=== PATIENT | male | born 1940 | race Caucasian/White ===

== ENCOUNTER 2018-12-08 10:37 | Emergency (ER) | payer MEDICARE ==
[~2018-12-08] VITALS: Ht 167.6 cm; Wt 123.0 kg
[~2018-12-08 10:37] MED LIST: ALLOPURINOL100 MG PO; ASPIR 8181 MG PO; CALAMINE SUSPE177 ML TOP; CARDURA2 MG PO; CARDURA4 MG PO; CARVEDILOL12.5 MG PO; COUMADIN2.5 MG PO; COUMADIN5 MG PO; COUMADIN7.5 MG PO; COZAAR100 MG PO; COZAAR25 MG; DEMADEX20 MG PO; FERROUS SULFAT325 MG PO; FLUZONE HI180 MCG/07 IM; FUROSEMIDE20 MG PO; FUROSEMIDE40 MG PO; FUROSEMIDE80 MG PO; HYDROCHLOROTHIA25 MG PO; HYDROCODON-ACE1 EA11 PO; ITCH RELIEF CRE28 GM TOP; K-TAB ER20 MEQ PO; K-TAB10 MEQ PO; LASIX40 MG PO; LEVAQUIN750 MG PO; LIPITOR20 MG PO; LORATADINE10 MG PO; MAGNESIUM400 M1 PO; METOCLOPRAMIDE10 MG PO; METOLAZONE2.5 MG; METOLAZONE5 MG PO; METOPROLOL TAR100 MG PO; METOPROLOL TART25 MG PO; METOPROLOL TART50 MG PO; MIRAPEX0.125 MG PO; NITROGLYCERIN0.4 MG SL; NORCO 7.5-3251 EACH PO; NORVASC10 MG PO; NORVASC5 MG PO; OXYCODONE HCL5 MG PO; PANTOPRAZOLE SO40 MG PO; PAROXETINE HCL20 MG PO; POTASSIUM CHLO10 MEQ PO; POTASSIUM CHLO20 ME1 PO; PROCTOSOL-HC30 GM TOP; SIMVASTATIN20 MG PO; SPIRONOLACTONE25 MG PO; TENORMIN50 MG PO; TERAZOSIN HCL5 MG PO; TOPROL XL100 MG PO; TORSEMIDE20 MG PO; VITAMIN C1000 MG PO; VITAMIN C500 M1 PO; WARFARIN SODIU7.5 MG PO; WARFARIN SODIUM5 MG PO; ZAROXOLYN5 MG PO; ZITHROMAX500 MG PO; ZOCOR20 MG PO
[2018-12-08] MEDS ORDERED: ZOCOR80 MG PO (10:59)
--- OUTSIDE RECORDS SUMMARY | 2018-12-08 11:14 | XMS ---
PreManage Notification: FROYLAN GARCIA Security Bell Maker Events No recent Security Events currently on file CRITERIA MET - [facility] CARE PROVIDERS AMEE URRUTIA [facility] 09/16/2018-Current PHONE: Unknown AMEE URRUTIA Primary Care Current PHONE: Unknown Adolph Veras MD Primary Care Current PHONE: [phone] ormacie Ungre or Printed Circuit Board Panels Developer Current PHONE: Unknown Jadon has no Care Guidelines for this patient. Care History Medical/Surgical 10/07/2018 [facility] - PATIENT IS CURRENTLY RECEIVING HOME HEALTH SERVICES THRU [facility]. PLEASE CONTACT HOME HEALTH SERVICES AT [phone] WHEN PATIENT IS SEEN IN THE ED. 09/16/2018 [facility] - Patient is currently established with [facility]. If patient is seen in the ED during business hours. Please contact CHWs at [facility]. Care Recommendation: This patient has had 5 or more Emergency Department visits in the last 12 months.\T\nbsp; Patient requires education on the scope and purpose of the ED as an acute care provider not a Primary Care Provider and should not be utilized for chronic conditions.\T\nbsp; These are guidelines and the provider should exercise clinical judgment when providing care. E.D. VISIT COUNT (12 MO.) 2 [facility] TOTAL 2 NOTE: Visits indicate total known visits. ED/UCC VISIT TRACKING (12 MO.) 12/08/2018 10:38 [facility] [place] TYPE: Emergency COMPLAINT: - R LEG PAIN,NON INJURY 09/16/2018 12:32 [facility] [place] TYPE: Emergency COMPLAINT: - SWELLING IN LEGS/NON INJURY INPATIENT VISIT TRACKING (12 MO.) 09/16/2018 12:33 [facility] [place] TYPE: Medical Surgical COMPLAINT: - LYMPHEDEMA DIAGNOSES: - Chronic kidney disease, unspecified - Other exterminator (current) drug therapy - Acute kidney failure, unspecified - Chronic combined systolic (congestive) and diastolic (congestive) heart failure - Allergy status to other drugs, medicaments and biological substances status - Chronic atrial fibrillation - Do not resuscitate - Lymphedema, not elsewhere classified - Hypertensive heart and chronic kidney disease with heart failure and stage 1 through stage 4 chronic kidney disease, or unspecified chronic kidney disease - Obstructive sleep apnea (adult) (pediatric) - Pulmonary hypertension, unspecified - Blister (nonthermal), right lower leg, initial encounter - intermediate (current) use of aspirin - Presence of cardiac pacemaker 05/12/2018 08:18 [facility] [place] TYPE: Cardiovacular Care Unit DIAGNOSES: - Paroxysmal atrial fibrillation [id number]
== END 2018-12-08 13:55 | disposition home or self-care (01) ==
LOC: ED 10:37
DX: L03.115 Cellulitis of right lower limb (principal); R60.0 Localized edema; I48.91 Unspecified atrial fibrillation; Z88.8 Allergy status to other drugs, medicaments and biological substances; Z79.82 Long term (current) use of aspirin; Z79.899 Other long term (current) drug therapy
CPT/HCPCS: 80048; 83605; 85025; 87040; 93971; 96365; 99284-25; J0696

== ENCOUNTER 2019-01-14 17:06 | Emergency (ER) | payer MEDICARE ==
[~2019-01-14] VITALS: Ht 167.6 cm; Wt 123.0 kg
--- OUTSIDE RECORDS SUMMARY | ~2019-01-14 | XMS | Encounter Summary ---
Demographics + + + | Address | [address] | | | [place] [address] | + + + | Home Phone | | + + + | Preferred Language | Unknown | + + + | Marital Status | | + + + | Protestant Affiliation | Unknown | + + + | Race | Unknown | + + + | Ethnic Group | Unknown | + + + Author + + + | Author | [facility] | + + + | Organization | [facility] | + + + | Address | [...] Team Providers + +------+ + | Care Ethologist Name | Role | Phone | + +------+ + | Kushal Costa MD | PCP | | + +------+ + Encounter Details +--------+ + + + + | Date | Type | Department | Care Team | Description | +--------+ + + + + | 11/23/ | Telephone | [facility] | [place], | | | 2019 | | [address] | [address] | | | | | [address] | | | | | | [place] [address] | | | | | | [phone] | | | +--------+ + + + + Social History + +-------+ [...] +---------+ + | No | | | | + + +---------+ + + + + | Sex Assigned at | Date Recorded | | | | + + + | Not on file | | + + + as of this encounter Plan of Treatment +--------+ + + + + | Date | Type | Specialty | Care Team | Description | +--------+ + + + + | 02/09/ | Documentati | Cardiology | | | | 2018 | on Only | | | | +--------+ + + + + | 02/15/ | Office | Nephrology | Danny Gandara MD | | | 2019 | Visit | | [address] | | | | | | [address] [place] | | | | | | [address] | | | | | | | | +--------+ + + + + + +--------+ + + | Name | Priori | Associated Diagnoses | Order Schedule | | | ty | | | + +--------+ + + | Basic metabolic panel | Routin | CKD (chronic | Expected: | | | e | kidney disease) | 11/30/2018, Expires: | | | | stage 3, GFR 30-59 | 11/23/2019 | | | | ml/min (HCC) | | | | | Essential | | | | | hypertension, benign | | | | | Hypokalemia | | + +--------+ + + | Renal function panel | Routin | CKD (chronic | Expected: | | | e | kidney disease) | 12/21/2018, Expires: | | | | stage 3, GFR 30-59 | 11/23/2019 | | | | ml/min (HCC) | | | | | Essential | | | | | hypertension, benign | | | | | Hypokalemia | | + +--------+ + + | Magnesium | Routin | CKD (chronic | Expected: | | | e | kidney disease) | 12/21/2018, Expires: | | | | stage 3, GFR 30-59 | 11/23/2019 | | | | ml/min (HCC) | | | | | Essential | | | | | hypertension, benign | | | | | Hypokalemia | | + +--------+ + + | CBC W/Auto Diff (Reflex to | Routin | CKD (chronic | Expected: | | Manual) | e | kidney disease) | 12/21/2018, Expires: | | | | stage 3, GFR 30-59 | 11/23/2019 | | | | ml/min (HCC) | | | | | Essential | | | | | hypertension, benign | | | | | Hypokalemia | | + +--------+ + + as of this encounter Visit Diagnoses + + | Diagnosis | + + | CKD (chronic kidney disease) stage 3, GFR 30-59 ml/min (HCC) - Primary | + + | Chronic kidney disease, Stage III (moderate) | + + | Essential hypertension, benign | + + | Hypokalemia | + + | Hypopotassemia | + +"
--- OUTSIDE RECORDS SUMMARY | ~2019-01-14 | XMS | Encounter Summary ---
Demographics + + + | Address | [address] | | | [place] [address] | + + + | Home Phone | | + + + | Preferred Language | Unknown | + + + | Marital Status | | + + + | Druze Affiliation | [id number] | + + + | Race | Unknown | + + + | Ethnic Group | Unknown | + + + Author + + + | Author | [facility] | | | and [place] | + + + | Organization | [facility] | | | [...] Team Providers + +------+ + | Care Logistics Coordinator Name | Role | Phone | + +------+ + | Kushal Costa MD | PCP | | + +------+ + Encounter Details +--------+ + + + + | Date | Type | Department | Care Team | Description | +--------+ + + + + | 10/21/ | Orders Only | [facility] | Chris Ramsey | Lumbar radiculopathy | | 2019 | | PHYSIATRY [address] | (Primary Dx) | | | | [facility], | [place], [place] | | | | | [place] [address] | [address] | | | | | [phone] | | | +--------+ + + + [...] as of this encounter Plan of Treatment + +--------+ + + | Name | Priori | Associated Diagnoses | Order Schedule | | | ty | | | + +--------+ + + | FL BENITEZ Lumbar Transforaminal | Routin | Lumbar | Expected: | | | e | radiculopathy | 10/21/2018, Expires: | | | | | 10/21/2019 | + +--------+ + + as of this encounter Visit Diagnoses + + | Diagnosis | + + | Lumbar radiculopathy - Primary | + + | Thoracic or lumbosacral neuritis or radiculitis, unspecified | + +"
--- OUTSIDE RECORDS SUMMARY | ~2019-01-14 | XMS | Clinical Summary ---
Demographics + + + | Address | [address] | | | [place] [address] | + + + | Home Phone | | + + + | Preferred Language | Unknown | + + + | Marital Status | | + + + | Anglican Affiliation | Unknown | + + + | Race | Unknown | + + + | Ethnic Group | Unknown | + + + Author + + + | Author | [facility] | + + + | Organization | [facility] | + + + | Address | [...] Team Providers + +------+ + | Care Pulling Unit Operator Name | Role | Phone | + +------+ + | Amee Costa MD | PP | | + +------+ + Allergies + + + + + + | Active Allergy | Reactions | Severity | Noted | Comments | | | | | Date | | + + + + + + | Lisinopril | Rash | Medium | 10/24/19 | | | | | | 18 | | + + + + + + | Vitamin K And | Shortness of Breath | High | 12/23/19 | | | Related | | | 18 | | + + + + + + | Warfarin | Itching, Rash | Medium | 10/27/19 | | | | | | 18 | | + + + + + + Current Medications + + +---------+---------+------+------+-------+ | Prescription | Sig. | Disp. | Refills | Star | End | Statu | | | | | | t | Date | s | | | | | | Date | | | + + +---------+---------+------+------+-------+ | PARoxetine (PAXIL) | Take 20 mg by mouth | | | | | Activ | | 20 MG tablet | every morning. | | | | | e | + + +---------+---------+------+------+-------+ | ascorbic acid | Take 1,000 mg by | | | | | Activ | | (VITAMIN C) 500 MG | mouth daily. | | | | | e | | tablet | | | | | | | + + +---------+---------+------+------+-------+ | aspirin 81 MG | Take 81 mg by mouth | | | | | Activ | | chewable tablet | daily with | | | | | e | | | breakfast. | | | | | | + + +---------+---------+------+------+-------+ | mometasone | Apply topically | | | | | Activ | | (ELOCON) 0.1 % cream | daily. | | | | | e | + + +---------+---------+------+------+-------+ | allopurinol | Take 2 tablets by | 60 | 11 | 06/0 | 06/0 | Activ | | (ZYLOPRIM) 100 MG | mouth daily. | tablet | | 4/20 | 4/20 | e | | tablet | | | | 18 | 19 | | + + +---------+---------+------+------+-------+ | atorvastatin | Take 20 mg by mouth | | | | | Activ | | (LIPITOR) 20 MG | nightly. | | | | | e | | tablet | | | | | | | + + +---------+---------+------+------+-------+ | pramipexole | Take 0.125 mg by | | | | | Activ | | (MIRAPEX) 0.125 MG | mouth 2 (two) times | | | | | e | | tablet | daily as needed. | | | | | | + + +---------+---------+------+------+-------+ | | Take 1 tablet by | | | | | Activ | | HYDROcodone-acetamin | mouth every 6 (six) | | | | | e | | ophen (NORCO) 5-325 | hours as needed for | | | | | | | MG per tablet | Pain. | | | | | | + + +---------+---------+------+------+-------+ | cholecalciferol | Take 1,000 Units by | | | | | Activ | | (VITAMIN D-3) 1000 | mouth daily. | | | | | e | | units tablet | | | | | | | + + +---------+---------+------+------+-------+ | simvastatin | Take 20 mg by mouth | | | | 03/2 | Disco | | (ZOCOR) 20 MG tablet | nightly. | | | | 2/20 | ntinu | | | | | | | 19 | ed | + + +---------+---------+------+------+-------+ | metoprolol | Take 50 mg by mouth | | | | 03/2 | Disco | | (LOPRESSOR) 50 MG | 2 (two) times daily. | | | | 2/20 | ntinu | | tablet | | | | | 19 | ed | + + +---------+---------+------+------+-------+ | losartan (COZAAR) | Take 100 mg by mouth | | | | 03/2 | Disco | | 100 MG tablet | daily. | | | | 2/20 | ntinu | | | | | | | 19 | ed | + + +---------+---------+------+------+-------+ | amLODIPine | Take 5 mg by mouth | | | | 03/2 | Disco | | (NORVASC) 5 MG | daily. | | | | 2/20 | ntinu | | tablet | | | | | 19 | ed | + + +---------+---------+------+------+-------+ | terazosin (HYTRIN) | Take 1 capsule by | 30 | 11 | 03/0 | 03/2 | Disco | | 1 MG capsule | mouth nightly. | capsule | | 5/20 | 2/20 | ntinu | | | | | | 18 | 19 | ed | + + +---------+---------+------+------+-------+ | torsemide | Take 2 tablets by | 120 | 11 | 02/0 | 03/2 | Disco | | (DEMADEX) 20 MG | mouth 2 (two) times | tablet | | 4/20 | 2/20 | ntinu | | tablet | daily. | | | 19 | 19 | ed | + + +---------+---------+------+------+-------+ | potassium chloride | Take 4 tablets by | 240 | 11 | 02/0 | 03/2 | Disco | | (K-DUR) 10 MEQ | mouth 2 (two) times | tablet | | 4/20 | 2/20 | ntinu | | tablet | daily with meals. | | | 19 | 19 | ed | + + +---------+---------+------+------+-------+ | metolazone | Take 1 tablet by | 30 | 11 | 02/0 | 03/2 | Disco | | (ZAROXOLYN) 10 MG | mouth daily. | tablet | | 4/20 | 2/20 | ntinu | | tablet | | | | 19 | 19 | ed | + + +---------+---------+------+------+-------+ Active Problems + + + | Problem | Noted Date | + + + | IZZY (acute kidney injury) (FORM[facility]) | 01/06/2019 | + + + | Pulmonary hypertension (HCC) | 12/27/2018 | + + + | Right heart failure (HCC) | 12/27/2018 | + + + | Chronic diastolic heart failure (HCC) | 12/27/2018 | + + + | Volume overload | 09/16/2018 | + + + | Electrolyte imbalance risk | 07/06/2018 | + + + | Spinal stenosis at L4-L5 level | 06/11/2018 | + + + | Vitamin D deficiency | 03/23/2018 | + + + | GI bleeding | 03/10/2018 | + + + + + | Overview: Overview: | | On warfarin 2016 | + + + + + | NEETU (obstructive sleep apnea) | 03/10/2018 | + + + + + | Overview: Overview: | | Not compliant with CPAP | + + + + + | Secondary hyperparathyroidism (HCC) | 12/22/2017 | + + + | Chronic atrial fibrillation (HCC) | 11/25/2017 | + + + | Cardiac pacemaker in situ | 11/25/2017 | + + + | CKD (chronic kidney disease) stage 3, GFR 30-59 ml/min ([facility]) | 10/27/2017 | + + + | Essential hypertension, benign | 10/27/2017 | + + + | Primary osteoarthritis involving multiple joints | 10/27/2017 | + + + | Hypokalemia | 10/27/2017 | + + + | Bilateral lower extremity edema | 10/27/2017 | + + + | Hyperuricemia | 10/27/2017 | + + + Resolved Problems + + + + | Problem | Noted | Resolved | | | Date | Date | + + + + | SOB (shortness of breath) | 12/28/19 | | | | 19 | 9 | + + + + Encounters +--------+ + + + + | Date | Type | Specialty | Care Team | Description | +--------+ + + + + | 12/27/ | Hospital | | Enriqueta Reese, | Hypervgarcia, | | 2019 - | Encounter | | MD Carrizales, | unspecified | | | | | MD Franki | hypervolemia type | | 01/08/ | | | Shar Dawson, | (Primary Dx) | | 2018 | | | MD Clinton, | | | | | | Nellie Adan MD | | +--------+ + + + + +---+ + | | Discharge | | | Summaries | | | - | | | Oz, | | | Nellie | | | MD Loco | | | - | | | 01/08/2019 | | | 9:30 AM | | | PDT | | | Formatting | | | of this | | | note may be | | | different | | | from the | | | original.[facility] | [facility]: | | | Hospitalist | | | Physician | | | Discharge | | | Summary | | | Patient | | | ID:Michael Cr | | | BanducciMRN | | | : | | | [id number]/ | | | [id number] | | | y.o.Admit | | | date: | | | 12/27/2018Di | | | scharge | | | date: | | | 01/08/2019Ad | | | mitting | | | Physician: | | | Kalavati | | | Paila, MD | | | Discharge | | | Physician: | | | Nellie | | | Loco | | | Padayatty, | | | MDConsultan | | | ts: | | | Treatment | | | Team: | | | Admitting | | | Provider: | | | Kalavati | | | Paila, | | | MDPrimary | | | Discharge | | | Diagnoses: | | | IZZY | | | (acute | | | kidney | | | injury) | | | (HCC) | | | Secondary | | | Discharge | | | Diagnoses: | | | CKD | | | (chronic | | | kidney | | | disease) | | | stage 3, | | | GFR 30-59 | | | ml/min | | | Morbid | | | obesity | | | Anemia of | | | chronic | | | disease | | | Essential | | | hypertensio | | | n, benign | | | Bilateral | | | lower | | | extremity | | | edema | | | Chronic | | | atrial | | | fibrillatio | | | n (HCC) | | | Cardiac | | | pacemaker | | | in situ | | | NEETU | | | (obstructiv | | | e sleep | | | apnea) | | | Pulmonary | | | hypertensio | | | n (HCC) | | | Right heart | | | failure | | | (HCC) | | | Chronic | | | diastolic | | | heart | | | failure | | | (HCC)Resolv | | | ed | | | Problems: | | | SOB | | | (shortness | | | of | | | breath)HPI | | | and | | | Hospital | | | Course: A | | | 78-year-old | | | male with | | | history of | | | hypertensio | | | n, | | | hyperlipide | | | germaine, | | | obstructive | | | sleep | | | apnea, not | | | using CPAP, | | | chronic | | | kidney | | | disease | | | stage 3 | | | with | | | chronic | | | anemia, | | | chronic | | | diastolic | | | CHF, | | | chronic | | | AFib with | | | status post | | | Watchman | | | device. | | | Cannot | | | tolerate | | | anticoagula | | | tion due to | | | GI bleed. | | | Admitted | | | with acute | | | onset of | | | dyspnea.HOS | | | PITAL | | | COURSE: | | | The patient | | | admitted | | | with acute | | | shortness | | | of breath. | | | The | | | patient was | | | diuresed | | | and then | | | Nephrology | | | was also | | | consulted. | | | He had | | | acute on | | | chronic | | | kidney | | | disease and | | | initially | | | his | | | creatinine | | | improved | | | and then | | | subsequentl | | | y his | | | creatinine | | | declined. | | | His | | | diuresis | | | was | | | discontinue | | | d. The | | | patient | | | also had | | | episode of | | | hypotension | | | on minimal | | | dose of | | | antihyperte | | | nsives, | | | which were | | | all | | | discontinue | | | d. He was | | | completely | | | asymptomati | | | c with the | | | hypotension | | | . After | | | discussing | | | with | | | Nephrology, | | | | | | antihyperte | | | nsives and | | | diuretics | | | were all | | | discontinue | | | d. I have | | | discussed | | | with Dr. | | | Akoum, the | | | patient's | | | primary | | | nephrologis | | | t. He will | | | check his | | | blood | | | pressure | | | twice daily | | | and check | | | his weight | | | daily and | | | instructed | | | to restart | | | torsemide | | | and | | | potassium | | | as his | | | weight | | | increases | | | by 3-5 | | | pounds in 3 | | | days. The | | | patient | | | remains in | | | negative | | | fluid | | | balance.He | | | has chronic | | | atrial | | | fibrillatio | | | n, but he | | | is not a | | | candidate | | | for any | | | anticoagula | | | tion due to | | | GI bleed. | | | He is | | | status post | | | Watchman's | | | procedure. | | | He has | | | acute on | | | chronic | | | kidney | | | disease | | | stage 3. | | | Creatinine | | | is trending | | | down. He | | | has anemia | | | of chronic | | | disease and | | | hemoglobin | | | had | | | remained | | | stable. | | | His blood | | | pressure | | | has been | | | controlled | | | off | | | medications | | | . The | | | patient has | | | morbid | | | obesity | | | with | | | obstructive | | | sleep | | | apnea, not | | | compliant | | | with CPAP. | | | He had | | | echocardiog | | | zachariah done on | | | | | | 12/27/2018, | | | which | | | showed EF | | | of 60-65 | | | percent | | | with severe | | | biatrial | | | enlargement | | | . The | | | patient has | | | bilateral | | | lower | | | extremity | | | ulcers. | | | MARCIA was | | | negative. | | | The patient | | | will | | | follow up | | | outpatient | | | with | | | pediatric nurse. | | | Wound | | | care | | | instruction | | | s have been | | | given. | | | Plan | | | discussed | | | in detail | | | with the | | | patient and | | | his . | | | The | | | patient | | | advised to | | | call his | | | PCP if | | | systolic | | | blood | | | pressure is | | | over 170. | | | Also | | | discussed | | | with Dr. | | | Akoum prior | | | to | | | discharge.D | | | ischarged | | | Condition: | | | Stable for | | | discharge | | | as stated | | | above.Signi | | | ficant | | | Diagnostic | | | Studies:No | | | results | | | found.Disch | | | arge | | | Vitals:Yessica | | | ls: | | | 01/07/19 | | | 2027 | | | 01/08/19 | | | 0008 | | | 01/08/19 | | | 0407 | | | 01/08/19 | | | 0814 BP: | | | 120/83 | | | 114/62 | | | 110/69 | | | 155/83 BP | | | Location: | | | Left upper | | | arm Right | | | upper arm | | | Right upper | | | arm Right | | | upper arm | | | Pulse: 85 | | | 79 79 80 | | | Resp: 18 16 | | | 18 18 | | | Temp: 97.6 | | | F (36.4 | | | C) 98 F | | | (36.7 C) | | | 97.8 F | | | (36.6 C) | | | 97.4 F | | | (36.3 C) | | | TempSrc: | | | Oral Oral | | | Oral Oral | | | SpO2: 94% | | | 94% 93% 94% | | | Weight: | | | 109.3 kg | | | (241 lb) | | | Height: | | | Discharge | | | | | | Exam:Genera | | | l: Well | | | nourished.P | | | sych: | | | Alert and | | | oriented x | | | 3. Calm, | | | cooperative | | | .Cardiovasc | | | ular: | | | Regular | | | rate and | | | rhythm, no | | | murmurs, no | | | thrills. | | | Normal | | | PMI.Respira | | | tory: Clear | | | to | | | auscultatio | | | n, no | | | wheezing or | | | crackles, | | | breathing | | | non | | | labored.Pac | | | emaker | | | present | | | left chest | | | wallGastroi | | | ntestinal: | | | Soft, | | | non-tender, | | | | | | non-distend | | | ed, | | | positive | | | bowel | | | sounds. No | | | HSM.Musculo | | | skeletal: | | | No edema in | | | bilateral | | | lower | | | extremities | | | . No joint | | | swelling.Sk | | | in: | | | Bilateral | | | lower | | | extremity | | | compression | | | stockings | | | present.Nec | | | k: No JVD, | | | Trachea | | | midline.Tammi | | | rological: | | | Non focal. | | | Motor | | | grossly | | | intact.LABS | | | : Recent | | | LabsLab | | | | | | 2 | | | | | | 9 | | | | | | 4 WBC 8.75 | | | 8.75 7.89 | | | RBC 4.20 | | | 4.03* 4.00* | | | HGB 12.3* | | | 12.1* 12.0* | | | HCT 38.0* | | | 36.8* 36.7* | | | MCV 90.6 | | | 91.4 91.6 | | | MCH 29.4 | | | 29.9 30.0 | | | MCHC 32.4 | | | 32.8 32.8 | | | RDW 53.4* | | | 52.5 53.4* | | | PLT 201 190 | | | 195 MPV | | | 9.6 9.2 9.0 | | | DIFFTYPE | | | AUTOMATED | | | AUTOMATED | | | AUTOMATED | | | Recent | | | LabsLab | | | | | | 4 | | | 43 | | | 8 | | | | | | 6 NA 140 | | | 139 139 K | | | 3.8 3.3* | | | 3.4* CL 99 | | | 96* 95* CO2 | | | 32 33* 33* | | | BUN 94* | | | 96* 89* | | | CREATININE | | | 2.6* 2.8* | | | 2.9* GLUF | | | 105* 96 | | | 103* No | | | results for | | | input(s): | | | CKTOTAL, | | | TROPONINI, | | | TROPONINT, | | | CKMBINDEX | | | in the last | | | 168 hours. | | | Recent | | | LabsLab | | | | | | 4 | | | | | | 8 | | | | | | 6 PHOS 3.6 | | | 3.3 3.5 | | | Recent | | | LabsLab | | | | | | 2 | | | | | | 9 | | | | | | 4 MG 2.1 | | | 2.1 2.3 | | | Invalid | | | input(s): | | | ABGDisposit | | | ion: | | | HomeFollow | | | up:Amee | | | Igor, | | | [id number], [place] | | | [id number] | | | n [place] | | | [phone] | | [phone] | | | ule an | | | appointment | | | as soon as | | | possible | | | for a visit | | | in 3 | | | daysresume | | | care with | | | all | | | providers | | | you were | | | seeing | | | prior to | | | admission | | | Danny H | | | Akoum, | | | [id number] | | | [address] | | | [place] | | | [place] | | | [place] | | | [phone] | | | [phone] | | | ule an | | | appointment | | | as soon as | | | possible | | | for a visit | | | in 1 month | | | Medication | | | List | | | CONTINUE | | | taking | | | these | | | medications | | | | | | allopurinol | | | 100 MG | | | tabletQTY: | | | 60 | | | tabletRefil | | | ls: | | | 11Commonly | | | known as: | | | ZYLOPRIMTak | | | e 2 tablets | | | by mouth | | | daily. | | | ascorbic | | | acid 500 MG | | | | | | tabletRefil | | | ls: | | | 0Commonly | | | known as: | | | VITAMIN C | | | aspirin 81 | | | MG chewable | | | | | | tabletRefil | | | ls: 0 | | | atorvastati | | | n 20 MG | | | tabletRefil | | | ls: | | | 0Commonly | | | known as: | | | LIPITOR | | | cholecalcif | | | pieter 1000 | | | units | | | tabletRefil | | | ls: | | | 0Commonly | | | known as: | | | VITAMIN D-3 | | | | | | HYDROcodone | | | -acetaminop | | | hen 5-325 | | | MG per | | | tabletRefil | | | ls: | | | 0Commonly | | | known as: | | | NORCO | | | mometasone | | | 0.1 % | | | creamRefill | | | s: | | | 0Commonly | | | known as: | | | ELOCONNotes | | | to | | | patient: | | | Follow home | | | regime | | | PARoxetine | | | 20 MG | | | tabletRefil | | | ls: | | | 0Commonly | | | known as: | | | PAXIL | | | pramipexole | | | 0.125 MG | | | tabletRefil | | | ls: | | | 0Commonly | | | known as: | | | MIRAPEX | | | You might | | | also be | | | taking | | | other | | | medications | | | not listed | | | above. If | | | you have | | | questions | | | about any | | | of your | | | other | | | medications | | | , talk to | | | the person | | | who | | | prescribed | | | them or | | | your | | | Primary | | | Care | | | Provider. | | | STOP | | | taking | | | these | | | medications | | | | | | amLODIPine | | | 5 MG | | | tabletCommo | | | nly known | | | as: | | | NORVASC | | | losartan | | | 100 MG | | | tabletCommo | | | nly known | | | as: COZAAR | | | metolazone | | | 10 MG | | | tabletCommo | | | nly known | | | as: | | | ZAROXOLYN | | | metoprolol | | | 50 MG | | | tabletCommo | | | nly known | | | as: | | | LOPRESSOR | | | potassium | | | chloride 10 | | | MEQ | | | tabletCommo | | | nly known | | | as: K-DUR | | | simvastatin | | | 20 MG | | | tabletCommo | | | nly known | | | as: ZOCOR | | | terazosin 1 | | | MG | | | capsuleComm | | | only known | | | as: HYTRIN | | | torsemide | | | 20 MG | | | tabletCommo | | | nly known | | | as: | | | DEMADEX | | | Nellie | | | Loco | | | Padayatty, | | | MD3/ | | | 9:30 | | | AMCode | | | Status: | | | Full | | | CodeDischar | | | ge took 45 | | | minutes, | | | to include | | | final | | | examination | | | , | | | discussion | | | of | | | admission, | | | and | | | preparation | | | of | | | prescriptio | | | ns, | | | instruction | | | s for | | | ongoing | | | care, | | | follow up | | | and | | | dictation | | | of | | | summary.Thi | | | s entry has | | | been | | | created | | | using | | | Dragon | | | Medical | | | Speech | | | Recognition | | | software | | | and EPIC | | | macros. The | | | entry has | | | been | | | reviewed | | | and there | | | may still | | | exist sound | | | alike word | | | errors. | +---+ + +--------+ +---+ + + | 12/26/ | Hospital | | See, Medical | Chest pain, | | 2019 | Encounter | | Record | unspecified type | +--------+ +---+ + + | 12/26/ | Ancillary | | See, Medical | Chest pain, | | 2019 | Orders | | Record | unspecified type | +--------+ +---+ + + | 11/24/ | Documentati | | Tobias, | Other (B/P Log | | 2019 | on Only | | JOSÉ MIGUEL Cannon | 09/30/18-11/24/18) | +--------+ +---+ + + | 11/23/ | Office | | Danny Gandara MD | Bilateral lower | | 2019 | Visit | | | extremity edema | | | | | | (Primary Dx); CKD | | | | | | (chronic kidney | | | | | | disease) stage 3, | | | | | | GFR 30-59 ml/min | | | | | | (HCC); Essential | | | | | | hypertension, | | | | | | benign; Secondary | | | | | | hyperparathyroidism | | | | | | (HCC); Electrolyte | | | | | | imbalance risk | +--------+ +---+ + + | 11/23/ | Telephone | | Jatinder, | | | 2018 | | | JOSÉ MIGUEL Cannon | | +--------+ +---+ + + | 11/23/ | Documentati | | Jatinder | Labs Only | | 2018 | on Only | | JOSÉ MIGUEL Cannon | | +--------+ +---+ + + | 11/10/ | Documentbridger | | | Pacemaker Check | | 2019 | on Only | | | (in-office) | +--------+ +---+ + + | 11/10/ | Orders Only | | Derrek Barnhart, | | | 2018 | | | | | +--------+ +---+ + + | 11/04/ | Documentati | | Yamilet Sidhu | Other ( Jeremiah | | 2019 | on Only | | J, ENVIRONMENTAL ANALYST | records) | +--------+ +---+ + + | 11/02/ | Documentati | | Yamilet Sidhu | Other (New referral | | 2019 | on Only | | J, ENVIRONMENTAL ANALYST | to cardiology from | | | | | | Dr Costa) | +--------+ +---+ + + 10/26/ | Office | | Danny Gandara MD | Bilateral lower | | 2019 | Visit | | | extremity edema | | | | | | (Primary Dx); CKD | | | | | | (chronic kidney | | | | | | disease) stage 3, | | | | | | GFR 30-59 ml/min | | | | | | ([facility]); Hypokalemia; | | | | | | Electrolyte | | | | | | imbalance risk; | | | | | | Secondary | | | | | | hyperparathyroidism | | | | | | ([facility]); Hyperuricemia | +--------+ +---+ + + | 10/26/ | Telephone | | Jatinder, | | | 2019 | | | JOSÉ MIGUEL Cannon | | +--------+ +---+ + + | 10/26/ | Documentati | | Jatinder, | Other (Labs) | | 2019 | on Only | | JOSÉ MIGUEL Cannon | | +--------+ +---+ + + | 10/23/ | Documentati | | Jatinder, | Other (lab) | | 2019 | on Only | | JOSÉ MIGUEL Cannon | | +--------+ +---+ + + | 10/23/ | Orders Only | | Jatinder, | CKD (chronic kidney | | 2018 | | | JOSÉ MIGUEL Cannon | disease) stage 3, | | | | | | GFR 30-59 ml/min | | | | | | ([facility]); Hypokalemia; | | | | | | Bilateral lower | | | | | | extremity edema; | | | | | | Essential | | | | | | hypertension, | | | | | | benign; | | | | | | Hypervolemia, | | | | | | unspecified | | | | | | hypervolemia type; | | | | | | Secondary | | | | | | hyperparathyroidism | | | | | | (HCC) | +--------+ +---+ + + from Last 3 Months Immunizations + + + + | Name | Dates Previously Given | Next Due | + + + + | INFLUENZA PF, | 12/27/2018 | | | QUADRIVALENT | | | | (PED/ADOL/ADULT) | | | + + + + Social History + [...] on file | | + + + Last Filed Vital Signs + + + + | Vital Sign | Reading | Time Taken | + + + + | Blood Pressure | 155/83 | 01/08/2019 8:14 AM PDT | + + + + | Pulse | 80 | 01/08/2019 8:14 AM PDT | + + + + | Temperature | 36.3 C (97.4 F) | 01/08/2019 8:14 AM PDT | + + + + | Respiratory Rate | 18 | 01/08/2019 8:14 AM PDT | + + + + | Oxygen Saturation | 94% | 01/08/2019 8:14 AM PDT | + + + + | Inhaled Oxygen | - | - | | Concentration | | | + + + + | Weight | 109.3 kg (241 lb) | 01/07/2019 8:27 PM PDT | + + + + | Height | 167.6 cm (5' 6") | 12/28/2018 7:55 AM PDT | + + + + | Body Mass Index | 38.9 | 01/07/2019 8:27 PM PDT | + + + + Plan of Treatment +--------+ + + + + | Date | Type | Specialty | Care Team | Description | +--------+ + + + + | 02/09/ | Documentati | | | | | 2018 | on Only | | | | +--------+ + + + + | 02/15/ | Office | | Danny Gandara MD | | | 2019 | Visit | | [address] | | | | | | [address] [place] | | | | | | [id number] | | | | | | | | +--------+ + + + + + + + + + | Health Maintenance | Due Date | Last Done | Comments | + + + + + | Vaccine: | | | | | Dtap/Tdap/Td (1 - | 9 | | | | Tdap) | | | | + + + + + | Vaccine: Zoster (1 | | | | | of 2) | 0 | | | + + + + + | Vaccine: | | | | | Pneumococcal 65+ | 5 | | | | Low/Medium Risk (1 | | | | | of 2 - PCV13) | | | | + + + + + | Vaccine: Influenza | Completed | 12/27/2018 | | + + + + + Procedures + +--------+ + + + | Procedure Name | Priori | Date/Time | Associated Diagnosis | Comments | | | ty | | | | + +--------+ + + + | RENAL FUNCTION PANEL | Routin | 01/08/2019 | | Results for this | | | e | 6:14 AM | | procedure are in the | | | | PDT | | results section. | + +--------+ + + + | RENAL FUNCTION PANEL | Routin | 01/07/2019 | | Results for this | | | e | 4:38 AM | | procedure are in the | | | | PDT | | results section. | + +--------+ + + + | RENAL FUNCTION PANEL | Routin | 01/06/2019 | | Results for this | | | e | 5:36 AM | | procedure are in the | | | | PDT | | results section. | + +--------+ + + + | RENAL FUNCTION PANEL | Routin | 01/05/2019 | | Results for this | | | e | 6:12 AM | | procedure are in the | | | | PDT | | results section. | + +--------+ + + + | MAGNESIUM | Routin | 01/05/2019 | | Results for this | | | e | 6:12 AM | | procedure are in the | | | | PDT | | results section. | + +--------+ + + + | CBC W/AUTO DIFF | Routin | 01/05/2019 | | Results for this | | (REFLEX TO MANUAL) | e | 6:12 AM | | procedure are in the | | | | PDT | | results section. | + +--------+ + + + | RENAL FUNCTION PANEL | Routin | 01/04/2019 | | Results for this | | | e | 5:49 AM | | procedure are in the | | | | PDT | | results section. | + +--------+ + + + | MAGNESIUM | Routin | 01/04/2019 | | Results for this | | | e | 5:49 AM | | procedure are in the | | | | PDT | | results section. | + +--------+ + + + | CBC W/AUTO DIFF | Routin | 01/04/2019 | | Results for this | | (REFLEX TO MANUAL) | e | 5:49 AM | | procedure are in the | | | | PDT | | results section. | + +--------+ + + + | RENAL FUNCTION PANEL | Routin | 01/03/2019 | | Results for this | | | e | 5:44 AM | | procedure are in the | | | | PDT | | results section. | + +--------+ + + + | MAGNESIUM | Routin | 01/03/2019 | | Results for this | | | e | 5:44 AM | | procedure are in the | | | | PDT | | results section. | + +--------+ + + + | CBC W/AUTO DIFF | Routin | 01/03/2019 | | Results for this | | (REFLEX TO MANUAL) | e | 5:44 AM | | procedure are in the | | | | PDT | | results section. | + +--------+ + + + | RENAL FUNCTION PANEL | Routin | 01/02/2019 | | Results for this | | | e | 5:52 AM | | procedure are in the | | | | PDT | | results section. | + +--------+ + + + | MAGNESIUM | Routin | 01/02/2019 | | Results for this | | | e | 5:52 AM | | procedure are in the | | | | PDT | | results section. | + +--------+ + + + | CBC W/AUTO DIFF | Routin | 01/02/2019 | | Results for this | | (REFLEX TO MANUAL) | e | 5:52 AM | | procedure are in the | | | | PDT | | results section. | + +--------+ + + + | RENAL FUNCTION PANEL | Routin | 01/01/2019 | | Results for this | | | e | 5:42 AM | | procedure are in the | | | | PDT | | results section. | + +--------+ + + + | MAGNESIUM | Routin | 01/01/2019 | | Results for this | | | e | 5:42 AM | | procedure are in the | | | | PDT | | results section. | + +--------+ + + + | CBC W/AUTO DIFF | Routin | 01/01/2019 | | Results for this | | (REFLEX TO MANUAL) | e | 5:42 AM | | procedure are in the | | | | PDT | | results section. | + +--------+ + + + | PROCALCITONIN | Add-On | 12/31/2018 | | Results for this | | | | 5:21 AM | | procedure are in the | | | | PDT | | results section. | + +--------+ + + + | RENAL FUNCTION PANEL | Routin | 12/31/2018 | | Results for this | | | e | 5:21 AM | | procedure are in the | | | | PDT | | results section. | + +--------+ + + + | MAGNESIUM | Routin | 12/31/2018 | | Results for this | | | e | 5:21 AM | | procedure are in the | | | | PDT | | results section. | + +--------+ + + + | CBC W/AUTO DIFF | Routin | 12/31/2018 | | Results for this | | (REFLEX TO MANUAL) | e | 5:21 AM | | procedure are in the | | | | PDT | | results section. | + +--------+ + + + | US MARCIA RESTING | Routin | 12/30/2018 | | Results for this | | | e | 12:31 PM | | procedure are in the | | | | PDT | | results section. | + +--------+ + + + | RENAL FUNCTION PANEL | Routin | 12/30/2018 | | Results for this | | | e | 5:28 AM | | procedure are in the | | | | PDT | | results section. | + +--------+ + + + | MAGNESIUM | Routin | 12/30/2018 | | Results for this | | | e | 5:28 AM | | procedure are in the | | | | PDT | | results section. | + +--------+ + + + | CBC W/AUTO DIFF | Routin | 12/30/2018 | | Results for this | | (REFLEX TO MANUAL) | e | 5:28 AM | | procedure are in the | | | | PDT | | results section. | + +--------+ + + + | MAGNESIUM | Routin | 12/29/2018 | | Results for this | | | e - AM | 5:55 AM | | procedure are in the | | | | PDT | | results section. | + +--------+ + + + | BASIC METABOLIC | Routin | 12/29/2018 | | Results for this | | PANEL | e - AM | 5:55 AM | | procedure are in the | | | | PDT | | results section. | + +--------+ + + + | CBC W/AUTO DIFF | Routin | 12/29/2018 | | Results for this | | (REFLEX TO MANUAL) | e - AM | 5:55 AM | | procedure are in the | | | | PDT | | results section. | + +--------+ + + + | NM MYOCARDIAL | Routin | 12/28/2018 | | Results for this | | PERFUSION SPECT - | e | 1:35 PM | | procedure are in the | | STRESS AND REST | | PDT | | results section. | + +--------+ + + + | NM CARDIOVASCULAR | Routin | 12/28/2018 | | Results for this | | STRESS TREADMILL | e | 12:54 PM | | procedure are in the | | | | PDT | | results section. | + +--------+ + + + | MAGNESIUM | Routin | 12/28/2018 | | Results for this | | | e - AM | 5:18 AM | | procedure are in the | | | | PDT | | results section. | + +--------+ + + + | BASIC METABOLIC | Routin | 12/28/2018 | | Results for this | | PANEL | e - AM | 5:18 AM | | procedure are in the | | | | PDT | | results section. | + +--------+ + + + | CBC W/AUTO DIFF | Routin | 12/28/2018 | | Results for this | | (REFLEX TO MANUAL) | e - AM | 5:18 AM | | procedure are in the | | | | PDT | | results section. | + +--------+ + + + | RETICULOCYTES | EVERARDO | 12/27/2018 | | Results for this | | | | 4:43 PM | | procedure are in the | | | | PDT | | results section. | + +--------+ + + + | ECHO CARDIAC ADULT | Routin | 12/27/2018 | | Results for this | | COMPLETE | e | 9:01 AM | | procedure are in the | | | | PDT | | results section. | + +--------+ + + + | TROPONIN I | Timed | 12/27/2018 | | Results for this | | | | 7:51 AM | | procedure are in the | | | | PDT | | results section. | + +--------+ + + + | BRAIN NATRIURETIC | Add-On | 12/27/2018 | | Results for this | | PEPTIDE | | 5:31 AM | | procedure are in the | | | | PDT | | results section. | + +--------+ + + + | IRON AND TIBC | Add-On | 12/27/2018 | | Results for this | | | | 5:17 AM | | procedure are in the | | | | PDT | | results section. | + +--------+ + + + | FERRITIN | Add-On | 12/27/2018 | | Results for this | | | | 5:17 AM | | procedure are in the | | | | PDT | | results section. | + +--------+ + + + | TROPONIN I | Timed | 12/27/2018 | | Results for this | | | | 5:17 AM | | procedure are in the | | | | PDT | | results section. | + +--------+ + + + | HEMOGLOBIN A1C | Routin | 12/27/2018 | | Results for this | | | e - AM | 5:17 AM | | procedure are in the | | | | PDT | | results section. | + +--------+ + + + | TSH | Routin | 12/27/2018 | | Results for this | | | e - AM | 5:17 AM | | procedure are in the | | | | PDT | | results section. | + +--------+ + + + | LIPID PANEL | Routin | 12/27/2018 | | Results for this | | | e - AM | 5:17 AM | | procedure are in the | | | | PDT | | results section. | + +--------+ + + + | COMPREHENSIVE | Routin | 12/27/2018 | | Results for this | | METABOLIC PANEL | e - AM | 5:17 AM | | procedure are in the | | | | PDT | | results section. | + +--------+ + + + | PHOSPHOROUS | Routin | 12/27/2018 | | Results for this | | | e - AM | 5:17 AM | | procedure are in the | | | | PDT | | results section. | + +--------+ + + + | MAGNESIUM | Routin | 12/27/2018 | | Results for this | | | e - AM | 5:17 AM | | procedure are in the | | | | PDT | | results section. | + +--------+ + + + | CBC W/AUTO DIFF | Routin | 12/27/2018 | | Results for this | | (REFLEX TO MANUAL) | e - AM | 5:17 AM | | procedure are in the | | | | PDT | | results section. | + +--------+ + + + | EKG STANDARD 12 LEAD | Routin | 12/27/2018 | | Results for this | | | e | 3:39 AM | | procedure are in the | | | | PDT | | results section. | + +--------+ + + + | XR CHEST 2 VIEW | Routin | 12/26/2018 | Chest pain, | Results for this | | FRONTAL AND LATERAL | e | 10:56 PM | unspecified type | procedure are in the | | | | PST | | results section. | + +--------+ + + + | RENAL FUNCTION PANEL | Routin | 11/20/2018 | | Results for this | | | e | 1:10 PM | | procedure are in the | | | | PST | | results section. | + +--------+ + + + | MAGNESIUM | Routin | 11/20/2018 | | Results for this | | | e | 1:10 PM | | procedure are in the | | | | PST | | results section. | + +--------+ + + + | CBC W/MANUAL DIFF | Routin | 11/20/2018 | | Results for this | | | e | 1:10 PM | | procedure are in the | | | | PST | | results section. | + +--------+ + + + | PTH INTACT NO | Routin | 11/20/2018 | | Results for this | | CALCIUM | e | 1:10 PM | | procedure are in the | | | | PST | | results section. | + +--------+ + + + | PROTEIN / CREATININE | Routin | 11/20/2018 | | Results for this | | RATIO, URINE | e | 1:10 PM | | procedure are in the | | | | PST | | results section. | + +--------+ + + + | PACEART DEVICE CHECK | Routin | 11/10/2018 | | Results for this | | IN OFFICE | e | 8:00 AM | | procedure are in the | | | | PST | | results section. | + +--------+ + + + | PROTEIN / CREATININE | Routin | 10/24/2018 | | Results for this | | RATIO, URINE | e | 12:00 AM | | procedure are in the | | | | PST | | results section. | + +--------+ + + + | URINE MICROSCOPIC | Routin | 10/24/2018 | | Results for this | | ONLY | e | 12:00 AM | [...] | RENAL FUNCTION PANEL | Routin | 10/23/2018 | CKD (chronic | Results for this | | | e | 9:05 AM | kidney disease) | procedure are in the | | | | PST | stage 3, GFR 30-59 | results section. | | | | | ml/min (HCC) | | | | | | Hypokalemia | | | | | | Bilateral lower | | | | | | extremity edema | | | | | | Essential | | | | | | hypertension, benign | | | | | | Hypervolemia, | | | | | | unspecified | | | | | | hypervolemia type | | | | | | Secondary | | | | | | hyperparathyroidism | | | | | | (HCC) | | + +--------+ + + + | CBC W/AUTO DIFF | Routin | 10/23/2018 | CKD (chronic | Results for this | | (REFLEX TO MANUAL) | e | 9:05 AM | kidney disease) | procedure are in the | | | | PST | stage 3, GFR 30-59 | results section. | | | | | ml/min (HCC) | | | | | | Hypokalemia | | | | | | Bilateral lower | | | | | | extremity edema | | | | | | Essential | | | | | | hypertension, benign | | | | | | Hypervolemia, | | | | | | unspecified | | | | | | hypervolemia type | | | | | | Secondary | | | | | | hyperparathyroidism | | | | | | (HCC) | | + +--------+ + + + | PTH INTACT NO | Routin | 10/23/2018 | CKD (chronic | Results for this | | CALCIUM | e | 9:05 AM | kidney disease) | procedure are in the | | | | PST | stage 3, GFR 30-59 | results section. | | | | | ml/min (HCC) | | | | | | Hypokalemia | | | | | | Bilateral lower | | | | | | extremity edema | | | | | | Essential | | | | | | hypertension, benign | | | | | | Hypervolemia, | | | | | | unspecified | | | | | | hypervolemia type | | | | | | Secondary | | | | | | hyperparathyroidism | | | | | | (HCC) | | + +--------+ + + + from Last 3 Months Results Renal function panel (01/08/2019 6:14 AM)Only the most recent of 12 results within the is included. + + + + + | Component | Value | Ref Range | Performed At | + + + + + | SODIUM | 140 | 135 - 145 mmol/L | [facility] | | | | | LAB[facility] | + + + + + | POTASSIUM | 3.8 | 3.5 - 4.9 mmol/L | [facility] | | | | | [facility] | + + + + + | CHLORIDE | 99 | 99 - 109 mmol/L | [facility] | | | | | [facility] | + + + + + | CO2 | 32 | 23 - 32 mmol/L | [facility] | | | | | [facility] | + + + + + | ANION GAP AGAP | 13 | 5 - 20 mmol/L | [facility] | | | | | [facility] | + + + + + | GLUCOSE | 105 (H) | 65 - 99 mg/dL | [facility] | | | | | [facility] | + + + + + | BUN | 94 (H) | 8 - 25 mg/dL | [facility] | | | | | [facility] | + + + + + | CREATININE | 2.6 (H) | 0.70 - 1.30 mg/dL | [facility] | | | | | [facility] | + + + + + | CALCIUM | 10.0 | 8.5 - 10.5 mg/dL | [facility] | | | | | [facility] | + + + + + | Albumin | 3.0 (L) | 3.3 - 4.8 g/dL | [facility] | | | | | [facility] | + + + + + | PHOSPHORUS | 3.6 | 2.3 - 4.8 mg/dL | [facility] | | | | | [facility] | + + + + + | EGFR | 24 (L)Comment: GFR <60: | >60 mL/min/1.73m2 | [facility] | | | CHRONIC KIDNEY DISEASE, | | LABORATORY | | | IF FOUND OVER A 3 MONTH | | | | | PERIOD.GFR <15: KIDNEY | | | | | FAILURE.FOR | | | | | AMERICANS, MULTIPLY THE | | | | | CALCULATED GFR BY | | | | | 1.210.This eGFR is | | | | | calculated using the | | | | | MDRD IDMS traceable | | | | | equation.Testing | | | | | performed at [facility], [address] | | | | [facility], | | | | | [place] [address] | | | + + + + + + + | Specimen | + + | Blood | + + + + + + + | Performing | Address | City/State/Zipcode | Phone Number | | Organization | | | | + + + + + | [facility] | [address] | [place] [address] | [phone] | | LABORATORY | [address] | | | + + + + + CBC W/Auto Diff (Reflex to Manual) (01/05/2019 6:12 AM)Only the most recent of 11 results within the time period is included. + + + + + | Component | Value | Ref Range | Performed At | + + + + + | WBC | 8.75 | 3.80 - 11.00 K/uL | [facility] | | | | | LAB[facility]AT[facility] | + + + + + | RBC | 4.20 | 4.20 - 5.70 M/uL | [facility] | | | | | LAB[facility] | + + + + + | HGB | 12.3 (L) | 13.2 - 17.0 g/dL | [facility] | | | | | LAB[facility]ATORY | + + + + + | HCT | 38.0 (L) | 39.0 - 50.0 % | [facility] | | | | | LAB[facility]ATORY | + + + + + | MCV | 90.6 | 80.0 - 100.0 fl | [facility] | | | | | LAB[facility]AT[facility] | + + + + + | MCH | 29.4 | 27.0 - 34.0 pg | [facility] | | | | | LAB[facility] | + + + + + | MCHC | 32.4 | 32.0 - 35.5 g/dL | [facility] | | | | | LAB[facility]AT[facility] | + + + + + | RDW SD | 53.4 (H) | 37 - 53 fl | [facility] | | | | | LAB[facility]ATORY | + + + + + | PLT | 201 | 150 - 400 K/uL | [facility] | | | | | LAB[facility] | + + + + + | MPV | 9.6 | fl | [facility] | | | | | LAB[facility] | + + + + + | DIFF TYPE | AUTOMATED | | [facility] | | | | | LAB[facility] | + + + + + | NEUTROPHILS | 73.63 | % | [facility] | | | | | LAB[facility] | + + + + + | LYMPHOCYTES | 5.91 | % | [facility] | | | | | [facility] | + + + + + | MONOCYTES | 7.74 | % | [facility] | | | | | LAB[facility] | + + + + + | EOSINOPHILS | 12.04 | % | [facility] | | | | | LAB[facility] | + + + + + | BASOPHILS | 0.68 | % | [facility] | | | | | LAB[facility]ATORY | + + + + + | NEUTROPHILS ABS | 6.44 | 1.90 - 7.40 K/uL | [facility] | | | | | LAB[facility]ATORY | + + + + + | LYMPHOCYTES ABS | 0.52 (L) | 1.00 - 3.90 K/uL | [facility] | | | | | LABORATORY | + + + + + | MONOCYTES ABS | 0.68 | 0.00 - 0.80 K/uL | [facility] | | | | | LABORATORY | + + + + + | EOSINOPHILS ABS | 1.05 (H) | 0.00 - 0.50 K/uL | [facility] | | | | | LABORATORY | + + + + + | BASOPHILS ABS | 0.06Comment: Testing | 0.00 - 0.10 K/uL | [facility] | | | performed at [facility], [address] | | LABORATORY | | | [address], | | | | | [place] [address] | | | + + + + + + + | Specimen | + + | Blood | + + + + + + + | Performing | Address | City/State/Zipcode | Phone Number | | Organization | | | | + + + + + | [facility] | [address] | [place] [address] | [phone] | | LABORATORY | [address] | | | + + + + + Magnesium (01/05/2019 6:12 AM)Only the most recent of 11 results within the time period is included. + + + + + | Component | Value | Ref Range | Performed At | + + + + + | MAGNESIUM | 2.1Comment: Testing | 1.7 - 2.4 mg/dL | [facility] | | | performed at [facility], [address] | | LABORATORY | | | [facility], | | | | | [place] [address] | | | + + + + + + + | Specimen | + + | Blood | + + + + + + + | Performing | Address | City/State/Zipcode | Phone Number | | Organization | | | | + + + + + | [facility] | [address] | [place] [address] | [phone] | | LABORATORY | [address] | | | + + + + + PROCALCITONIN (12/31/2018 5:21 AM) + + + + + | Component | Value | Ref Range | Performed At | + + + + + | PROCALCITONIN | 0.16Comment: | <0.5 ng/mL | [facility] | | | INTERPRETIVE | | | | | INFORMATION: PROCALCI | | | | | TONIN PCT <= 0.5 | | | | | ng/mL: Low risk | | | | | for progression to | | | | | severe | | | | | systemic bacteria | | | | | l infection (severe | | | | | sepsis/septic | | | | | shock). Does not | | | | | exclude an infection, | | | | | because | | | | | localized infecti | | | | | ons may be associated | | | | | with such low | | | | | levels. If PCT is | | | | | measured very early | | | | | after | | | | | bacterial challen | | | | | ge (usually <6 hours), | | | | | results may still | | | | | be low and should | | | | | re-assess PCT 6-24 | | | | | hours later. PCT >0.5 | | | | | and <= 2 | | | | | ng/mL: Moderate | | | | | risk for progression to | | | | | severe | | | | | systemic infectio | | | | | n (severe sepsis/septic | | | | | shock). Other | | | | | conditions are known to | | | | | elevate PCT, patient | | | | | should be | | | | | closely monitored both | | | | | clinically and | | | | | by re-assessing | | | | | PCT within 6-24 hours. | | | | | PCT > 2 | | | | | ng/mL: High | | | | | likelihood for | | | | | progression to severe | | | | | systemic bacteria | | | | | l infection (severe | | | | | sepsis/septic shock). | | | | | PCT >= 10 | | | | | ng/mL: High | | | | | likelihood of severe | | | | | sepsis or septic | | | | | shock.Testing performed | | | | | at [facility];[address] [place] [address] | | | | | [facility];[place] [address] | | | + + + + + + + + + + | Performing | Address | City/State/Zipcode | Phone Number | | Organization | | | | + + + + + | [facility] | [address] | [place] [address] | | + + + + + US MARCIA resting (12/30/2018 12:31 PM) + + + | Impressions | Performed At | + + + | *ABIs and TBIs are within normal limits bilaterally. *Dampening of | [facility] | | the waveform of the left great toe. The left TBI could be | RADIOLOGY | | artifactually elevated. Ankle Brachial Indices Categorization of | | | Disease INDEX EXTENT OF DISEASE > | | | 1.0 Normal .90-.99 | | | Mild / Borderline .60-.89 Moderate | | | .50-.59 Severe < | | | .49 Severe Signed by: Jeffery Ramos | | | Sign Date/Time: 12/30/2018 12:43 PM | | + + + + + + | Narrative | Performed At | + + + | LOWER EXTREMITY ARTERIAL SCAN, ANKLE BRACHIAL INDEX CLINICAL | [facility] | | INFORMATION: Compression dressings, please eval to see if vessels | RADIOLOGY | | will support this----of note pt has dressings that will need ot be | | | removed prior to dopplers, wound care seeing please coordinate with | | | them or nursing on this----thanks COMPARISON: None PROCEDURE: | | | Using continuous wave Doppler, segmental pressure measurements in both | | | arms and both legs. FINDINGS: (measurements in millimeters of | | | mercury systolic) Right Arm: 108 Left Arm: 114 RIGHT Dorsalis | | | Pedis: 132 Posterior Tibial: 119 MARCIA: 1.04 Waveforms: Triphasic | | | Great toe: 126 TBI: 1.11 LEFT Dorsalis Pedis: 143 Posterior | | | Tibial: 130 MARCIA: 1.14 Waveforms: Triphasic Great toe: | | | 102. Dampening of the waveform of the left great toe. TBI: 0.89 | | + + + + + | Procedure Note | + + | Feliz, Rad Results In - 12/30/2018 12:47 PM PDT LOWER EXTREMITY ARTERIAL SCAN, ANKLE | | BRACHIAL INDEXCLINICAL INFORMATION:Compression dressings, please eval to see if vessels | | will supportthis----of note pt has dressings that will need ot be removed prior | | todopplers, wound care seeing please coordinate with them or nursing | | onthis----thanksCOMPARISON:NonePROCEDURE:Using continuous wave Doppler, segmental | | pressure measurements in botharms and both legs.FINDINGS:(measurements in millimeters of | | mercury systolic)Right Arm: 108Left Arm: 114RIGHTDorsalis Pedis: 132Posterior Tibial: | | 119ABI: 1.04Waveforms: TriphasicGreat toe: 126TBI: 1.11LEFTDorsalis Pedis: 143Posterior | | Tibial: 130ABI: 1.14Waveforms: TriphasicGreat toe: 102. Dampening of the waveform of | | the left great toe.TBI: 0.89IMPRESSION:*ABIs and TBIs are within normal limits | | bilaterally.*Dampening of the waveform of the left great toe. The left TBI couldbe | | artifactually elevated.Ankle Brachial IndicesCategorization of DiseaseINDEX | | EXTENT OF DISEASE> 1.0 Normal.90-.99 Mild / Borderline.60-.89 | | Moderate.50-.59 Severe< .49 SevereSigned by: Rachel | | Elijah Date/Time: 12/30/2018 12:43 PM | |RIGHT | |Dorsalis Pedis: 132 | |Posterior Tibial: 119 | |MARCIA: 1.04 | |Waveforms: Triphasic | |Great toe: 126 | |TBI: 1.11 | |LEFT | |Dorsalis Pedis: 143 | |Posterior Tibial: 130 | |MARCIA: 1.14 | |Waveforms: Triphasic | |Great toe: 102. Dampening of the waveform of the left great toe. | |TBI: 0.89 | |IMPRESSION: | |*ABIs and TBIs are within normal limits bilaterally. | |*Dampening of the waveform of the left great toe. The left TBI could | |be artifactually elevated. | |Ankle Brachial Indices | |Categorization of Disease | |INDEX EXTENT OF DISEASE | |> 1.0 Normal | |.90-.99 Mild / Borderline | |.60-.89 Moderate | |.50-.59 Severe | |< .49 Severe | |Signed by: Jeffery Ramos | |Sign Date/Time: 12/30/2018 12:43 PM | + + + + + + + | Performing | Address | City/State/Zipcode | Phone Number | | Organization | | | | + + + + + | [facility] | [address] | [place] [address] | | + + + + + Basic metabolic panel (12/29/2018 5:55 AM)Only the most recent of 2 results within the is included. + + + + + | Component | Value | Ref Range | Performed At | + + + + + | SODIUM | 140 | 135 - 145 mmol/L | [facility] | | | | | LABORATORY | + + + + + | POTASSIUM | 3.6 | 3.5 - 4.9 mmol/L | [facility] | | | | | LABORATORY | + + + + + | CHLORIDE | 98 (L) | 99 - 109 mmol/L | [facility] | | | | | LABORATORY | + + + + + | CO2 | 31 | 23 - 32 mmol/L | [facility] | | | | | LABORATORY | + + + + + | ANION GAP AGAP | 15 | 5 - 20 mmol/L | [facility] | | | | | LABORATORY | + + + + + | GLUCOSE | 91 | 65 - 99 mg/dL | [facility] | | | | | LABORATORY | + + + + + | BUN | 48 (H) | 8 - 25 mg/dL | [facility] | | | | | LABORATORY | + + + + + | CREATININE | 2.2 (H) | 0.70 - 1.30 mg/dL | [facility] | | | | | LABORATORY | + + + + + | BUN/CREAT | 22 | | [facility] | | | | | LABORATORY | + + + + + | CALCIUM | 9.4 | 8.5 - 10.5 mg/dL | [facility] | | | | | LABORATORY | + + + + + | EGFR | 29 (L)Comment: GFR <60: | >60 mL/min/1.73m2 | [facility] | | | CHRONIC KIDNEY DISEASE, | | LABORATORY | | | IF FOUND OVER A 3 MONTH | | | | | PERIOD.GFR <15: KIDNEY | | | | | FAILURE.FOR | | | | | AMERICANS, MULTIPLY THE | | | | | CALCULATED GFR BY | | | | | 1.210.This eGFR is | | | | | calculated using the | | | | | MDRD IDGA traceable | | | | | equation.Testing | | | | | performed at [facility], [address] | | | | [facility], | | | | | [place] [address] | | | + + + + + + + | Specimen | + + | Blood | + + + + + + + | Performing | Address | City/State/Zipcode | Phone Number | | Organization | | | | + + + + + | [facility] | [address] | [place] [address] | [phone] | | LABORATORY | [address] | | | + + + + + NM Myocardial Perfusion SPECT (Stress and Rest) (12/28/2018 1:35 PM) + + + | Impressions | Performed At | + + + | 1. Mild heterogeneity of uptake on both rest and stress images | [facility] | | probably related to patient body habitus/artifact. No definite | RADIOLOGY | | evidence of ischemia or infarct. See above. 2. Normal LV wall | | | motion. 3. LVEF 49% rest, 62% stress. Low risk stratification. | | | Signed by: Keyon Gray Date/Time: 12/28/2018 1:56 PM | | + + + + + + | Narrative | Performed At | + + + | REST/STRESS MYOCARDIAL PERFUSION STUDY PROTOCOL: STANDARD BRITT | [facility] | | EXERCISE. CLINICAL INFORMATION: Dyspnea, elevated troponin, | RADIOLOGY | | cardiomyopathy, kidney disease, congestive heart failure. | | | COMPARISON: ECHO CARDIAC ADULT COMPLETE (12/27/2018); XR CHEST 2 VIEW | | | FRONTAL AND LATERAL (12/26/2018); PROCEDURE: Treadmill stress testing | | | was performed and reported separately, followed by the standard | | | department protocol for the SPECT myocardial perfusion examination. | | | RADIOPHARMACEUTICALS: Twenty-four mCi technetium 99m {sestamibi} IV | | | for stress imaging, and 10.8 mCi technetium 99m sestamibi IV for rest | | | imaging. FINDINGS: Myocardial Perfusion SPECT Images: | | | Heterogeneity of uptake in the left ventricle, with subtle thinning of | | | the proximal left ventricular wall anterior, lateral, and inferior | | | on both rest and stress images. This is probably related to | | | patient body habitus. No defined evidence of infarct. There is | | | slight increased thinning of the proximal inferior wall on stress | | | images, probably related to diaphragmatic artifact. Minimal | | | increased thinning of the proximal lateral wall with stress, also | | | likely artifactual. I doubt ischemia. Gated Study: Rest LVEF 49%. | | | Stress LVEF 62%. Volumes: Rest EDV 132 mL. Rest ESV 67 mL. | | | Stress EDV 131 mL. Stress ESV 50 mL. Wall Motion: LV wall motion is | | | normal at rest and with stress. | | + + + + + | Procedure Note | + + | Feliz, Rad Results In - 12/28/2018 1:59 PM PDT REST/STRESS MYOCARDIAL PERFUSION STUDY | | PROTOCOL: | | STANDARD BRITT EXERCISE. | | CLINICAL INFORMATION: | | Dyspnea, elevated troponin, cardiomyopathy, kidney disease, congestive | | heart failure. | | COMPARISON: | | ECHO CARDIAC ADULT COMPLETE (12/27/2018); XR CHEST 2 VIEW FRONTAL AND | | LATERAL (12/26/2018); | | PROCEDURE: | | Treadmill stress testing was performed and reported separately, | | followed by the standard department protocol for the SPECT myocardial | | perfusion examination. | | RADIOPHARMACEUTICALS: | | Twenty-four mCi technetium 99m {sestamibi} IV for stress imaging, and | | 10.8 mCi technetium 99m sestamibi IV for rest imaging. | | FINDINGS: | | Myocardial Perfusion SPECT Images: | | Heterogeneity of uptake in the left ventricle, with subtle thinning of | | the proximal left ventricular wall anterior, lateral, and inferior on | | both rest and stress images. This is probably related to patient body | | habitus. No defined evidence of infarct. | | There is slight increased thinning of the proximal inferior wall on | | stress images, probably related to diaphragmatic artifact. Minimal | | increased thinning of the proximal lateral wall with stress, also | | likely artifactual. I doubt ischemia. | | Gated Study: | | Rest LVEF 49%. | | Stress LVEF 62%. | | Volumes: | | Rest EDV 132 mL. | | Rest ESV 67 mL. | | Stress EDV 131 mL. | | Stress ESV 50 mL. | | Wall Motion: | | LV wall motion is normal at rest and with stress. | | IMPRESSION: | | 1. Mild heterogeneity of uptake on both rest and stress images probably | | related to patient body habitus/artifact. No definite evidence of | | ischemia or infarct. See above. | | 2. Normal LV wall motion. | | 3. LVEF 49% rest, 62% stress. | | Low risk stratification. | | Signed by: Keyon Gray | | Sign Date/Time: 12/28/2018 1:56 PM | + + + + + + + | Performing | Address | City/State/Zipcode | Phone Number | | Organization | | | | + + + + + | [facility] | [address] | [place] [address] | | + + + + + NM cardiovascular stress treadmill (12/28/2018 12:54 PM) + + + + + | Component | Value | Ref Range | Performed At | + + + + + | Diagnosis | Non diagnostic | | [facility] EKG | | | pharmacological EKG | | | | | stress test for | | | | | ischemia.Confirmed by | | | | | Junaid Posada MD | | | | | ([id number]) on 12/30/2018 | | | | | 6:41:22 AM | | | + + + + + + + + + + | Performing | Address | City/State/Zipcode | Phone Number | | Organization | | | | + + + + + | [facility] | [address] | [place] [address] | | + + + + + Reticulocyte count (12/27/2018 4:43 PM) + + + + + | Component | Value | Ref Range | Performed At | + + + + + | RETICULOCYTES | 1.4Comment: Testing | 0.4 - 2.7 % | [facility] | | | performed at [facility] [place];[address] | | | [address];[place] | | | | | [address] | | | + + + + + + + + + + | Performing | Address | City/State/Zipcode | Phone Number | | Organization | | | | + + + + + | [facility] | [address] | [place] [address] | | + + + + + Echo cardiac adult complete (12/27/2018 9:01 AM) + +-------+ + + | Component | Value | Ref Range | Performed At | + +-------+ + + | LV EF | 65 | 50 - 70 % | [facility] | | | | | RADIOLOGY | + +-------+ + + + + + | Impressions | Performed At | + + + | 1. This was a technically difficult study with suboptimal views. 2. | [facility] | | Adequate EF 3. Severe bi-atrial enlargement. | RADIOLOGY | + + + + + + | Narrative | Performed At | + + + | Patient Name: Michael Joshi Date of : 1940 | [facility] | | Performing Physician: [facility] | | [place] | | | | | | ------REPORT ADDENDED------ INDICATIONS acute HI | | | CONCLUSIONS 1. This was a technically difficult study | | | with suboptimal views. 2. Adequate EF 3. Severe bi-atrial enlargement. | | | FINDINGS -------- ECG rhythm: Undetermined rhythm. Study: A | | | 2-dimensional transthoracic echocardiogram with m-mode, spectral and | | | color flow Doppler was perfomed. Study: This was a technically | | | difficult study with suboptimal views. Left Ventricle: Overall left | | | ventricular systolic function is normal with, an EF between 60 - 65 %. | | | Left Ventricle: The left ventricle cavity size is normal. Left | | | Ventricle: There is mild concentric left ventricular hypertrophy. | | | Left Ventricle: Cannot assess diastolic function due to arrhythmia. | | | Right Ventricle: The right ventricle is severely enlarged measuring | | | >4.1 cm. Right Ventricle: The right ventricular systolic function is | | | mildly impaired. Right Ventricle: Pacer/ICD wire seen. Left | | | Atrium: The left atrium is markedly dilated. Right Atrium: The right | | | atrium is markedly enlarged. Right Atrium: Pacemaker wire seen in | | | the right atrial cavity. Aortic Valve: The aortic valve is | | | trileaflet. Aortic Valve: There is moderate aortic valve sclerosis | | | without stenosis. Aortic Valve: The aortic valve is mildly | | | calcified. Aortic Valve: There is qruc-gz-[id number] aortic | | | regurgitation. Mitral Valve: Mild mitral regurgitation is present. | | | Mitral Valve: Mild mitral annular calcification present. Tricuspid | | | Valve: The tricuspid valve was not well visualized. Tricuspid Valve: | | | The right ventricular systolic pressure (pulmonary artery systolic | | | pressure), as measured by Doppler, is 49+15=64 mmHg. Pericardium: | | | There is no pericardial effusion. IVC/Hepatic Veins: The IVC is | | | dilated (>2.5cm) and collapses <50% with sniff, consistent with | | | central venous pressures of 15mmHg. Aorta: The aortic root and | | | ascending aorta are dilated measuring up to 4.4 cm. Mass: No mass | | | visualized Thrombus: No clot visualized MEASUREMENTS | | | RA Area: 63.69 cm2 Ao asc: 4.41 cm Ao | | | sinus: 4.17 cm IVC: 3.28 cm EDV(Teich): 163.48 ml | | | IVSd: 1.29 cm LVIDd: 5.75 cm LVPWd: 1.32 cm LVOT | | | Diam: 2.52 cm %FS: 45.13 % EF(Teich): 75.77 % | | | ESV(Teich): 39.61 ml IVSs: 1.83 cm LVIDs: 3.15 cm | | | LVPWs: 2.19 cm SV(Teich): 123.87 ml RA Major: 9.45 cm | | | RVIDd: 5.18 cm LVEF MOD A2C: 56.80 % SV MOD A2C: 108.86 | | | ml LVEDV MOD A2C: 191.64 ml LVLd A2C: 8.80 cm LVESV MOD | | | A2C: 82.78 ml LVLs A2C: 7.83 cm LAESV(A-L): 249.36 ml | | | LAESV Index (A-L): 109.85 ml/m2 LAAs A2C: 64.13 cm2 LAESV | | | A-L A2C: 351.26 ml LALs A2C: 9.93 cm LAAs A4C: 45.52 cm2 | | | LAESV A-L A4C: 173.98 ml LALs A4C: 10.11 cm TAPSE: | | | 1.10 cm HR: 80.22 BPM AV maxP.70 mmHg AV meanPG: | | | 5.31 mmHg AV Vmax: 1.55 m/s AV Vmean: 1.10 m/s AV VTI: | | | 33.13 cm ARIANNA Vmax: 2.73 cm2 ARIANNA (VTI): 2.82 cm2 AVAI | | | Vmax: 0.00 cm2/m2 AVAI (VTI): 0.00 cm2/m2 LVCI Dopp: | | | 2.84 l/minm2 LVCO Dopp: 6.45 l/min HR: 68.91 BPM LVOT | | | maxP.89 mmHg LVOT meanP.48 mmHg LVSI Dopp: 41.23 | | | ml/m2 LVSV Dopp: 93.59 ml LVOT Vmax: 0.85 m/s LVOT | | | Vmean: 0.58 m/s LVOT VTI: 18.72 cm Septal e': 0.08 m/s | | | Lateral e': 0.09 m/s HR: 59.71 BPM PV maxP.15 mmHg | | | PV meanP.55 mmHg PV Vmax: 0.53 m/s PV Vmean: 0.34 | | | m/s PV VTI: 10.42 cm RV S': 0.06 m/s TR maxP.74 | | | mmHg TR Vmax: 3.49 m/s Umbrella Tipper: ROSY Authenticated by: | | | Pedrito Taylor MD Report Date/Time: 12-27-2018 13:58:10 | | + + + + + | Procedure Note | + + | Feliz, Rad Results In - 12/27/2018 1:58 PM PDT Patient Name: Kel Joshi of | | : 1940Accession: [id number] Physician: Pedrito Taylor | | ------REPORT | | ADDENDED------INDICATIONS acute MICONCLUSIONS 1. This was a | | technically difficult study with suboptimal views. 2. Adequate EF 3. Severe bi-atrial | | enlargement.FINDINGS--------ECG rhythm: Undetermined rhythm.Study: A 2-dimensional | | transthoracic echocardiogram with m-mode, spectral and color flow Doppler was perfomed. | | Study: This was a technically difficult study with suboptimal views.Left Ventricle: | | Overall left ventricular systolic function is normal with, an EF between 60 - 65 %. Left | | Ventricle: The left ventricle cavity size is normal. Left Ventricle: There is mild | | concentric left ventricular hypertrophy. Left Ventricle: Cannot assess diastolic | | function due to arrhythmia.Right Ventricle: The right ventricle is severely enlarged | | measuring >4.1 cm. Right Ventricle: The right ventricular systolic function is mildly | | impaired. Right Ventricle: Pacer/ICD wire seen.Left Atrium: The left atrium is markedly | | dilated.Right Atrium: The right atrium is markedly enlarged. Right Atrium: Pacemaker | | wire seen in the right atrial cavity.Aortic Valve: The aortic valve is trileaflet. | | Aortic Valve: There is moderate aortic valve sclerosis without stenosis. Aortic Valve: | | The aortic valve is mildly calcified. Aortic Valve: There is qwnm-ad-mutbrpoc aortic | | regurgitation.Mitral Valve: Mild mitral regurgitation is present. Mitral Valve: Mild | | mitral annular calcification present.Tricuspid Valve: The tricuspid valve was not well | | visualized. Tricuspid Valve: The right ventricular systolic pressure (pulmonary artery | | systolic pressure), as measured by Doppler, is 49+15=64 mmHg.Pericardium: There is no | | pericardial effusion.IVC/Hepatic Veins: The IVC is dilated (>2.5cm) and collapses <50% | | with sniff, consistent with central venous pressures of 15mmHg.Aorta: The aortic root | | and ascending aorta are dilated measuring up to 4.4 cm.Mass: No mass visualizedThrombus: | | No clot visualizedMEASUREMENTS RA Area: 63.69 cm2Ao asc: 4.41 cmAo | | sinus: 4.17 cmIVC: 3.28 cmEDV(Teich): 163.48 mlIVSd: 1.29 cmLVIDd: 5.75 | | cmLVPWd: 1.32 cmLVOT Diam: 2.52 cm%FS: 45.13 %EF(Teich): 75.77 %ESV(Teich): | | 39.61 mlIVSs: 1.83 cmLVIDs: 3.15 cmLVPWs: 2.19 cmSV(Teich): 123.87 mlRA Major: | | 9.45 cmRVIDd: 5.18 cmLVEF MOD A2C: 56.80 %SV MOD A2C: 108.86 mlLVEDV MOD A2C: | | 191.64 mlLVLd A2C: 8.80 cmLVESV MOD A2C: 82.78 mlLVLs A2C: 7.83 cmLAESV(A-L): | | 249.36 mlLAESV Index (A-L): 109.85 ml/m2LAAs A2C: 64.13 eh3HOCII A-L A2C: 351.26 | | mlLALs A2C: 9.93 cmLAAs A4C: 45.52 [id number] A-L A4C: 173.98 mlLALs A4C: 10.11 | | cmTAPSE: 1.10 cmHR: 80.22 BPMAV maxP.70 mmHgAV meanP.31 mmHgAV Vmax: | | 1.55 m/Davie Vmean: 1.10 m/Davie VTI: 33.13 cmAVA Vmax: 2.73 cm2AVA (VTI): 2.82 | | nt2AEOC Vmax: 0.00 cm2/m2AVAI (VTI): 0.00 cm2/m2LVCI Dopp: 2.84 l/qwsr6QHYS Dopp: | | 6.45 l/minHR: 68.91 BPMLVOT maxP.89 mmHgLVOT meanP.48 mmHgLVSI Dopp: | | 41.23 ml/m2LVSV Dopp: 93.59 mlLVOT Vmax: 0.85 m/sLVOT Vmean: 0.58 m/sLVOT VTI: | | 18.72 cmSeptal e': 0.08 m/sLateral e': 0.09 m/sHR: 59.71 BPMPV maxP.15 | | mmHgPV meanP.55 mmHgPV Vmax: 0.53 m/sPV Vmean: 0.34 m/sPV VTI: 10.42 cmRV | | S': 0.06 m/sTR maxP.74 mmHgTR Vmax: 3.49 m/sSonographer: MWAuthenticated by: | | Pedrito Taylor MDReport Date/Time: 12-27-2018 13:58:10IMPRESSION:1. This was a | | technically difficult study with suboptimal views. 2. Adequate EF 3. Severe bi-atrial | | enlargement. | |Mass: No mass visualized | |Thrombus: No clot visualized | | | |MEASUREMENTS | | | |RA Area: 63.69 cm2 | |Ao asc: 4.41 cm | |Ao sinus: 4.17 cm | |IVC: 3.28 cm | |EDV(Teich): 163.48 ml | |IVSd: 1.29 cm | |LVIDd: 5.75 cm | |LVPWd: 1.32 cm | |LVOT Diam: 2.52 cm | |%FS: 45.13 % | |EF(Teich): 75.77 % | |ESV(Teich): 39.61 ml | |IVSs: 1.83 cm | |LVIDs: 3.15 cm | |LVPWs: 2.19 cm | |SV(Teich): 123.87 ml | |RA Major: 9.45 cm | |RVIDd: 5.18 cm | |LVEF MOD A2C: 56.80 % | |SV MOD A2C: 108.86 ml | |LVEDV MOD A2C: 191.64 ml | |LVLd A2C: 8.80 cm | |LVESV MOD A2C: 82.78 ml | |LVLs A2C: 7.83 cm | |LAESV(A-L): 249.36 ml | |LAESV Index (A-L): 109.85 ml/m2 | |LAAs A2C: 64.13 cm2 | |LAESV A-L A2C: 351.26 ml | |LALs A2C: 9.93 cm | |LAAs A4C: 45.52 cm2 | |LAESV A-L A4C: 173.98 ml | |LALs A4C: 10.11 cm | |TAPSE: 1.10 cm | |HR: 80.22 BPM | |AV maxP.70 mmHg | |AV meanP.31 mmHg | |AV Vmax: 1.55 m/s | |AV Vmean: 1.10 m/s | |AV VTI: 33.13 cm | |ARIANNA Vmax: 2.73 cm2 | |ARIANNA (VTI): 2.82 cm2 | |AVAI Vmax: 0.00 cm2/m2 | |AVAI (VTI): 0.00 cm2/m2 | |LVCI Dopp: 2.84 l/minm2 | |LVCO Dopp: 6.45 l/min | |HR: 68.91 BPM | |LVOT maxP.89 mmHg | |LVOT meanP.48 mmHg | |LVSI Dopp: 41.23 ml/m2 | |LVSV Dopp: 93.59 ml | |LVOT Vmax: 0.85 m/s | |LVOT Vmean: 0.58 m/s | |LVOT VTI: 18.72 cm | |Septal e': 0.08 m/s | |Lateral e': 0.09 m/s | |HR: 59.71 BPM | |PV maxP.15 mmHg | |PV meanP.55 mmHg | |PV Vmax: 0.53 m/s | |PV Vmean: 0.34 m/s | |PV VTI: 10.42 cm | |RV S': 0.06 m/s | |TR maxP.74 mmHg | |TR Vmax: 3.49 m/s | | | |Umbrella Tipper: MW | |Authenticated by: Pedrito Taylor MD | |Report Date/Time: 12-27-2018 13:58:10 | | | |IMPRESSION: | |1. This was a technically difficult study with suboptimal views. 2. Adequate EF 3. Severe b i-atrial enlargement. | + + + + + + + | Performing | Address | City/State/Zipcode | Phone Number | | Organization | | | | + + + + + | [facility] | [address] | [place] [address] | | + + + + + Troponin I (12/27/2018 7:51 AM)Only the most recent of 2 results within the time period is included. + + + + + | Component | Value | Ref Range | Performed At | + + + + + | TROPONIN I | 0.046 (H)Comment: 0.04 | 0.00 - 0.04 ng/mL | [facility] | | | ng/mL or | | | | | less Nega | | | | | tive, repeat testing in | | | | | four to six hour if | | | | | clinically indicted0.05 | | | | | to 0.77 | | | | | ng/mL Alejandrina | | | | | picious for myocardial | | | | | injury. Serial | | | | | measurements may be | | | | | necessary to confirm or | | | | | exclude the diagnosis of | | | | | acute coronary | | | | | syndrome. Repeat testing | | | | | in four to six hours if | | | | | indicated.0.78 or | | | | | greater | | | | | ng/mL Consistent | | | | | with myocardial injury. | | | | | Clinical and laboratory | | | | | correlation recommended. | | | | | NOTE NEW REFERENCE | | | | | RANGETesting performed | | | | | at [facility];[address] | | | | | [place] [address] | | | + + + + + + + | Specimen | + + | Blood | + + + + + + + | Performing | Address | City/State/Zipcode | Phone Number | | Organization | | | | + + + + + | [facility] | [address] | [place] [address] | | + + + + + Brain natriuretic peptide (12/27/2018 5:31 AM) + + + + + | Component | Value | Ref Range | Performed At | + + + + + | BRAIN NATRIURETIC | 471.32 (H)Comment: | 0 - 100 pg/mL | [facility] | | PEPTIDE | Testing performed at | | | | | [facility];[address] | | | | | [place] [address] | | | + + + + + + + | Specimen | + + | Blood | + + + + + + + | Performing | Address | City/State/Zipcode | Phone Number | | Organization | | | | + + + + + | [facility] | [address] | [place] [address] | | + + + + + Iron panel (12/27/2018 5:17 AM) + + + + + | Component | Value | Ref Range | Performed At | + + + + + | IRON | 34 (L) | 45 - 190 ug/dL | [facility] | | | | | [facility] | + + + + + | TIBC | 287 | 250 - 450 ug/dL | [facility] | | | | | LAB[facility]ATORY | + + + + + | IRON % SAT | 12 (L)Comment: Testing | 20 - 50 % | [facility] | | | performed at [facility], [address] | | LABORATORY | | | [address], | | | | | [place] [address] | | | + + + + + + + | Specimen | + + | Blood | + + + + + + + | Performing | Address | City/State/Zipcode | Phone Number | | Organization | | | | + + + + + | [facility] | [address] | [place] [address] | [phone] | | LABORATORY | [address] | | | + + + + + TSH (12/27/2018 5:17 AM) + + + + + | Component | Value | Ref Range | Performed At | + + + + + | TSH | 1.500Comment: Testing | 0.450 - 5.100 uIU/mL | [facility] | | | performed at [facility], [address] | | LABORATORY | | | [address], | | | | | [place] [address] | | | + + + + + + + | Specimen | + + | Blood | + + + + + + + | Performing | Address | City/State/Zipcode | Phone Number | | Organization | | | | + + + + + | [facility] | [address] | [place] [address] | [phone] | | LABORATORY | [address] | | | + + + + + Phosphorus (12/27/2018 5:17 AM) + + + + + | Component | Value | Ref Range | Performed At | + + + + + | PHOSPHORUS | 3.2Comment: Testing | 2.3 - 4.8 mg/dL | [facility] | | | performed at [facility], [address] | | LABORATORY | | | [address], | | | | | [place] [address] | | | + + + + + + + | Specimen | + + | Blood | + + + + + + + | Performing | Address | City/State/Zipcode | Phone Number | | Organization | | | | + + + + + | [facility] | [address] | [place] [address] | [phone] | | LABORATORY | [address] | | | + + + + + Glycohemoglobin A1c (12/27/2018 5:17 AM) + + + + + | Component | Value | Ref Range | Performed At | + + + + + | HEMOGLOBIN A1C | 5.5Comment: HbA1c method | 4.0 - 6.0 % | [facility] | | | is certified by [employer] | | LABORATORY | | | and traceable to the | | | | | DCCT reference | | | | | method.ADA guidelines | | | | | indicate: | | | | | Prediabetes: 5.7 - | | | | | 6.4 Diabetes: | | | | | >6.4 Glycemic | | | | | control for adults with | | | | | diabetes: <7.0Effective | | | | | 11/04/2018: Note New | | | | | Method | | | + + + + + | ESTIMATED AVG | 111Comment: Estimated | <154 mg/dL | [facility] | | GLUCOSE | Average Glucose | | LABORATORY | | | calculated from | | | | | hemoglobin A1c by use of | | | | | the ADA recommended | | | | | formula.Testing | | | | | performed at [facility], [address] | | | | | [facility], | | | | | [place] [address] | | | + + + + + + + | Specimen | + + | Blood | + + + + + + + | Performing | Address | City/State/Zipcode | Phone Number | | Organization | | | | + + + + + | [facility] | [address] | [place] [address] | [phone] | | LABORATORY | [address] | | | + + + + + Ferritin (12/27/2018 5:17 AM) + + + + + | Component | Value | Ref Range | Performed At | + + + + + | FERRITIN | 33Comment: Testing | 11 - 450 ng/mL | [facility] | | | performed at [facility], [address] | | LABORATORY | | | [facility] [place], | | | | | [place] [address] | | | + + + + + + + | Specimen | + + | Blood | + + + + + + + | Performing | Address | City/State/Zipcode | Phone Number | | Organization | | | | + + + + + | [facility] | [address] | [place] [address] | [phone] | | LABORATORY | [address] | | | + + + + + Lipid panel (12/27/2018 5:17 AM) + + + + + | Component | Value | Ref Range | Performed At | + + + + + | CHOLESTEROL | 108 | <200 mg/dL | [facility] | | | | | LABORATORY | + + + + + | Triglycerides | 67 | <150 mg/dL | [facility] | | | | | LABORATORY | + + + + + | HDL CHOL | 39 (L) | >40 mg/dL | [facility] | | | | | LABORATORY | + + + + + | LDL CALC | 56Comment: Testing | <100 mg/dL | [facility] | | | performed at [facility], [address] | | LABORATORY | | | [address], | | | | | [place] [address] | | | + + + + + + + | Specimen | + + | Blood | + + + + + + + | Performing | Address | City/State/Zipcode | Phone Number | | Organization | | | | + + + + + | [facility] | [address] | [place] [address] | [phone] | | LABORATORY | [address] | | | + + + + + Comprehensive metabolic panel (12/27/2018 5:17 AM) + + + + + | Component | Value | Ref Range | Performed At | + + + + + | SODIUM | 142 | 135 - 145 mmol/L | [facility] | | | | | LABORATORY | + + + + + | POTASSIUM | 4.6 | 3.5 - 4.9 mmol/L | [facility] | | | | | LABORATORY | + + + + + | CHLORIDE | 110 (H) | 99 - 109 mmol/L | [facility] | | | | | LABORATORY | + + + + + | CO2 | 21 (L) | 23 - 32 mmol/L | [facility] | | | | | LABORATORY | + + + + + | ANION GAP AGAP | 16 | 5 - 20 mmol/L | [facility] | | | | | LABORATORY | + + + + + | GLUCOSE | 89 | 65 - 99 mg/dL | [facility] | | | | | LABORATORY | + + + + + | BUN | 44 (H) | 8 - 25 mg/dL | [facility] | | | | | LABORATORY | + + + + + | CREATININE | 1.9 (H) | 0.70 - 1.30 mg/dL | [facility] | | | | | LABORATORY | + + + + + | BUN/CREAT | 23 | | [facility] | | | | | LABORATORY | + + + + + | CALCIUM | 8.6 | 8.5 - 10.5 mg/dL | [facility] | | | | | LABORATORY | + + + + + | TOTAL PROTEIN | 6.4 | 6.3 - 8.2 g/dL | [facility] | | | | | LABORATORY | + + + + + | Albumin | 3.0 (L) | 3.3 - 4.8 g/dL | [facility] | | | | | LABORATORY | + + + + + | GLOBULIN | 3.4 | 1.3 - 4.9 g/dL | [facility] | | | | | LABORATORY | + + + + + | A/G | 0.9 (L) | 1.0 - 2.4 | [facility] | | | | | LABORATORY | + + + + + | TBIL | 0.5 | 0.1 - 1.5 mg/dL | [facility] | | | | | LABORATORY | + + + + + | ALK PHOS | 86 | 35 - 115 U/L | [facility] | | | | | LABORATORY | + + + + + | AST | 12 | 10 - 45 U/L | [facility] | | | | | LABORATORY | + + + + + | ALT | 14 | 10 - 65 U/L | [facility] | | | | | LABORATORY | + + + + + | EGFR | 34 (L)Comment: GFR <60: | >60 mL/min/1.73m2 | [facility] | | | CHRONIC KIDNEY DISEASE, | | LABORATORY | | | IF FOUND OVER A 3 MONTH | | | | | PERIOD.GFR <15: KIDNEY | | | | | FAILURE.FOR | | | | | AMERICANS, MULTIPLY THE | | | | | CALCULATED GFR BY | | | | | 1.210.This eGFR is | | | | | calculated using the | | | | | MDRD IDMS traceable | | | | | equation.Testing | | | | | performed at [facility], [address] | | | | | [facility], | | | | | [place] [address] | | | + + + + + + + | Specimen | + + | Blood | + + + + + + + | Performing | Address | City/State/Zipcode | Phone Number | | Organization | | | | + + + + + | [facility] | [address] | [place] [address] | [phone] | | JAC[place] | [address] | | | + + + + + EKG STANDARD 12 LEAD (12/27/2018 3:39 AM) + + + + + | Component | Value | Ref Range | Performed At | + + + + + | Ventricular Rate | 60 | BPM | [facility] | + + + + + | Atrial Rate | 277 | BPM | [facility] | + + + + + | QRS Duration | 96 | ms | [facility] | + + + + + | Q-T Interval | 442 | ms | [facility] | + + + + + | QTC Calculation | 442 | ms | [facility] | | (Bezet) | | | | + + + + + | Calculated R Beaver | 10 | degrees | [facility] | + + + + + | Calculated T Beaver | 0 | degrees | [facility] | + + + + + | Diagnosis | Junctional | | [facility] | | | rhythmVentricular demand | | | | | pacingLow voltage | | | | | QRSAbnormal ECGWhen | | | | | compared with ECG of | | | | | 25-NOV-2017 11:24,No | | | | | significant change since | | | | | previous ECG Confirmed | | | | | by SHILPA TAYLOR MD | | | | | ([id number]) on 12/27/2018 | | | | | 11:49:52 AM | | | + + + + + + + + + + | Performing | Address | City/State/Zipcode | Phone Number | | Organization | | | | + + + + + | [facility] | [address] | [place] [address] | | + + + + + X-ray chest 2 view frontal & lateral (12/26/2018 10:56 PM) + + + | Narrative | Performed At | + + + | This is a non-reportable procedure without a radiologist report and | [facility] | | is used for image storage only | RADIOLOGY | + + + + + + + + | Performing | Address | City/State/Zipcode | Phone Number | | Organization | | | | + + + + + | [facility] | [address] | [place] [address] | | + + + + + Protein / creatinine ratio, urine (11/20/2018 1:10 PM)Only the most recent of 2 results wi thin the time period is included. + + + + + | Component | Value | Ref Range | Performed At | + + + + + | UR | 286.2 (A) | 0 - 150 | | | PROTEIN/CREATININE | | | | + + + + + + + | Specimen | + + | Urine - Urine, | | Unspecified Source | + + CBC w/manual diff (11/20/2018 1:10 PM) + + + + + | Component | Value | Ref Range | Performed At | + + + + + | WBC | 6.5 | 4.5 - 11.0 10^3/mL | | + + + + + | RBC | 3.53 (A) | 4.3 - 5.7 10^6/ L | | + + + + + | HGB | 10.9 (A) | 13.5 - 18.0 g/dL | | + + + + + | HCT | 33.0 (A) | 41 - 50 % | | + + + + + | MCV | 93.6 | 81 - 99 fL | | + + + + + | MCH | 31 | 27 - 33 pg | | + + + + + | MCHC | 33 | 30 - 36 g/dL | | + + + + + | RDW SD | | % | | + + + + + | PLT | 159 | 140 - 440 K/ L | | + + + + + | MPV | | fL | | + + + + + | NEUTROPHILS | 81.1 (A) | 39 - 80 % | | + + + + + | LYMPHOCYTES | 4.5 (A) | 24 - 44 % | | + + + + + | MONOCYTES | 5.7 | 0 - 12 % | | + + + + + | EOSINOPHILS | 8.0 (A) | 0 - 6 % | | + + + + + | BASOPHILS | 0.7 | 0 - 2 % | | + + + + + | Neutrophils Absolute | | / L | | + + + + + | Lymphocytes Absolute | | / L | | + + + + + | Monocytes Absolute | | / L | | + + + + + | Eosinophils Absolute | | / L | | + + + + + | Basophils Absolute | | / L | | + + + + + + + | Specimen | + + | Blood | + + PTH intact no calcium (11/20/2018 1:10 PM)Only the most recent of 2 results within the is included. + + + + + | Component | Value | Ref Range | Performed At | + + + + + | PTH INTACT NO | 129.5 (A) | 15 - 65 pg/mL | | | CALCIUM | | | | + + + + + + + | Specimen | + + | Blood | + + [facility] DEVICE CHECK IN OFFICE (11/10/2018 8:00 AM) + + + + + | Component | Value | Ref Range | Performed At | + + + + + | Date Time | [id number]+0000 | | [facility] | | Interrogation | | | | | Session | | | | + + + + + | Implantable Pulse | MDC_IDC_ENUM_MFG_GDT | | [facility] | | Generator | | | | | Plant Custodian | | | | + + + + + | Implantable Pulse | 1190 Insignia I Ultra | | [facility] | | Generator Model | | | | + + + + + | Implantable Pulse | [id number] | | [facility] | | Generator Serial | | | | | Number | | | | + + + + + | Type Interrogation | MDC_IDC_ENUM_SESS_TYPE_I | | [facility] | | Session | nClinic | | | + + + + + | Clinic Name | [facility] | | [facility] | + + + + + | Implantable Pulse | MDC_IDC_ENUM_DEV_TYPE_IP | | [facility] | | Generator Type | G | | | + + + + + | Implantable Pulse | [id number] | | [facility] | | Generator Implant | | | | | Date | | | | + + + + + | Implantable Lead | Guidant | | [facility] | | Plant Custodian | | | | + + + + + | Implantable Lead | FLEXTEND IS-1 Bi | | [facility] | | Model | Positive Fix RA/RV 59 cm | | | | | 4088 | | | + + + + + | Implantable Lead | [id number] | | [facility] | | Serial Number | | | | + + + + + | Implantable Lead | [id number] | | [facility] | | Implant Date | | | | + + + + + | Implantable Lead | APEX | | [facility] | | Location Detail 1 | | | | + + + + + | Implantable Lead | MDC_IDC_ENUM_LEAD_LOCATI | | [facility] | | Location | ON_CHAMBER_RV | | | + + + + + | Marylou Setting Mode | SSI (A) | | [facility] | | (NBG Code) | | | | + + + + + | Marylou Setting Lower | 60 | {beats}/min | [facility] | | Rate Limit | | | | + + + + + | Marylou Setting | Off (A)Comment: | | [facility] | | Hysterisis Rate | 816059^MDT PROG MARYLOU | | | | | AVDELAY ADAPTIVE | | | | | STARTRATE^MDT - 60 | | | + + + + + | Lead Channel Setting | MDC_IDC_ENUM_POLARITY_BI | | [facility] | | Sensing Polarity | | | | + + + + + | Lead Channel Setting | MDC_IDC_ENUM_ELECTRODE_L | | [facility] | | Sensing Cathode | OCATION_Unknown | | | | Location | | | | + + + + + | Lead Channel Setting | MDC_IDC_ENUM_ELECTRODE_N | | [facility] | | Sensing Cathode | AME_Unknown | | | | Terminal | | | | + + + + + | Lead Channel Setting | MDC_IDC_ENUM_ELECTRODE_L | | [facility] | | Sensing Anode | OCATION_Unknown | | | | Location | | | | + + + + + | Lead Channel Setting | MDC_IDC_ENUM_ELECTRODE_N | | [facility] | | Sensing Anode | AME_UnknownComment: | | | | Terminal | 161802^MDT G MARYLOU | | | | | REFRACTORYPERIOD | | | | | PREVIOUSEVENTCHAMBER | | | | | RV^MDT - | | | | | VENTRICLE 065446^MDT | | | | | PROG MARYLOU | | | | | REFRACTORYPERIOD | | | | | INTERVAL RV^MDT - | | | | | 250 | | | + + + + + | Lead Channel Setting | 2.5 | mV | [facility] | | Sensing Sensitivity | | | | + + + + + | Lead Channel Setting | MDC_IDC_ENUM_SENSING_ADA | | [facility] | | Sensing Adaptation | PTATION_MODE_FixedSensin | | | | Mode | g | | | + + + + + | Lead Channel Setting | MDC_IDC_ENUM_POLARITY_BI | | [facility] | | Pacing Polarity | | | | + + + + + | Lead Channel Setting | MDC_IDC_ENUM_ELECTRODE_L | | [facility] | | Pacing Anode | OCATION_Unknown | | | | Location | | | | + + + + + | Lead Channel Setting | MDC_IDC_ENUM_ELECTRODE_N | | [facility] | | Pacing Anode | AME_Unknown | | | | Terminal | | | | + + + + + | Lead Channel Setting | MDC_IDC_ENUM_ELECTRODE_L | | [facility] | | Sensing Cathode | OCATION_Unknown | | | | Location | | | | + + + + + | Lead Channel Setting | MDC_IDC_ENUM_ELECTRODE_N | | [facility] | | Sensing Cathode | AME_Unknown | | | | Terminal | | | | + + + + + | Lead Channel Setting | 0.50 | ms | [facility] | | Pacing Pulse Width | | | | + + + + + | Lead Channel Setting | 3.5 | V | [facility] | | Pacing Amplitude | | | | + + + + + | Lead Channel Setting | MDC_IDC_ENUM_PACING_CAPT | | [facility] | | Pacing Capture Mode | URE_MODE_FixedPacing | | | + + + + + | Lead Channel | 640Comment: 8211701^MDT | ohm | [facility] | | Impedance Value | STAT LEADS | | | | | LOWPOWERCHANNEL RV | | | | | IMPEDANCE METHOD^MDT - | | | | | INSTRUMENT_INITIATED | | | | | 8100196^MDT STAT LEADS | | | | | LOWPOWERCHANNEL RV | | | | | IMPEDANCE POLARITY^MDT - | | | | | | | | | | 096204^[facility]_IDC_ENUM_POLA | | | | | RITY_BI^[facility] [id number]^M | | | | | DT STAT LEADS | | | | | LOWPOWERCHANNEL RV | | | | | IMPEDANCES POLE TYPE^MDT | | | | | - ANODE 6690137^MDT | | | | | STAT LEADS | | | | | LOWPOWERCHANNEL RV | | | | | IMPEDANCES POLE | | | | | LOCATION^MDT - | | | | | 338837^[facility]_IDC_ENUM_ELEC | | | | | TRODE_LOCATION_Unknown^M | | | | | DC 5076672^MDT STAT | | | | | LEADS LOWPOWERCHANNEL RV | | | | | IMPEDANCES POLE | | | | | ELECTRODE^MDT - | | | | | 602160^[facility]_IDC_ENUM_ELEC | | | | | TRODE_NAME_Unknown^MDC | | | | | 7126400^MDT STAT LEADS | | | | | LOWPOWERCHANNEL RV | | | | | IMPEDANCES POLE TYPE^MDT | | | | | - | | | | | CATHODE 2363448^MDT | | | | | STAT LEADS | | | | | LOWPOWERCHANNEL RV | | | | | IMPEDANCES POLE | | | | | LOCATION^MDT - | | | | | 522813^[facility]_IDC_ENUM_ELEC | | | | | TRODE_LOCATION_Unknown^M | | | | | DC 0791025^MDT STAT | | | | | LEADS LOWPOWERCHANNEL RV | | | | | IMPEDANCES POLE | | | | | ELECTRODE^MDT - | | | | | 853534^[facility]_ENUM_ELEC | | | | | TRODE_NAME_Unknown^[facility] | | | | | | | | + + + + + | Lead Channel Sensing | 5.9Comment: 9938613^MDT | mV | [facility] | | Intrinsic Amplitude | STAT LEADS | | | | | LOWPOWERCHANNEL RV | | | | | SENSITIVITIES METHOD^MDT | | | | | - | | | | | INSTRUMENT_INITIATED | | | | | 1862406^MDT STAT LEADS | | | | | LOWPOWERCHANNEL RV | | | | | SENSITIVITIES | | | | | POLARITY^MDT - | | | | | 195218^[facility]_ENUM_POLA | | | | | RITY_Unknown^[facility] 1001 | | | | | 221^MDT STAT LEADS | | | | | LOWPOWERCHANNEL RV | | | | | SENSITIVITIES POLE | | | | | TYPE^MDT - | | | | | CATHODE 8477618^MDT | | | | | STAT LEADS | | | | | LOWPOWERCHANNEL RV | | | | | SENSITIVITIES POLE | | | | | LOCATION^MDT - | | | | | 879711^[facility]_ENUM_ELEC | | | | | TRODE_LOCATION_Unknown^M | | | | | DC 4205696^MDT STAT | | | | | LEADS LOWPOWERCHANNEL RV | | | | | SENSITIVITIES POLE | | | | | ELECTRODE^MDT - | | | | | 420340^[facility]_ENUM_ELEC | | | | | TRODE_NAME_Unknown^MDC | | | | | 7250123^MDT STAT LEADS | | | | | LOWPOWERCHANNEL RV | | | | | SENSITIVITIES POLE | | | | | TYPE^MDT - | | | | | ANODE 1415793^MDT | | | | | STAT LEADS | | | | | LOWPOWERCHANNEL RV | | | | | SENSITIVITIES POLE | | | | | LOCATION^MDT - | | | | | 967886^[facility]_IDC_ENUM_ELEC | | | | | TRODE_LOCATION_Unknown^M | | | | | DC 3035923^MDT STAT | | | | | LEADS LOWPOWERCHANNEL RV | | | | | SENSITIVITIES POLE | | | | | ELECTRODE^MDT - | | | | | 167149^[facility]_ENUM_ELEC | | | | | TRODE_NAME_Unknown^[facility] | | | | | | | | + + + + + | Lead Channel Pacing | 1.2 | V | [facility] | | Threshold Amplitude | | | | + + + + + | Lead Channel Pacing | 0.50Comment: 7242265^MDT | ms | [facility] | | Threshold Pulse | STAT LEADS | | | | Width | LOWPOWERCHANNEL RV | | | | | CAPTURES METHOD^MDT - | | | | | INSTRUMENT_INITIATED | | | | | 6573717^MDT STAT LEADS | | | | | LOWPOWERCHANNEL RV | | | | | CAPTURES POLARITY^MDT - | | | | | 562026^[facility]_IDC_ENUM_POLA | | | | | RITY_BI^MDC 5662983^M | | | | | DT STAT LEADS | | | | | LOWPOWERCHANNEL RV | | | | | CAPTURES POLE TYPE^MDT - | | | | | ANODE 0355959^MDT | | | | | STAT LEADS | | | | | LOWPOWERCHANNEL RV | | | | | CAPTURES POLE | | | | | LOCATION^MDT - | | | | | 345658^[facility]_IDC_ENUM_ELEC | | | | | TRODE_LOCATION_Unknown^M | | | | | DC 1279215^MDT STAT | | | | | LEADS LOWPOWERCHANNEL RV | | | | | CAPTURES POLE | | | | | ELECTRODE^MDT - | | | | | 955624^[facility]_IDC_ENUM_ELEC | | | | | TRODE_NAME_Unknown^[facility] | | | | | 8205684^MDT STAT LEADS | | | | | LOWPOWERCHANNEL RV | | | | | CAPTURES POLE TYPE^MDT - | | | | | CATHODE 8419703^MDT | | | | | STAT LEADS | | | | | LOWPOWERCHANNEL RV | | | | | CAPTURES POLE | | | | | LOCATION^MDT - | | | | | 287579^[facility]_IDC_ENUM_ELEC | | | | | TRODE_LOCATION_Unknown^M | | | | | DC 1740213^MDT STAT | | | | | LEADS LOWPOWERCHANNEL RV | | | | | CAPTURES POLE | | | | | ELECTRODE^MDT - | | | | | 227225^[facility]_IDC_ENUM_ELEC | | | | | TRODE_NAME_Unknown^[facility] | | | | | | | | + + + + + | Battery Status | [facility]_IDC_ENUM_BATTERY_STA | | [facility] | | | TUS_BOS | | | + + + + + | Marylou Statistic Date | +0000 | | [facility] | | Time Start | | | | + + + + + | Marylou Statistic Date | +0000 | | [facility] | | Time End | | | | + + + + + | Marylou Statistic RV | 18Comment: 3397930^MDT | % | [facility] | | Percent Paced | EVALUATION | | | | | DEPENDENCY^MDT - | | | | | NO 3391083^MDT | | | | | EVALUATION RHYTHM^MDT - | | | | | VS 65 BPM 6689783^MDT | | | | | EVALUATION | | | | | MISCELLANEOUSCOMMENT^MDT | | | | | - PACEMAKER | | | | | INTERROGATION REPORT | | | | | Name: Michael Cr | | | | | Cheryl: AMEE | | | | | REGGIE: | | | | | 1940MRN: | | | | | [id number] | | | | | cardiology provider: | | | | | Sparkle AlsamaraPrimary | | | | | electrophysiology | | | | | provider: NoneMode of | | | | | interrogation: Seen in | | | | | cardiac device clinic | | | | | Device: Keyes | | | | | Scientific Battery | | | | | Longevity: <1/2 years. | | | | | RV Pacin% Pacemaker | | | | | dependent: No | | | | | Interrogation | | | | | resultsPlease see the | | | | | full interrogation | | | | | report attached | | | | | Lead function: Lead | | | | | impedance and threshold | | | | | value trends have been | | | | | reviewed and are | | | | | acceptable based on most | | | | | recent evaluation. RV | | | | | Threshold: 1.3V @ 0.5ms | | | | | RV Amplitude: 5.9mV | | | | | Atrial events:Atrial | | | | | high rate episodes: No | | | | | atrial lead present. | | | | | Known history of atrial | | | | | flutter or atrial | | | | | fibrillation: YesCurrent | | | | | antithrombotic therapy | | | | | including: | | | | | aspirinVentricular | | | | | events: Ventricular high | | | | | rate episodes: | | | | | Tachycardia episodes | | | | | recorded, short in | | | | | nature and appears to be | | | | | irregular per [place] | | | | | Ronnie.Additional | | | | | comments:None. | | | | | Programming changes: | | | | | Temporary programming | | | | | changes were made for | | | | | testing and restored to | | | | | original values. No | | | | | permanent changes were | | | | | made. Follow up: | | | | | The next scheduled | | | | | interrogation will be in | | | | | monthly in the | | | | | cardiac device clinic. | | | | | Impression:1. Normal | | | | | pacemaker function.2. No | | | | | EGM's available. | | | | | Testing performed by: | | | | | Ronnie Perdue | | | | | Scientific | | | + + + + + + +---------+ + + | Performing | Address | City/State/Zipcode | Phone Number | | Organization | | | | + +---------+ + + | [facility] | | | | + +---------+ + + Urine microscopic only (10/24/2018) + + + + + | Component | Value | Ref Range | Performed At | + + + + + | COLOR UA | Yellow | | | + + + + + | CLARITY | Clear | | | + + + + + | Specific Rawlings, UA | 1.015 | 1.005 - 1.030 | | + + + + + | LEUKOCYTE ESTERASE | Negative | | | + + + + + | NITRITE | Negative | | | + + + + + | UROBILINOGEN | Normal | | | + + + + + | PROTEIN | Negative | | | + + + + + | PH,URINE | 5 | 5 - 9 | | + + + + + | BLOOD | Negative | | | + + + + + | KETONES | Negative | | | + + + + + | BILIRUBIN | Negative | | | + + + + + | GLUCOSE | Negative | | | + + + + + + + | Specimen | + + | Urine | + + Uric acid (10/23/2018 9:05 AM) + +---------+ + + | Component | Value | Ref Range | Performed At | + +---------+ + + | URIC ACID | 9.0 (A) | 4.4 - 7.6 | | + +---------+ + + + + | Specimen | + + | Blood | + + from Last 3 Months Insurance + +--------+ +------+-------+ + | Payer | Benefi | Subscriber | Type | Phone | Address | | | t Plan | ID | | | | | | / | | | | | | | Group | | | | | + +--------+ +------+-------+ + | MEDICARE | MEDICA | [id number] | | | [address] | | | RE | | | | [place] [address] | | | IP-OP | | | | | + +--------+ +------+-------+ + + +--------+ +--------+ + + | Guarantor Name | Accoun | Relation to | Date | Phone | Billing Address | | | t Type | Patient | of | | | | | | | | | | + +--------+ +--------+ + + | MICHAEL JOSHI | Person | Self [birth year] Home: | [address] | | | al/Fam | | 1941 | [phone] [place] | | | lissy | | | [birth year] | [phone] | + +--------+ +--------+ + +
--- OUTSIDE RECORDS SUMMARY | ~2019-01-14 | XMS | Encounter Summary ---
Demographics + + + | Address | [address] | | | [place] [address] | + + + | Home Phone | | + + + | Preferred Language | Unknown | + + + | Marital Status | | + + + | Gnosticism Affiliation | Unknown | + + + | Race | Unknown | + + + | Ethnic Group | Unknown | + + + Author + + + | Author | [facility] | + + + | Organization | [facility] | + + + | Address | [...] Team Providers + +------+ + | Care Commercial Sales Specialist Name | Role | Phone | + +------+ + | Amee Costa MD | PCP | | + +------+ + Encounter Details +--------+ + + + + | Date | Type | Department | Care Team | Description | +--------+ + + + + | 11/10/ | Orders Only | [facility] | Derrek Barnhart, | | | 2018 | | Roxanne Miller | DO [address] | | | | | [address] | [place] | | | | [place] | [address] | | | | | [address] | | | | | | [phone] | | | +--------+ + + + [...] | | | | | | [address] [place], [place] | | | | | | [address] | | | | | | | [...] + + + in this encounter Results [facility] DEVICE CHECK IN OFFICE (11/10/2018 8:00 AM) + + + + + | Component | Value | Ref Range | Performed At | + + + + + | Date Time | [id number]+0000 | | [facility] | | Interrogation | | | | | Session | | | | + + + + + | Implantable Pulse | MDC_IDC_ENUM_MFG_GDT | | [facility] | | Generator | | | | | Dump Truck Driver | | | | + + + + + | Implantable Pulse | 1190 Insignia I Ultra | | [facility] | | Generator Model | | | | + + + + + | Implantable Pulse | [id number] | | [facility] | | Generator Serial | | | | | Number | | | | + + + + + | Type Interrogation | [facility]_IDC_ENUM_SESS_TYPE_I | | [facility] | | Session | nClinic | | | + + + + + | Clinic Name | [place] | | [facility] | + + + + + | Implantable Pulse | MDC_IDC_ENUM_DEV_TYPE_IP | | [facility] | | Generator Type | G | | | + + + + + | Implantable Pulse | [id number] | | [facility] | | Generator Implant | | | | | Date | | | | + + + + + | Implantable Lead | Guidant | | [facility] | | Dump Truck Driver | | | | + + + + + | Implantable Lead | FLEXTEND IS-1 Bi | | [facility] | | Model | Positive Fix RA/RV 59 cm | | | | | 4088 | | | + + + + + | Implantable Lead | [id number] | | [facility] | | Serial Number [...] | [facility] | | Hysterisis Rate | 178624^MDT PROG MARYLOU | | | | | [...] AME_UnknownComment: | | | | Terminal | 926954^MDT PROG MARYLOU | | | | | REFRACTORYPERIOD | | | | | PREVIOUSEVENTCHAMBER | | | | | RV^MDT - | | | | | VENTRICLE 487726^MDT | | | | | PROG MARYLOU [...] + + | Lead Channel | 640Comment: 8209144^MDT | ohm | [facility] | | Impedance Value | STAT LEADS | | | | | LOWPOWERCHANNEL RV | | | | | IMPEDANCE METHOD^MDT - | | | | | INSTRUMENT_INITIATED | | | | | 6297191^MDT STAT LEADS | | | | | LOWPOWERCHANNEL RV | | | | | IMPEDANCE POLARITY^MDT - | | | | | | | | | | 571848^[facility]_IDC_ENUM_POLA | | | | | RITY_BI^[facility] [id number]^M | | | | | DT STAT LEADS | | | | | LOWPOWERCHANNEL RV | | | | | IMPEDANCES POLE TYPE^MDT | | | | | - ANODE 1603276^MDT | | | | | STAT LEADS | | | | | LOWPOWERCHANNEL RV | | | | | IMPEDANCES POLE | | | | | LOCATION^MDT - | | | | | 763382^[facility]_IDC_ENUM_ELEC | | | | | TRODE_LOCATION_Unknown^M | | | | | [place] 7304292^MDT STAT | | | | | LEADS LOWPOWERCHANNEL RV | | | | | IMPEDANCES POLE | | | | | ELECTRODE^MDT - | | | | | 762569^[facility]_IDC_ENUM_ELEC | | | | | TRODE_NAME_Unknown^[facility] | | | | | 8369634^MDT STAT LEADS | | | | | LOWPOWERCHANNEL RV | | | | | IMPEDANCES POLE TYPE^MDT | | | | | - | | | | | CATHODE 0567204^MDT | | | | | STAT LEADS | | | | | LOWPOWERCHANNEL RV | | | | | IMPEDANCES POLE | | | | | LOCATION^MDT - | | | | | 355795^[facility]_ENUM_ELEC | | | | | TRODE_LOCATION_Unknown^M | | | | | [place] 1336028^MDT STAT | | | | | LEADS LOWPOWERCHANNEL RV | | | | | IMPEDANCES POLE | | | | | ELECTRODE^MDT - | | | | | 883521^[facility]_ENUM_ELEC | | | | | TRODE_NAME_Unknown^[facility] | | | | | | | | + + + + + | Lead Channel Sensing | 5.9Comment: 0701661^MDT | mV | [facility] | | Intrinsic Amplitude | STAT LEADS | | | | | LOWPOWERCHANNEL RV | | | | | SENSITIVITIES METHOD^MDT | | | | | - | | | | | INSTRUMENT_INITIATED | | | | | 1086005^MDT STAT LEADS | | | | | LOWPOWERCHANNEL RV | | | | | SENSITIVITIES | | | | | POLARITY^MDT - | | | | | 063639^[facility]_IDC_ENUM_POLA | | | | | RITY_Unknown^[facility] 1001 | | | | | 221^MDT STAT LEADS | | | | | LOWPOWERCHANNEL RV | | | | | SENSITIVITIES POLE | | | | | TYPE^MDT - | | | | | CATHODE 0915480^MDT | | | | | STAT LEADS | | | | | LOWPOWERCHANNEL RV | | | | | SENSITIVITIES POLE | | | | | LOCATION^MDT - | | | | | 593971^[facility]_ENUM_ELEC | | | | | TRODE_LOCATION_Unknown^M | | | | | DC 6353543^MDT STAT | | | | | LEADS LOWPOWERCHANNEL RV | | | | | SENSITIVITIES POLE | | | | | ELECTRODE^MDT - | | | | | 643197^[facility]_ENUM_ELEC | | | | | TRODE_NAME_Unknown^MDC | | | | | 1223106^MDT STAT LEADS | | | | | LOWPOWERCHANNEL RV | | | | | SENSITIVITIES POLE | | | | | TYPE^MDT - | | | | | ANODE 7608312^MDT | | | | | STAT LEADS | | | | | LOWPOWERCHANNEL RV | | | | | SENSITIVITIES POLE | | | | | LOCATION^MDT - | | | | | 514049^[facility]_ENUM_ELEC | | | | | TRODE_LOCATION_Unknown^M | | | | | DC 0835436^MDT STAT | | | | | LEADS LOWPOWERCHANNEL RV | | | | | SENSITIVITIES POLE | | | | | ELECTRODE^MDT - | | | | | 891405^[facility]_ENUM_ELEC | | | | | TRODE_NAME_Unknown^[facility] | | | | | | | | + + + + + | Lead Channel Pacing | 1.2 | V | [facility] | | Threshold Amplitude | | | | + + + + + | Lead Channel Pacing | 0.50Comment: 3944645^MDT | ms | [facility] | | Threshold Pulse | STAT LEADS | | | | Width | LOWPOWERCHANNEL RV | | | | | CAPTURES METHOD^MDT - | | | | | INSTRUMENT_INITIATED | | | | | 6152025^MDT STAT LEADS | | | | | LOWPOWERCHANNEL RV | | | | | CAPTURES POLARITY^MDT - | | | | | 455476^[facility]_IDC_ENUM_POLA | | | | | RITY_BI^MDC 6342294^M | | | | | DT STAT LEADS | | | | | LOWPOWERCHANNEL RV | | | | | CAPTURES POLE TYPE^MDT - | | | | | ANODE 8706555^MDT | | | | | STAT LEADS | | | | | LOWPOWERCHANNEL RV | | | | | CAPTURES POLE | | | | | LOCATION^MDT - | | | | | 402837^[facility]_IDC_ENUM_ELEC | | | | | TRODE_LOCATION_Unknown^M | | | | | DC 2810123^MDT STAT | | | | | LEADS LOWPOWERCHANNEL RV | | | | | CAPTURES POLE | | | | | ELECTRODE^MDT - | | | | | 744113^[facility]_IDC_ENUM_ELEC | | | | | TRODE_NAME_Unknown^MDC | | | | | 4350723^MDT STAT LEADS | | | | | LOWPOWERCHANNEL RV | | | | | CAPTURES POLE TYPE^MDT - | | | | | CATHODE 1724951^MDT | | | | | STAT LEADS | | | | | LOWPOWERCHANNEL RV | | | | | CAPTURES POLE | | | | | LOCATION^MDT - | | | | | 359283^[facility]_IDC_ENUM_ELEC | | | | | TRODE_LOCATION_Unknown^M | | | | | DC [id number]^MDT STAT | | | | | LEADS LOWPOWERCHANNEL RV | | | | | CAPTURES POLE | | | | | ELECTRODE^MDT - | | | | | [id number]^MDC_IDC_ENUM_ELEC | | | | | TRODE_NAME_Unknown^MDC | | | | | | | | + + + + + | Battery Status | [facility]DC_IDC_ENUM_BATTERY_STA | | PACEART | | | TUS_BOS | | | + + + + + | Marylou Statistic Date | +0000 | | PACEART | | Time Start | | | | + + + + + | Marylou Statistic Date | + | | PACEART | | Time End | | | | + + + + + | Marylou Statistic RV | 18Comment: [id number]^MDT | % | PACEART | | Percent Paced | EVALUATION | | | | | DEPENDENCY^MDT - | | | | | NO [id number]^MDT | | | | | EVALUATION RHYTHM^MDT - | | | | | VS 64 BPM [id number]^MDT | | | | | EVALUATION | | | | | MISCELLANEOUSCOMMENT^MDT | | | | | - PACEMAKER | | | | | INTERROGATION REPORT | | | | | Name: Michael Cr | | | | | BanducciPCP: AMEE | | | | | TOWNSLEYDOB: | | | | | 1940MRN: | | | | | [id number] | | | | | cardiology provider: | | | | | Mershed AlsamaraPrimary | | | | | electrophysiology | | | | | provider: NoneMode of | | | | | interrogation: Seen in | | | | | cardiac device clinic | | | | | Device: [facility] | | | | | Scientific Battery [...] | | | | | irregular per [place], | | | | | [facility].Additional | | | | | comments:None. | [...] | | | + +---------+ + + in this encounter Visit Diagnoses Not on filein this encounter"
--- OUTSIDE RECORDS SUMMARY | ~2019-01-14 | XMS | Encounter Summary ---
Demographics + + + | Address | [address] | | | [place] [address] | + + + | Home Phone | | + + + | Preferred Language | Unknown | + + + | Marital Status | | + + + | Episcopalian Affiliation | Unknown | + + + | Race | Unknown | + + + | Ethnic Group | Unknown | + + + Author + + + | Author | [facility] | + + + | Organization | [facility] | + + + | Address | [...] Team Providers + +------+ + | Care Gunnery/Ordnance Officer Name | Role | Phone | [...] | | | | | [place] [address] | | | | | | [phone] | | | +--------+ + + + [...] [place] | | | | | | [address] | | | | | | | [...]
--- OUTSIDE RECORDS SUMMARY | ~2019-01-14 | XMS | Encounter Summary ---
Demographics + + + | Address | [address] | | | [place] [address] | + + + | Home Phone | | + + + | Preferred Language | Unknown | + + + | Marital Status | | + + + | Yarsanism Affiliation | Unknown | + + + | Race | Unknown | + + + | Ethnic Group | Unknown | + + + Author + + + | Author | [facility] | + + + | Organization | [facility] | + + + | Address | [...] Team Providers + +------+ + | Care Reading Aide Name | Role | Phone | + +------+ + | Amee Urrutia MD | PCP | | + +------+ + Reason for Visit Auth/Cert +--------+--------+ + + + + | Status | Reason | Specialty | Diagnoses / | Referred By | Referred To | | | | | Procedures | Contact | Contact | +--------+--------+ + + + + | | | | Diagnoses | | Kr 3rd | | | | | Dyspnea | | [facility] [place] | | | | | Elevated | | Pavilion | | | | | troponin | | [address] | | | | | | | [place] | | | | | | | [place] | | | | | | | [address] Phone: | | | | | | | [phone] | | | | | | | Fax: | | | | | | | [phone] | +--------+--------+ + + + + Encounter Details +--------+ + + + + | Date | Type | Department | Care Team | Description | +--------+ + + + + | 12/27/ | Hospital | [facility] | Enriqueta Reese, | Hypervolemia, | | 2019 - | Encounter | [facility] | [address] | unspecified | | | | [facility] | [place] [address] | hypervolemia type | | 01/08/ | | [address] | [phone] | (Primary Dx) | | 2019 | | [place] [address] | | | | | | [phone] | Franki Carrizales MD | | | | | | [address] | | | | | | [place] [address] | | | | | | [phone] | | | | | | | | | | | | Shar Dawson, | | | | | | [address] | | | | | | [place] [address] | | | | | | [phone] | | | | | | | | | | | | Nellie Clinton | | | | | | MD [address] | [address] | | | | | | [place] [address] | | | | | | [phone] | | | | | | | [...] + + + as of this encounter Last Filed Vital [...] PM PDT | + + + + in this encounter Discharge Summaries Nellie Clinton MD - 01/08/2019 9:30 AM PDTFormatting of this note may be differ ent from the original. [facility]: Hospitalist Physician Discharge Summary Patient ID: [...] all discontinued. I have discussed with Dr. 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 He will check his bloo d pressure [...] patient will follow u p outpatient with naturalization examiner. Wound care instructions have been given. Plan [...] arm Pulse: 85 79 79 80 Resp: 18 Temp: 97.6 F (36.4 C) 98 F [...] Home Follow up: Amee Urrutia MD [address] [place] [address] Schedule an appointment as soon as possible for a visit in 3 days resume care with all providers you were seeing prior to admission Danny Gandara MD [address] [address] Schedule an appointment as soon as possible [...] MG tablet Commonly known as: DEMADEX Nellie Loco Clinton MD 01/08/2019 9:30 AM Code Status: Full Code Discharge took 45 minutes, to include final examination, discussion of admission, and prep aration of prescriptions, instructions for ongoing care, follow up and dictation of summary. This entry has been created using [employer] Speech Recognition software and [employer]. The entry has been reviewed and there may still exist sound alike word errors. in this encounter Discharge Instructions Lyle Vences RN - 01/04/2019Formatting of this note may be different from the original. Discharge Instructions for Acute Kidney Injury You have been diagnosed with acute kidney injury. This means that your kidneys are not work ing properly. When both kidneys are healthy, they help filter out fluid and waste from the b lood and body.Acute kidney injury has many causes. These include urinary blockages, infect ion, lack of enough blood supply, and medicines that can injurekidneys. In some cases, acu te kidney injury is short-term (temporary), lasting several days to a few months. This is be cause the kidney can repair itself. But acute kidney injury can also result in chronic kidne y disease or end stage renal failure. Here are some instructions for you to follow as you re cover. Home care Follow any instructions for eating and drinking given to you by your healthcare provider . Drink less fluid, if instructed by your healthcare provider. Keep a record of everything you eat and drink. Measure the amount of urine and stool you have each day. Weigh yourself every day, at the same time of day, and in the same kind of clothes. Keep a daily record of your daily weights. Take your temperature every day. Keep a record of the results. Learn to take your own blood pressure. Keep a record of your results. Ask your healthcar e provider when you should seek emergency medical attention. Your provider will tell you whi ch blood pressure reading is dangerous. Avoid contact with people who have infections (colds, bronchitis, or skin conditions). Practice good personalhygiene. This is especially important if you have a catheter in place when you leave the hospital. Doing so helps keep you safe from infection. Take your medicines exactly as directed. You may require frequent blood and urine tests to monitor your kidney function. Follow-up care Follow up with your healthcare provider, or as advised. When to seek medical care Call yourhealthcare providerright away if you have any of the following: Signs of bladder infection (urinating more often than usual, or burning, pain, bleeding, or hesitancy when you urinate) Signs of infection around your catheter (redness, swelling, warmth, or drainage) Rapid weight loss or weight gain, such as 3pounds or more in 24 hours or 6 pounds or m ore in 7 days Fever above 100.4F (38.0C) or chills Muscle aches Night sweats Very little or no urine output Swelling of your hands, legs, or feet Back pain Abdominal pain Extreme tiredness Date Last Reviewed: 11/20/201619998065-3823 [employer]. [address] [place] [address], [place] [address]. All righ ts reserved. This information is not intended as a substitute for professional medical care. Always follow your healthcare professional's instructions. Outpatient follow-up with podiatry next week For left foot toes: Carpio effected area with betadine BID or PRN and leave open to air. Wound care to apply bilateral lower leg 2 layer compression wraps weekly for compression th erapy for pt. Check blood pressure twice daily and take reading to PCP Check weight daily Call PCP if systolic blood pressure is over 170 If your weight increases by 3-5 pounds in 3 days restart torsemide and potassium. BMP on January 11, 2019-results to PCP HOME HEALTH ORDER I certify that Michael Joshi under my care and that I had a face to face encounter on 01/08 that meets the physician face to face encounter requirements. I certify that based on my findings , the patient is in need of intermittent skilled services and a plan for furnis panchito these services to include, but not limited to the services listed in the questions belo w: Primary diagnosis for home health:Severe Weakness Additional diagnosis:Deconditioning Services needed:PT eval and treat & OT eval and treat, long-term eval and treat wound s Please allow 5 days for HH to start. Patient is homebound because he/she cannot leave home without assistance of another individ ual and leaving the home requires a considerable and taxing effort. Patient needs the assist ance of another individual to leave home because: Severe weakness Physician assuming care for Home Health services:AMEE URRUTIA in this encounter Medications at Time of Discharge + + +--------+---------+ + + | Medication | Sig. | Disp. | Refills | Start | End Date | | | | | | Date | | + + +--------+---------+ + + | allopurinol | Take 2 tablets by | 60 | 11 | 03/23/20 | | | (ZYLOPRIM) 100 MG | mouth daily. | tablet | | 18 | 9 | | tablet | | | | | | + + +--------+---------+ + + | ascorbic acid | Take 1,000 mg by | | | | | | (VITAMIN C) 500 MG | mouth daily. | | | | | | tablet | | | | | | + + +--------+---------+ + + | aspirin 81 MG | Take 81 mg by mouth | | | | | | chewable tablet | daily with | | | | | | | breakfast. | | | | | + + +--------+---------+ + + | atorvastatin | Take 20 mg by mouth | | | | | | (LIPITOR) 20 MG | nightly. | | | | | | tablet | | | | | | + + +--------+---------+ + + | cholecalciferol | Take 1,000 Units by | | | | | | (VITAMIN D-3) 1000 | mouth daily. | | | | | | units tablet | | | | | | + + +--------+---------+ + + | | Take 1 tablet by | | | | | | HYDROcodone-acetamin | mouth every 6 (six) | | | | | | ophen (NORCO) 5-325 | hours as needed for | | | | | | MG per tablet | Pain. | | | | | + + +--------+---------+ + + | mometasone | Apply topically | | | | | | (ELOCON) 0.1 % cream | daily. | | | | | + + +--------+---------+ + + | PARoxetine (PAXIL) | Take 20 mg by mouth | | | | | | 20 MG tablet | every morning. | | | | | + + +--------+---------+ + + | pramipexole | Take 0.125 mg by | | | | | | (MIRAPEX) 0.125 MG | mouth 2 (two) times | | | | | | tablet | daily as needed. | | | | | + + +--------+---------+ + + as of this encounter Progress Notes Nellie Clinton MD - 01/07/2019 1:24 PM PDTFormatting of this note may be differ ent from the original. [facility]: Hospitalist Progress Note Hospital Day: LOS: [...] and affect. DATA Recent Labs Lab 01/05/19 0601/04/19 0549 01/03/19 0544 WBC 8.75 8.75 7.89 [...] the last 168 hours. Recent Labs Lab 01/07/19 0438 01/06/19 0536 01/05/19 0612 PHOS 3.3 3.5 4.0 [...] heart failure (HCC) Chronic diastolic heart failure ([facility] [...] PM This entry has been created using [employer] Speech Recognition software and [employer]. The entry has been reviewed and there may still exist sound alike word errors. José Miguel Hylton - 01/07/2019 1:00 PM PDTVisit d/t LOS. Met with Pt and , Pt voiced his f rustration and fears of not being able to get up from his bed days before, today I feel bett er in comparison of the last week. He hopes to be DC tomorrow. Prayer for their hope was off ered and accepted.Hyun Irvin, RN - 01/06/2019 4:31 PM PDTPt hypotensive (71/50) not h aving any sympyoms. 500cc bolus given. BP now 99/55. BLE dressings removed and to be replace d by wound care tomorrow.End of shifts audits complete LEONEL Govea Sara M, RN - 01/06/2019 3:07 PM PDTTC received from floor RN regarding wound care orders. They had removed coban type dressing and state that orders did not seem to match turner ssing that she removed. Floor RN was concerned that it appeared that these dressings had [...] Aguayo RN, BSN, CWCN 01/06/2019 3:09 PM Nellie Clinton MD - 01/06/2019 9:37 AM PDTFormatting of this note may be differ ent from the original. [facility]: Hospitalist Progress Note Hospital Day: LOS: [...] C) Oral 80 16 91 % - 01/05/19 2004 98/66 98.7 F (37.1 C) Oral 78 [...] apnea) Pulmonary hypertension (HCC) Right heart failure ([facility]) [...] AM This entry has been created using [employer] Speech Recognition software and [employer]. The entry has been reviewed and there may still exist sound alike word errors. Dayna Roy, Twist Packer - 01/05/2019 3:46 PM PDTFormatting of this note may b e different from the original. 01/05/19 1459 Subjective Timepoint Admit Pt c/o Pt triggered for screening secondary to LOS 8. Pt presented to [facility] with SOB and ang darcy. D/C to [...] pt has followed RD in past at [facility], doesn't cook with salt, uses Mrs. Mitchell and herbs & spices, chooses low-Na foods, [...] Low Follow up date 01/12/19 Dayna Roy, Twist Packer Associated attestation - Jacob Diaz RD - 01/05/2019 3:48 PM VENESSA Gooden Christopher D [facility] - 01/05/2019 3:05 PM PDTRx CHF Medication Counseling Note Patient received medication counseling for the following CHF medications: (ARBs): losartan (COZAAR) Beta Blockers: metoprolol succinate (TOPROL XL) Diuretics: torsemide (DEMADEX) and metolazone (ZAROXOLYN) I had the pleasure to speak with the patient today regarding his medications utilized in [facility] management of diastolic heart failure. We discussed [...] demonstrated understanding of the material discussed. Pedrito Crane, [facility] 01/05/2019 3:04 Nellie Roberto MD - 01/05/2019 10:33 AM PDTFormatting of this note may be different from the original. [facility]: Hospitalist Progress Note Hospital Day: LOS: [...] and affect. DATA Recent Labs Lab 01/05/19 0601/04/19 0549 01/03/19 0544 WBC 8.75 8.75 7.89 [...] the last 168 hours. Recent Labs Lab 01/05/19 0601/04/19 0549 01/03/19 0544 PHOS 4.0 3.1 3.2 Recent Labs Lab 01/05/1912 01/04/19 0549 01/03/19 0544 MG 2.1 2.1 [...] Disposition: Inpatient Code Status: Full Code Nellie Loco Clinton MD 01/05/2019 10:38 AM This entry has been created using [employer] Speech Recognition software and [employer]. The entry has been reviewed and there may still exist sound alike word errors. Shar Dawson MD - 01/04/2019 10:10 PM PDTFormatting of this note may be different fro m the original. [facility]: Hospitalist Progress Note Pt: Michael Huttonjairon AGE/SEX: 78 y.o. male ROOM: 7114/7114-1 : [...] other chronic comorbidities who p resents to [facility] ER from [facility] on 12/27 for acute dyspnea/anginal equivalent. Subsequently: [...] not d/c'd. He is accepted to a [facility] and also he does get unaboots changed weekly. SUBJECTIVE: Feeling well no complaints despite the hypotension. No chest pain, MERINO. No cough on recumbency. Had no orthopnea [...] BP Temp Temp src Pulse Resp SpO2 01/04/192045 90/53 - - - - - 01/04/19 2043 (!) 83/50 - - 79 - - 01/04/19 1942 130/71 98 F [...] hours) at 01/04/192210 Last data filed at 01/04/191944 Gross per 24 hour Intake 1800 ml [...] 01/04/2019 Invalid input(s): LABALBU Recent Labs Lab 01/04/1949 01/03/19 0544 01/02/19 0552 MG 2.1 2.3 2.3 No results for input(s): AMYLASE in the last 168 hours. No results for input(s): PHART, PO2ART, MLP8DNF, X3WRWXMI, BEART in the last 168 hours. No results for input(s): APTT, INR, PTT in the last 168 hours. No results for input(s): TSH, T3FREE, FREET4 in the last 168 hours. No results for input(s): CKTOTAL, TROPONINI, TROPONINT, CKMBINDEX in the last 168 hours. Results No results found for the last 72 hours. RADIOLOGY: Nm Myocardial Perfusion Spect (stress And Rest) Result [...] Vitals: 01/04/19 1534 01/04/19 1942 01/04/19 2043 01/04/192045 BP: 92/57 130/71 (!) 83/50 90/53 BP [...] and managing patient and counseling/coordination. Dictation software, [email or web address], used which may contain error for similar sounding words even af ter review. Personal communication requested for any clarification. Portions of this chart may have been copied from previous notes for continuity of care purp Pablo Ramírez RN - 01/04/2019 2:32 PM PDTPatient had decreased Bp's for part of the day , they are on the upward trend now, and Dr. Dawson choose to delay pt d/c and keep overn ight for observation.Shar Dawson MD - 01/03/2019 10:12 AM PDTFormatting of this note may be different from the original. [facility]: Hospitalist Progress Note Pt: Michael Joshi [...] other chronic comorbidities who p resents to [facility] ER from [facility] on 12/27 for acute dyspnea/anginal equivalent. SUBJECTIVE: Patient without complaints as usual he reports feeling generally well. Blood pressure does seem to be climbing a bit and systolic up to 170 at one time. No chest pain, MERINO. No cough on recumbency. Had no orthopnea [...] hours. No results for input(s): PHART, PO2ART, TZF3JHE, G0UTAHPW, BEART in the last 168 hours. No results for input(s): APTT, INR, PTT in the last 168 hours. No results for input(s): TSH, T3FREE, FREET4 in the last 168 hours. No results for input(s): CKTOTAL, TROPONINI, TROPONINT, CKMBINDEX in the last 168 hours. Results No results found for the last 72 hours. RADIOLOGY: Nm Myocardial Perfusion Spect (stress And Rest) Result [...] in coordination of care, seeing and managing cory meghan, review of data, coordination with staff, coordination with involved consultants, and including any scheduled multidisciplinary rounding focused on the patient with 50 percent or more spent seeing and managing patient and counseling/coordination. Dictation software, [email or web address], used which may contain error for similar sounding words even af ter review. Personal communication requested for any clarification. Portions of this chart may have been copied from previous notes for continuity of care purp Shar Gordon MD - 01/02/2019 9:58 AM PDTFormatting of this note may be different fro m the original. [facility]: Hospitalist Progress Note Pt: Michael Joshi AGE/SEX: 78 y.o. male ROOM: [facility] : 1940 PCP: AMEE URRUTIA ADMIT DATE: [...] other chronic comorbidities who p resents to [facility] ER from [facility] on 12/27 for acute dyspnea/anginal equivalent. SUBJECTIVE: Patient reports feeling well without complaints. Blood pressure seems to be a bit improved today without the hypotension. No chest pain, MERINO. No cough on recumbency. Had no orthopnea [...] Infusions sodium chloride (IV) 75 mL/hr at 01/01/19 2116 PRN Medications acetaminophen OR acetaminophen, ammonium lactate, [...] mal for patient. LABS: Recent Labs Lab 01/02/1955101/01/1954112/31/18 0521 WBC 8.72 9.46 9.69 HGB 11.9* 12.2* 12.7* HCT 37.0* 37.3* 38.7* PLT 211 220 220 NEUTOPHILPCT 73.05 73.95 74.32 MONOPCT 8.21 6.69 7.35 Recent Labs Lab 01/02/1955101/01/1942 12/31/18 0521 12/27/18 0517 NA 139 138 139 < > 142 [...] 01/02/2019 Invalid input(s): LABALBU Recent Labs Lab 01/02/1955101/01/1942 12/31/18 0521 MG 2.3 2.3 2.5* No results for input(s): AMYLASE in the last 168 hours. No results for input(s): PHART, PO2ART, SZE3NRW, U6SKTLWG, BEART in the last 168 hours. No results for input(s): APTT, INR, PTT in the last 168 hours. Recent Labs Lab 12/27/18 0517 TSH 1.500 Recent Labs Lab 12/27/18 0751 12/27/18 0517 TROPONINI 0.046* 0.048* Results No results found for the last 72 hours. RADIOLOGY: Nm Myocardial Perfusion Spect (stress And Rest) Result [...] arm Pulse: 82 88 95 86 Resp: 20 20 18 Temp: 97.5 F (36.4 C) 97.4 [...] and managing patient and counseling/coordination. Dictation software, [email or web address], used which may contain error for similar sounding words even af ter review. Personal communication requested for any clarification. Portions of this chart may have been copied from previous notes for continuity of care purp Shar Gordon MD - 01/01/2019 9:41 AM PDTFormatting of this note may be different fro m the original. [facility]: Hospitalist Progress Note Pt: Michael Joshi AGE/SEX: 78 y.o. male ROOM: [facility]/7114-1 : 1940 PCP: AMEE URRUTIA ADMIT DATE: [...] other chronic comorbidities who p resents to [facility] ER from [facility] on 12/27 for acute dyspnea/anginal equivalent. SUBJECTIVE: Patient seen and examined. Patient without any complaints. Did have some low blood pressure s again today down into the 70s systolic. No chest pain, MERINO. No cough on recumbency. Had no orthopnea [...] mal for patient. LABS: Recent Labs Lab 01/01/19 0542 12/31/18 0521 12/30/18 0528 WBC 9.46 9.69 9.71 HGB 12.2* 12.7* 12.5* HCT 37.3* 38.7* 38.0* PLT 220 220 210 NEUTOPHILPCT 73.95 74.32 77.17 MONOPCT 6.69 7.35 8.10 Recent Labs Lab 01/01/19 0542 12/31/18 0521 12/30/1852712/27/18516 NA 138 139 139 < > 142 [...] 01/01/2019 Invalid input(s): LABALBU Recent Labs Lab 01/01/1942 12/31/1852012/30/18527 MG 2.3 2.5* 1.9 No results for input(s): AMYLASE in the last 168 hours. No results for input(s): PHART, PO2ART, HWF0BFQ, C7OQNYGQ, BEART in the last 168 hours. No results for input(s): APTT, INR, PTT in the last 168 hours. Recent Labs Lab 12/27/18 05 TSH 1.500 Recent Labs Lab 12/27/18 0751 12/27/18516 TROPONINI 0.046* 0.048* Results No results found for the last 72 hours. RADIOLOGY: Nm Myocardial Perfusion Spect (stress And Rest) Result [...] situ Pulmonary hypertension (HCC) Right heart failure ([facility]) Chronic systolic heart failure ([facility] [...] await recommendations from nephrology. Recent Labs Lab 01/01/19 0542 12/31/18 0521 12/30/18 0528 NA 138 139 139 K 3.4* [...] and managing patient and counseling/coordination. Dictation software, [email or web address], used which may contain error for similar sounding words even af ter review. Personal communication requested for any clarification. Portions of this chart may have been copied from previous notes for continuity of care purp Shar Gordon MD - 12/31/2018 7:59 PM PDTFormatting of this note may be different fro m the original. [facility]: Hospitalist Progress Note Pt: Michael Huttonjairon AGE/SEX: 78 y.o. male ROOM: 7114/7114-1 : [...] other chronic comorbidities who p resents to [facility] ER from [facility] on 12/27 for acute dyspnea/anginal equivalent. SUBJECTIVE: Patient seen and examined. Pt reports feeling reasonably well. He did have hypotension tod ay and increase bun/creatinine. No chest pain, MERINO. No cough on recumbency. Had no orthopnea [...] 2103 96/53 - - - - - 12/30/18 2025 102/68 97.6 F (36.4 C) Axillary 73 16 96 % I&O Detailed Table: Intake/Output Summary (Last 24 hours) at 12/31/18 195 Last data filed at 12/31/18 1829 Gross per 24 hour Intake 1650 ml [...] mal for patient. LABS: Recent Labs Lab 12/31/1852012/30/1852712/29/18554 WBC 9.69 9.71 10.15 HGB 12.7* 12.5* 12.0* HCT 38.7* 38.0* 36.8* PLT 220 210 197 NEUTOPHILPCT 74.32 77.17 80.14 MONOPCT 7.35 8.10 6.85 Recent Labs Lab 12/31/1852012/30/1852712/29/1855 12/27/18 0517 NA 139 139 140 < [...] Invalid input(s): LABALBU Recent Labs Lab 12/31/1852012/30/1852712/29/18 0555 MG 2.5* 1.9 1.9 No results for input(s): AMYLASE in the last 168 hours. No results for input(s): PHART, PO2ART, OWU3SAX, M6GZCIIP, BEART in the last 168 hours. No results for input(s): APTT, INR, PTT in the last 168 hours. Recent Labs Lab 12/27/18 0517 TSH 1.500 Recent Labs Lab 12/27/18 0751 12/27/18 0517 TROPONINI 0.046* 0.048* Results No results found for the last 72 hours. RADIOLOGY: Pr Myocardial Perfusion Spect (stress And Rest) Result [...] and managing patient and counseling/coordination. Dictation software, [email or web address], used which may contain error for similar sounding words even af ter review. Personal communication requested for any clarification. Portions of this chart may have been copied from previous notes for continuity of care purp Shar Gordon MD - 12/30/2018 9:28 AM PDTFormatting of this note may be different fro m the original. [facility]: Hospitalist Progress Note Pt: Michael Joshi [...] other chronic comorbidities who p resents to [facility] ER from [facility] on 12/27 for acute dyspnea/anginal equivalent. SUBJECTIVE: Patient seen and examined. Patient has no specific complaints today with the exception of s ome generalized weakness. He reports feeling reasonably well. No chest pain, MERINO. No cough on recumbency. Had no orthopnea [...] Table: Intake/Output Summary (Last 24 hours) at 12/30/18927 Last data filed at 12/30/18 0747 Gross [...] mal for patient. LABS: Recent Labs Lab 12/30/1852712/29/1855412/28/18517 WBC 9.71 10.15 8.35 HGB 12.5* 12.0* 10.4* HCT 38.0* 36.8* 30.9* PLT 210 197 165 NEUTOPHILPCT 77.17 80.14 81.99 MONOPCT 8.10 6.85 6.33 Recent Labs Lab 12/30/1852712/29/1855412/28/1851712/27/18516 NA 139 140 143 142 K 3.3* [...] hours. No results for input(s): PHART, PO2ART, GGS1MZE, V8TJODPI, BEART in the last 168 hours. No results for input(s): APTT, INR, PTT in the last 168 hours. Recent Labs Lab 12/27/18 0517 TSH 1.500 Recent Labs Lab 12/27/18 0751 12/27/18 0517 TROPONINI 0.046* 0.048* Results No results found for the last 72 hours. RADIOLOGY: Nm Myocardial Perfusion Spect (stress And Rest) Result [...] Pulse: 78 74 99 Resp: 20 20 Temp: 98.3 F (36.8 C) [...] and managing patient and counseling/coordination. Dictation software, [email or web address], used which may contain error for similar sounding words even af ter review. Personal communication requested for any clarification. Portions of this chart may have been copied from previous notes for continuity of care purp Shar Gordon MD - 12/29/2018 4:15 PM PDTFormatting of this note may be different fro m the original. [facility]: Hospitalist Progress Note Pt: Mihcael Joshi AGE/SEX: 78 y.o. male ROOM: [facility]/7114- : 1940 PCP: AMEE URRUTIA ADMIT DATE: [...] other chronic comorbidities who p resents to [facility] ER from [facility] on 12/27 for acute dyspnea/anginal equivalent. SUBJECTIVE: Patient seen and examined. Complaint of generalized weakness. . No chest pain, MERINO. No cough on recumbency. Had no orthopnea [...] (36.7 C) Oral 82 20 92 % 12/28/18 2237 135/80 - - 90 - - 12/28/18 2020 140/87 98.2 F (36.8 C) Oral 73 [...] mal for patient. LABS: Recent Labs Lab 12/29/1855412/28/1851712/27/18516 WBC 10.15 8.35 7.62 HGB 12.0* 10.4* 9.8* HCT 36.8* 30.9* 30.0* PLT 197 165 164 NEUTOPHILPCT 80.14 81.99 79.31 MONOPCT 6.85 6.33 6.89 Recent Labs Lab 12/29/1855412/28/1851712/27/18516 NA 140 143 142 K 3.6 4.3 4.6 CL 98* 106 110* CO2 31 28 21* BUN 48* 40* 44* CREATININE 2.2* 2.0* 1.9* PROT -- -- 6.4 BILITOT -- -- 0.5 ALT -- -- 14 AST -- -- 12 Phosphorus: Lab Results Component Value Date PHOS 3.2 12/27/2018 Invalid input(s): LABALBU Recent Labs Lab 12/29/1855412/28/1818 12/27/18516 MG 1.9 1.7 2.0 No results for input(s): AMYLASE in the last 168 hours. No results for input(s): PHART, PO2ART, JDM9ZRX, X3XUFNXA, BEART in the last 168 hours. No results for input(s): APTT, INR, PTT in the last 168 hours. Recent Labs Lab 12/27/18 0517 TSH 1.500 Recent Labs Lab 12/27/18 0751 12/27/18 0517 TROPONINI 0.046* 0.048* Results No results found for the last 72 hours. RADIOLOGY: Nm Myocardial Perfusion Spect (stress And Rest) Result [...] and managing patient and counseling/coordination. Dictation software, [email or web address], used which may contain error for similar sounding words even af ter review. Personal communication requested for any clarification. Portions of this chart may have been copied from previous notes for continuity of care purp Rhonda Mendiola, AGRICULTURE MANAGER - 12/29/2018 1:01 AM PDTPer RN's request, Pt was assessed for need of CPAP. Pt on 2L, satting in the low-mid 90s and in no respiratory distress. 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 In addition, the Pt indicated that he no longer snores and therefore doesn't necessitate to use CPAP. Pt refused to wear CPAP. RN updated. Franki Carrizales MD - 12/28/2018 9:45 AM [facility] Service: Hospitalist Progress Note Hospital Day: [...] other chronic comorbidities who p resents to [facility] ER from [facility] on 12/27 for acute dyspnea/anginal equivalent. SUBJECTIVE [...] Status: Full Code Franki Carrizales MD 12/27/2018 in this encounter Plan of Treatment +--------+ [...] | | | | | | [address] [place] [place] | | | | | | [address] | | | | | | | [...] + +--------+ + + + | US LULU RESTING | Routin | 12/30/2018 | | [...] + + + in this encounter Results Renal function panel (01/08/2019 6:14 AM) + + + + + | [...] the | | | | | MDRD IDMD traceable | | | | | equation.Testing | | | | | performed at [facility], [address] | | | | | [facility], | | | | | [place] [address] | | | + + + + + + + | Specimen | + + | Blood | + + + + + + + | Performing | Address | City/State/Zipcode | Phone Number | | Organization | | | | + + + + + | [facility] | [address] | [place] [address] | [phone] | | LABORATORY | [address] | | | + + + + + Renal function panel (01/07/2019 4:38 AM) + + + + + | Component | Value | Ref Range | Performed At | + + + + + | SODIUM | 139 | 135 - 145 mmol/L | [facility] | | | | | LABORATORY | + + + + + | POTASSIUM | 3.3 (L) | 3.5 - 4.9 mmol/L | [facility] | | | | | LABORATORY | + + + + + | CHLORIDE | 96 (L) | 99 - 109 mmol/L | [facility] | | | | | LABORATORY | + + + + + | CO2 | 33 (H) | 23 - 32 mmol/L | [facility] | | | | | LABORATORY | + + + + + | ANION GAP AGAP | 13 | 5 - 20 mmol/L | [facility] | | | | | LABORATORY | + + + + + | GLUCOSE | 96 | 65 - 99 mg/dL | [facility] | | | | | LABORATORY | + + + + + | BUN | 96 (H) | 8 - 25 mg/dL | [facility] | | | | | LABORATORY | + + + + + | CREATININE | 2.8 (H) | 0.70 - 1.30 mg/dL | [facility] | | | | | LABORATORY | + + + + + | CALCIUM | 9.5 | 8.5 - 10.5 mg/dL | [facility] | | | | | LABORATORY | + + + + + | Albumin | 3.0 (L) | 3.3 - 4.8 g/dL | [facility] | | | | | LABORATORY | + + + + + | PHOSPHORUS | 3.3 | 2.3 - 4.8 mg/dL | [facility] | | | | | LABORATORY | + + + + + | EGFR | 22 (L)Comment: GFR <60: | >60 mL/min/1.73m2 | [...] the | | | | | MDRD IDMD traceable | | | | | equation.Testing | | | | | performed at [facility], [address] | | | | | [facility], | | | | | [place] [address] | | | + + + + + + + | Specimen | + + | Blood | + + + + + + + | Performing | Address | City/State/Zipcode | Phone Number | | Organization | | | | + + + + + | [facility] | [address] | [place] [address] | [phone] | | LABORATORY | [address] | | | + + + + + Renal function panel (01/06/2019 5:36 AM) + + + + + | Component | Value | Ref Range | Performed At | + + + + + | SODIUM | 139 | 135 - 145 mmol/L | [facility] | | | | | LABORATORY | + + + + + | POTASSIUM | 3.4 (L) | 3.5 - 4.9 mmol/L | [facility] | | | | | LABORATORY | + + + + + | CHLORIDE | 95 (L) | 99 - 109 mmol/L | [facility] | | | | | LABORATORY | + + + + + | CO2 | 33 (H) | 23 - 32 mmol/L | [facility] | | | | | LABORATORY | + + + + + | ANION GAP AGAP | 14 | 5 - 20 mmol/L | [facility] | | | | | LABORATORY | + + + + + | GLUCOSE | 103 (H) | 65 - 99 mg/dL | [facility] | | | | | LABORATORY | + + + + + | BUN | 89 (H) | 8 - 25 mg/dL | [facility] | | | | | LABORATORY | + + + + + | CREATININE | 2.9 (H) | 0.70 - 1.30 mg/dL | [facility] | | | | | LABORATORY | + + + + + | CALCIUM | 9.5 | 8.5 - 10.5 mg/dL | [facility] | | | | | LABORATORY | + + + + + | Albumin | 2.9 (L) | 3.3 - 4.8 g/dL | [facility] | | | | | LABORATORY | + + + + + | PHOSPHORUS | 3.5 | 2.3 - 4.8 mg/dL | [facility] | | | | | LABORATORY | + + + + + | EGFR | 21 (L)Comment: GFR <60: | >60 mL/min/1.73m2 | [...] | | | | | performed at [facility], [address] | | | | | [facility], | | | | | [place] [address] | | | + + + + + + + | Specimen | + + | Blood | + + + + + + + | Performing | Address | City/State/Zipcode | Phone Number | | Organization | | | | + + + + + | [facility] | [address] | [place] [address] | [phone] | | LABORATORY | [address] | | | + + + + + Renal function panel (01/05/2019 6:12 AM) + + + + + | Component | Value | Ref Range | Performed At | + + + + + | SODIUM | 141 | 135 - 145 mmol/L | [facility] | | | | | LABORATORY | + + + + + | POTASSIUM | 4.0 | 3.5 - 4.9 mmol/L | [facility] | | | | | LABORATORY | + + + + + | CHLORIDE | 96 (L) | 99 - 109 mmol/L | [facility] | | | | | LABORATORY | + + + + + | CO2 | 37 (H) | 23 - 32 mmol/L | [facility] | | | | | LABORATORY | + + + + + | ANION GAP AGAP | 12 | 5 - 20 mmol/L | [facility] | | | | | LABORATORY | + + + + + | GLUCOSE | 99 | 65 - 99 mg/dL | [facility] | | | | | LABORATORY | + + + + + | BUN | 86 (H) | 8 - 25 mg/dL | [facility] | | | | | LABORATORY | + + + + + | CREATININE | 2.8 (H) | 0.70 - 1.30 mg/dL | [facility] | | | | | LABORATORY | + + + + + | CALCIUM | 9.7 | 8.5 - 10.5 mg/dL | [facility] | | | | | LABORATORY | + + + + + | Albumin | 2.9 (L) | 3.3 - 4.8 g/dL | [facility] | | | | | LABORATORY | + + + + + | PHOSPHORUS | 4.0 | 2.3 - 4.8 mg/dL | [facility] | | | | | LABORATORY | + + + + + | EGFR | 22 (L)Comment: GFR <60: | >60 mL/min/1.73m2 | [facility] | | | CHRONIC KIDNEY DISEASE, | [...] the | | | | | MDRD IDMD traceable | | | | | equation.Testing | | | | | performed at [facility], [facility] [address] | | | | | [facility], | | | | | [place] [address] | | | + + + + + + + + + + | Performing | Address | City/State/Zipcode | Phone Number | | Organization | | | | + + + + + | [facility] | [address] [place] [address] | [place] [address] | [phone] | | LABORATORY | [address] | | | + + + + + Magnesium (01/05/2019 6:12 AM) + + + + + | Component | Value | Ref Range | Performed At | + + + + + | MAGNESIUM | 2.1Comment: Testing | 1.7 - 2.4 mg/dL | [facility] | | | performed at [facility], [address] | | LABORATORY | | | [address], | | | | | [place] [address] | | | + + + + + + + | Specimen | + + | Blood | + + + + + + + | Performing | Address | City/State/Zipcode | Phone Number | | Organization | | | | + + + + + | [facility] | [address] | [place] [address] | [phone] | | LABORATORY | [address] | | | + + + + + CBC W/Auto Diff (Reflex to Manual) (01/05/2019 6:12 AM) + + + + + | [...] Testing | 0.00 - 0.10 K/uL | [facility] | | | performed at [facility], [address] | | LABORATORY | | | [address], | | | | | [place] [address] | | | + + + + + + + | Specimen | + + | Blood | + + + + + + + | Performing | Address | City/State/Zipcode | Phone Number | | Organization | | | | + + + + + | [facility] | [address] | [place] [address] | [phone] | | LABORATORY | [address] | | | + + + + + Renal function panel (01/04/2019 5:49 AM) + + + + + | Component | Value | Ref Range | Performed At | + + + + + | SODIUM | 140 | 135 - 145 mmol/L | [facility] | | | | | LABORATORY | + + + + + | POTASSIUM | 3.4 (L) | 3.5 - 4.9 mmol/L | [facility] | | | | | LABORATORY | + + + + + | CHLORIDE | 98 (L) | 99 - 109 mmol/L | [facility] | | | | | LABORATORY | + + + + + | CO2 | 35 (H) | 23 - 32 mmol/L | [facility] | | | | | LABORATORY | + + + + + | ANION GAP AGAP | 10 | 5 - 20 mmol/L | [facility] [...] + + + + | CREATININE | 2.1 (H) | 0.70 - 1.30 mg/dL | [facility] | | | | | LABORATORY | + + + + + | CALCIUM | 9.7 | 8.5 - 10.5 mg/dL | [facility] | | | | | LABORATORY | + + + + + | Albumin | 3.0 (L) | 3.3 - 4.8 g/dL | [facility] | | | | | LABORATORY | + + + + + | PHOSPHORUS | 3.1 | 2.3 - 4.8 mg/dL | [facility] | | | | | LABORATORY | + + + + + | EGFR | 31 (L)Comment: GFR <60: | >60 mL/min/1.73m2 | [facility] | | | CHRONIC KIDNEY DISEASE, | [...] | | | | | performed at [facility], [address] | | | | | [facility], | | | | | [place] [address] | | | + + + + + + + + + + | Performing | Address | City/State/Zipcode | Phone Number | | Organization | | | | + + + + + | [facility] | [address] | [place] [address] | [phone] | | LABORATORY | [facility]. | | | + + + + + Magnesium (01/04/2019 5:49 AM) + + + + + | Component | Value | Ref Range | Performed At | + + + + + | MAGNESIUM | 2.1Comment: Testing | 1.7 - 2.4 mg/dL | [facility] | | | performed at [facility], [address] | | LABORATORY | | | [address], | | | | | [place] [address] | | | + + + + + + + | Specimen | + + | Blood | + + + + + + + | Performing | Address | City/State/Zipcode | Phone Number | | Organization | | | | + + + + + | [facility] | [address] | [place] [address] | [phone] | | LABORATORY | [address] | | | + + + + + CBC W/Auto Diff (Reflex to Manual) (01/04/2019 5:49 AM) + + + + + | Component | Value | Ref Range | Performed At | + + + + + | WBC | 8.75 | 3.80 - 11.00 K/uL | [facility] | | | | | LABORATORY | + + + + + | RBC | 4.03 (L) | 4.20 - 5.70 M/uL | [facility] | | | | | LABORATORY | + + + + + | HGB | 12.1 (L) | 13.2 - 17.0 g/dL | [facility] | | | | | LABORATORY | + + + + + | HCT | 36.8 (L) | 39.0 - 50.0 % | [facility] | | | | | LABORATORY | + + + + + | MCV | 91.4 | 80.0 - 100.0 fl | [facility] | | | | | LABORATORY | + + + + + | MCH | 29.9 | 27.0 - 34.0 pg | [facility] | | | | | LABORATORY | + + + + + | MCHC | 32.8 | 32.0 - 35.5 g/dL | [facility] | | | | | LABORATORY | + + + + + | RDW SD | 52.5 | 37 - 53 fl | [facility] | | | | | LABORATORY | + + + + + | PLT | 190 | 150 - 400 K/uL | [facility] | | | | | LABORATORY | + + + + + | MPV | 9.2 | fl | [facility] | | | | | LABORATORY | + + + + + | DIFF TYPE | AUTOMATED | | [facility] | | | | | LABORATORY | + + + + + | NEUTROPHILS | 75.27 | % | [facility] | | | | | LABORATORY | + + + + + | LYMPHOCYTES | 5.12 | % | [facility] | | | | | LABORATORY | + + + + + | MONOCYTES | 6.27 | % | [facility] | | | | | LABORATORY | + + + + + | EOSINOPHILS | 12.78 | % | [facility] | | | | | LABORATORY | + + + + + | BASOPHILS | 0.56 | % | [facility] | | | | | LABORATORY | + + + + + | NEUTROPHILS ABS | 6.58 | 1.90 - 7.40 K/uL | [facility] | | | | | LABORATORY | + + + + + | LYMPHOCYTES ABS | 0.45 (L) | 1.00 - 3.90 K/uL | [facility] | | | | | LABORATORY | + + + + + | MONOCYTES ABS | 0.55 | 0.00 - 0.80 K/uL | [facility] | | | | | LABORATORY | + + + + + | EOSINOPHILS ABS | 1.12 (H) | 0.00 - 0.50 K/uL | [facility] | | | | | LABORATORY | + + + + + | BASOPHILS ABS | 0.05Comment: Testing | 0.00 - 0.10 K/uL | [facility] | | | performed at [facility], [address] | | LABORATORY | | | [address], | | | | | [place] [address] | | | + + + + + + + | Specimen | + + | Blood | + + + + + + + | Performing | Address | City/State/Zipcode | Phone Number | | Organization | | | | + + + + + | [facility] | [address] | [place] [address] | [phone] | | LABORATORY | [place] | | | + + + + + Renal function panel (01/03/2019 5:44 AM) + + + + + | Component | Value | Ref Range | Performed At | + + + + + | SODIUM | 142 | 135 - 145 mmol/L | [facility] | | | | | LABORATORY | + + + + + | POTASSIUM | 3.7 | 3.5 - 4.9 mmol/L | [facility] | | | | | LABORATORY | + + + + + | CHLORIDE | 100 | 99 - 109 mmol/L | [facility] | | | | | LABORATORY | + + + + + | CO2 | 32 | 23 - 32 mmol/L | [facility] | | | | | LABORATORY | + + + + + | ANION GAP AGAP | 14 | 5 - 20 mmol/L | [facility] | | | | | LABORATORY | + + + + + | GLUCOSE | 93 | 65 - 99 mg/dL | [facility] [...] + + + + | CALCIUM | 9.6 | 8.5 - 10.5 mg/dL | [facility] | | | | | LABORATORY | + + + + + | Albumin | 2.8 (L) | 3.3 - 4.8 g/dL | [facility] | | | | | LABORATORY | + + + + + | PHOSPHORUS | 3.2 | 2.3 - 4.8 mg/dL | [facility] | | | | | LABORATORY | + + + + + | EGFR | 29 (L)Comment: GFR <60: | >60 mL/min/1.73m2 | [facility] | | | CHRONIC KIDNEY DISEASE, | [...] | | | | | performed at [facility], [address] | | | | | [facility], | | | | | [place] [address] | | | + + + + + + + + + + | Performing | Address | City/State/Zipcode | Phone Number | | Organization | | | | + + + + + | [facility] | [address] | [place] [address] | [phone] | | LABORATORY | [address] | | | + + + + + Magnesium (01/03/2019 5:44 AM) + + + + + | Component | Value | Ref Range | Performed At | + + + + + | MAGNESIUM | 2.3Comment: Testing | 1.7 - 2.4 mg/dL | [facility] | | | performed at [facility], [address] | | LABORATORY | | | [facility], | | | | | [place] [address] | | | + + + + + + + | Specimen | + + | Blood | + + + + + + + | Performing | Address | City/State/Zipcode | Phone Number | | Organization | | | | + + + + + | [facility] | [address] [place] [address] | [place] [address] | [phone] | | LABORATORY | [address] | | | + + + + + CBC W/Auto Diff (Reflex to Manual) (01/03/2019 5:44 AM) + + + + + | Component | Value | Ref Range | Performed At | + + + + + | WBC | 7.89 | 3.80 - 11.00 K/uL | [facility] | | | | | LABORATORY | + + + + + | RBC | 4.00 (L) | 4.20 - 5.70 M/uL | [facility] | | | | | LABORATORY | + + + + + | HGB | 12.0 (L) | 13.2 - 17.0 g/dL | [facility] | | | | | LABORATORY | + + + + + | HCT | 36.7 (L) | 39.0 - 50.0 % | [facility] | | | | | LABORATORY | + + + + + | MCV | 91.6 | 80.0 - 100.0 fl | [facility] | | | | | LABORATORY | + + + + + | MCH | 30.0 | 27.0 - 34.0 pg | [facility] | | | | | LABORATORY | + + + + + | MCHC | 32.8 | 32.0 - 35.5 g/dL | [facility] | | | | | LABORATORY | + + + + + | RDW SD | 53.4 (H) | 37 - 53 fl | [facility] | | | | | LABORATORY | + + + + + | PLT | 195 | 150 - 400 K/uL | [facility] | | | | | LABORATORY | + + + + + | MPV | 9.0 | fl | [facility] | | | | | LABORATORY | + + + + + | DIFF TYPE | AUTOMATED | | [facility] | | | | | LABORATORY | + + + + + | NEUTROPHILS | 73.16 | % | [facility] | | | | | LABORATORY | + + + + + | LYMPHOCYTES | 4.44 | % | [facility] | | | | | LABORATORY | + + + + + | MONOCYTES | 6.90 | % | [facility] | | | | | LABORATORY | + + + + + | EOSINOPHILS | 14.99 | % | [facility] | | | | | LABORATORY | + + + + + | BASOPHILS | 0.51 | % | [facility] | | | | | LABORATORY | + + + + + | NEUTROPHILS ABS | 5.77 | 1.90 - 7.40 K/uL | [facility] | | | | | LABORATORY | + + + + + | LYMPHOCYTES ABS | 0.35 (L) | 1.00 - 3.90 K/uL | [facility] | | | | | LABORATORY | + + + + + | MONOCYTES ABS | 0.54 | 0.00 - 0.80 K/uL | [facility] | | | | | LABORATORY | + + + + + | EOSINOPHILS ABS | 1.18 (H) | 0.00 - 0.50 K/uL | [facility] | | | | | LABORATORY | + + + + + | BASOPHILS ABS | 0.04Comment: Testing | 0.00 - 0.10 K/uL | [facility] | | | performed at [facility], [address] | | LABORATORY | | | [address], | | | | | [place] [address] | | | + + + + + + + | Specimen | + + | Blood | + + + + + + + | Performing | Address | City/State/Zipcode | Phone Number | | Organization | | | | + + + + + | [facility] | [address] | [place] [address] | [phone] | | LABORATORY | [address] | | | + + + + + Renal function panel (01/02/2019 5:52 AM) + + + + + | Component | Value | Ref Range | Performed At | + + + + + | SODIUM | 139 | 135 - 145 mmol/L | [facility] | | | | | LABORATORY | + + + + + | POTASSIUM | 3.5 | 3.5 - 4.9 mmol/L | [facility] | | | | | LABORATORY | + + + + + | CHLORIDE | 97 (L) | 99 - 109 mmol/L | [facility] | | | | | LABORATORY | + + + + + | CO2 | 30 | 23 - 32 mmol/L | [facility] | | | | | LABORATORY | + + + + + | ANION GAP AGAP | 16 | 5 - 20 mmol/L | [facility] | | | | | LABORATORY | + + + + + | GLUCOSE | 92 | 65 - 99 mg/dL | [facility] | | | | | LABORATORY | + + + + + | BUN | 86 (H) | 8 - 25 mg/dL | [facility] | | | | | LABORATORY | + + + + + | CREATININE | 2.9 (H) | 0.70 - 1.30 mg/dL | [...] 4.2 | 2.3 - 4.8 mg/dL | [facility] | | | | | LABORATORY | + + + + + | EGFR | 21 (L)Comment: GFR <60: | >60 mL/min/1.73m2 | [...] the | | | | | MDRD IDMD traceable | | | | | equation.Testing | | | | | performed at [facility], [address] | | | | | [facility], | | | | | [place] [address] | | | + + + + + + + + + + | Performing | Address | City/State/Zipcode | Phone Number | | Organization | | | | + + + + + | [facility] | [address] | [place] [address] | [phone] | | LABORATORY | [address] | | | + + + + + Magnesium (01/02/2019 5:52 AM) + + + + + | Component | Value | Ref Range | Performed At | + + + + + | MAGNESIUM | 2.3Comment: Testing | 1.7 - 2.4 mg/dL | [facility] | | | performed at [facility], [address] | | LABORATORY | | | [facility], | | | | | [place] [address] | | | + + + + + + + | Specimen | + + | Blood | + + + + + + + | Performing | Address | City/State/Zipcode | Phone Number | | Organization | | | | + + + + + | [facility] | [address] | [place] [address] | [phone] | | LABORATORY | [address] | | | + + + + + CBC W/Auto Diff (Reflex to Manual) (01/02/2019 5:52 AM) + + + + + | Component | Value | Ref Range | Performed At | + + + + + | WBC | 8.72 | 3.80 - 11.00 K/uL | [facility] | | | | | LABORATORY | + + + + + | RBC | 4.04 (L) | 4.20 - 5.70 M/uL | [facility] | | | | | LABORATORY | + + + + + | HGB | 11.9 (L) | 13.2 - 17.0 g/dL | [facility] | | | | | LABORATORY | + + + + + | HCT | 37.0 (L) | 39.0 - 50.0 % | [facility] | | | | | LABORATORY | + + + + + | MCV | 91.5 | 80.0 - 100.0 fl | [facility] | | | | | LABORATORY | + + + + + | MCH | 29.5 | 27.0 - 34.0 pg | [facility] | | | | | [facility] | + + + + + | MCHC | 32.2 | 32.0 - 35.5 g/dL | [facility] | | | | | [facility] | + + + + + | RDW SD | 53.4 (H) | 37 - 53 fl | [facility] | | | | | [facility] | + + + + + | PLT | 211 | 150 - 400 K/uL | [facility] | | | | | [facility] | + + + + + | MPV | 9.4 | fl | [facility] | | | | | [facility] | + + + + + | DIFF TYPE | AUTOMATED | | [facility] | | | | | [facility] | + + + + + | NEUTROPHILS | 73.05 | % | [facility] | | | | | [facility] | + + + + + | LYMPHOCYTES | 4.71 | % | [facility] | | | | | [facility] | + + + + + | MONOCYTES | 8.21 | % | [facility] | | | | | [facility] | + + + + + | EOSINOPHILS | 13.03 | % | [facility] | | | | | [facility] | + + + + + | BASOPHILS | 1.00 | % | [facility] | | | | | [facility] | + + + + + | NEUTROPHILS ABS | 6.37 | 1.90 - 7.40 K/uL | [facility] | | | | | [facility] | + + + + + | LYMPHOCYTES ABS | 0.41 (L) | 1.00 - 3.90 K/uL | [facility] | | | | | [facility] | + + + + + | MONOCYTES ABS | 0.72 | 0.00 - 0.80 K/uL | [facility] | | | | | [facility] | + + + + + | EOSINOPHILS ABS | 1.14 (H) | 0.00 - 0.50 K/uL | [facility] | | | | | [facility] | + + + + + | BASOPHILS ABS | 0.09Comment: Testing | 0.00 - 0.10 K/uL | [facility] | | | performed at [facility], [address] | | LABORATORY | | | [address], | | | | | [place] [address] | | | + + + + + + + | Specimen | + + | Blood | + + + + + + + | Performing | Address | City/State/Zipcode | Phone Number | | Organization | | | | + + + + + | [facility] | [address] | [place] [address] | [phone] | | LABORATORY | [address] | | | + + + + + Renal function panel (01/01/2019 5:42 AM) + + + + + | Component | Value | Ref Range | Performed At | + + + + + | SODIUM | 138 | 135 - 145 mmol/L | [facility] | | | | | LABORATORY | + + + + + | POTASSIUM | 3.4 (L) | 3.5 - 4.9 mmol/L | [facility] | | | | | [facility] | + + + + + | CHLORIDE | 93 (L) | 99 - 109 mmol/L | [facility] | | | | | LAB[facility] | + + + + + | CO2 | 33 (H) | 23 - 32 mmol/L | [facility] | | | | | LAB[facility]ORY | + + + + + | ANION GAP AGAP | 15 | 5 - 20 mmol/L | [facility] | | | | | LAB[facility]ORY | + + + + + | GLUCOSE | 97 | 65 - 99 mg/dL | [facility] | | | | | LAB[facility]ORY | + + + + + | BUN | 84 (H) | 8 - 25 mg/dL | [facility] | | | | | LAB[facility]ORY | + + + + + | CREATININE | 3.3 (H) | 0.70 - 1.30 mg/dL | [facility] | | | | | LAB[facility]ORY | + + + + + | CALCIUM | 9.2 | 8.5 - 10.5 mg/dL | [facility] | | | | | [facility] | + + + + + | Albumin | 2.9 (L) | 3.3 - 4.8 g/dL | [facility] | | | | | [facility] | + + + + + | PHOSPHORUS | 4.0 | 2.3 - 4.8 mg/dL | [facility] | | | | | LAB[facility]ORY | + + + + + | EGFR | 18 (L)Comment: GFR <60: | >60 mL/min/1.73m2 | [facility] | | | CHRONIC KIDNEY DISEASE, | [...] the | | | | | MDRD IDMD traceable | | | | | equation.Testing | | | | | performed at [facility], [address] | | | | [facility], | | | | | [place] [address] | | | + + + + + + + | Specimen | + + | Blood | + + + + + + + | Performing | Address | City/State/Zipcode | Phone Number | | Organization | | | | + + + + + | [facility] | [address] | [place] [address] | [phone] | | LABORATORY | [address] | | | + + + + + Magnesium (01/01/2019 5:42 AM) + + + + + | Component | Value | Ref Range | Performed At | + + + + + | MAGNESIUM | 2.3Comment: Testing | 1.7 - 2.4 mg/dL | [facility] | | | performed at [facility] H[facility], [address] | | LABORATORY | | | [facility], | | | | | [place] [address] | | | + + + + + + + | Specimen | + + | Blood | + + + + + + + | Performing | Address | City/State/Zipcode | Phone Number | | Organization | | | | + + + + + | [facility] | [address] | [place] [address] | [phone] | | LABORATORY | [address]vd[address] | | | + + + + + CBC W/Auto Diff (Reflex to Manual) (01/01/2019 5:42 AM) + + + + + | Component | Value | Ref Range | Performed At | + + + + + | WBC | 9.46 | 3.80 - 11.00 K/uL | [facility] | | | | | LABORATORY | + + + + + | RBC | 4.10 (L) | 4.20 - 5.70 M/uL | [facility] | | | | | LABORATORY | + + + + + | HGB | 12.2 (L) | 13.2 - 17.0 g/dL | [facility] | | | | | LABORATORY | + + + + + | HCT | 37.3 (L) | 39.0 - 50.0 % | [facility] | | | | | LABORATORY | + + + + + | MCV | 90.8 | 80.0 - 100.0 fl | [facility] | | | | | LABORATORY | + + + + + | MCH | 29.8 | 27.0 - 34.0 pg | [facility] | | | | | LABORATORY | + + + + + | MCHC | 32.8 | 32.0 - 35.5 g/dL | [facility] | | | | | LABORATORY | + + + + + | RDW SD | 52.5 | 37 - 53 fl | [facility] | | | | | LABORATORY | + + + + + | PLT | 220 | 150 - 400 K/uL | [facility] | | | | | LABORATORY | + + + + + | MPV | 9.3 | fl | [facility] | | | | | LABORATORY | + + + + + | DIFF TYPE | AUTOMATED | | [facility] | | | | | LABORATORY | + + + + + | NEUTROPHILS | 73.95 | % | [facility] | | | | | LABORATORY | + + + + + | LYMPHOCYTES | 4.80 | % | [facility] | | | | | LABORATORY | + + + + + | MONOCYTES | 6.69 | % | [facility] | | | | | LABORATORY | + + + + + | EOSINOPHILS | 13.89 | % | [facility] | | | | | LABORATORY | + + + + + | BASOPHILS | 0.67 | % | [facility] | | | | | LABORATORY | + + + + + | NEUTROPHILS ABS | 6.99 | 1.90 - 7.40 K/uL | [facility] | | | | | LABORATORY | + + + + + | LYMPHOCYTES ABS | 0.45 (L) | 1.00 - 3.90 K/uL | [facility] | | | | | LABORATORY | + + + + + | MONOCYTES ABS | 0.63 | 0.00 - 0.80 K/uL | [facility] | | | | | LABORATORY | + + + + + | EOSINOPHILS ABS | 1.31 (H) | 0.00 - 0.50 K/uL | [facility] | | | | | LABORATORY | + + + + + | BASOPHILS ABS | 0.06Comment: Testing | 0.00 - 0.10 K/uL | [facility] | | | performed at [facility], [address] | | LABORATORY | | | [address], | | | | | [place] [address] | | | + + + + + + + | Specimen | + + | Blood | + + + + + + + | Performing | Address | City/State/Zipcode | Phone Number | | Organization | | | | + + + + + | [facility] | [address] | [place] [address] | [phone] | | LABORATORY | [address] | | | + + + + + PROCALCITONIN (12/31/2018 5:21 AM) + + + + + | Component | Value | Ref Range | Performed At | + + + + + | PROCALCITONIN | 0.16Comment: | <0.5 ng/mL | [facility] | | | INTERPRETIVE [...] performed | | | | | at [facility];[address] [place] [address] | | | | | [facility];[place] [address] | | | + + + + + + + + + + | Performing | Address | City/State/Zipcode | Phone Number | | Organization | | | | + + + + + | [facility] | [address] | [facility] [address] | | + + + + + Renal function panel (12/31/2018 5:21 AM) + + + + + | Component | Value | Ref Range | Performed At | + + + + + | SODIUM | 139 | 135 - 145 mmol/L | [facility] | | | | | LABORATORY | + + + + + | POTASSIUM | 3.6 | 3.5 - 4.9 mmol/L | [facility] | | | | | LABORATORY | + + + + + | CHLORIDE | 96 (L) | 99 - 109 mmol/L | [facility] | | | | | LABORATORY | + + + + + | CO2 | 33 (H) | 23 - 32 mmol/L | [facility] | | | | | LABORATORY | + + + + + | ANION GAP AGAP | 14 | 5 - 20 mmol/L | [facility] | | | | | LABORATORY | + + + + + | GLUCOSE | 92 | 65 - 99 mg/dL | [facility] | | | | | LABORATORY | + + + + + | BUN | 77 (H) | 8 - 25 mg/dL | [facility] | | | | | LABORATORY | + + + + + | CREATININE | 3.0 (H) | 0.70 - 1.30 mg/dL | [facility] | | | | | LABORATORY | + + + + + | CALCIUM | 9.1 | 8.5 - 10.5 mg/dL | [facility] | | | | | LABORATORY | + + + + + | Albumin | 3.0 (L) | 3.3 - 4.8 g/dL | [facility] | | | | | LABORATORY | + + + + + | PHOSPHORUS | 4.6 | 2.3 - 4.8 mg/dL | [facility] | | | | | LABORATORY | + + + + + | EGFR | 20 (L)Comment: GFR <60: | >60 mL/min/1.73m2 | [facility] | | | CHRONIC KIDNEY DISEASE, | [...] | | | | | performed at [facility], [address] | | | | | [facility], | | | | | [place] [address] | | | + + + + + + + + + + | Performing | Address | City/State/Zipcode | Phone Number | | Organization | | | | + + + + + | [facility] | [address] | [place] [address] | [phone] | | LABORATORY | [address] | | | + + + + + Magnesium (12/31/2018 5:21 AM) + + + + + | Component | Value | Ref Range | Performed At | + + + + + | MAGNESIUM | 2.5 (H)Comment: Testing | 1.7 - 2.4 mg/dL | [facility] | | | performed at [facility], [address] | | LABORATORY | | | [address] [facility], | | | | | [place] [address] | | | + + + + + + + | Specimen | + + | Blood | + + + + + + + | Performing | Address | City/State/Zipcode | Phone Number | | Organization | | | | + + + + + | [facility] | [address] | [place] [address] | [phone] | | LABORATORY | [address] | | | + + + + + CBC W/Auto Diff (Reflex to Manual) (12/31/2018 5:21 AM) + + + + + | Component | Value | Ref Range | Performed At | + + + + + | WBC | 9.69 | 3.80 - 11.00 K/uL | [facility] | | | | | LABORATORY | + + + + + | RBC | 4.25 | 4.20 - 5.70 M/uL | [facility] | | | | | LABORATORY | + + + + + | HGB | 12.7 (L) | 13.2 - 17.0 g/dL | [facility] | | | | | LABORATORY | + + + + + | HCT | 38.7 (L) | 39.0 - 50.0 % | [facility] | | | | | LABORATORY | + + + + + | MCV | 91.1 | 80.0 - 100.0 fl | [facility] | | | | | LABORATORY | + + + + + | MCH | 29.8 | 27.0 - 34.0 pg | [facility] | | | | | LABORATORY | + + + + + | MCHC | 32.7 | 32.0 - 35.5 g/dL | [facility] | | | | | LABORATORY | + + + + + | RDW SD | 52.9 | 37 - 53 fl | [facility] | | | | | LABORATORY | + + + + + | PLT | 220 | 150 - 400 K/uL | [facility] | | | | | LABORATORY | + + + + + | MPV | 9.1 | fl | [facility] | | | | | LABORATORY | + + + + + | DIFF TYPE | AUTOMATED | | [facility] | | | | | LABORATORY | + + + + + | NEUTROPHILS | 74.32 | % | [facility] | | | | | LABORATORY | + + + + + | LYMPHOCYTES | 4.30 | % | [facility] | | | | | LABORATORY | + + + + + | MONOCYTES | 7.35 | % | [facility] | | | | | LABORATORY | + + + + + | EOSINOPHILS | 13.38 | % | [facility] | | | | | LABORATORY | + + + + + | BASOPHILS | 0.65 | % | [facility] | | | | | LABORATORY | + + + + + | NEUTROPHILS ABS | 7.20 | 1.90 - 7.40 K/uL | [facility] | | | | | LABORATORY | + + + + + | LYMPHOCYTES ABS | 0.42 (L) | 1.00 - 3.90 K/uL | [facility] | | | | | LABORATORY | + + + + + | MONOCYTES ABS | 0.71 | 0.00 - 0.80 K/uL | [facility] | | | | | LABORATORY | + + + + + | EOSINOPHILS ABS | 1.30 (H) | 0.00 - 0.50 K/uL | [facility] | | | | | LABORATORY | + + + + + | BASOPHILS ABS | 0.06Comment: Testing | 0.00 - 0.10 K/uL | [facility] | | | performed at [facility], [address] | | LABORATORY | | | [place], | | | | | [place] [address] | | | + + + + + + + | Specimen | + + | Blood | + + + + + + + | Performing | Address | City/State/Zipcode | Phone Number | | Organization | | | | + + + + + | [facility] | [address] [place] [address] | [place] [address] | [phone] | | LABORATORY | [address] | | | + + + + + US LULU resting (12/30/2018 12:31 PM) + + + [...] 130 LULU: 1.14 Waveforms: Triphasic Great toe: | | [...] | + + + + + | [facility] | [address] [facility] | [place] [address] | | + + + + + Renal function panel (12/30/2018 5:28 AM) + + + + + | Component | Value | Ref Range | Performed At | + + + + + | SODIUM | 139 | 135 - 145 mmol/L | [facility] | | | | | LABORATORY | + + + + + | POTASSIUM | 3.3 (L) | 3.5 - 4.9 mmol/L | [facility] | | | | | LABORATORY | + + + + + | CHLORIDE | 94 (L) | 99 - 109 mmol/L | [facility] | | | | | LABORATORY | + + + + + | CO2 | 34 (H) | 23 - 32 mmol/L | [facility] | | | | | LABORATORY | + + + + + | ANION GAP AGAP | 14 | 5 - 20 mmol/L | [facility] | | | | | LABORATORY | + + + + + | GLUCOSE | 93 | 65 - 99 mg/dL | [facility] | | | | | LABORATORY | + + + + + | BUN | 65 (H) | 8 - 25 mg/dL | [facility] | | | | | LABORATORY | + + + + + | CREATININE | 2.7 (H) | 0.70 - 1.30 mg/dL | [facility] | | | | | LABORATORY | + + + + + | CALCIUM | 8.9 | 8.5 - 10.5 mg/dL | [facility] | | | | | LABORATORY | + + + + + | Albumin | 3.0 (L) | 3.3 - 4.8 g/dL | [facility] | | | | | LAB[facility]ATORY | + + + + + | PHOSPHORUS | 3.8 | 2.3 - 4.8 mg/dL | [facility] | | | | | LABORATORY | + + + + + | EGFR | 23 (L)Comment: GFR <60: | >60 mL/min/1.73m2 | [facility] | | | CHRONIC KIDNEY DISEASE, | [...] | | | | | performed at [facility], [address] | | | | | [facility], | | | | | [place] [address] | | | + + + + + + + + + + | Performing | Address | City/State/Zipcode | Phone Number | | Organization | | | | + + + + + | [facility] | [address] [place] [address] | [place] [address] | [phone] | | LABORATORY | [address]. | | | + + + + + Magnesium (12/30/2018 5:28 AM) + + + + + | Component | Value | Ref Range | Performed At | + + + + + | MAGNESIUM | 1.9Comment: Testing | 1.7 - 2.4 mg/dL | [facility] | | | performed at [facility], [facility] [address] | | LABORATORY | | | [facility], | | | | | [place] [address] | | | + + + + + + + | Specimen | + + | Blood | + + + + + + + | Performing | Address | City/State/Zipcode | Phone Number | | Organization | | | | + + + + + | [facility] | [address] | [place] [address] | [phone] | | LABORATORY | [address] | | | + + + + + CBC W/Auto Diff (Reflex to Manual) (12/30/2018 5:28 AM) + + + + + | Component | Value | Ref Range | Performed At | + + + + + | WBC | 9.71 | 3.80 - 11.00 K/uL | [facility] | | | | | LABORATORY | + + + + + | RBC | 4.17 (L) | 4.20 - 5.70 M/uL | [facility] | | | | | LABORATORY | + + + + + | HGB | 12.5 (L) | 13.2 - 17.0 g/dL | [facility] | | | | | LABORATORY | + + + + + | HCT | 38.0 (L) | 39.0 - 50.0 % | [facility] | | | | | LABORATORY | + + + + + | MCV | 91.1 | 80.0 - 100.0 fl | [facility] | | | | | LABORATORY | + + + + + | MCH | 29.8 | 27.0 - 34.0 pg | [facility] | | | | | LABORATORY | + + + + + | MCHC | 32.7 | 32.0 - 35.5 g/dL | [facility] | | | | | LABORATORY | + + + + + | RDW SD | 52.9 | 37 - 53 fl | [facility] | | | | | LABORATORY | + + + + + | PLT | 210 | 150 - 400 K/uL | [facility] | | | | | LABORATORY | + + + + + | MPV | 9.4 | fl | [facility] | | | | | LABORATORY | + + + + + | DIFF TYPE | AUTOMATED | | [facility] | | | | | LABORATORY | + + + + + | NEUTROPHILS | 77.17 | % | [facility] | | | | | LABORATORY | + + + + + | LYMPHOCYTES | 4.84 | % | [facility] | | | | | LABORATORY | + + + + + | MONOCYTES | 8.10 | % | [facility] | | | | | LABORATORY | + + + + + | EOSINOPHILS | 9.40 | % | [facility] | | | | | LABORATORY | + + + + + | BASOPHILS | 0.49 | % | [facility] | | | | | LABORATORY | + + + + + | NEUTROPHILS ABS | 7.49 (H) | 1.90 - 7.40 K/uL | [facility] | | | | | LABORATORY | + + + + + | LYMPHOCYTES ABS | 0.47 (L) | 1.00 - 3.90 K/uL | [facility] | | | | | LABORATORY | + + + + + | MONOCYTES ABS | 0.79 | 0.00 - 0.80 K/uL | [facility] | | | | | LABORATORY | + + + + + | EOSINOPHILS ABS | 0.91 (H) | 0.00 - 0.50 K/uL | [facility] | | | | | LABORATORY | + + + + + | BASOPHILS ABS | 0.05Comment: Testing | 0.00 - 0.10 K/uL | [facility] | | | performed at [facility], [address] | | LABORATORY | | | [place] [place], | | | | | [place] [address] | | | + + + + + + + | Specimen | + + | Blood | + + + + + + + | Performing | Address | City/State/Zipcode | Phone Number | | Organization | | | | + + + + + | [facility] | [address] | [place] [address] | [phone] | | LABORATORY | [address] | | | + + + + + Magnesium (12/29/2018 5:55 AM) + + + + + | Component | Value | Ref Range | Performed At | + + + + + | MAGNESIUM | 1.9Comment: Testing | 1.7 - 2.4 mg/dL | [facility] | | | performed at [facility], [address] | | LABORATORY | | | [address], | | | | | [place] [address] | | | + + + + + + + | Specimen | + + | Blood | + + + + + + + | Performing | Address | City/State/Zipcode | Phone Number | | Organization | | | | + + + + + | [facility] | [address] | [place] [address] | [phone] | | LABORATORY | [address] | | | + + + + + Basic metabolic panel (12/29/2018 5:55 AM) + + + + + | [...] | | | | | performed at [facility], [address] | | | | | [place], | | | | | [place] [address] | | | + + + + + + + | Specimen | + + | Blood | + + + + + + + | Performing | Address | City/State/Zipcode | Phone Number | | Organization | | | | + + + + + | [facility] | [address] | [place] [address] | [phone] | | LABORATORY | [address] | | | + + + + + CBC W/Auto Diff (Reflex to Manual) (12/29/2018 5:55 AM) + + + + + | Component | Value | Ref Range | Performed At | + + + + + | WBC | 10.15 | 3.80 - 11.00 K/uL | [facility] | | | | | LABORATORY | + + + + + | RBC | 4.04 (L) | 4.20 - 5.70 M/uL | [facility] | | | | | LABORATORY | + + + + + | HGB | 12.0 (L) | 13.2 - 17.0 g/dL | [facility] | | | | | LABORATORY | + + + + + | HCT | 36.8 (L) | 39.0 - 50.0 % | [facility] | | | | | LABORATORY | + + + + + | MCV | 91.2 | 80.0 - 100.0 fl | [facility] | | | | | LABORATORY | + + + + + | MCH | 29.8 | 27.0 - 34.0 pg | [facility] | | | | | LABORATORY | + + + + + | MCHC | 32.7 | 32.0 - 35.5 g/dL | [facility] | | | | | LABORATORY | + + + + + | RDW SD | 53.8 (H) | 37 - 53 fl | [facility] | | | | | LABORATORY | + + + + + | PLT | 197 | 150 - 400 K/uL | [facility] | | | | | LABORATORY | + + + + + | MPV | 9.0 | fl | [facility] | | | | | LABORATORY | + + + + + | DIFF TYPE | AUTOMATED | | [facility] | | | | | LABORATORY | + + + + + | NEUTROPHILS | 80.14 | % | [facility] | | | | | LABORATORY | + + + + + | LYMPHOCYTES | 3.33 | % | [facility] | | | | | LABORATORY | + + + + + | MONOCYTES | 6.85 | % | [facility] | | | | | LABORATORY | + + + + + | EOSINOPHILS | 9.06 | % | [facility] | | | | | LABORATORY | + + + + + | BASOPHILS | 0.62 | % | [facility] | | | | | LABORATORY | + + + + + | NEUTROPHILS ABS | 8.13 (H) | 1.90 - 7.40 K/uL | [facility] | | | | | LABORATORY | + + + + + | LYMPHOCYTES ABS | 0.34 (L) | 1.00 - 3.90 K/uL | [facility] | | | | | LABORATORY | + + + + + | MONOCYTES ABS | 0.70 | 0.00 - 0.80 K/uL | [facility] | | | | | LABORATORY | + + + + + | EOSINOPHILS ABS | 0.92 (H) | 0.00 - 0.50 K/uL | [facility] | | | | | LABORATORY | + + + + + | BASOPHILS ABS | 0.06Comment: Testing | 0.00 - 0.10 K/uL | [facility] | | | performed at [facility], [address] | | LABORATORY | | | [address], | | | | | [place] [address] | | | + + + + + + + | Specimen | + + | Blood | + + + + + + + | Performing | Address | City/State/Zipcode | Phone Number | | Organization | | | | + + + + + | [facility] | [address] | [place] [address] | [phone] | | LABORATORY | [address] | | [...] + + | Performing | Address | City/State/[facility] Cent[facility] | Phone Number | | Organization | | | | + + + + + | [facility] | [address] | [place] [address] | | + + + + + NM cardiovascular stress treadmill (12/28/2018 12:54 PM) + + + + + | Component | Value | Ref Range | Performed At | + + + + + | Diagnosis | Non diagnostic | | [facility] EKG | | | pharmacological [...] | + + + + + | [facility] | [address] [facility]. | [place] [address] | | + + + + + Magnesium (12/28/2018 5:18 AM) + + + + + | Component | Value | Ref Range | Performed At | + + + + + | MAGNESIUM | 1.7Comment: Testing | 1.7 - 2.4 mg/dL | [facility] | | | performed at [facility], [address] | | LABORATORY | | | [place], | | | | | [place] [address] | | | + + + + + + + | Specimen | + + | Blood | + + + + + + + | Performing | Address | City/State/Zipcode | Phone Number | | Organization | | | | + + + + + | [facility] | [address] [facility] | [place] [address] | [phone] | | LABORATORY | [address] | | | + + + + + Basic metabolic panel (12/28/2018 5:18 AM) + + + + + | Component | Value | Ref Range | Performed At | + + + + + | SODIUM | 143 | 135 - 145 mmol/L | [facility] | | | | | LABORATORY | + + + + + | POTASSIUM | 4.3 | 3.5 - 4.9 mmol/L | [facility] | | | | | LABORATORY | + + + + + | CHLORIDE | 106 | 99 - 109 mmol/L | [facility] | | | | | LABORATORY | + + + + + | CO2 | 28 | 23 - 32 mmol/L | [facility] | | | | | LABORATORY | + + + + + | ANION GAP AGAP | 13 | 5 - 20 mmol/L | [facility] | | | | | LABORATORY | + + + + + | GLUCOSE | 88 | 65 - 99 mg/dL | [facility] | | | | | LABORATORY | + + + + + | BUN | 40 (H) | 8 - 25 mg/dL | [facility] | | | | | LABORATORY | + + + + + | CREATININE | 2.0 (H) | 0.70 - 1.30 mg/dL | [facility] | | | | | LABORATORY | + + + + + | BUN/CREAT | 20 | | [facility] | | | | | LABORATORY | + + + + + | CALCIUM | 9.1 | 8.5 - 10.5 mg/dL | [facility] | | | | | LABORATORY | + + + + + | EGFR | 32 (L)Comment: GFR <60: | >60 mL/min/1.73m2 | [...] the | | | | | MDRD IDMD traceable | | | | | equation.Testing | | | | | performed at [facility], [address] | | | | | [facility], | | | | | [place] [address] | | | + + + + + + + | Specimen | + + | Blood | + + + + + + + | Performing | Address | City/State/Zipcode | Phone Number | | Organization | | | | + + + + + | [facility] | [address] [facility] | [place] [address] | [phone] | | LABORATORY | [address] | | | + + + + + CBC W/Auto Diff (Reflex to Manual) (12/28/2018 5:18 AM) + + + + + | Component | Value | Ref Range | Performed At | + + + + + | WBC | 8.35 | 3.80 - 11.00 K/uL | [facility] | | | | | LABORATORY | + + + + + | RBC | 3.40 (L) | 4.20 - 5.70 M/uL | [facility] | | | | | LABORATORY | + + + + + | HGB | 10.4 (L) | 13.2 - 17.0 g/dL | [facility] | | | | | LABORATORY | + + + + + | HCT | 30.9 (L) | 39.0 - 50.0 % | [facility] | | | | | LABORATORY | + + + + + | MCV | 91.1 | 80.0 - 100.0 fl | [facility] | | | | | LABORATORY | + + + + + | MCH | 30.6 | 27.0 - 34.0 pg | [facility] | | | | | LABORATORY | + + + + + | MCHC | 33.6 | 32.0 - 35.5 g/dL | [facility] | | | | | LABORATORY | + + + + + | RDW SD | 53.4 (H) | 37 - 53 fl | [facility] | | | | | LABORATORY | + + + + + | PLT | 165 | 150 - 400 K/uL | [facility] | | | | | LABORATORY | + + + + + | MPV | 8.8 | fl | [facility] | | | | | LABORATORY | + + + + + | DIFF TYPE | AUTOMATED | | [facility] | | | | | LABORATORY | + + + + + | NEUTROPHILS | 81.99 | % | [facility] | | | | | LABORATORY | + + + + + | LYMPHOCYTES | 3.46 | % | [facility] | | | | | LABORATORY | + + + + + | MONOCYTES | 6.33 | % | [facility] | | | | | LABORATORY | + + + + + | EOSINOPHILS | 7.63 | % | [facility] | | | | | LABORATORY | + + + + + | BASOPHILS | 0.59 | % | [facility] | | | | | LABORATORY | + + + + + | NEUTROPHILS ABS | 6.85 | 1.90 - 7.40 K/uL | [facility] | | | | | LABORATORY | + + + + + | LYMPHOCYTES ABS | 0.29 (L) | 1.00 - 3.90 K/uL | [facility] | | | | | LABORATORY | + + + + + | MONOCYTES ABS | 0.53 | 0.00 - 0.80 K/uL | [facility] | | | | | LABORATORY | + + + + + | EOSINOPHILS ABS | 0.64 (H) | 0.00 - 0.50 K/uL | [facility] | | | | | LABORATORY | + + + + + | BASOPHILS ABS | 0.05Comment: Testing | 0.00 - 0.10 K/uL | [facility] | | | performed at [facility], [address] | | LABORATORY | | | [address], | | | | | [place] [address] | | | + + + + + + + | Specimen | + + | Blood | + + + + + + + | Performing | Address | City/State/Zipcode | Phone Number | | Organization | | | | + + + + + | [facility] | [address] | [place] [address] | [phone] | | LABORATORY | [address] | | | + + + + + Reticulocyte count (12/27/2018 4:43 PM) + + + + + | Component | Value | Ref Range | Performed At | + + + + + | RETICULOCYTES | 1.4Comment: Testing | 0.4 - 2.7 % | [facility] | | | performed at [facility];[address] | | | | | [facility];[place] | | | | | [address] | | | + + + + + + + + + + | Performing | Address | City/State/Zipcode | Phone Number | | Organization | | | | + + + + + | [facility] | [address] | [place] [address] | | + + + + + Echo cardiac adult complete (12/27/2018 9:01 AM) + +-------+ + + | Component | Value | Ref Range | Performed At | + +-------+ + + | LV EF | 65 | 50 - 70 % | [facility] | | | | | RADIOLOGY | + +-------+ + + + + + | Impressions | Performed At | + + + | 1. This was a technically difficult study with suboptimal views. 2. | [facility] | | Adequate EF 3. Severe bi-atrial enlargement. | RADIOLOGY | + + + + + + | Narrative | Performed At | + + + | Patient Name: Michael Joshi Date of : 1940 | DONNA | | Performing Physician: Pedrito | RADIOLOGY | | [place] | | | | | | ------REPORT ADDENDED------ INDICATIONS acute SC | | | CONCLUSIONS 1. This was [...] | | calcified. Aortic Valve: There is tnzw-ek-sqngajpt aortic | | | regurgitation. Mitral Valve: [...] | | mmHg TR Vmax: 3.49 m/s Crane Follower: ROSY Authenticated by: | | | Pedrito Taylor MD Report Date/Time: 12-27-2018 13:58:10 | | + + + + + | Procedure Note | + + | Edgardo Piper In - 12/27/2018 1:58 PM PDT Patient Name: Kel Joshi of | | : 1940Accession: [id number] Physician: Pedrito Taylor | | ------REPORT | [...] is mildly calcified. Aortic Valve: There is lchs-wj-lxhndqcg aortic | | regurgitation.Mitral Valve: Mild mitral [...] mlLAESV Index (A-L): 109.85 ml/m2LAAs A2C: 64.13 [id number] A-L A2C: 351.26 | | mlLALs A2C: 9.93 cmLAAs A4C: 45.52 [id number] A-L A4C: 173.98 mlLALs A4C: 10.11 | | cmTAPSE: 1.10 cmHR: 80.22 BPMAV maxP.70 mmHgAV meanP.31 mmHgAV Vmax: | | 1.55 m/Davie Vmean: 1.10 m/Davie VTI: 33.13 cmAVA Vmax: 2.73 cm2AVA (VTI): 2.82 | | [id number] Vmax: 0.00 cm2/m2AVAI (VTI): 0.00 cm2/m2LVCI Dopp: 2.84 l/ejov0FINN Dopp: | | 6.45 l/minHR: 68.91 BPMLVOT [...] |TR Vmax: 3.49 m/s | | | |Crane Follower: MW | |Authenticated by: Pedrito Taylor MD [...] | + + + + + | [facility] | [address] | [place] [address] | | + + + + + Troponin I (12/27/2018 7:51 AM) + + + + + | Component | Value | Ref Range | Performed At | + + + + + | TROPONIN I | 0.046 (H)Comment: 0.04 | 0.00 - 0.04 ng/mL | [facility] | | | ng/mL [...] performed | | | | | at [facility] [address] | | | | | staci;[place] [address] | | | + + + + + + + | Specimen | + + | Blood | + + + + + + + | Performing | Address | City/State/Zipcode | Phone Number | | Organization | | | | + + + + + | [facility] | [address] | [place] [address] | | + + + + + Brain natriuretic peptide (12/27/2018 5:31 AM) + + + + + | Component | Value | Ref Range | Performed At | + + + + + | BRAIN NATRIURETIC | 471.32 (H)Comment: | 0 - 100 pg/mL | [facility] | | PEPTIDE | Testing performed at | | | | | [facility];[address] | [address];[place] [address] | | | + + + + + + + | Specimen | + + | Blood | + + + + + + + | Performing | Address | City/State/Zipcode | Phone Number | | Organization | | | | + + + + + | [facility] | [address] | [facility] [place] [address] | | + + + + + Antwan youssef (12/27/2018 5:17 AM) + + + + [...] | | | | | [place] [address] | | | + + + + + + + | Specimen | + + | Blood | + + + + + + + | Performing | Address | City/State/Zipcode | Phone Number | | Organization | | | | + + + + + | [facility] | [address] | [place] [address] | [phone] | | LABORATORY | [address] | | | + + + + + Ferritin (12/27/2018 5:17 AM) + + + + + | Component | Value | Ref Range | Performed At | + + + + + | FERRITIN | 33Comment: Testing | 11 - 450 ng/mL | [facility] | | | performed at [facility], [address] | | LABORATORY | | | [facility] [place], | | | | | [place] [address] | | | + + + + + + + | Specimen | + + | Blood | + + + + + + + | Performing | Address | City/State/Zipcode | Phone Number | | Organization | | | | + + + + + | [facility] | [address] | [place] [address] | [phone] | | LABORATORY | [address]vd[address] | | | + + + + + Troponin I (12/27/2018 5:17 AM) + + + + + | Component | Value | Ref Range | Performed At | + + + + + | TROPONIN I | 0.048 (H)Comment: 0.04 | 0.00 - 0.04 ng/mL | [facility] | | | ng/mL [...] performed | | | | | at [facility] | | | | | [place] [address] | | | + + + + + + + | Specimen | + + | Blood | + + + + + + + | Performing | Address | City/State/Zipcode | Phone Number | | Organization | | | | + + + + + | [facility] | [address] | [place] [address] | | + + + + + Glycohemoglobin A1c (12/27/2018 5:17 AM) + + + + + | Component | Value | Ref Range | Performed At | + + + + + | HEMOGLOBIN A1C | 5.5Comment: HbA1c method | 4.0 - 6.0 % | [facility] | | | is certified by [facility] | | LABORATORY | | | and [...] | | | | | performed at [facility], [address] | | | | | [facility], | | | | | [place] [address] | | | + + + + + + + | Specimen | + + | Blood | + + + + + + + | Performing | Address | City/State/Zipcode | Phone Number | | Organization | | | | + + + + + | [facility] | [address] [place] [address] | [place] [address] | [phone] | | LABORATORY | [address] | | | + + + + + TSH (12/27/2018 5:17 AM) + + + + + | Component | Value | Ref Range | Performed At | + + + + + | TSH | 1.500Comment: Testing | 0.450 - 5.100 uIU/mL | [facility] | | | performed at [facility], [address] | | LABORATORY | | | [facility], | | | | | [place] [address] | | | + + + + + + + | Specimen | + + | Blood | + + + + + + + | Performing | Address | City/State/Zipcode | Phone Number | | Organization | | | | + + + + + | [facility] | [address] | [place] [address] | [phone] | | LABORATORY | [address]vd. | | [...] | [facility] | | | performed at [facility], [address] | | LABORATORY | | | [place], | | | | | [place] [address] | | | + + + + + + + | Specimen | + + | Blood | + + + + + + + | Performing | Address | City/State/Zipcode | Phone Number | | Organization | | | | + + + + + | [facility] | [address] | [place] [address] | [phone] | | LABORATORY | [address] | | [...] (L) | 23 - 32 mmol/L | [facility] | | | | | LABORATORY | [...] | | | | | performed at [facility], [address] | | | | | [place], | | | | | [place] [address] | | | + + + + + + + | Specimen | + + | Blood | + + + + + + + | Performing | Address | City/State/Zipcode | Phone Number | | Organization | | | | + + + + + | [facility] | [address] | [place] [address] | [phone] | | LABORATORY | [address] | | | + + + + + Phosphorus (12/27/2018 5:17 AM) + + + + + | Component | Value | Ref Range | Performed At | + + + + + | PHOSPHORUS | 3.2Comment: Testing | 2.3 - 4.8 mg/dL | [facility] | | | performed at [facility], [address] | | LABORATORY | | | [place], | | | | | [place] [address] | | | + + + + + + + | Specimen | + + | Blood | + + + + + + + | Performing | Address | City/State/Zipcode | Phone Number | | Organization | | | | + + + + + | [facility] | [address] | [place] [address] | [phone] | | LABORATORY | [address] | | | + + + + + Magnesium (12/27/2018 5:17 AM) + + + + + | Component | Value | Ref Range | Performed At | + + + + + | MAGNESIUM | 2.0Comment: Testing | 1.7 - 2.4 mg/dL | [facility] | | | performed at [facility], [address] | | LABORATORY | | | [facility], | | | | | [place] [address] | | | + + + + + + + | Specimen | + + | Blood | + + + + + + + | Performing | Address | City/State/Zipcode | Phone Number | | Organization | | | | + + + + + | [facility] | [address] | [place] [address] | [phone] | | LABORATORY | [address] | | | + + + + + CBC W/Auto Diff (Reflex to Manual) (12/27/2018 5:17 AM) + + + + + | Component | Value | Ref Range | Performed At | + + + + + | WBC | 7.62 | 3.80 - 11.00 K/uL | [facility] | | | | | LABORATORY | + + + + + | RBC | 3.28 (L) | 4.20 - 5.70 M/uL | [facility] | | | | | LABORATORY | + + + + + | HGB | 9.8 (L) | 13.2 - 17.0 g/dL | [facility] | | | | | LABORATORY | + + + + + | HCT | 30.0 (L) | 39.0 - 50.0 % | [facility] | | | | | LABORATORY | + + + + + | MCV | 91.3 | 80.0 - 100.0 fl | [facility] | | | | | LABORATORY | + + + + + | MCH | 30.0 | 27.0 - 34.0 pg | [facility] | | | | | LABORATORY | + + + + + | MCHC | 32.8 | 32.0 - 35.5 g/dL | [facility] | | | | | LABORATORY | + + + + + | RDW SD | 54.3 (H) | 37 - 53 fl | [facility] | | | | | LABORATORY | + + + + + | PLT | 164 | 150 - 400 K/uL | [facility] | | | | | LABORATORY | + + + + + | MPV | 9.1 | fl | [facility] | | | | | LABORATORY | + + + + + | DIFF TYPE | AUTOMATED | | [facility] | | | | | LABORATORY | + + + + + | NEUTROPHILS | 79.31 | % | [facility] | | | | | LABORATORY | + + + + + | LYMPHOCYTES | 6.00 | % | [facility] | | | | | LABORATORY | + + + + + | MONOCYTES | 6.89 | % | [facility] | | | | | LABORATORY | + + + + + | EOSINOPHILS | 7.17 | % | [facility] | | | | | LABORATORY | + + + + + | BASOPHILS | 0.63 | % | [facility] | | | | | LABORATORY | + + + + + | NEUTROPHILS ABS | 6.04 | 1.90 - 7.40 K/uL | [facility] | | | | | LABORATORY | + + + + + | LYMPHOCYTES ABS | 0.46 (L) | 1.00 - 3.90 K/uL | [facility] | | | | | LABORATORY | + + + + + | MONOCYTES ABS | 0.53 | 0.00 - 0.80 K/uL | [facility] | | | | | LABORATORY | + + + + + | EOSINOPHILS ABS | 0.55 (H) | 0.00 - 0.50 K/uL | [facility] | | | | | LABORATORY | + + + + + | BASOPHILS ABS | 0.05Comment: Testing | 0.00 - 0.10 K/uL | [facility] | | | performed at [facility], [facility] [address] | | LABORATORY | | | [address] [place], | | | | | [place] [address] | | | + + + + + + + | Specimen | + + | Blood | + + + + + + + | Performing | Address | City/State/Zipcode | Phone Number | | Organization | | | | + + + + + | [facility] | [address] | [place] [address] | [phone] | | LABORATORY | [address] | | [...] + + + + | Calculated R [place] | 10 | degrees | [facility] | + + + + + | Calculated T [place] | 0 | degrees | [facility] E[facility] | + + + + + | Diagnosis | Junctional | | [facility] EKG | | | rhythmVentricular demand | [...] | + + + + + | [facility] | [address] | [place] [address] | | + + + + + in this encounter Visit Diagnoses + + | Diagnosis | + + | IZZY (acute kidney injury) (HCC) - Primary | + + | Acute kidney failure, unspecified | + + | Hypervolemia, unspecified hypervolemia type | + + | SOB (shortness of breath) | + + | Shortness of breath | + + | Chronic atrial fibrillation (HCC) | + + | Atrial fibrillation | + + | Cardiac pacemaker in situ | + + | Bilateral lower extremity edema | + + | Edema | + + | CKD (chronic kidney disease) stage 3, GFR 30-59 ml/min (HCC) | + + | Chronic kidney disease, Stage III (moderate) | + + | Essential hypertension, benign | + + | Pulmonary hypertension (HCC) | + + | Other chronic pulmonary heart diseases | + + | Right heart failure (HCC) | + + | Congestive heart failure, unspecified | + + | Chronic diastolic heart failure (HCC) | + + | Chronic diastolic heart failure | + + | NEETU (obstructive sleep apnea) | + + | Obstructive sleep apnea (adult) (pediatric) | + + Admitting Diagnoses + + | Diagnosis | + + | Hypervolemia, unspecified hypervolemia type | + + | Dyspnea | + + | Elevated troponin | + + Administered Medications + +--------+---------+------+------+------+ | Medication Order | MAR | Action | Dose | Rate | Site | | | Action | Date | | | | + +--------+---------+------+------+------+ + +---+ | acetaminophen (TYLENOL) | | | suppository 650 mg 650 mg, | | | Rectal, Every 6 Hours PRN, Mild | | | Pain (1-3), Fever, Starting Sun | | | 12/27/18 at 0401 | | + +---+ | | | + +---+ + +-------+ +--------+---+---+ | acetaminophen (TYLENOL) tablet | Given | | 650 mg | | | | 650 mg 650 mg, Oral, Every 6 | | 9 18:35 | | | | | Hours PRN, Mild Pain (1-3), | | PDT | | | | | Fever, Starting 12/27/18 at | | | | | | | 0401 | | | | | | + +-------+ +--------+---+---+ +-------+ +--------+---+---+ | Given | | 650 mg | | | | | 9 11:54 | | | | | | PDT | | | | +-------+ +--------+---+---+ +---+---+ | | | +---+---+ + +-------+ +--------+---+---+ | allopurinol (ZYLOPRIM) tablet | Given | | 200 mg | | | | 200 mg 200 mg, Oral, Daily, | | 9 08:50 | | | | | First dose on 12/27/18 at 0900 | | PDT | | | | + +-------+ +--------+---+---+ +-------+ +--------+---+---+ | Given | | 200 mg | | | | | 9 09:36 | | | | | | PDT | | | | +-------+ +--------+---+---+ | Given | | 200 mg | | | | | 9 08:51 | | | | | | PDT | | | | +-------+ +--------+---+---+ +---+---+ | | | +---+---+ + +-------+ +-------+---+---+ | amLODIPine (NORVASC) tablet 10 | Given | | 10 mg | | | | mg 10 mg, Oral, Daily, First | | 9 13:31 | | | | | dose on 12/27/18 at 0900 | | PDT | | | | + +-------+ +-------+---+---+ +-------+ +-------+---+---+ | Given | | 10 mg | | | | | 9 16:22 | | | | | | PDT | | | | +-------+ +-------+---+---+ | Given | | 10 mg | | | | | 9 09:25 | | | | | | PDT | | | | +-------+ +-------+---+---+ +---+---+ | | | +---+---+ + +-------+ +------+---+---+ | amLODIPine (NORVASC) tablet 5 | Given | | 5 mg | | | | mg 5 mg, Oral, Daily, First dose | | 9 08:09 | | | | | on 12/30/18 at 0900 | | PDT | | | | + +-------+ +------+---+---+ +-------+ +------+---+---+ | Given | | 5 mg | | | | | 9 08:41 | | | | | | PDT | | | | +-------+ +------+---+---+ + +---+ | | | + +---+ | ammonium lactate (AMLACTIN) 12 | | | % cream Topical, PRN, Dry Skin, | | | Starting 12/28/18 at 1704, | | | Apply to bilateral feet daily and | | | PRN for dry skin. | | + +---+ | | | + +---+ + +-------+ + +---+---+ | ascorbic acid (VITAMIN C) | Given | | 1,000 mg | | | | tablet 1,000 mg 1,000 mg, Oral, | | 9 08:49 | | | | | Daily, First dose on 12/27/18 | | PDT | | | | | at 0900 | | | | | | + +-------+ + +---+---+ +-------+ + +---+---+ | Given | | 1,000 mg | | | | | 9 09:36 | | | | | | PDT | | | | +-------+ + +---+---+ | Given | | 1,000 mg | | | | | 9 08:51 | | | | | | PDT | | | | +-------+ + +---+---+ +---+---+ | | | +---+---+ + +-------+ +--------+---+---+ | aspirin chewable tablet 162 mg | Given | | 162 mg | | | | 162 mg, Oral, Daily With | | 9 08:49 | | | | | Breakfast, First dose on Sun | | PDT | | | | | 12/27/18 at 0800 | | | | | | + +-------+ +--------+---+---+ +-------+ +--------+---+---+ | Given | | 162 mg | | | | | 9 09:36 | | | | | | PDT | | | | +-------+ +--------+---+---+ | Given | | 162 mg | | | | | 9 08:51 | | | | | | PDT | | | | +-------+ +--------+---+---+ +---+---+ | | | +---+---+ + +-------+ +-------+---+---+ | atorvastatin (LIPITOR) tablet | Given | | 40 mg | | | | 40 mg 40 mg, Oral, Nightly, | | 9 20:05 | | | | | First dose on 12/27/18 at 0430 | | PDT | | | | + +-------+ +-------+---+---+ +-------+ +-------+---+---+ | Given | | 40 mg | | | | | 9 21:16 | | | | | | PDT | | | | +-------+ +-------+---+---+ | Given | | 40 mg | | | | | 9 20:45 | | | | | | PDT | | | | +-------+ +-------+---+---+ +---+---+ | | | +---+---+ + +-------+ +--------+---+---+ | cholecalciferol (VITAMIN D-3) | Given | | 1,000 | | | | tablet 1,000 Units 1,000 Units, | | 9 08:49 | Units | | | | Oral, Daily, First dose on Sun | | PDT | | | | | 12/27/18 at 0900 | | | | | | + +-------+ +--------+---+---+ +-------+ +--------+---+---+ | Given | | 1,000 | | | | | 9 09:36 | Units | | | | | PDT | | | | +-------+ +--------+---+---+ | Given | | 1,000 | | | | | 9 08:51 | Units | | | | | PDT | | | | +-------+ +--------+---+---+ +---+---+ | | | +---+---+ + +-------+ + +---+---+ | ferrous sulfate (65 FE) tablet | Given | | 65 mg of | | | | 65 mg of iron 65 mg of iron, | | 9 12:10 | iron | | | | Oral, 3 Times Daily With Meals, | | PDT | | | | | First dose on 12/27/18 at 1700 | | | | | | + +-------+ + +---+---+ +-------+ + +---+---+ | Given | | 65 mg of | | | | | 9 17:17 | iron | | | | | PDT | | | | +-------+ + +---+---+ | Given | | 65 mg of | | | | | 9 08:51 | iron | | | | | PDT | | | | +-------+ + +---+---+ +---+---+ | | | +---+---+ + +-------+ +--------+---+---+ | heparin (porcine) 5000 | Given | | 5,000 | | | | unit/0.5mL injection 5,000 Units | | 9 05:47 | Units | | | | 5,000 Units, Subcutaneous, Every | | PDT | | | | | 8 Hours Scheduled (3 times per | | | | | | | day), First dose on 12/27/18 | | | | | | | at 0600 | | | | | | + +-------+ +--------+---+---+ +-------+ +--------+---+---------+ | Given | | 5,000 | | Left | | | 9 13:38 | Units | | Lower | | | PDT | | | Abdomen | +-------+ +--------+---+---------+ | Given | | 5,000 | | | | | 9 21:54 | Units | | | | | PDT | | | | +-------+ +--------+---+---------+ +---+---+ | | | +---+---+ + +-------+ +--------+---+---+ | heparin (porcine) 5000 | Given | | 5,000 | | | | unit/0.5mL injection 5,000 Units | | 9 09:36 | Units | | | | 5,000 Units, Subcutaneous, Every | | PDT | | | | | 12 Hours Scheduled (2 times per | | | | | | | day), First dose on 12/28/18 | | | | | | | at 0900 | | | | | | + +-------+ +--------+---+---+ +-------+ +--------+---+---+ | Given | | 5,000 | | | | | 9 20:45 | Units | | | | | PDT | | | | +-------+ +--------+---+---+ | Given | | 5,000 | | | | | 9 08:52 | Units | | | | | PDT | | | | +-------+ +--------+---+---+ +---+---+ | | | +---+---+ + +-------+ +-------+---+---+ | hydrALAZINE (APRESOLINE) | Given | | 10 mg | | | | injection 10 mg 10 mg, | | 9 10:58 | | | | | Intravenous, Every 6 Hours PRN, | | PDT | | | | | Hypertension, SBP >150, Starting | | | | | | | 12/27/18 at 0804 | | | | | | + +-------+ +-------+---+---+ +---+---+ | | | +---+---+ + +-------+ +---------+---+---------+ | influenza vaccine quadrivalent | Given | | 0.5 mLs | | Right | | injection 0.5 mL 0.5 mL, | | 9 18:42 | | | Deltoid | | Intramuscular, Once for | | PDT | | | | | Immunization, 12/27/18 at | | | | | | | 1000, For 1 dose | | | | | | + +-------+ +---------+---+---------+ +---+---+ | | | +---+---+ + +-------+ +-------+---+---+ | labetalol (NORMODYNE) 5 mg/mL | Given | | 10 mg | | | | injection 10 mg 10 mg, | | 9 04:48 | | | | | Intravenous, Every 4 Hours PRN, | | PDT | | | | | SBP>160, Starting 12/27/18 at | | | | | | | 0403 | | | | | | + +-------+ +-------+---+---+ +---+---+ | | | +---+---+ + +-------+ +--------+---+---+ | losartan (COZAAR) tablet 100 mg | Given | | 100 mg | | | | 100 mg, Oral, Daily, First dose | | 9 13:30 | | | | | on 12/27/18 at 0900 | | PDT | | | | + +-------+ +--------+---+---+ +---+---+ | | | +---+---+ + +-------+ +--------+---+---+ | losartan (COZAAR) tablet 100 mg | Given | | 100 mg | | | | 100 mg, Oral, Daily, First dose | | 9 09:22 | | | | | on 12/29/18 at 0900 | | PDT | | | | + +-------+ +--------+---+---+ +-------+ +--------+---+---+ | Given | | 100 mg | | | | | 9 08:08 | | | | | | PDT | | | | +-------+ +--------+---+---+ +---+---+ | | | +---+---+ + +-------+ +-------+---+---+ | losartan (COZAAR) tablet 50 mg | Given | | 50 mg | | | | 50 mg, Oral, Daily, First dose | | 9 11:08 | | | | | on 01/03/19 at 1030 | | PDT | | | | + +-------+ +-------+---+---+ +-------+ +-------+---+---+ | Given | | 50 mg | | | | | 9 07:56 | | | | | | PDT | | | | +-------+ +-------+---+---+ +---+---+ | | | +---+---+ + +-------+ +-----+ +---+ | magnesium sulfate 1 g/50 mL | Given | | 1 g | 50 mL/hr | | | IVPB 1 g, Intravenous, | | 9 10:02 | | | | | Administer over 1 Hours, Once, | | PDT | | | | | 12/30/18 at 0900, For 1 dose, | | | | | | | Infusion rate 1 g/hr | | | | | | + +-------+ +-----+ +---+ +---+---+ | | | +---+---+ + +-------+ +-----+ +---+ | magnesium sulfate 2 g/50 mL | Given | | 2 g | 25 mL/hr | | | IVPB 2 g, Intravenous, | | 9 11:40 | | | | | Administer over 2 Hours, Once, | | PDT | | | | | 12/28/18 at 1000, For 1 dose, | | | | | | | Infusion rate 1 g/hr | | | | | | + +-------+ +-----+ +---+ +---+---+ | | | +---+---+ + +-------+ +-------+---+---+ | metolazone tablet 10 mg 10 mg, | Given | | 10 mg | | | | Oral, Daily, First dose on Sun | | 9 13:37 | | | | | 12/27/18 at 0900 | | PDT | | | | + +-------+ +-------+---+---+ +-------+ +-------+---+---+ | Given | | 10 mg | | | | | 9 16:22 | | | | | | PDT | | | | +-------+ +-------+---+---+ | Given | | 10 mg | | | | | 9 09:25 | | | | | | PDT | | | | +-------+ +-------+---+---+ +---+---+ | | | +---+---+ + +-------+ +---------+---+---+ | metoprolol (LOPRESSOR) tablet | Given | | 12.5 mg | | | | 12.5 mg 12.5 mg, Oral, 2 Times | | 9 08:46 | | | | | Daily, First dose on Fri01/01/19 | | PDT | | | | | at 2100 | | | | | | + +-------+ +---------+---+---+ +---+---+ | | | +---+---+ + +-------+ +---------+---+---+ | metoprolol (LOPRESSOR) tablet | Given | | 12.5 mg | | | | 12.5 mg 12.5 mg, Oral, 2 Times | | 9 07:59 | | | | | Daily, First dose on Fri01/04/19 | | PDT | | | | | at 2100 | | | | | | + +-------+ +---------+---+---+ +-------+ +---------+---+---+ | Given | | 12.5 mg | | | | | 9 08:50 | | | | | | PDT | | | | +-------+ +---------+---+---+ +---+---+ | | | +---+---+ + +-------+ +-------+---+---+ | metoprolol (LOPRESSOR) tablet | Given | | 25 mg | | | | 25 mg 25 mg, Oral, 2 Times | | 9 20:05 | | | | | Daily, First dose on 12/28/18 | | PDT | | | | | at 0900 | | | | | | + +-------+ +-------+---+---+ +-------+ +-------+---+---+ | Given | | 25 mg | | | | | 9 08:09 | | | | | | PDT | | | | +-------+ +-------+---+---+ | Given | | 25 mg | | | | | 9 08:41 | | | | | | PDT | | | | +-------+ +-------+---+---+ +---+---+ | | | +---+---+ + +-------+ +-------+---+---+ | metoprolol (LOPRESSOR) tablet | Given | | 25 mg | | | | 25 mg 25 mg, Oral, 2 Times | | 9 08:34 | | | | | Daily, First dose on 01/02/19 | | PDT | | | | | at 2100 | | | | | | + +-------+ +-------+---+---+ +-------+ +-------+---+---+ | Given | | 25 mg | | | | | 9 21:15 | | | | | | PDT | | | | +-------+ +-------+---+---+ | Given | | 25 mg | | | | | 9 08:04 | | | | | | PDT | | | | +-------+ +-------+---+---+ +---+---+ | | | +---+---+ + +-------+ +-------+---+---+ | metoprolol (LOPRESSOR) tablet | Given | | 50 mg | | | | 50 mg 50 mg, Oral, 2 Times | | 9 21:52 | | | | | Daily, First dose on 12/27/18 | | PDT | | | | | at 0900 | | | | | | + +-------+ +-------+---+---+ + +---+ | | | + +---+ | ondansetron (ZOFRAN) injection | | | 4 mg 4 mg, Intravenous, Every 6 | | | Hours PRN, Nausea, Vomiting, | | | Starting 12/27/18 at 0401 | | + +---+ | | | + +---+ | ondansetron (ZOFRAN-ODT) | | | disintegrating tablet 4 mg 4 mg, | | | Oral, Every 6 Hours PRN, Nausea, | | | Vomiting, Starting 12/27/18 | | | at 0401 | | + +---+ | | | + +---+ + +-------+ +-------+---+---+ | PARoxetine (PAXIL) tablet 20 mg | Given | | 20 mg | | | | 20 mg, Oral, Every Morning, | | 9 08:50 | | | | | First dose on 12/27/18 at 0900 | | PDT | | | | + +-------+ +-------+---+---+ +-------+ +-------+---+---+ | Given | | 20 mg | | | | | 9 09:36 | | | | | | PDT | | | | +-------+ +-------+---+---+ | Given | | 20 mg | | | | | 9 08:51 | | | | | | PDT | | | | +-------+ +-------+---+---+ +---+---+ | | | +---+---+ + +-------+ +--------+---+---+ | potassium chloride (K-DUR) CR | Given | | 20 mEq | | | | tablet 20 mEq 20 mEq, Oral, 2 | | 9 08:09 | | | | | Times Daily With Meals, First | | PDT | | | | | dose on 12/27/18 at 0800 | | | | | | + +-------+ +--------+---+---+ +-------+ +--------+---+---+ | Given | | 20 mEq | | | | | 9 18:26 | | | | | | PDT | | | | +-------+ +--------+---+---+ | Given | | 20 mEq | | | | | 9 08:30 | | | | | | PDT | | | | +-------+ +--------+---+---+ +---+---+ | | | +---+---+ + +-------+ +--------+---+---+ | potassium chloride (K-DUR) CR | Given | | 20 mEq | | | | tablet 20 mEq 20 mEq, Oral, | | 9 08:09 | | | | | Once, 12/30/18 at 0830, For 1 | | PDT | | | | | dose | | | | | | + +-------+ +--------+---+---+ +---+---+ | | | +---+---+ + +-------+ +--------+---+---+ | potassium chloride (K-DUR) CR | Given | | 20 mEq | | | | tablet 20 mEq 20 mEq, Oral, | | 9 10:38 | | | | | Once, 01/06/19 at 1000, For 1 | | PDT | | | | | dose | | | | | | + +-------+ +--------+---+---+ +---+---+ | | | +---+---+ + +-------+ +--------+---+---+ | potassium chloride (K-DUR) CR | Given | | 20 mEq | | | | tablet 20 mEq 20 mEq, Oral, | | 9 09:36 | | | | | Once, [place] 01/07/19 at 0730, For 1 | | PDT | | | | | dose | | | | | | + +-------+ +--------+---+---+ +---+---+ | | | +---+---+ + +-------+ +--------+---+---+ | potassium chloride (K-DUR) CR | Given | | 20 mEq | | | | tablet 20 mEq 20 mEq, Oral, | | 9 12:10 | | | | | Once, [facility] 01/07/19 at 1230, For 1 | | PDT | | | | | dose | | | | | | + +-------+ +--------+---+---+ +---+---+ | | | +---+---+ + +-------+ +--------+---+---+ | potassium chloride (K-DUR) CR | Given | | 30 mEq | | | | tablet 30 mEq 30 mEq, Oral, | | 9 12:00 | | | | | Once, [facility] 01/04/19 at 1200, For 1 | | PDT | | | | | dose | | | | | | + +-------+ +--------+---+---+ +---+---+ | | | +---+---+ + +-------+ +--------+-------+---+ | potassium chloride 20 mEq in | Given | | 20 mEq | 125 | | | 250 mL IVPB 20 mEq, Intravenous, | | 9 10:03 | | mL/hr | | | Administer over 2 Hours, Once, | | PDT | | | | | 12/30/18 at 0900, For 1 dose | | | | | | + +-------+ +--------+-------+---+ +---+---+ | | | +---+---+ + +-------+ +--------+---+---+ | regadenoson (LEXISCAN) | Given | | 0.4 mg | | | | injection 0.4 mg 0.4 mg, | | 9 12:54 | | | | | Intravenous, Img Once PRN, per | | PDT | | | | | protocol for a Nuc Med | | | | | | | regadenoson stress test, Starting | | | | | | | 12/27/18 at 1117, For 1 dose, | | | | | | | Procedural (NucMed) | | | | | | + +-------+ +--------+---+---+ +---+---+ | | | +---+---+ + +-------+ +---------+---+---+ | sodium chloride (bolus) 0.9 % | Given | | 500 mLs | | | | 500 mL 500 mL, Intravenous, | | 9 12:15 | | | | | Once, [facility] 12/31/18 at 1230, For 1 | | PDT | | | | | dose | | | | | | + +-------+ +---------+---+---+ +---+---+ | | | +---+---+ + +-------+ +---------+---+---+ | sodium chloride (bolus) 0.9 % | Given | | 500 mLs | | | | 500 mL 500 mL, Intravenous, | | 9 13:39 | | | | | Administer over 30 Minutes, Once, | | PDT | | | | | [facility] 12/31/18 at 1330, For 1 dose | | | | | | + +-------+ +---------+---+---+ +---+---+ | | | +---+---+ + +-------+ +---------+---+---+ | sodium chloride (bolus) 0.9 % | Given | | 500 mLs | | | | 500 mL 500 mL, Intravenous, | | 9 15:53 | | | | | Once, 01/06/19 at 1630, For 1 | | PDT | | | | | dose | | | | | | + +-------+ +---------+---+---+ +---+---+ | | | +---+---+ + +-------+ +--------+---+---+ | sodium chloride (PF) 0.9 % | Given | | 10 mLs | | | | flush 10 mL 10 mL, Intravenous, | | 9 08:55 | | | | | Every 8 Hours, First dose on Sun | | PDT | | | | | 12/27/18 at 0430 | | | | | | + +-------+ +--------+---+---+ +-------+ +--------+---+---+ | Given | | 10 mLs | | | | | 9 21:17 | | | | | | PDT | | | | +-------+ +--------+---+---+ | Given | | 10 mLs | | | | | 9 20:51 | | | | | | PDT | | | | +-------+ +--------+---+---+ +---+---+ | | | +---+---+ + +---------+ +---+ +---+ | sodium chloride 0.9 % infusion | New Bag | | | 75 mL/hr | | | at 75 mL/hr, Intravenous, | | 9 21:16 | | | | | Continuous, Starting 01/01/19 | | PDT | | | | | at 1000 | | | | | | + +---------+ +---+ +---+ +---------+ +---+ +---+ | New Bag | | | 75 mL/hr | | | | 9 10:25 | | | | | | PDT | | | | +---------+ +---+ +---+ | New Bag | | | 75 mL/hr | | | | 9 22:11 | | | | | | PDT | | | | +---------+ +---+ +---+ +---+---+ | | | +---+---+ + +---------+ +---+ +---+ | sodium chloride 0.9 % infusion | New Bag | | | 50 mL/hr | | | at 50 mL/hr, Intravenous, | | 9 16:30 | | | | | Continuous, Starting 01/06/19 | | PDT | | | | | at 1630, For 5 hours | | | | | | + +---------+ +---+ +---+ +---+---+ | | | +---+---+ + +-------+ +-------+---+---+ | torsemide (DEMADEX) tablet 10 | Given | | 10 mg | | | | mg 10 mg, Oral, Daily, First | | 9 08:50 | | | | | dose on Fri01/06/19 at 0900 | | PDT | | | | + +-------+ +-------+---+---+ +---+---+ | | | +---+---+ + +-------+ +-------+---+---+ | torsemide (DEMADEX) tablet 20 | Given | | 20 mg | | | | mg 20 mg, Oral, Daily, First | | 9 11:08 | | | | | dose on 01/03/19 at 1030 | | PDT | | | | + +-------+ +-------+---+---+ +-------+ +-------+---+---+ | Given | | 20 mg | | | | | 9 08:03 | | | | | | PDT | | | | +-------+ +-------+---+---+ | Given | | 20 mg | | | | | 9 07:58 | | | | | | PDT | | | | +-------+ +-------+---+---+ +---+---+ | | | +---+---+ + +-------+ +-------+---+---+ | torsemide (DEMADEX) tablet 40 | Given | | 40 mg | | | | mg 40 mg, Oral, 2 Times Daily, | | 9 13:27 | | | | | First dose on 12/27/18 at 0900 | | PDT | | | | + +-------+ +-------+---+---+ +---+---+ | | | +---+---+ + +-------+ +-------+---+---+ | torsemide (DEMADEX) tablet 40 | Given | | 40 mg | | | | mg 40 mg, Oral, 2 Times | | 9 05:32 | | | | | Daily-Diuretics, First dose on | | PDT | | | | | 12/30/18 at 0600 | | | | | | + +-------+ +-------+---+---+ +---+---+ | | | +---+---+ + +-------+ +-------+---+---+ | torsemide (DEMADEX) tablet 40 | Given | | 40 mg | | | | mg 40 mg, Oral, 2 Times | | 9 05:33 | | | | | Daily-Diuretics, First dose on | | PDT | | | | | Eilzabeth 12/31/18 at 0600 | | | | | | + +-------+ +-------+---+---+ +---+---+ | | | +---+---+ + +-------+ +-------+---+---+ | torsemide (DEMADEX) tablet 50 | Given | | 50 mg | | | | mg 50 mg, Oral, 2 Times | | 9 18:35 | | | | | Daily-Diuretics, First dose on | | PDT | | | | | 12/27/18 at 1600 | | | | | | + +-------+ +-------+---+---+ +-------+ +-------+---+---+ | Given | | 50 mg | | | | | 9 18:32 | | | | | | PDT | | | | +-------+ +-------+---+---+ | Given | | 50 mg | | | | | 9 05:03 | | | | | | PDT | | | | +-------+ +-------+---+---+ +---+---+ | | | +---+---+ in this encounter
--- OUTSIDE RECORDS SUMMARY | ~2019-01-14 | XMS | Encounter Summary ---
Demographics + + + | Address | [address] | | | [place] [address] | + + + | Home Phone | | + + + | Preferred Language | Unknown | + + + | Marital Status | | + + + | Scientologist Affiliation | Unknown | + + + | Race | Unknown | + + + | Ethnic Group | Unknown | + + + Author + + + | Author | [facility] | + + + | Organization | [facility] | + + + | Address | [...] Team Providers + +------+ + | Care Assembly Cleaner Name | Role | Phone | + +------+ + | Amee Costa MD | PCP | | + +------+ + Reason for Visit + + + | Reason | Comments | + + + | Pacemaker Check | in-office | + + + Encounter Details +--------+ + + + + | Date | Type | Department | Care Team | Description | +--------+ + + + + | 11/10/ | Documentati | [facility] | | Pacemaker Check | | 2019 | on Only | Card[facility] [place] | | (in-office) | | | | [address] [facility] [address] | | [address] | | | | | | [place] [address] | | | | | | [phone] | | | +--------+ + + + [...] + + + as of this encounter Progress Notes Mracus Cook, LEONEL - 11/10/2018 11:45 AM PSTFormatting of this note may be different from catalina frias. PACEMAKER INTERROGATION REPORT Name: Michael Joshi PCP: AMEE COSTA : 1940 Primary cardiology provider: [facility] Primary electrophysiology provider: None Mode of interrogation: Seen in cardiac device clinic Device: Everwise Battery Longevity: <1/2 years. RV Pacin% Pacemaker dependent: No Interrogation results Please see the full interrogation report attached Lead function: Lead impedance and threshold value trends have been reviewed and are accepta ble based on most recent evaluation. RV Threshold: 1.3V @ 0.5ms RV Amplitude: 5.9mV Atrial events: Atrial high rate episodes: No atrial lead present. Known history of atrial flutter or atrial fibrillation: Yes Current antithrombotic therapy including: aspirin Ventricular events: Ventricular high rate episodes: Tachycardia episodes recorded, short i n nature and appears to be irregular per Ronnie Reid. Additional comments: None. Programming changes: Temporary programming changes were made for testing and restored to or iginal values. No permanent changes were made. Follow up: The next scheduled interrogation will be in monthly in the cardiac device clini c. Impression: 1. Normal pacemaker function. 2. EGM printed. Testing performed by: Ronnie Perdue Profilepasserin this encounter Plan of Treatment +--------+ + [...] | | | | | | [address] [place], [place] | | | | | | [id number] | | | | | | | | +--------+ + + + + as of this encounter Visit Diagnoses + + | Diagnosis | + + | Chronic atrial fibrillation (HCC) - Primary | + + | Atrial fibrillation | + + | Cardiac pacemaker in situ | + +"
--- OUTSIDE RECORDS SUMMARY | ~2019-01-14 | XMS | Encounter Summary ---
Demographics + + + | Address | [address] | | | [place] [address] | + + + | Home Phone | | + + + | Preferred Language | Unknown | + + + | Marital Status | | + + + | Yarsani Affiliation | Unknown | + + + | Race | Unknown | + + + | Ethnic Group | Unknown | + + + Author + + + | Author | [facility] | + + + | Organization | [facility] | + + + | Address | [...] Team Providers + +------+ + | Care Production Assembly Supervisor Name | Role | Phone | + +------+ + | Kushal Costa MD | PCP | | + +------+ + Encounter Details +--------+ + + + + | Date | Type | Department | Care Team | Description | +--------+ + + + + | 12/26/ | Ancillary | [facility] | See, Medical | Chest pain, | | 2019 | Orders | [facility] Xray | Record [address] | unspecified type | | | | [address] | [address] [place] [address] | | | | | [place] [address] | [place] [address] | | | | | [phone] | [phone] | | | | | | | [...] | | | | | | [address] [place], [place] | | | | | | [address] | | | | | | | | +--------+ + + + + as of this encounter Results X-ray chest 2 view frontal & lateral (12/26/2018 10:56 PM) + + + | Narrative | Performed At | + + + | This is a non-reportable procedure without a radiologist report and | [facility] | | is used for image storage only | RADIOLOGY | + + + + + + + + | Performing | Address | City/State/Zipcode | Phone Number | | Organization | | | | + + + + + | [facility] | [address] | [place] [address] | | + + + + + in this encounter Visit Diagnoses + + | Diagnosis | + + | Chest pain, unspecified type | + +"
--- OUTSIDE RECORDS SUMMARY | ~2019-01-14 | XMS | Encounter Summary ---
Demographics + + + | Address | [address] | | | [place] [address] | + + + | Home Phone | | + + + | Preferred Language | Unknown | + + + | Marital Status | | + + + | Gnosticism Affiliation | Unknown | + + + | Race | Unknown | + + + | Ethnic Group | Unknown | + + + Author + + + | Author | [facility] | + + + | Organization | [facility] | + + + | Address | [...] Providers + +------+ + | Care Senior Brand Manager Name | Role | Phone | + +------+ + | Kushal Costa MD | PCP | | + +------+ + Encounter Details +--------+ + + + + | Date | Type | Department | Care Team | Description | +--------+ + + + + | 10/26/ | Telephone | [facility] | [place], | | | 2019 | | [address] | [address] | | | | | [address] | | | | | | [place] [address] | | | | | | [phone] | | | +--------+ + + + [...] [place] | | | | | | [address] | | | | | | | | +--------+ + + + + + +--------+ + + | Name | Priori | Associated Diagnoses | Order Schedule | | | ty | | | + +--------+ + + | Basic metabolic panel | Routin | CKD (chronic | Expected: | | | e | kidney disease) | 11/02/2018, Expires: | | | | stage 3, GFR 30-59 | 10/26/2019 | | | | ml/min (HCC) | | | | | Electrolyte | | | | | imbalance risk | | | | | Essential | | | | | hypertension, benign | | + +--------+ + + | Renal function panel | Routin | CKD (chronic | Expected: | | | e | kidney disease) | 11/26/2018, Expires: | | | | stage 3, GFR 30-59 | 10/26/2019 | | | | ml/min (HCC) | | | | | Electrolyte | | | | | imbalance risk | | | | | Essential | | | | | hypertension, benign | | + +--------+ + + | Magnesium | Routin | CKD (chronic | Expected: | | | e | kidney disease) | 11/26/2018, Expires: | | | | stage 3, GFR 30-59 | 10/26/2019 | | | | ml/min (HCC) | | | | | Electrolyte | | | | | imbalance risk | | | | | Essential | | | | | hypertension, benign | | + +--------+ + + | CBC W/Auto Diff (Reflex to | Routin | CKD (chronic | Expected: | | Manual) | e | kidney disease) | 11/26/2018, Expires: | | | | stage 3, GFR 30-59 | 10/26/2019 | | | | ml/min (HCC) | | | | | Electrolyte | | | | | imbalance risk | | | | | Essential | | | | | hypertension, benign | | + +--------+ + + as of this encounter Visit Diagnoses + + | Diagnosis | + + | CKD (chronic kidney disease) stage 3, GFR 30-59 ml/min ([facility]) - Primary | + + | Chronic kidney disease, Stage III (moderate) | + + | Electrolyte imbalance risk | + + | Other specified conditions influencing health status | + + | Essential hypertension, benign | + +"
--- OUTSIDE RECORDS SUMMARY | ~2019-01-14 | XMS | Encounter Summary ---
Demographics + + + | Address | [address] | | | [place] [address] | + + + | Home Phone | | + + + | Preferred Language | Unknown | + + + | Marital Status | | + + + | Restoration Affiliation | Unknown | + + + | Race | Unknown | + + + | Ethnic Group | Unknown | + + + Author + + + | Author | [facility] | + + + | Organization | [facility] | + + + | Address | [...] Team Providers + +------+ + | Care White Sugar Supervisor Name | Role | Phone | + +------+ + | Kushal Costa MD | PCP | | + +------+ + Reason for Visit +--------+ + | Reason | Comments | +--------+ + | Other | Labs | +--------+ + Encounter Details +--------+ + + + + | Date | Type | Department | Care Team | Description | +--------+ + + + + | 01/07/ | Documentati | [facility] | [place], | Other (Labs) | | 2019 | on Only | [place] [address] | [address] | | | | | [address] | | | | | | [place] [address] | | | | | | [phone] | | | +--------+ + + + [...] | | | | | | [address] [place], [place] | | | | | | [address] | | | | | | | [...] + + + in this encounter Results Protein / creatinine ratio, urine (10/24/2018) + +-------+ + + | Component | Value | Ref Range | Performed At | + +-------+ + + | UR | 136.1 | 0 - 150 | | | PROTEIN/CREATININE | | | | + +-------+ + + + + | Specimen | + + | Urine - Urine, | | Unspecified Source | + + Urine microscopic only (10/24/2018) + + + + + | Component | Value | Ref Range | Performed At | + + + + + | COLOR UA | Yellow | | | + + + + + | CLARITY | Clear | | | + + + + + | Specific [place], UA | 1.015 | 1.005 - 1.030 [...] + + | Urine | + + in this encounter Visit Diagnoses Not on filein this encounter"
--- OUTSIDE RECORDS SUMMARY | ~2019-01-14 | XMS | Clinical Summary ---
Demographics + + + | Address | [address] | | | [place] [address] | + + + | Home Phone [...] Team Providers + +------+ + | Care Metal Rolling Mill Operator Name | Role | Phone | [...] + + + Current Medications + + +-------+---------+------+------+-------+ | Prescription | Sig. | Disp. | Refills | Star | End | Statu | | | | | | t | Date | s | | | | | | Date | | | + + +-------+---------+------+------+-------+ | simvastatin | Take 20 mg by mouth | | | | | Activ | | (ZOCOR) 20 mg tablet | Daily. | | | | | e | + + +-------+---------+------+------+-------+ | metoprolol | Take 50 mg by mouth | | | | | Activ | | tartrate (LOPRESSOR) | 2 times daily. | | | | | e | | 50 mg tablet | | | | | | | + + +-------+---------+------+------+-------+ | metOLazone | 1 tablet Orally one | | | | | Activ | | (ZAROXOLYN) 5 MG | hour before | | | | | e | | tablet | torsemide | | | | | | + + +-------+---------+------+------+-------+ | amLODIPine | Take 5 mg by mouth | | | | | Activ | | (NORVASC) 5 mg | Daily. | | | | | e | | tablet | | | | | | | + + +-------+---------+------+------+-------+ | PARoxetine (PAXIL) | Take 20 mg by mouth | | | | | Activ | | 20 mg tablet | Daily. | | | | | e | + + +-------+---------+------+------+-------+ | mometasone | Apply 1 Application | | | | | Activ | | (ELOCON) 0.1 % cream | topically Daily. | | | | | e | + + +-------+---------+------+------+-------+ | | Take 1 tablet by | | | | | Activ | | HYDROcodone-acetamin | mouth every 6 hours | | | | | e | | ophen (NORCO) | as needed. | | | | | | | 7.5-325 mg per | | | | | | | | tablet | | | | | | | + + +-------+---------+------+------+-------+ | aspirin 81 mg EC | Take 81 mg by mouth | | | | | Activ | | tablet | Daily. | | | | | e | + + +-------+---------+------+------+-------+ | Bioflavonoid | Take by mouth. | | | | | Activ | | Products (VITAMIN C) | | | | | | e | | CHEW | | | | | | | + + +-------+---------+------+------+-------+ | cholecalciferol | Take 1,000 Units by | | | | | Activ | | (VITAMIN D-3) 1,000 | mouth Daily. | | | | | e | | units tablet | | | | | | | + + +-------+---------+------+------+-------+ | terazosin (HYTRIN) | Take 1 mg by mouth | | | 03/0 | 03/0 | Expir | | 1 mg capsule | Daily. | | | 5/20 | 5/20 | ed | | | | | | 18 | 19 | | + + +-------+---------+------+------+-------+ Active Problems + + + | Problem [...] level | 06/11/2018 | + + + Encounters +--------+ + + + + | Date | Type | Specialty | Care Team | Description | +--------+ + + + + | 10/21/ | Orders Only | | Chris Ramsey | Lumbar radiculopathy | | 2018 | | | MD Dotty | (Primary Dx) | +--------+ + + + + from Last 3 Months Family History Patient is adopted + + +---------+ + | Medical History | Relation | Name | Comments | + + +---------+ + | No known problems | Daughter | Marianna | | | | | Ana M | | + + +---------+ + + [...] Vaccine: Influenza | | | | | (#1) | 8 | | | + + + + + Results Not on filefrom Last 3 Months Insurance + +--------+ +--------+ +---------+ | Payer | Benefi | Subscriber | Type | Phone | Address | | | t Plan | ID | | | | | | / | | | | | | | Group | | | | | + +--------+ +--------+ +---------+ | MEDICARE | MEDICA | [id number] | Medica | [phone] | | | | RE | | re | [phone] | | | | PART A | | | | | | | AND B | | | | | + +--------+ +--------+ +---------+ + +--------+ +--------+ + + | Guarantor Name | Accoun | Relation to | Date | Phone | Billing Address | | | t Type | Patient | of | | | | | | | | | | + +--------+ +--------+ + + | FROYLAN JOSHI | Person | Self [birth year] Home: | [address] [place] [address] | | | al/Fam | | [phone] | [phone] | [place] | | | lissy | | | [phone] | [phone] | + +--------+ +--------+ + +
--- OUTSIDE RECORDS SUMMARY | ~2019-01-14 | XMS | Encounter Summary ---
Demographics + + + | Address | [address] | | | [place] [address] | + + + | Home Phone | | + + + | Preferred Language | Unknown | + + + | Marital Status | | + + + | Methodist Affiliation | Unknown | + + + | Race | Unknown | + + + | Ethnic Group | Unknown | + + + Author + + + | Author | [facility] | + + + | Organization | [facility] | + + + | Address | Unknown | + + + | Phone | Unavailable | + + + Support + + +---------+ + | Name | Relationship | Address | Phone | + + +---------+ + | Allegra Joshi | ECON | Unknown | | + + +---------+ + | Carol Gacria | ECON | Unknown | | + + +---------+ + Care Team Providers + +------+ + | Care Sieve Grader Tender Name | Role | Phone | [...] | | | | | | | [address] Phone: | | | | | | | [phone] | | | | | | | Fax: | | | | | | | [phone] | +--------+--------+ + + + + Encounter Details +--------+ + + + + | Date | Type | Department | Care Team | Description | +--------+ + + + + | 12/27/ | Hospital | [facility] | Enriqueta Reese, | Hypervolemia, | | 2019 - | Encounter | [facility] | [address] | unspecified | | | | [facility] | [place] [address] | hypervolemia type | | 01/08/ | | [address] | [phone] | (Primary Dx) | | 2019 | | [place] [address] | | | | | | [phone] | Franki Carrizales MD | | | | | | [address] | | | | | | [place] [address] | | | | | | [phone] | | | | | | | | | | | | Shar Dawson, | | | | | | [address] | | | | | | [place] [address] | | | | | | [phone] | | | | | | | | | | | | Nellie Clinton | | | | | | MD [address] | | | | [address] | | | | | | [place] [address] | | | | | | [phone] | | | | | | | [...] may be differ ent from the original. [facility] Service: Hospitalist Physician Discharge Summary Patient ID: [...] discussed with Dr. Gandara, the patient's primary senior network security engineer. He will check his bloo d pressure [...] patient will follow u p outpatient with interventional pain physician. Wound care instructions have been given. Plan [...] Urrutia MD [address] [place] [address] Schedule an appointment as soon as possible for a visit in 3 days resume care with all providers you were seeing prior to admission Danny Gandara MD [address] [address] Schedule an appointment as soon [...] summary. This entry has been created using Front App Speech Recognition software and Mambu. The entry has been reviewed and there [...] Abdominal pain Extreme tiredness Date Last Reviewed: 11/20/201619995844-1083 The [employer]. [address] [place] [address], [place] [address]. All righ ts reserved. This information is not intended as a substitute for professional medical care. Always follow your healthcare professional's instructions. Outpatient follow-up with podiatry next week For left foot toes: [place] effected area with betadine BID or PRN [...] and treat & OT eval and treat, mcc eval and treat wound s Please allow [...] may be differ ent from the original. [facility] Service: Hospitalist Progress Note Hospital Day: LOS: [...] LIST Principal Problem: IZZY (acute kidney injury) ([facility]) Active Problems: CKD (chronic kidney disease) stage 3, GFR 30-59 ml/min ([facility]) Essential hypertension, benign Bilateral lower extremity edema Chronic atrial fibrillation (HCC) Cardiac pacemaker in situ NEETU (obstructive sleep apnea) Pulmonary hypertension (HCC) Right heart failure (HCC) Chronic diastolic heart failure ([facility]) ASSESSMENT & PLAN Shortness of breath. [...] PM This entry has been created using Front App Speech Recognition software and Mambu. The entry has been reviewed and there [...] may be differ ent from the original. [facility] Service: Hospitalist Progress Note Hospital Day: LOS: [...] LIST Principal Problem: IZZY (acute kidney injury) ([facility]) Active Problems: CKD (chronic kidney disease) stage 3, GFR 30-59 ml/min ([facility]) Essential hypertension, benign Bilateral lower extremity edema Chronic atrial fibrillation ([facility]) Cardiac pacemaker in situ NEETU (obstructive sleep apnea) Pulmonary hypertension (HCC) Right heart failure ([facility]) Chronic diastolic heart failure ([facility]) ASSESSMENT & PLAN Shortness of breath. [...] AM This entry has been created using Front App Speech Recognition software and Mambu. The entry has been reviewed and there may still exist sound alike word errors. Dayna Roy, Nursing Techn - 01/05/2019 3:46 PM PDTFormatting of this note may b e different from the original. 01/05/19 1459 Subjective Timepoint Admit Pt c/o Pt triggered for screening secondary to LOS 8. Pt presented to [facility] with SOB and ang darcy. D/C to [...] pt has followed RD in past at [facility], doesn't cook with salt, uses Mrs. [...] Low Follow up date 01/12/19 Dayna Roy, Nursing Techn Associated attestation - Jacob Diaz RD - 01/05/2019 3:48 PM VENESSA Gooden Christopher D [facility] - 01/05/2019 3:05 PM PDTRx CHF Medication Counseling Note Patient received medication counseling for the following CHF medications: (ARBs): losartan (COZAAR) Beta Blockers: metoprolol succinate (TOPROL XL) Diuretics: torsemide (DEMADEX) and metolazone (ZAROXOLYN) I had the pleasure to speak with the patient today regarding his medications utilized in [facility] hospital management of diastolic heart failure. We [...] understanding of the material discussed. Pedrito Crane, [facility] 01/05/2019 3:04 Nellie Roberto MD - 01/05/2019 10:33 AM PDTFormatting of this note may be different from the original. [facility] Service: Hospitalist Progress Note Hospital Day: LOS: [...] AM This entry has been created using Front App Speech Recognition software and Mambu. The entry has been reviewed and there may still exist sound alike word errors. Shar Dawson MD - 01/04/2019 10:10 PM PDTFormatting of this note may be different fro m the original. [facility] Service: Hospitalist Progress Note Pt: Michael Huttonjairon [...] other chronic comorbidities who p resents to [facility] ER from [facility] on 12/27 for acute dyspnea/anginal [...] not d/c'd. He is accepted to a [facility] and also he does get unaboots changed [...] hours. No results for input(s): PHART, PO2ART, NIC1NZY, R9XMOSKP, BEART in the last 168 hours. No [...] and managing patient and counseling/coordination. Dictation software, Live Calendars, used which may contain error for similar [...] note may be different from the original. [facility] Service: Hospitalist Progress Note Pt: Michael Joshi [...] other chronic comorbidities who p resents to [facility] ER from [facility] on 12/27 for acute dyspnea/anginal [...] hours. No results for input(s): PHART, PO2ART, YGM6AHJ, F5BWQVND, BEART in the last 168 hours. No [...] and managing patient and counseling/coordination. Dictation software, Live Calendars, used which may contain error for similar sounding words even af ter review. Personal communication requested for any clarification. Portions of this chart may have been copied from previous notes for continuity of care purp Shar Gordon MD - 01/02/2019 9:58 AM PDTFormatting of this note may be different fro m the original. [facility] Service: Hospitalist Progress Note Pt: Michael Joshi AGE/SEX: 78 y.o. male ROOM: [facility] : 1940 PCP: AMEE URRUTIA ADMIT [...] other chronic comorbidities who p resents to [facility] ER from [facility] on 12/27 for acute dyspnea/anginal [...] hours. No results for input(s): PHART, PO2ART, AST8SNH, X5QAQFEL, BEART in the last 168 hours. No [...] and managing patient and counseling/coordination. Dictation software, Live Calendars, used which may contain error for similar sounding words even af ter review. Personal communication requested for any clarification. Portions of this chart may have been copied from previous notes for continuity of care purp Shar Gordon MD - 01/01/2019 9:41 AM PDTFormatting of this note may be different fro m the original. [facility] Service: Hospitalist Progress Note Pt: Michael Joshi AGE/SEX: 78 y.o. male ROOM: [facility]/7114-1 : 1940 PCP: AMEE [...] other chronic comorbidities who p resents to [facility] ER from [facility] on 12/27 for acute dyspnea/anginal [...] hours. No results for input(s): PHART, PO2ART, YQO3CRD, U2MAMYIH, BEART in the last 168 hours. No [...] kidney disease) stage 3, GFR 30-59 ml/min ([facility]) Essential hypertension, benign Bilateral lower extremity edema Chronic atrial fibrillation (HCC) Cardiac pacemaker in situ Pulmonary hypertension (HCC) Right heart failure ([facility]) Chronic systolic heart failure ([facility]) ASSESSMENT & PLAN 1. Acute respiratory [...] and managing patient and counseling/coordination. Dictation software, Live Calendars, used which may contain error for similar sounding words even af ter review. Personal communication requested for any clarification. Portions of this chart may have been copied from previous notes for continuity of care purp Shar Gordon MD - 12/31/2018 7:59 PM PDTFormatting of this note may be different fro m the original. [facility] Service: Hospitalist Progress Note Pt: Michael Huttonjairon [...] other chronic comorbidities who p resents to [facility] ER from [facility] on 12/27 for acute dyspnea/anginal [...] hours. No results for input(s): PHART, PO2ART, VEJ5NOG, H4RCZOPI, BEART in the last 168 hours. No results for input(s): APTT, INR, PTT in the last 168 hours. Recent Labs Lab 12/27/18 0517 TSH 1.500 Recent Labs Lab 12/27/18 0751 12/27/18 0517 TROPONINI 0.046* 0.048* Results No results found for the last 72 hours. RADIOLOGY: Nd Myocardial Perfusion Spect (stress And Rest) Result [...] and managing patient and counseling/coordination. Dictation software, Live Calendars, used which may contain error for similar sounding words even af ter review. Personal communication requested for any clarification. Portions of this chart may have been copied from previous notes for continuity of care purp Shar Gordon MD - 12/30/2018 9:28 AM PDTFormatting of this note may be different fro m the original. [facility] Service: Hospitalist Progress Note Pt: Michael Joshi [...] other chronic comorbidities who p resents to [facility] ER from [facility] on 12/27 for acute dyspnea/anginal [...] hours. No results for input(s): PHART, PO2ART, BGX5BJX, Q6HQGXPX, BEART in the last 168 hours. No [...] and managing patient and counseling/coordination. Dictation software, Live Calendars, used which may contain error for similar sounding words even af ter review. Personal communication requested for any clarification. Portions of this chart may have been copied from previous notes for continuity of care purp Shar Gordon MD - 12/29/2018 4:15 PM PDTFormatting of this note may be different fro m the original. [facility] Service: Hospitalist Progress Note Pt: Michael Joshi AGE/SEX: 78 y.o. male ROOM: [facility]/7114- : 1940 PCP: AMEE URRUTIA ADMIT DATE: [...] other chronic comorbidities who p resents to [facility] ER from [facility] on 12/27 for acute dyspnea/anginal [...] hours. No results for input(s): PHART, PO2ART, SOM8WBO, S1QXFAGM, BEART in the last 168 hours. No [...] and presentl y on aspirin therapy. SHAR DWASON MD 12/29/2018 4:15 PM Greater than 35 minutes spent today overall in coordination of care, seeing and managing pa meghan, review of data, coordination with staff, coordination with involved consultants, and including any scheduled multidisciplinary rounding focused on the patient with 50 percent or more spent seeing and managing patient and counseling/coordination. Dictation software, Live Calendars, used which may contain error for similar sounding words even af ter review. Personal communication requested for any clarification. Portions of this chart may have been copied from previous notes for continuity of care purp Rhonda Mendiola, COMPUTER SYSTEMS INFORMATION DIRECTOR - 12/29/2018 1:01 AM PDTPer RN's request, [...] Franki Carrizales MD - 12/28/2018 9:45 AM [facility] Service: Hospitalist Progress Note Hospital Day: [...] other chronic comorbidities who p resents to [facility] ER from [facility] on 12/27 for acute dyspnea/anginal [...] | | | | | | [address] [place] | | | | | | [address] | | | | | | | [...] | | | | | performed at [facility], [address] | | | | | [facility], | | | | | [place] [address] | | | + + + + + + + | Specimen | + + | Blood | + + + + + + + | Performing | Address | City/State/Zipcode | Phone Number | | Organization | | | | + + + + + | [facility] | [address] | [place] [address] | [phone] | | LABORATORY | [address] | | [...] (H) | 23 - 32 mmol/L | [facility] | | | | | LABORATORY | [...] | | | | | performed at [facility], [address] | | | | | [facility], | | | | | [place] [address] | | | + + + + + + + | Specimen | + + | Blood | + + + + + + + | Performing | Address | City/State/Zipcode | Phone Number | | Organization | | | | + + + + + | [facility] | [address] | [place] [address] | [phone] | | LABORATORY | Blvd. | | [...] | | | | | performed at [facility], [address] | | | | | [facility], | | | | | [place] [address] | | | + + + + + + + | Specimen | + + | Blood | + + + + + + + | Performing | Address | City/State/Zipcode | Phone Number | | Organization | | | | + + + + + | [facility] | [address] | [place] [address] | [phone] | | LABORATORY | Blvd. | | [...] (L)Comment: GFR <60: | >60 mL/min/1.73m2 | [facility] | | | CHRONIC KIDNEY DISEASE, [...] | | | | | performed at [facility], [facility] [address] | | | | | [facility], | | | | | [place] [address] | | | + + + + + + + + + + | Performing | Address | City/State/Zipcode | Phone Number | | Organization | | | | + + + + + | [facility] | [address] [place] [address] | [place] [address] | [phone] | | LABORATORY | Blvd. | | | + + + + + Magnesium (01/05/2019 6:12 AM) + + + + + | Component | Value | Ref Range | Performed At | + + + + + | MAGNESIUM | 2.1Comment: Testing | 1.7 - 2.4 mg/dL | [facility] | | | performed at [facility], [address] | | LABORATORY | | | [address], | | | | | [place] [address] | | | + + + + + + + | Specimen | + + | Blood | + + + + + + + | Performing | Address | City/State/Zipcode | Phone Number | | Organization | | | | + + + + + | [facility] | [address] | [place] [address] | [phone] | | LABORATORY | Blvd. | | [...] | [facility] | | | performed at [facility], [address] | | LABORATORY | | | [address], | | | | | [place] [address] | | | + + + + + + + | Specimen | + + | Blood | + + + + + + + | Performing | Address | City/State/Zipcode | Phone Number | | Organization | | | | + + + + + | [facility] | [address] | [place] [address] | [phone] | | LABORATORY | Blvd. | | [...] 9.7 | 8.5 - 10.5 mg/dL | [facility] | | | | | LABORATORY | + + + + + | Albumin | 3.0 (L) | 3.3 - 4.8 g/dL | [facility] | | | | | LABORATORY | + + + + + | PHOSPHORUS | 3.1 | 2.3 - 4.8 mg/dL | [facility] | | | | | LABORATORY | + + + + + | EGFR | 31 (L)Comment: GFR <60: | >60 mL/min/1.73m2 | [facility] | | | CHRONIC KIDNEY DISEASE, | [...] | | | | | performed at [facility], [address] | | | | | [facility], | | | | | [place] [address] | | | + + + + + + + + + + | Performing | Address | City/State/Zipcode | Phone Number | | Organization | | | | + + + + + | [facility] | [address] | [place] [address] | [phone] | | LABORATORY | [facility]. | | | + + + + + Magnesium (01/04/2019 5:49 AM) + + + + + | Component | Value | Ref Range | Performed At | + + + + + | MAGNESIUM | 2.1Comment: Testing | 1.7 - 2.4 mg/dL | [facility] | | | performed at [facility], [address] | | LABORATORY | | | [address], | | | | | [place] [address] | | | + + + + + + + | Specimen | + + | Blood | + + + + + + + | Performing | Address | City/State/Zipcode | Phone Number | | Organization | | | | + + + + + | [facility] | [address] | [place] [address] | [phone] | | LABORATORY | Blvd. | | | + + + + + CBC W/Auto Diff (Reflex to Manual) (01/04/2019 5:49 AM) + + + + + | Component | Value | Ref Range | Performed At | + + + + + | WBC | 8.75 | 3.80 - 11.00 K/uL | [facility] | | | | | LABORATORY | [...] | [facility] | | | performed at [facility], [address] | | LABORATORY | | | [address], | | | | | [place] [address] | | | + + + + + + + | Specimen | + + | Blood | + + + + + + + | Performing | Address | City/State/Zipcode | Phone Number | | Organization | | | | + + + + + | [facility] | [address] | [place] [address] | [phone] | | LABORATORY | [place]. | | [...] (L)Comment: GFR <60: | >60 mL/min/1.73m2 | [facility] | | | CHRONIC KIDNEY [...] | | | | | performed at [facility], [address] | | | | | [facility], | | | | | [place] [address] | | | + + + + + + + + + + | Performing | Address | City/State/Zipcode | Phone Number | | Organization | | | | + + + + + | [facility] | [address] | [place] [address] | [phone] | | LABORATORY | Blvd. | | | + + + + + Magnesium (01/03/2019 5:44 AM) + + + + + | Component | Value | Ref Range | Performed At | + + + + + | MAGNESIUM | 2.3Comment: Testing | 1.7 - 2.4 mg/dL | [facility] | | | performed at [facility], [address] | | LABORATORY | | | [facility], | | | | | [place] [address] | | | + + + + + + + | Specimen | + + | Blood | + + + + + + + | Performing | Address | City/State/Zipcode | Phone Number | | Organization | | | | + + + + + | [facility] | [address] [place] [address] | [place] [address] | [phone] | | LABORATORY | Blvd. | | [...] | [facility] | | | performed at [facility], [address] | | LABORATORY | | | [address], | | | | | [place] [address] | | | + + + + + + + | Specimen | + + | Blood | + + + + + + + | Performing | Address | City/State/Zipcode | Phone Number | | Organization | | | | + + + + + | [facility] | [address] | [place] [address] | [phone] | | LABORATORY | Blvd. | | [...] | | | | | performed at [facility], [address] | | | | | [facility], | | | | | [place] [address] | | | + + + + + + + + + + | Performing | Address | City/State/Zipcode | Phone Number | | Organization | | | | + + + + + | [facility] | [address] | [place] [address] | [phone] | | LABORATORY | Blvd. | | | + + + + + Magnesium (01/02/2019 5:52 AM) + + + + + | Component | Value | Ref Range | Performed At | + + + + + | MAGNESIUM | 2.3Comment: Testing | 1.7 - 2.4 mg/dL | [facility] | | | performed at [facility], [address] | | LABORATORY | | | [facility], | | | | | [place] [address] | | | + + + + + + + | Specimen | + + | Blood | + + + + + + + | Performing | Address | City/State/Zipcode | Phone Number | | Organization | | | | + + + + + | [facility] | [address] | [place] [address] | [phone] | | LABORATORY | Blvd. | | [...] | [facility] | | | performed at [facility], [address] | | LABORATORY | | | [address], | | | | | [place] [address] | | | + + + + + + + | Specimen | + + | Blood | + + + + + + + | Performing | Address | City/State/Zipcode | Phone Number | | Organization | | | | + + + + + | [facility] | [address] | [place] [address] | [phone] | | LABORATORY | Blvd. | | [...] (L)Comment: GFR <60: | >60 mL/min/1.73m2 | [facility] | | | CHRONIC KIDNEY DISEASE, | [...] | | | | | performed at [facility], [address] | | | | | [facility], | | | | | [place] [address] | | | + + + + + + + | Specimen | + + | Blood | + + + + + + + | Performing | Address | City/State/Zipcode | Phone Number | | Organization | | | | + + + + + | [facility] | [address] | [place] [address] | [phone] | | LABORATORY | Blvd. | | | + + + + + Magnesium (01/01/2019 5:42 AM) + + + + + | Component | Value | Ref Range | Performed At | + + + + + | MAGNESIUM | 2.3Comment: Testing | 1.7 - 2.4 mg/dL | [facility] | | | performed at [facility], [address] | | LABORATORY | | | [facility], | | | | | [place] [address] | | | + + + + + + + | Specimen | + + | Blood | + + + + + + + | Performing | Address | City/State/Zipcode | Phone Number | | Organization | | | | + + + + + | [facility] | [address] | [place] [address] | [phone] | | LABORATORY | Blvd. | | [...] | [facility] | | | performed at [facility], [address] | | LABORATORY | | | [address], | | | | | [place] [address] | | | + + + + + + + | Specimen | + + | Blood | + + + + + + + | Performing | Address | City/State/Zipcode | Phone Number | | Organization | | | | + + + + + | [facility] | [address] | [place] [address] | [phone] | | LABORATORY | Blvd. | | | + + + + + PROCALCITONIN (12/31/2018 5:21 AM) + + + + + | Component | Value | Ref Range | Performed At | + + + + + | PROCALCITONIN | 0.16Comment: | <0.5 ng/mL | [facility] | | | INTERPRETIVE | | [...] | | | | | at [facility];[address] [place] [address] | | | | | [facility];[place] [address] | | | + + + + + + + + + + | Performing | Address | City/State/Zipcode | Phone Number | | Organization | | | | + + + + + | [facility] | [address] | [facility] [address] | | + + + + + [...] 9.1 | 8.5 - 10.5 mg/dL | [facility] | | | | | LABORATORY | + + + + + | Albumin | 3.0 (L) | 3.3 - 4.8 g/dL | [facility] | | | | | LABORATORY | + + + + + | PHOSPHORUS | 4.6 | 2.3 - 4.8 mg/dL | [facility] | | | | | LABORATORY | + + + + + | EGFR | 20 (L)Comment: GFR <60: | >60 mL/min/1.73m2 | [facility] [facility] | | | CHRONIC KIDNEY DISEASE, | [...] | | | | | performed at [facility], [address] | | | | [facility], | | | | | [place] [address] | | | + + + + + + + + + + | Performing | Address | City/State/Zipcode | Phone Number | | Organization | | | | + + + + + | [facility] | [address] | [place] [address] | [phone] | | LABORATORY | Blvd. | | | + + + + + Magnesium (12/31/2018 5:21 AM) + + + + + | Component | Value | Ref Range | Performed At | + + + + + | MAGNESIUM | 2.5 (H)Comment: Testing | 1.7 - 2.4 mg/dL | [facility] | | | performed at [facility], [address] | | LABORATORY | | | [address] [facility], | | | | | [place] [address] | | | + + + + + + + | Specimen | + + | Blood | + + + + + + + | Performing | Address | City/State/Zipcode | Phone Number | | Organization | | | | + + + + + | [facility] | [address] | [place] [address] | [phone] | | LABORATORY | Blvd. | | [...] | [facility] | | | performed at [facility], [address] | | LABORATORY | | | [address], | | | | | [place] [address] | | | + + + + + + + | Specimen | + + | Blood | + + + + + + + | Performing | Address | City/State/Zipcode | Phone Number | | Organization | | | | + + + + + | [facility] | [address] [place] [address] | [place] [address] | [phone] | | LABORATORY | Blvd. | | [...] | + + + + + | [facility] | [address] | [place] [address] | | + + + + + [...] 8.9 | 8.5 - 10.5 mg/dL | [facility] | | | | | LABORATORY | + + + + + | Albumin | 3.0 (L) | 3.3 - 4.8 g/dL | [facility] | | | | | LABORATORY | + + + + + | PHOSPHORUS | 3.8 | 2.3 - 4.8 mg/dL | [facility] | | | | | LABORATORY | + + + + + | EGFR | 23 (L)Comment: GFR <60: | >60 mL/min/1.73m2 | [facility] | | | CHRONIC KIDNEY DISEASE, | [...] [address] | | | | | [facility], | | | | | [place] [address] | | | + + + + + + + + + + | Performing | Address | City/State/Zipcode | Phone Number | | Organization | | | | + + + + + | [facility] | [address] [place] [address] | [place] [address] | [phone] | | LABORATORY | [address]. | | | + + + + + Magnesium (12/30/2018 5:28 AM) + + + + + | Component | Value | Ref Range | Performed At | + + + + + | MAGNESIUM | 1.9Comment: Testing | 1.7 - 2.4 mg/dL | [facility] | | | performed at [facility], [facility] [address] | | LABORATORY | | | [facility], | | | | | [place] [address] | | | + + + + + + + | Specimen | + + | Blood | + + + + + + + | Performing | Address | City/State/Zipcode | Phone Number | | Organization | | | | + + + + + | [facility] | [address] | [place] [address] | [phone] | | LABORATORY | Blvd. | | [...] | [facility] | | | performed at [facility], [address] | | LABORATORY | | | [address], | | | | | [place] [address] | | | + + + + + + + | Specimen | + + | Blood | + + + + + + + | Performing | Address | City/State/Zipcode | Phone Number | | Organization | | | | + + + + + | [facility] | [address] | [place] [address] | [phone] | | LABORATORY | Blvd. | | | + + + + + Magnesium (12/29/2018 5:55 AM) + + + + + | Component | Value | Ref Range | Performed At | + + + + + | MAGNESIUM | 1.9Comment: Testing | 1.7 - 2.4 mg/dL | [facility] | | | performed at [facility], [address] | | LABORATORY | | | [address], | | | | | [place] [address] | | | + + + + + + + | Specimen | + + | Blood | + + + + + + + | Performing | Address | City/State/Zipcode | Phone Number | | Organization | | | | + + + + + | [facility] | [address] | [place] [address] | [phone] | | LABORATORY | Blvd. | | [...] | | | | | performed at [facility], [address] | | | | | [address], | | | | | [place] [address] | | | + + + + + + + | Specimen | + + | Blood | + + + + + + + | Performing | Address | City/State/Zipcode | Phone Number | | Organization | | | | + + + + + | [facility] | [address] | [place] [address] | [phone] | | LABORATORY | Blvd. | | [...] | [facility] | | | performed at [facility], [address] | | LABORATORY | | | [address], | | | | | [place] [address] | | | + + + + + + + | Specimen | + + | Blood | + + + + + + + | Performing | Address | City/State/Zipcode | Phone Number | | Organization | | | | + + + + + | [facility] | [address] | [place] [address] | [phone] | | LABORATORY | Blvd. | | [...] + + | Performing | Address | City/State/[facility] Centercode | Phone Number | | Organization | | | | + + + + + | [facility] | [address] | [place] [address] | | + + + + + NM cardiovascular stress treadmill (12/28/2018 12:54 PM) + + + + + | Component | Value | Ref Range | Performed At | + + + + + | Diagnosis | Non diagnostic | | [facility] | | | pharmacological EKG | [...] | + + + + + | [facility] | [address] [facility]. | [place] [address] | | + + + + + Magnesium (12/28/2018 5:18 AM) + + + + + | Component | Value | Ref Range | Performed At | + + + + + | MAGNESIUM | 1.7Comment: Testing | 1.7 - 2.4 mg/dL | [facility] | | | performed at [facility], [address] | | LABORATORY | | | [address], | | | | | [place] [address] | | | + + + + + + + | Specimen | + + | Blood | + + + + + + + | Performing | Address | City/State/Zipcode | Phone Number | | Organization | | | | + + + + + | [facility] | [address] | [place] [address] | [phone] | | LABORATORY | Blvd. | | [...] | | | | | performed at [facility], [address] | | | | | [facility], | | | | | [place] [address] | | | + + + + + + + | Specimen | + + | Blood | + + + + + + + | Performing | Address | City/State/Zipcode | Phone Number | | Organization | | | | + + + + + | [facility] | [address] | [place] [address] | [phone] | | LABORATORY | Blvd. | | [...] | [facility] | | | performed at [facility], [address] | | LABORATORY | | | [address], | | | | | [place] [address] | | | + + + + + + + | Specimen | + + | Blood | + + + + + + + | Performing | Address | City/State/Zipcode | Phone Number | | Organization | | | | + + + + + | [facility] | [address] | [place] [address] | [phone] | | LABORATORY | Blvd. | | | + + + + + Reticulocyte count (12/27/2018 4:43 PM) + + + + + | Component | Value | Ref Range | Performed At | + + + + + | RETICULOCYTES | 1.4Comment: Testing | 0.4 - 2.7 % | [facility] | | | performed at [facility];[address] | | | | | [facility];[place] | | | | | [address] | | | + + + + + + + + + + | Performing | Address | City/State/Zipcode | Phone Number | | Organization | | | | + + + + + | [facility] | [address] | [place] [address] | | + + + + + [...] difficult study with suboptimal views. 2. | [facility] | | Adequate EF 3. Severe bi-atrial [...] | | calcified. Aortic Valve: There is jxnj-am-vjuxhbuh aortic | | | regurgitation. Mitral Valve: [...] | | mmHg TR Vmax: 3.49 m/s Camera Machinist: ROSY Authenticated by: | | | Pedrito Taylor MD Report Date/Time: 12-27-2018 13:58:10 | | + + + + + | Procedure Note | + + | Edgardo Piper In - 12/27/2018 1:58 PM PDT Patient Name: Kel Joshi of | | : 1940Accession: [id number] Physician: Pedrito Taylor | | ------REPORT | [...] is mildly calcified. Aortic Valve: There is ietx-rz-orqukafm aortic | | regurgitation.Mitral Valve: Mild mitral [...] mlLAESV Index (A-L): 109.85 ml/m2LAAs A2C: 64.13 [id number] A-L A2C: 351.26 | | mlLALs A2C: 9.93 cmLAAs A4C: 45.52 [id number] A-L A4C: 173.98 mlLALs A4C: 10.11 | | cmTAPSE: 1.10 cmHR: 80.22 BPMAV maxP.70 mmHgAV meanP.31 mmHgAV Vmax: | | 1.55 m/Davie Vmean: 1.10 m/Davie VTI: 33.13 cmAVA Vmax: 2.73 cm2AVA (VTI): 2.82 | | [id number] Vmax: 0.00 cm2/m2AVAI (VTI): 0.00 cm2/m2LVCI Dopp: 2.84 l/ompy6HHNA Dopp: | | 6.45 l/minHR: 68.91 BPMLVOT [...] |TR Vmax: 3.49 m/s | | | |Camera Machinist: MW | |Authenticated by: Pedrito Taylor MD [...] | + + + + + | [facility] | [address] | [place] [address] | | + + + + + Troponin I (12/27/2018 7:51 AM) + + + + + | Component | Value | Ref Range | Performed At | + + + + + | TROPONIN I | 0.046 (H)Comment: 0.04 | 0.00 - 0.04 ng/mL | [facility] | | | ng/mL or | [...] | | | | | at [facility] [address] | | | | | staci;[place] [address] | | | + + + + + + + | Specimen | + + | Blood | + + + + + + + | Performing | Address | City/State/Zipcode | Phone Number | | Organization | | | | + + + + + | [facility] | [address] | [place] [address] | | + + + + + Brain natriuretic peptide (12/27/2018 5:31 AM) + + + + + | Component | Value | Ref Range | Performed At | + + + + + | BRAIN NATRIURETIC | 471.32 (H)Comment: | 0 - 100 pg/mL | [facility] | | PEPTIDE | Testing performed at | | | | | [facility];[address] | | | | [address];[place] [address] | | | + + + + + + + | Specimen | + + | Blood | + + + + + + + | Performing | Address | City/State/Zipcode | Phone Number | | Organization | | | | + + + + + | [facility] | [address] | [place] [address] | | + + + + + [...] | | | | | [place] [address] | | | + + + + + + + | Specimen | + + | Blood | + + + + + + + | Performing | Address | City/State/Zipcode | Phone Number | | Organization | | | | + + + + + | [facility] | [address] | [place] [address] | [phone] | | LABORATORY | Blvd. | | | + + + + + Ferritin (12/27/2018 5:17 AM) + + + + + | Component | Value | Ref Range | Performed At | + + + + + | FERRITIN | 33Comment: Testing | 11 - 450 ng/mL | [facility] | | | performed at [facility], [address] | | LABORATORY | | | [facility] [place], | | | | | [place] [address] | | | + + + + + + + | Specimen | + + | Blood | + + + + + + + | Performing | Address | City/State/Zipcode | Phone Number | | Organization | | | | + + + + + | [facility] | [address] | [place] [address] | [phone] | | LABORATORY | Blvd. | | | + + + + + Troponin I (12/27/2018 5:17 AM) + + + + + | Component | Value | Ref Range | Performed At | + + + + + | TROPONIN I | 0.048 (H)Comment: 0.04 | 0.00 - 0.04 ng/mL | [facility] | | | ng/mL or | [...] | | | | | at [facility] [address] | | | | | [address];[place] [address] | | | + + + + + + + | Specimen | + + | Blood | + + + + + + + | Performing | Address | City/State/Zipcode | Phone Number | | Organization | | | | + + + + + | [facility] | [address] | [place] [address] | | + + + + + Glycohemoglobin A1c (12/27/2018 5:17 AM) + + + + + | Component | Value | Ref Range | Performed At | + + + + + | HEMOGLOBIN A1C | 5.5Comment: HbA1c method | 4.0 - 6.0 % | [facility] | | | is certified by [facility] | | LABORATORY | | | and [...] | | | | | performed at [facility], [address] | | | | | [facility], | | | | | [place] [address] | | | + + + + + + + | Specimen | + + | Blood | + + + + + + + | Performing | Address | City/State/Zipcode | Phone Number | | Organization | | | | + + + + + | [facility] | [address] [place] [address] | [place] [address] | [phone] | | LABORATORY | Blvd. | | | + + + + + TSH (12/27/2018 5:17 AM) + + + + + | Component | Value | Ref Range | Performed At | + + + + + | TSH | 1.500Comment: Testing | 0.450 - 5.100 uIU/mL | [facility] | | | performed at [facility], [address] | | LABORATORY | | | [facility], | | | | | [place] [address] | | | + + + + + + + | Specimen | + + | Blood | + + + + + + + | Performing | Address | City/State/Zipcode | Phone Number | | Organization | | | | + + + + + | [facility] | [address] | [place] [address] | [phone] | | LABORATORY | Blvd. | | [...] | [facility] | | | performed at [facility], [address] | | LABORATORY | | | [address], | | | | | [place] [address] | | | + + + + + + + | Specimen | + + | Blood | + + + + + + + | Performing | Address | City/State/Zipcode | Phone Number | | Organization | | | | + + + + + | [facility] | [address] | [place] [address] | [phone] | | LABORATORY | Blvd. | | [...] (L) | 23 - 32 mmol/L | [facility] | | | | | LABORATORY | [...] | | | | | performed at [facility], [address] | | | | | [address], | | | | | [place] [address] | | | + + + + + + + | Specimen | + + | Blood | + + + + + + + | Performing | Address | City/State/Zipcode | Phone Number | | Organization | | | | + + + + + | [facility] | [address] | [place] [address] | [phone] | | LABORATORY | [address] | | | + + + + + Phosphorus (12/27/2018 5:17 AM) + + + + + | Component | Value | Ref Range | Performed At | + + + + + | PHOSPHORUS | 3.2Comment: Testing | 2.3 - 4.8 mg/dL | [facility] | | | performed at [facility], [address] | | LABORATORY | | | [address], | | | | | [place] [address] | | | + + + + + + + | Specimen | + + | Blood | + + + + + + + | Performing | Address | City/State/Zipcode | Phone Number | | Organization | | | | + + + + + | [facility] | [address] | [place] [address] | [phone] | | LABORATORY | Blvd. | | | + + + + + Magnesium (12/27/2018 5:17 AM) + + + + + | Component | Value | Ref Range | Performed At | + + + + + | MAGNESIUM | 2.0Comment: Testing | 1.7 - 2.4 mg/dL | [facility] | | | performed at [facility], [address] | | LABORATORY | | | [facility], | | | | | [place] [address] | | | + + + + + + + | Specimen | + + | Blood | + + + + + + + | Performing | Address | City/State/Zipcode | Phone Number | | Organization | | | | + + + + + | [facility] | [address] | [place] [address] | [phone] | | LABORATORY | Blvd. | | [...] Testing | 0.00 - 0.10 K/uL | [facility] | | | performed at [facility], [facility] [address] | | LABORATORY | | | [address] [place], | | | | | [place] [address] | | | + + + + + + + | Specimen | + + | Blood | + + + + + + + | Performing | Address | City/State/Zipcode | Phone Number | | Organization | | | | + + + + + | [facility] | [address] | [place] [address] | [phone] | | LABORATORY | Blvd. | | [...] + + + + | Calculated R Mobile | 10 | degrees | [facility] | + + + + + | Calculated T Mobile | 0 | degrees | [facility] [...] | + + + + + | [facility] | [address] | [place] [address] | | + + + + + [...] 12:10 | | | | | Once, [facility] 01/07/19 at 1230, For 1 | | PDT | | | | | dose | | | | | | + +-------+ +--------+---+---+ +---+---+ | | | +---+---+ + +-------+ +--------+---+---+ | potassium chloride (K-DUR) CR | Given | | 30 mEq | | | | tablet 30 mEq 30 mEq, Oral, | | 9 12:00 | | | | | Once, [facility] 01/04/19 at 1200, For 1 | | [...]
--- OUTSIDE RECORDS SUMMARY | ~2019-01-14 | XMS | Encounter Summary ---
Demographics + + + | Address | [address] | | | [place] [address] | + + + | Home Phone | | + + + | Preferred Language | Unknown | + + + | Marital Status | | + + + | Congregational Affiliation | Unknown | + + + | Race | Unknown | + + + | Ethnic Group | Unknown | + + + Author + + + | Author | [facility] | + + + | Organization | [facility] | + + + | Address | [...] Team Providers + +------+ + | Care Nnps Name | Role | Phone | + +------+ + | Kushal Costa MD | PCP | | + +------+ + Reason for Visit +--------+ + | Reason | Comments | +--------+ + | Other | B/P Log 09/30/18-11/24/18 | +--------+ + Encounter Details +--------+ + + + + | Date | Type | Department | Care Team | Description | +--------+ + + + + | 11/24/ | Documentati | [facility] | Jatinder, | Celina (B/P Log | | 2019 | on Only | [address] | [place] | 09/30/18-11/24/18) | | | | [address] | | | | | | [place] [address] | | | | | | [phone] | | | +--------+ + + + [...] [place] | | | | | | [address] | | | | | | | | +--------+ + + + + as of this encounter Visit Diagnoses Not on filein this encounter"
--- OUTSIDE RECORDS SUMMARY | ~2019-01-14 | XMS | Clinical Summary ---
Demographics + + + | Address | [address] | | | [place] [address] | + + + | Home Phone | | + + + | Preferred Language | Unknown | + + + | Marital Status | Single | + + + | Faith Affiliation [...] Phone | + + +---------+ + | NONE,NONE | ECON | Unknown | Unavailable | + + +---------+ + Care Team Providers + +------+ + | Care Senior Planning Analyst Name | Role | Phone | + +------+ + PP | Unavailable | + +------+ + Source Comments PUSHPA is fully live on both [facility] and [facility] Allergies Not on File Current Medications Not on file Active Problems Not [...] on file | | + + + Plan of Treatment + + + + + | Health Maintenance | Due Date | Last Done | Comments | + + + + + | Pneumococcal (Adult) | | | | | (1 of 2 - PCV13) | 5 | | | + + + + + | Influenza (Flu) | | | | | vaccination (#1) | 8 | | | + + + + + Results Not on filefrom Last 3 Months"
--- OUTSIDE RECORDS SUMMARY | ~2019-01-14 | XMS | Encounter Summary ---
Demographics + + + | Address | [address] | | | [place] [address] | + + + | Home Phone | | + + + | Preferred Language | Unknown | + + + | Marital Status | | + + + | Hoahaoism Affiliation | Unknown | + + + | Race | Unknown | + + + | Ethnic Group | Unknown | + + + Author + + + | Author | [facility] | + + + | Organization | [facility] | + + + | Address | [...] Team Providers + +------+ + | Care Lithographic Retoucher Apprentice Name | Role | Phone | + +------+ + | Kushal Costa MD | PCP | | + +------+ + Encounter Details +--------+ + + + + | Date | Type | Department | Care Team | Description | +--------+ + + + + | 10/23/ | Orders Only | [facility] | Jatinder, | CKD (chronic kidney | | 2019 | | [address] | [place] | disease) stage 3, | | | | [address] | | GFR 30-59 ml/min | | | | [place] [address] | | ([facility]); Hypokalemia; | | | | [phone] | | Bilateral lower | | | [...] | | | | | ([facility]) | +--------+ + + + + Social [...] | | | | | | [address] [place], [place] | | | | | | [address] | | | | | | | [...] | | + +--------+ + + + in this encounter Results Renal function panel (10/23/2018 9:05 AM) + + + + + | Component | Value | Ref Range | Performed At | + + + + + | GLUCOSE | 89 | 70 - 100 mg/dL | [facility] | | | | | LABORATORY | + + + + + | BUN | 96 (A) | 6 - 23 mg/dL | [facility] | | | | | LABORATORY | + + + + + | CREATININE | 2.84 (A) | 0.70 - 1.18 mg/dL | [facility] | | | | | LABORATORY | + + + + + | PHOSPHORUS | 4.5 | 2.5 - 5.0 mg/dL | [facility] | | | | | LABORATORY | + + + + + | Albumin | 3.7 | 3.5 - 5.0 | [facility] | | | | | LABORATORY | + + + + + | SODIUM | 136 | 132 - 143 mmol/L | [facility] | | | | | LABORATORY | + + + + + | POTASSIUM | 3.2 (A) | 3.6 - 5.1 mmol/L | [facility] | | | | | LABORATORY | + + + + + | CHLORIDE | 96 | 95 - 112 mmol/L | [facility] | | | | | LABORATORY | + + + + + | CO2 | 22 | 19 - 31 mmol/L | [facility] | | | | | LABORATORY | + + + + + | ANION GAP AGAP | 21.2 (A) | 7 - 21 mmol/L | [facility] | | | | | LABORATORY | + + + + + | GFR MDRD Non Af Amer | | | [facility] | | | | | LABORATORY | + + + + + | Phosphorus,Inorganic | | | [facility] | | | | | LABORATORY | + + + + + | BUN/CREAT | 33.8 (A) | 6.0 - 28.6 | [facility] | | | | | LABORATORY | + + + + + | CALCIUM | 9.4 | 8.5 - 10.3 mg/dL | [facility] | | | | | LABORATORY | + + + + + | EGFR | 22 (A) | 60 - 140 mg/dL | [facility] | | | | | LABORATORY | + + + + + + + | Specimen | + + | Blood | + + + + + + + | Performing | Address | City/State/Zipcode | Phone Number | | Organization | | | | + + + + + | [facility] | [address] [facility] | [place] [address] | [phone] | | LABORATORY | Blvd. | | | + + + + + CBC W/Auto Diff (Reflex to Manual) (10/23/2018 9:05 AM) + + + + + | Component | Value | Ref Range | Performed At | + + + + + | WBC | 8.7 | 4.5 - 11.0 10^3/mL | [facility] | | | | | LABORATORY | + + + + + | RBC | 3.69 (A) | 4.3 - 5.7 10^6/ L | [facility] | | | | | LABORATORY | + + + + + | HGB | 11.1 (A) | 13.5 - 18.0 g/dL | [facility] | | | | | LABORATORY | + + + + + | HCT | 11.1 (A) | 13.5 - 18.0 % | [facility] | | | | | LABORATORY | + + + + + | MCV | 94.6 | 81 - 99 fL | [facility] [...] + + | PLT | 197 | 140 - 440 K/ L | [facility] | | | | | LABORATORY | + + + + + | RDW SD | | % | [facility] | | | | | LABORATORY | + + + + + | MPV | | fL | [facility] | | | | | LABORATORY | + + + + + | DIFF TYPE | | | [facility] | | | | | LABORATORY | + + + + + | NEUTROPHILS | | % | [facility] | | | | | LABORATORY | + + + + + | LYMPHOCYTES | | % | [facility] | | | | | LABORATORY | + + + + + | MONOCYTES | | % | [facility] | | | | | LABORATORY | + + + + + | EOSINOPHILS | | % | [facility] | | | | | LABORATORY | + + + + + | BASOPHILS | | % | [facility] | | | [...] + + + | [facility] | [address] | [place] [address] | [phone] | | LABORATORY | [address] | | | + + + + + PTH intact no calcium (10/23/2018 9:05 AM) + + + + + | Component | Value | Ref Range | Performed At | + + + + + | PTH INTACT NO | 128.9 (A) | 15 - 65 pg/mL | [facility] | | CALCIUM | | | LABORATORY | + + + + + + + | Specimen | + + | Blood | + + + + + + + | Performing | Address | City/State/Zipcode | Phone Number | | Organization | | | | + + + + + | [facility] | [address] | [place] [address] | [phone] | | LABORATORY | [address] | | | + + + + + in this encounter Visit Diagnoses + + | Diagnosis | + + | CKD (chronic kidney disease) stage 3, GFR 30-59 ml/min (HCC) | + + | Chronic kidney disease, Stage III (moderate) | + + | Hypokalemia | + + | Hypopotassemia | + + | Bilateral lower extremity edema | + + | Edema | + + | Essential hypertension, benign | + + | Hypervolemia, unspecified hypervolemia type | + + | Secondary hyperparathyroidism (HCC) | + + | Secondary hyperparathyroidism (of renal origin) | + +"
--- OUTSIDE RECORDS SUMMARY | ~2019-01-14 | XMS | Encounter Summary ---
Demographics + + + | Address | [address] | | | [place] [address] | + + + | Home Phone | | + + + | Preferred Language | Unknown | + + + | Marital Status | | + + + | Uatsdin Affiliation | Unknown | + + + | Race | Unknown | + + + | Ethnic Group | Unknown | + + + Author + + + | Author | [facility] | + + + | Organization | [facility] | + + + | Address | [...] Team Providers + +------+ + | Care Kettle Operator Name | Role | Phone | + +------+ + | Kushal Costa MD | PCP | | + +------+ + Reason for Visit +--------+ + | Reason | Comments | +--------+ + | Other | New referral to cardiology from Dr Costa | +--------+ + Encounter Details +--------+ + + + + | Date | Type | Department | Care Team | Description | +--------+ + + + + | 11/02/ | Documentati | [facility] | Yamilet Sidhu | Other (New referral | | 2019 | on Only | Cardiology Mara | [address] | to cardiology from | | | | [address] | | Dr Costa) | | | | [place] | | | | | | [address] | | | | | | [phone] | | | +--------+ + + + [...] [place] | | | | | | [address] | | | | | | | | +--------+ + + + + as of this encounter Visit Diagnoses Not on filein this encounter"
--- OUTSIDE RECORDS SUMMARY | ~2019-01-14 | XMS | Clinical Summary ---
Demographics + + + | Address | [address] | | | [place] [address] | + + + | Home Phone | | + + + | Preferred Language | Unknown | + + + | Marital Status | | + + + | Orthodoxy Affiliation | Unknown | + + + | Race | Unknown | + + + | Ethnic Group | Unknown | + + + Author + + + | Author | [facility] | + + + | Organization | [facility] | + + + | Address | [...] Team Providers + +------+ + | Care Business Support Professional Name | Role | Phone | + [...] + + | IZZY (acute kidney injury) ([facility]) | 01/06/2019 | + + + | [...] stage 3, GFR 30-59 ml/min ([facility]) | 10/27/2017 | + + + | [...] | | | : | | | [phone]/ | | | 079 | | | [...] | | | 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 | | | Wound | | | [...] | | | I[place], | | | [id number] | | | [address], [place] | | | [address] | | | n [place] | | | [phone] | | | [phone] | | | [...] | | | [place] | | | [id number] | | | [phone] | | | [...] 2019 | on Only | | J, MANAGER SERVICES | records) | +--------+ +---+ + + | 11/02/ | Documentati | | Yamilet Sidhu | Other (New referral | | 2019 | on Only | | J, MANAGER SERVICES | to cardiology from | | | [...] ml/min | | | | | | ([facility]); Hypokalemia; | | | | | | Electrolyte | | | | | | imbalance risk; | | | | | | Secondary | | | | | | hyperparathyroidism | | | | | | ([facility]); Hyperuricemia | +--------+ +---+ + + | [...] ml/min | | | | | | ([facility]); Hypokalemia; | | | | | | [...] [place] | | | | | | [address] | | | | | | | [...] | performed at [facility], [address] | | | | | [facility], | | | | | [place] [address] | | | + + + + + + + | Specimen | + + | Blood | + + + + + + + | Performing | Address | City/State/Zipcode | Phone Number | | Organization | | | | + + + + + | [facility] | [address] | [place] [address] | [phone] | | LABORATORY | Blvd. | | [...] Testing | 0.00 - 0.10 K/uL | [facility] | | | performed at [facility], [address] | | LABORATORY | | | [address], | | | | | [place] [address] | | | + + + + + + + | Specimen | + + | Blood | + + + + + + + | Performing | Address | City/State/Zipcode | Phone Number | | Organization | | | | + + + + + | [facility] | [address] | [place] [address] | [phone] | | LABORATORY | Blvd. | | [...] W | | LABORATORY | | | [facility], | | | | | [place] [address] | | | + + + + + + + | Specimen | + + | Blood | + + + + + + + | Performing | Address | City/State/Zipcode | Phone Number | | Organization | | | | + + + + + | [facility] | [address] | [place] [address] | [phone] | | LABORATORY | Blvd. | | | + + + + + PROCALCITONIN (12/31/2018 5:21 AM) + + + + + | Component | Value | Ref Range | Performed At | + + + + + | PROCALCITONIN | 0.16Comment: | <0.5 ng/mL | [facility] | | | INTERPRETIVE [...] | | | | | at [facility];[address] [place] [address] | | | | | [facility];[place] [address] | | | + + + + + + + + + + | Performing | Address | City/State/Zipcode | Phone Number | | Organization | | | | + + + + + | [facility] | [address] | [place] [address] | | + + + + + [...] | | .49 Severe Signed by: Jeffery Rmaos | | | Sign Date/Time: 12/30/2018 12:43 [...] [facility] | [address] | [place] [address] | | + + + + + [...] (L)Comment: GFR <60: | >60 mL/min/1.73m2 | [facility] | | | CHRONIC KIDNEY [...] the | | | | | MDRD IDWI traceable | | | | | equation.Testing | | | | | performed at [facility], [address] | | | | | [facility], | | | | | [place] [address] | | | + + + + + + + | Specimen | + + | Blood | + + + + + + + | Performing | Address | City/State/Zipcode | Phone Number | | Organization | | | | + + + + + | [facility] | [address] | [place] [address] | [phone] | | LABORATORY | [address] | | [...] RADIOLOGY | [address] | [place] [address] | | + + + + + NM cardiovascular stress treadmill (12/28/2018 12:54 PM) + + + + + | Component | Value | Ref Range | Performed At | + + + + + | Diagnosis | Non diagnostic | | [facility] E[facility] | | | pharmacological [...] | + + + + + | [facility] | [address] | [place] [address] | | + + + + + Reticulocyte count (12/27/2018 4:43 PM) + + + + + | Component | Value | Ref Range | Performed At | + + + + + | RETICULOCYTES | 1.4Comment: Testing | 0.4 - 2.7 % | [facility] | | | performed at [facility];[address] | | | | [address];[place] | | | | | [address] | | | + + + + + + + + + + | Performing | Address | City/State/Zipcode | Phone Number | | Organization | | | | + + + + + | [facility] | [address] | [place] [address] | | + + + + + [...] | | | ------REPORT ADDENDED------ INDICATIONS acute AK | | | CONCLUSIONS 1. This was [...] | | calcified. Aortic Valve: There is zywe-ji-hckgtvrz aortic | | | regurgitation. Mitral Valve: [...] | | mmHg TR Vmax: 3.49 m/s Exchange Teller: ROSY Authenticated by: | | | Pedrito Taylor MD Report Date/Time: 12-27-2018 13:58:10 | | + + + + + | Procedure Note | + + | Feliz, Rad Results In - 12/27/2018 1:58 PM PDT Patient Name: Kel Joshi of | | : 1940Accession: [id number] Physician: Pedrito Taylor | | ------REPORT | [...] is mildly calcified. Aortic Valve: There is tmmp-so-ibxbavuc aortic | | regurgitation.Mitral Valve: Mild mitral [...] mlLAESV Index (A-L): 109.85 ml/m2LAAs A2C: 64.13 [id number] A-L A2C: 351.26 | | mlLALs A2C: 9.93 cmLAAs A4C: 45.52 fk8FQRUM A-L A4C: 173.98 mlLALs A4C: 10.11 | | cmTAPSE: 1.10 cmHR: 80.22 BPMAV maxP.70 mmHgAV meanP.31 mmHgAV Vmax: | | 1.55 m/Davie Vmean: 1.10 m/Davie VTI: 33.13 cmAVA Vmax: 2.73 cm2AVA (VTI): 2.82 | | sc5IYXL Vmax: 0.00 cm2/m2AVAI (VTI): 0.00 cm2/m2LVCI Dopp: 2.84 l/nmad6WKNT Dopp: | | 6.45 l/minHR: 68.91 BPMLVOT [...] |TR Vmax: 3.49 m/s | | | |Exchange Teller: MW | |Authenticated by: Pedrito Taylor MD [...] | + + + + + | [facility] | [address] | [place] [address] | | + + + + + Troponin I (12/27/2018 7:51 AM)Only the most recent of 2 results within the time period is included. + + + + + | Component | Value | Ref Range | Performed At | + + + + + | TROPONIN I | 0.046 (H)Comment: 0.04 | 0.00 - 0.04 ng/mL | [facility] | | | ng/mL [...] | | | | | at [facility];[address] | | | | | [place] [address] | | | + + + + + + + | Specimen | + + | Blood | + + + + + + + | Performing | Address | City/State/Zipcode | Phone Number | | Organization | | | | + + + + + | [facility] | [address] | [place] [address] | | + + + + + Brain natriuretic peptide (12/27/2018 5:31 AM) + + + + + | Component | Value | Ref Range | Performed At | + + + + + | BRAIN NATRIURETIC | 471.32 (H)Comment: | 0 - 100 pg/mL | [facility] | | PEPTIDE | Testing performed at | | | | | [facility];[address] | | | | | [place] [address] | | | + + + + + + + | Specimen | + + | Blood | + + + + + + + | Performing | Address | City/State/Zipcode | Phone Number | | Organization | | | | + + + + + | [facility] | [address] | [place] [address] | | + + + + + [...] | | | | | [place] [address] | | | + + + + + + + | Specimen | + + | Blood | + + + + + + + | Performing | Address | City/State/Zipcode | Phone Number | | Organization | | | | + + + + + | [facility] | [address] | [place] [address] | [phone] | | LABORATORY | [address] | | | + + + + + TSH (12/27/2018 5:17 AM) + + + + + | Component | Value | Ref Range | Performed At | + + + + + | TSH | 1.500Comment: Testing | 0.450 - 5.100 uIU/mL | [facility] | | | performed at [facility], [address] | | LABORATORY | | | [address], | | | | | [place] [address] | | | + + + + + + + | Specimen | + + | Blood | + + + + + + + | Performing | Address | City/State/Zipcode | Phone Number | | Organization | | | | + + + + + | [facility] | [address] | [place] [address] | [phone] | | LABORATORY | [address] | | | + + + + + Phosphorus (12/27/2018 5:17 AM) + + + + + | Component | Value | Ref Range | Performed At | + + + + + | PHOSPHORUS | 3.2Comment: Testing | 2.3 - 4.8 mg/dL | [facility] | | | performed at [facility], [address] | | LABORATORY | | | [address], | | | | | [place] [address] | | | + + + + + + + | Specimen | + + | Blood | + + + + + + + | Performing | Address | City/State/Zipcode | Phone Number | | Organization | | | | + + + + + | [facility] | [address] | [place] [address] | [phone] | | LABORATORY | Blvd. | | [...] | 111Comment: Estimated | <154 mg/dL | [facility] | | GLUCOSE | Average Glucose | | LABORATORY | | | calculated from | | | | | hemoglobin A1c by use of | | | | | the ADA recommended | | | | | formula.Testing | | | | | performed at [facility], [address] | | | | | [facility], | | | | | [place] [address] | | | + + + + + + + | Specimen | + + | Blood | + + + + + + + | Performing | Address | City/State/Zipcode | Phone Number | | Organization | | | | + + + + + | [facility] | [address] | [place] [address] | [phone] | | LABORATORY | Blvd. | | | + + + + + Ferritin (12/27/2018 5:17 AM) + + + + + | Component | Value | Ref Range | Performed At | + + + + + | FERRITIN | 33Comment: Testing | 11 - 450 ng/mL | [facility] | | | performed at [facility], [address] | | LABORATORY | | | [facility] [place], | | | | | [place] [address] | | | + + + + + + + | Specimen | + + | Blood | + + + + + + + | Performing | Address | City/State/Zipcode | Phone Number | | Organization | | | | + + + + + | [facility] | [address] | [place] [address] | [phone] | | LABORATORY | Blvd. | | [...] | [facility] | | | performed at [facility], [address] | | LABORATORY | | | [address], | | | | | [place] [address] | | | + + + + + + + | Specimen | + + | Blood | + + + + + + + | Performing | Address | City/State/Zipcode | Phone Number | | Organization | | | | + + + + + | [facility] | [address] | [place] [address] | [phone] | | LABORATORY | [address]vd. | | [...] (L)Comment: GFR <60: | >60 mL/min/1.73m2 | [facility] | | | CHRONIC KIDNEY DISEASE, [...] | performed at [facility], [address] | | | | | [facility], | | | | | [place] [address] | | | + + + + + + + | Specimen | + + | Blood | + + + + + + + | Performing | Address | City/State/Zipcode | Phone Number | | Organization | | | | + + + + + | [facility] | [address] | [place] [address] | [phone] | | JACOBO | [place] | | [...] + + + + | Calculated R [place] | 10 | degrees | [facility] E[facility] | + + + + + | Calculated T [place] | 0 | degrees | [facility] EKG [...] | + + + + + | [facility] | [address] | [place] [address] | | + + + + + [...] | + + + + + | [facility] | [address] | [place] [address] | | + + + + + [...] + + + | Date Time | [id number] | | PACEART | | Interrogation | | | | | Session | | | | + + + + + | Implantable Pulse | MDC_IDC_ENUM_MFG_GDT | | PACEART | | Generator | | | | | Piece Meat Trimmer | | | | + + + + + | Implantable Pulse | 1190 Insignia I Ultra | | PACEART | | Generator Model | | | | + + + + + | Implantable Pulse | [id number] | | PACEART | | Generator Serial [...] | Guidant | | PACEART | | Piece Meat Trimmer | | | | + + + + + | Implantable Lead | FLEXTEND IS-1 Bi | | PACEART | | Model | Positive Fix RA/RV 59 cm | | | | | 4088 | | | + + + + + | Implantable Lead | [id number] | | PACEART | | Serial Number [...] | PACEART | | Hysterisis Rate | 747513^MDT PROG MARYLOU | | | | | [...] AME_UnknownComment: | | | | Terminal | 150753^MDT G MARYLOU | | | | | REFRACTORYPERIOD | | | | | PREVIOUSEVENTCHAMBER | | | | | RV^MDT - | | | | | VENTRICLE 386168^MDT | | | | | PROG MARYLOU [...] + + | Lead Channel | 640Comment: 2263319^MDT | ohm | PACEART | | Impedance Value | STAT LEADS | | | | | LOWPOWERCHANNEL RV | | | | | IMPEDANCE METHOD^MDT - | | | | | INSTRUMENT_INITIATED | | | | | 5392721^MDT STAT LEADS | | | | | LOWPOWERCHANNEL RV | | | | | IMPEDANCE POLARITY^MDT - | | | | | | | | | | 547876^[facility]_IDC_ENUM_POLA | | | | | RITY_BI^[facility] [id number]^M | | | | | DT STAT LEADS | | | | | LOWPOWERCHANNEL RV | | | | | IMPEDANCES POLE TYPE^MDT | | | | | - ANODE 8510318^MDT | | | | | STAT LEADS | | | | | LOWPOWERCHANNEL RV | | | | | IMPEDANCES POLE | | | | | LOCATION^MDT - | | | | | 097415^[facility]_IDC_ENUM_ELEC | | | | | TRODE_LOCATION_Unknown^M | | | | | [place] 4195604^MDT STAT | | | | | LEADS LOWPOWERCHANNEL RV | | | | | IMPEDANCES POLE | | | | | ELECTRODE^MDT - | | | | | 129825^[facility]_IDC_ENUM_ELEC | | | | | TRODE_NAME_Unknown^MDC | | | | | 0697208^MDT STAT LEADS | | | | | LOWPOWERCHANNEL RV | | | | | IMPEDANCES POLE TYPE^MDT | | | | | - | | | | | CATHODE 4435304^MDT | | | | | STAT LEADS | | | | | LOWPOWERCHANNEL RV | | | | | IMPEDANCES POLE | | | | | LOCATION^MDT - | | | | | 760546^[facility]_IDC_ENUM_ELEC | | | | | TRODE_LOCATION_Unknown^M | | | | | DC 1274167^MDT STAT | | | | | LEADS LOWPOWERCHANNEL RV | | | | | IMPEDANCES POLE | | | | | ELECTRODE^MDT - | | | | | 947589^[facility]_ENUM_ELEC | | | | | TRODE_NAME_Unknown^[facility] | | | | | | | | + + + + + | Lead Channel Sensing | 5.9Comment: 3406402^MDT | mV | PACEART | | Intrinsic Amplitude | STAT LEADS | | | | | LOWPOWERCHANNEL RV | | | | | SENSITIVITIES METHOD^MDT | | | | | - | | | | | INSTRUMENT_INITIATED | | | | | 8592799^MDT STAT LEADS | | | | | LOWPOWERCHANNEL RV | | | | | SENSITIVITIES | | | | | POLARITY^MDT - | | | | | 058964^[facility]_ENUM_POLA | | | | | RITY_Unknown^[facility] 1001 | | | | | 221^MDT STAT LEADS | | | | | LOWPOWERCHANNEL RV | | | | | SENSITIVITIES POLE | | | | | TYPE^MDT - | | | | | CATHODE 9463341^MDT | | | | | STAT LEADS | | | | | LOWPOWERCHANNEL RV | | | | | SENSITIVITIES POLE | | | | | LOCATION^MDT - | | | | | 494585^[facility]_ENUM_ELEC | | | | | TRODE_LOCATION_Unknown^M | | | | | DC 9610114^MDT STAT | | | | | LEADS LOWPOWERCHANNEL RV | | | | | SENSITIVITIES POLE | | | | | ELECTRODE^MDT - | | | | | 853977^[facility]_ENUM_ELEC | | | | | TRODE_NAME_Unknown^MDC | | | | | 7818834^MDT STAT LEADS | | | | | LOWPOWERCHANNEL RV | | | | | SENSITIVITIES POLE | | | | | TYPE^MDT - | | | | | ANODE 8370798^MDT | | | | | STAT LEADS | | | | | LOWPOWERCHANNEL RV | | | | | SENSITIVITIES POLE | | | | | LOCATION^MDT - | | | | | 463801^[facility]_IDC_ENUM_ELEC | | | | | TRODE_LOCATION_Unknown^M | | | | | DC 9800534^MDT STAT | | | | | LEADS LOWPOWERCHANNEL RV | | | | | SENSITIVITIES POLE | | | | | ELECTRODE^MDT - | | | | | 852841^[facility]_ENUM_ELEC | | | | | TRODE_NAME_Unknown^[facility] | | | | | | | | + + + + + | Lead Channel Pacing | 1.2 | V | PACEART | | Threshold Amplitude | | | | + + + + + | Lead Channel Pacing | 0.50Comment: 4914049^MDT | ms | PACEART | | Threshold Pulse | STAT LEADS | | | | Width | LOWPOWERCHANNEL RV | | | | | CAPTURES METHOD^MDT - | | | | | INSTRUMENT_INITIATED | | | | | 5325072^MDT STAT LEADS | | | | | LOWPOWERCHANNEL RV | | | | | CAPTURES POLARITY^MDT - | | | | | 863154^[facility]_IDC_ENUM_POLA | | | | | RITY_BI^MDC 5813092^M | | | | | DT STAT LEADS | | | | | LOWPOWERCHANNEL RV | | | | | CAPTURES POLE TYPE^MDT - | | | | | ANODE 0158656^MDT | | | | | STAT LEADS | | | | | LOWPOWERCHANNEL RV | | | | | CAPTURES POLE | | | | | LOCATION^MDT - | | | | | 566212^[facility]_IDC_ENUM_ELEC | | | | | TRODE_LOCATION_Unknown^M | | | | | DC 9909420^MDT STAT | | | | | LEADS LOWPOWERCHANNEL RV | | | | | CAPTURES POLE | | | | | ELECTRODE^MDT - | | | | | 965456^[facility]_IDC_ENUM_ELEC | | | | | TRODE_NAME_Unknown^[facility] | | | | | 7176039^MDT STAT LEADS | | | | | LOWPOWERCHANNEL RV | | | | | CAPTURES POLE TYPE^MDT - | | | | | CATHODE 8605656^MDT | | | | | STAT LEADS | | | | | LOWPOWERCHANNEL RV | | | | | CAPTURES POLE | | | | | LOCATION^MDT - | | | | | 957398^[facility]_IDC_ENUM_ELEC | | | | | TRODE_LOCATION_Unknown^M | | | | | DC 2544780^MDT STAT | | | | | LEADS LOWPOWERCHANNEL RV | | | | | CAPTURES POLE | | | | | ELECTRODE^MDT - | | | | | 791796^[facility]_IDC_ENUM_ELEC | | | | | TRODE_NAME_Unknown^[facility] | | | | | | | | + + + + + | Battery Status | [facility]_IDC_ENUM_BATTERY_STA | | PACEART | | | TUS_BOS [...] + | [place] Statistic RV | 18Comment: 2633241^MDT | % | PACEART | | Percent Paced | EVALUATION | | | | | DEPENDENCY^MDT - | | | | | NO 0236787^MDT | | | | | EVALUATION RHYTHM^MDT - | | | | | VS 65 BPM 5771858^MDT | | | | | EVALUATION | | | | | MISCELLANEOUSCOMMENT^MDT | | | | | - PACEMAKER | | | | | INTERROGATION REPORT | | | | | Name: Michael Cr | | | | | Cheryl: AMEE | | | | | REGGIE: | | | | | 1940MRN: | | | | | [id number] | | | | | cardiology provider: | | | | | Sparkle AlsamaraPrimary | | | | | electrophysiology | | | | | provider: NoneMode of | | | | | interrogation: Seen in | | | | | cardiac device clinic | | | | | Device: [place] | | | | | Scientific Battery [...] + + + + + | Specific [place], [place] | 1.015 | 1.005 - 1.030 [...] +------+-------+ + | MEDICARE | MEDICA | [id number] | | | [address] | | | RE | | | | [place] [address] | | | IP-OP | | | [...] Self | [birth year] Home: | [address] | | | al/Fam | | 1941 | [phone] | [place] | | | [place]y | | | [phone] | [phone] | + +--------+ +--------+ + +
--- OUTSIDE RECORDS SUMMARY | ~2019-01-14 | XMS | Encounter Summary ---
Demographics + + + | Address | [address] | | | [place] [address] | + + + | Home Phone | | + + + | Preferred Language | Unknown | + + + | Marital Status | | + + + | Temple Affiliation | 1041 | + + + | Race | Unknown | + + + | Ethnic Group | Unknown | + + + Author + + + | Author | [facility] | | | and [place] | + + + | Organization | [facility] | | | [...] Team Providers + +------+ + | Care Pinball Machine Repairer Name | Role | Phone | + [...] | (Primary Dx) | | | | [address], | [place], [place] | | | | | [place] [address] | [address] | | | | | [phone] | | | +--------+ + + + [...]
--- OUTSIDE RECORDS SUMMARY | ~2019-01-14 | XMS | Encounter Summary ---
Demographics + + + | Address | [address] | | | [place] [address] | + + + | Home Phone [...] + | Author | [facility] | + + + | Organization | [facility] | + + + | Address | [...] Team Providers + +------+ + | Care Boathouse Keeper Name | Role | Phone | + +------+ + | Kushal Costa MD | PCP | | + +------+ + Encounter Details +--------+ + + + + | Date | Type | Department | Care Team | Description | +--------+ + + + + | 12/26/ | Ancillary | [facility] | See, Medical | Chest pain, | | 2019 | Orders | [facility] X[facility] | Record [address] | unspecified type | | | | [address] | [address] [place] [address] | | | | | [place] [address] | [place] [address] | | | | | [phone] | [phone] | | | | | | | [...] | | | | | | [address] [place], [place] | | | | | | [address] | | | | | | | [...] [facility] | [address] | [place] [address] | | + + + + + in this encounter Visit Diagnoses + + | Diagnosis | + + | Chest pain, unspecified type | + +"
--- OUTSIDE RECORDS SUMMARY | ~2019-01-14 | XMS | Encounter Summary ---
Demographics + + + | Address | [address] | | | [place] [address] | + + + | Home Phone | | + + + | Preferred Language | Unknown | + + + | Marital Status | | + + + | Latter-Day Affiliation | Unknown | + + + | Race | Unknown | + + + | Ethnic Group | Unknown | + + + Author + + + | Author | [facility] | + + + | Organization | [facility] | + + + | Address | [...] + +------+ + | Care Director Of Pediatric Rehabilitation Name | Role | Phone | + [...] | +--------+ + + + + | 11/04/ | Pat | [facility] | Yamilet Sidhu | Other ([facility] | | 2019 | on Only | [facility] | [address] | records) | | | | [address] | | | | | | [place] [address] | | | | | | [place] [address] | | | | | | [phone] | | | +--------+ + + + [...] [place] | | | | | | [address] | | | | | | | | +--------+ + + + + as of this encounter Visit Diagnoses Not on filein this encounter"
--- OUTSIDE RECORDS SUMMARY | ~2019-01-14 | XMS | Encounter Summary ---
Demographics + + + | Address | [address] | | | [place] [address] | + + + | Home Phone | | + + + | Preferred Language | Unknown | + + + | Marital Status | | + + + | Advent Affiliation | Unknown | + + + | Race | Unknown | + + + | Ethnic Group | Unknown | + + + Author + + + | Author | [facility] [employer] | + + + | Organization | [facility] [employer] | + + + | Address | [...] Team Providers + +------+ + | Care Green Building Energy Engineer Name | Role | Phone | [...] | [place] | | | | [place] | [address] | | | | | [address] | | | | | | [phone] | | | +--------+ + + + [...] | | | | | | [address] [place], [place] | | | | | | [address] | | | | | | | [...] + + + | Date Time | [id number] | | PACEART | | Interrogation | | | | | Session | | | | + + + + + | Implantable Pulse | MDC_IDC_ENUM_MFG_GDT | | PACEART | | Generator | | | | | Box Toe Buffer | | | | + + + + + | Implantable Pulse | 1190 Insignia I Ultra | | PACEART | | Generator Model | | | | + + + + + | Implantable Pulse | [id number] | | PACEART | | Generator Serial | | | | | Number | | | | + + + + + | Type Interrogation | MDC_IDC_ENUM_SESS_TYPE_I | | PACEART | | Session | nClinic | | | + + + + + | Clinic Name | [facility] | | PACEART | + + + + + | Implantable Pulse | MDC_IDC_ENUM_DEV_TYPE_IP | | PACEART | | Generator Type | G | | | + + + + + | Implantable Pulse | [id number] | | PACEART | | Generator Implant | | | | | Date | | | | + + + + + | Implantable Lead | Guidant | | PACEART | | Box Toe Buffer | | | | + + + + + | Implantable Lead | FLEXTEND IS-1 Bi | | PACEART | | Model | Positive Fix RA/RV 59 cm | | | | | 4088 | | | + + + + + | Implantable Lead | [id number] | | PACEART | | Serial Number [...] | PACEART | | Hysterisis Rate | [id number]^MDT PROG MARYLOU | | | | | [...] AME_UnknownComment: | | | | Terminal | 021739^MDT PROG MARYLOU | | | | | REFRACTORYPERIOD | | | | | PREVIOUSEVENTCHAMBER | | | | | RV^MDT - | | | | | VENTRICLE 237444^MDT | | | | | PROG MARYLOU [...] + + | Lead Channel | 640Comment: [id number]^MDT | ohm | PACEART | | Impedance Value | STAT LEADS | | | | | LOWPOWERCHANNEL RV | | | | | IMPEDANCE METHOD^MDT - | | | | | INSTRUMENT_INITIATED | | | | | 8346864^MDT STAT LEADS | | | | | LOWPOWERCHANNEL RV | | | | | IMPEDANCE POLARITY^MDT - | | | | | | | | | | 007166^[facility]_IDC_ENUM_POLA | | | | | RITY_BI^[facility] [id number]^M | | | | | DT STAT LEADS | | | | | LOWPOWERCHANNEL RV | | | | | IMPEDANCES POLE TYPE^MDT | | | | | - ANODE 1640281^MDT | | | | | STAT LEADS | | | | | LOWPOWERCHANNEL RV | | | | | IMPEDANCES POLE | | | | | LOCATION^MDT - | | | | | 592519^[facility]_IDC_ENUM_ELEC | | | | | TRODE_LOCATION_Unknown^M | | | | | DC 1715507^MDT STAT | | | | | LEADS LOWPOWERCHANNEL RV | | | | | IMPEDANCES POLE | | | | | ELECTRODE^MDT - | | | | | 998934^[facility]_IDC_ENUM_ELEC | | | | | TRODE_NAME_Unknown^[facility] | | | | | 4831237^MDT STAT LEADS | | | | | LOWPOWERCHANNEL RV | | | | | IMPEDANCES POLE TYPE^MDT | | | | | - | | | | | CATHODE 9577482^MDT | | | | | STAT LEADS | | | | | LOWPOWERCHANNEL RV | | | | | IMPEDANCES POLE | | | | | LOCATION^MDT - | | | | | 675292^[facility]_ENUM_ELEC | | | | | TRODE_LOCATION_Unknown^M | | | | | DC 3439436^MDT STAT | | | | | LEADS LOWPOWERCHANNEL RV | | | | | IMPEDANCES POLE | | | | | ELECTRODE^MDT - | | | | | 445860^[facility]_ENUM_ELEC | | | | | TRODE_NAME_Unknown^[facility] | | | | | | | | + + + + + | Lead Channel Sensing | 5.9Comment: 1870262^MDT | mV | PACEART | | Intrinsic Amplitude | STAT LEADS | | | | | LOWPOWERCHANNEL RV | | | | | SENSITIVITIES METHOD^MDT | | | | | - | | | | | INSTRUMENT_INITIATED | | | | | 9689545^MDT STAT LEADS | | | | | LOWPOWERCHANNEL RV | | | | | SENSITIVITIES | | | | | POLARITY^MDT - | | | | | 575012^[facility]_IDC_ENUM_POLA | | | | | RITY_Unknown^[facility] 1001 | | | | | 221^MDT STAT LEADS | | | | | LOWPOWERCHANNEL RV | | | | | SENSITIVITIES POLE | | | | | TYPE^MDT - | | | | | CATHODE 2686273^MDT | | | | | STAT LEADS | | | | | LOWPOWERCHANNEL RV | | | | | SENSITIVITIES POLE | | | | | LOCATION^MDT - | | | | | 505629^[facility]_ENUM_ELEC | | | | | TRODE_LOCATION_Unknown^M | | | | | DC 4805903^MDT STAT | | | | | LEADS LOWPOWERCHANNEL RV | | | | | SENSITIVITIES POLE | | | | | ELECTRODE^MDT - | | | | | 523606^[facility]_ENUM_ELEC | | | | | TRODE_NAME_Unknown^MDC | | | | | 3517459^MDT STAT LEADS | | | | | LOWPOWERCHANNEL RV | | | | | SENSITIVITIES POLE | | | | | TYPE^MDT - | | | | | ANODE 1087012^MDT | | | | | STAT LEADS | | | | | LOWPOWERCHANNEL RV | | | | | SENSITIVITIES POLE | | | | | LOCATION^MDT - | | | | | 597229^[facility]_ENUM_ELEC | | | | | TRODE_LOCATION_Unknown^M | | | | | DC 1923500^MDT STAT | | | | | LEADS LOWPOWERCHANNEL RV | | | | | SENSITIVITIES POLE | | | | | ELECTRODE^MDT - | | | | | 520366^[facility]_ENUM_ELEC | | | | | TRODE_NAME_Unknown^[facility] | | | | | | | | + + + + + | Lead Channel Pacing | 1.2 | V | PACEART | | Threshold Amplitude | | | | + + + + + | Lead Channel Pacing | 0.50Comment: [id number]^MDT | ms | PACEART | | Threshold Pulse | STAT LEADS | | | | Width | LOWPOWERCHANNEL RV | | | | | CAPTURES METHOD^MDT - | | | | | INSTRUMENT_INITIATED | | | | | 6857939^MDT STAT LEADS | | | | | LOWPOWERCHANNEL RV | | | | | CAPTURES POLARITY^MDT - | | | | | 775902^[facility]_IDC_ENUM_POLA | | | | | RITY_BI^MDC 6559686^M | | | | | DT STAT LEADS | | | | | LOWPOWERCHANNEL RV | | | | | CAPTURES POLE TYPE^MDT - | | | | | ANODE 1672848^MDT | | | | | STAT LEADS | | | | | LOWPOWERCHANNEL RV | | | | | CAPTURES POLE | | | | | LOCATION^MDT - | | | | | 433717^[facility]_IDC_ENUM_ELEC | | | | | TRODE_LOCATION_Unknown^M | | | | | DC 2159407^MDT STAT | | | | | LEADS LOWPOWERCHANNEL RV | | | | | CAPTURES POLE | | | | | ELECTRODE^MDT - | | | | | 220724^[facility]_IDC_ENUM_ELEC | | | | | TRODE_NAME_Unknown^MDC | | | | | 5013877^MDT STAT LEADS | | | | | LOWPOWERCHANNEL RV | | | | | CAPTURES POLE TYPE^MDT - | | | | | CATHODE 0192796^MDT | | | | | STAT LEADS | | | | | LOWPOWERCHANNEL RV | | | | | CAPTURES POLE | | | | | LOCATION^MDT - | | | | | 762918^[facility]_IDC_ENUM_ELEC | | | | | TRODE_LOCATION_Unknown^M | | | | | DC 2677667^MDT STAT | | | | | LEADS LOWPOWERCHANNEL RV | | | | | CAPTURES POLE | | | | | ELECTRODE^MDT - | | | | | 773732^MDC_IDC_ENUM_ELEC | | | | | TRODE_NAME_Unknown^MDC | [...] + | Marylou Statistic RV | 18Comment: 4112894^MDT | % | PACEART | | Percent Paced | EVALUATION | | | | | DEPENDENCY^MDT - | | | | | NO 8375747^MDT | | | | | EVALUATION RHYTHM^MDT - | | | | | VS 65 BPM 0252519^MDT | | | | | EVALUATION | | | | | MISCELLANEOUSCOMMENT^MDT | | | | | - PACEMAKER | | | | | INTERROGATION REPORT | | | | | Name: Michael Cr | | | | | BanducciPCP: AMEE | | | | | TOWNSLEYDOB: | | | | | 1940MRN: | | | | | [id number] | | | | | cardiology provider: | | | | | Mershed AlsamaraPrimary | | | | | electrophysiology | | | | | provider: NoneMode of | | | | | interrogation: Seen in | | | | | cardiac device clinic | | | | | Device: [employer]away | | | | | Scientific Battery [...] per [place], | | | | | [place].Additional | | | | | comments:None. | [...]
--- OUTSIDE RECORDS SUMMARY | ~2019-01-14 | XMS | Encounter Summary ---
Demographics + + + | Address | [address] | | | [place] [address] | + + + | Home Phone | | + + + | Preferred Language | Unknown | + + + | Marital Status | | + + + | Caodaism Affiliation | Unknown | + + + | Race | Unknown | + + + | Ethnic Group | Unknown | + + + Author + + + | Author | [facility] | + + + | Organization | [facility] | + + + | Address | [...] Providers + +------+ + | Care Contract Engineer Name | Role | Phone | + +------+ + | Kushal Costa MD | PCP | | + +------+ + Encounter Details +--------+---------+ + + + | Date | Type | Department | Care Team | Description | +--------+---------+ + + + | 10/26/ | Office | [facility] | Danny Gandara MD | Bilateral lower | | 2019 | Visit | [facility] [address] | [address] | extremity edema | | | | [address] | [address] [place] | (Primary Dx); CKD | | | | [place] [address] | [address] | (chronic kidney | | | | [phone] | | disease) stage 3, | | | | | | GFR 30-59 ml/min | | | | | | (HCC); Hypokalemia; | | | | | | Electrolyte | | | | | | imbalance risk; | | | | | | Secondary | | | | | | hyperparathyroidism | | | | | | (HCC); Hyperuricemia | +--------+---------+ + + + Social [...] + + + | Blood Pressure | 118/78 | 10/26/2018 10:10 AM PST | + + + + | Pulse | 74 | 10/26/2018 10:10 AM PST | + + + + | Temperature | - | - | + + + + | Respiratory Rate | - | - | + + + + | Oxygen Saturation | 92% | 10/26/2018 10:10 AM PST | + + + + | Inhaled Oxygen | - | - | | Concentration | | | + + + + | Weight | 118.4 kg (261 lb 1.6 | 10/26/2018 10:10 AM PST | | | oz) | | + + + + | Height | 167.6 cm (5' 6") | 10/26/2018 10:10 AM PST | + + + + | Body Mass Index | 42.14 | 10/26/2018 10:10 AM PST | + + + + in this encounter Instructions Patient Instructions - Danny Gandara MD - 10/26/2018 10:00 AM PSTDiscussions/Recommendatio ns: I discussed today with Mr. Joshi [...] kinds of NSAID s for analgesia. Also: His legs are still very edematous; his GFR is worse with the ramped diuresis; his K is l ow. Thus: I kept his Torsemide at 20 mg two times a day. I kept his Metolazone 5 mg daily. I again increased his Potassium chloride to take 2 tablets of the 10 mEq twice a day. I sent him for a repeat BMP in 1 week. He will report back to me his home BP & Weight readings in 1 week. At that time, I will decide whether any change to his vasoactive regimen is warranted. I asked him to elevate his legs for 1 hour once or twice a day. He knows that he still n eeds to be active and ambulatory carefully as possible. He will F/U with the Cardiology team closely. He will continue to F/U with your office regularly. He will have a RFP, Magnesium, CBC before he comes back in 1 month. in this encounter Progress Notes Danny Gandara MD - 10/26/2018 10:00 AM PSTFormatting of this note may be [...] Spinal stenosis at L4-L5 level Volume overload Dear Dr Costa: I saw your patient Mr. Joshi in the office in F/U on an urgent basis today. As you are familiar with his case, I will not state his past history in detail. Briefly, he is a 77 y. o. male patient with past history as delineated above; he is here to F/U on his CKD & its a ssociated complications. He tells me he had CKD since ~2006; his GFR went down: eGFR of 27 on 10/21/17. He was hospitalized in early 09/2018 with [...] intermittence, incomplete emptying or urgency; he has 2-4 times nightly nocturia. No hi story of [...] hist ory, family history and problem list. As in History of Present Illness & [...] tablet Take 1,000 Units by mouth daily. HYDROcodone-acetaminophen (NORCO) 5-325 MG per tablet Take 1 tablet by mouth every 6 (s ix) hours as needed for Pain. metolazone (ZAROXOLYN) 5 MG tablet Take 1 tablet by mouth daily. 90 tablet 3 metoprolol (LOPRESSOR) 50 MG tablet Take 50 mg by mouth 2 (two) times daily. PARoxetine (PAXIL) 20 MG tablet Take 20 mg by mouth every morning. potassium chloride (K-DUR) 10 MEQ tablet Take 2 tablets by mouth 2 (two) times daily wi th meals. 360 tablet 3 pramipexole (MIRAPEX) 0.125 MG tablet Take 0.125 mg by mouth 2 (two) times daily as nee ded. torsemide (DEMADEX) 20 MG tablet Take 1 tablet by mouth 2 (two) times daily. 180 tablet 3 amLODIPine (NORVASC) 5 MG tablet Take 5 mg by mouth daily. losartan (COZAAR) 100 MG tablet Take 100 mg by mouth daily. mometasone (ELOCON) 0.1 % cream Apply topically daily. simvastatin (ZOCOR) 20 MG tablet Take 20 mg by mouth nightly. terazosin (HYTRIN) 1 MG capsule Take 1 capsule by mouth nightly. (Patient not taking: R eported on 09/28/2018) 30 capsule 11 No current facility-administered medications for this visit. Physical Exam: BP 118/78 (BP Location: Left upper arm, Patient Position: Sitting) | Pulse 74 | Ht 1.676 m (5' 6") | Wt 118.4 kg (261 lb 1.6 oz) | SpO2 92% | BMI 42.14 kg/m General appearance: Pleasant, not in acute [...] Warm to touch with 3+ pitting edema bilaterally, with mild dependent edema in the thighs bilaterally.There is no cyanosis. Skin: There are no rashes, petechiae; ecchymosis on arms. Neurological: Awake, alert, and oriented to time, place, and person. Normal gross motor po wer. There is no asterixis. Psychiatric: The patient s behavior is normal. Judgment and thought content are normal. Lab Results Component Value Date BUN 96 (A) 10/23/2018 CREATININE 2.84 (A) 10/23/2018 EGFR 22 (A) 10/23/2018 NA 136 10/23/2018 K 3.2 (A) 10/23/2018 CL 96 10/23/2018 CO2 22 10/23/2018 CA 9.4 10/23/2018 PHOS 4.5 10/23/2018 MG 2.2 09/23/2018 ALB 3.7 10/23/2018 HGB 11.1 (A) 10/23/2018 URICACID 9.0 (A) 10/23/2018 WBC 8.7 10/23/2018 HCT 11.1 (A) 10/23/2018 LABPROT 136.1 10/24/2018 [id number] 41 06/29/2018 Assessment: Mr. Joshi is a 77 y.o. male patient with stage IIIB CKD on a background of longstanding hypertension & chronic heart failure with severe pulmonary hypertension. RENAL FUNCTION: GFR is down now with the ramped up diuresis BLOOD PRESSURE: Reports it controlled at home BLOOD SUGAR: Reports it normal ELECTROLYTES: Mild hypokalemia is back (from loop diuresis) ANEMIA: Very mild VITAMIN D: Deficiency is being treatede PARATHYROID HORMONE: Mildly up URIC ACID: Hyperuricemia is back PROTEINURIA: Very mild URINALYSIS: No UTI or hematuria VOLUME STATUS: Euvolumic. Discussions/Recommendations: I discussed today with Mr. Joshi [...] kinds of NSAID s for analgesia. Also: His legs are still very edematous; his GFR is worse with the ramped diuresis; his K is l ow. Thus: I kept his Torsemide at 20 mg two times a day. I kept his Metolazone 5 mg daily. I again increased his Potassium chloride to take 2 tablets of the 10 mEq twice a day. I sent him for a repeat BMP in 1 week. He will report back to me his home BP & Weight readings in 1 week. At that time, I will decide whether any change to his vasoactive regimen is warranted. I asked him to elevate his legs for 1 hour once or twice a day. He knows that he still n eeds to be active and ambulatory carefully as possible. He will F/U with the Cardiology team closely. He will continue to F/U with your office regularly. He will have a RFP, Magnesium, CBC before he comes back in [address] Costa for the opportunity to see this patient in F/U on an urgent basis tod ay. Please do not hesitate to call me at any time with questions or concerns. Truly yours, MD MADHAVI Hwang in this encounter Plan of Treatment +--------+ [...] | | | | | | [address] [place], [place] | | | | | | [address] | | | | | | | | +--------+ + + + + as of this encounter Visit Diagnoses + + | Diagnosis | + + | Bilateral lower extremity edema - Primary | + + | Edema | + + | CKD (chronic kidney disease) stage 3, GFR 30-59 ml/min (HCC) | + + | Chronic kidney disease, Stage III (moderate) | + + | Hypokalemia | + + | Hypopotassemia | + + | Electrolyte imbalance risk | + + | Other specified conditions influencing health status | + + | Secondary hyperparathyroidism (HCC) | + + | Secondary hyperparathyroidism (of renal origin) | + + | Hyperuricemia | + + | Other abnormal blood chemistry | + +
--- OUTSIDE RECORDS SUMMARY | ~2019-01-14 | XMS | Encounter Summary ---
Demographics + + + | Address | [address] | | | [place] [address] | + + + | Home Phone | | + + + | Preferred Language | Unknown | + + + | Marital Status | | + + + | Uatsdin Affiliation | Unknown | + + + | Race | Unknown | + + + | Ethnic Group | Unknown | + + + Author + + + | Author | [facility] [employer] | + + + | Organization | [facility] [employer] | + + + | Address | Unknown | + + + | Phone | Unavailable | + + + Support + + +---------+ + | Name | Relationship | Address | Phone | + + +---------+ + | Allegar Joshi | ECON | Unknown | | + + +---------+ + | Carol Garcia | ECON | Unknown | | + + +---------+ + Care Team Providers + +------+ + | Care Inspector Aligning Name | Role | Phone | + +------+ + | Kushal Costa MD | PCP | | + +------+ + Encounter Details +--------+---------+ + + + | Date | Type | Department | Care Team | Description | +--------+---------+ + + + | 11/23/ | Office | [facility] | Danny Gandara MD | Bilateral lower | | 2019 | Visit | [facility] [address] | [address] | extremity edema | | | | [address] | [address] [place] | (Primary Dx); CKD | | | | [place] [address] | [address] | (chronic kidney | | | | [phone] | | disease) stage 3, | | | | | | GFR 30-59 ml/min | | | | | | (HCC); Essential | | | | | | hypertension, | | | | | | benign; Secondary | | | | | | hyperparathyroidism | | | | | | (HCC); Electrolyte | | | | | | imbalance risk | +--------+---------+ + + + Social History [...] + | Blood Pressure | 118/78 | 11/23/2018 10:07 AM PST | + + + + | Pulse | 76 | 11/23/2018 10:07 AM PST | + + + + | Temperature | - | - | + + + + | Respiratory Rate | - | - | + + + + | Oxygen Saturation | 95% | 11/23/2018 10:07 AM PST | + + + + | Inhaled Oxygen | - | - | | Concentration | | | + + + + | Weight | 122.5 kg (270 lb) | 11/23/2018 10:07 AM PST | + + + + | Height | 172.7 cm (5' 8") | 11/23/2018 10:07 AM PST | + + + + | Body Mass Index | 41.05 | 11/23/2018 10:07 AM PST | + + + + in this encounter Instructions Patient Instructions - Danny Gandara MD - 11/23/2018 10:00 AM PSTDiscussions/Recommendatio ns: I discussed today [...] his K is l ow. Thus: I increased his Torsemide to 40 mg two times a day. I increased his Metolazone to 10 mg daily. I again increased his Potassium chloride to take 4 tablets of the 10 mEq twice a day (th at is a total of 8 tablets of that 10-mEq pill per day; that is a total of 80 mEq per day). I sent him for a repeat BMP in 1 week. He will report back to me his home BP & Weight readings in 1 week then every week. At th at time, I will decide whether any change [...] CBC before he comes back in 1 month.in this encounter Progress Notes Danny Gandara MD - 11/23/2018 10:00 AM PSTFormatting of this note may [...] in the office on an urgent basis today. As you are avi r with his case, I will not state his past history in detail. Briefly, he is a 78 y.o. male patient with past history as delineated above; he is here to F/U on his CKD & its associat ed complications. He tells me he had CKD since ~2006; his GFR went down: eGFR of 27 on . He was hospitalized in early 09/2018 with [...] tablets by mouth daily. 60 tablet 11 amLODIPine (NORVASC) 5 MG tablet Take 5 mg by mouth daily. ascorbic acid (VITAMIN C) 500 MG tablet [...] mg by mouth 2 (two) times daily. mometasone (ELOCON) 0.1 % cream Apply topically daily. PARoxetine (PAXIL) 20 MG tablet Take 20 mg by mouth every morning. potassium chloride (K-DUR) 10 MEQ tablet Take 2 tablets by mouth 2 (two) times daily wi th meals. 360 tablet 3 pramipexole (MIRAPEX) 0.125 MG tablet Take 0.125 mg by mouth 2 (two) times daily as nee ded. simvastatin (ZOCOR) 20 MG tablet Take 20 mg by mouth nightly. torsemide (DEMADEX) 20 MG tablet Take 1 tablet by mouth 2 (two) times daily. 180 tablet 3 losartan (COZAAR) 100 MG tablet Take 100 mg by mouth daily. terazosin (HYTRIN) 1 MG capsule Take 1 capsule by mouth nightly. (Patient not taking: R eported on 09/28/2018) 30 capsule 11 No current facility-administered medications for this visit. Physical Exam: BP 118/78 (BP Location: Left upper arm, Patient Position: Sitting) | Pulse 76 | Ht 1.727 m (5' 8") | Wt 122.5 kg (270 lb) | SpO2 95% | BMI 41.05 kg/m General appearance: Pleasant, not in acute [...] normal. Lab Results Component Value Date BUN 47 (A) 11/20/2018 CREATININE 1.67 (A) 11/20/2018 EGFR 40 (A) 11/20/2018 NA 139 11/20/2018 K 4.4 11/20/2018 CL 104 11/20/2018 CO2 23 11/20/2018 CA 9.0 11/20/2018 PHOS 3.4 11/20/2018 MG 1.9 11/20/2018 ALB 3.7 11/20/2018 HGB 10.9 (A) 11/20/2018 URICACID 9.0 (A) 10/23/2018 WBC 6.5 11/20/2018 HCT 33.0 (A) 11/20/2018 LABPROT 286.2 (A) 11/20/2018 [id number] 41 06/29/2018 Assessment: Mr. Joshi is a [...] URINALYSIS: No UTI or hematuria VOLUME STATUS: Euvolumic PERIPHERAL EDEMA: Still severe [...] his K is l ow. Thus: I increased his Torsemide to 40 mg two times a day. I increased his Metolazone to 10 mg daily. I again increased his Potassium chloride to take 4 tablets of the 10 mEq twice a day (th at is a total of 8 tablets of that 10-mEq pill per day; that is a total of 80 mEq per day). I sent him for a repeat BMP in 1 week. He will report back to me his home BP & Weight readings in 1 week then every week. At th at time, I will decide whether any change [...] | | | | | | [address] [place], [place] | | | | | | [address] [...] Essential hypertension, benign | + + | Secondary hyperparathyroidism (HCC) | + + | Secondary hyperparathyroidism (of renal origin) | + + | Electrolyte imbalance risk | + + | Other specified conditions influencing health status | + +
--- OUTSIDE RECORDS SUMMARY | ~2019-01-14 | XMS | Clinical Summary ---
Demographics + + + | Address | [address] | | | [place] [address] | + + + | Home Phone | | + + + | Preferred Language | Unknown | + + + | Marital Status | | + + + | Denominational Affiliation | [phone] | + + + | Race | Unknown | + + + | Ethnic Group | Unknown | + + + Author + + + | Author | [facility] | | | and [place] | + + + | Organization | [facility] | | | and [...] Providers + +------+ + | Care Financial Administrative Assistant Name | Role | Phone | [...] +--------+ +---------+ | MEDICARE | MEDICA | [id number] | Medica | [phone] | | | RE | | [...] | Self [birth year] Home: | [address] [place] [address] | | | al/Fam | | [phone] | [phone] | [place] | | | lissy | | | [phone] | [address] | + +--------+ +--------+ + +
--- OUTSIDE RECORDS SUMMARY | ~2019-01-14 | XMS | Encounter Summary ---
Demographics + + + | Address | [address] | | | [place] [address] | + + + | Home Phone | | + + + | Preferred Language | Unknown | + + + | Marital Status | | + + + | Buddhist Affiliation | Unknown | + + + | Race | Unknown | + + + | Ethnic Group | Unknown | + + + Author + + + | Author | [facility] | + + + | Organization | [facility] | + + + | Address | [...] Team Providers + +------+ + | Care Funeral Home Makeup Artist Name | Role | Phone | + +------+ + | Kushal Costa MD | PCP | | + +------+ + Reason for Visit +--------+ + | Reason | Comments | +--------+ + | Other | lab | +--------+ + Encounter Details +--------+ + + + + | Date | Type | Department | Care Team | Description | +--------+ + + + + | 10/23/ | Documentati | [facility] | Tobias, | Other (lab) | | 2019 | on Only | [place] [address] | [address] | | | | | [address] | | | | | | [place] [address] | | | | | | [phone] | | | +--------+ + + + [...] | | | | | | [address] [place], [place] | | | | | | [address] | | | | | | | [...] + + + in this encounter Results Uric acid (10/23/2018 9:05 AM) + +---------+ [...]
--- OUTSIDE RECORDS SUMMARY | ~2019-01-14 | XMS | Encounter Summary ---
Demographics + + + | Address | [address] | | | [place] [address] | + + + | Home Phone | | + + + | Preferred Language | Unknown | + + + | Marital Status | | + + + | Sikhism Affiliation | Unknown | + + + | Race | Unknown | + + + | Ethnic Group | Unknown | + + + Author + + + | Author | [facility] | + + + | Organization | [facility] | + + + | Address | [...] Team Providers + +------+ + | Care Rf Microwave Engineer Name | Role | Phone | [...] | | | | | [place] [address] | | | | | | [phone] | | | +--------+ + + + [...] | | | | | | [address] [place], [place] | | | | | | [address] | | | | | | | [...]
--- OUTSIDE RECORDS SUMMARY | ~2019-01-14 | XMS | Encounter Summary ---
Demographics + + + | Address | [address] | | | [place] [address] | + + + | Home Phone [...] + + | Author | [facility] | + + + | Organization | [facility] | + + + | Address [...] Providers + +------+ + | Care Manager Specialty Name | Role | Phone | + +------+ + | Kushal Costa MD | PCP | | + +------+ + Reason for Visit + + + | Reason | Comments | + + + | Labs Only | | + + + Encounter Details +--------+ + + + + | Date | Type | Department | Care Team | Description | +--------+ + + + + | 02/04/ | Documentati | [facility] | Jatinder, | Labs Only | | 2019 | on Only | [address] | [address] | | | | | [address] | | | | | | [place] [address] | | | | | | [phone] | | | +--------+ + + + [...] | | | | | | [address] [place], [place] | | | | | | [address] | | | | | | | [...] in this encounter Results Renal function panel (11/20/2018 1:10 PM) + + + + + | Component | Value | Ref Range | Performed At | + + + + + | GLUCOSE | 94 | 70 - 100 mg/dL | | + + + + + | BUN | 47 (A) | 6 - 23 mg/dL | | + + + + + | CREATININE | 1.67 (A) | 0.70 - 1.18 mg/dL | | + + + + + | PHOSPHORUS | 3.4 | 2.5 - 5.0 mg/dL | | + + + + + | Albumin | 3.7 | 3.5 - 5.0 | | + + + + + | SODIUM | 139 | 132 - 143 mmol/L | | + + + + + | POTASSIUM | 4.4 | 3.6 - 5.1 mmol/L | | + + + + + | CHLORIDE | 104 | 95 - 112 mmol/L | | + + + + + | CO2 | 23 | 19 - 31 mmol/L | | + + + + + | ANION GAP AGAP | 16.4 | 7 - 21 mmol/L | | + + + + + | GFR MDRD Non Af Amer | | | | + + + + + | Phosphorus,Inorganic | | | | + + + + + | BUN/CREAT | 28.1 | 6.0 - 28.6 | | + + + + + | CALCIUM | 9.0 | 8.5 - 10.3 mg/dL | | + + + + + | EGFR | 40 (A) | 60 - 140 mg/dL | | + + + + + + + | Specimen | + + | Blood | + + Magnesium (11/20/2018 1:10 PM) + +-------+ + + | Component | Value | Ref Range | Performed At | + +-------+ + + | MAGNESIUM | 1.9 | 1.7 - 2.5 mg/dL | | + +-------+ + + + + | Specimen | + + | Blood | + + CBC w/manual diff (11/20/2018 [...] + PTH intact no calcium (11/20/2018 1:10 PM) + + + + + | Component | Value | Ref Range | Performed At | + + + + + | PTH INTACT NO | 129.5 (A) | 15 - 65 pg/mL | | | CALCIUM | | | | + + + + + + + | Specimen | + + | Blood | + + Protein / creatinine ratio, urine (11/20/2018 1:10 PM) + + + + [...] | | Unspecified Source | + + in this encounter Visit Diagnoses Not on filein this encounter"
--- OUTSIDE RECORDS SUMMARY | ~2019-01-14 | XMS | Encounter Summary ---
Demographics + + + | Address | [address] | | | [place] [address] | + + + | Home Phone | | + + + | Preferred Language | Unknown | + + + | Marital Status | | + + + | Christian Affiliation | Unknown | + + + | Race | Unknown | + + + | Ethnic Group | Unknown | + + + Author + + + | Author | [facility] | + + + | Organization | [facility] | + + + | Address [...] Team Providers + +------+ + | Care Grain Shoveler Name | Role | Phone | + [...] | | | | | [place] [address] | | | | | | [phone] | | | +--------+ + + + [...] [place] | | | | | | [address] | | | | | | | [...] kidney disease) stage 3, GFR 30-59 ml/min ([facility]) - Primary | + + | Chronic kidney disease, Stage III (moderate) | + + | Electrolyte imbalance risk | + + | Other specified conditions influencing health status | + + | Essential hypertension, benign | + +"
--- OUTSIDE RECORDS SUMMARY | ~2019-01-14 | XMS | Encounter Summary ---
Demographics + + + | Address | [address] | | | [place] [address] | + + + | Home Phone | | + + + | Preferred Language | Unknown | + + + | Marital Status | | + + + | Jainism Affiliation | Unknown | + + + | Race | Unknown | + + + | Ethnic Group | Unknown | + + + Author + + + | Author | [facility] | + + + | Organization | [facility] [employer] [facility] | + + + | Address | [...] Providers + +------+ + | Care Production Engineer Track Name | Role | Phone | [...] | | 2019 | on Only | [address] | [address] | | | | | [address] | | | | | | [place] [address] | | | | | | [phone] | | | +--------+ + + + [...] | | | | | | [address] [place], [place] | | | | | | [address] | | | | | | | [...] + + + + + | Specific [place], UA | 1.015 | 1.005 - 1.030 [...]
--- OUTSIDE RECORDS SUMMARY | ~2019-01-14 | XMS | Encounter Summary ---
Demographics + + + | Address | [address] | | | [place] [address] | + + + | Home Phone | | + + + | Preferred Language | Unknown | + + + | Marital Status | | + + + | Judaism Affiliation | Unknown | + + + | Race | Unknown | + + + | Ethnic Group | Unknown | + + + Author + + + | Author | [facility] | + + + | Organization | [facility] | + + + | Address | [...] Team Providers + +------+ + | Care Property Claims Adjuster Name | Role | Phone [...] [place] | | | | | | [address] | | | | | | [phone] | | | +--------+ + + + [...] [place] | | | | | | [address] | | | | | | | | +--------+ + + + + as of this encounter Visit Diagnoses Not on filein this encounter"
--- OUTSIDE RECORDS SUMMARY | ~2019-01-14 | XMS | Encounter Summary ---
Demographics + + + | Address | [address] | | | [place] [address] | + + + | Home Phone | | + + + | Preferred Language | Unknown | + + + | Marital Status | | + + + | Synagogue Affiliation | Unknown | + + + | Race | Unknown | + + + | Ethnic Group | Unknown | + + + Author + + + | Author | [facility] | + + + | Organization | [facility] | + + + | Address | [...] Team Providers + +------+ + | Care Vehicle And Equipment Cleaner Name | Role | Phone | [...] + | 11/10/ | Documentati | [facility] | | Pacemaker Check | | 2019 | on Only | Cardiology [place] | | (in-office) | | | | [address] [facility] [address] | | | | | | [address] | | | | | | [place] [address] | | | | | | [phone] | | | +--------+ + + + [...] of this encounter Progress Notes Marcus Cook, LEONEL - 11/10/2018 11:45 AM PSTFormatting of this note may be different from catalina frias. PACEMAKER INTERROGATION REPORT Name: Michael Joshi PCP: AMEE COSTA : 1940 Primary cardiology provider: [facility] Primary electrophysiology provider: None Mode of interrogation: Seen in cardiac device clinic Device: [employer] Battery Longevity: <1/2 years. RV Pacin% Pacemaker [...] EGM printed. Testing performed by: Ronnie Perdue [employer] this encounter Plan of Treatment +--------+ + [...] | | | | | | [address] [place], [place] | | | | | | [id number] | | | | | | | | +--------+ + + + + as of this encounter Visit Diagnoses + + | Diagnosis | + + | Chronic atrial fibrillation (HCC) - Primary | + + | Atrial fibrillation | + + | Cardiac pacemaker in situ | + +"
--- OUTSIDE RECORDS SUMMARY | ~2019-01-14 | XMS | Encounter Summary ---
Demographics + + + | Address | [address] | | | [place] [address] | + + + | Home Phone [...] + | Author | [facility] | + + + | Organization | [facility] [employer] | + + + | Address | [...] Team Providers + +------+ + | Care Inventory Representative Name | Role | Phone | + +------+ + | Kushal Costa MD | PCP | | + +------+ + Encounter Details +--------+ + + + + | Date | Type | Department | Care Team | Description | +--------+ + + + + | 12/26/ | Hospital | [facility] PH[facility] | See, Medical | Chest pain, | | 2018 | Encounter | [facility] | Record [address] | unspecified type | | | | RADIOLOGY [address] | [address] [place] [address], | | | | [address] | [place] [address] | | | | | [place] [address] | [phone] | | | | | [phone] | | | +--------+ + + + [...] | | | | | | [address] [place], [place] | | | | | | [address] | | | | | | | [...] | + + + + + | [facility] | [address] | [place] [address] | | + + + + + in this encounter Visit Diagnoses + + | Diagnosis | + + | Chest pain, unspecified type | + +"
--- OUTSIDE RECORDS SUMMARY | ~2019-01-14 | XMS | Encounter Summary ---
Demographics + + + | Address | [address] | | | [place] [address] | + + + | Home Phone | | + + + | Preferred Language | Unknown | + + + | Marital Status | | + + + | Anabaptism Affiliation | Unknown | + + + | Race | Unknown | + + + | Ethnic Group | Unknown | + + + Author + + + | Author | [facility] | + + + | Organization | [facility] | + + + | Address | [...] Team Providers + +------+ + | Care Gas Regulator Repairer Name | Role | Phone | + +------+ + | uKshal Costa MD | PCP | | + [...] | | | | | [place] [address] | | | | | | [phone] | | | +--------+ + + + [...] [place] | | | | | | [address] | | | | | | | | +--------+ + + + + as of this encounter Visit Diagnoses Not on filein this encounter"
--- OUTSIDE RECORDS SUMMARY | ~2019-01-14 | XMS | Encounter Summary ---
Demographics + + + | Address | [address] | | | [place] [address] | + + + | Home Phone [...] Author | [email or web address] | + + + | Organization | [email or web address] | + + + | Address | [...] Team Providers + +------+ + | Care Enroute Controller Name | Role | Phone | + [...] ml/min | | | | [place] [address] | | ([facility]); Hypokalemia; | | | | [phone] | | Bilateral lower | | | [...] | | | | | ([facility]) | +--------+ + + + + [...] | | | | | [address] [place], [place] | | | | | | [address] | | | | | | | [...] | + + + + + | [facility] | [address] [facility] [address] | [place] [address] | [phone] | | LABORATORY | Blvd. | | [...] + + + | [facility] | [address] | [place] [address] | [phone] | | LABORATORY | Blvd. | | [...] + + + + | [facility] | [address] | [place] [address] | [phone] | | LABORATORY | Blvd. | | [...]
--- OUTSIDE RECORDS SUMMARY | ~2019-01-14 | XMS | Clinical Summary ---
Demographics + + + | Address | [address] | | | [place] [address] | + + + | Home Phone | | + + + | Preferred Language | Unknown | + + + | Marital Status | Single | + + + | Episcopalian Affiliation [...] Team Providers + +------+ + | Care Ore Smelter Name | Role | Phone | + +------+ + PP | Unavailable | + +------+ + Source Comments [facility] is fully live on both [facility] and [facility] InPatient.[facility] Allergies Not on File Current Medications Not [...]
--- OUTSIDE RECORDS SUMMARY | ~2019-01-14 | XMS | Encounter Summary ---
Demographics + + + | Address | [address] | | | [place] [address] | + + + | Home Phone | | + + + | Preferred Language | Unknown | + + + | Marital Status | | + + + | Jew Affiliation | Unknown | + + + | Race | Unknown | + + + | Ethnic Group | Unknown | + + + Author + + + | Author | [facility] | + + + | Organization | [facility] | + + + | Address | [...] Team Providers + +------+ + | Care Fluid Designer Name | Role | Phone | [...] | | | | | [place] [address] | | | | | | [phone] | | | +--------+ + + + [...] | | | | | | [address] [place] | | | | | | [address] | | | | | | | | +--------+ + + + + as of this encounter Visit Diagnoses Not on filein this encounter"
--- OUTSIDE RECORDS SUMMARY | ~2019-01-14 | XMS | Encounter Summary ---
Demographics + + + | Address | [address] | | | [place] [address] | + + + | Home Phone | | + + + | Preferred Language | Unknown | + + + | Marital Status | | + + + | Amish Affiliation | Unknown | + + + | Race | Unknown | + + + | Ethnic Group | Unknown | + + + Author + + + | Author | [facility] | + + + | Organization | [facility] [employer] | + + + | Address [...] Team Providers + +------+ + | Care Roofing Superintendent Name | Role | Phone | + [...] | | [address] | [address] [place] | (Primary Dx); CKD | | | | [place] [address] | [address] | (chronic kidney | | | | [phone] | | disease) stage 3, | | [...] HCT 11.1 (A) 10/23/2018 LABPROT 136.1 10/24/2018 [id number] 06/29/2018 Assessment: Mr. Joshi is a [...] | | | | | | [address] [place], [place] | | | | | | [address] | | | | | | | [...]
--- OUTSIDE RECORDS SUMMARY | ~2019-01-14 | XMS | Encounter Summary ---
Demographics + + + | Address | [address] | | | [place] [address] | + + + | Home Phone [...] | Author | [facility] | + + + | Organization | [facility] | + + + | Address | [...] Team Providers + +------+ + | Care Bingo Cashier Name | Role | Phone | + +------+ + | Kushal Costa MD | PCP | | + +------+ + Encounter Details +--------+ + + + + | Date | Type | Department | Care Team | Description | +--------+ + + + + | 12/26/ | Hospital | [facility] | See, Medical | Chest pain, | | 2018 | Encounter | [facility] | Record [address] | unspecified type | | | | RADIOLOGY [address] | [address] [place] [address], | | | | | [address] | [place] [address] | | | | | [place] [address] | [phone] | | | | | [phone] | | | +--------+ + + + [...] | | | | | | [address] [place], [place] | | | | | | [address] | | | | | | | [...] | + + + + + | [facility] | [address] | [place] [address] | | + + + + + in this encounter Visit Diagnoses + + | Diagnosis | + + | Chest pain, unspecified type | + +"
--- OUTSIDE RECORDS SUMMARY | ~2019-01-14 | XMS | Encounter Summary ---
Demographics + + + | Address | [address] | | | [place] [address] | + + + | Home Phone | | + + + | Preferred Language | Unknown | + + + | Marital Status | | + + + | Mu-Ism Affiliation | Unknown | + + + | Race | Unknown | + + + | Ethnic Group | Unknown | + + + Author + + + | Author | [facility] | + + + | Organization | [facility] | + + + | Address | [...] Providers + +------+ + | Care Program Director/Music Director Name | Role | Phone | [...] | | | | | [place] [address] | | | | | | [phone] | | | +--------+ + + + [...] | | | | | | [address] [place], [place] | | | | | | [address] | | | | | | | [...]
--- OUTSIDE RECORDS SUMMARY | ~2019-01-14 | XMS | Encounter Summary ---
Demographics + + + | Address | [address] | | | [place] [address] | + + + | Home Phone | | + + + | Preferred Language | Unknown | + + + | Marital Status | | + + + | Mu-Ism Affiliation | Unknown | + + + | Race | Unknown | + + + | Ethnic Group | Unknown | + + + Author + + + | Author | [facility] | + + + | Organization | [facility] | + + + | Address | [...] Team Providers + +------+ + | Care Bank Consultant Name | Role | Phone | [...] | | [address] | [address] [place] | (Primary Dx); CKD | | | | [place] [address] | [address] | (chronic kidney | | | | [phone] | | disease) stage 3, | | [...] 33.0 (A) 11/20/2018 LABPROT 286.2 (A) 11/20/2018 [id number] 06/29/2018 Assessment: Mr. Joshi is a [...] | | | | | | [address] [place], [place] | | | | | | [...]
[~2019-01-14 17:06] MED LIST changes: +ZOCOR80 MG PO
--- OUTSIDE RECORDS SUMMARY | 2019-01-14 17:10 | XMS ---
PreManage Notification: FROYLAN GARCIA Security Lead Scientist Events No recent Security Events currently on file CRITERIA MET - [facility] - Has Care Guidelines - [facility] - 2 Visits in 30 Days CARE PROVIDERS AMEE URRUTIA [facility] 09/16/2018-Current PHONE: Unknown AMEE URRUTIA Primary Care Current PHONE: Unknown Adolph Veras MD Primary Care Current PHONE: [phone] ormacie Case or Supervisor Accounting Clerks Current PHONE: Unknown Jadon has no Care Guidelines for this patient. Care History Medical/Surgical 10/07/2018 [facility] - PATIENT IS CURRENTLY RECEIVING HOME HEALTH SERVICES THRU [facility]. PLEASE CONTACT [facility] AT [phone] WHEN PATIENT IS SEEN IN THE ED. 09/16/2018 [facility] - Patient is currently established with [facility]. If patient is seen in the ED during business hours. Please contact CHWs at [facility]. Care Recommendation: This patient has had 5 [...] providing care. E.D. VISIT COUNT (12 MO[address] 4 [facility]. TOTAL 4 NOTE: Visits indicate total known visits. ED/UCC VISIT TRACKING (12 MO.) 01/14/2019 17:07 [facility] [place] TYPE: Emergency COMPLAINT: - RECTAL BLEEDING 12/26/2018 18:44 [facility] [place] TYPE: Emergency COMPLAINT: - VOMITTITNG DIAGNOSES: - Other specified abnormal findings of blood chemistry - Other residential (current) drug therapy - Allergy status to other drugs, medicaments and biological substances status - Heart failure, unspecified - Presence of cardiac pacemaker - FPC (current) use of aspirin - Unspecified atrial fibrillation - Weakness 12/08/2018 10:38 [facility] [place] TYPE: Emergency COMPLAINT: - R LEG PAIN,NON INJURY DIAGNOSES: - Heart failure, unspecified - Other terminal clerk (current) drug therapy - Localized edema - Unspecified atrial fibrillation - Cellulitis of right lower limb - oil heaterman (current) use of aspirin - Unspecified open wound, right lower leg, initial encounter - Allergy status to other drugs, medicaments and biological substances status 09/16/2018 12:32 [facility] [place] TYPE: Emergency COMPLAINT: - SWELLING IN LEGS/NON INJURY INPATIENT VISIT TRACKING (12 MO.) 12/27/2018 01:07 [facility]: [facility] DIAGNOSES: - Dyspnea - Elevated troponin - Fluid overload, unspecified 09/16/2018 12:33 [facility] [place] TYPE: Medical Surgical COMPLAINT: - LYMPHEDEMA DIAGNOSES: - Chronic kidney disease, unspecified - Other terminal clerk (current) drug therapy - Acute kidney failure, [...] (nonthermal), right lower leg, initial encounter - FPC (current) use of aspirin - Presence of cardiac pacemaker 05/12/2018 08:18 [facility] [place] TYPE: Cardiovacular Care Unit DIAGNOSES: - Paroxysmal atrial fibrillation [id number]
[2019-01-14] MEDS ORDERED: ANUSOL-HC25 MG PR (21:26)
== END 2019-01-14 21:47 | disposition home or self-care (01) ==
LOC: ED 17:06
DX: K64.4 Residual hemorrhoidal skin tags (principal); K64.8 Other hemorrhoids; I50.9 Heart failure, unspecified; I48.91 Unspecified atrial fibrillation; Z95.0 Presence of cardiac pacemaker; Z88.8 Allergy status to other drugs, medicaments and biological substances; Z79.82 Long term (current) use of aspirin
CPT/HCPCS: 80053; 85025; 85610; 85730; 99283

== ENCOUNTER 2019-03-17 18:30 | Observation (INO) | payer MEDICARE ==
[~2019-03-17] VITALS: Ht 167.6 cm; Wt 117.0 kg
--- OUTSIDE RECORDS SUMMARY | ~2019-03-17 | XMS | Encounter Summary ---
Demographics + + + | Address | [address] | | | [place] [address] | + + + | Home Phone | | + + + | Preferred Language | Unknown | + + + | Marital Status | | + + + | Buddhist Affiliation | Unknown | + + + | Race | Unknown | + + + | Ethnic Group | Unknown | + + + Author + + + | Author | [facility] | + + + | Organization | [facility] | + + + | Address | [...] Team Providers + +------+ + | Care Diagrammer Name | Role | Phone | + +------+ + | Kushal Costa MD | PCP | | + +------+ + Reason for Visit + + + | Reason | Comments | + + + | Labs Only | 01/28/19 | + + + Encounter Details +--------+ + + + + | Date | Type | Department | Care Team | Description | +--------+ + + + + | 01/29/ | Documentati | [facility] | Jatin[place] | Denzel Only (01/28/19) | | 2019 | on Only | [place] [address] | [address] | | | | | [address] | | | | | | [place] [address] | | | | | | [phone] | | | +--------+ + + + [...] +---------+ + | No | | | A few times per year | + + +---------+ + + + + | Sex Assigned at | Date Recorded | | | | + + + | Not on file | | + + + as of this encounter Plan of Treatment +--------+ + + + + | Date | Type | Specialty | Care Team | Description | +--------+ + + + + | 03/31/ | Initial | Cardiology | Willie Ortiz | | | 2019 | consult | | MD [address] | | | | | | [address] | | | | | | [place] [address] | | | | | | [phone] | | | | | | | | +--------+ + + + + | 03/31/ | Documentati | Cardiology | | | | 2019 | on Only | | | | +--------+ + + + + | 04/19/ | Office | Nephrology | Danny Gandara MD | | | 2018 | Visit | | [address] | | | | | | [address] [place] | | | | | | [address] | | | | | | | | +--------+ + + + + | 09/08/ | Office | Cardiology | Sparkle Brady, | | | 2018 | Visit | | [address] | | | | | | [address], | | | | | | [place] [address] | | | | | | [phone] | | | | | | | | +--------+ + + + + as of this encounter Procedures + +--------+ + + + | Procedure Name | Priori | Date/Time | Associated Diagnosis | Comments | | | ty | | | | + +--------+ + + + | CBC W/AUTO DIFF | Routin | 01/28/2019 | | Results for this | | (REFLEX TO MANUAL) | e | 12:00 AM | | procedure are in the | | | | PDT | | results section. | + +--------+ + + + | COMPREHENSIVE | Routin | 01/28/2019 | | Results for this | | METABOLIC PANEL | e | 12:00 AM | | procedure are in the | | | | PDT | | results section. | + +--------+ + + + in this encounter Results CBC W/Auto Diff (Reflex to Manual) (01/28/2019) + + + + + | Component | Value | Ref Range | Performed At | + + + + + | WBC | 9.1 | 4.5 - 11.0 10^3/mL | | + + + + + | RBC | 3.74 (A) | 7.3 - 5.7 10^6/ L | | + + + + + | HGB | 11.3 (A) | 13.5 - 18.0 g/dL | | + + + + + | HCT | 34.2 (A) | 41 - 50 % | | + + + + + | MCV | 91.5 | 81 - 99 fL | | + + + + + | MCH | 30 | 27 - 33 pg | | + + + + + | MCHC | 33 | 30 - 36 g/dL | | + + + + + | PLT | 218 | 140 - 440 K/ L | | + + + + + | RDW SD | 17.9 (A) | 10.5 - 15.0 % | | + + + + + | MPV | | fL | | + + + + + | DIFF TYPE | | | | + + + + + | NEUTROPHILS | 92.0 (A) | 39 - 80 % | | + + + + + | LYMPHOCYTES | 3.3 (A) | 24 - 44 % | | + + + + + | MONOCYTES | 4.4 | 0 - 12 % | | + + + + + | EOSINOPHILS | 0.1 | 0 - 6 % | | + + + + + | BASOPHILS | 0.2 | 0 - 2 % | | + + + + + | NEUTROPHILS ABS | | / L | | + + + + + | LYMPHOCYTES ABS | | / L | | + + + + + | MONOCYTES ABS | | / L | | + + + + + | EOSINOPHILS ABS | | / L | | + + + + + | BASOPHILS ABS | | / L | | + + + + + + + | Specimen | + + | Blood | + + Comprehensive metabolic panel (01/28/2019) + + + + + | Component | Value | Ref Range | Performed At | + + + + + | GLUCOSE | 90 | 70 - 100 mg/dL | | + + + + + | BUN | 50 (A) | 6 - 23 mg/dL | | + + + + + | CREATININE | 1.84 (A) | 0.70 - 1.18 mg/dL | | + + + + + | BUN/CREAT | 27.2 | 6.0 - 28.6 | | + + + + + | CALCIUM | 9.3 | 8.5 - 10.3 mg/dL | | + + + + + | TOTAL PROTEIN | 6.6 | 6.0 - 8.3 g/dL | | + + + + + | Albumin | 3.7 | 3.5 - 5.0 | | + + + + + | GLOBULIN | 2.9 | 1.8 - 3.5 | | + + + + + | A/G | 1.3 | 1.1 - 2.4 | | + + + + + | TBIL | 0.5 | 0.0 - 1.2 mg/dL | | + + + + + | ALK PHOS | 59 | 31 - 120 | | + + + + + | ALT | 9 | 7 - 52 U/L | | + + + + + | AST | 10 (A) | 13 - 39 U/L | | + + + + + | SODIUM | 137 | 132 - 143 mmol/L | | + + + + + | POTASSIUM | 3.6 | 3.6 - 5.1 mmol/L | | + + + + + | CHLORIDE | 103 | 95 - 112 mmol/L | | + + + + + | CO2 | 21 | 19 - 31 mmol/L | | + + + + + | ANION GAP AGAP | 16.6 | 7 - 21 mmol/L | | + + + + + | EGFR | 36 (A) | 60 - 140 mg/dL | | + + + + + + + | Specimen | + + | Blood | + + in this encounter Visit Diagnoses Not on filein this encounter"
--- OUTSIDE RECORDS SUMMARY | ~2019-03-17 | XMS | Clinical Summary ---
Demographics + + + | Address | [address] | | | [place] [address] | + + + | Home Phone | | + + + | Preferred Language | Unknown | + + + | Marital Status | Single | + + + | Judaism Affiliation | Unknown | + + + [...] Team Providers + +------+ + | Care Chemistry Technical Officer Name | Role | Phone | + +------+ + PP | Unavailable | + +------+ + Source Comments P[facility] is fully live on both [facility] Ambulatory and [facility] InPatient.[facility] Allergies Not on File Medications Not [...] recent travel history available. | + + Plan of Treatment + + + + + | Health Maintenance | Due Date | Last Done | Comments | + + + + + | Pneumococcal (Adult) | | | | | (1 of 2 - PCV13) | 5 | | | + + + + + | Influenza (Flu) | | | | | vaccination (Season | 9 | | | | Ended) | | | | + + + + + Results Not on filefrom Last 3 Months"
--- OUTSIDE RECORDS SUMMARY | ~2019-03-17 | XMS | Encounter Summary ---
Demographics + + + | Address | [address] | | | [place] [address] | + + + | Home Phone | | + + + | Preferred Language | Unknown | + + + | Marital Status | Single | + + + | Taoist Affiliation | Unknown | + + + | Race | Unknown | + + + | Ethnic Group | Other Race | + + + Author + + + | Author | [facility] | + + + | Organization | [facility] | + + + | Address | Unknown | + + + | Phone | Unavailable | + + + Support + + +---------+ + | Name | Relationship | Address | Phone | + + +---------+ + | None None | ECON | Unknown | Unavailable | + + +---------+ + Care Team Providers + +------+ + | Care Line Up Examiner Name | Role | Phone | + +------+ + PCP | Unavailable | + +------+ + Encounter Details +--------+ + + + + | Date | Type | Department | Care Team | Description | +--------+ + + + + | 01/13/ | Documentati | Neurology at | Sy Goodwin, | | | 2007 | on | [facility] & | MD [place] [address] | | | | | [address] | [place], [place] | | | | | Rj Fox Mail Code: | [address] | | | | | [facility] | [phone] | | | | | Health [facility] He[facility], | | | | | | [address] [place] [address], | | | | | | [place] [address] | | | | | | [phone] | | | +--------+ + + + [...]
--- OUTSIDE RECORDS SUMMARY | ~2019-03-17 | XMS | Encounter Summary ---
Demographics + + + | Address | [address] | | | [place] [address] | + + + | Home Phone | | + + + | Preferred Language | Unknown | + + + | Marital Status | | + + + | Zoroastrianism Affiliation | Unknown | + + + | Race | Unknown | + + + | Ethnic Group | Unknown | + + + Author + + + | Author | [facility] | + + + | Organization | [facility] | + + + | Address | [...] Team Providers + +------+ + | Care Log Roller Name | Role | Phone | + +------+ + | Kushal Costa MD | PCP | | + +------+ + Encounter Details +--------+ + + + + | Date | Type | Department | Care Team | Description | +--------+ + + + + | 02/08/ | Telephone | [facility] | J[place], | | | 2019 | | [place] [address] | [address] | | | | | [address] | | | | | | [place] [address] | | | | | | [phone] | | | +--------+ + + + [...] [address] | | | | | | [place] [address] | | | | | | [phone] | | | | | | | [...] [place] | | | | | | [address] | | | | | | | | +--------+ + + + + | 09/08/ | Office | Cardiology | Sparkle Brady, | | | 2018 | Visit | | [address] | | | | | | [address], | | | | | | [place] [address] | | | | | | [phone] | | | | | | | | +--------+ + + + + as of this encounter Visit Diagnoses Not on filein this encounter"
--- OUTSIDE RECORDS SUMMARY | ~2019-03-17 | XMS | Encounter Summary ---
Demographics + + + | Address | [address] | | | [place] [address] | + + + | Home Phone | | + + + | Preferred Language | Unknown | + + + | Marital Status | | + + + | Mormon Affiliation | Unknown | + + + | Race | Unknown | + + + | Ethnic Group | Unknown | + + + Author + + + | Author | [facility] | + + + | Organization | [facility] | + + + | Address | [...] Team Providers + +------+ + | Care Car Painter Name | Role | Phone | + +------+ + | Kushal Costa MD | PCP | | + +------+ + Encounter Details +--------+ + + + + | Date | Type | Department | Care Team | Description | +--------+ + + + + | 03/09/ | Telephone | [facility] | Madison Kerr MA | | | 2018 | | [place] | | | | | | [address] | | | | | | [place] | | | | | | [address] | | | | | | [phone] | | | +--------+ + + + [...] +---------+ + | No | | | rare | + + +---------+ + + [...] [address] | | | | | | [address] | | | | | | [place] [address] | | | | | | [phone] | | | | | | | [...] [place] | | | | | | [address] | | | | | | | | +--------+ + + + + | 09/08/ | Office | Cardiology | Sparkle Brady, | | | 2018 | Visit | | [address] | | | | | | [address], | | | | | | [place] [address] | | | | | | [phone] | | | | | | | | +--------+ + + + + as of this encounter Visit Diagnoses Not on filein this encounter"
--- OUTSIDE RECORDS SUMMARY | ~2019-03-17 | XMS | Encounter Summary ---
Demographics + + + | Address | [address] | | | [place] [address] | + + + | Home Phone | | + + + | Preferred Language | Unknown | + + + | Marital Status | | + + + | Zoroastrian Affiliation | Unknown | + + + | Race | Unknown | + + + | Ethnic Group | Unknown | + + + Author + + + | Author | [facility] | + + + | Organization | [facility] | + + + | Address | [...] Team Providers + +------+ + | Care Cost Recovery Technician Name | Role | Phone | + +------+ + | Kushal Costa MD | PCP | | + +------+ + Reason for Visit +--------+ + | Reason | Comments | +--------+ + | Other | [facility] | +--------+ + Encounter Details +--------+ + + + + | Date | Type | Department | Care Team | Description | +--------+ + + + + | 03/12/ | Documentati | [facility] | [facility] | Other ([facility] | | 2019 | on Only | Cardiology [place] | [address] | records) | | | | [address] | | | | | | [place] | | | | | | [address] | | | | | | [phone] | | | +--------+ + + + [...] | | | | | | [place] [address] | | | | | | [phone] | | | | | | | [...] | | | | | [address] [place] | | | | | | [address] | | | | | | | | +--------+ + + + + | 09/08/ | Office | Cardiology | Sparkle Brady, | | | 2018 | Visit | | [address] | | | | | | [address], | | | | | | [place] [address] | | | | | | [phone] | | | | | | | | +--------+ + + + + as of this encounter Visit Diagnoses Not on filein this encounter"
--- OUTSIDE RECORDS SUMMARY | ~2019-03-17 | XMS | Clinical Summary ---
Demographics + + + | Address | [address] | | | [place] [address] | + + + | Home Phone | | + + + | Preferred Language | Unknown | + + + | Marital Status | | + + + | Druze Affiliation | Unknown | + + + | Race | Unknown | + + + | Ethnic Group | Unknown | + + + Author + + + | Author | [facility] | + + + | Organization | [facility] | + + + | Address | [...] Team Providers + +------+ + | Care Dental Manager Name | Role | Phone | + +------+ + | Kushal Costa MD | PP | | + [...] + + + Current Medications + + +--------+---------+------+------+-------+ | Prescription | Sig. | Disp. | Refills | Star | End | Statu | | | | | | t | Date | s | | | | | | Date | | | + + +--------+---------+------+------+-------+ | PARoxetine (PAXIL) | Take 20 mg by mouth | | | | | Activ | | 20 MG tablet | every morning. | | | | | e | + + +--------+---------+------+------+-------+ | ascorbic acid | Take 1,000 mg by | | | | | Activ | | (VITAMIN C) 500 MG | mouth daily. | | | | | e | | tablet | | | | | | | + + +--------+---------+------+------+-------+ | aspirin 81 MG | Take 81 mg by mouth | | | | | Activ | | chewable tablet | daily with | | | | | e | | | breakfast. | | | | | | + + +--------+---------+------+------+-------+ | mometasone | Apply topically | | | | | Activ | | (ELOCON) 0.1 % cream | daily. | | | | | e | + + +--------+---------+------+------+-------+ | allopurinol | Take 2 tablets by | 60 | 11 | 06/0 | 06/0 | Activ | | (ZYLOPRIM) 100 MG | mouth daily. | tablet | | 4/20 | 4/20 | e | | tablet | | | | 18 | 19 | | + + +--------+---------+------+------+-------+ | atorvastatin | Take 20 mg by mouth | | | | | Activ | | (LIPITOR) 20 MG | nightly. | | | | | e | | tablet | | | | | | | + + +--------+---------+------+------+-------+ | pramipexole | Take 0.125 mg by | | | | | Activ | | (MIRAPEX) 0.125 MG | mouth 2 (two) times | | | | | e | | tablet | daily as needed. | | | | | | + + +--------+---------+------+------+-------+ | | Take 1 tablet by | | | | | Activ | | HYDROcodone-acetamin | mouth every 6 (six) | | | | | e | | ophen (NORCO) 5-325 | hours as needed for | | | | | | | MG per tablet | Pain. | | | | | | + + +--------+---------+------+------+-------+ | cholecalciferol | Take 1,000 Units by | | | | | Activ | | (VITAMIN D-3) 1000 | mouth daily. | | | | | e | | units tablet | | | | | | | + + +--------+---------+------+------+-------+ | torsemide | Take 1 tablet by | 60 | 11 | 05/1 | 05/1 | Activ | | (DEMADEX) 20 MG | mouth 2 (two) times | tablet | | 5/20 | 4/20 | e | | tablet | daily. | | | 19 | 20 | | + + +--------+---------+------+------+-------+ | metolazone 5 MG | Take 1 tablet by | 60 | 11 | 05/1 | 05/1 | Activ | | tablet | mouth daily. 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 | 03/01/2019 | + + + | Anemia of chronic renal failure, stage 3 (moderate) ([facility]) | 02/15/2019 | + + + | Pulmonary hypertension (HCC) | 12/27/2018 | + + + | Right heart failure (HCC) | 12/27/2018 | + + + | Chronic diastolic heart failure (HCC) | 12/27/2018 | + + + | Electrolyte imbalance [...] disease) stage 3, GFR 30-59 ml/min (HCC) | 10/27/2017 | + + + | [...] Date | + + + + | IZZY (acute kidney injury) (HCC) | 01/07/20 | | | | 19 | 9 | + + + + | SOB (shortness of breath) | 12/28/19 | | | | 19 | 9 | + + + + | Volume overload | 09/16/20 | | | | 18 | 9 | + + + + Encounters +--------+ + + + + | Date | Type | Specialty | Care Team | Description | +--------+ + + + + | 03/12/ | Documentati | | Yamilet Sidhu | Other ([facility] | | 2018 | on Only | | [facility] | records) | +--------+ + + + + | 03/12/ | Telephone | | Jatinder, | | | 2019 | | | JOSÉ MIGUEL Cannon | | +--------+ + + + + 03/09/ | Telephone | | Madison Kerr MA | | | 2018 | | | | | +--------+ + + + 03/03/ | Office | | Sparkle Brady, | Pulmonary | | 2018 | Visit | | MD | hypertension (HCC) | | | | | | (Primary Dx); | | | | | | Chronic right-sided | | | | | | heart failure (HCC); | | | | | | CKD (chronic kidney | | | | | | disease) stage 3, | | | | | | GFR 30-59 ml/min | | | | | | (HCC); Essential | | | | | | hypertension, | | | | | | benign; Pacemaker at | | | | | | end of battery | | | | | | life; Chronic | | | | | | diastolic heart | | | | | | failure (HCC) | +--------+ + + + + | 03/03/ | Telephone | | Madison Kerr MA | | | 2018 | | | | | +--------+ + + + + | 03/01/ | Orders Only | | Sparkle Brady, | Pacemaker at end of | | 2019 | | | MD | battery life | +--------+ + + + + | 02/16/ | Documentati | | | Pacemaker Check | | 2018 | on Only | | | (in-office) | +--------+ + + + + | 02/15/ | Office | | Danny Gandara MD | CKD (chronic kidney | | 2019 | Visit | | | disease) stage 3, | | | | | | GFR 30-59 ml/min | | | | | | ([facility]) (Primary Dx); | | | | | | Bilateral lower | | | | | | extremity edema; | | | | | | Anemia of chronic | | | | | | renal failure, stage | | | | | | 3 (moderate) ([facility]); | | | | | | Electrolyte | | | | | | imbalance risk; | | | | | | Hyperuricemia | +--------+ + + + + | 02/15/ | Telephone | | Jatinder, | | | 2019 | | | JOSÉ MIGUEL Cannon | | +--------+ + + + + | 02/15/ | Documentati | | Jatinder, | Other (Nikhil Rocheerd | | 2018 | on Only | | JOSÉ MIGUEL Cannon | Home Health | | | | | | discharge summary ) | +--------+ + + + + | 02/15/ | Documentati | | Jatinder | Labs Only (01/11/19 | | 2019 | on Only | | JOSÉ MIGUEL Cannon | BNP PSA) | +--------+ + + + + | 02/12/ | Documentati | | Jatinder | Denzel Only (02/11/19) | | 2018 | on Only | | JOSÉ MIGUEL Cannon | | +--------+ + + + + | 02/12/ | Orders Only | | Jatinder | CKD (chronic kidney | | 2018 | | | JOSÉ MIGUEL Cannon | disease) stage 3, | | | | | | GFR 30-59 ml/min | | | | | | ([facility]); Essential | | | | | | hypertension, | | | | | | benign; Hypokalemia | +--------+ + + + + | 02/08/ | Telephone | | Jatinder, | | | 2018 | | | JOSÉ MIGUEL Cannon | | +--------+ + + + + | 02/05/ | Documentati | | Danny Gandara MD | Other (02/05/19 | | 2018 | on Only | | | Chart note from | | | | | | Kushal Costa, | | | | | | ) | +--------+ + + + + | 01/29/ | Documentati | | Delmis Tobias Only (01/28/19) | | 2019 | on Only | | JOSÉ MIGUEL Cannon | | +--------+ + + + + | 12/27/ | Hospital | | Enriqueta Reese, | Hypervolemia, | | 2019 - | Encounter | [...] | | | - | | | Oz | | | Nellie | | | [...] | | Patient | | | ID:Michael J | | | BanducciMRN | | | : | | | [id number]/ | | | [id number] | | | y.o.Admit | | | [...] | | discussed | | | with | | | [place], the | | [...] | | | with | | | distance education coordinator. | | | Wound | | | [...] | | | ls: | | | 01/07/ | | | 2027 | | | [...] | | | 8 | | | 53 | | | 6 NA 140 | [...] | | | 8 | | | 53 | | | 6 PHOS 3.6 | | | 3.3 3.5 | | | Recent | | | LabsLab | | | | | | 2 | | | | | | 9 | | | 54 | | | 4 MG 2.1 | | | 2.1 2.3 | | | Invalid | | | input(s): | | | ABGDisposit | | | ion: | | | HomeFollow | | | up:Kushal | | | Igor, | | | [id number] | [address], [place] | | | [address] | | | n [place] | | | [phone] | | | [phone] | | | [...] | | | [place] | | | [id number] | | | [phone] | | | [...] | | | Padayatty, | | | MD01/08/2019 | | | 9:30 | | | [...] See, Medical | Chest pain, | | 2018 | Encounter | | Record | unspecified type | +--------+ +---+ + + | 12/26/ | Ancillary | | See, Medical | Chest pain, | | 2018 | Orders | | Record | unspecified type | +--------+ +---+ + + from Last [...] + + + | Blood Pressure | 134/70 | 03/03/2019 3:46 PM PDT | + + + + | Pulse | 82 | 03/03/2019 3:46 PM PDT | + + + + | Temperature | 36.3 C (97.4 F) | 01/08/2019 8:14 AM PDT | + + + + | Respiratory Rate | 18 | 01/08/2019 8:14 AM PDT | + + + + | Oxygen Saturation | 95% | 03/03/2019 3:46 PM PDT | + + + + | Inhaled Oxygen | - | - | | Concentration | | | + + + + | Weight | 119.4 kg (263 lb 4.8 | 03/03/2019 3:46 PM PDT | | | oz) | | + + + + | Height | 167.6 cm (5' 6") | 03/03/2019 3:46 PM PDT | + + + + | Body Mass Index | 42.5 | 03/03/2019 3:46 PM PDT | + + + + Plan of Treatment +--------+ + + + + | Date | Type | Specialty | Care Team | Description | +--------+ + + + + | 03/31/ | Initial | | Willie Ortiz | | | 2019 | consult | | MD [address] | | | | | | [address] | | | | | | [place] [address] | | | | | | [phone] | | | | | | | | +--------+ + + + + | 03/31/ | Documentati | | | | | 2018 | on Only | | | | +--------+ + + + + | 04/19/ | Office | | Danny Gandara MD | | | 2018 | Visit | | [address] | | | | | | [address] [place] | | | | | | [phone] | | | | | | | | +--------+ + + + + | 09/08/ | Office | | Sparkle Brady, | | | 2018 | Visit | | [address] | | | | | | [address] [place], | | | | | | [place] [address] | | | | | | [phone] | | | | | | | [...] 65+ | 5 | | | | High/Highest Risk (1 | | | | | [...] FUNCTION PANEL | Routin | 02/11/2019 | CKD (chronic | Results for this | | | e | 12:20 PM | kidney disease) | procedure are in the | | | | PDT | stage 3, GFR 30-59 | results section. | | | | | ml/min (HCC) | | | | | | Essential | | | | | | hypertension, benign | | | | | | Hypokalemia | | + +--------+ + + + | MAGNESIUM | Routin | 02/11/2019 | CKD (chronic | Results for this | | | e | 12:20 PM | kidney disease) | procedure are in the | | | | PDT | stage 3, GFR 30-59 | results section. | | | | | ml/min (HCC) | | | | | | Essential | | | | | | hypertension, benign | | | | | | Hypokalemia | | + +--------+ + + + | CBC W/AUTO DIFF | Routin | 02/11/2019 | CKD (chronic | Results for this | | (REFLEX TO MANUAL) | e | 12:20 PM | kidney disease) | procedure are in the | | | | PDT | stage 3, GFR 30-59 | results section. | | | | | ml/min (HCC) | | | | | | Essential | | | | | | hypertension, benign | | | | | | Hypokalemia | | + +--------+ + + + [...] | + +--------+ + + + | PSA | Routin | 01/11/2019 | | Results for this | | | e | 4:49 PM | | procedure are in the | | | | PDT | | results section. | + +--------+ + + + | BRAIN NATRIURETIC | Routin | 01/11/2019 | | [...] section. | + +--------+ + + + from Last 3 Months Results CBC W/Auto Diff (Reflex to Manual) (02/11/2019 12:20 PM)Only the most recent of 12 results within the time period is included. + + + + + | Component | Value | Ref Range | Performed At | + + + + + | WBC | 8.7 | 4.5 - 11.0 10^3/mL | [facility] | | | | | [facility] | + + + + + | RBC | 3.70 (A) | 4.3 - 5.7 10^6/ L | [facility] | | | | | [facility] | + + + + + | HGB | 11.0 (A) | 13.5 - 18.0 g/dL | [facility] | | | | | [facility] | + + + + + | HCT | 34.0 (A) | 41 - 50 % | [facility] | | | | | [facility] | + + + + + | MCV | 91.9 | 81 - 99 fL | [facility] | | | | | [facility] | + + + + + | MCH | 30 | 27 - 33 pg | [facility] | | | | | [facility] | + + + + + | MCHC | 32 | 30 - 36 g/dL | [facility] | | | | | [facility] | + + + + + | PLT | 190 | 140 - 440 K/ L | [facility] | | | | | [facility] | + + + + + | RDW SD | 18.0 (A) | 10.5 - 15.0 % | [facility] | | | | | [facility] | + + + + + | MPV | | fL | [facility] | | | | | [facility] | + + + + + | DIFF TYPE | | | [facility] | | | | | [facility] | + + + + + | NEUTROPHILS | 81.4 (A) | 39 - 80 % | [facility] | | | | | [facility] | + + + + + | LYMPHOCYTES | 5.1 (A) | 24 - 44 % | [facility] | | | | | [facility] | + + + + + | MONOCYTES | 5.1 | 0 - 12 % | [facility] | | | | | [facility] | + + + + + | EOSINOPHILS | 7.3 (A) | 0 - 6 % | [facility] | | | | | [facility] | + + + + + | BASOPHILS | 1.1 | 0 - 2 % | [facility] | | | | | [facility] | + + + + + | NEUTROPHILS ABS | | / L | [facility] | | | | | [facility] | + + + + + | LYMPHOCYTES ABS | | / L | [facility] | | | | | [facility] | + + + + + | MONOCYTES ABS | | / L | [facility] | | | | | [facility] | + + + + + | EOSINOPHILS ABS | | / L | [facility] | | | | | [facility] | + + + + + | BASOPHILS ABS | | / L | [facility] | | | | | [facility] | + + + + + + + | Specimen | + + | Blood | + + + + + + + | Performing | Address | City/State/Zipcode | Phone Number | | Organization | | | | + + + + + | [facility] | [address] | [place] [address] | [phone] | | LABORATORY | [address] | | | + + + + + Magnesium (02/11/2019 12:20 PM)Only the most recent of 11 results within the time period is included. + +-------+ + + | Component | Value | Ref Range | Performed At | + +-------+ + + | MAGNESIUM | 1.8 | 1.7 - 2.5 mg/dL | [facility] | | | | | LAB[facility]AT[facility] | + +-------+ + + + + | Specimen | + + | Blood | + + + + + + + | Performing | Address | City/State/Zipcode | Phone Number | | Organization | | | | + + + + + | [facility] | [address] | [place] [address] | [phone] | | LABORATORY | [address] | | | + + + + + Renal function panel (02/11/2019 12:20 PM)Only the most recent of 11 results within the is included. + + + + + | Component | Value | Ref Range | Performed At | + + + + + | GLUCOSE | 81 | 70 - 100 mg/dL | [facility] | | | | | LABORAT[facility] | + + + + + | BUN | 51 (A) | 6 - 23 mg/dL | [facility] | | | | | LAB[facility] | + + + + + | CREATININE | 1.95 (A) | 0.70 - 1.18 mg/dL | [facility] | | | | | LAB[facility] | + + + + + | PHOSPHORUS | 3.3 | 2.5 - 5.0 mg/dL | [facility] | | | | | [facility] | + + + + + | Albumin | 3.7 | 3.5 - 5.0 | [facility] | | | | | LAB[facility] | + + + + + | SODIUM | 141 | 132 - 143 mmol/L | [facility] | | | | | LAB[facility] | + + + + + | POTASSIUM | 3.7 | 3.6 - 5.1 mmol/L | [facility] | | | | | LAB[facility] | + + + + + | CHLORIDE | 99 | 95 - 112 mmol/L | [facility] | | | | | LAB[facility] | + + + + + | CO2 | 30 (A) | 95 - 112 mmol/L | [facility] | | | | | LAB[facility] | + + + + + | ANION GAP AGAP | 15.7 | 7 - 21 mmol/L | [facility] | | | | | LAB[facility] | + + + + + | GFR MDRD Non Af Amer | | | [facility] | | | | | LABORAT[facility] | + + + + + | Phosphorus,Inorganic | | | [facility] | | | | | LAB[facility] | + + + + + | BUN/CREAT | 26.2 | 6.0 - 28.6 | [facility] | | | | | LAB[facility] | + + + + + | CALCIUM | 8.7 | 8.5 - 10.3 mg/dL | [facility] | | | | | LAB[facility] | + + + + + | EGFR | 33 (A) | 60 - 140 mg/dL | [facility] | | | | | LABORATORY | + + + + + + + | Specimen | + + | Blood | + + + + + + + | Performing | Address | City/State/Zipcode | Phone Number | | Organization | | | | + + + + + | [facility] | [address] | [place] [address] | [phone] | | LABORATORY | [address] | | | + + + + + Comprehensive metabolic panel (01/28/2019)Only the most recent of 2 results within [...] + + | Blood | + + Prostate specific Ag (01/11/2019 4:49 PM) + +-------+ + + | Component | Value | Ref Range | Performed At | + +-------+ + + | PROSTATE SPECIFIC AG | 0.259 | 0.0 - 4.0 ng/mL | | + +-------+ + + + + | Specimen | + + | Blood | + + Brain natriuretic peptide (01/11/2019 4:49 PM)Only the most recent of 2 results within the time period is included. + +-------+ + + | Component | Value | Ref Range | Performed At | + +-------+ + + | BRAIN NATRIURETIC | 36 | 0 - 100 pg/mL | | | PEPTIDE | | | | + +-------+ + + + + | Specimen | + + | Blood | + + PROCALCITONIN (12/31/2018 5:21 AM) + + + + + | Component | Value | Ref Range | Performed At | + + + + + | PROCALCITONIN | 0.16Comment: | <0.5 ng/mL | [facility] | | | INTERPRETIVE | | [...] performed | | | | | at [facility];[address] [place] [address] | | | | | [facility] [address] | | | + + + + + + + + + + | Performing | Address | City/State/Zipcode | Phone Number | | Organization | | | | + + + + + | [facility] | [address] | [place] [address] | | + + + + + [...] Note | + + | Edgardo Piper Results In 12/30/2018 12:47 PM PDT LOWER EXTREMITY ARTERIAL [...] Moderate.50-.59 Severe< .49 SevereSigned by: Rachel | Delmis Nava Date/Time: 12/30/2018 12:43 PM | |RIGHT | [...] | + + + + + | [facility] | [address] | [place] [address] | | + + + + + Basic metabolic panel (12/29/2018 5:55 AM)Only the most recent of 2 results within the period is included. + + + + [...] the | | | | | MDRD IDNM traceable | | | | | equation.Testing | | | | | performed at [facility], [address] | | | | | [facility], | | | | | [place] [address] | | | + + + + + + + | Specimen | + + | Blood | + + + + + + + | Performing | Address | City/State/Zipcode | Phone Number | | Organization | | | | + + + + + | [facility] | [address] | [place] [address] | [phone] | | LABORATORY | [address] | | [...] | | | Signed by: Keyon Gray Sign Date/Time: 12/28/2018 1:56 PM | | + [...] | + + + + + | [facility] | [address] | [place] [address] | | + + + + + NM cardiovascular stress treadmill (12/28/2018 12:54 PM) + + + + + | Component | Value | Ref Range | Performed At | + + + + + | Diagnosis | Non diagnostic | | [facility] | | | pharmacological EKG | [...] | + + + + + | [facility] | [address] | [place] [address] | | + + + + + Reticulocyte count (12/27/2018 4:43 PM) + + + + + | Component | Value | Ref Range | Performed At | + + + + + | RETICULOCYTES | 1.4Comment: Testing | 0.4 - 2.7 % | [facility] | | | performed at [facility];[address];[place] | | | | | [address] | | | + + + + + + + + + + | Performing | Address | City/State/Zipcode | Phone Number | | Organization | | | | + + + + + | [facility] | [address] | [place] [address] | | + + + + + Echo cardiac adult complete (12/27/2018 9:01 AM) + +-------+ + + | Component | Value | Ref Range | Performed At | + +-------+ + + | LV EF | 65 | 50 - 70 % | [facility] | | | | | RADI[facility] | [...] Michael Joshi Date of : 1940 | [facility] | | Performing Physician: Pedrito | RADIOLOGY | | Ca GARZA | | | | | | ------REPORT ADDENDED------ INDICATIONS acute [place] | | | CONCLUSIONS 1. This was [...] | | calcified. Aortic Valve: There is vfsq-te-olutrrwn aortic | | | regurgitation. Mitral Valve: [...] | | mmHg TR Vmax: 3.49 m/s General Scrap Worker: ROSY Authenticated by: | | | Pedrito Taylor MD Report Date/Time: 12-27-2018 13:58:10 | | + + + + + | Procedure Note | + + | Feliz, Rad Results In - 12/27/2018 1:58 PM PDT Patient Name: Lorrie Joshi | | : 1940Accession: [id number] Physician: Pedrito Taylor | | MD ------REPORT | | ADDENDED------INDICATIONS acute MICONCLUSIONS 1. [...] is mildly calcified. Aortic Valve: There is xgjd-ml-xiuenqnm aortic | | regurgitation.Mitral Valve: Mild mitral [...] mlLAESV Index (A-L): 109.85 ml/m2LAAs A2C: 64.13 [id number] A-L A2C: 351.26 | | mlLALs A2C: 9.93 cmLAAs A4C: 45.52 [id number] A-L A4C: 173.98 mlLALs A4C: 10.11 | | cmTAPSE: 1.10 cmHR: 80.22 BPMAV maxP.70 mmHgAV meanP.31 mmHgAV Vmax: | | 1.55 m/Davie Vmean: 1.10 m/Davie VTI: 33.13 cmAVA Vmax: 2.73 cm2AVA (VTI): 2.82 | | md7YGYJ Vmax: 0.00 cm2/m2AVAI (VTI): 0.00 cm2/m2LVCI Dopp: 2.84 l/leld4RZCB Dopp: | | 6.45 l/minHR: 68.91 BPMLVOT [...] |TR Vmax: 3.49 m/s | | | |General Scrap Worker: MW | |Authenticated by: Pedrito Taylor MD [...] | + + + + + | [facility] | [address] | [place] [address] | | + + + + + Troponin I (12/27/2018 7:51 AM)Only the most recent of 2 results within the time period is included. + + + + + | Component | Value | Ref Range | Performed At | + + + + + | TROPONIN I | 0.046 (H)Comment: 0.04 | 0.00 - 0.04 ng/mL | [facility] | | | ng/mL or | [...] performed | | | | | at [facility];[address] | | | [address];[place] [address] | | | + + + + + + + | Specimen | + + | Blood | + + + + + + + | Performing | Address | City/State/Zipcode | Phone Number | | Organization | | | | + + + + + | [facility] | [address] | [place] [address] | | + + + + + [...] | | | | | [place] [address] | | | + + + + + + + | Specimen | + + | Blood | + + + + + + + | Performing | Address | City/State/Zipcode | Phone Number | | Organization | | | | + + + + + | [facility] | [address] | [place] [address] | [phone] | | LABORATORY | [address] | | | + + + + + TSH (12/27/2018 5:17 AM) + + + + + | Component | Value | Ref Range | Performed At | + + + + + | TSH | 1.500Comment: Testing | 0.450 - 5.100 uIU/mL | [facility] | | | performed at [facility], [address] | | LABORATORY | | | [address], | | | | | [place] [address] | | | + + + + + + + | Specimen | + + | Blood | + + + + + + + | Performing | Address | City/State/Zipcode | Phone Number | | Organization | | | | + + + + + | [facility] | [address] | [place] [address] | [phone] | | LABORATORY | [address] | | | + + + + + Phosphorus (12/27/2018 5:17 AM) + + + + + | Component | Value | Ref Range | Performed At | + + + + + | PHOSPHORUS | 3.2Comment: Testing | 2.3 - 4.8 mg/dL | [facility] | | | performed at [facility], [address] | | LABORATORY | | | [facility], | | | | | [place] [address] | | | + + + + + + + | Specimen | + + | Blood | + + + + + + + | Performing | Address | City/State/Zipcode | Phone Number | | Organization | | | | + + + + + | [facility] | [address] | [place] [address] | [phone] | | LABORATORY | [address] | | [...] | 111Comment: Estimated | <154 mg/dL | [facility] | | GLUCOSE | Average Glucose | | LABORATORY | | | calculated from | | | | | hemoglobin A1c by use of | | | | | the ADA recommended | | | | | formula.Testing | | | | | performed at [facility], [address] | | | | | [facility], | | | | | [place] [address] | | | + + + + + + + | Specimen | + + | Blood | + + + + + + + | Performing | Address | City/State/Zipcode | Phone Number | | Organization | | | | + + + + + | [facility] | [address] [facility] | [place] [address] | [phone] | | LABORATORY | [address]vd[address] | | | + + + + + Ferritin (12/27/2018 5:17 AM) + + + + + | Component | Value | Ref Range | Performed At | + + + + + | FERRITIN | 33Comment: Testing | 11 - 450 ng/mL | [facility] | | | performed at [facility], [address] | | LABORATORY | | | [facility], | | | | | [place] [address] | | | + + + + + + + | Specimen | + + | Blood | + + + + + + + | Performing | Address | City/State/Zipcode | Phone Number | | Organization | | | | + + + + + | [facility] | [address] | [place] [address] | [phone] | | LABORATORY | [address] | | [...] | [facility] | | | performed at [facility], [address] | | LABORATORY | | | [address], | | | | | [place] [address] | | | + + + + + + + | Specimen | + + | Blood | + + + + + + + | Performing | Address | City/State/Zipcode | Phone Number | | Organization | | | | + + + + + | [facility] | [address] [facility] | [place] [address] | [phone] | | LABORATORY | [address] | | [...] + + + + | Calculated R Astatula | 10 | degrees | [facility] | + + + + + | Calculated T Astatula | 0 | degrees | [facility] | + + + + + | Diagnosis | Junctional | | [facility] | | | rhythmVentricular demand | [...] | + + + + + | [facility] | [address] | [place] [address] | | + + + + + X-ray chest 2 view frontal & lateral (12/26/2018 10:56 PM) + + + | Narrative | Performed At | + + + | This is a non-reportable procedure without a radiologist report and | [facility] | | is used for image storage only | RADIOLOGY | + + + + + + + + | Performing | Address | City/State/Zipcode | Phone Number | | Organization | | | | + + + + + | [facility] | [address] | [facility] [address] | | + + + + + from Last 3 Months Insurance + +--------+ +------+-------+ + | Payer | Benefi | Subscriber | Type | Phone | Address | | | t Plan | ID | | | | | | / | | | | | | | Group | | | | | + +--------+ +------+-------+ + | MEDICARE | MEDICA | [id number] | | | [address] | | | RE | | | | [place] [address] | | | IP-OP | | | [...] | Self | [birth year] | Home: | [address] [place] [address] | | | al/Fam | | [phone] | [phone] | [place] | | | lissy | | | [phone] | [address] | + +--------+ +--------+ + +
--- OUTSIDE RECORDS SUMMARY | ~2019-03-17 | XMS | Clinical Summary ---
Demographics + + + | Address | [address] | | | [place] [address] | + + + | Home Phone | | + + + | Preferred Language | Unknown | + + + | Marital Status | Single | + + + | Druze Affiliation [...] Team Providers + +------+ + | Care Insert Operator Name | Role | Phone | + +------+ + PP | Unavailable | + +------+ + Source Comments PUSH[facility] is fully live on both [facility] Ambulatory and [facility] InPatient.[facility] Allergies Not on File Medications Not on [...]
--- OUTSIDE RECORDS SUMMARY | ~2019-03-17 | XMS | Encounter Summary ---
Demographics + + + | Address | [address] | | | [place] [address] | + + + | Home Phone | | + + + | Preferred Language | Unknown | + + + | Marital Status | | + + + | Yazdanism Affiliation | Unknown | + + + | Race | Unknown | + + + | Ethnic Group | Unknown | + + + Author + + + | Author | [facility] [employer] | + + + | Organization | [facility] [employer] | + + + | Address | [...] Team Providers + +------+ + | Care Filler Shredder Machine Name | Role | Phone | + +------+ + | Kushal Costa MD | PCP | | + +------+ + Encounter Details +--------+ + + + + | Date | Type | Department | Care Team | Description | +--------+ + + + + | 03/09/ | Telephone | [facility] | Madison Kerr MA | | | 2018 | | Cardiology [place] | | | | | | [address] | | | | | | [place] | | | | | | [address] | | | | | | [phone] | | | +--------+ + + + [...] | | | | | [place] [address] | | | | | | [phone] | | | | | | | [...] [place] | | | | | | [address] | | | | | | | | +--------+ + + + + | 09/08/ | Office | Cardiology | Sparkle Brady, | | | 2018 | Visit | | [address] | | | | | | Dr [place], | | | | | | [place] [address] | | | | | | [phone] | | | | | | | | +--------+ + + + + as of this encounter Visit Diagnoses Not on filein this encounter"
--- OUTSIDE RECORDS SUMMARY | ~2019-03-17 | XMS | Encounter Summary ---
Demographics + + + | Address | [address] | | | [place] [address] | + + + | Home Phone | | + + + | Preferred Language | Unknown | + + + | Marital Status | | + + + | Sabianist Affiliation | Unknown | + + + | Race | Unknown | + + + | Ethnic Group | Unknown | + + + Author + + + | Author | [facility] [employer] | + + + | Organization | [facility] [employer] | + + + | Address | Unknown | + + + | Phone | Unavailable | + + + Support + + +---------+ + | Name | Relationship | Address | Phone | + + +---------+ + | Allegra Joshi | ECON | Unknown | | + + +---------+ + | Caorl Garcia | ECON | Unknown | | + + +---------+ + Care Team Providers + +------+ + | Care Plier Worker Name | Role | Phone | + +------+ + | Kushal Costa MD | PCP | | + +------+ + Reason for Visit +--------+ + | Reason | Comments | +--------+ + | Other | 02/05/19 Chart note from Kushal Costa MD | +--------+ + Encounter Details +--------+ + + + + | Date | Type | Department | Care Team | Description | +--------+ + + + + | 02/05/ | Documentati | [facility] | Danny Gandara MD | Other (02/05/19 | | 2019 | on Only | [address] [address] | [address] | Chart note from | | | | [facility] [address] | [address] [place], [place] | Kushal Costa, | | | | [place] [address] | [address] | ) | | | | [phone] | | | +--------+ + + + [...] | | | | | | [address] | | | | | | [place] [address] | | | | | | [phone] | | | | | | | [...] [place] | | | | | | [address] | | | | | | | | +--------+ + + + + | 09/08/ | Office | Cardiology | Sparkle Brady, | | | 2018 | Visit | | MD Jennifer Elizabeth | | | | | | Dr [place], | | | | | | [place] [address] | | | | | | [phone] | | | | | | | | +--------+ + + + + as of this encounter Visit Diagnoses Not on filein this encounter"
--- OUTSIDE RECORDS SUMMARY | ~2019-03-17 | XMS | Encounter Summary ---
Demographics + + + | Address | [address] | | | [place] [address] | + + + | Home Phone | | + + + | Preferred Language | Unknown | + + + | Marital Status | | + + + | Protestant Affiliation | Unknown | + + + | Race | Unknown | + + + | Ethnic Group | Unknown | + + + Author + + + | Author | [facility] [employer] | + + + | Organization | [facility] [employer] | + + + | Address | [...] Team Providers + +------+ + | Care Cargo And Container Inspector Name | Role | Phone | + +------+ + | Kushal Costa MD | PCP | | + +------+ + Reason for Referral Cardiac Electrophysiology (Routine) + + + + + + + | Status | Reason | Specialty | Diagnoses / | Referred By | Referred To | | | | | Procedures | Contact | Contact | + + + + + + + | Authorized | Specialty | Electrophysio | Diagnoses | Caitlyn, | Diana | | | Services | logy / | Pacemaker | MD Sparkle | Willie | | | Required | Cardiology | at end of | [address] | MD [address]orgito | | | | | battery life | [address] | [address] | | | | | | [address] | [address] | | | | | | [facility] [place] | [place] | | | | | | [address] | [address] Phone: | | | | | | Phone: | [phone] | | | | | | [phone] | Fax: | | | | | | Fax: | [phone] | | | | | | [phone] | | + + + + + + + Encounter Details +--------+ + + + + | Date | Type | Department | Care Team | Description | +--------+ + + + + | 03/01/ | Orders Only | [facility] | Sparkle Brady, | Pacemaker at end of | | 2019 | | Cardiology Mara Benites MD [address] | battery life | | | | [address] | [address], | | | | | [facility] [place] | [place] [address] | | | | | [address] | [phone] | | | | | [phone] | | | +--------+ + + + [...] [address] | | | | | | [place] [address] | | | | | | [phone] | | | | | | | [...] [place] | | | | | | [address] | | | | | | | | +--------+ + + + + | 09/08/ | Office | Cardiology | Sparkle Brady, | | | 2018 | Visit | | [address] | | | | | | Dr [place], | | | | | | [place] [address] | | | | | | [phone] | | | | | | | | +--------+ + + + + + +--------+ + + | Name | Priori | Associated Diagnoses | Order Schedule | | | ty | | | + +--------+ + + | Ambulatory referral to Cardiac | Routin | Pacemaker at end | Ordered: 03/01/2019 | | Electrophysiology | e | of battery life | | + +--------+ + + as of this encounter Visit Diagnoses + + | Diagnosis | + + | 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 | + + | Fitting and adjustment of cardiac pacemaker | + +"
--- OUTSIDE RECORDS SUMMARY | ~2019-03-17 | XMS | Clinical Summary ---
Demographics + + + | Address | [address] | | | [place] [address] | + + + | Home Phone | | + + + | Preferred Language | Unknown | + + + | Marital Status | | + + + | Confucianism Affiliation | 1041 | + + + | Race | Unknown | + + + | Ethnic Group | Unknown | + + + Author + + + | Author | [facility] | | | and [place] | + + + | Organization | [facility] | | | and [...] Team Providers + +------+ + | Care Call Center Manager Name | Role | Phone | [...] | | + + + +---------+------+------+-------+ | simvastatin | Take 20 mg by mouth | | 0 | | | Activ | | (ZOCOR) 20 mg tablet | Daily. | | | | | e | + + + +---------+------+------+-------+ | metoprolol | Take 50 mg by mouth | | 0 | | | Activ | | tartrate (LOPRESSOR) | 2 times daily. | | | | | e | | 50 mg tablet | | | | | | | + + + +---------+------+------+-------+ | metOLazone | 1 tablet Orally one | | 0 | | | Activ | | (ZAROXOLYN) 5 MG | hour before | | | | | e | | tablet | torsemide | | | | | | + + + +---------+------+------+-------+ | amLODIPine | Take 5 mg by mouth | | 0 | | | Activ | | (NORVASC) 5 mg | Daily. | | | | | e | | tablet | | | | | | | + + + +---------+------+------+-------+ | PARoxetine (PAXIL) | Take 20 mg by mouth | | 0 | | | Activ | | 20 mg tablet | Daily. | | | | | e | + + + +---------+------+------+-------+ | mometasone | Apply 1 Application | | 0 | | | Activ | | (ELOCON) 0.1 % cream | topically Daily. | | | | | e | + + + +---------+------+------+-------+ | | Take 1 tablet by | | 0 | | | Activ | | HYDROcodone-acetamin | mouth every 6 hours | | | | | e | | ophen (NORCO) | as needed. | | | | | | | 7.5-325 [...] e | + + + +---------+------+------+-------+ | Bioflavonoid | Take by mouth. | | 0 | | | Activ | | Products (VITAMIN C) | | | | | | e | | CHEW | | | | | | | + + + +---------+------+------+-------+ | cholecalciferol | Take 1,000 Units by | | 0 | | | Activ | | (VITAMIN D-3) 1,000 | mouth Daily. | | | | | e | | units tablet | | | | | | | + + + +---------+------+------+-------+ Active Problems + + + | Problem | Noted Date | + + + | Low back pain, unspecified back pain laterality, unspecified | 06/11/2018 | | chronicity, with sciatica presence unspecified | | + + + | DDD (degenerative disc disease), lumbar | 06/11/2018 | + + + | Lumbar radiculopathy | 06/11/2018 | + + + | Spinal stenosis at L4-L5 level | 06/11/2018 | + + + Family History Patient is [...] + + + | Blood Pressure | 146/81 | 07/13/2018 1354 PDT | + + + + | Pulse | 77 | 07/13/2018 1354 PDT | + + + + | [...] Weight | 118.8 kg (262 lb) | 06/11/2018840 PDT | + + + + | Height | 167.6 cm (5' 6") | 06/11/2018840 PDT | + + + + | Body Mass Index | 42.29 | 06/11/2018840 PDT | + + + + Plan [...] + + | Vaccine: Influenza | | | | | (Season Ended) | 9 | | | + + + + + Results Not on filefrom Last 3 Months Insurance + +--------+ +--------+ +---------+--------+ | Payer | Benefi | Subscriber | Effect | Phone | Address | Type | | | t Plan | ID | qing | | | | | | / | | Dates | | | | | | Group | | | | | | + +--------+ +--------+ +---------+--------+ | MEDICARE | MEDICA | [id number] | 10/20/19 | [phone] | | Medica [...] | Self | [birth year] | | [address] | | | al/Fam | | 1941 | [phone] | [place] | | | [place] | | | 1 (Home) | [phone] | + +--------+ +--------+ + + Advance Directives Patient has advance care planning documents on file. For more information, please contact:[facility] [place] [address]
--- OUTSIDE RECORDS SUMMARY | ~2019-03-17 | XMS | Encounter Summary ---
Demographics + + + | Address | [address] | | | [place] [address] | + + + | Home Phone | | + + + | Preferred Language | Unknown | + + + | Marital Status | | + + + | Faith Affiliation | Unknown | + + + | Race | Unknown | + + + | Ethnic Group | Unknown | + + + Author + + + | Author | [facility] [employer] | + + + | Organization | [facility] [employer] | + + + | Address | [...] Team Providers + +------+ + | Care Parachute Accessories Attacher Name | Role | Phone | + +------+ + | Kushal Costa MD | PCP | | + +------+ + Encounter Details +--------+ + + + + | Date | Type | Department | Care Team | Description | +--------+ + + + + | 03/03/ | Telephone | [facility] | Madison Kerr MA | | | 2019 | | Cardiology [place] | | | | | | [address] | | | | | | [place] | | | | | | [address] | | | | | | [phone] | | | +--------+ + + + [...] | | | | | [place] [address] | | | | | | [phone] | | | | | | | [...] [place] | | | | | | [address] | | | | | | | | +--------+ + + + + | 09/08/ | Office | Cardiology | Sparkle Brady, | | | 2018 | Visit | | [address] | | | | | | Dr [address], | | | | | | [place] [address] | | | | | | [phone] | | | | | | | | +--------+ + + + + as of this encounter Visit Diagnoses Not on filein this encounter"
--- OUTSIDE RECORDS SUMMARY | ~2019-03-17 | XMS | Encounter Summary ---
Demographics + + + | Address | [address] | | | [place] [address] | + + + | Home Phone | | + + + | Preferred Language | Unknown | + + + | Marital Status | | + + + | Islam Affiliation | Unknown | + + + | Race | Unknown | + + + | Ethnic Group | Unknown | + + + Author + + + | Author | [facility] [employer] | + + + | Organization | [facility] [employer] | + + + | Address | [...] Team Providers + +------+ + | Care Standards Engineer Name | Role | Phone | + +------+ + | Kushal Costa MD | PCP | | + +------+ + Reason for Visit +--------+ + | Reason | Comments | +--------+ + | Other | [facility] discharge summary | +--------+ + Encounter Details +--------+ + + + + | Date | Type | Department | Care Team | Description | +--------+ + + + + | 02/15/ | Documentati | [facility] | Tobias, | Other ([facility] | | 2019 | on Only | [place] [address] | [address] | Home Health | | | | [address] | | discharge summary ) | | | | [place], [place] [address] | | | | | | [phone] | | | +--------+ + + + [...] Cardiology | Willie Ortiz | | | 2018 | consult | | MD [address] | | | | | | [address] | | | | | | [place] [address] | | | | | | [phone] | | | | | | | [...] [place] | | | | | | [id number] | | | | | | | | +--------+ + + + + | 09/08/ | Office | Cardiology | Sparkle Brady, | | | 2019 | Visit | | MD Jennifer [place] | | | | | | Dr [address], | | | | | | [place] [address] | | | | | | [phone] | | | | | | | | +--------+ + + + + as of this encounter Visit Diagnoses Not on filein this encounter"
--- OUTSIDE RECORDS SUMMARY | ~2019-03-17 | XMS | Encounter Summary ---
Demographics + + + | Address | [address] | | | [place] [address] | + + + | Home Phone [...] + | Author | [facility] [employer] | + + + | Organization | [facility] [employer] | + + + | Address | [...] Team Providers + +------+ + | Care Short Story Writer Name | Role | Phone | + +------+ + | Kushal Costa MD | PCP | | + +------+ + Encounter Details +--------+---------+ + + + | Date | Type | Department | Care Team | Description | +--------+---------+ + + + | 02/15/ | Office | [facility] | Danny Gandara MD | CKD (chronic kidney | | 2019 | Visit | [address] | [address] | disease) stage 3, | | | | [address] | [address] [place], [place] | GFR 30-59 ml/min | | | | [place] [address] | [address] | (HCC) (Primary Dx); | | | | [phone] | | Bilateral lower | | | | | | extremity edema; | | | | | | Anemia of chronic | | | | | | renal failure, stage | | | | | | 3 (moderate) (HCC); | | | | | | Electrolyte | | | | | | imbalance risk; | | | | | | Hyperuricemia | +--------+---------+ + + + Social History [...] + + + | Blood Pressure | 140/82 | 02/15/2019 10:08 AM PDT | + + + + | Pulse | 112 | 02/15/2019 10:08 AM PDT | + + + + | Temperature | - | - | + + + + | Respiratory Rate | - | - | + + + + | Oxygen Saturation | 96% | 02/15/2019 10:08 AM PDT | + + + + | Inhaled Oxygen | - | - | | Concentration | | | + + + + | Weight | 116.3 kg (256 lb 4.8 | 02/15/2019 10:08 AM PDT | | | oz) | | + + + + | Height | 167.6 cm (5' 6") | 02/15/2019 10:08 AM PDT | + + + + | Body Mass Index | 41.37 | 02/15/2019 10:08 AM PDT | + + + + in this encounter Instructions Patient Instructions - Danny Gandara MD - 02/15/2019 9:50 AM PDTDiscussions/Recommendatio ns: I discussed today with Mr. Joshi the [...] by a low salt & low purine diet and will avoid all kinds of NSAID s for analgesia. Also: As he is not sure about his diuretic regimen, I will have him call us back today with th e names, doses of his diuretics & the potassium supplement. I sent him for a repeat BMP in 1 week. He will report back to me his home BP & Weight readings in 1 week, then every 2 weeks. A t that time, I will decide whether any change to his vasoactive regimen is warranted. I asked him to elevate his legs for 1 hour once or twice a day. He knows that he still n eeds to be active and ambulatory carefully as possible. He will F/U with the Cardiology team closely. He will F/U with your office regularly. He will have a RFP, Magnesium, CBC, uric acid, iPTH before he comes back in 2 months.in this encounter Progress Notes Danny Gandara MD - 02/15/2019 9:50 AM PDTFormatting of this note may be different from th e original. Patient Active Problem List Diagnosis CKD (chronic kidney disease) stage 3, GFR 30-59 ml/min (HCC) Essential hypertension, benign Primary osteoarthritis involving multiple joints Hypokalemia Bilateral lower extremity edema Hyperuricemia Chronic atrial fibrillation (HCC) Cardiac pacemaker in situ Secondary hyperparathyroidism (HCC) Vitamin D deficiency Electrolyte imbalance risk GI bleeding NEETU (obstructive sleep apnea) Spinal stenosis at L4-L5 level Volume overload Pulmonary hypertension (HCC) Right heart failure (HCC) Chronic diastolic heart failure (HCC) IZZY (acute kidney injury) ([facility]) Dear Dr Costa: I saw your patient Mr. Joshi in the office on an urgent basis in hospital F/U today. A s you are familiar with his case, I will not state his past history in detail. Briefly, he is a 78 y.o. male patient with past history as delineated above; he is here to F/U on his C KD & its associated complications. He tells me he had CKD since ~2006; his GFR went down: e GFR of 27 on 10/21/17. He's had fluctuations [...] The patient has history of hypertension since 1979's; his BP control has been reportedly ad equate. he denies any history of prolonged exposure to NSAIDs or recent exposure to known ne phrotoxins. he denies any recurrent nephrolithiasis or pyelonephritis. he tells me that he's had no history of urinary retention, gross hematuria or dysuria; he has no incontinence sy mptoms. No symptoms of UTI. No history of frequency, nocturia, weak urinary stream, hesitanc y, intermittence, incomplete emptying or urgency; he has 2-3 times nightly nocturia. No hi story of passing kidney stones. he has no foamy urine either. his baseline Creatinine is TBD . There is no family history of renal genetic diseases such as PKD. he says that he feels 'good ' today. he denies any blurred vision tinnitus, headache, feve [...] reviewed with him the records from his most recent hospitalization, including the d ischarge summary. As in History of Present Illness & in Assessment. All the pertinent systems were reviewed a nd were otherwise negative. Current Outpatient Prescriptions Medication Sig Dispense Refill allopurinol (ZYLOPRIM) 100 MG tablet Take 2 tablets by mouth daily. 60 tablet 11 ascorbic acid (VITAMIN C) 500 MG tablet Take 1,000 mg by mouth daily. aspirin 81 MG chewable tablet Take 81 mg by mouth daily with breakfast. atorvastatin (LIPITOR) 20 MG tablet Take 20 mg by mouth nightly. cholecalciferol (VITAMIN D-3) 1000 units tablet Take 1,000 Units by mouth daily. mometasone (ELOCON) 0.1 % cream Apply topically daily. PARoxetine (PAXIL) 20 MG tablet Take 20 mg by mouth every morning. pramipexole (MIRAPEX) 0.125 MG tablet Take 0.125 mg by mouth 2 (two) times daily as nee ded. HYDROcodone-acetaminophen (NORCO) 5-325 MG per tablet Take 1 tablet by mouth every 6 (s ix) hours as needed for Pain. No current facility-administered medications for this visit. Physical Exam: BP 140/82 (BP Location: Left upper arm, Patient Position: Sitting) | Pulse 112 | Ht 1.676 m (5' 6") | Wt 116.3 kg (256 lb 4.8 oz) | SpO2 96% | BMI 41.37 kg/m General appearance: Pleasant, not in acute distress. [...] tenderness bilaterally. Extremities: Warm to touch with 3+ pitting edema bilaterally.There is no cyanosis. Skin: There are no rashes, petechiae; ecchymosis on arms. Neurological: Awake, alert, and oriented to time, place, and person. Normal gross motor po wer. There is no asterixis. Psychiatric: The patient s behavior is normal. Judgment and thought content are normal. Lab Results Component Value Date BUN 51 (A) 02/11/2019 CREATININE 1.95 (A) 02/11/2019 EGFR 33 (A) 02/11/2019 NA 141 02/11/2019 K 3.7 02/11/2019 CL 99 02/11/2019 CO2 30 (A) 02/11/2019 CA 8.7 02/11/2019 PHOS 3.3 02/11/2019 MG 1.8 02/11/2019 ALB 3.7 02/11/2019 HGB 11.0 (A) 02/11/2019 URICACID 9.0 (A) 10/23/2018 WBC 8.7 02/11/2019 HCT 34.0 (A) 02/11/2019 FERRITIN 33 12/27/2018 LABIRON 12 (L) 12/27/2018 LABPROT 286.2 (A) 11/20/2018 [id number] 06/29/2018 Assessment: Mr. Joshi is a 78 y.o. male patient with stage IIIB CKD on a background of longstanding hypertension & chronic heart failure with severe pulmonary hypertension. RENAL FUNCTION: GFR fluctuates with diuresis BLOOD PRESSURE: Reports it controlled at home BLOOD SUGAR: Reports it normal ELECTROLYTES: Mild hypokalemia (from loop diuresis) is better ANEMIA: Very mild VITAMIN D: Deficiency is being treatede PARATHYROID HORMONE: Mildly up URIC ACID: Hyperuricemia is moderate PROTEINURIA: Very mild URINALYSIS: No UTI or hematuria recently VOLUME STATUS: Euvolumic PERIPHERAL EDEMA: Still severe Discussions/Recommendations: I discussed today with Mr. Joshi [...] by a low salt & low purine diet and will avoid all kinds of NSAID s for analgesia. Also: As he is not sure about his diuretic regimen, I will have him call us back today with th e names, doses of his diuretics & the potassium supplement. I sent him for a repeat BMP in 1 week. He will report back to me his home BP & Weight readings in 1 week, then every 2 weeks. A t that time, I will decide whether any change to his vasoactive regimen is warranted. I asked him to elevate his legs for 1 hour once or twice a day. He knows that he still n eeds to be active and ambulatory carefully as possible. He will F/U with the Cardiology team closely. He will F/U with your office regularly. He will have a RFP, Magnesium, CBC, uric acid, iPTH before he comes back in [address] Costa for the opportunity to see this patient in hospital F/U on an urgent basis today as we are trying to prevent a hospitalization for severe electrolyte imbalance & /or severe volume extremes. Please do not hesitate to call me at any time with questions or concerns. Truly yours, Danny Gandara MD FACSheryl HAHN in this encounter Plan of Treatment +--------+ [...] | | | | | [place] [address] | | | | | | [phone] | | | | | | | [...] [place] | | | | | | [id number] | | | | | | | | +--------+ + + + + | 09/08/ | Office | Cardiology | Sparkle Brady, | | | 2018 | Visit | | MD Jennifer Elizabeth | | | | | | Dr [address], | | | | | | [place] [address] | | | | | | [phone] | | | | | | | | +--------+ + + + + as of this encounter Visit Diagnoses + + | Diagnosis | + + | CKD (chronic kidney disease) stage 3, GFR 30-59 ml/min ([facility]) - Primary | + + | Chronic kidney disease, Stage III (moderate) | + + | Bilateral lower extremity edema | + + | Edema | + + | Anemia of chronic renal failure, stage 3 (moderate) (HCC) | + + | Electrolyte imbalance risk | + + | Other specified conditions influencing health status | + + | Hyperuricemia | + + | Other abnormal blood chemistry | + +
--- OUTSIDE RECORDS SUMMARY | ~2019-03-17 | XMS | Encounter Summary ---
Demographics + + + | Address | [address] | | | [place] [address] | + + + | Home Phone | | + + + | Preferred Language | Unknown | + + + | Marital Status | | + + + | Oriental Orthodox Affiliation | Unknown | + + + | Race | Unknown | + + + | Ethnic Group | Unknown | + + + Author + + + | Author | [facility] | + + + | Organization | [facility] | + + + | Address | [...] Team Providers + +------+ + | Care Fur Machine Operator Name | Role | Phone | + +------+ + | Kushal Costa MD | PCP | | + +------+ + Encounter Details +--------+ + + + + | Date | Type | Department | Care Team | Description | +--------+ + + + + | 12/26/ | Hospital | [facility] | See, Medical | Chest pain, | | 2018 | Encounter | [facility] | Record [address] | unspecified type | | | | RADIOLOGY [address] | [address] [place] [address], | | | | | [address] | [place] [address] | | | | | [place] [address] | [phone] | | | | | [phone] | | | +--------+ + + + [...] + + + as of this encounter Medications at Time of Discharge + + +---------+---------+ + + | Medication | Sig. | Disp. | Refills | Start | End Date | | | | | | Date | | + + +---------+---------+ + + | allopurinol | Take 2 tablets by | 60 | 11 | 03/23/20 | | | (ZYLOPRIM) 100 MG | mouth daily. | tablet | | 18 | 9 | | tablet | | | | | | + + +---------+---------+ + + | ascorbic acid | Take 1,000 mg by | | | | | | (VITAMIN C) 500 MG | mouth daily. | | | | | | tablet | | | | | | + + +---------+---------+ + + | aspirin 81 MG | Take 81 mg by mouth | | | | | | chewable tablet | daily with | | | | | | | breakfast. | | | | | + + +---------+---------+ + + | atorvastatin | Take 20 mg by mouth | | | | | | (LIPITOR) 20 MG | nightly. | | | | | | tablet | | | | | | + + +---------+---------+ + + | cholecalciferol | Take 1,000 Units by | | | | | | (VITAMIN D-3) 1000 | mouth daily. | | | | | | units tablet | | | | | | + + +---------+---------+ + + | | Take 1 tablet by | | | | | | HYDROcodone-acetamin | mouth every 6 (six) | | | | | | ophen (NORCO) 5-325 | hours as needed for | | | | | | MG per tablet | Pain. | | | | | + + +---------+---------+ + + | mometasone | Apply topically | | | | | | (ELOCON) 0.1 % cream | daily. | | | | | + + +---------+---------+ + + | PARoxetine (PAXIL) | Take 20 mg by mouth | | | | | | 20 MG tablet | every morning. | | | | | + + +---------+---------+ + + | pramipexole | Take 0.125 mg by | | | | | | (MIRAPEX) 0.125 MG | mouth 2 (two) times | | | | | | tablet | daily as needed. | | | | | + + +---------+---------+ + + | amLODIPine | Take 5 mg by mouth | | | | | | (NORVASC) 5 MG | daily. | | | | 9 | | tablet | | | | | | + + +---------+---------+ + + | losartan (COZAAR) | Take 100 mg by mouth | | | | | | 100 MG tablet | daily. | | | | 9 | + + +---------+---------+ + + | metolazone | Take 1 tablet by | 30 | 11 | 11/23/19 | | | (ZAROXOLYN) 10 MG | mouth daily. | tablet | | 19 | 9 | | tablet | | | | | | + + +---------+---------+ + + | metoprolol | Take 50 mg by mouth | | | | | | (LOPRESSOR) 50 MG | 2 (two) times daily. | | | | 9 | | tablet | | | | | | + + +---------+---------+ + + | potassium chloride | Take 4 tablets by | 240 | 11 | 11/23/19 | | | (K-DUR) 10 MEQ | mouth 2 (two) times | tablet | | 19 | 9 | | tablet | daily with meals. | | | | | + + +---------+---------+ + + | simvastatin | Take 20 mg by mouth | | | | | | (ZOCOR) 20 MG tablet | nightly. | | | | 9 | + + +---------+---------+ + + | terazosin (HYTRIN) | Take 1 capsule by | 30 | 11 | 12/23/19 | | | 1 MG capsule | mouth nightly. | capsule | | 18 | 9 | + + +---------+---------+ + + | torsemide | Take 2 tablets by | 120 | 11 | 11/23/19 | | | (DEMADEX) 20 MG | mouth 2 (two) times | tablet | | 19 | 9 | | tablet | daily. | | | | | + + +---------+---------+ + + as of this encounter Plan [...] | | | | | [place] [address] | | | | | | [phone] | | | | | | | [...] [place] | | | | | | [address] | | | | | | | | +--------+ + + + + | 09/08/ | Office | Cardiology | Sparkle Brady, | | | 2019 | Visit | | [address] | | | | | | Dr [place], | | | | | | [place] [address] | | | | | | [phone] | | | | | | | [...] + + + in this encounter Results X-ray chest 2 view frontal & lateral (12/26/2018 10:56 PM) + + + | Narrative | Performed At | + + + | This is a non-reportable procedure without a radiologist report and | [facility] | | is used for image storage only | [facility]Y | + + + + + + + + | Performing | Address | City/State/Zipcode | Phone Number | | Organization | | | | + + + + + | [facility] | [address] | [place] [address] | | + + + + + in this encounter Visit Diagnoses + + | Diagnosis | + + | Chest pain, unspecified type | + +"
--- OUTSIDE RECORDS SUMMARY | ~2019-03-17 | XMS | Encounter Summary ---
Demographics + + + | Address | [address] | | | [place] [address] | + + + | Home Phone | | + + + | Preferred Language | Unknown | + + + | Marital Status | | + + + | Pentecostalism Affiliation | Unknown | + + + | Race | Unknown | + + + | Ethnic Group | Unknown | + + + Author + + + | Author | [facility] | + + + | Organization | [facility] | + + + | Address | [...] Team Providers + +------+ + | Care Aegis Console Operator Track Name | Role | Phone | [...] | | [address] | [address] [place], [place] | GFR 30-59 ml/min | | | | [place] [address] | [address] | (HCC) (Primary Dx); | | | | [phone] | | Bilateral lower | | | [...] PDTDiscussions/Recommendatio ns: I discussed today with Mr. Josih the meaning of his severe CKD and [...] heart failure (HCC) IZZY (acute kidney injury) ([facility]) Dear Dr Costa: I saw your patient [...] 12 (L) 12/27/2018 LABPROT 286.2 (A) 11/20/2018 [id number] 06/29/2018 Assessment: Mr. Joshi is a [...] | | | | | [place] [address] | | | | | | [phone] | | | | | | | [...] [place] | | | | | | [id number] | | | | | | | | +--------+ + + + + | 09/08/ | Office | Cardiology | Sparkle Brady, | | | 2018 | Visit | | MD Jennifer Elizabeth | | | | | | Dr [address], | | | | | | [place] [address] | | | | | | [phone] | | | | | | | | +--------+ + + + + as of this encounter Visit Diagnoses + + | Diagnosis | + + | CKD (chronic kidney disease) stage 3, GFR 30-59 ml/min ([facility]) - Primary | + + | Chronic [...]
--- OUTSIDE RECORDS SUMMARY | ~2019-03-17 | XMS | Encounter Summary ---
Demographics + + + | Address | [address] | | | [place] [address] | + + + | Home Phone | | + + + | Preferred Language | Unknown | + + + | Marital Status | | + + + | Pentecostalism Affiliation | Unknown | + + + | Race | Unknown | + + + | Ethnic Group | Unknown | + + + Author + + + | Author | [facility] | + + + | Organization | [facility] | + + + | Address | [...] Team Providers + +------+ + | Care Candy Supervisor Name | Role | Phone | + +------+ + | Kushal Costa MD | PCP | | + +------+ + Reason for Visit + + + | Reason | Comments | + + + | Labs Only | 02/11/19 | + + + Encounter Details +--------+ + + + + | Date | Type | Department | Care Team | Description | +--------+ + + + + | 02/12/ | Documentati | [facility] | Jatinder | Denzel Only (02/11/19) | | 2019 | on Only | [place] [address] | [address] | | | | | [address] | | | | | | [place] [address] | | | | | | [phone] | | | +--------+ + + + [...] | | | | | | [place] [address] | | | | | | [phone] | | | | | | | [...] | | | | | [address] [place] | | | | | | [address] | | | | | | | | +--------+ + + + + | 09/08/ | Office | Cardiology | Sparkle Brady, | | | 2018 | Visit | | [address] | | | | | | Dr [address], | | | | | | [place] [address] | | | | | | [phone] | | | | | | | | +--------+ + + + + as of this encounter Visit Diagnoses Not on filein this encounter"
--- OUTSIDE RECORDS SUMMARY | ~2019-03-17 | XMS | Encounter Summary ---
Demographics + + + | Address | [address] | | | [place] [address] | + + + | Home Phone | | + + + | Preferred Language | Unknown | + + + | Marital Status | | + + + | Cheondoism Affiliation | Unknown | + + + | Race | Unknown | + + + | Ethnic Group | Unknown | + + + Author + + + | Author | [facility] | + + + | Organization | [facility] | + + + | Address | [...] Team Providers + +------+ + | Care Major Assembly Inspector Name | Role | Phone | + +------+ + | Kushal Costa MD | PCP | | + +------+ + Reason for Visit + + + | Reason | Comments | + + + | Labs Only | 01/11/19 BNP PSA | + + + Encounter Details +--------+ + + + + | Date | Type | Department | Care Team | Description | +--------+ + + + + | 02/15/ | Documentati | [facility] | Delmis Tobias Only (01/11/19 | | 2019 | on Only | [place] [address] | [address] | BNP PSA) | | | | [address] | | | | | | [place] [address] | | | | | | [phone] | | | +--------+ + + + [...] | 2019 | consult | | MD Jennifer Bull | | | | | | [address] | | | | | | [place] [address] | | | | | | [phone] | | | | | | | [...] [place] | | | | | | [address] | | | | | | | | +--------+ + + + + | 09/08/ | Office | Cardiology | Sparkle Brady, | | | 2019 | Visit | | MD Jennifer Elizabeth | | | | | | Dr [address] | | | | | | [place] [address] | | | | | | [phone] | | | | | | | [...] + + + in this encounter Results Prostate specific Ag (01/11/2019 4:49 PM) + +-------+ + + | Component | Value | Ref Range | Performed At | + +-------+ + + | PROSTATE SPECIFIC AG | 0.259 | 0.0 - 4.0 ng/mL | | + +-------+ + + + + | Specimen | + + | Blood | + + Brain natriuretic peptide (01/11/2019 4:49 PM) + +-------+ + + [...]
--- OUTSIDE RECORDS SUMMARY | ~2019-03-17 | XMS | Encounter Summary ---
Demographics + + + | Address | [address] | | | [place] [address] | + + + | Home Phone | | + + + | Preferred Language | Unknown | + + + | Marital Status | | + + + | Baptist Affiliation | Unknown | + + + | Race | Unknown | + + + | Ethnic Group | Unknown | + + + Author + + + | Author | [facility] | + + + | Organization | [facility] | + + + | Address | [...] Team Providers + +------+ + | Care Hatchery Attendant Name | Role | Phone | + +------+ + | Kushal Costa MD | PCP | | + +------+ + Encounter Details +--------+ + + + + | Date | Type | Department | Care Team | Description | +--------+ + + + + | 12/26/ | Ancillary | [facility] | See, Medical | Chest pain, | | 2019 | Orders | [facility] | Record [address] | unspecified type | | | | [address] | [address] [place] [address] | | | | | [place] [address] | [place] [address] | | | | | [phone] | [phone] | | | | | | | [...] | | | | | [place] [address] | | | | | | [phone] | | | | | | | [...] [place] | | | | | | [address] | | | | | | | | +--------+ + + + + | 09/08/ | Office | Cardiology | Sparkle Brady, | | | 2018 | Visit | | [address] | | | | | | Dr [address], | | | | | | [place] [address] | | | | | | [phone] | | | | | | | [...] + + | [facility] | [address] | [facility] [address] | | + + + + + in this encounter Visit Diagnoses + + | Diagnosis | + + | Chest pain, unspecified type | + +"
--- OUTSIDE RECORDS SUMMARY | ~2019-03-17 | XMS | Encounter Summary ---
Demographics + + + | Address | [address] | | | [place] [address] | + + + | Home Phone | | + + + | Preferred Language | Unknown | + + + | Marital Status | | + + + | Yazdanism Affiliation | Unknown | + + + | Race | Unknown | + + + | Ethnic Group | Unknown | + + + Author + + + | Author | [facility] | + + + | Organization | [facility] | + + + | Address | [...] Team Providers + +------+ + | Care Air Traffic Control Specialist Center Name | Role | Phone | + +------+ + | Kushal Costa MD | PCP | | + +------+ + Encounter Details +--------+ + + + + | Date | Type | Department | Care Team | Description | +--------+ + + + + | 12/26/ | Ancillary | [facility] | See, Medical | Chest pain, | | 2019 | Orders | [facility] | Record [address] | unspecified type | | | | [address] | [address] [place] [address] | | | | | [place] [address] | [place] [address] | | | | | [phone] | [phone] | | | | | | | [...] | | | | | [place] [address] | | | | | | [phone] | | | | | | | [...] [place] | | | | | | [address] | | | | | | | | +--------+ + + + + | 09/08/ | Office | Cardiology | Sparkle Brady, | | | 2018 | Visit | | [address] | | | | | | Dr [address], | | | | | | [place] [address] | | | | | | [phone] | | | | | | | [...] [facility] | [address] | [facility] [address] | | + + + + + in this encounter Visit Diagnoses + + | Diagnosis | + + | Chest pain, unspecified type | + +"
--- OUTSIDE RECORDS SUMMARY | ~2019-03-17 | XMS | Encounter Summary ---
Demographics + + + | Address | [address] | | | [place] [address] | + + + | Home Phone | | + + + | Preferred Language | Unknown | + + + | Marital Status | | + + + | Mandaeism Affiliation | Unknown | + + + | Race | Unknown | + + + | Ethnic Group | Unknown | + + + Author + + + | Author | [facility] | + + + | Organization | [facility] | + + + | Address | [...] Team Providers + +------+ + | Care Hospital Unit Clerk Name | Role | Phone | + [...] + + | 02/16/ | Documentati | [facility] | | Pacemaker Check | | 2019 | on Only | Cardiology [place] | | (in-office) | | | | [address] | | | | | | [address] | | | | | | [place] [address] | | | | | | [phone] | | | +--------+ + + + [...] + as of this encounter Progress Notes Marcus Cook, RN - 02/16/2019 1:00 PM PDTFormatting of this note may be different from catalina frias. PACEMAKER INTERROGATION REPORT Name: Michael Joshi PCP: AMEE COSTA : 1940 Primary cardiology provider: Sparkle Brady Primary electrophysiology provider: None Mode of interrogation: Seen in cardiac device clinic Device: [employer] Battery Longevity: ERT on 11/22/18. RV Pacin% Pacemaker dependent: No Interrogation results Please see the full interrogation report attached Lead function: Lead impedance and threshold value trends have been reviewed and are accepta ble based on most recent evaluation. RV Threshold: 1.6V @ 0.5ms RV Amplitude: 9.0mV Ventricular events: Ventricular high rate episodes: Per rep notes as there are no EGM's: H igh ventricular rate occuring on 01/09/19 from 4581-9200 with maximum heart rate of 170 bpm. Another episode with EGM's occurred on 02/14/19 at 1450 with maximum heart rate of 175 bpm . Additional comments: No EGM's available. According to rep episodes might be Afib with RVR. However, there isn't an atrial lead in place. Programming changes: Temporary programming changes were made for testing and restored to or iginal values. No permanent changes were made. Follow up: The next scheduled interrogation will be on 03/03/[address] Brady. Impression: 1. Normal pacemaker function. 2. Episodes note in Ventricular events section. Testing performed by: Paras Leonard, [employer] Associated attestation - Sparkle Brady MD - 02/25/2019 5:31 PM PDTPatient will be radha eduled for Gen change. in this encounter Plan of Treatment +--------+ + + + + | Date | Type | Specialty | Care Team | Description | +--------+ + + + + | 03/31/ | Initial | Cardiology | Willie Ortiz | | | 2019 | consult | | MD [address] | | | | | | [address] | | | | | | [place] [address] | | | | | | [phone] | | | | | | | [...] [place] | | | | | | [address] | | | | | | | | +--------+ + + + + | 09/08/ | Office | Cardiology | Sparkle Brady, | | | 2019 | Visit | | [address] | | | | | | Dr [address], | | | | | | [place] [address] | | | | | | [phone] | | | | | | | | +--------+ + + + + as of this encounter Visit Diagnoses + + | Diagnosis | + + | Chronic atrial fibrillation (HCC) - Primary | + + | Atrial fibrillation | + + | Cardiac pacemaker in situ | + +"
--- OUTSIDE RECORDS SUMMARY | ~2019-03-17 | XMS | Encounter Summary ---
Demographics + + + | Address | [address] | | | [place] [address] | + + + | Home Phone | | + + + | Preferred Language | Unknown | + + + | Marital Status | | + + + | Christianity Affiliation | Unknown | + + + | Race | Unknown | + + + | Ethnic Group | Unknown | + + + Author + + + | Author | [facility] | + + + | Organization | [facility] | + + + | Address | [...] Team Providers + +------+ + | Care Solution Design And Analysis Manager Name | Role | Phone | [...] | | 2019 | on Only | [place] [address] | [address] | | | | | [address] | | | | | | [place] [address] | | | | | | [phone] | | | +--------+ + + + [...] | | | | | | [place] [address] | | | | | | [phone] | | | | | | | [...] | | | | | [address] [place] | | | | | | [address] | | | | | | | | +--------+ + + + + | 09/08/ | Office | Cardiology | Sparkle Brady, | | | 2018 | Visit | | [address] | | | | | | Dr [place], | | | | | | [place] [address] | | | | | | [phone] | | | | | | | [...]
--- OUTSIDE RECORDS SUMMARY | ~2019-03-17 | XMS | Encounter Summary ---
Demographics + + + | Address | [address] | | | [place] [address] | + + + | Home Phone | | + + + | Preferred Language | Unknown | + + + | Marital Status | | + + + | Jewish Affiliation | Unknown | + + + | Race | Unknown | + + + | Ethnic Group | Unknown | + + + Author + + + | Author | [facility] | + + + | Organization | [facility] | + + + | Address | [...] Team Providers + +------+ + | Care Admission Discharge Rn Name | Role | Phone | + [...] + | 02/16/ | Documentati | [facility] | | Pacemaker Check | | 2019 | on Only | Cardiology Melissa | | (in-office) | | | | [address] | | | | | | [address] | | | | | | [place] [address] | | | | | | [phone] | | | +--------+ + + + [...] interrogation: Seen in cardiac device clinic Device: [employer] Battery Longevity: ERT on 11/22/18. RV Pacin% [...] igh ventricular rate occuring on 01/09/19 from 6306-6637 with maximum heart rate of 170 bpm. [...] events section. Testing performed by: Paras Leonard, [employer] Associated attestation - Sparkle Brady MD - [...] [address] | | | | | | [place] [address] | | | | | | [phone] | | | | | | | [...] [place] | | | | | | [address] | | | | | | | | +--------+ + + + + | 09/08/ | Office | Cardiology | Sparkle Brady, | | | 2019 | Visit | | [address] | | | | | | Dr [address], | | | | | | [place] [address] | | | | | | [phone] | | | | | | | | +--------+ + + + + as of this encounter Visit Diagnoses + + | Diagnosis | + + | Chronic atrial fibrillation (HCC) - Primary | + + | Atrial fibrillation | + + | Cardiac pacemaker in situ | + +"
--- OUTSIDE RECORDS SUMMARY | ~2019-03-17 | XMS | Encounter Summary ---
Demographics + + + | Address | [address] | | | [place] [address] | + + + | Home Phone | | + + + | Preferred Language | Unknown | + + + | Marital Status | | + + + | Yazidism Affiliation | Unknown | + + + | Race | Unknown | + + + | Ethnic Group | Unknown | + + + Author + + + | Author | [facility] | + + + | Organization | [facility] | + + + | Address | [...] Team Providers + +------+ + | Care Board Mixer Tender Name | Role | Phone | [...] | | | | | | | [address] Phone: | | | | | | | [phone] | | | | | | | Fax: | | | | | | | [phone] | +--------+--------+ + + + + Encounter Details +--------+ + + + + | Date | Type | Department | Care Team | Description | +--------+ + + + + | 12/27/ | Hospital | [facility] | Enriqueta Reese, | Hypervolemia, | | 2019 - | Encounter | [facility] | [address] | unspecified | | | | [facility] [place] | [place] [address] | hypervolemia type | | 01/08/ | | [address] | [phone] | (Primary Dx) | | 2019 | | [place] [address] | | | | | | [phone] | Franki Carrizales MD | | | | | | [address] | | | | | | [place] [address] | | | | | | [phone] | | | | | | | | | | | | Shar Dawson, | | | | | | [address] | | | | | | [place] [address] | | | | | | [phone] | | | | | | | | | | | | Nellie Clinton | | | | | | MD [address] | | | | [address] | | | | | | [place] [address] | | | | | | [phone] | | | | | | | [...] may be differ ent from the original. [facility] Service: Hospitalist Physician Discharge Summary Patient ID: [...] discussed with Dr. Gandara, the patient's primary newspaper carrier. He will check his bloo d pressure [...] patient will follow u p outpatient with hydraulic assembler. Wound care instructions have been given. Plan [...] Urrutia MD [address], [address] [place] [address] Schedule an appointment as soon as possible for a visit in 3 days resume care with all providers you were seeing prior to admission Danny Gandara MD [address] [address] Schedule an appointment as soon [...] summary. This entry has been created using [employer] Speech Recognition software and [employer]. The entry has been reviewed and there [...] Abdominal pain Extreme tiredness Date Last Reviewed: 11/20/201619997113-7434 [employer]. [address] [place] [address], [place] [address]. All righ ts reserved. This information is not intended as a substitute for professional medical care. Always follow your healthcare professional's instructions. Outpatient follow-up with podiatry next week For left foot toes: Davie effected area with betadine BID or PRN [...] and treat & OT eval and treat, snf eval and treat wound s Please allow [...] may be differ ent from the original. [facility] Service: Hospitalist Progress Note Hospital Day: LOS: [...] Principal Problem: IZZY (acute kidney injury) ([facility]) Active Problems: CKD (chronic kidney disease) stage 3, GFR 30-59 ml/min ([facility]) Essential hypertension, benign Bilateral lower extremity edema Chronic atrial fibrillation (HCC) Cardiac pacemaker in situ NEETU (obstructive sleep apnea) Pulmonary hypertension (HCC) Right heart failure (HCC) Chronic diastolic heart failure ([facility]) ASSESSMENT & PLAN Shortness of breath. Resolved. [...] PM This entry has been created using [employer] Speech Recognition software and [employer]. The entry has been reviewed and there [...] may be differ ent from the original. [facility] Service: Hospitalist Progress Note Hospital Day: LOS: [...] Principal Problem: IZZY (acute kidney injury) ([facility]) Active Problems: CKD (chronic kidney disease) stage 3, GFR 30-59 ml/min ([facility]) Essential hypertension, benign Bilateral lower extremity edema Chronic atrial fibrillation ([facility]) Cardiac pacemaker in situ NEETU (obstructive sleep apnea) Pulmonary hypertension (HCC) Right heart failure ([facility]) Chronic diastolic heart failure ([facility]) ASSESSMENT & PLAN Shortness of breath. Resolved. [...] AM This entry has been created using [employer] Speech Recognition software and [employer]. The entry has been reviewed and there may still exist sound alike word errors. Dayna Roy, Manager Msw - 01/05/2019 3:46 PM PDTFormatting of this note may b e different from the original. 01/05/19 1459 Subjective Timepoint Admit Pt c/o Pt triggered for screening secondary to LOS 8. Pt presented to [facility] with SOB and ang darcy. [...] pt has followed RD in past at [facility], doesn't cook with salt, uses Mrs. Mitchell [...] Low Follow up date 01/12/19 Dayna Roy, Manager Msw Associated attestation - Jacob Diaz RD - 01/05/2019 3:48 PM VENESSA Gooden Christopher D [facility] - 01/05/2019 3:05 PM PDTRx CHF Medication Counseling Note Patient received medication counseling for the following CHF medications: (ARBs): losartan (COZAAR) Beta Blockers: metoprolol succinate (TOPROL XL) Diuretics: torsemide (DEMADEX) and metolazone (ZAROXOLYN) I had the pleasure to speak with the patient today regarding his medications utilized in [facility] management of diastolic heart failure. We [...] understanding of the material discussed. Pedrito Crane, [facility] 01/05/2019 3:04 Nellie Roberto MD - 01/05/2019 10:33 AM PDTFormatting of this note may be different from the original. [facility] Service: Hospitalist Progress Note Hospital Day: LOS: [...] AM This entry has been created using [employer] Speech Recognition software and [employer]. The entry has been reviewed and there may still exist sound alike word errors. Shar Dawson MD - 01/04/2019 10:10 PM PDTFormatting of this note may be different fro m the original. [facility] Service: Hospitalist Progress Note Pt: Michael Huttonjairon [...] other chronic comorbidities who p resents to [facility] ER from [facility] on 12/27 for acute dyspnea/anginal equivalent. Subsequently: [...] not d/c'd. He is accepted to a [facility] and also he does get unaboots changed [...] hours. No results for input(s): PHART, PO2ART, NGN0HOR, Y5KKLAEC, BEART in the last 168 hours. No [...] and managing patient and counseling/coordination. Dictation software, Geosho, used which may contain error for similar [...] note may be different from the original. [facility] Service: Hospitalist Progress Note Pt: Michael Joshi [...] other chronic comorbidities who p resents to [facility] ER from [facility] on 12/27 for acute dyspnea/anginal equivalent. SUBJECTIVE: [...] hours. No results for input(s): PHART, PO2ART, ARR4CJH, C4NIRNEY, BEART in the last 168 hours. No [...] and managing patient and counseling/coordination. Dictation software, Geosho, used which may contain error for similar sounding words even af ter review. Personal communication requested for any clarification. Portions of this chart may have been copied from previous notes for continuity of care purp Shar Gordon MD - 01/02/2019 9:58 AM PDTFormatting of this note may be different fro m the original. [facility] Service: Hospitalist Progress Note Pt: Michael Joshi AGE/SEX: 78 y.o. male ROOM: [facility] : 1940 PCP: AMEE URRUTIA ADMIT DATE: [...] other chronic comorbidities who p resents to [facility] ER from [facility] on 12/27 for acute dyspnea/anginal equivalent. SUBJECTIVE: [...] hours. No results for input(s): PHART, PO2ART, XXI1WDG, O1XLNYWZ, BEART in the last 168 hours. No [...] and managing patient and counseling/coordination. Dictation software, Geosho, used which may contain error for similar sounding words even af ter review. Personal communication requested for any clarification. Portions of this chart may have been copied from previous notes for continuity of care purp Shar Gordon MD - 01/01/2019 9:41 AM PDTFormatting of this note may be different fro m the original. [facility] Service: Hospitalist Progress Note Pt: Michael Joshi AGE/SEX: 78 y.o. male ROOM: [facility]/7114-1 : 1940 PCP: AMEE URRUTIA ADMIT DATE: [...] other chronic comorbidities who p resents to [facility] ER from [facility] on 12/27 for acute dyspnea/anginal equivalent. SUBJECTIVE: [...] hours. No results for input(s): PHART, PO2ART, TEY7GIS, Y5NBWMOP, BEART in the last 168 hours. No [...] disease) stage 3, GFR 30-59 ml/min ([facility]) Essential hypertension, benign Bilateral lower extremity edema Chronic atrial fibrillation (HCC) Cardiac pacemaker in situ Pulmonary hypertension (HCC) Right heart failure ([facility]) Chronic systolic heart failure ([facility]) ASSESSMENT & PLAN 1. Acute respiratory distress [...] and managing patient and counseling/coordination. Dictation software, Geosho, used which may contain error for similar sounding words even af ter review. Personal communication requested for any clarification. Portions of this chart may have been copied from previous notes for continuity of care purp Shar Gordon MD - 12/31/2018 7:59 PM PDTFormatting of this note may be different fro m the original. [facility] Service: Hospitalist Progress Note Pt: Michael Huttonjairon [...] other chronic comorbidities who p resents to [facility] ER from [facility] on 12/27 for acute dyspnea/anginal equivalent. SUBJECTIVE: [...] hours. No results for input(s): PHART, PO2ART, TKP7ZSS, Y1RRBGMT, BEART in the last 168 hours. No results for input(s): APTT, INR, PTT in the last 168 hours. Recent Labs Lab 12/27/18 0517 TSH 1.500 Recent Labs Lab 12/27/18 0751 12/27/18 0517 TROPONINI 0.046* 0.048* Results No results found for the last 72 hours. RADIOLOGY: Al Myocardial Perfusion Spect (stress And Rest) Result [...] and managing patient and counseling/coordination. Dictation software, Geosho, used which may contain error for similar sounding words even af ter review. Personal communication requested for any clarification. Portions of this chart may have been copied from previous notes for continuity of care purp Shar Gordon MD - 12/30/2018 9:28 AM PDTFormatting of this note may be different fro m the original. [facility] Service: Hospitalist Progress Note Pt: Michael Joshi [...] other chronic comorbidities who p resents to [facility] ER from [facility] on 12/27 for acute dyspnea/anginal equivalent. SUBJECTIVE: [...] hours. No results for input(s): PHART, PO2ART, EDA8UVM, E4APMJFD, BEART in the last 168 hours. No [...] and managing patient and counseling/coordination. Dictation software, Geosho, used which may contain error for similar sounding words even af ter review. Personal communication requested for any clarification. Portions of this chart may have been copied from previous notes for continuity of care purp Shar Gordon MD - 12/29/2018 4:15 PM PDTFormatting of this note may be different fro m the original. [facility] Service: Hospitalist Progress Note Pt: Michael Joshi AGE/SEX: 78 y.o. male ROOM: [facility]/7114- : 1940 PCP: AMEE URRUTIA ADMIT DATE: [...] other chronic comorbidities who p resents to [facility] ER from [facility] on 12/27 for acute dyspnea/anginal equivalent. SUBJECTIVE: [...] hours. No results for input(s): PHART, PO2ART, JDW3SNJ, I2OHRMDV, BEART in the last 168 hours. No [...] and managing patient and counseling/coordination. Dictation software, Geosho, used which may contain error for similar sounding words even af ter review. Personal communication requested for any clarification. Portions of this chart may have been copied from previous notes for continuity of care purp Rhonda Mendiola, SAMPLE SHOE INSPECTOR AND REWORKER - 12/29/2018 1:01 AM PDTPer RN's request, [...] refused to wear CPAP. RN updated. Franki Carrizlaes MD - 12/28/2018 9:45 AM [facility] Service: Hospitalist Progress Note Hospital Day: LOS: [...] other chronic comorbidities who p resents to [facility] ER from [facility] on 12/27 for acute dyspnea/anginal equivalent. SUBJECTIVE [...] | | | | | [place] [address] | | | | | | [phone] | | | | | | | | +--------+ + + + + | 03/31/ | Documentati | Cardiology | | | | 2019 | on Only | | | | +--------+ + + + + | 04/19/ | Office | Nephrology | Danny Gandraa MD | | | 2019 | Visit | | [address] | | | | | | [address] [place] | | | | | | [address] | | | | | | | | +--------+ + + + + | 09/08/ | Office | Cardiology | Sparkle Brady, | | | 2018 | Visit | | MD Jennifer Elizabeth | | | | | | Dr [place], | | | | | | [place] [address] | | | | | | [phone] | | | | | | | [...] (L) | 3.3 - 4.8 g/dL | [facility] | | | | | LABORATORY | [...] the | | | | | MDRD [facility] traceable | | | | | equation.Testing | | | | | performed at [facility], [address] | | | | | [facility], | | | | | [place] [address] | | | + + + + + + + | Specimen | + + | Blood | + + + + + + + | Performing | Address | City/State/Zipcode | Phone Number | | Organization | | | | + + + + + | [facility] | [address] | [place] [address] | [phone] | | LABORATORY | [address]vd[address] | | [...] (H) | 0.70 - 1.30 mg/dL | [facility] | | | | | LABORATORY | [...] (L)Comment: GFR <60: | >60 mL/min/1.73m2 | [facility] | | | CHRONIC KIDNEY DISEASE, [...] the | | | | | MDRD IDCT traceable | | | | | equation.Testing | | | | | performed at [facility], [address] | | | | | [facility], | | | | | [place] [address] | | | + + + + + + + | Specimen | + + | Blood | + + + + + + + | Performing | Address | City/State/Zipcode | Phone Number | | Organization | | | | + + + + + | [facility] | [address] | [place] [address] | [phone] | | LABORATORY | [address]vd. | | [...] 9.5 | 8.5 - 10.5 mg/dL | [facility] | | | | | LABORATORY | + + + + + | Albumin | 2.9 (L) | 3.3 - 4.8 g/dL | [facility] | | | | | LABORATORY | + + + + + | PHOSPHORUS | 3.5 | 2.3 - 4.8 mg/dL | [facility] | | | | | LABORATORY | + + + + + | EGFR | 21 (L)Comment: GFR <60: | >60 mL/min/1.73m2 | [facility] | | | CHRONIC KIDNEY DISEASE, [...] | | | | | performed at [facility], [address] | | | | | [facility], | | | | | [place] [address] | | | + + + + + + + | Specimen | + + | Blood | + + + + + + + | Performing | Address | City/State/Zipcode | Phone Number | | Organization | | | | + + + + + | [facility] | [address] | [place] [address] | [phone] | | LABORATORY | [address] | | [...] 9.7 | 8.5 - 10.5 mg/dL | [facility] | | | | | LABORATORY | + + + + + | Albumin | 2.9 (L) | 3.3 - 4.8 g/dL | [facility] | | | | | LABORATORY | + + + + + | PHOSPHORUS | 4.0 | 2.3 - 4.8 mg/dL | [facility] | | | | | LABORATORY | + + + + + | EGFR | 22 (L)Comment: GFR <60: | >60 mL/min/1.73m2 | [facility] | | | CHRONIC KIDNEY DISEASE, [...] | | | | | performed at [facility], [address] | | | | | [facility], | | | | | [place] [address] | | | + + + + + + + + + + | Performing | Address | City/State/Zipcode | Phone Number | | Organization | | | | + + + + + | [facility] | [address] | [place] [address] | [phone] | | LABORATORY | [address]. | | | + + + + + Magnesium (01/05/2019 6:12 AM) + + + + + | Component | Value | Ref Range | Performed At | + + + + + | MAGNESIUM | 2.1Comment: Testing | 1.7 - 2.4 mg/dL | [facility] | | | performed at [facility], [facility] [address] | | LABORATORY | | | [facility], | | | | | [place] [address] | | | + + + + + + + | Specimen | + + | Blood | + + + + + + + | Performing | Address | City/State/Zipcode | Phone Number | | Organization | | | | + + + + + | [facility] | [address] [place] [address] | [place] [address] | [phone] | | LABORATORY | Blvd. | | [...] | [facility] | | | performed at [facility], [address] | | LABORATORY | | | [address], | | | | | [place] [address] | | | + + + + + + + | Specimen | + + | Blood | + + + + + + + | Performing | Address | City/State/Zipcode | Phone Number | | Organization | | | | + + + + + | [facility] | [address] | [place] [address] | [phone] | | LABORATORY | [address]vd. | | [...] 3.1 | 2.3 - 4.8 mg/dL | [facility] [...] | | | | | performed at [facility], [address] | | | | | [facility], | | | | | [place] [address] | | | + + + + + + + + + + | Performing | Address | City/State/Zipcode | Phone Number | | Organization | | | | + + + + + | [facility] | [address] [place] [address] | [place] [address] | [phone] | | LABORATORY | [address] | | | + + + + + Magnesium (01/04/2019 5:49 AM) + + + + + | Component | Value | Ref Range | Performed At | + + + + + | MAGNESIUM | 2.1Comment: Testing | 1.7 - 2.4 mg/dL | [facility] | | | performed at [facility], [address] | | LABORATORY | | | [address] [facility] [address], | | | | | [place] [address] | | | + + + + + + + | Specimen | + + | Blood | + + + + + + + | Performing | Address | City/State/Zipcode | Phone Number | | Organization | | | | + + + + + | [facility] | [address] | [place] [address] | [phone] | | LABORATORY | [address]. | | [...] | [facility] | | | performed at [facility], [address] | | LABORATORY | | | [address], | | | | | [place] [address] | | | + + + + + + + | Specimen | + + | Blood | + + + + + + + | Performing | Address | City/State/Zipcode | Phone Number | | Organization | | | | + + + + + | [facility] | [address] | [place] [address] | [phone] | | LABORATORY | [address] | | [...] (H) | 0.70 - 1.30 mg/dL | [facility] | | | | | LABORATORY | [...] 3.2 | 2.3 - 4.8 mg/dL | [facility] | | | | | LABORATORY | [...] the | | | | | MDRD IDCT traceable | | | | | equation.Testing | | | | | performed at [facility], [address] | | | | | [facility], | | | | | [place] [address] | | | + + + + + + + + + + | Performing | Address | City/State/Zipcode | Phone Number | | Organization | | | | + + + + + | [facility] | [address] [place] [address] | [place] [address] | [phone] | | LABORATORY | [address]vd[address] | | | + + + + + Magnesium (01/03/2019 5:44 AM) + + + + + | Component | Value | Ref Range | Performed At | + + + + + | MAGNESIUM | 2.3Comment: Testing | 1.7 - 2.4 mg/dL | [facility] | | | performed at [facility], [address] | | LABORATORY | | | [facility], | | | | | [place] [address] | | | + + + + + + + | Specimen | + + | Blood | + + + + + + + | Performing | Address | City/State/Zipcode | Phone Number | | Organization | | | | + + + + + | [facility] | [address] | [place] [address] | [phone] | | LABORATORY | [address]vd. | | [...] | [facility] | | | performed at [facility], [address] | | LABORATORY | | | [address], | | | | | [place] [address] | | | + + + + + + + | Specimen | + + | Blood | + + + + + + + | Performing | Address | City/State/Zipcode | Phone Number | | Organization | | | | + + + + + | [facility] | [address] | [place] [address] | [phone] | | LABORATORY | [address]vd. | | | + + + + + Renal function panel (01/02/2019 5:52 AM) + + + + + | Component | Value | Ref Range | Performed At | + + + + + | SODIUM | 139 | 135 - 145 mmol/L | [facility] | | | | | LABORATORY | + + + + + | POTASSIUM | 3.5 | 3.5 - 4.9 mmol/L | [facility] | | | | | LABORATORY | [...] (H) | 0.70 - 1.30 mg/dL | [facility] | | | | | LABORATORY | + + + + + | CALCIUM | 9.4 | 8.5 - 10.5 mg/dL | [facility] | | | | | LABORATORY | + + + + + | Albumin | 2.7 (L) | 3.3 - 4.8 g/dL | [facility] | | | | | LABORATORY | + + + + + | PHOSPHORUS | 4.2 | 2.3 - 4.8 mg/dL | [facility] | | | | | LABORATORY | + + + + + | EGFR | 21 (L)Comment: GFR <60: | >60 mL/min/1.73m2 | [facility] | | | CHRONIC KIDNEY DISEASE, [...] | | | | | performed at [facility], [address] | | | | | [facility], | | | | | [place] [address] | | | + + + + + + + + + + | Performing | Address | City/State/Zipcode | Phone Number | | Organization | | | | + + + + + | [facility] | [address] [place] [address] | [place] [address] | [phone] | | LABORATORY | [address]. | | | + + + + + Magnesium (01/02/2019 5:52 AM) + + + + + | Component | Value | Ref Range | Performed At | + + + + + | MAGNESIUM | 2.3Comment: Testing | 1.7 - 2.4 mg/dL | [facility] | | | performed at [facility], [address] | | LABORATORY | | | [facility], | | | | | [place] [address] | | | + + + + + + + | Specimen | + + | Blood | + + + + + + + | Performing | Address | City/State/Zipcode | Phone Number | | Organization | | | | + + + + + | [facility] | [address] | [place] [address] | [phone] | | LABORATORY | Blvd. | | [...] | [facility] | | | performed at [facility], [address] | | LABORATORY | | | [facility] [address], | | | | | [place] [address] | | | + + + + + + + | Specimen | + + | Blood | + + + + + + + | Performing | Address | City/State/Zipcode | Phone Number | | Organization | | | | + + + + + | [facility] | [address] [place] [address] | [place] [address] | [phone] | | LABORATORY | [address] | | [...] 9.2 | 8.5 - 10.5 mg/dL | [facility] | | | | | LABORATORY | + + + + + | Albumin | 2.9 (L) | 3.3 - 4.8 g/dL | [facility] | | | | | LABORATORY | + + + + + | PHOSPHORUS | 4.0 | 2.3 - 4.8 mg/dL | [facility] | | | | | LABORATORY | + + + + + | EGFR | 18 (L)Comment: GFR <60: | >60 mL/min/1.73m2 | [facility] | | | CHRONIC KIDNEY DISEASE, [...] | | | | | performed at [facility], [address] | | | | | [facility], | | | | | [place] [address] | | | + + + + + + + | Specimen | + + | Blood | + + + + + + + | Performing | Address | City/State/Zipcode | Phone Number | | Organization | | | | + + + + + | [facility] | [address] | [place] [address] | [phone] | | LABORATORY | [address]. | | | + + + + + Magnesium (01/01/2019 5:42 AM) + + + + + | Component | Value | Ref Range | Performed At | + + + + + | MAGNESIUM | 2.3Comment: Testing | 1.7 - 2.4 mg/dL | [facility] | | | performed at [facility], [address] | | LABORATORY | | | [address], | | | | | [place] [address] | | | + + + + + + + | Specimen | + + | Blood | + + + + + + + | Performing | Address | City/State/Zipcode | Phone Number | | Organization | | | | + + + + + | [facility] | [address] | [place] [address] | [phone] | | LABORATORY | Blvd. | | [...] | [facility] | | | performed at [facility], [address] | | LABORATORY | | | [address], | | | | | [place] [address] | | | + + + + + + + | Specimen | + + | Blood | + + + + + + + | Performing | Address | City/State/Zipcode | Phone Number | | Organization | | | | + + + + + | [facility] | [address] | [place] [address] | [phone] | | LABORATORY | Blvd. | | | + + + + + PROCALCITONIN (12/31/2018 5:21 AM) + + + + + | Component | Value | Ref Range | Performed At | + + + + + | PROCALCITONIN | 0.16Comment: | <0.5 ng/mL | [facility] | | | INTERPRETIVE [...] performed | | | | | at [facility] [place];[address] | | | | | [place] [address] | | | + + + + + + + + + + | Performing | Address | City/State/Zipcode | Phone Number | | Organization | | | | + + + + + | [facility] | [address] | [place] [address] | | + + + + + [...] (L) | 3.3 - 4.8 g/dL | [facility] | | | | | LABORATORY | + + + + + | PHOSPHORUS | 4.6 | 2.3 - 4.8 mg/dL | [facility] | | | | | LABORATORY | + + + + + | EGFR | 20 (L)Comment: GFR <60: | >60 mL/min/1.73m2 | [facility] | | | CHRONIC KIDNEY DISEASE, [...] | | | | | performed at [facility], [address] | | | | | [facility], | | | | | [place] [address] | | | + + + + + + + + + + | Performing | Address | City/State/Zipcode | Phone Number | | Organization | | | | + + + + + | [facility] | [address] | [place] [address] | [phone] | | LABORATORY | Blvd. | | | + + + + + Magnesium (12/31/2018 5:21 AM) + + + + + | Component | Value | Ref Range | Performed At | + + + + + | MAGNESIUM | 2.5 (H)Comment: Testing | 1.7 - 2.4 mg/dL | [facility] | | | performed at [facility], [address] | | LABORATORY | | | [facility], | | | | | [place] [address] | | | + + + + + + + | Specimen | + + | Blood | + + + + + + + | Performing | Address | City/State/Zipcode | Phone Number | | Organization | | | | + + + + + | [facility] | [address] [place] [address] | [place] [address] | [phone] | | LABORATORY | Blvd. | | [...] | [facility] | | | performed at [facility], [address] | | LABORATORY | | | [address], | | | | | [place] [address] | | | + + + + + + + | Specimen | + + | Blood | + + + + + + + | Performing | Address | City/State/Zipcode | Phone Number | | Organization | | | | + + + + + | [facility] | [address] | [place] [address] | [phone] | | LABORATORY | Blvd. | | [...] | + + + + + | [facility] | [address] | [place] [address] | | + + + + + [...] 8.9 | 8.5 - 10.5 mg/dL | [facility] | | | | | LABORATORY | + + + + + | Albumin | 3.0 (L) | 3.3 - 4.8 g/dL | [facility] | | | | | LABORATORY | + + + + + | PHOSPHORUS | 3.8 | 2.3 - 4.8 mg/dL | [facility] [...] | | | | | performed at [facility], [address] | | | | | [facility], | | | | | [place] [address] | | | + + + + + + + + + + | Performing | Address | City/State/Zipcode | Phone Number | | Organization | | | | + + + + + | [facility] | [address] [place] [address] | [place] [address] | [phone] | | LABORATORY | Blvd. | | | + + + + + Magnesium (12/30/2018 5:28 AM) + + + + + | Component | Value | Ref Range | Performed At | + + + + + | MAGNESIUM | 1.9Comment: Testing | 1.7 - 2.4 mg/dL | [facility] | | | performed at [facility], [address] | | LABORATORY | | | [facility], | | | | | [place] [address] | | | + + + + + + + | Specimen | + + | Blood | + + + + + + + | Performing | Address | City/State/Zipcode | Phone Number | | Organization | | | | + + + + + | [facility] | [address] | [place] [address] | [phone] | | LABORATORY | Blvd. | | [...] | [facility] | | | performed at [facility], [address] | | LABORATORY | | | [address], | | | | | [place] [address] | | | + + + + + + + | Specimen | + + | Blood | + + + + + + + | Performing | Address | City/State/Zipcode | Phone Number | | Organization | | | | + + + + + | [facility] | [address] | [place] [address] | [phone] | | LABORATORY | Blvd. | | | + + + + + Magnesium (12/29/2018 5:55 AM) + + + + + | Component | Value | Ref Range | Performed At | + + + + + | MAGNESIUM | 1.9Comment: Testing | 1.7 - 2.4 mg/dL | [facility] | | | performed at [facility], [address] | | LABORATORY | | | [facility], | | | | | [place] [address] | | | + + + + + + + | Specimen | + + | Blood | + + + + + + + | Performing | Address | City/State/Zipcode | Phone Number | | Organization | | | | + + + + + | [facility] | [address] | [place] [address] | [phone] | | LABORATORY | Blvd. | | [...] the | | | | | MDRD IDCT traceable | | | | | equation.Testing | | | | | performed at [facility], [address] | | | | | [facility], | | | | | [place] [address] | | | + + + + + + + | Specimen | + + | Blood | + + + + + + + | Performing | Address | City/State/Zipcode | Phone Number | | Organization | | | | + + + + + | [facility] | [address] | [place] [address] | [phone] | | LABORATORY | Blvd. | | [...] | [facility] | | | performed at [facility], [address] | | LABORATORY | | | [address], | | | | | [place] [address] | | | + + + + + + + | Specimen | + + | Blood | + + + + + + + | Performing | Address | City/State/Zipcode | Phone Number | | Organization | | | | + + + + + | [facility] | [address] | [place] [address] | [phone] | | LABORATORY | Blvd. | | [...] + + | Feliz, Rad Results In 12/28/2018 1:59 PM PDT REST/STRESS MYOCARDIAL PERFUSION [...] | + + + + + | [facility] | [address] | [place] [address] | | + + + + + NM cardiovascular stress treadmill (12/28/2018 12:54 PM) + + + + + | Component | Value | Ref Range | Performed At | + + + + + | Diagnosis | Non diagnostic | | [facility] | | | pharmacological [...] | + + + + + | [facility] | [address] | [place] [address] | | + + + + + Magnesium (12/28/2018 5:18 AM) + + + + + | Component | Value | Ref Range | Performed At | + + + + + | MAGNESIUM | 1.7Comment: Testing | 1.7 - 2.4 mg/dL | [facility] | | | performed at [facility], [address] | | LABORATORY | | | [address], | | | | | [place] [address] | | | + + + + + + + | Specimen | + + | Blood | + + + + + + + | Performing | Address | City/State/Zipcode | Phone Number | | Organization | | | | + + + + + | [facility] | [address] | [place] [address] | [phone] | | LABORATORY | Blvd. | | [...] (H) | 0.70 - 1.30 mg/dL | [facility] | | | | | LABORATORY | [...] (L)Comment: GFR <60: | >60 mL/min/1.73m2 | [facility] | | | CHRONIC KIDNEY DISEASE, | [...] the | | | | | MDRD IDCT traceable | | | | | equation.Testing | | | | | performed at [facility], [address] | | | | | [facility], | | | | | [place] [address] | | | + + + + + + + | Specimen | + + | Blood | + + + + + + + | Performing | Address | City/State/Zipcode | Phone Number | | Organization | | | | + + + + + | [facility] | [address] | [place] [address] | [phone] | | LABORATORY | Blvd. | | [...] | [facility] | | | performed at [facility], [address] | | LABORATORY | | | [address], | | | | | [place] [address] | | | + + + + + + + | Specimen | + + | Blood | + + + + + + + | Performing | Address | City/State/Zipcode | Phone Number | | Organization | | | | + + + + + | [facility] | [address] | [place] [address] | [phone] | | LABORATORY | Blvd. | | | + + + + + Reticulocyte count (12/27/2018 4:43 PM) + + + + + | Component | Value | Ref Range | Performed At | + + + + + | RETICULOCYTES | 1.4Comment: Testing | 0.4 - 2.7 % | [facility] | | | performed at [facility] [place] [place];[address] | | | | | [address];[place] | | | | | [address] | | | + + + + + + + + + + | Performing | Address | City/State/Zipcode | Phone Number | | Organization | | | | + + + + + | [facility] | [address] | [place] [address] | | + + + + + [...] Michael Joshi Date of : 1940 | [facility] | | Performing Physician: Pedrito | RADIOLOGY | | Ca GARZA | | | | | | ------REPORT ADDENDED------ INDICATIONS acute FL | | | CONCLUSIONS 1. This was [...] | | calcified. Aortic Valve: There is nvvq-nz-dewpahct aortic | | | regurgitation. Mitral Valve: [...] | | mmHg TR Vmax: 3.49 m/s Ton Container Shipper: ROSY Authenticated by: | | | Pedrito Taylor MD Report Date/Time: 12-27-2018 13:58:10 | | + + + + + | Procedure Note | + + | Feliz, Rad Results In - 12/27/2018 1:58 PM PDT Patient Name: Kel Joshi of | | : 1940Accession: [id number] Physician: Pedrito Taylor | | MD ------REPORT [...] is mildly calcified. Aortic Valve: There is ttnw-vl-xzhtosym aortic | | regurgitation.Mitral Valve: Mild mitral [...] mlLAESV Index (A-L): 109.85 ml/m2LAAs A2C: 64.13 li1LAPTT A-L A2C: 351.26 | | mlLALs A2C: 9.93 cmLAAs A4C: 45.52 df5NHOXD A-L A4C: 173.98 mlLALs A4C: 10.11 | | cmTAPSE: 1.10 cmHR: 80.22 BPMAV maxP.70 mmHgAV meanP.31 mmHgAV Vmax: | | 1.55 m/Davie Vmean: 1.10 m/Davie VTI: 33.13 cmAVA Vmax: 2.73 cm2AVA (VTI): 2.82 | | am1VQIO Vmax: 0.00 cm2/m2AVAI (VTI): 0.00 cm2/m2LVCI Dopp: 2.84 l/gfmu1HBTL Dopp: | | 6.45 l/minHR: 68.91 BPMLVOT [...] |TR Vmax: 3.49 m/s | | | |Ton Container Shipper: MW | |Authenticated by: Pedrito Taylor MD [...] | + + + + + | [facility] | [address] | [place] [address] | | + + + + + Troponin I (12/27/2018 7:51 AM) + + + + + | Component | Value | Ref Range | Performed At | + + + + + | TROPONIN I | 0.046 (H)Comment: 0.04 | 0.00 - 0.04 ng/mL | [facility] | | | ng/mL [...] performed | | | | | at [facility] [place];[address] | | | | | [place] [address] | | | + + + + + + + | Specimen | + + | Blood | + + + + + + + | Performing | Address | City/State/Zipcode | Phone Number | | Organization | | | | + + + + + | [facility] | [address] | [place] [address] | | + + + + + Brain natriuretic peptide (12/27/2018 5:31 AM) + + + + + | Component | Value | Ref Range | Performed At | + + + + + | BRAIN NATRIURETIC | 471.32 (H)Comment: | 0 - 100 pg/mL | [facility] | | PEPTIDE | Testing performed at | | | | | [facility] [place];[address] [facility] [facility] | | | | | Blvd;[place] [address] | | | + + + + + + + | Specimen | + + | Blood | + + + + + + + | Performing | Address | City/State/Zipcode | Phone Number | | Organization | | | | + + + + + | [facility] | [address] | [place] [address] | | + + + + + [...] | [facility] | | | performed at [facility], [address] | | LABORATORY | | | [address], | | | | | [place] [address] | | | + + + + + + + | Specimen | + + | Blood | + + + + + + + | Performing | Address | City/State/Zipcode | Phone Number | | Organization | | | | + + + + + | [facility] | [address] | [place] [address] | [phone] | | LABORATORY | Blvd[address] | | | + + + + + Ferritin (12/27/2018 5:17 AM) + + + + + | Component | Value | Ref Range | Performed At | + + + + + | FERRITIN | 33Comment: Testing | 11 - 450 ng/mL | [facility] | | | performed at [facility], [address] | | LABORATORY | | | [address], | | | | | [place] [address] | | | + + + + + + + | Specimen | + + | Blood | + + + + + + + | Performing | Address | City/State/Zipcode | Phone Number | | Organization | | | | + + + + + | [facility] | [address] | [place] [address] | [phone] | | LABORATORY | Blvd[address] | | | + + + + + Troponin I (12/27/2018 5:17 AM) + + + + + | Component | Value | Ref Range | Performed At | + + + + + | TROPONIN I | 0.048 (H)Comment: 0.04 | 0.00 - 0.04 ng/mL | [facility] | | | ng/mL [...] performed | | | | | at [facility] [place];[address] | | | | | [place] [address] | | | + + + + + + + | Specimen | + + | Blood | + + + + + + + | Performing | Address | City/State/Zipcode | Phone Number | | Organization | | | | + + + + + | [facility] | [address] | [place] [address] | | + + + + + [...] | | | | | performed at [facility], [address] | | | | | [address], | | | | | [place] [address] | | | + + + + + + + | Specimen | + + | Blood | + + + + + + + | Performing | Address | City/State/Zipcode | Phone Number | | Organization | | | | + + + + + | [facility] | [address] | [place] [address] | [phone] | | LABORATORY | [address]. | | | + + + + + TSH (12/27/2018 5:17 AM) + + + + + | Component | Value | Ref Range | Performed At | + + + + + | TSH | 1.500Comment: Testing | 0.450 - 5.100 uIU/mL | [facility] | | | performed at [facility], [address] | | LABORATORY | | | [address], | | | | | [place] [address] | | | + + + + + + + | Specimen | + + | Blood | + + + + + + + | Performing | Address | City/State/Zipcode | Phone Number | | Organization | | | | + + + + + | [facility] | [address] | [place] [address] | [phone] | | LABORATORY | Blvd[address] | | | + + + + + Lipid panel (12/27/2018 5:17 AM) + + + + + | Component | Value | Ref Range | Performed At | + + + + + | CHOLESTEROL | 108 | <200 mg/dL | [facility] | | | | | LABORATORY | [...] | [facility] | | | performed at [facility], [address] | | LABORATORY | | | [address] [place], | | | | | [place] [address] | | | + + + + + + + | Specimen | + + | Blood | + + + + + + + | Performing | Address | City/State/Zipcode | Phone Number | | Organization | | | | + + + + + | [facility] | [address] | [place] [address] | [phone] | | LABORATORY | Blvd. | | [...] the | | | | | MDRD IDCT traceable | | | | | equation.Testing | | | | | performed at [facility], [address] | | | | | [facility], | | | | | [place] [address] | | | + + + + + + + | Specimen | + + | Blood | + + + + + + + | Performing | Address | City/State/Zipcode | Phone Number | | Organization | | | | + + + + + | [facility] | [address] | [place] [address] | [phone] | | LABORATORY | Blvd[address] | | | + + + + + Phosphorus (12/27/2018 5:17 AM) + + + + + | Component | Value | Ref Range | Performed At | + + + + + | PHOSPHORUS | 3.2Comment: Testing | 2.3 - 4.8 mg/dL | [facility] | | | performed at [facility], [address] | | LABORATORY | | | [facility], | | | | | [place] [address] | | | + + + + + + + | Specimen | + + | Blood | + + + + + + + | Performing | Address | City/State/Zipcode | Phone Number | | Organization | | | | + + + + + | [facility] | [address] | [place] [address] | [phone] | | LABORATORY | [place]. | | | + + + + + Magnesium (12/27/2018 5:17 AM) + + + + + | Component | Value | Ref Range | Performed At | + + + + + | MAGNESIUM | 2.0Comment: Testing | 1.7 - 2.4 mg/dL | [facility] | | | performed at [facility], [address] | | LABORATORY | | | [address], | | | | | [place] [address] | | | + + + + + + + | Specimen | + + | Blood | + + + + + + + | Performing | Address | City/State/Zipcode | Phone Number | | Organization | | | | + + + + + | [facility] | [address] | [place] [address] | [phone] | | LABORATORY | Blvd. | | [...] | [facility] | | | performed at [facility], [address] | | LABORATORY | | | [address], | | | | | [place] [address] | | | + + + + + + + | Specimen | + + | Blood | + + + + + + + | Performing | Address | City/State/Zipcode | Phone Number | | Organization | | | | + + + + + | [facility] | [address] | [place] [address] | [phone] | | LABORATORY | Blvd. | | [...] + + + + | Calculated R [place] | 10 | degrees | [facility] | + + + + + | Calculated T [place] | 0 | degrees | [facility] [...] | + + + + + | [facility] | [address] | [place] [address] | | + + + + + [...] | | | day), First dose on Fri12/28/18 | | | | | | | [...] PDT | | | | | Immunization, Joy 12/27/18 at | | | | | [...] | | | | | SBP>160, Starting Joy 12/27/18 at | | | | | | | 0403 | | | | | | + +-------+ +-------+---+---+ +---+---+ | | | +---+---+ + +-------+ +--------+---+---+ | mariaelena RUELAS) tablet 100 mg | Given | | [...] | | | Daily, First dose on 01/04/19 | | PDT | | | | [...] PRN, Nausea, Vomiting, | | | Starting 3/10/19 at 0401 | | + +---+ | [...] 09:36 | | | | | Once, [facility] 01/07/19 at 0730, For 1 | | PDT | | | | | dose | | | | | | + +-------+ +--------+---+---+ +---+---+ | | | +---+---+ + +-------+ +--------+---+---+ | potassium chloride (K-DUR) CR | Given | | 20 mEq | | | | tablet 20 mEq 20 mEq, Oral, | | 9 12:10 | | | | | Once, [facility] 01/07/19 at 1230, For 1 | | PDT | | | | | dose | | | | | | + +-------+ +--------+---+---+ +---+---+ | | | +---+---+ + +-------+ +--------+---+---+ | potassium chloride (K-DUR) CR | Given | | 30 mEq | | | | tablet 30 mEq 30 mEq, Oral, | | 9 12:00 | | | | | Once, 01/04/19 at 1200, For 1 | | [...] 12:15 | | | | | Once, [facility] 12/31/18 at 1230, For 1 | | [...] | | | | | Continuous, Starting Fri01/01/19 | | PDT | | | [...] | | | | Elizabeth 12/31/18 at 0600 | | | | [...]
--- OUTSIDE RECORDS SUMMARY | ~2019-03-17 | XMS | Encounter Summary ---
Demographics + + + | Address | [address] | | | [place] [address] | + + + | Home Phone | | + + + | Preferred Language | Unknown | + + + | Marital Status | | + + + | Baptist Affiliation | Unknown | + + + | Race | Unknown | + + + | Ethnic Group | Unknown | + + + Author + + + | Author | [facility] | + + + | Organization | [facility] | + + + | Address | [...] Team Providers + +------+ + | Care Director Phone Name | Role | Phone | + +------+ + | Kushal Costa MD | PCP | | + +------+ + Encounter Details +--------+ + + + + | Date | Type | Department | Care Team | Description | +--------+ + + + + | 03/12/ | Telephone | [facility] | [place], | | | 2019 | | [address] | [address] | | | | | [address] | | | | | | [place] [address] | | | | | | [phone] | | | +--------+ + + + [...] | | | | | [place] [address] | | | | | | [phone] | | | | | | | | +--------+ + + + + | 03/31/ | Documentati | Cardiology | | | | 2018 | on Only | | | | +--------+ + + + + | 04/19/ | Office | Nephrology | Danny Gandara MD | | | 2018 | Visit | | [address] | | | | | | [address] [place] | | | | | | [address] | | | | | | | | +--------+ + + + + | 09/08/ | Office | Cardiology | Sparkle Brady, | | | 2018 | Visit | | [address] | | | | | | [address], | | | | | | [place] [address] | | | | | | [phone] | | | | | | | | +--------+ + + + + as of this encounter Visit Diagnoses Not on filein this encounter"
--- OUTSIDE RECORDS SUMMARY | ~2019-03-17 | XMS | Encounter Summary ---
Demographics + + + | Address | [address] | | | [place] [address] | + + + | Home Phone | | + + + | Preferred Language | Unknown | + + + | Marital Status | | + + + | Restorationist Affiliation | Unknown | + + + | Race | Unknown | + + + | Ethnic Group | Unknown | + + + Author + + + | Author | [facility] [employer] | + + + | Organization | [facility] [employer] | + + + | Address [...] Team Providers + +------+ + | Care Primary Grade Teacher Name | Role | Phone | + [...] | | | | | [place] [address] | | | | | | [phone] | | | +--------+ + + + [...] | | | | | [place] [address] | | | | | | [phone] | | | | | | | [...] [place] | | | | | | [address] | | | | | | | | +--------+ + + + + | 09/08/ | Office | Cardiology | Sparkle Brady, | | | 2018 | Visit | | [address] | | | | | | [address], | | | | | | [place] [address] | | | | | | [phone] | | | | | | | | +--------+ + + + + as of this encounter Visit Diagnoses Not on filein this encounter"
--- OUTSIDE RECORDS SUMMARY | ~2019-03-17 | XMS | Encounter Summary ---
Demographics + + + | Address | [address] | | | [place] [address] | + + + | Home Phone [...] Author + + + | Author | [facility] | + + + | Organization | [facility] | + + + | Address | Unknown | + + + | Phone | Unavailable | + + + Support + + +---------+ + | Name | Relationship | Address | Phone | + + +---------+ + | None None | ECON | Unknown | Unavailable | + + +---------+ + Care Team Providers + +------+ + | Care Deaf Interpreter Name | Role | Phone | + +------+ + PCP | Unavailable | + +------+ + Encounter Details +--------+ + + + + | Date | Type | Department | Care Team | Description | +--------+ + + + + | 01/13/ | Documentati | Neurology at | Sy Goodwin, | | | 2007 | on | [facility] & | MD [place] | | | | | [address] | [place], [place] | | | | | Rj Fox Mail Code: | [address] | | | | | [facility] | [phone] | | | | | [facility] He[facility], | | | | | | [address] [place] [address], | | | | | | [place] [address] | | | | | | [phone] | | | +--------+ + + + [...]
--- OUTSIDE RECORDS SUMMARY | ~2019-03-17 | XMS | Encounter Summary ---
Demographics + + + | Address | [address] | | | [place] [address] | + + + | Home Phone | | + + + | Preferred Language | Unknown | + + + | Marital Status | | + + + | Yazdanism Affiliation | Unknown | + + + | Race | Unknown | + + + | Ethnic Group | Unknown | + + + Author + + + | Author | [facility] | + + + | Organization | [facility] | + + + | Address | [...] + +------+ + | Care Director Of Property Management Name | Role | Phone | + [...] [place] | | | | | | [address] | | | | | | [phone] | | | +--------+ + + + [...] | | | | | | [place] [address] | | | | | | [phone] | | | | | | | [...] | | | | | [address] [place] | | | | | | [address] | | | | | | | | +--------+ + + + + | 09/08/ | Office | Cardiology | [place]le [place], | | | 2018 | Visit | | [address] | | | | | | [address] [place], | | | | | | [place] [address] | | | | | | [phone] | | | | | | | | +--------+ + + + + as of this encounter Visit Diagnoses Not on filein this encounter"
--- OUTSIDE RECORDS SUMMARY | ~2019-03-17 | XMS | Encounter Summary ---
Demographics + + + | Address | [address] | | | [place] [address] | + + + | Home Phone | | + + + | Preferred Language | Unknown | + + + | Marital Status | | + + + | Baptist Affiliation | Unknown | + + + | Race | Unknown | + + + | Ethnic Group | Unknown | + + + Author + + + | Author | [facility] | + + + | Organization | [facility] | + + + | Address | [...] Team Providers + +------+ + | Care Synchronous Motor Assembler Name | Role | Phone | [...] Chart note from | | | | [address] | [address] [place], [place] | Kushal Costa, | | | | [place] [address] | [address] | ) | | | | [phone] | | | +--------+ + + + [...] | | | | | [place] [address] | | | | | | [phone] | | | | | | | [...] [place] | | | | | | [address] | | | | | | | | +--------+ + + + + | 09/08/ | Office | Cardiology | Sparkle Brady, | | | 2018 | Visit | | MD Jennifer Elizabeth | | | | | | Dr [address], | | | | | | [place] [address] | | | | | | [phone] | | | | | | | | +--------+ + + + + as of this encounter Visit Diagnoses Not on filein this encounter"
--- OUTSIDE RECORDS SUMMARY | ~2019-03-17 | XMS | Encounter Summary ---
Demographics + + + | Address | [address] | | | [place] [address] | + + + | Home Phone | | + + + | Preferred Language | Unknown | + + + | Marital Status | | + + + | Catholic Affiliation | Unknown | + + + | Race | Unknown | + + + | Ethnic Group | Unknown | + + + Author + + + | Author | [facility] | + + + | Organization | [facility] | + + + | Address | [...] Providers + +------+ + | Care Director Nursing Service Name | Role | Phone | + [...] | | 2019 | on Only | [place] [address] | JOSÉ MIGUEL Cannon | BNP PSA) | | | | [address] | | | | | | [place] [address] | | | | | | [phone] | | | +--------+ + + + [...] | | | | | | [place] [address] | | | | | | [phone] | | | | | | | [...] [place] | | | | | | [address] | | | | | | | | +--------+ + + + + | 09/08/ | Office | Cardiology | Sparkle Brady, | | | 2019 | Visit | | MD Jennifer Elizabeth | | | | | | Dr [address] | | | | | | [place] [address] | | | | | | [phone] | | | | | | | [...]
--- OUTSIDE RECORDS SUMMARY | ~2019-03-17 | XMS | Encounter Summary ---
Demographics + + + | Address | [address] | | | [place] [address] | + + + | Home Phone | | + + + | Preferred Language | Unknown | + + + | Marital Status | | + + + | Lutheran Affiliation | Unknown | + + + | Race | Unknown | + + + | Ethnic Group | Unknown | + + + Author + + + | Author | [facility] | + + + | Organization | [facility] | + + + | Address | [...] Team Providers + +------+ + | Care Residential Door Installer Name | Role | Phone | + +------+ + | Amee Urrutia MD | PCP | | + +------+ + Reason for Visit + + + | Reason | Comments | + + + | Follow-up | 3 month | + + + Encounter Details +--------+---------+ + + + | Date | Type | Department | Care Team | Description | +--------+---------+ + + + | 03/03/ | Office | [facility] | Sparkle Romeo, | Pulmonary | | 2019 | Visit | Cardiology [place] | [address] | hypertension (HCC) | | | | [address] | [address], | (Primary Dx); | | | | [address] | [place] [address] | Chronic right-sided | | | | [place] [address] | [phone] | heart failure (HCC); | | | | [phone] | | CKD (chronic kidney | | [...] | | | | failure (HCC) | +--------+---------+ + + + Social History [...] + + + + in this encounter Progress Notes Sparkle Romeo MD - 03/03/2019 3:45 PM PDTFormatting of this note may be different fro m the original. Date of Visit: 03/03/19 Name of Fabrication Machine Operator: Sparkle Romeo MD Chief Complaint Patient presents with Follow-up 3 month Requesting Physician: AMEE URRUTIA , Internal Medicine HISTORY OF PRESENT ILLNESS: Patient is a pleasant 78 y.o. male with known history of chronic atrial fibrillation. Presented today for follow up visit. Has been hospitalized more than once for volume overload. Latest pacemaker interrogation showed ROSENDA. States post watchman device implantation, that was recommended given the patient's history of chronic atrial fibrillation and previous GI bleed. Still has unhealed wound in the right LE. Patient previous HPI: Previously hospitalized in the summer of 2017 with GI bleed. His warfarin was stopped. He h ad to be transfused more than once. Colonoscopy revealed polyps which were removed. Warfarin was restarted again however patien t had a bleeding again. Patient continues to be off warfarin currently on low-dose aspirin. Overall limited activity level. Uses a walker to ambulate. Follows up with nephrology secondary to advanced kidney disease. Was diagnosed with atrial fibrillation more than 10 years ago. He had pacemaker implantatio n secondary to significant pauses. REVIEW OF SYSTEMS Constitutional: Positive for chronic fatigue. HENT: Negative for nosebleeds, no runny nose or sneezing. Eyes: Negative for visual disturbance, no double vision, tearing or itching. Respiratory: Negative for cough and shortness of breath, no hemoptysis Cardiovascular: As history of present illness. Gastrointestinal: Negative for nausea, vomiting, abdominal pain and blood in stool. Genitourinary: Negative for hematuria, no dysuria. Musculoskeletal: Positive for arthritic pain uses a walker to ambulate. Skin: Unhealed right LE wound. Neurological: Negative for dizziness, syncope and numbness. Hematological: Does not bruise/bleed easily. Psychiatric/Behavioral: The patient is not nervous/anxious. PAST MEDICAL & SURGICAL HISTORY. FAMILY AND SOCIAL HISTORY WERE REVIEWED Past Medical History Diagnosis Date Atrial fibrillation (HCC) BPH (benign prostatic hyperplasia) Chronic renal insufficiency Congestive heart failure (HCC) DDD (degenerative disc disease), lumbar Hyperlipidemia Hypertension Morbid obesity (HCC) Urinary incontinence Past Surgical History Procedure Laterality Date PACEMAKER INSERTION MEDICATIONS Home Medications Current Outpatient Prescriptions: allopurinol (ZYLOPRIM) 100 MG tablet, Take 2 tablets by mouth daily., Disp: 60 tablet, Rfl: 11 ascorbic acid (VITAMIN C) 500 MG tablet, Take 1,000 mg by mouth daily., Disp: , Rfl: aspirin 81 MG chewable tablet, Take 81 mg by mouth daily with breakfast., Disp: , Rfl: atorvastatin (LIPITOR) 20 MG tablet, Take 20 mg by mouth nightly., Disp: , Rfl: cholecalciferol (VITAMIN D-3) 1000 units tablet, Take 1,000 Units by mouth daily., Dis p: , Rfl: HYDROcodone-acetaminophen (NORCO) 5-325 MG per tablet, Take 1 tablet by mouth every 6 (six) hours as needed for Pain., Disp: , Rfl: mometasone (ELOCON) 0.1 % cream, Apply topically daily., Disp: , Rfl: PARoxetine (PAXIL) 20 MG tablet, Take 20 mg by mouth every morning., Disp: , Rfl: pramipexole (MIRAPEX) 0.125 MG tablet, Take 0.125 mg by mouth 2 (two) times daily as n eeded., Disp: , Rfl: Allergies Allergies Allergen Reactions Vitamin K And Related Shortness of Breath Lisinopril Rash Warfarin Itching and Rash PHYSICAL EXAM Vital Signs: BP 134/70 (BP Location: Left upper arm, Patient Position: Sitting) | Pulse 82 | Ht 1.676 m (5' 6") | Wt 119.4 kg (263 lb 4.8 oz) | SpO2 95% | BMI 42.50 kg/m Constitutional: Well-developed. Neck: No JVD present. No thyromegaly present. Cardiovascular: Irregular irregular with variable S1-S2 Pulses: Carotid pulses are 2+ on the right side, and 2+ on the left side. Radial pulses are 2+ on the right side, and 2+ on the left side. Pulmonary/Chest: Effort normal and breath sounds normal. No wheezes. No rales. Abdominal: Soft. No tenderness. Musculoskeletal: Positive for lower extremity edema. Unhealed ulcer in the RLE. Neurological: Alert. No cranial nerve deficit. Skin: No lower extremities discoloration. DATA Lab Results Component Value Date NA 141 02/11/2019 NA 137 01/28/2019 NA 140 01/08/2019 K 3.7 02/11/2019 K 3.6 01/28/2019 K 3.8 01/08/2019 CL 99 02/11/2019 CL 103 01/28/2019 CL 99 01/08/2019 CO2 30 (A) 02/11/2019 CO2 21 01/28/2019 CO2 32 01/08/2019 BUN 51 (A) 02/11/2019 BUN 50 (A) 01/28/2019 BUN 94 (H) 01/08/2019 CREATININE 1.95 (A) 02/11/2019 CREATININE 1.84 (A) 01/28/2019 CREATININE 2.6 (H) 01/08/2019 Lab Results Component Value Date TROPONINI 0.046 (H) 12/27/2018 TROPONINI 0.048 (H) 12/27/2018 Lab Results Component Value Date WBC 8.7 02/11/2019 WBC 9.1 01/28/2019 WBC 8.75 01/05/2019 HGB 11.0 (A) 02/11/2019 HGB 11.3 (A) 01/28/2019 HGB 12.3 (L) 01/05/2019 HCT 34.0 (A) 02/11/2019 HCT 34.2 (A) 01/28/2019 HCT 38.0 (L) 01/05/2019 MCV 91.9 02/11/2019 MCV 91.5 01/28/2019 MCV 90.6 01/05/2019 PLT 190 02/11/2019 PLT 218 01/28/2019 PLT 201 01/05/2019 Lab Results Component Value Date CHOL 108 12/27/2018 CHOL 187 10/21/2017 TRIG 67 12/27/2018 TRIG 128 10/21/2017 LDL 56 12/27/2018 LDL 116 10/21/2017 GLUF 81 02/11/2019 GLUF 90 01/28/2019 GLUF 105 (H) 01/08/2019 HGBA1C 5.5 12/27/2018 TSH 1.500 12/27/2018 TSH 1.92 10/21/2017 EK11/25/2017 Ordered and reviewed by myself showed atrial fibrillation with ventricular paced rhythm. Last Echo: 01/23/2017 LV is mildly dilated, mild left ventricular hypertrophy, mildly impaired systolic function EF 45-50%. RV is severely enlarged with moderate impaired systolic function, severe pulmonar y hypertension RVSP 77 mmHg. Mild TR. Last stress test: Last cath: 05/12/2018 States post 33 mm watchman device implantation. Carotid US: AAA screening: Lower extremity US: Pacemaker 2006: Guidant 1190, [place] [id number] Last time interrogated 02/04/2018 Ventricular paced 41%. Battery life is 0.5 year ASSESSMENT & PLAN Patient is 78 y.o. with the following medical problems 1. Chronic atrial fibrillation CHADSVASc score of 5. On rate control strategy. S/P Watchman Device. 2. Chronic LE. 3. Recurrent GIB, off anticoagulation. 4. 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 NYH class III, stage C. 5. Hypertension. Blood pressure is controlled. 6. CKD stage IV. Follows up with nephrology. 7. Morbid obesity. 8. 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 Battery at ROSENDA. 9. Severe pulmonary hypertension. 10. Obstructive sleep apnea, non complaint with CPAP. Recommendations: Patient has chronic lower extremity edema, currently on torsemide 20 mg bid and metolazone 5 mg daily. Will be referred for electrophysiology for pacemaker Gen change. Will continue to follow up with Nephrology. Off metoprolol and rate is controlled. Will require wound care for unhealed LE ulcer. Further recommendation will follow Thank you for allowing me to participate in the care of this patient. Primary Care Physician: AMEE Romeo MD 03/03/2019in this encounter Plan of Treatment +--------+ + + + + | Date | Type | Specialty | Care Team | Description | +--------+ + + + + | 03/31/ | Initial | Cardiology | Willie Ortiz | | | 2018 | consult | | MD [address] | | | | | | [address] | | | | | | [place] [address] | | | | | | [phone] | | | | | | | [...] [place] | | | | | | [address] | | | | | | | | +--------+ + + + + | 09/08/ | Office | Cardiology | Sparkle Romeo, | | | 2019 | Visit | | [address] | | | | | | Dr [address], | | | | | | [place] [address] | | | | | | [phone] | | | | | | | | +--------+ + + + + as of this encounter Visit Diagnoses + + | Diagnosis | + + | Pulmonary hypertension (HCC) - Primary | + + | Other chronic pulmonary heart diseases | + + | Chronic right-sided heart failure (HCC) | + + | Congestive heart failure, unspecified | + + | CKD (chronic kidney disease) stage 3, GFR 30-59 ml/min (HCC) | + + | Chronic kidney disease, Stage III (moderate) | + + | Essential hypertension, benign | + + | 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 | + + | Fitting and adjustment of cardiac pacemaker | + + | Chronic diastolic heart failure (HCC) | + + | Chronic diastolic heart failure | + +
--- OUTSIDE RECORDS SUMMARY | ~2019-03-17 | XMS | Clinical Summary ---
Demographics + + + | Address | [address] | | | [place] [address] | + + + | Home Phone | | + + + | Preferred Language | Unknown | + + + | Marital Status | | + + + | Yazdanism Affiliation | Unknown | + + + | Race | Unknown | + + + | Ethnic Group | Unknown | + + + Author + + + | Author | [facility] | + + + | Organization | [facility] | + + + | Address | [...] Team Providers + +------+ + | Care Electric Mule Driver Name | Role | Phone | [...] of chronic renal failure, stage 3 (moderate) ([facility]) | 02/15/2019 | + + [...] ml/min | | | | | | ([facility]) (Primary Dx); | | | | | | Bilateral lower | | | | | | extremity edema; | | | | | | Anemia of chronic | | | | | | renal failure, stage | | | | | | 3 (moderate) ([facility]); | | | | | [...] ml/min | | | | | | ([facility]); Essential | | | | [...] | | | : | | | [id number]/ | | | [id number] | | | y.o.Admit | | | [...] | | | with | | | records management coordinator. | | | Wound | | [...] | | | HomeFollow | | | up:[place] | | | [place], | | | [id number] | [address], [place] | | | [address] | | | n [place] | | | [phone] | | | [phone] | | | [...] | | | [place] | | | [phone] | | | [phone] | | | [...] [address] | | | | | | [place] [address] | | | | | | [phone] | | | | | | | [...] [place] | | | | | | [id number] | | | | | | | | +--------+ + + + + | 09/08/ | Office | | Sparkle Brady, | | | 2018 | Visit | | [address] | | | | | | Dr [address], | | | | | | [place] [address] | | | | | | [phone] | | | | | | | [...] + + + | [facility] | [address] | [place] [address] | [phone] | | LABORATORY | [address]vd[address] | | [...] + + + + | [facility] | [address] | [place] [address] | [phone] | | LABORATORY | Blvd[address] | | [...] | [address] | [place] [address] | [phone] | | LABORATORY | Blvd. | | [...] PROCALCITONIN | 0.16Comment: | <0.5 ng/mL | [facility] | | | INTERPRETIVE [...] performed | | | | | at [facility];[address] [place] [address] | | | | | [facility];[place] [address] | | | + + + + + + + + + + | Performing | Address | City/State/Zipcode | Phone Number | | Organization | | | | + + + + + | [facility] | [address] | [place] [address] | | + + + + + [...] | + + + + + | [facility] | [address] [facility] | [place] [address] | | + + + + + [...] the | | | | | MDRD IDIN traceable | | | | | equation.Testing | | | | | performed at [facility], [address] | | | | | [facility], | | | | | [place] [address] | | | + + + + + + + | Specimen | + + | Blood | + + + + + + + | Performing | Address | City/State/Zipcode | Phone Number | | Organization | | | | + + + + + | [facility] | [address] | [place] [address] | [phone] | | LABORATORY | Blvd. | | [...] | + + + + + | [facility] | [address] | [place] [address] | | + + + + + NM cardiovascular stress treadmill (12/28/2018 12:54 PM) + + + + + | Component | Value | Ref Range | Performed At | + + + + + | Diagnosis | Non diagnostic | | [facility] | | | pharmacological [...] | + + + + + | [facility] | [address] | [place] [address] | | + + + + + Reticulocyte count (12/27/2018 4:43 PM) + + + + + | Component | Value | Ref Range | Performed At | + + + + + | RETICULOCYTES | 1.4Comment: Testing | 0.4 - 2.7 % | [facility] | | | performed at [facility];[address] | | [address];[place] | | | | | [address] | | | + + + + + + + + + + | Performing | Address | City/State/Zipcode | Phone Number | | Organization | | | | + + + + + | [facility] | [address] | [place] [address] | | + + + + + [...] Michael Joshi Date of : 1940 | [facility] | | Performing Physician: Pedrito | [...] | | calcified. Aortic Valve: There is byaw-yk-jlrkbtll aortic | | | regurgitation. Mitral Valve: [...] | | mmHg TR Vmax: 3.49 m/s Inspector Scales: ROSY Authenticated by: | | | Pedrito Taylor MD Report Date/Time: 12-27-2018 13:58:10 | | + + + + + | Procedure Note | + + | Feliz, Rad Results In - 12/27/2018 1:58 PM PDT Patient Name: Lorrie Joshi | | : 1940Accession: [id number] Physician: Pedrito Taylor | | MD ------REPORT [...] is mildly calcified. Aortic Valve: There is zffe-pt-hdbknarf aortic | | regurgitation.Mitral Valve: Mild mitral [...] mlLAESV Index (A-L): 109.85 ml/m2LAAs A2C: 64.13 [id number] A-L A2C: 351.26 | | mlLALs A2C: 9.93 cmLAAs A4C: 45.52 [id number] A-L A4C: 173.98 mlLALs A4C: 10.11 | | cmTAPSE: 1.10 cmHR: 80.22 BPMAV maxP.70 mmHgAV meanP.31 mmHgAV Vmax: | | 1.55 m/Davie Vmean: 1.10 m/Davie VTI: 33.13 cmAVA Vmax: 2.73 cm2AVA (VTI): 2.82 | | ps6IVGQ Vmax: 0.00 cm2/m2AVAI (VTI): 0.00 cm2/m2LVCI Dopp: 2.84 l/udbv9PMDH Dopp: | | 6.45 l/minHR: 68.91 BPMLVOT [...] |TR Vmax: 3.49 m/s | | | |Inspector Scales: MW | |Authenticated by: Pedrito Taylor MD [...] | + + + + + | [facility] | [address] | [place] [address] | | + + + + + Troponin I (12/27/2018 7:51 AM)Only the most recent of 2 results within the time period is included. + + + + + | Component | Value | Ref Range | Performed At | + + + + + | TROPONIN I | 0.046 (H)Comment: 0.04 | 0.00 - 0.04 ng/mL | [facility] | | | ng/mL [...] performed | | | | | at [facility];[address] | | | [address];[place] [address] | | | + + + + + + + | Specimen | + + | Blood | + + + + + + + | Performing | Address | City/State/Zipcode | Phone Number | | Organization | | | | + + + + + | [facility] | [address] | [place] [address] | | + + + + + [...] | | | | | [place] [address] | | | + + + + + + + | Specimen | + + | Blood | + + + + + + + | Performing | Address | City/State/Zipcode | Phone Number | | Organization | | | | + + + + + | [facility] | [address] | [place] [address] | [phone] | | LABORATORY | Blvd. | | | + + + + + TSH (12/27/2018 5:17 AM) + + + + + | Component | Value | Ref Range | Performed At | + + + + + | TSH | 1.500Comment: Testing | 0.450 - 5.100 uIU/mL | [facility] | | | performed at [facility], [address] | | LABORATORY | | | [address], | | | | | [place] [address] | | | + + + + + + + | Specimen | + + | Blood | + + + + + + + | Performing | Address | City/State/Zipcode | Phone Number | | Organization | | | | + + + + + | [facility] | [address] | [place] [address] | [phone] | | LABORATORY | Blvd. | | | + + + + + Phosphorus (12/27/2018 5:17 AM) + + + + + | Component | Value | Ref Range | Performed At | + + + + + | PHOSPHORUS | 3.2Comment: Testing | 2.3 - 4.8 mg/dL | [facility] | | | performed at [facility], [address] | | LABORATORY | | | [facility], | | | | | [place] [address] | | | + + + + + + + | Specimen | + + | Blood | + + + + + + + | Performing | Address | City/State/Zipcode | Phone Number | | Organization | | | | + + + + + | [facility] | [address] | [place] [address] | [phone] | | LABORATORY | Blvd. | | [...] | | | | | performed at [facility], [address] | | | | | [facility], | | | | | [place] [address] | | | + + + + + + + | Specimen | + + | Blood | + + + + + + + | Performing | Address | City/State/Zipcode | Phone Number | | Organization | | | | + + + + + | [facility] | [address] | [place] [address] | [phone] | | LABORATORY | Blvd. | | | + + + + + Ferritin (12/27/2018 5:17 AM) + + + + + | Component | Value | Ref Range | Performed At | + + + + + | FERRITIN | 33Comment: Testing | 11 - 450 ng/mL | [facility] | | | performed at [facility], [address] | | LABORATORY | | | [facility], | | | | | [place] [address] | | | + + + + + + + | Specimen | + + | Blood | + + + + + + + | Performing | Address | City/State/Zipcode | Phone Number | | Organization | | | | + + + + + | [facility] | [address] | [place] [address] | [phone] | | LABORATORY | Blvd. | | [...] | [facility] | | | performed at [facility], [address] | | LABORATORY | | | [address], | | | | | [place] [address] | | | + + + + + + + | Specimen | + + | Blood | + + + + + + + | Performing | Address | City/State/Zipcode | Phone Number | | Organization | | | | + + + + + | [facility] | [address] | [place] [address] | [phone] | | LABORATORY | Blvd. | | [...] + + + + | Calculated R [place] | 10 | degrees | [facility] | + + + + + | Calculated T [place] | 0 | degrees | [facility] | + + + + + | Diagnosis | Junctional | | [facility] | | | rhythmVentricular [...] | + + + + + | [facility] | [address] | [place] [address] | | + + + + + [...] [facility] | [address] | [facility] [address] | | + + + + + [...] +------+-------+ + | MEDICARE | MEDICA | [id number] | | | [address] | | | RE | | | | [place] [address] | | | IP-OP | | | [...] | Self [birth year] Home: | [address] [place] [address] | | | al/Fam | | 1941 | [phone] | [place] | | | lissy | | | [birth year] | [address] | + +--------+ +--------+ + +
--- OUTSIDE RECORDS SUMMARY | ~2019-03-17 | XMS | Encounter Summary ---
Demographics + + + | Address | [address] | | | [place] [address] | + + + | Home Phone | | + + + | Preferred Language | Unknown | + + + | Marital Status | | + + + | Baptist Affiliation | Unknown | + + + | Race | Unknown | + + + | Ethnic Group | Unknown | + + + Author + + + | Author | [facility] | + + + | Organization | [facility] | + + + | Address | [...] Team Providers + +------+ + | Care Mercantile Agent Name | Role | Phone | + +------+ + | Kushal Costa MD | PCP | | + +------+ + Encounter Details +--------+ + + + + | Date | Type | Department | Care Team | Description | +--------+ + + + + | 12/26/ | Hospital | [facility] | See, Medical | Chest pain, | | 2018 | Encounter | [facility] | Record [address] | unspecified type | | | | RADIOLOGY [address] | [address] [place] [address], | | | | [address] | [place] [address] | | | | | [place] [address] | [phone] | | | | | [phone] | | | +--------+ + + + [...] | | | | | [place] [address] | | | | | | [phone] | | | | | | | [...] [place] | | | | | | [address] | | | | | | | | +--------+ + + + + | 09/08/ | Office | Cardiology | Sparkle Brady, | | | 2019 | Visit | | [address] | | | | | | [address], | | | | | | [place] [address] | | | | | | [phone] | | | | | | | [...] [facility] | [address] | [place] [address] | | + + + + + in this encounter Visit Diagnoses + + | Diagnosis | + + | Chest pain, unspecified type | + +"
--- OUTSIDE RECORDS SUMMARY | ~2019-03-17 | XMS | Encounter Summary ---
Demographics + + + | Address | [address] | | | [place] [address] | + + + | Home Phone [...] Author | [facility] | + + + | Organization | [facility] | + + + | Address | [...] Team Providers + +------+ + | Care Decal Transferrer Name | Role | Phone | + [...] | | | | | [place] [address] | | | | | | [phone] | | | +--------+ + + + [...] | | | | | [place] [address] | | | | | | [phone] | | | | | | | [...] [place] | | | | | | [address] | | | | | | | | +--------+ + + + + | 09/08/ | Office | Cardiology | Spakrle Brady, | | | 2018 | Visit | | [address] | | | | | | Dr [address], | | | | | | [place] [address] | | | | | | [phone] | | | | | | | | +--------+ + + + + as of this encounter Visit Diagnoses Not on filein this encounter"
--- OUTSIDE RECORDS SUMMARY | ~2019-03-17 | XMS | Encounter Summary ---
Demographics + + + | Address | [address] | | | [place] [address] | + + + | Home Phone [...] + | Author | [facility] | + + + | Organization | [facility] | + + + | Address | [...] Providers + +------+ + | Care Marketing Editor Name | Role | Phone | + +------+ + | Kushal Costa MD | PCP | | + +------+ + Encounter Details +--------+ + + + + | Date | Type | Department | Care Team | Description | +--------+ + + + + | 03/03/ | Telephone | [facility] | Madison Kerr MA | | | 2019 | | Cardiology [place] | | | | | | [address] | | | | | | [place] | | | | | | [address] | | | | | | [phone] | | | +--------+ + + + [...] | | | | | [place] [address] | | | | | | [phone] | | | | | | | [...] [place] | | | | | | [address] | | | | | | | | +--------+ + + + + | 09/08/ | Office | Cardiology | Sparkle Brady, | | | 2018 | Visit | | [address] | | | | | | [address] [place], | | | | | | [place] [address] | | | | | | [phone] | | | | | | | | +--------+ + + + + as of this encounter Visit Diagnoses Not on filein this encounter"
--- OUTSIDE RECORDS SUMMARY | ~2019-03-17 | XMS | Encounter Summary ---
Demographics + + + | Address | [address] | | | [place] [address] | + + + | Home Phone | | + + + | Preferred Language | Unknown | + + + | Marital Status | | + + + | Spiritism Affiliation | Unknown | + + + | Race | Unknown | + + + | Ethnic Group | Unknown | + + + Author + + + | Author | [facility] | + + + | Organization | [facility] | + + + | Address | [...] Team Providers + +------+ + | Care Mobile Home Servicer Name | Role | Phone | + +------+ + | Kushal Costa MD | PCP | | + +------+ + Encounter Details +--------+ + + + + | Date | Type | Department | Care Team | Description | +--------+ + + + + | 02/15/ | Telephone | [facility] | [place], | | | 2018 | | [address] | [place] | | | | | [address] | | | | | | [place] [address] | | | | | | [phone] | | | +--------+ + + + [...] | | | | | [place] [address] | | | | | | [phone] | | | | | | | [...] [place] | | | | | | [address] | | | | | | | | +--------+ + + + + | 09/08/ | Office | Cardiology | Sparkle Brady, | | | 2018 | Visit | | [address] | | | | | | [address] [place], | | | | | | [place] [address] | | | | | | [phone] | | | | | | | | +--------+ + + + + + +--------+ + + | Name | Priori | Associated Diagnoses | Order Schedule | | | ty | | | + +--------+ + + | Basic metabolic panel | Routin | CKD (chronic | Expected: | | | e | kidney disease) | 02/22/2019, Expires: | | | | stage 3, GFR 30-59 | 02/16/2020 | | | | ml/min ([facility]) | | | | | Essential | | | | | hypertension, benign | | | | | Secondary | | | | | hyperparathyroidism | | | | | ([facility]) | | + +--------+ + + | Renal function panel | Routin | CKD (chronic | Expected: | | | e | kidney disease) | 04/17/2019, Expires: | | | | stage 3, GFR 30-59 | 02/16/2020 | | | | ml/min ([facility]) | | | | | Essential | | | | | hypertension, benign | | | | | Secondary | | | | | hyperparathyroidism | | | | | ([facility]) | | + +--------+ + + | Magnesium | Routin | CKD (chronic | Expected: | | | e | kidney disease) | 04/17/2019, Expires: | | | | stage 3, GFR 30-59 | 02/16/2020 | | | | ml/min ([facility]) | | | | | Essential | | | | | hypertension, benign | | | | | Secondary | | | | | hyperparathyroidism | | | | | (HCC) | | + +--------+ + + | CBC W/Auto Diff (Reflex to | Routin | CKD (chronic | Expected: | | Manual) | e | kidney disease) | 04/17/2019, Expires: | | | | stage 3, GFR 30-59 | 02/16/2020 | | | | ml/min ([facility]) | | | | | Essential | | | | | hypertension, benign | | | | | Secondary | | | | | hyperparathyroidism | | | | | (HCC) | | + +--------+ + + | Uric acid | Routin | CKD (chronic | Expected: | | | e | kidney disease) | 04/17/2019, Expires: | | | | stage 3, GFR 30-59 | 02/16/2020 | | | | ml/min ([facility]) | | | | | Essential | | | | | hypertension, benign | | | | | Secondary | | | | | hyperparathyroidism | | | | | (HCC) | | + +--------+ + + | PTH intact no calcium | Routin | CKD (chronic | Expected: | | | e | kidney disease) | 04/17/2019, Expires: | | | | stage 3, GFR 30-59 | 02/16/2020 | | | | ml/min ([facility]) | | | | | Essential | | | | | hypertension, benign | | | | | Secondary | | | | | hyperparathyroidism | | | | | ([facility]) | | + +--------+ + + as of this encounter Visit Diagnoses + + | Diagnosis | + + | CKD (chronic kidney disease) stage 3, GFR 30-59 ml/min ([facility]) - Primary | + + | Chronic kidney disease, Stage III (moderate) | + + | Essential hypertension, benign | + + | Secondary hyperparathyroidism (HCC) | + + | Secondary hyperparathyroidism (of renal origin) | + +"
--- OUTSIDE RECORDS SUMMARY | ~2019-03-17 | XMS | Encounter Summary ---
Demographics + + + | Address | [address] | | | [place] [address] | + + + | Home Phone | | + + + | Preferred Language | Unknown | + + + | Marital Status | | + + + | Temple Affiliation | Unknown | + + + | Race | Unknown | + + + | Ethnic Group | Unknown | + + + Author + + + | Author | [facility] | + + + | Organization | [facility] | + + + | Address | [...] Team Providers + +------+ + | Care Soil Biology Teacher Name | Role | Phone | [...] | | | | | | | [address] Phone: | | | | | | | [phone] | | | | | | | Fax: | | | | | | | [phone] | +--------+--------+ + + + + Encounter Details +--------+ + + + + | Date | Type | Department | Care Team | Description | +--------+ + + + + | 12/27/ | Hospital | [facility] | Enriqueta Reese, | Hypervolemia, | | 2019 - | Encounter | [facility] 7th | [address] | unspecified | | | | [facility] | [place] [address] | hypervolemia type | | 01/08/ | | [address] | [phone] | (Primary Dx) | | 2019 | | [place] [address] | | | | | | [phone] | Franki Carrizales MD | | | | | | [address] | | | | | | [place] [address] | | | | | | [phone] | | | | | | | | | | | | Shar Dawson, | | | | | | [address] | | | | | | [place] [address] | | | | | | [phone] | | | | | | | | | | | | Nellie Clinton | | | | | | MD [address] | | | | [address] | | | | | | [place] [address] | | | | | | [phone] | | | | | | | [...] may be differ ent from the original. [facility] Service: Hospitalist Physician Discharge Summary Patient [...] discussed with Dr. Gandara, the patient's primary pacu rn. He will check his bloo d pressure [...] patient will follow u p outpatient with working supervisor. Wound care instructions have been given. Plan [...] Urrutia MD [address] [place] [address] Schedule an appointment as soon as possible for a visit in 3 days resume care with all providers you were seeing prior to admission Danny Gandara MD [address] [address] Schedule an appointment as soon [...] summary. This entry has been created using [employer] Speech Recognition software and [employer]. The entry has been reviewed and there [...] Abdominal pain Extreme tiredness Date Last Reviewed: 11/20/201619999961-5351 [employer]. [address] [place] [address], [place] [address]. All righ ts reserved. This information is not intended as a substitute for professional medical care. Always follow your healthcare professional's instructions. Outpatient follow-up with podiatry next week For left foot toes: [place] effected area with betadine BID or PRN [...] and treat & OT eval and treat, fpc eval and treat wound s Please allow [...] may be differ ent from the original. [facility] Service: Hospitalist Progress Note Hospital Day: [...] Principal Problem: IZZY (acute kidney injury) ([facility]) Active Problems: CKD (chronic kidney disease) stage 3, GFR 30-59 ml/min ([facility]) Essential hypertension, benign Bilateral lower extremity edema Chronic atrial fibrillation (HCC) Cardiac pacemaker in situ NEETU (obstructive sleep apnea) Pulmonary hypertension (HCC) Right heart failure (HCC) Chronic diastolic heart failure ([facility]) ASSESSMENT & PLAN Shortness of breath. Resolved. [...] PM This entry has been created using [employer] Speech Recognition software and [employer]. The entry has been reviewed and there [...] may be differ ent from the original. [facility] Service: Hospitalist Progress Note Hospital Day: [...] Principal Problem: IZZY (acute kidney injury) ([facility]) Active Problems: CKD (chronic kidney disease) stage 3, GFR 30-59 ml/min ([facility]) Essential hypertension, benign Bilateral lower extremity edema Chronic atrial fibrillation ([facility]) Cardiac pacemaker in situ NEETU (obstructive sleep apnea) Pulmonary hypertension (HCC) Right heart failure ([facility]) Chronic diastolic heart failure ([facility]) ASSESSMENT & PLAN Shortness of breath. Resolved. [...] AM This entry has been created using [employer] Speech Recognition software and [employer]. The entry has been reviewed and there may still exist sound alike word errors. Dayna Roy, [employer] Supervisor - 01/05/2019 3:46 PM PDTFormatting of this note may b e different from the original. 01/05/19 1459 Subjective Timepoint Admit Pt c/o Pt triggered for screening secondary to LOS 8. Pt presented to [facility] with SOB and ang darcy. D/C [...] pt has followed RD in past at [facility], doesn't cook with salt, uses [...] Low Follow up date 01/12/19 Dayna Roy, [employer] Placing Supervisor Associated attestation - Jacob Diaz RD - 01/05/2019 3:48 PM VENESSA Gooden Christopher D [facility] - 01/05/2019 3:05 PM PDTRx CHF Medication Counseling Note Patient received medication counseling for the following CHF medications: (ARBs): losartan (COZAAR) Beta Blockers: metoprolol succinate (TOPROL XL) Diuretics: torsemide (DEMADEX) and metolazone (ZAROXOLYN) I had the pleasure to speak with the patient today regarding his medications utilized in [facility] management of diastolic heart failure. We [...] understanding of the material discussed. Pedrito Crane, [facility] 01/05/2019 3:04 Nellie Roberto MD - 01/05/2019 10:33 AM PDTFormatting of this note may be different from the original. [facility] Service: Hospitalist Progress Note Hospital Day: [...] AM This entry has been created using [employer] Speech Recognition software and [employer]. The entry has been reviewed and there may still exist sound alike word errors. Shar Dawson MD - 01/04/2019 10:10 PM PDTFormatting of this note may be different fro m the original. [facility] Service: Hospitalist Progress Note Pt: Michael [...] other chronic comorbidities who p resents to [facility] ER from [facility] on 12/27 for acute dyspnea/anginal equivalent. [...] not d/c'd. He is accepted to a [facility] and also he does get [...] hours. No results for input(s): PHART, PO2ART, IAW4LSF, B2XRYPRB, BEART in the last 168 hours. No [...] and managing patient and counseling/coordination. Dictation software, [employer], used which may contain error for similar [...] note may be different from the original. [facility] Service: Hospitalist Progress Note Pt: Michael [...] other chronic comorbidities who p resents to [facility] ER from [facility] on 12/27 for acute dyspnea/anginal equivalent. [...] hours. No results for input(s): PHART, PO2ART, EHB1YYA, I7OHZCRD, BEART in the last 168 hours. No [...] and managing patient and counseling/coordination. Dictation software, [employer], used which may contain error for similar sounding words even af ter review. Personal communication requested for any clarification. Portions of this chart may have been copied from previous notes for continuity of care purp Shar Gordon MD - 01/02/2019 9:58 AM PDTFormatting of this note may be different fro m the original. [facility] Service: Hospitalist Progress Note Pt: Michael Joshi AGE/SEX: 78 y.o. male ROOM: [facility] : 1940 PCP: AMEE [...] other chronic comorbidities who p resents to [facility] ER from [facility] on 12/27 for acute dyspnea/anginal equivalent. [...] hours. No results for input(s): PHART, PO2ART, CJT6SRB, I1QWMCOC, BEART in the last 168 hours. No [...] and managing patient and counseling/coordination. Dictation software, [employer], used which may contain error for similar sounding words even af ter review. Personal communication requested for any clarification. Portions of this chart may have been copied from previous notes for continuity of care purp Shar Gordon MD - 01/01/2019 9:41 AM PDTFormatting of this note may be different fro m the original. [facility] Service: Hospitalist Progress Note Pt: Michael [...] other chronic comorbidities who p resents to [facility] ER from [facility] on 12/27 for acute dyspnea/anginal equivalent. [...] hours. No results for input(s): PHART, PO2ART, FQX3CLC, D5VZTZGS, BEART in the last 168 hours. No [...] disease) stage 3, GFR 30-59 ml/min ([facility]) Essential hypertension, benign Bilateral lower extremity edema Chronic atrial fibrillation (HCC) Cardiac pacemaker in situ Pulmonary hypertension (HCC) Right heart failure ([facility]) Chronic systolic heart failure ([facility]) ASSESSMENT & PLAN 1. Acute respiratory distress [...] and managing patient and counseling/coordination. Dictation software, [employer], used which may contain error for similar sounding words even af ter review. Personal communication requested for any clarification. Portions of this chart may have been copied from previous notes for continuity of care purp Shar Gordon MD - 12/31/2018 7:59 PM PDTFormatting of this note may be different fro m the original. [facility] Service: Hospitalist Progress Note Pt: Michael [...] other chronic comorbidities who p resents to [facility] ER from [facility] on 12/27 for acute dyspnea/anginal equivalent. [...] hours. No results for input(s): PHART, PO2ART, NKG0CNJ, K8WEKKOA, BEART in the last 168 hours. No results for input(s): APTT, INR, PTT in the last 168 hours. Recent Labs Lab 12/27/18 0517 TSH 1.500 Recent Labs Lab 12/27/18 0751 12/27/18 0517 TROPONINI 0.046* 0.048* Results No results found for the last 72 hours. RADIOLOGY: Ia Myocardial Perfusion Spect (stress And Rest) Result [...] and managing patient and counseling/coordination. Dictation software, [employer], used which may contain error for similar sounding words even af ter review. Personal communication requested for any clarification. Portions of this chart may have been copied from previous notes for continuity of care purp Shar Gordon MD - 12/30/2018 9:28 AM PDTFormatting of this note may be different fro m the original. [facility] Service: Hospitalist Progress Note Pt: Michael [...] other chronic comorbidities who p resents to [facility] ER from [facility] on 12/27 for acute dyspnea/anginal equivalent. [...] hours. No results for input(s): PHART, PO2ART, BRJ8LMI, M4ZKKMXJ, BEART in the last 168 hours. No [...] and managing patient and counseling/coordination. Dictation software, [employer], used which may contain error for similar sounding words even af ter review. Personal communication requested for any clarification. Portions of this chart may have been copied from previous notes for continuity of care purp Shar Gordon MD - 12/29/2018 4:15 PM PDTFormatting of this note may be different fro m the original. [facility] Service: Hospitalist Progress Note Pt: Michael [...] other chronic comorbidities who p resents to [facility] ER from [facility] on 12/27 for acute dyspnea/anginal equivalent. [...] hours. No results for input(s): PHART, PO2ART, TXG9JQT, R0RSQBCJ, BEART in the last 168 hours. No [...] and managing patient and counseling/coordination. Dictation software, [employer], used which may contain error for similar sounding words even af ter review. Personal communication requested for any clarification. Portions of this chart may have been copied from previous notes for continuity of care purp Rhonda Mendiola, [employer] SUPERVISOR - 12/29/2018 1:01 AM PDTPer RN's request, [...] Franki Carrizales MD - 12/28/2018 9:45 AM [facility] Service: Hospitalist Progress Note Hospital [...] other chronic comorbidities who p resents to [facility] ER from [facility] on 12/27 for acute dyspnea/anginal equivalent. [...] | | | | | [place] [address] | | | | | | [phone] | | | | | | | [...] | | | | | | [place] [address] | | | | | | [phone] | | | | | | | [...] (L) | 3.3 - 4.8 g/dL | [facility] | | | | | LABORATORY [...] the | | | | | MDRD [facility] traceable | | | | | equation.Testing | | | | | performed at [facility], [address] | | | | | [facility], | | | | | [place] [address] | | | + + + + + + + | Specimen | + + | Blood | + + + + + + + | Performing | Address | City/State/Zipcode | Phone Number | | Organization | | | | + + + + + | [facility] | [address] | [place] [address] | [phone] | | LABORATORY | [address]vd[address] | | [...] (H) | 0.70 - 1.30 mg/dL | [facility] | | | | | LABORATORY [...] (L)Comment: GFR <60: | >60 mL/min/1.73m2 | [facility] | | | CHRONIC KIDNEY DISEASE, [...] the | | | | | MDRD IDSC traceable | | | | | equation.Testing | | | | | performed at [facility], [address] | | | | | [facility], | | | | | [place] [address] | | | + + + + + + + | Specimen | + + | Blood | + + + + + + + | Performing | Address | City/State/Zipcode | Phone Number | | Organization | | | | + + + + + | [facility] | [address] | [place] [address] | [phone] | | LABORATORY | Blvd. | | [...] 9.5 | 8.5 - 10.5 mg/dL | [facility] | | | | | LABORATORY | + + + + + | Albumin | 2.9 (L) | 3.3 - 4.8 g/dL | [facility] | | | | | LABORATORY | + + + + + | PHOSPHORUS | 3.5 | 2.3 - 4.8 mg/dL | [facility] | | | | | LABORATORY | + + + + + | EGFR | 21 (L)Comment: GFR <60: | >60 mL/min/1.73m2 | [facility] | | | CHRONIC KIDNEY DISEASE, [...] | | | | | performed at [facility], [address] | | | | | [facility], | | | | | [place] [address] | | | + + + + + + + | Specimen | + + | Blood | + + + + + + + | Performing | Address | City/State/Zipcode | Phone Number | | Organization | | | | + + + + + | [facility] | [address] | [place] [address] | [phone] | | LABORATORY | [address] | | [...] 9.7 | 8.5 - 10.5 mg/dL | [facility] | | | | | LABORATORY | + + + + + | Albumin | 2.9 (L) | 3.3 - 4.8 g/dL | [facility] | | | | | LABORATORY | + + + + + | PHOSPHORUS | 4.0 | 2.3 - 4.8 mg/dL | [facility] | | | | | LABORATORY | + + + + + | EGFR | 22 (L)Comment: GFR <60: | >60 mL/min/1.73m2 | [facility] | | | CHRONIC KIDNEY DISEASE, [...] | | | | | performed at [facility], [address] | | | | | [facility], | | | | | [place] [address] | | | + + + + + + + + + + | Performing | Address | City/State/Zipcode | Phone Number | | Organization | | | | + + + + + | [facility] | [address] | [place] [address] | [phone] | | LABORATORY | [address]. | | | + + + + + Magnesium (01/05/2019 6:12 AM) + + + + + | Component | Value | Ref Range | Performed At | + + + + + | MAGNESIUM | 2.1Comment: Testing | 1.7 - 2.4 mg/dL | [facility] | | | performed at [facility], [facility] [address] | | LABORATORY | | | [facility], | | | | | [place] [address] | | | + + + + + + + | Specimen | + + | Blood | + + + + + + + | Performing | Address | City/State/Zipcode | Phone Number | | Organization | | | | + + + + + | [facility] | [address] [place] [address] | [place] [address] | [phone] | | LABORATORY | Blvd. | | [...] | [facility] | | | performed at [facility], [address] | | LABORATORY | | | [place], | | | | | [place] [address] | | | + + + + + + + | Specimen | + + | Blood | + + + + + + + | Performing | Address | City/State/Zipcode | Phone Number | | Organization | | | | + + + + + | [facility] | [address] | [place] [address] | [phone] | | LABORATORY | [address] | | [...] | | | | | performed at [facility], [address] | | | | | [facility], | | | | | [place] [address] | | | + + + + + + + + + + | Performing | Address | City/State/Zipcode | Phone Number | | Organization | | | | + + + + + | [facility] | [address] [place] [address] | [place] [address] | [phone] | | LABORATORY | [address]vd. | | | + + + + + Magnesium (01/04/2019 5:49 AM) + + + + + | Component | Value | Ref Range | Performed At | + + + + + | MAGNESIUM | 2.1Comment: Testing | 1.7 - 2.4 mg/dL | [facility] | | | performed at [facility], [address] | | LABORATORY | | | [facility] [address], | | | | | [place] [address] | | | + + + + + + + | Specimen | + + | Blood | + + + + + + + | Performing | Address | City/State/Zipcode | Phone Number | | Organization | | | | + + + + + | [facility] | [address] | [place] [address] | [phone] | | LABORATORY | [address] | | [...] | [facility] | | | performed at [facility], [address] | | LABORATORY | | | [address], | | | | | [place] [address] | | | + + + + + + + | Specimen | + + | Blood | + + + + + + + | Performing | Address | City/State/Zipcode | Phone Number | | Organization | | | | + + + + + | [facility] | [address] | [place] [address] | [phone] | | LABORATORY | [address] | | [...] (H) | 0.70 - 1.30 mg/dL | [facility] | | | | | LABORATORY [...] 3.2 | 2.3 - 4.8 mg/dL | [facility] | | | | | [...] the | | | | | MDRD IDSC traceable | | | | | equation.Testing | | | | | performed at [facility], [address] | | | | | [facility], | | | | | [place] [address] | | | + + + + + + + + + + | Performing | Address | City/State/Zipcode | Phone Number | | Organization | | | | + + + + + | [facility] | [address] [place] [address] | [place] [address] | [phone] | | LABORATORY | [address]vd. | | | + + + + + Magnesium (01/03/2019 5:44 AM) + + + + + | Component | Value | Ref Range | Performed At | + + + + + | MAGNESIUM | 2.3Comment: Testing | 1.7 - 2.4 mg/dL | [facility] | | | performed at [facility], [address] | | LABORATORY | | | [facility], | | | | | [place] [address] | | | + + + + + + + | Specimen | + + | Blood | + + + + + + + | Performing | Address | City/State/Zipcode | Phone Number | | Organization | | | | + + + + + | [facility] | [address] | [place] [address] | [phone] | | LABORATORY | Blvd[address] | | [...] | [facility] | | | performed at [facility], [address] | | LABORATORY | | | [address], | | | | | [place] [address] | | | + + + + + + + | Specimen | + + | Blood | + + + + + + + | Performing | Address | City/State/Zipcode | Phone Number | | Organization | | | | + + + + + | [facility] | [address] | [place] [address] | [phone] | | LABORATORY | [address]vd. | | | + + + + + Renal function panel (01/02/2019 5:52 AM) + + + + + | Component | Value | Ref Range | Performed At | + + + + + | SODIUM | 139 | 135 - 145 mmol/L | [facility] | | | | | LABORATORY | + + + + + | POTASSIUM | 3.5 | 3.5 - 4.9 mmol/L | [facility] | | | | | LABORATORY | [...] (H) | 0.70 - 1.30 mg/dL | [facility] | | | | | LABORATORY | + + + + + | CALCIUM | 9.4 | 8.5 - 10.5 mg/dL | [facility] | | | | | LABORATORY | + + + + + | Albumin | 2.7 (L) | 3.3 - 4.8 g/dL | [facility] | | | | | LABORATORY | + + + + + | PHOSPHORUS | 4.2 | 2.3 - 4.8 mg/dL | [facility] | | | | | LABORATORY | + + + + + | EGFR | 21 (L)Comment: GFR <60: | >60 mL/min/1.73m2 | [facility] | | | CHRONIC KIDNEY DISEASE, [...] | | | | | performed at [facility], [address] | | | | | [facility], | | | | | [place] [address] | | | + + + + + + + + + + | Performing | Address | City/State/Zipcode | Phone Number | | Organization | | | | + + + + + | [facility] | [address] [place] [address] | [place] [address] | [phone] | | LABORATORY | [address]. | | | + + + + + Magnesium (01/02/2019 5:52 AM) + + + + + | Component | Value | Ref Range | Performed At | + + + + + | MAGNESIUM | 2.3Comment: Testing | 1.7 - 2.4 mg/dL | [facility] | | | performed at [facility], [address] | | LABORATORY | | | [facility], | | | | | [place] [address] | | | + + + + + + + | Specimen | + + | Blood | + + + + + + + | Performing | Address | City/State/Zipcode | Phone Number | | Organization | | | | + + + + + | [facility] | [address] | [place] [address] | [phone] | | LABORATORY | Blvd. | | [...] | [facility] | | | performed at [facility], [address] | | LABORATORY | | | [facility] [address], | | | | | [place] [address] | | | + + + + + + + | Specimen | + + | Blood | + + + + + + + | Performing | Address | City/State/Zipcode | Phone Number | | Organization | | | | + + + + + | [facility] | [address] [place] [address] | [place] [address] | [phone] | | LABORATORY | [address] | | [...] 9.2 | 8.5 - 10.5 mg/dL | [facility] | | | | | LABORATORY | + + + + + | Albumin | 2.9 (L) | 3.3 - 4.8 g/dL | [facility] | | | | | LABORATORY | + + + + + | PHOSPHORUS | 4.0 | 2.3 - 4.8 mg/dL | [facility] | | | | | LABORATORY | + + + + + | EGFR | 18 (L)Comment: GFR <60: | >60 mL/min/1.73m2 | [facility] | | | CHRONIC KIDNEY DISEASE, [...] | | | | | performed at [facility], [address] | | | | | [facility], | | | | | [place] [address] | | | + + + + + + + | Specimen | + + | Blood | + + + + + + + | Performing | Address | City/State/Zipcode | Phone Number | | Organization | | | | + + + + + | [facility] | [address] | [place] [address] | [phone] | | LABORATORY | [place]. | | | + + + + + Magnesium (01/01/2019 5:42 AM) + + + + + | Component | Value | Ref Range | Performed At | + + + + + | MAGNESIUM | 2.3Comment: Testing | 1.7 - 2.4 mg/dL | [facility] | | | performed at [facility], [address] | | LABORATORY | | | [address], | | | | | [place] [address] | | | + + + + + + + | Specimen | + + | Blood | + + + + + + + | Performing | Address | City/State/Zipcode | Phone Number | | Organization | | | | + + + + + | [facility] | [address] | [place] [address] | [phone] | | LABORATORY | Blvd. | | [...] | [facility] | | | performed at [facility], [address] | | LABORATORY | | | [place], | | | | | [place] [address] | | | + + + + + + + | Specimen | + + | Blood | + + + + + + + | Performing | Address | City/State/Zipcode | Phone Number | | Organization | | | | + + + + + | [facility] | [address] | [place] [address] | [phone] | | LABORATORY | [address]vd. | | | + + + + + PROCALCITONIN (12/31/2018 5:21 AM) + + + + + | Component | Value | Ref Range | Performed At | + + + + + | PROCALCITONIN | 0.16Comment: | <0.5 ng/mL | [facility] | | | INTERPRETIVE | | [...] performed | | | | | at [facility];[address] | | | | | [place] [address] | | | + + + + + + + + + + | Performing | Address | City/State/Zipcode | Phone Number | | Organization | | | | + + + + + | [facility] | [address] | [place] [address] | | + + + + + [...] (L) | 3.3 - 4.8 g/dL | [facility] | | | | | LABORATORY | + + + + + | PHOSPHORUS | 4.6 | 2.3 - 4.8 mg/dL | [facility] | | | | | LABORATORY | + + + + + | EGFR | 20 (L)Comment: GFR <60: | >60 mL/min/1.73m2 | [facility] | | | CHRONIC KIDNEY DISEASE, [...] | | | | | performed at [facility], [address] | | | | | [facility], | | | | | [place] [address] | | | + + + + + + + + + + | Performing | Address | City/State/Zipcode | Phone Number | | Organization | | | | + + + + + | [facility] | [address] | [place] [address] | [phone] | | LABORATORY | Blvd. | | | + + + + + Magnesium (12/31/2018 5:21 AM) + + + + + | Component | Value | Ref Range | Performed At | + + + + + | MAGNESIUM | 2.5 (H)Comment: Testing | 1.7 - 2.4 mg/dL | [facility] | | | performed at [facility], [address] | | LABORATORY | | | [facility], | | | | | [place] [address] | | | + + + + + + + | Specimen | + + | Blood | + + + + + + + | Performing | Address | City/State/Zipcode | Phone Number | | Organization | | | | + + + + + | [facility] | [address] [place] [address] | [place] [address] | [phone] | | LABORATORY | Blvd. | | [...] | [facility] | | | performed at [facility], [address] | | LABORATORY | | | [place]esar Le[place], | | | | | [place] [address] | | | + + + + + + + | Specimen | + + | Blood | + + + + + + + | Performing | Address | City/State/Zipcode | Phone Number | | Organization | | | | + + + + + | [facility] | [address] | [place] [address] | [phone] | | LABORATORY | Blvd. | | [...] MAGDIEL LLOYD | [address] | [place] [address] | | + + + + + [...] | | | | | performed at [facility], [address] | | | | | [facility], | | | | | [place] [address] | | | + + + + + + + + + + | Performing | Address | City/State/Zipcode | Phone Number | | Organization | | | | + + + + + | [facility] | [address] [place] [address] | [place] [address] | [phone] | | LABORATORY | Blvd. | | | + + + + + Magnesium (12/30/2018 5:28 AM) + + + + + | Component | Value | Ref Range | Performed At | + + + + + | MAGNESIUM | 1.9Comment: Testing | 1.7 - 2.4 mg/dL | [facility] | | | performed at [facility], [address] | | LABORATORY | | | [facility], | | | | | [place] [address] | | | + + + + + + + | Specimen | + + | Blood | + + + + + + + | Performing | Address | City/State/Zipcode | Phone Number | | Organization | | | | + + + + + | [facility] | [address] | [place] [address] | [phone] | | LABORATORY | Blvd. | | [...] | [facility] | | | performed at [facility], [address] | | LABORATORY | | | [address]esar [address], | | | | | [place] [address] | | | + + + + + + + | Specimen | + + | Blood | + + + + + + + | Performing | Address | City/State/Zipcode | Phone Number | | Organization | | | | + + + + + | [facility] | [address] | [place] [address] | [phone] | | LABORATORY | Blvd. | | | + + + + + Magnesium (12/29/2018 5:55 AM) + + + + + | Component | Value | Ref Range | Performed At | + + + + + | MAGNESIUM | 1.9Comment: Testing | 1.7 - 2.4 mg/dL | [facility] | | | performed at [facility], [address] | | LABORATORY | | | [facility], | | | | | [place] [address] | | | + + + + + + + | Specimen | + + | Blood | + + + + + + + | Performing | Address | City/State/Zipcode | Phone Number | | Organization | | | | + + + + + | [facility] | [address] | [place] [address] | [phone] | | LABORATORY | Blvd. | | [...] the | | | | | MDRD IDSC traceable | | | | | equation.Testing | | | | | performed at [facility], [address] | | | | | [facility], | | | | | [place] [address] | | | + + + + + + + | Specimen | + + | Blood | + + + + + + + | Performing | Address | City/State/Zipcode | Phone Number | | Organization | | | | + + + + + | [facility] | [address] | [place] [address] | [phone] | | LABORATORY | Blvd. | | [...] | [facility] | | | performed at [facility], [address] | | LABORATORY | | | [address]esar Le[address]va, | | | | | [place] [address] | | | + + + + + + + | Specimen | + + | Blood | + + + + + + + | Performing | Address | City/State/Zipcode | Phone Number | | Organization | | | | + + + + + | [facility] | [address] | [place] [address] | [phone] | | LABORATORY | Blvd. | | [...] Low risk stratification. | | Signed by: Keoyn Gray | | Sign Date/Time: 12/28/2018 1:56 PM | + + + + + + + | Performing | Address | City/State/Zipcode | Phone Number | | Organization | | | | + + + + + | [facility] | [address] | [place] [address] | | + + + + + [place] cardiovascular stress treadmill (12/28/2018 12:54 PM) + + + + + | Component | Value | Ref Range | Performed At | + + + + + | Diagnosis | Non diagnostic | | [facility] E[facility] | | | pharmacological EKG | [...] | + + + + + | [facility] | [address] | [place] [address] | | + + + + + Magnesium (12/28/2018 5:18 AM) + + + + + | Component | Value | Ref Range | Performed At | + + + + + | MAGNESIUM | 1.7Comment: Testing | 1.7 - 2.4 mg/dL | [facility] | | | performed at [facility], [address] | | LABORATORY | | | [place] Le[address], | | | | | [place] [address] | | | + + + + + + + | Specimen | + + | Blood | + + + + + + + | Performing | Address | City/State/Zipcode | Phone Number | | Organization | | | | + + + + + | [facility] | [address] | [place] [address] | [phone] | | LABORATORY | Blvd. | | [...] (H) | 0.70 - 1.30 mg/dL | [facility] | | | | | LABORATORY [...] (L)Comment: GFR <60: | >60 mL/min/1.73m2 | [facility] | | | CHRONIC KIDNEY DISEASE, [...] the | | | | | MDRD IDSC traceable | | | | | equation.Testing | | | | | performed at [facility], [address] | | | | | [facility], | | | | | [place] [address] | | | + + + + + + + | Specimen | + + | Blood | + + + + + + + | Performing | Address | City/State/Zipcode | Phone Number | | Organization | | | | + + + + + | [facility] | [address] | [place] [address] | [phone] | | LABORATORY | Blvd. | | [...] | [facility] | | | performed at [facility], [address] | | LABORATORY | | | [place] Le[place], | | | | | [place] [address] | | | + + + + + + + | Specimen | + + | Blood | + + + + + + + | Performing | Address | City/State/Zipcode | Phone Number | | Organization | | | | + + + + + | [facility] | [address] | [place] [address] | [phone] | | LABORATORY | Blvd. | | | + + + + + Reticulocyte count (12/27/2018 4:43 PM) + + + + + | Component | Value | Ref Range | Performed At | + + + + + | RETICULOCYTES | 1.4Comment: Testing | 0.4 - 2.7 % | [facility] | | | performed at [facility];[address] | | | | | [address];[place] | | | | | [address] | | | + + + + + + + + + + | Performing | Address | City/State/Zipcode | Phone Number | | Organization | | | | + + + + + | [facility] | [address] | [place] [address] | | + + + + + [...] Michael Joshi Date of : 1940 | [facility] | | Performing Physician: Pedrito | RADIOLOGY | | Ca GARZA | | | | | | ------REPORT ADDENDED------ INDICATIONS acute MD | | | CONCLUSIONS 1. This was [...] | | calcified. Aortic Valve: There is xush-xy-tmivbmal aortic | | | regurgitation. Mitral Valve: [...] | | mmHg TR Vmax: 3.49 m/s Application Development Intern: ROSY Authenticated by: | | | Pedrito Taylor MD Report Date/Time: 12-27-2018 13:58:10 | | + + + + + | Procedure Note | + + | Feliz, Rad Results In - 12/27/2018 1:58 PM PDT Patient Name: Kel Joshi of | | : 1940Accession: [id number] Physician: Pedrito Taylor | | MD ------REPORT [...] is mildly calcified. Aortic Valve: There is tlxq-nj-qwzyefzc aortic | | regurgitation.Mitral Valve: Mild mitral [...] mlLAESV Index (A-L): 109.85 ml/m2LAAs A2C: 64.13 [id number] A-L A2C: 351.26 | | mlLALs A2C: 9.93 cmLAAs A4C: 45.52 vu0VLKYQ A-L A4C: 173.98 mlLALs A4C: 10.11 | | cmTAPSE: 1.10 cmHR: 80.22 BPMAV maxP.70 mmHgAV meanP.31 mmHgAV Vmax: | | 1.55 m/Davie Vmean: 1.10 m/Davie VTI: 33.13 cmAVA Vmax: 2.73 cm2AVA (VTI): 2.82 | | am3UDJH Vmax: 0.00 cm2/m2AVAI (VTI): 0.00 cm2/m2LVCI Dopp: 2.84 l/tnia7LPXX Dopp: | | 6.45 l/minHR: 68.91 BPMLVOT [...] |TR Vmax: 3.49 m/s | | | |Application Development Intern: MW | |Authenticated by: Pedrito Taylor MD [...] | + + + + + | [facility] | [address] | [facility] [place] [address] | | + + + + + Troponin I (12/27/2018 7:51 AM) + + + + + | Component | Value | Ref Range | Performed At | + + + + + | TROPONIN I | 0.046 (H)Comment: 0.04 | 0.00 - 0.04 ng/mL | [facility] | | | ng/mL or | [...] performed | | | | | at [facility];[address] | | | | | [address];[place] [address] | | | + + + + + + + | Specimen | + + | Blood | + + + + + + + | Performing | Address | City/State/Zipcode | Phone Number | | Organization | | | | + + + + + | [facility] | [address] | [place] [address] | | + + + + + Brain natriuretic peptide (12/27/2018 5:31 AM) + + + + + | Component | Value | Ref Range | Performed At | + + + + + | BRAIN NATRIURETIC | 471.32 (H)Comment: | 0 - 100 pg/mL | [facility] | | PEPTIDE | Testing performed at | | | | | [facility];[address] | | | | | Blvd;[place] [address] | | | + + + + + + + | Specimen | + + | Blood | + + + + + + + | Performing | Address | City/State/Zipcode | Phone Number | | Organization | | | | + + + + + | [facility] | [address] | [place] [address] | | + + + + + [...] | [facility] | | | performed at [facility], [address] | | LABORATORY | | | [place], | | | | | [place] [address] | | | + + + + + + + | Specimen | + + | Blood | + + + + + + + | Performing | Address | City/State/Zipcode | Phone Number | | Organization | | | | + + + + + | [facility] | [address] | [place] [address] | [phone] | | LABORATORY | Blvd. | | | + + + + + Ferritin (12/27/2018 5:17 AM) + + + + + | Component | Value | Ref Range | Performed At | + + + + + | FERRITIN | 33Comment: Testing | 11 - 450 ng/mL | [facility] | | | performed at [facility], [address] | | LABORATORY | | | [place], | | | | | [place] [address] | | | + + + + + + + | Specimen | + + | Blood | + + + + + + + | Performing | Address | City/State/Zipcode | Phone Number | | Organization | | | | + + + + + | [facility] | [address] | [place] [address] | [phone] | | LABORATORY | Blvd. | | | + + + + + Troponin I (12/27/2018 5:17 AM) + + + + + | Component | Value | Ref Range | Performed At | + + + + + | TROPONIN I | 0.048 (H)Comment: 0.04 | 0.00 - 0.04 ng/mL | [facility] | | | ng/mL or | [...] performed | | | | | at [facility];[address] | | | | | [place] [address] | | | + + + + + + + | Specimen | + + | Blood | + + + + + + + | Performing | Address | City/State/Zipcode | Phone Number | | Organization | | | | + + + + + | [facility] | [address] | [place] [address] | | + + + + + [...] | | | | | performed at [facility], [address] | | | | | [place], | | | | | [place] [address] | | | + + + + + + + | Specimen | + + | Blood | + + + + + + + | Performing | Address | City/State/Zipcode | Phone Number | | Organization | | | | + + + + + | [facility] | [address] | [place] [address] | [phone] | | LABORATORY | [address]. | | | + + + + + TSH (12/27/2018 5:17 AM) + + + + + | Component | Value | Ref Range | Performed At | + + + + + | TSH | 1.500Comment: Testing | 0.450 - 5.100 uIU/mL | [facility] | | | performed at [facility], [address] | | LABORATORY | | | [place], | | | | | [place] [address] | | | + + + + + + + | Specimen | + + | Blood | + + + + + + + | Performing | Address | City/State/Zipcode | Phone Number | | Organization | | | | + + + + + | [facility] | [address] | [place] [address] | [phone] | | LABORATORY | Blvd. | | | + + + + + Lipid panel (12/27/2018 5:17 AM) + + + + + | Component | Value | Ref Range | Performed At | + + + + + | CHOLESTEROL | 108 | <200 mg/dL | [facility] | | | | | LABORATORY | [...] | [facility] | | | performed at [facility], [address] | | LABORATORY | | | [place], | | | | | [place] [address] | | | + + + + + + + | Specimen | + + | Blood | + + + + + + + | Performing | Address | City/State/Zipcode | Phone Number | | Organization | | | | + + + + + | [facility] | [address] | [place] [address] | [phone] | | LABORATORY | Blvd. | | [...] the | | | | | MDRD IDSC traceable | | | | | equation.Testing | | | | | performed at [facility], [address] | | | | | [facility], | | | | | [place] [address] | | | + + + + + + + | Specimen | + + | Blood | + + + + + + + | Performing | Address | City/State/Zipcode | Phone Number | | Organization | | | | + + + + + | [facility] | [address] | [place] [address] | [phone] | | LABORATORY | Blvd. | | | + + + + + Phosphorus (12/27/2018 5:17 AM) + + + + + | Component | Value | Ref Range | Performed At | + + + + + | PHOSPHORUS | 3.2Comment: Testing | 2.3 - 4.8 mg/dL | [facility] | | | performed at [facility], [address] | | LABORATORY | | | [facility], | | | | | [place] [address] | | | + + + + + + + | Specimen | + + | Blood | + + + + + + + | Performing | Address | City/State/Zipcode | Phone Number | | Organization | | | | + + + + + | [facility] | [address] | [place] [address] | [phone] | | LABORATORY | [address]. | | | + + + + + Magnesium (12/27/2018 5:17 AM) + + + + + | Component | Value | Ref Range | Performed At | + + + + + | MAGNESIUM | 2.0Comment: Testing | 1.7 - 2.4 mg/dL | [facility] | | | performed at [facility], [address] | | LABORATORY | | | [place], | | | | | [place] [address] | | | + + + + + + + | Specimen | + + | Blood | + + + + + + + | Performing | Address | City/State/Zipcode | Phone Number | | Organization | | | | + + + + + | [facility] | [address] | [place] [address] | [phone] | | LABORATORY | Blvd. | | [...] [place], | | | | | [place] [address] | | | + + + + + + + | Specimen | + + | Blood | + + + + + + + | Performing | Address | City/State/Zipcode | Phone Number | | Organization | | | | + + + + + | [facility] | [address] | [place] [address] | [phone] | | LABORATORY | Blvd. | | [...] + + + + | Calculated R Carefree | 10 | degrees | [facility] | + + + + + | Calculated T Carefree | 0 | degrees | [facility] [...] | + + + + + | [facility] | [address] | [place] [address] | | + + + + + [...] PDT | | | | | Immunization, Sodus 12/27/18 at | | | | | [...] | | | | | SBP>160, Starting Sodus 12/27/18 at | | | | | [...] 09:36 | | | | | Once, [facility] 01/07/19 at 0730, For 1 | | PDT | | | | | dose | | | | | | + +-------+ +--------+---+---+ +---+---+ | | | +---+---+ + +-------+ +--------+---+---+ | potassium chloride (K-DUR) CR | Given | | 20 mEq | | | | tablet 20 mEq 20 mEq, Oral, | | 9 12:10 | | | | | Once, [facility] 01/07/19 at 1230, For 1 | [...] 12:15 | | | | | Once, [facility] 12/31/18 at 1230, For 1 | [...]
--- OUTSIDE RECORDS SUMMARY | ~2019-03-17 | XMS | Encounter Summary ---
Demographics + + + | Address | [address] | | | [place] [address] | + + + | Home Phone | | + + + | Preferred Language | Unknown | + + + | Marital Status | Single | + + + | Orthodox Affiliation | Unknown | + + + | Race | Unknown | + + + | Ethnic Group | Other Race | + + + Author + + + | Author | [facility] | + + + | Organization | [facility] | + + + | Address | Unknown | + + + | Phone | Unavailable | + + + Support + + +---------+ + | Name | Relationship | Address | Phone | + + +---------+ + | None None | ECON | Unknown | Unavailable | + + +---------+ + Care Team Providers + +------+ + | Care Visitor Services Assistant Name | Role | Phone | + +------+ + PCP | Unavailable | + +------+ + Encounter Details +--------+ + + + + | Date | Type | Department | Care Team | Description | +--------+ + + + + | 01/12/ | Procedure-E | Neurophysiology - | Sy Goodwin, | | | 2007 | CX | EEG [address] | [address] | | | | | Dominique Mail Code: CH8E | [place], [place] | | | | | [facility] | [address] | | | | | and [facility] | [phone] | | | | | floor [place], [place] | | | | | | [address] | | | | | | [phone] | | | +--------+ + + + [...] 1940 Medical | | | Record Number: [id number] Date of Test: 01/13/2008 ROUTINE | | | EEG Done at [facility] The awake background is of [...]
--- OUTSIDE RECORDS SUMMARY | ~2019-03-17 | XMS | Encounter Summary ---
Demographics + + + | Address | [address] | | | [place] [address] | + + + | Home Phone | | + + + | Preferred Language | Unknown | + + + | Marital Status | | + + + | Yarsani Affiliation | Unknown | + + + | Race | Unknown | + + + | Ethnic Group | Unknown | + + + Author + + + | Author | [facility] | + + + | Organization | [facility] | + + + | Address | [...] Providers + +------+ + | Care Line Camera Operator Name | Role | Phone | [...] | | [address] | [place] [address] | Chronic right-sided | | | | [place] [address] | [phone] | heart failure (HCC); | | | | [phone] | | CKD (chronic kidney | | [...] original. Date of Visit: 03/03/19 Name of Junior Designer: Sparkle Romeo MD Chief Complaint Patient presents [...] extremity US: Pacemaker 2006: Guidant 1190, SN [id number] Last time interrogated 02/04/2018 Ventricular paced 41%. [...] [address] | | | | | | [place] [address] | | | | | | [phone] | | | | | | | [...] [place] | | | | | | [address] | | | | | | | | +--------+ + + + + | 09/08/ | Office | Cardiology | Sparkle Romeo, | | | 2019 | Visit | | [address] | | | | | | Dr [address], | | | | | | [place] [address] | | | | | | [phone] | | | | | | | [...]
--- OUTSIDE RECORDS SUMMARY | ~2019-03-17 | XMS | Encounter Summary ---
Demographics + + + | Address | [address] | | | [place] [address] | + + + | Home Phone | | + + + | Preferred Language | Unknown | + + + | Marital Status | | + + + | Uatsdin Affiliation | Unknown | + + + | Race | Unknown | + + + | Ethnic Group | Unknown | + + + Author + + + | Author | [facility] | + + + | Organization | [facility] | + + + | Address | [...] Team Providers + +------+ + | Care Workforce Consultant Name | Role | Phone | [...] | | | | | [place] [address] | | | | | | [phone] | | | +--------+ + + + [...] | | | | | [place] [address] | | | | | | [phone] | | | | | | | [...] [place] | | | | | | [address] | | | | | | | | +--------+ + + + + | 09/08/ | Office | Cardiology | Sparkle Brady, | | | 2018 | Visit | | [address] | | | | | | Dr [address] [place], | | | | | | [place] [address] | | | | | | [phone] | | | | | | | [...] | 02/16/2020 | | | | ml/min ([facility]) | | | | | Essential | | | | | hypertension, benign | | | | | Secondary | | | | | hyperparathyroidism | | | | | ([facility]) | | + +--------+ + + | Renal function panel | Routin | CKD (chronic | Expected: | | | e | kidney disease) | 04/17/2019, Expires: | | | | stage 3, GFR 30-59 | 02/16/2020 | | | | ml/min ([facility]) | | | | | Essential | | | | | hypertension, benign | | | | | Secondary | | | | | hyperparathyroidism | | | | | ([facility]) | | + +--------+ + + | Magnesium | Routin | CKD (chronic | Expected: | | | e | kidney disease) | 04/17/2019, Expires: | | | | stage 3, GFR 30-59 | 02/16/2020 | | | | ml/min ([facility]) | | | | | Essential | [...] | 02/16/2020 | | | | ml/min ([facility]) | | | | | Essential | [...] | 02/16/2020 | | | | ml/min ([facility]) | | | | | Essential | [...] | 02/16/2020 | | | | ml/min ([facility]) | | | | | Essential | | | | | hypertension, benign | | | | | Secondary | | | | | hyperparathyroidism | | | | | ([facility]) | | + +--------+ + + as of this encounter Visit Diagnoses + + | Diagnosis | + + | CKD (chronic kidney disease) stage 3, GFR 30-59 ml/min ([facility]) - Primary | + + | Chronic kidney disease, Stage III (moderate) | + + | Essential hypertension, benign | + + | Secondary hyperparathyroidism (HCC) | + + | Secondary hyperparathyroidism (of renal origin) | + +"
--- OUTSIDE RECORDS SUMMARY | ~2019-03-17 | XMS | Encounter Summary ---
Demographics + + + | Address | [address] | | | [place] [address] | + + + | Home Phone | | + + + | Preferred Language | Unknown | + + + | Marital Status | | + + + | Restorationist Affiliation | Unknown | + + + | Race | Unknown | + + + | Ethnic Group | Unknown | + + + Author + + + | Author | [facility] | + + + | Organization | [facility] | + + + | Address | [...] Team Providers + +------+ + | Care Plow Mechanic Name | Role | Phone | + +------+ + | Kushal Costa MD | PCP | | + +------+ + Encounter Details +--------+ + + + + | Date | Type | Department | Care Team | Description | +--------+ + + + + | 02/12/ | Orders Only | [facility] | Jatinder, | CKD (chronic kidney | | 2019 | | [address] | [address] | disease) stage 3, | | | | [address] | | GFR 30-59 ml/min | | | | [place] [address] | | ([facility]); Essential | | | | [phone] | | hypertension, | | | | | | benign; Hypokalemia | +--------+ + + + + Social [...] | | | | | [place] [address] | | | | | | [phone] | | | | | | | [...] [place] | | | | | | [address] | | | | | | | | +--------+ + + + + | 09/08/ | Office | Cardiology | Sparkle Brady, | | | 2019 | Visit | | [address] | | | | | | Dr [address], | | | | | | [place] [address] | | | | | | [phone] | | | | | | | [...] in this encounter Results Renal function panel (02/11/2019 12:20 PM) + + + + + | [...] + + + | [facility] | [address] | [place] [address] | [phone] | | LABORATORY | [address]vd. | | | + + + + + Magnesium (02/11/2019 12:20 PM) + +-------+ + + | Component [...] + + + | [facility] | [address] | [place] [address] | [phone] | | LABORATORY | Blvd. | | | + + + + + CBC W/Auto Diff (Reflex to Manual) (02/11/2019 12:20 PM) + + + + + | [...] | + + + + + | [facility] | [address] | [place] [address] | [phone] | | LABORATORY | Autumn. | | | + + + + + in this encounter Visit Diagnoses + + | Diagnosis | + + | CKD (chronic kidney disease) stage 3, GFR 30-59 ml/min ([facility]) | + + | Chronic kidney disease, Stage III (moderate) | + + | Essential hypertension, benign | + + | Hypokalemia | + + | Hypopotassemia | + +"
--- OUTSIDE RECORDS SUMMARY | ~2019-03-17 | XMS | Clinical Summary ---
Demographics + + + | Address | [address] | | | [place] [address] | + + + | Home Phone [...] Team Providers + +------+ + | [employer] Supervisor Name | Role | Phone | [...] +--------+ +---------+--------+ | MEDICARE | [employer] | [id number] | 10/20/19 | [phone] | | Medica [...] | Self [birth year] | [address] | | | al/Fam | | 1941 | [phone] | [place] | | | lissy | | | 1 (Home) | [address] | + +--------+ +--------+ + + Advance Directives Patient has advance care planning documents on file. For more information, please contact:Sheryl [facility] [place] [address]
--- OUTSIDE RECORDS SUMMARY | ~2019-03-17 | XMS | Encounter Summary ---
Demographics + + + | Address | [address] | | | [place] [address] | + + + | Home Phone | | + + + | Preferred Language | Unknown | + + + | Marital Status | | + + + | Congregational Affiliation | Unknown | + + + | Race | Unknown | + + + | Ethnic Group | Unknown | + + + Author + + + | Author | [facility] | + + + | Organization | [facility] | + + + | Address | [...] Team Providers + +------+ + | Care Slab Grinder Name | Role | Phone | [...] | | 2019 | on Only | [place] [address] | [address] | | | | | [address] | | | | | | [place] [address] | | | | | | [phone] | | | +--------+ + + + [...] | | | | | [place] [address] | | | | | | [phone] | | | | | | | [...] [place] | | | | | | [address] | | | | | | | | +--------+ + + + + | 09/08/ | Office | Cardiology | Sparkle Brady, | | | 2018 | Visit | | [address] | | | | | | Dr [place], | | | | | | [place] [address] | | | | | | [phone] | | | | | | | | +--------+ + + + + as of this encounter Visit Diagnoses Not on filein this encounter"
--- OUTSIDE RECORDS SUMMARY | ~2019-03-17 | XMS | Encounter Summary ---
Demographics + + + | Address | [address] | | | [place] [address] | + + + | Home Phone | | + + + | Preferred Language | Unknown | + + + | Marital Status | | + + + | Sabianism Affiliation | Unknown | + + + | Race | Unknown | + + + | Ethnic Group | Unknown | + + + Author + + + | Author | [facility] | + + + | Organization | [facility] | + + + | Address [...] Team Providers + +------+ + | Care Order Packer Or Packager Name | Role | Phone | + [...] ) | | | | [place], [place] [address] | | | | | | [phone] | | | +--------+ + + + [...] | | | | | [place] [address] | | | | | | [phone] | | | | | | | [...] [place] | | | | | | [id number] | | | | | | | | +--------+ + + + + | 09/08/ | Office | Cardiology | Sparkle Brady, | | | 2019 | Visit | | MD Jennifer Elizabeth | | | | | | Dr [place], | | | | | | [place] [address] | | | | | | [phone] | | | | | | | | +--------+ + + + + as of this encounter Visit Diagnoses Not on filein this encounter"
--- OUTSIDE RECORDS SUMMARY | ~2019-03-17 | XMS | Encounter Summary ---
Demographics + + + | Address | [address] | | | [place] [address] | + + + | Home Phone | | + + + | Preferred Language | Unknown | + + + | Marital Status | Single | + + + | Yarsanism Affiliation [...] Team Providers + +------+ + | Care Slip Mixer Name | Role | Phone | + [...] | | Dominique Mail Code: CH8E | [place], [place] | | | | | [facility] | [address] | | | | | and [facility] | [phone] | | | | | floor [place], [place] | | | | | | [address] | | | | | | [phone] | | | +--------+ + + + [...] 1940 Medical | | | Record Number: [id number] Date of Test: 01/13/2008 ROUTINE | | | EEG Done at [facility] The awake background is of [...]
--- OUTSIDE RECORDS SUMMARY | ~2019-03-17 | XMS | Encounter Summary ---
Demographics + + + | Address | [address] | | | [place] [address] | + + + | Home Phone | | + + + | Preferred Language | Unknown | + + + | Marital Status | | + + + | Rastafari Affiliation | Unknown | + + + | Race | Unknown | + + + | Ethnic Group | Unknown | + + + Author + + + | Author | [facility] | + + + | Organization | [facility] | + + + | Address | [...] Team Providers + +------+ + | Care Willower Name | Role | Phone | + [...] ml/min | | | | [place] [address] | | ([facility]); Essential | | | | [phone] | | hypertension, | | | | [...] | | | | | [place] [address] | | | | | | [phone] | | | | | | | [...] [place] | | | | | | [address] | | | | | | | | +--------+ + + + + | 09/08/ | Office | Cardiology | Sparkle Brady, | | | 2019 | Visit | | [address] | | | | | | Dr [place], | | | | | | [place] [address] | | | | | | [phone] | | | | | | | [...] + + + | [facility] | [address] | [place] [address] | [phone] | | LABORATORY | [address] | | [...] + + + | [facility] | [address] | [place] [address] | [phone] | | LABORATORY | [address]vd[address] | | [...] | + + + + + | [facility] | [address] | [place] [address] | [phone] | | LABORATORY | [address] | | | + + + + + in this encounter Visit Diagnoses + + | Diagnosis | + + | CKD (chronic kidney disease) stage 3, GFR 30-59 ml/min ([facility]) | + + | Chronic kidney disease, Stage III (moderate) | + + | Essential hypertension, benign | + + | Hypokalemia | + + | Hypopotassemia | + +"
--- OUTSIDE RECORDS SUMMARY | ~2019-03-17 | XMS | Encounter Summary ---
Demographics + + + | Address | [address] | | | [place] [address] | + + + | Home Phone | | + + + | Preferred Language | Unknown | + + + | Marital Status | | + + + | Gnosticist Affiliation | Unknown | + + + | Race | Unknown | + + + | Ethnic Group | Unknown | + + + Author + + + | Author | [facility] | + + + | Organization | [facility] | + + + | Address | [...] Team Providers + +------+ + | Care Secondary School Principal Name | Role | Phone | + [...] [place] | | | | | | [facility] [place] | [place] | | | | | | [address] | [address] Phone: | | | | | | Phone: | [phone] | | | | | | [phone] | Fax: | | | | | | Fax: | [phone] | | | | | | [phone] | | + + + + + + + Encounter Details +--------+ + + + + | Date | Type | Department | Care Team | Description | +--------+ + + + + | 03/01/ | Orders Only | [facility] | Sparkle Brady, | Pacemaker at end of | | 2019 | | Cardiology Mara Benites MD [address] | battery life | | | | [address] | [address] [place], | | | | | [facility] [place] | [place] [address] | | | | | [address] | [phone] | | | | | [phone] | | | +--------+ + + + [...] [place] | | | | | | [place] [address] | | | | | | [phone] | | | | | | | [...] [place] | | | | | | [address] | | | | | | | | +--------+ + + + + | 09/08/ | Office | Cardiology | Sparkle Brady, | | | 2018 | Visit | | [address] | | | | | | Dr [place], | | | | | | [place] [address] | | | | | | [phone] | | | | | | | [...]
[~2019-03-17 18:30] MED LIST changes: +ANUSOL-HC25 MG PR
--- OUTSIDE RECORDS SUMMARY | 2019-03-17 18:34 | XMS ---
PreManage Notification: FROYLAN GARCIA Security Statement Request Clerk Events No recent Security Events currently on file CRITERIA MET - [facility] CARE PROVIDERS AMEE URRUTIA [facility] 09/16/2018-Current PHONE: Unknown AMEE URRUTIA Primary Care Current PHONE: Unknown Adolph Veras MD Primary Care Current PHONE: [phone] ormacie Unger or Cell Biologist Current PHONE: Unknown Jadon has no Care Guidelines for this patient. Care History Medical/Surgical 10/07/2018 [facility] - PATIENT IS CURRENTLY RECEIVING HOME HEALTH SERVICES THRU [facility]. PLEASE CONTACT HOME HEALTH SERVICES AT [phone] WHEN PATIENT IS SEEN IN THE ED. 09/16/2018 [facility] - Patient is currently established with [facility]. If patient is seen in the ED during business hours. Please contact CHWs at [facility]. Care Recommendation: This patient has had [...] providing care. E.D. VISIT COUNT (12 MO.) 5 [facility] TOTAL 5 NOTE: Visits indicate total known visits. ED/UCC VISIT TRACKING (12 MO.) 03/17/2019 18:31 [place] TYPE: Emergency COMPLAINT: - FALL, INJURY 01/14/2019 17:07 [place] TYPE: Emergency COMPLAINT: - RECTAL BLEEDING DIAGNOSES: - Heart failure, unspecified - Other hemorrhoids - manager long term care (current) use of aspirin - Allergy status to other drugs, medicaments and biological substances status - Presence of cardiac pacemaker - Hemorrhage of anus and rectum - Residual hemorrhoidal skin tags - Unspecified atrial fibrillation 12/26/2018 18:44 [facility] [place] TYPE: Emergency COMPLAINT: - VOMITTITNG DIAGNOSES: - Other specified abnormal findings of blood chemistry - Other fci (current) drug therapy - Allergy status to other drugs, medicaments and biological substances status - Heart failure, unspecified - Presence of cardiac pacemaker - manager long term care (current) use of aspirin - Unspecified atrial fibrillation - Weakness 12/08/2018 10:38 [facility] [place] TYPE: Emergency COMPLAINT: - R LEG PAIN,NON INJURY DIAGNOSES: - Heart failure, unspecified - Other terminal clerk (current) drug therapy - Localized edema - Unspecified atrial fibrillation - Cellulitis of right lower limb - snf (current) use of aspirin - Unspecified open wound, right lower leg, initial encounter - Allergy status to other drugs, medicaments and biological substances status 09/16/2018 12:32 AVEL[facility] [place] TYPE: Emergency COMPLAINT: - SWELLING IN LEGS/NON INJURY INPATIENT VISIT TRACKING (12 MO.) [facility] [place] [facility] DIAGNOSES: - Dyspnea - Elevated troponin - Fluid overload, unspecified 09/16/2018 12:33 [facility] [place] TYPE: Medical [...] (nonthermal), right lower leg, initial encounter - snf (current) use of aspirin - Presence of cardiac pacemaker 05/12/2018 08:18 Reynaldo Mand[place] TYPE: Cardiovacular Care Unit DIAGNOSES: - Paroxysmal atrial fibrillation [email or web address]
[2019-03-17] MEDS ORDERED: METOLAZONE10 MG PO (18:49)
[2019-03-17] MEDS ORDERED: TORSEMIDE20 MG PO (18:53)
--- NOTE | 2019-03-17 22:35 | NUR ---
PT ARRIVED TO UNIT VIA STRETCHER FROM ED. PT AAO AND TALKING WITH STAFF. NO ACUTE DISTRESS NOTED. PT ASSISTED ONTO BED DUE TO RIB PAIN AND LIMITED ROM. PACER WITH UNDERLYING AFIB NOTED ON MONITOR. LUNGS CLEAR AND ON ROOM AIR. DENIES NAUSEA. REPORTS INTERMITTEN 1/10 RIGHT SIDE PAIN, STATES TOLERABLE. SEVERAL BRUISES, SCABS, SCRATCHES NOTED THROUGHOUT, PT STATES HX DRY SKIN AND ITCHING. PT ORIENTED TO ROOM. EDUCATION ON CURRENT ILLNES, PLAN OF CARE, SAFTEY, FALL PREVENTION, AND PAIN MANAGEMENT PROVIDED, ALL QUESTIONS ANSWERED.
--- NOTE | 2019-03-17 23:30 | NUR ---
DR. ALDANA AT BEDSIDE TO PLACE MAGNET ON PACEMAKER. HR REMAINS BETWEEN 75-85, TOLERATED WELL. PER DR. ALDANA, REP WILL BE IN TOMORROW MORNING TO ASSESS PACEMAKER, ALL QUESTIONS ANSWERED.
--- NOTE | 2019-03-18 01:30 | NUR ---
NURSE IN ROOM TO MONITOR PT. PT AWAKE IN BED. URINAL EMPTIED. NO ACUTE CHANGES. NO ACUTE DISTRESS. DENIES OTHER NEEDS.
--- NOTE | 2019-03-18 03:15 | NUR ---
PT RESTING WITH EYES CLOSED, RESPIRATIONS EVEN AND UNLABORED, NO ACUTE DISTRESS NOTED.
--- NOTE | 2019-03-18 04:00 | NUR ---
NO ACUTE CHANGES TO ASSESSMENT. PT AWAKENS EASILY. AAOX4 AND RESPONDING APPROPRIATELY. PERRLA BILATERALLY. STRETCH EQUAL BILATERALLY. DENIES N/T. DENIES PAIN. DENIES OTHER NEEDS. CALL LIGHT WITHIN REACH.
--- NOTE | 2019-03-18 06:37 | NUR ---
PT RESTED ON AND OFF THROUGHOUT NIGHT. NEURO CHECKS UNCHANGED AND WNL. PAIN WITHIN TOLERABLE LIMITS. REMAINS IN AFIB WITH SOME PACER SPIKES. LUNGS REMAIN CLEAR AND ON ROOM AIR. VOIDING WELL. INTEGUMENTARY UNCHANGED, SEE DOCUMENTATION. D5 1/2NS WITH 20 MEQ POTASSIUM INFUSING.
--- NOTE | 2019-03-18 07:20 | EKG ---
[facility] [address] [facility] [place] [address] Signed Atrial fibrillation Low voltage QRS Incomplete right bundle branch block Cannot rule out Anteroseptal infarct , age undetermined Abnormal ECG When compared with ECG of 26-DEC-2018 22:07, Atrial fibrillation has replaced Electronic ventricular pacemaker Confirmed by LARA ALDANA MD ([id number]) on 03/18/2019 7:19:54 AM Electronically Signed By: LARA ALDANA MD 03/18/19 0720 PATIENT NAME: FROYLAN GARCIA BERNICE Electrocardiogram DATE OF : 38 PHYSICIAN: LARA ALDANA MD REPORT #: [id number] REPORT IS CONFIDENTIAL AND NOT TO BE RELEASED WITHOUT AUTHORIZATION
--- NOTE | 2019-03-18 08:00 | NUR ---
Assessment completed see flowsheet. Pt awake in bed A&Ox3 on RA. neuro check is WNL at this time. Pt sat up for breakfast. No needs voiced at this time. Will continue to monitor.
--- NOTE | 2019-03-18 10:19 | NUR ---
Rep for pacemaker in to interrogate pacer.
--- NOTE | 2019-03-18 12:09 | NUR ---
Pts assessment unchanged from previous. pts at bedside. All questions answered at this time. Pt sat up for lunch. will continue to monitor
--- NOTE | 2019-03-18 13:44 | NUR ---
Report called to [facility] ER for pt transfer. awaiting transport at this time.
--- NOTE | 2019-03-18 14:04 | NUR ---
Transport here to take pt to [facility] ER. Updated transport on pts condition. Pt transferred via stretcher will all belongings.
--- NOTE | 2019-03-18 14:07 | NUR ---
PT SITTING UP IN BED FINISHING UP LUNCH. WELL, HIS CAKE BUT DIDN'T TOUCH HIS LUNCH. SAID IT WAS TOO MUCH. SEEMS VERY UPBEAT BILL AT BS. PT STATED THAT APPPARENTLY HE IS WAITING FOR INFORMATION TO ARRIVE ABOUT HIS PACEMAKER. BOTH PLEASANT, PT REQUESTED PRAYER. WILL FOLLOW NEEDED
== END 2019-03-18 14:00 | disposition short-term general hospital (02) ==
LOC: ED 18:30 → CCU 18:32
PROVIDERS: ADMIT Internal Medicine
DX: R55 Syncope and collapse (principal); I50.9 Heart failure, unspecified; I48.2 Chronic atrial fibrillation; G47.30 Sleep apnea, unspecified; D64.9 Anemia, unspecified; S81.812A Laceration without foreign body, left lower leg, initial encounter; I87.2 Venous insufficiency (chronic) (peripheral); Z45.018 Encounter for adjustment and management of other part of cardiac pacemaker; W17.89XA Other fall from one level to another, initial encounter; Y92.481 Parking lot as the place of occurrence of the external cause; Z88.8 Allergy status to other drugs, medicaments and biological substances; Z91.19 Patient's noncompliance with other medical treatment and regimen; Z79.82 Long term (current) use of aspirin; Z79.899 Other long term (current) drug therapy
CPT/HCPCS: 36415; 70450; 71045; 71100; 80048; 80053; 81001; 83735; 84484; 85025; 90471; 90715; 93005; 93010; 99285-25; G0378

== ENCOUNTER 2019-08-24 11:13 | Inpatient (IN) | payer MEDICARE ==
[~2019-08-24] VITALS: Ht 167.6 cm; Wt 101.3 kg
--- OUTSIDE RECORDS SUMMARY | ~2019-08-24 | XMS | Encounter Summary ---
Demographics + + + | Address | [address] | | | [place] [address] | + + + | Home Phone | | + + + | Preferred Language | Unknown | + + + | Marital Status | | + + + | Uatsdin Affiliation | 1041 | + + + | Race | Unknown | + + + | Ethnic Group | Unknown | + + + Author + + + | Author | [facility] | | | and [place] | + + + | Organization | [facility] | | | and [place] | + + + | Address | Unknown | + + + | Phone | Unavailable | + + + Support + + +---------+ + | Name | Relationship | Address | Phone | + + +---------+ + | Allegra Joshi | ECON | Unknown | | + + +---------+ + | Carol Garcia | ECON | Unknown | | + + +---------+ + Care Team Providers + +------+ + | Care Food Service Agent Name | Role | Phone | + +------+ + | Kushal Costa MD | PCP | | + +------+ + Encounter Details +--------+---------+ + + + | Date | Type | Department | Care Team | Description | +--------+---------+ + + + | 07/26/ | Office | [facility] | Danny Gandara MD | Anemia of chronic | | 2019 | Visit | [place]ROLOG[place] | [address] | renal failure, stage | | | | [address] | [address] [place], [place] | 3 (moderate) (HCC) | | | | [address] | [address] | (Primary Dx); CKD | | | | [place], [place] | | (chronic kidney | | | | [address] | | disease), stage IV | | | | [phone] | | ([facility]); Electrolyte | | | | | | imbalance risk; | | | | | | Secondary | | | | | | hyperparathyroidism | | | | | | ([facility]); Vitamin D | | | | | | deficiency | +--------+---------+ + + + Social History + +-------+ +--------+------+ | Tobacco Use | Types | Packs/Day | Years | Date | | | | | Used | | + +-------+ +--------+------+ | Never Smoker | | | | | + +-------+ +--------+------+ + +---+---+---+ | Smokeless Tobacco: | | | | | Never Used | | | | + +---+---+---+ + + +---------+ + | Alcohol Use | Drinks/We | oz/Week | Comments | | | ek | | | + + +---------+ + | No | | | Alcoholic Drinks/day: rare | + + +---------+ + + + + | Sex Assigned at | Date Recorded | | | | + + + | Not on file | | + + + + + + + | Job Start Date | Occupation | Industry | + + + + | Not on file | Not on file | Not on file | + + + + + + + + | Travel History | Travel Start | Travel End | + + + + + + | No recent travel history available. | + + documented as of this encounter Last Filed Vital Signs + + + + | Vital Sign | Reading | Time Taken | + + + + | Blood Pressure | 128/90 | 07/26/2019 1009 PDT | + + + + | Pulse | 68 | 07/26/20191008 PDT | + + + + | Temperature | - | - | + + + + | Respiratory Rate | - | - | + + + + | Oxygen Saturation | - | - | + + + + | Inhaled Oxygen | - | - | | Concentration | | | + + + + | Weight | 117.1 kg (258 lb 3.2 | 07/26/20191008 PDT | | | oz) | | + + + + | Height | 167.6 cm (5' 6") | 07/26/2019 1009 PDT | + + + + | Body Mass Index | 41.67 | 07/26/2019 1009 PDT | + + + + documented in this encounter Patient Instructions Patient Instructions Danny Gandara MD - 07/26/2019 10:00 PDTDiscussions/Recommendations: I discussed today with Mr. Joshi the meaning of his severe CKD and the interaction of that with his hypertension & heart failure. I stressed the importance of keeping his BP controlled and avoiding getting dehydrated i f we are to have a chance at helping preserve his renal function. He showed good understand ing. I gave him instructions on how to chart his blood pressure in the appropriate manner at home. He is to call us if they fall outside of the optimal provided range. He will bring his sphygmomanometer for validation once a year. He will strictly abide by a low salt & low purine diet. He will avoid all kinds of NSAIDs for analgesia. Also: I encouraged him to eat 3 good meals a day. I will not change any of his vasoactive meds today. I sent him for a repeat BMP in 2 months. He will report back to me his home BP & Weight readings in 2 months. At that time, I belén l decide whether any change to his vasoactive regimen is warranted. I asked him to elevate his legs for 1.5 hour, once or twice a day. He knows that he stil l needs to be active and ambulatory carefully as possible. He will F/U with the Cardiology team closely. He will F/U with your office regularly. He will have a RFP, Magnesium, CBC, uric acid, iPTH before he comes back in 4 months.Denana ctronically signed by Danny Gandara MD at 07/26/2019 10:42 PDT documented in this encounter Progress Notes Danny Gandara MD - 07/26/2019 1000 PDT Patient Active Problem List Diagnosis Date Noted POA Pacemaker 07/08/2019 Unknown Wound, open, leg 03/18/2019 Unknown Anemia of chronic renal failure, stage 3 (moderate) 02/15/2019 Unknown Chronic diastolic heart failure 12/27/2018 Unknown Pulmonary hypertension 12/27/2018 Unknown Right heart failure 12/27/2018 Unknown Electrolyte imbalance risk 07/06/2018 Unknown Low back pain, unspecified back pain laterality, unspecified chronicity, with sciatica presence unspecified 06/11/2018 Unknown DDD (degenerative disc disease), lumbar 06/11/2018 Unknown Lumbar radiculopathy 06/11/2018 Unknown Spinal stenosis at L4-L5 level 06/11/2018 Unknown GI bleeding 03/10/2018 Unknown NEETU (obstructive sleep apnea) 03/10/[address] Costa: I saw your patient Mr. Joshi in the office on an urgent basis in F/U Today: He's been b attling a cold (since early 06/2019), not eating well at all but been keeping up with the wa ter intake, he claims. Has had darker urine; now having to go only once at night vs the usua l 2 or 3 times. As you are familiar with his case, I will not state his past history in detail. Briefly, alannah palacios is a 78 y.o. male patient with past history as delineated above; he is here to F/U on his CKD & its associated complications. He tells me he had CKD since ~2006; his GFR went down: eGFR of 27 on 10/21/17. He's had fluctuations in his weight over the years, especially when his diuretic dosing is drastically changed. He was hospitalized in early 12/2018 with volume overload; he was IV diuresed & lost ~30 lb s & felt better. He was hospitalized in early 09/2018 with volume overload; he was IV diuresed & lost ~20 lb s & felt better. The patient has history of hypertension since ; his BP control has been reportedly ad equate. He denies any history of prolonged exposure to NSAIDs or recent exposure to known ne phrotoxins. he denies any recurrent nephrolithiasis or pyelonephritis. He tells me that he's had no history of urinary retention, gross hematuria or dysuria; he has no incontinence sy mptoms. No symptoms of UTI. No history of frequency, nocturia, weak urinary stream, hesitanc y, intermittence, incomplete emptying or urgency; he usually has 2-3 times nightly nocturia . No history of passing kidney stones. he has no foamy urine either. his baseline Creatinin e is TBD. There is no family history of renal genetic diseases such as PKD. He says that he feels 'good ' today. He denies any blurred vision tinnitus, headache, feve r, chills, or cough. No nausea, vomiting, abdominal pain, diarrhea, melena, or hematochezia . No chest pain, palpitation, dizziness, loss of consciousness, orthopnea, paroxysmal noctu rnal dyspnea; he has chronic leg edema. The following portions of the patient's history were reviewed and updated as appropriate: a llergies, current medications, past medical history, past social history, past surgical hist ory, family history and problem list. *I also reviewed with him the records from his 02/2019 hospitalization for syncope, includi ng the discharge summary. As in History of Present Illness & in Assessment. All the pertinent systems were reviewed a nd were otherwise negative. Current Outpatient Medications: allopurinol (ZYLOPRIM) 100 mg tablet, Take 2 tablets by mouth daily., Disp: , Rfl: ascorbic acid (VITAMIN C) 500 MG tablet, Take 500 mg by mouth daily., Disp: , Rfl: aspirin 81 mg EC tablet, Take 81 mg by mouth Daily., Disp: , Rfl: atorvaSTATin (LIPITOR) 20 mg tablet, Take 20 mg by mouth daily., Disp: , Rfl: cholecalciferol (VITAMIN D-3) 1,000 units tablet, Take 1,000 Units by mouth Daily., Di sp: , Rfl: metOLazone 5 MG tablet, Take 1 tablet by mouth daily., Disp: , Rfl: metoprolol tartrate (LOPRESSOR) 50 mg tablet, Take 50 mg by mouth 2 times daily., Disp : , Rfl: PARoxetine (PAXIL) 20 mg tablet, Take 20 mg by mouth every morning., Disp: , Rfl: potassium chloride (KLOR-CON) 10 MEQ ER tablet, Take 10 mEq by mouth 2 (two) times maryam ly with meals., Disp: , Rfl: torsemide (DEMADEX) 20 mg tablet, Take 40 mg by mouth daily., Disp: , Rfl: Physical Exam: BP 128/90 | Pulse 68 | Ht 1.676 m (5' 6") | Wt 117.1 kg (258 lb 3.2 oz) | BMI 41.67 kg/ m General appearance: Pleasant, not in acute distress. Neck: Supple without tracheal deviation or jugular venous distension. Head and ENT: Head is atraumatic. The oropharynx is without erythema or thrush. Eyes: Anicteric. The extraocular muscle movements are normal. Lungs: Bibasilar fine crackles. There are no wheezes. Heart: Regular rate and rhythm without any rub, gallop. No murmur. Abdominal exam: Obese. Soft and nontender with normal bowel sounds. Musculoskeletal: No costovertebral angle tenderness bilaterally. Extremities: Warm to touch with 2+ pitting edema bilaterally.There is no cyanosis. Skin: There are no rashes, petechiae; ecchymosis on arms. Neurological: Awake, alert, and oriented to time, place, and person. Normal gross motor po wer. There is no asterixis. Psychiatric: The patient s behavior is normal. Judgment and thought content are normal. *I also reviewed with him his labs from 07/23/19.* Lab Results Component Value Date BUN 47 (A) 04/17/2019 CREATININE 2.20 (A) 04/17/2019 EGFR 29 (A) 04/17/2019 NA 139 04/17/2019 K 3.5 (A) 04/17/2019 CL 9 (A) 04/17/2019 CO2 29 04/17/2019 CA 9.1 04/17/2019 PHOS 3.2 04/17/2019 MG 1.8 04/17/2019 ALB 3.7 04/17/2019 HGB 10.7 (A) 04/17/2019 URICACID 8.2 (A) 04/17/2019 WBC 9.2 04/17/2019 HCT 32.9 (A) 04/17/2019 FERRITIN 33 12/27/2018 LABIRON 12 (L) 12/27/2018 LABPROT 286.2 (A) 11/20/2018 QULK29MHTVM 41 06/29/2018 Assessment: Mr. Joshi is a 78 y.o. male patient with stage IV CKD on a background of longstanding hy pertension & chronic heart failure with severe pulmonary hypertension. RENAL FUNCTION: GFR fluctuates with diuresis BLOOD PRESSURE: Reports it controlled at home BLOOD SUGAR: Reports it normal ELECTROLYTES: Mild hypokalemia (from loop diuresis) is better ANEMIA: Mild VITAMIN D: Deficiency is being treated PARATHYROID HORMONE: Mildly up for him URIC ACID: Hyperuricemia is better with Alopurinol PROTEINURIA: Mild URINALYSIS: No UTI or hematuria on repeated testing VOLUME STATUS: Euvolumic PERIPHERAL EDEMA: Still severe; chronic Discussions/Recommendations: I discussed today with Mr. Joshi the meaning of his severe CKD and the interaction of that with his hypertension & heart failure. I stressed the importance of keeping his BP controlled and avoiding getting dehydrated i f we are to have a chance at helping preserve his renal function. He showed good understand ing. I gave him instructions on how to chart his blood pressure in the appropriate manner at home. He is to call us if they fall outside of the optimal provided range. He will bring his sphygmomanometer for validation once a year. He will strictly abide by a low salt & low purine diet. He will avoid all kinds of NSAIDs for analgesia. Also: I encouraged him to eat 3 good meals a day. I will not change any of his vasoactive meds today. I sent him for a repeat BMP in 2 months. He will report back to me his home BP & Weight readings in 2 months. At that time, I belén l decide whether any change to his vasoactive regimen is warranted. I asked him to elevate his legs for 1.5 hour, once or twice a day. He knows that he stil l needs to be active and ambulatory carefully as possible. He will F/U with the Cardiology team closely. He will F/U with your office regularly. He will have a RFP, Magnesium, CBC, uric acid, iPTH, 25-OH D before he comes back in 4 m [facility]. Thank you Dr Costa for the opportunity to see this patient in F/U on an urgent basis tod ay as we are trying to prevent a hospitalization for severe electrolyte imbalance &/or sever e volume extremes. Please do not hesitate to call me at any time with questions or concerns. Truly yours, Danny Gandara MD [facility] documented in this encount er Plan of Treatment +--------+ + + + + | Date | Type | Specialty | Care Team | Description | +--------+ + + + + | 09/08/ | Office | Cardiology | Sparkle Brady, | | | 2018 | Visit | | MD Jennifer GRIFFITH | | | | | | [place] | | | | | | [address] | | | | | | | | +--------+ + + + + | 10/11/ | Procedure | Cardiology | | | 2018 | visit | | | | +--------+ + + + + | 11/29/ | Office | Nephrology | Danny Gandara MD | | | 2019 | Visit | | [address] | | | | | | [address] [place] | | | | | | [address] | | | | | | | | +--------+ + + + + | 01/09/ | Procedure | Cardiology | | | | 2019 | visit | | | | +--------+ + + + + | 04/10/ | Procedure | Cardiology | | | | 2019 | visit | | | | +--------+ + + + + documented as of this encounter Visit Diagnoses + + | Diagnosis | + + | Anemia of chronic renal failure, stage 3 (moderate) (HCC) - Primary | + + | CKD (chronic kidney disease), stage IV (HCC) Chronic kidney disease, Stage IV | | (severe) | + + | Electrolyte imbalance risk Other specified conditions influencing health status | + + | Secondary hyperparathyroidism (HCC) Secondary hyperparathyroidism (of renal origin) | + + | Vitamin D deficiency Unspecified vitamin D deficiency | + + documented in this encounter
--- OUTSIDE RECORDS SUMMARY | ~2019-08-24 | XMS | Clinical Summary ---
Demographics + + + | Address | [address] | | | [place] [address] | + + + | Home Phone | | + + + | Preferred Language | Unknown | + + + | Marital Status | Single | + + + | Gnosticist Affiliation | Unknown | + + + | Race | Unknown | + + + | Ethnic Group | Other Race | + + + Author + + + | Author | [facility]VEN[facility] LOC[facility] | + + + | Organization | NON REVENUE LOCATIONS | + + + | Address | Unknown | + + + | Phone | Unavailable | + + + Support + + +---------+ + | Name | Relationship | Address | Phone | + + +---------+ + | None None | ECON | Unknown | Unavailable | + + +---------+ + Care Team Providers + +------+ + | Care Creche Attendant Name | Role | Phone | + +------+ + PCP | Unavailable | + +------+ + Source Comments [facility] is fully live on both [facility] and [facility] InPatient[facility] Allergies Not on File Medications Not on file Active Problems Not on file Social History + +-------+ +--------+------+ | Tobacco Use | Types | Packs/Day | Years | Date | | | | | Used | | + +-------+ +--------+------+ | Never Assessed | | | | | + +-------+ +--------+------+ + + + | Sex Assigned at [...] recent travel history available. | + + Last Filed Vital Signs Not on file Plan of Treatment + + + + + | Health Maintenance | Due Date | Last Done | Comments | + + + + + | Pneumococcal | | | | | vaccination (1 of 2 | 5 | | | | - PCV13) | | | | + + + + + | Influenza (Flu) | | | | | vaccination (#1) | 9 | | | + + + + + Results Not on filefrom Last 3 Months"
--- OUTSIDE RECORDS SUMMARY | ~2019-08-24 | XMS | Encounter Summary ---
Demographics + + + | Address | [address] | | | [place] [address] | + + + | Home Phone | | + + + | Preferred Language | Unknown | + + + | Marital Status | | + + + | Baptism Affiliation | 1041 | + + + [...] Team Providers + +------+ + | Care Train Brake Operator Name | Role | Phone | + +------+ + | Kushal Costa MD | PCP | | + +------+ + Encounter Details +--------+ + + + + | Date | Type | Department | Care Team | Description | +--------+ + + + + | 07/26/ | Documentati | [facility] | Tobias, | | | 2019 | on | NEPHROLOGY [place] | Bandar Cannon | | | | | [address] | [employer] | | | | | [address] [facility] [place] | | | | | | [address] | | | | | | [phone] | | | +--------+ + + + [...] Cardiology | Sparkle Brady, | | | 2019 | Visit | | MD Jennifer GRIFFITH | | | | | | [place], [place] | | | | | | [address] | | | | | | | | +--------+ + + + + | 10/11/ | Procedure | Cardiology | | | | 2018 | visit | | | | +--------+ + + + + | 11/29/ | Office | Nephrology | Danny Gandara MD | | | 2019 | Visit | | [address] [place] | | | | | | [address] [place] | | | | | | [address] | | | | | | | [...] | + +--------+ + + + | EXTERNAL LAB: [facility], | Routin | 07/23/2019 | | Results for this | | INTACT | e | | | procedure are in the | | | | | | results section. | + +--------+ + + + | CBC W/AUTO | Routin | 07/23/2019 | | Results for this | | DIFFERENTIAL | e | | | procedure are in the | | | | | | results section. | + +--------+ + + + | URIC ACID | Routin | 07/23/2019 | | Results for this | | | e | | | procedure are in the | | | | | | results section. | + +--------+ + + + | MAGNESIUM | Routin | 07/23/2019 | | Results for this | | | e | | | procedure are in the | | | | | | results section. | + +--------+ + + + | RENAL FUNCTION PANEL | Routin | 07/23/2019 | | Results for this | | | e | | | procedure are in the | | | | | | results section. | + +--------+ + + + documented in this encounter Results Uric Acid (07/23/2019) + +-------+ + + + | Component | Value | Ref Range | Performed | Pathologist | | | | | At | Signature | + +-------+ + + + | URIC ACID | 7 | 4.4 - 7.6 | | | | (REF) | | | | | + +-------+ + + + + + | Specimen | + + | Blood | + + Renal Function Panel (07/23/2019) + + + + + + | Component | Value | Ref Range | Performed | Pathologist | | | | | At | Signature | + + + + + + | Na | 138 | 132 - 143 | | | | | | mmol/L | | | + + + + + + | K | 3.9 | 3.6 - 5.1 | | | | | | mmol/L | | | + + + + + + | Cl | 100 | 95 - 112 mmol/L | | | + + + + + + | CO2 | 25 | 19 - 31 mmol/L | | | + + + + + + | Anion Gap | 17 | 7 - 21 mmol/L | | | + + + + + + | Glucose | 81 | 70 - 100 mg/dL | | | + + + + + + | BUN | 48 (A) | 6 - 23 mg/dL | | | + + + + + + | Creatinine | 2.33 (A) | 0.70 - 1.18 | | | | | | mg/dL | | | + + + + + + | Estimated | 27.0 (A) | 60.0 - 140.0 | | | | GFR | | mL/min/1.73m2 | | | + + + + + + | BUN/Creatin | 20.6 | 6.0 - 28.6 | | | | ine Ratio | | | | | + + + + + + | Albumin | 3.5 | 3.5 - 5.0 g/dL | | | + + + + + + | Calcium | 9.1 | 8.5 - 10.3 | | | + + + + + + | PHOSPHORUS | 3.4 | 2.5 - 5.0 | | | + + + + + + + + | Specimen | + + | Blood | + + Magnesium (07/23/2019) + +-------+ + + + | Component | Value | Ref Range | Performed | Pathologist | | | | | At | Signature | + +-------+ + + + | MG | 1.8 | 1.7 - 2.5 | | | + +-------+ + + + + + | Specimen | + + | Blood | + + CBC w/ Auto Differential (07/23/2019) + + + + + + | Component | Value | Ref Range | Performed | Pathologist | | | | | At | Signature | + + + + + + | WBC | 6.7 | 4.5 - 11.0 | | | + + + + + + | RBC COUNT | 3 (A) | 4 - 6 | | | + + + + + + | Hemoglobin | 10.1 (A) | 13.5 - 18.0 | | | + + + + + + | Hematocrit, | 31.5 (A) | 41 - 50 | | | | BF | | | | | + + + + + + | Platelet | 240 | 140 - 440 | | | | Count | | | | | | Plasma | | | | | + + + + + + | NEUTROPHILS | 72.9 | 39 - 80 % | | | | BL | | | | | + + + + + + | LYMPHOCYTES | 5.3 (A) | 24 - 44 % | | | | BL | | | | | + + + + + + | MONOCYTES | 6.2 | 0 - 12 | | | | BAL | | | | | + + + + + + | MCV | 90.3. | 81 - 99 | | | + + + + + + | RDW | 18.8 (A) | 10.5 - 15.0 | | | + + + + + + | MCH | 29 | 27 - 33 | | | + + + + + + | MCHC, POC | 32 | 30 - 36 | | | + + + + + + | EOSINOPHILS | 14.4 (A) | 0 - 6 % | | | | BL | | | | | + + + + + + | BASOPHILS | 1.2 | 0 - 2 | | | | BAL | | | | | + + + + + + + + | Specimen | + + | Blood | + + External Lab: PTH, Intact (07/23/2019) + + + + + + | Component | Value | Ref Range | Performed | Pathologist | | | | | At | Signature | + + + + + + | PTH Intact, | 149.7 (A) | 15 - 65 | | | | External | | | | | + + + + + + + + | Specimen | + + | | + + documented in this encounter Visit Diagnoses Not on filedocumented in this encounter"
--- OUTSIDE RECORDS SUMMARY | ~2019-08-24 | XMS | Encounter Summary ---
Demographics + + + | Address | [address] | | | [place] [address] | + + + | Home Phone | | + + + | Preferred Language | Unknown | + + + | Marital Status | Single | + + + | Zoroastrian Affiliation | Unknown | + + + | Race | Unknown | + + + | Ethnic Group | Other Race | + + + Author + + + | Author | [facility] | + + + | Organization | [facility] | + + + | Address | Unknown | + + + | Phone | Unavailable | + + + Support + + +---------+ + | Name | Relationship | Address | Phone | + + +---------+ + | None None | ECON | Unknown | Unavailable | + + +---------+ + Care Team Providers + +------+ + | Care Trailers And Motor Homes Salesperson Name | Role | Phone | + +------+ + PCP | Unavailable | + +------+ + Encounter Details +--------+ + + + + | Date | Type | Department | Care Team | Description | +--------+ + + + + | 01/13/ | Documentati | Neurology at | Sy Goodwin, | | | 2007 | on | [facility] & | MD Angelse Fox | | | | | [address] | [place], [place] | | | | | Rj Fox Mailcode: | [address] | | | | | [facility] | [phone] | | | | | Health and Healing, | | | | | | | | | | | | [place], [place] | | | | | | [address] | | | | | | [phone] | | | +--------+ + + + [...] as of this encounter Plan of Treatment Not on filedocumented as of this encounter Visit Diagnoses Not on filedocumented in this encounter"
--- OUTSIDE RECORDS SUMMARY | ~2019-08-24 | XMS | Encounter Summary ---
Demographics + + + | Address | [address] | | | [place] [address] | + + + | Home Phone | | + + + | Preferred Language | Unknown | + + + | Marital Status | Single | + + + | Cheondoism Affiliation | Unknown | + + + | Race | Unknown | + + + | Ethnic Group | Other Race | + + + Author + + + | Author | [facility] | + + + | Organization | [facility] | + + + | Address | Unknown | + + + | Phone | Unavailable | + + + Support + + +---------+ + | Name | Relationship | Address | Phone | + + +---------+ + | None None | ECON | Unknown | Unavailable | + + +---------+ + Care Team Providers + +------+ + | Care Passport Application Examiner Name | Role | Phone | [...] | | | Ave Mailcode: [address] | [place], [place] | | | | | [facility] | [address] | | | | | and Healing, | [phone] | | | | | [facility] | | | | | | Floor [place], [place] | | | | | | [address] | | | | | | [phone] | | | +--------+ + + + [...] 1940 Medical | | | Record Number: [id number] Date of Test: 01/13/2008 ROUTINE EEG | | | Done at [facility] The awake background is of low | [...]
--- OUTSIDE RECORDS SUMMARY | ~2019-08-24 | XMS | Encounter Summary ---
Demographics + + + | Address | [address] | | | [place] [address] | + + + | Home Phone | | + + + | Preferred Language | Unknown | + + + | Marital Status | | + + + | Church Affiliation | 1041 | + + + | Race | Unknown | + + + | Ethnic Group | Unknown | + + + Author + + + | Author | [facility] | | | and [place] | + + + | Organization | [facility] | | | [...] Team Providers + +------+ + | Care Binding Folder Machine Name | Role | Phone | + +------+ + | Kushal Costa MD | PCP | | + +------+ + Encounter Details +--------+ + + + + | Date | Type | Department | Care Team | Description | +--------+ + + + + | 07/26/ | Orders Only | [facility] | Danny Gandara MD | CKD (chronic kidney | | 2019 | | NEPHROLOGY [place] | [address] [place] | disease), stage IV | | | | [address] [place] | [address] [place], [place] | ([facility]) (Primary Dx) | | | | [address] [place], [place] | [address] | | | | | [address] | | | | | | [phone] | | | +--------+ + + + [...] [place] | | | | | | [address] | | | | | | | | +--------+ + + + + | 10/11/ | Procedure | Cardiology | | | | 2018 | visit | | | | +--------+ + + + + | 11/29/ | Office | Nephrology | Danny Gandara MD | | | 2019 | Visit | | [address] [facility] [facility] | | | | | | [address] [place] | | | | | | [address] | | | | | | | [...] | + +--------+ + + | Basic Metabolic Panel | Routin | CKD (chronic | Expected: | | | e | kidney disease), | 09/25/2019, Expires: | | | | stage IV (HCC) | 07/26/2020 | + +--------+ + + | Renal Function Panel | Routin | CKD (chronic | Expected: | | | e | kidney disease), | 10/26/2019, Expires: | | | | stage IV (HCC) | 07/26/2020 | + +--------+ + + | Magnesium | Routin | CKD (chronic | Expected: | | | e | kidney disease), | 10/26/2019, Expires: | | | | stage IV (HCC) | 07/26/2020 | + +--------+ + + | CBC with Differential | Routin | CKD (chronic | Expected: | | | e | kidney disease), | 10/26/2019, Expires: | | | | stage IV (HCC) | 07/26/2020 | + +--------+ + + | Uric Acid | Routin | CKD (chronic | Expected: | | | e | kidney disease), | 10/26/2019, Expires: | | | | stage IV (HCC) | 07/26/2020 | + +--------+ + + | Parathyroid Hormone, Intact | Routin | CKD (chronic | Expected: | | | e | kidney disease), | 10/26/2019, Expires: | | | | stage IV (HCC) | 07/26/2020 | + +--------+ + + documented as of this encounter Visit Diagnoses + + | Diagnosis | + + | CKD (chronic kidney disease), stage IV (HCC) - Primary Chronic kidney disease, Stage | | IV (severe) | + + documented in this encounter"
--- OUTSIDE RECORDS SUMMARY | ~2019-08-24 | XMS | Encounter Summary ---
Demographics + + + | Address | [address] | | | [place] [address] | + + + | Home Phone | | + + + | Preferred Language | Unknown | + + + | Marital Status | | + + + | Islam Affiliation | 1041 | + + + | Race | Unknown | + + + | Ethnic Group | Unknown | + + + Author + + + | Author | [facility] | | | and [place] | + + + | Organization | [facility] | | | [...] Team Providers + +------+ + | Care Field Service Tech Name | Role | Phone | + +------+ + | Kushal Costa MD | PCP | | + +------+ + Encounter Details +--------+ + + + + | Date | Type | Department | Care Team | Description | +--------+ + + + + | 07/26/ | Documentati | [facility] | Tobias, | | | 2019 | on | NEPHROLOGY [place] | Bandar Cannon | | | | | [address] [place] | Group Fitness Manager | | | | | [address] [facility] [place] | | | | | | [address] | | | | | | [phone] | | | +--------+ + + + [...] | | | | | [place], [place] | | | | | | [address] | | | | | | | [...] [place] | | | | | | [address] | | | | | | | [...]
--- OUTSIDE RECORDS SUMMARY | ~2019-08-24 | XMS | Encounter Summary ---
Demographics + + + | Address | [address] | | | [place] [address] | + + + | Home Phone | | + + + | Preferred Language | Unknown | + + + | Marital Status | | + + + | Hoahaoism Affiliation | 1041 | + + + | Race | Unknown | + + + | Ethnic Group | Unknown | + + + Author + + + | Author | [facility] | | | and [place] | + + + | Organization | [facility] | | | [...] Team Providers + +------+ + | Care Online Marketing Strategist Name | Role | Phone | + +------+ + | Kushal Costa MD | PCP | | + +------+ + Encounter Details +--------+ + + + + | Date | Type | Department | Care Team | Description | +--------+ + + + + | 07/26/ | Orders Only | [facility] | Danny Gandara MD | CKD (chronic kidney | | 2019 | | NEPHROLOGY [place] | [address] [place] | disease), stage IV | | | | [address] [place] | [address] [place], [place] | ([facility]) (Primary Dx) | | | | [address] [place], [place] | [address] | | | | | [address] | | | | | | [phone] | | | +--------+ + + + [...] [place] | | | | | | [address] | | | | | | | | +--------+ + + + + | 10/11/ | Procedure | Cardiology | | | | 2018 | visit | | | | +--------+ + + + + | 11/29/ | Office | Nephrology | Danny Gandara MD | | | 2019 | Visit | | [address] [facility] | | | | | | [address] [place] | | | | | | [address] | | | | | | | [...]
--- OUTSIDE RECORDS SUMMARY | ~2019-08-24 | XMS | Clinical Summary ---
Demographics + + + | Address | [address] | | | [place] [address] | + + + | Home Phone | | + + + | Preferred Language | Unknown | + + + | Marital Status | | + + + | Roman Catholic Affiliation | 1041 | + + + | Race | Unknown | + + + | Ethnic Group | Unknown | + + + Author + + + | Author | [facility] (Historical as of | | | 06-05-19) | + + + | Organization | [facility] (Historical as of | | | 06-05-19) [...] Team Providers + +------+ + | Care Tearer Name | Role | Phone | + [...] of chronic renal failure, stage 3 (moderate) ([facility]) | 02/15/2019 | + + + | Pulmonary hypertension ([facility]) | 12/27/2018 | + + + | Right heart failure ([facility]) | 12/27/2018 | + + + [...] disease) stage 3, GFR 30-59 ml/min ([facility]) | 10/27/2017 | + + + [...] + | IZZY (acute kidney injury) ([facility]) | 01/07/20 | | | | [...] + + + + Plan of Treatment +--------+---------+ + + + | Date | Type | Specialty | Care Team | Description | +--------+---------+ + + + | 09/08/ | Office | | Alsamara, M[place], | | | 2019 | Visit | | MD Jennifer Elizabeth | | | | | | Dr [place], | | | | | | [place] [address] | | | | | | [phone] | | | | | | | | +--------+---------+ + + + + + + + [...] | | SCIENTIFIC | | 2021 | /[id number] | | on 03/19/2019 by Caitlyn, | | | KATARZYNA - TATY | | | 1 | | MD [...] +------+-------+ + | MEDICARE | MEDICA | [id number] | | | [address] | | | RE | | | | [place] [address] | | | IP-OP | | | [...] Self | [birth year] | Home: | [address] | | | al/Fam | | 1941 | [phone] | [place] | | | [place] | | | [address] | [address] | + +--------+ +--------+ + +
--- OUTSIDE RECORDS SUMMARY | ~2019-08-24 | XMS | Clinical Summary ---
Demographics + + + | Address | [address] | | | [place] [address] | + + + | Home Phone | | + + + | Preferred Language | Unknown | + + + | Marital Status | Single | + + + | Quaker Affiliation | Unknown | + + + [...] Providers + +------+ + | Care Metal Organ Pipe Maker Name | Role | Phone | + +------+ + PCP | Unavailable | + +------+ + Source Comments [facility] is fully live on both [facility] Ambulatory and [facility] InPatient.[facility] Allergies Not on File Medications Not on [...]
--- OUTSIDE RECORDS SUMMARY | ~2019-08-24 | XMS | Encounter Summary ---
Demographics + + + | Address | [address] | | | [place] [address] | + + + | Home Phone [...] Team Providers + +------+ + | Care Warehouse Person Name | Role | Phone | + +------+ + | Kushal Costa MD | PCP | | + +------+ + Encounter Details +--------+---------+ + + + | Date | Type | Department | Care Team | Description | +--------+---------+ + + + | 07/26/ | Office | [facility] | Danny Gandara MD | Anemia of chronic | | 2019 | Visit | NEPHROLOGY [place] | [address] [facility] [address] [facility] | renal failure, stage | | | | [address] | [address] [place], [place] | 3 (moderate) (HCC) | | | | [address] [place] [address] | [address] | (Primary Dx); CKD | | | | [place], [place] | | (chronic kidney | | | | [address] | | disease), stage IV | | | | [phone] | | ([facility]); Electrolyte | | | | | | imbalance risk; | | | | | | Secondary | | | | | | hyperparathyroidism | | | | | | ([facility]); Vitamin D | | | | [...] 12 (L) 12/27/2018 LABPROT 286.2 (A) 11/20/2018 [id number] 41 06/29/2018 Assessment: Mr. Joshi is a [...] before he comes back in 4 m [facility]. Thank you Dr Costa for the opportunity to see this patient in F/U on an urgent basis tod ay as we are trying to prevent a hospitalization for severe electrolyte imbalance &/or sever e volume extremes. Please do not hesitate to call me at any time with questions or concerns. Truly yours, Danny Gandara MD [facility] documented in this encount er Plan [...] [place] | | | | | | [address] | | | | | | | | +--------+ + + + + | 10/11/ | Procedure | Cardiology | | | 2018 | visit | | | | +--------+ + + + + | 11/29/ | Office | Nephrology | Danny Gandara MD | | | 2019 | Visit | | [address] [facility] | | | | | | [address] [place] | | | | | | [address] | | | | | | | [...]
--- OUTSIDE RECORDS SUMMARY | ~2019-08-24 | XMS | Clinical Summary ---
Demographics + + + | Address | [address] | | | [place] [address] | + + + | Home Phone | | + + + | Preferred Language | Unknown | + + + | Marital Status | | + + + | Mandaen Affiliation | 1041 | + + + | Race | Unknown | + + + | Ethnic Group | Unknown | + + + Author + + + | Author | [facility] | | | and [place] | + + + | Organization | [facility] | | [...] Team Providers + +------+ + | Care Cutter Helper Name | Role | Phone | [...] e | + + + +---------+------+------+-------+ | simvastatin | Take 20 mg by mouth | | 0 | | 10/0 | Disco | | (ZOCOR) 20 mg tablet | Daily. | | | | 7/20 | ntinu | | | | | | | 19 | ed | + + + +---------+------+------+-------+ | metOLazone | 1 tablet Orally one | | 0 | | 10/0 | Disco | | (ZAROXOLYN) 5 MG | hour before | | | | 7/20 | ntinu | | tablet | torsemide | | | | 19 | ed | + + + +---------+------+------+-------+ | amLODIPine | Take 5 mg by mouth | | 0 | | 10/0 | Disco | | (NORVASC) 5 mg | Daily. | | | | 7/20 | ntinu | | tablet | | | | | 19 | ed | + + + +---------+------+------+-------+ | PARoxetine (PAXIL) | Take 20 mg by mouth | | 0 | | 10/0 | Disco | | 20 mg tablet | Daily. | | | | 7/20 | ntinu | | | | | | | 19 | ed | + + + +---------+------+------+-------+ | mometasone | Apply 1 Application | | 0 | | 10/0 | Disco | | (ELOCON) 0.1 % cream | topically Daily. | | | | 7/20 | ntinu | | | | | | | 19 | ed | + + + +---------+------+------+-------+ | | Take 1 tablet by | | 0 | | 10/0 | Disco | | HYDROcodone-acetamin | mouth every 6 hours | | | | 7/20 | ntinu | | ophen (NORCO) | as needed. | | | | 19 | ed | | 7.5-325 mg per | | | | | | | | tablet | | | | | | | + + + +---------+------+------+-------+ | Bioflavonoid | Take by mouth. | | 0 | | 10/0 | Disco | | Products (VITAMIN C) | | | | | 7/20 | ntinu | | CHEW | | | | | 19 | ed | + + + +---------+------+------+-------+ | cephalexin | Take 1 capsule by | | 0 | 06/0 | 10/0 | Disco | | (KEFLEX) 500 mg | mouth 3 (three) | | | 5/20 | 7/20 | ntinu | | capsule | times daily. | | | 19 | 19 | ed | + + + +---------+------+------+-------+ | losartan (COZAAR) | Take 100 mg by mouth | | 0 | | 10/0 | Disco | | 100 MG tablet | daily | | | | 7/20 | ntinu | | | | | | | 19 | ed | + + + +---------+------+------+-------+ | aspirin 81 mg | Take 81 mg by mouth | | 0 | | 10/0 | Disco | | chewable tablet | daily with | | | | 7/20 | ntinu | | | breakfast. | | | | 19 | ed | + + + +---------+------+------+-------+ | Cholecalciferol | Take 2,000 Units by | | 0 | | 10/0 | Disco | | (VITAMIN D-3) 2000 | mouth Daily. | | | | 7/20 | ntinu | | units CAPS | | | | | 19 | ed | + + + +---------+------+------+-------+ | | Take 1 tablet by | | 0 | | 10/0 | Disco | | HYDROcodone-acetamin | mouth every 6 (six) | | | | 7/20 | ntinu | | ophen (NORCO) 5-325 | hours as needed for | | | | 19 | ed | | mg per tablet | Pain. | | | | | | + + + +---------+------+------+-------+ | mometasone | Apply topically | | 0 | | 10/0 | Disco | | (ELOCON) 0.1 % cream | daily as needed. | | | | 7/20 | ntinu | | | | | | | 19 | ed | + + + +---------+------+------+-------+ Active Problems [...] + + + | Overview: Problem List Power Originator Utility | + + + + + [...] | | | | | 3 (moderate) ([facility]) | | | | | | (Primary Dx); CKD | | | | | | (chronic kidney | | | | | | disease), stage IV | | | | | | ([facility]); Electrolyte | | | | | | imbalance risk; | | | | | | Secondary | | | | | | hyperparathyroidism | | | | | | ([facility]); Vitamin D | | | | | | deficiency | +--------+ + + + + | 07/26/ | Orders Only | Nephrology | Danny Gandara MD | CKD (chronic kidney | | 2019 | | | | disease), stage IV | | | | | | ([facility]) (Primary Dx) | +--------+ + + + + | 07/26/ | Documentati | Nephrology | Tobias, | | | 2018 | on | | Bandar Cannon | | | | | | Gunner Mate | | +--------+ + + + + | 07/06/ | Procedure | Cardiology | Caitlyn, Sparkle, | Pacemaker | | 2018 | visit | | MD | | +--------+ + + + [...] Temperature | 37.2 C (98.9 F) | 03/20/2019823 PDT | + + + + | Respiratory Rate | 20 | 03/20/2019823 PDT | + + + + | [...] Height | 167.6 cm (5' 6") | 07/26/20191008 PDT | + + + + | Body Mass Index | 41.67 | 07/26/20191008 PDT | + + + + Plan of Treatment +--------+ + + + + | Date | Type | Specialty | Care Team | Description | +--------+ + + + + | 09/08/ | Office | Cardiology | Sparkle Brady, | | | 2018 | Visit | | MD Jennifer GRIFFITH | | | | | | [place] | | | | | | [address] | | | | | | | | +--------+ + + + + | 10/11/ | Procedure | Cardiology | | | | 2018 | visit | | | | +--------+ + + + + | 11/29/ | Office | Nephrology | Danny Gandara MD | | | 2019 | Visit | | [address] | | | | | | [address] [facility] [place] | | | | | | [address] | | | | | | | [...] + + + | Vaccine: | | 06/20/2014 | | | Pneumococcal 65+ | 5 | | | | High/Highest Risk (2 | | | | | of 2 - PCV13) | | | | + + + + + | Adult Annual | | | | | Wellness Visit | 8 | | | + + + + + | Vaccine: Influenza | | 12/27/2018, 07/03/2018, | | | (#1) | 9 | 06/26/2017, Additional history | | | | | [...] this | | INTERROGATION- | e | 15:00 PDT | | procedure are in the | | REMOTE | | | | results section. | [...] + + | Blood | + + Device Interrogation - Remote (07/06/2019 15:00 PDT) + + + | Narrative | Performed At | + + + | Loyd Rondon, Technologist 07/08/2019 13:34 PACEMAKER | [facility] | | REMOTE INTERROGATION REPORT Name: Michael Joshi PCP: Kushal Peacock | | | MD Igor : 1940 Primary cardiology | | | provider: Sparkle Brady Primary electrophysiology provider: None | | | Device faro dealer: [employer] Device type: | | | Single chamber [...] Testing | | | reviewed by: Paras Trujillo Rep | | + + + + +---------+ + + | Performing | Address | City/State/Zipcode | Phone Number | | Organization | | | | + +---------+ + + | [facility] | | | | + +---------+ + + from Last 3 Months Insurance [...] +--------+ +---------+--------+ | MEDICARE | MEDICA | [id number] | 10/20/19 | [phone] | | Medica | | | RE | | 05-Pre | 5 | | re | | | PART A | | sent | | | | | | AND B | | | | | | + +--------+ +--------+ +---------+--------+ | MEDICARE | MEDICA | [id number] | 10/20/19 | [phone] | | Medica [...] [place] | | | 1 (Home) | [address] | + +--------+ +--------+ + + | Michael Joshi | Person | Self | [birth year] | [address] | | | al/Fam | | 1941 | [phone] | [place] | | | [place] | | | 1 (Home) | [address] | + +--------+ +--------+ + + Advance Directives Patient has advance care planning documents on file. For more information, please contact:[facility] [place] [address]
--- OUTSIDE RECORDS SUMMARY | ~2019-08-24 | XMS | Encounter Summary ---
Demographics + + + | Address | [address] | | | [place] [address] | + + + | Home Phone [...] Team Providers + +------+ + | Care College Admissions Counselor Name | Role | Phone | [...] + + | 07/06/ | Procedure | [facility] | Sparkle Brady, | Pacemaker | | 2019 | visit | CARDIOLOGY [place] | [address] | | | | | [address] | [place], [place] | | | | | [facility] [place] [facility] | [address] | | | | | [place] | | | | | | [address] | | | | | | [phone] | | | +--------+ + + + [...] | 2018 | Visit | | [address] | | | | | | [place] | | | | | | [address] | | | | | | | | +--------+ + + + + | 10/11/ | Procedure | Cardiology | | | | 2018 | visit | | | | +--------+ + + + + | 11/29/ | Office | Nephrology | Danny Gandara MD | | | 2019 | Visit | | [address] [facility] [place] | | | | | | [address] [place] | | | | | | [address] | | | | | | | [...] encounter Results Device Interrogation - Remote (07/06/2019 15:00 PDT) + + + | Narrative | Performed At | + + + | Loyd Rondon, Technologist 07/08/2019 13:34 PACEMAKER | [facility] | | REMOTE INTERROGATION REPORT Name: Michael Joshi PCP: Kushal Peacock | | | MD Igor : 1940 Primary cardiology | | | provider: Sparkle Brady Primary electrophysiology provider: None | | | Device consulting intern: [email or web address] Device type: | | | Single chamber [...]
--- OUTSIDE RECORDS SUMMARY | ~2019-08-24 | XMS | Encounter Summary ---
Demographics + + + | Address | [address] | | | [place] [address] | + + + | Home Phone [...] Team Providers + +------+ + | Care Bath Steward Name | Role | Phone | + +------+ + | Kushal Costa MD | PCP | | + +------+ + Encounter Details +--------+ + + + + | Date | Type | Department | Care Team | Description | +--------+ + + + + | 07/26/ | Orders Only | [facility] | Danny Gandara MD | CKD (chronic kidney | | 2019 | | NEPHROLOGY [place] | [address] [place] | disease), stage IV | | | | [address] [place] | [address] [place], [place] | ([facility]) (Primary Dx) | | | | [address] [place], [place] | [address] | | | | | [address] | | | | | | [phone] | | | +--------+ + + + [...] [place] | | | | | | [address] | | | | | | | | +--------+ + + + + | 10/11/ | Procedure | Cardiology | | | | 2018 | visit | | | | +--------+ + + + + | 11/29/ | Office | Nephrology | Danny Gandara MD | | | 2019 | Visit | | [address] [facility] | | | | | | [address] [place] | | | | | | [address] | | | | | | | [...]
--- OUTSIDE RECORDS SUMMARY | ~2019-08-24 | XMS | Encounter Summary ---
Demographics + + + | Address | [address] | | | [place] [address] | + + + | Home Phone | | + + + | Preferred Language | Unknown | + + + | Marital Status | Single | + + + | Yazidi Affiliation | Unknown | + + + | Race | Unknown | + + + | Ethnic Group | Other Race | + + + Author + + + | Author | [facility] | + + + | Organization | [facility] | + + + | Address | Unknown | + + + | Phone | Unavailable | + + + Support + + +---------+ + | Name | Relationship | Address | Phone | + + +---------+ + | None None | ECON | Unknown | Unavailable | + + +---------+ + Care Team Providers + +------+ + | Care Bread Packer Name | Role | Phone | + +------+ + PCP | Unavailable | + +------+ + Encounter Details +--------+ + + + + | Date | Type | Department | Care Team | Description | +--------+ + + + + | 01/13/ | Documentati | Neurology at | Sy Goodwin, | | | 2007 | on | [facility] & | MD Angeles Fox | | | | | [address] | [place], [place] | | | | | Rj Fox Mailcode: | [address] | | | | | [facility] | [phone] | | | | | Health and Healing, | | | | | | | | | | | | [place], [place] | | | | | | [address] | | | | | | [phone] | | | +--------+ + + + [...]
--- OUTSIDE RECORDS SUMMARY | ~2019-08-24 | XMS | Clinical Summary ---
Demographics + + + | Address | [address] | | | [place] [address] | + + + | Home Phone [...] Team Providers + +------+ + | Care Document Preparer Microfilming Name | Role | Phone | + [...] + + + | Overview: Problem List Service Promoter Salesperson Utility | + + + + + [...] | | | | | 3 (moderate) ([facility]) | | | | | | (Primary Dx); CKD | | | | | | (chronic kidney | | | | | | disease), stage IV | | | | | | ([facility]); Electrolyte | | | | | | imbalance risk; | | | | | | Secondary | | | | | | hyperparathyroidism | | | | | | ([facility]); Vitamin D | | | | | | deficiency | +--------+ + + + + | 07/26/ | Orders Only | Nephrology | Danny Gandara MD | CKD (chronic kidney | | 2019 | | | | disease), stage IV | | | | | | ([facility]) (Primary Dx) | +--------+ + + + + | 07/26/ | Documentati | Nephrology | Tobias, | | | 2018 | on | | Bandar Cannon | | | | | | Swim Instructor | | +--------+ + + + + [...] | | | | | [place] | | | | | | [address] | | | | | | | | +--------+ + + + + | 10/11/ | Procedure | Cardiology | | | | 2018 | visit | | | | +--------+ + + + + | 11/29/ | Office | Nephrology | Danny Gandara MD | | | 2019 | Visit | | [address] [facility] | | | | | | [facility] [place] | | | | | | [address] | | | | | | | [...] electrophysiology provider: None | | | Device project manager/team coach: [employer] Device type: | | | Single chamber [...] +--------+ +---------+--------+ | MEDICARE | MEDICA | [id number] | 10/20/19 | [phone] | | Medica | | | RE | | 05-Pre | 5 | | re | | | PART A | | sent | | | | | | AND B | | | | | | + +--------+ +--------+ +---------+--------+ | MEDICARE | MEDICA | [id number] | 10/20/19 | [phone] | | Medica [...] [place] | | | 1 (Home) | [address] | + +--------+ +--------+ + + | Michael Joshi | Person | Self | [birth year] | [address] | | | al/Fam | | 1941 | [phone] | [place] | | | [place] | | | 1 (Home) | [address] | + +--------+ +--------+ + + Advance Directives Patient has advance care planning documents on file. For more information, please contact:[facility] [place] [address]
--- OUTSIDE RECORDS SUMMARY | ~2019-08-24 | XMS | Clinical Summary ---
Demographics + + + | Address | [address] | | | [place] [address] | + + + | Home Phone [...] Providers + +------+ + | Care Automation Manager Name | Role | Phone | [...] + + + | Overview: Problem List Wood Preserving Plant Laborer Utility | + + + + + [...] | | | | | 3 (moderate) ([facility]) | | | | | | (Primary Dx); CKD | | | | | | (chronic kidney | | | | | | disease), stage IV | | | | | | ([facility]); Electrolyte | | | | | | imbalance risk; | | | | | | Secondary | | | | | | hyperparathyroidism | | | | | | ([facility]); Vitamin D | | | | | | deficiency | +--------+ + + + + | 07/26/ | Orders Only | Nephrology | Danny Gandara MD | CKD (chronic kidney | | 2019 | | | | disease), stage IV | | | | | | ([facility]) (Primary Dx) | +--------+ + + + + | 07/26/ | Documentati | Nephrology | Tobias, | | | 2018 | on | | Bandar Cannon | | | | | | Corporate Affairs Manager | | +--------+ + + + [...] | | | | | [place] | | | | | | [address] | | | | | | | | +--------+ + + + + | 10/11/ | Procedure | Cardiology | | | | 2018 | visit | | | | +--------+ + + + + | 11/29/ | Office | Nephrology | Danny Gandara MD | | | 2019 | Visit | | [address] [facility] | | | | | | [address] [facility], [place] | | | | | | [address] | | | | | | | [...] electrophysiology provider: None | | | Device sandwich maker: WeGoOut Device type: | | | Single chamber [...] +--------+ +---------+--------+ | MEDICARE | MEDICA | [id number] | 10/20/19 | [phone] | | Medica | | | RE | | 05-Pre | 5 | | re | | | PART A | | sent | | | | | | AND B | | | | | | + +--------+ +--------+ +---------+--------+ | MEDICARE | MEDICA | [id number] | 10/20/19 | [phone] | | Medica [...] lissy | | | 1 (Home) | [address] | + +--------+ +--------+ + + | Michael Joshi | Person | Self | [birth year] | [address] | | | al/Fam | | 1941 | [phone] | [place] | | | [place]y | | | 1 (Home) | [address] | + +--------+ +--------+ + + Advance Directives Patient has advance care planning documents on file. For more information, please contact:[facility] [place] [address]
--- OUTSIDE RECORDS SUMMARY | ~2019-08-24 | XMS | Encounter Summary ---
Demographics + + + | Address | [address] | | | [place] [address] | + + + | Home Phone | | + + + | Preferred Language | Unknown | + + + | Marital Status | | + + + | Latter-Day Affiliation | 1041 | + + + | Race | Unknown | + + + | Ethnic Group | Unknown | + + + Author + + + | Author | [facility] | | | and [place] | + + + | Organization | [facility] | | [...] Providers + +------+ + | Care Contract Project Manager Name | Role | Phone | + +------+ + | Kushal Costa MD | PCP | | + +------+ + Encounter Details +--------+ + + + + | Date | Type | Department | Care Team | Description | +--------+ + + + + | 07/26/ | Documentati | [facility] | Tobias, | | | 2019 | on | NEPHROLOGY ERICH | Bandar Cannon | | | | | [address] [place] | Nanotechnician | | | | | [address] [facility] [place] | | | | | | [address] | | | | | | [phone] | | | +--------+ + + + [...] | | | | | [place], [place] | | | | | | [address] | | | | | | | [...] [place] | | | | | | [address] | | | | | | | [...]
--- OUTSIDE RECORDS SUMMARY | ~2019-08-24 | XMS | Encounter Summary ---
Demographics + + + | Address | [address] | | | [place] [address] | + + + | Home Phone [...] Author | [facility] [...] Team Providers + +------+ + | Care Service Support Representative Name | Role | Phone | + [...] | [address] | [place], [place] | | | | | [facility] [place] [facility] | [address] | | | | | [place] | | | | | | [address] | | | | | | [phone] | | | +--------+ + + + [...] [place] | | | | | | [address] | | | | | | | | +--------+ + + + + | 10/11/ | Procedure | Cardiology | | | | 2018 | visit | | | | +--------+ + + + + | 11/29/ | Office | Nephrology | Danny Gandara MD | | | 2019 | Visit | | [address] [facility] [place] | | | | | | 160 [place] | | | | | | [address] | | | | | | | [...] electrophysiology provider: None | | | Device medical videographer: [employer] Device type: | | | Single chamber [...]
--- OUTSIDE RECORDS SUMMARY | ~2019-08-24 | XMS | Encounter Summary ---
Demographics + + + | Address | [address] | | | [place] [address] | + + + | Home Phone [...] + + + | Author | [facility] | + + + | Organization | [facility] | + + + | Address | Unknown | + + + | Phone | Unavailable | + + + Support + + +---------+ + | Name | Relationship | Address | Phone | + + +---------+ + | None None | ECON | Unknown | Unavailable | + + +---------+ + Care Team Providers + +------+ + | Care Through Operator Name | Role | Phone | [...] | | | Ave Mail[address]: [address] | [place], [place] | | | | | [facility] | [address] | | | | | and Healing, | [phone] | | | | | [facility] | | | | | | Floor [place], [place] | | | | | | [address] | | | | | | [phone] | | | +--------+ + + + [...] 1940 Medical | | | Record Number: [id number] Date of Test: 01/13/2008 ROUTINE EEG | | | Done at [facility] The awake background is of low | [...]
--- OUTSIDE RECORDS SUMMARY | ~2019-08-24 | XMS | Encounter Summary ---
Demographics + + + | Address | [address] | | | [place] [address] | + + + | Home Phone | | + + + | Preferred Language | Unknown | + + + | Marital Status | Single | + + + | Mosque Affiliation | Unknown | + + + | Race | Unknown | + + + | Ethnic Group | Other Race | + + + Author + + + | Author | [facility] | + + + | Organization | [facility] | + + + | Address | Unknown | + + + | Phone | Unavailable | + + + Support + + +---------+ + | Name | Relationship | Address | Phone | + + +---------+ + | None None | ECON | Unknown | Unavailable | + + +---------+ + Care Team Providers + +------+ + | Care Slitter Scorer Cut Off Operator Name | Role | Phone | + +------+ + PCP | Unavailable | + +------+ + Encounter Details +--------+ + + + + | Date | Type | Department | Care Team | Description | +--------+ + + + + | 01/13/ | Documentati | Neurology at | Sy Goodwin, | | | 2007 | on | [facility] & | MD Angeles Fox | | | | | [address] | [place], [place] | | | | | Rj Fox Mailcode: | [address] | | | | | [facility] | [phone] | | | | | Health and Healing, | | | | | | | | | | | | [place], [place] | | | | | | [address] | | | | | | [phone] | | | +--------+ + + + [...]
--- OUTSIDE RECORDS SUMMARY | ~2019-08-24 | XMS | Encounter Summary ---
Demographics + + + | Address | [address] | | | [place] [address] | + + + | Home Phone | | + + + | Preferred Language | Unknown | + + + | Marital Status | Single | + + + | Roman Catholic Affiliation | Unknown | + + + | Race | Unknown | + + + | Ethnic Group | Other Race | + + + Author + + + | Author | [facility] | + + + | Organization | [facility] | + + + | Address | Unknown | + + + | Phone | Unavailable | + + + Support + + +---------+ + | Name | Relationship | Address | Phone | + + +---------+ + | None None | ECON | Unknown | Unavailable | + + +---------+ + Care Team Providers + +------+ + | Care Contour Band Saw Operator Vertical Name | Role | Phone [...] | | | Ave Mail[address]: [address] | [place], [place] | | | | | [facility] | [address] | | | | | and Healing, | [phone] | | | | | [facility] | | | | | | Floor [place], [place] | | | | | | [address] | | | | | | [phone] | | | +--------+ + + + [...] 1940 Medical | | | Record Number: [id number] Date of Test: 01/13/2008 ROUTINE EEG | | | Done at [facility] The awake background is of low | [...]
--- OUTSIDE RECORDS SUMMARY | ~2019-08-24 | XMS | Clinical Summary ---
Demographics + + + | Address | [address] | | | [place] [address] | + + + | Home Phone | | + + + | Preferred Language | Unknown | + + + | Marital Status | | + + + | Samaritan Affiliation | 1041 | + + + | Race | Unknown | + + + | Ethnic Group | Unknown | + + + Author + + + | Author | [email or web address] (Historical as of | | | 06-05-19) | + + + | Organization | [email or web address] (Historical as of | | | 06-05-19) [...] Providers + +------+ + | Care Senior Sales Representative Name | Role | Phone | [...] of chronic renal failure, stage 3 (moderate) ([facility]) | 02/15/2019 | + + + | Pulmonary hypertension ([facility]) | 12/27/2018 | + + + | Right heart failure ([facility]) | 12/27/2018 | + + + [...] ml/min ([facility]) | 10/27/2017 | + + + [...] + + | IZZY (acute kidney injury) ([facility]) | 01/07/20 | | | | [...] [place], | | | | | | [place] [address] | | | | | | [phone] | | | | | | | [...] | | SCIENTIFIC | | 2021 | /[id number] | | on 03/19/2019 by Caitlyn, | [...] +------+-------+ + | MEDICARE | MEDICA | [id number] | | | [address] | | | RE | | | | [place] [address] | | | IP-OP | | | [...] Self | [birth year] | Home: | [address] | | | al/Fam | | 1941 | [phone] | [place] | | | [place] | | | [phone] | [address] | + +--------+ +--------+ + +
--- OUTSIDE RECORDS SUMMARY | ~2019-08-24 | XMS | Encounter Summary ---
Demographics + + + | Address | [address] | | | [place] [address] | + + + | Home Phone | | + + + | Preferred Language | Unknown | + + + | Marital Status | | + + + | Congregational Affiliation | 1041 | + + + [...] Team Providers + +------+ + | Care Clay House Worker Name | Role | Phone | + +------+ + | Kushal Costa MD | PCP | | + +------+ + Encounter Details +--------+---------+ + + + | Date | Type | Department | Care Team | Description | +--------+---------+ + + + | 07/26/ | Office | [facility] | Danny Gandara MD | Anemia of chronic | | 2019 | Visit | NEPHROLOGY [place] | [address] [facility] | renal failure, stage | | | | [address] | [address] [place], [place] | 3 (moderate) (HCC) | | | | [address] [place] [address] | [address] | (Primary Dx); CKD | | | | [place], [place] | | (chronic kidney | | | | [address] | | disease), stage IV | | | | [phone] | | [facility] Electrolyte | | | | | | imbalance risk; | | | | | | Secondary | | | | | | hyperparathyroidism | | | | | | ([facility]); Vitamin D | | [...] 12 (L) 12/27/2018 LABPROT 286.2 (A) 11/20/2018 [id number] 06/29/2018 Assessment: Mr. Joshi is a [...] before he comes back in 4 m [facility]. Thank you Dr Costa for the opportunity to see this patient in F/U on an urgent basis tod ay as we are trying to prevent a hospitalization for severe electrolyte imbalance &/or sever e volume extremes. Please do not hesitate to call me at any time with questions or concerns. Truly yours, Danny Gandara MD [facility] documented in this encount er Plan [...] [place] | | | | | | [address] | | | | | | | | +--------+ + + + + | 10/11/ | Procedure | Cardiology | | | 2018 | visit | | | | +--------+ + + + + | 11/29/ | Office | Nephrology | Danny Gandara MD | | | 2019 | Visit | | [address] [facility] | | | | | | [address] [place] | | | | | | [address] | | | | | | | [...]
--- OUTSIDE RECORDS SUMMARY | ~2019-08-24 | XMS | Clinical Summary ---
Demographics + + + | Address | [address] | | | [place] [address] | + + + | Home Phone | | + + + | Preferred Language | Unknown | + + + | Marital Status | Single | + + + | Religion Affiliation | Unknown | + + + [...] Team Providers + +------+ + | Care Scout Sniper Name | Role | Phone | + +------+ + PCP | Unavailable | + +------+ + Source Comments [facility] is fully live on both [facility] Ambulatory and [facility] InPatient.[facility] Allergies Not on File Medications [...]
--- OUTSIDE RECORDS SUMMARY | ~2019-08-24 | XMS | Clinical Summary ---
Demographics + + + | Address | [address] | | | [place] [address] | + + + | Home Phone | | + + + | Preferred Language | Unknown | + + + | Marital Status | | + + + | Hoahaoism Affiliation | 1041 | + + + | Race | Unknown | + + + | Ethnic Group | Unknown | + + + Author + + + | Author | [facility] (Historical as of | | | 06-05-19) | + + + | Organization | [facility] (Historical as of | | | 06-05-19) [...] Team Providers + +------+ + | Care Letter Of Credit Document Examiner Name | Role | Phone | [...] of chronic renal failure, stage 3 (moderate) ([facility]) | 02/15/2019 | + + + | Pulmonary hypertension ([facility]) | 12/27/2018 | + + + | Right heart failure ([facility]) | 12/27/2018 | + [...] disease) stage 3, GFR 30-59 ml/min ([facility]) | 10/27/2017 | + [...] + | IZZY (acute kidney injury) ([facility]) | 01/07/20 | | [...] | | | | | | [place] [address] | | | | | | [phone] | | | | | | | [...] | | SCIENTIFIC | | 2021 | /[id number] | | on 03/19/2019 by Caitlyn, | [...] +------+-------+ + | MEDICARE | MEDICA | [id number] | | | [address] | | | RE | | | | [place] [address] | | | IP-OP | | | [...] Self | [birth year] | Home: | [address] | | | al/Fam | | 1941 | [phone] | [place] | | | [place] | | | [phone] | [phone] | + +--------+ +--------+ + +
--- OUTSIDE RECORDS SUMMARY | ~2019-08-24 | XMS | Encounter Summary ---
Demographics + + + | Address | [address] | | | [place] [address] | + + + | Home Phone [...] Providers + +------+ + | Care Manager Strategic Alliances Name | Role | Phone | + [...] | [address] | [place], [place] | | | | | [facility] [place] [facility] | [address] | | | | | [place] | | | | | | [address] | | | | | | [phone] | | | +--------+ + + + [...] [place] | | | | | | [address] | | | | | | | | +--------+ + + + + | 10/11/ | Procedure | Cardiology | | | | 2018 | visit | | | | +--------+ + + + + | 11/29/ | Office | Nephrology | Danny Gandara MD | | | 2019 | Visit | | [address] [facility] [place] | | | | | | [address] [place] | | | | | | [address] | | | | | | | [...] electrophysiology provider: None | | | Device senior microsoft consultant: Bunchball Device type: | | | Single chamber [...]
[~2019-08-24 11:13] MED LIST changes: +METOLAZONE10 MG PO
--- OUTSIDE RECORDS SUMMARY | 2019-08-24 11:16 | XMS ---
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 Care History Medical/Surgical 10/07/2018 [facility] - PATIENT IS CURRENTLY RECEIVING HOME HEALTH SERVICES THRU [facility]. PLEASE CONTACT HOME HEALTH SERVICES AT [phone] WHEN PATIENT IS SEEN IN THE ED. 09/16/2018 [facility] - Patient is currently established with [facility]. If patient is seen in the ED during business hours. Please contact CHWs at [facility]. Care Recommendation: This patient has had [...] providing care. E.D. VISIT COUNT (12 MO.) 1 [facility] NOTE: Visits indicate total known visits. ED/UCC VISIT TRACKING (12 MO.) 08/24/2019 11:14 [facility] [place] TYPE: Emergency COMPLAINT: - SOB 03/18/2019 15:32 [facility] TYPE: Emergency DIAGNOSES: - Syncope 03/17/2019 18:31 [facility] [place] TYPE: Emergency COMPLAINT: - FALL, INJURY 01/14/2019 17:07 [facility] [place] TYPE: Emergency COMPLAINT: - RECTAL BLEEDING DIAGNOSES: - Heart failure, unspecified - Other hemorrhoids - stem maker (current) use of aspirin - Allergy status to oth drug/meds/biol subst status - Presence of cardiac pacemaker - Hemorrhage of anus and rectum - Residual hemorrhoidal skin tags - Unspecified atrial fibrillation 12/26/2018 18:44 [facility] [place] TYPE: Emergency COMPLAINT: - VOMITTITNG DIAGNOSES: - Other specified abnormal findings of blood chemistry - Other fpc (current) drug therapy - Allergy status to ot drug/meds/biol subst status - Heart failure, unspecified - Presence of cardiac pacemaker - stem maker (current) use of aspirin - Unspecified atrial fibrillation - Weakness 12/08/2018 10:38 [facility] [place] TYPE: Emergency COMPLAINT: - R LEG PAIN,NON INJURY DIAGNOSES: - Heart failure, unspecified - Other fpc (current) drug therapy - Localized edema - Unspecified atrial fibrillation - Cellulitis of right lower limb - retirement (current) use of aspirin - Unspecified open wound, right lower leg, initial encounter - Allergy status to oth drug/meds/biol subst status 09/16/2018 12:32 [facility] [place] TYPE: Emergency COMPLAINT: - SWELLING IN LEGS/NON INJURY INPATIENT VISIT TRACKING (12 MO.) 03[facility]18/2019 [facility] TYPE: General Medicine DIAGNOSES: - Syncope - Breakdown (mechanical) of cardiac electronic device, init - Syncope and collapse - 1 Chronic kidney disease, stage 3 (moderate) 03/17/2019 18:32 [facility] [place] TYPE: Observation COMPLAINT: - SYNCOPE WITH COLLAPSE DIAGNOSES: - Patient's noncompliance w oth medical treatment and regimen - Other fall from one level to another, initial encounter - Sleep apnea, unspecified - Allergy status to oth drug/meds/biol subst status - Parking lot as the place of occurrence of the external cause - Chronic atrial fibrillation - Anemia, unspecified - Laceration without foreign body, left lower leg, init encntr - Venous insufficiency (chronic) (peripheral) - Encounter for adjust and mgmt oth prt cardiac pacemaker - Heart failure, unspecified - stem maker (current) use of aspirin - Syncope and collapse - Other 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/supervisor (current) drug therapy 12/27/2018 01:07 [facility] [place] TYPE: General Medicine DIAGNOSES: - Dyspnea - Elevated troponin - Fluid overload, unspecified 09/16/2018 12:33 [facility] [place] TYPE: Observation COMPLAINT: - LYMPHEDEMA DIAGNOSES: - Chronic kidney disease, unspecified - Other fpc (current) drug therapy - Acute kidney failure, unspecified - Chronic combined systolic and diastolic hrt fail - Allergy status to oth drug/meds/biol subst status - Chronic atrial fibrillation - Do not resuscitate - Lymphedema, not elsewhere classified - 1 Hyp hrt \T\ chr kdny dis w hrt fail and stg 1-4/unsp chr kdny - Obstructive sleep apnea (adult) (pediatric) - Pulmonary hypertension, unspecified - Blister (nonthermal), right lower leg, initial encounter - stem maker (current) use of aspirin - Presence of cardiac pacemaker [email or web address]
--- NOTE | 2019-08-24 19:30 | NUR ---
REPORT RECIEVED FROM RESEARCH PROGRAMMER. CARE ASSUMED AT THIS TIME. PT BROUGHT TO CCU ON STRETCHER VIA FLOAT RN. PT ALERT AND ORIENTED AT TIME OF ARRIVAL. AT BEDSIDE. PT INITIAL ASSESSMENT COMPLETED. WOUND CARE NURSE IN TO ASSESS AND DRESS WOUNDS ON PT COCCYX. PHOTOS IN PATIENT CHART. PT DENIES SHORTNESS OF BREATH OR PAIN AT THIS TIME. PLAN OF CARE FOR EVENING DISCUSSED WITH PATIENT, CALL LIGHT WITHIN REACH. NO FURTHER NEEDS AT THIS TIME.
--- NOTE | 2019-08-24 20:24 | EKG ---
[facility] [address] [facility] [place], [place] [address] Signed Atrial fibrillation with rapid ventricular response Low voltage QRS Septal infarct (cited on or before 16-SEP-2018) Abnormal ECG When compared with ECG of 17-MAR-2019 18:43, No significant change was found Confirmed by RUCHI LINARES DO ([id number]) on 08/24/2019 8:23:52 PM Electronically Signed By: RUCHI LINARES DO 08/24/192023 PATIENT NAME: JOSEFROYLAN BERNICE Electrocardiogram DATE OF : 38 PHYSICIAN: RUCHI LINARES DO REPORT #: [id number] REPORT IS CONFIDENTIAL AND NOT TO BE RELEASED WITHOUT AUTHORIZATION
--- NOTE | 2019-08-24 20:25 | EKG ---
[facility] [address] [facility] [place], [place] [address] Signed Atrial fibrillation with frequent ventricular-paced complexes Low voltage QRS Septal infarct , age undetermined Abnormal ECG When compared with ECG of 24-AUG-2019 11:22, (Unconfirmed) Electronic ventricular pacemaker has replaced Atrial fibrillation Confirmed by RUCHI LINARES DO ([id number]) on 08/24/2019 8:25:14 PM Electronically Signed By: RUCHI LINARES DO 08/24/192024 PATIENT NAME: JOSEFROYLAN BERNICE Electrocardiogram DATE OF : 38 PHYSICIAN: RUCHI LINARES DO REPORT #: [id number] REPORT IS CONFIDENTIAL AND NOT TO BE RELEASED WITHOUT AUTHORIZATION
--- NOTE | 2019-08-24 21:39 | NUR ---
CRITICAL TROPONIN T OF 0.[address] LINARES
--- NOTE | 2019-08-24 21:41 | NUR ---
PT RESTING WITH EYES CLOSED. BREATHING EVEN AND UNLABORED. R=22. CALL LIGHT WITHIN REACH.
--- NOTE | 2019-08-24 21:57 | NUR ---
PT WAS INCONTINENT OF URINE. PERFORMED PERICARE, SKIN CARE, AND ASSISTED PT WITH REPOSITIONING IN BED. PT HAS POOR MOBILITY IN BED. TWO STAFF MEMBERS REQUIRED.
--- NOTE | 2019-08-25 | NUR ---
IN ROOM FOR ASSESSMENT. PT ATTEMPTED TO VOID INTO URINAL BUT WAS UNSUCCESSFUL. DENIES PAIN OR SHORTNESS OF BREATH. REPOSITIONED PT IN BED. CALL LIGHT WITHIN REACH. NO FURTHER NEEDS AT THIS TIME.
--- NOTE | 2019-08-25 02:30 | NUR ---
PT RESTING WITH EYES CLOSED. BREATHING EVEN AND UNLABORED. R=16. O2 SAT= 96 ON ROOM AIR. CALL LIGHT AND PERSONAL BELONGINGS WITHIN REACH OF PT.
--- NOTE | 2019-08-25 04:44 | NUR ---
IN ROOM FOR PATIENT ASSESSMENT. SMALL AMOUNT OF DRAINAGE FROM DRESSING ON BILATERAL LOWER EXTREMITIES. PT STATES THIS IS NORMAL. GREEN LIFT PAD PLACED UNDER PATIENT, AND PT TURNED UP ONTO RIGHT SIDE WITH PILLOWS. CALL LIGHT WITHIN REACH. NO FURTHER NEEDS.
--- NOTE | 2019-08-25 08:31 | NUR ---
PT ASLEEP SITTING IN A UPRIGHT POSITION AT THIS TIME. PT REMAINED ASLEEP DURING THE ALARMS IN THE HOSPITAL. WILL ALLOW PT TO SLEEP TILL 9AM.
--- NOTE | 2019-08-25 09:24 | NUR ---
PT AWAKEN AND IS SITTING UP IN BED TO EAT BKF AT THIS TIME.
--- NOTE | 2019-08-25 10:15 | NUR ---
RECEIVED REFERRAL FROM ED PHYSICIAN WITH CONCERNS THAT PATIENT DOES NOT HAVE PROPER CARE AT HOME HE CAME IN WITH SKIN BREAKDOWN. LEFT MESSAGE FOR ADULT PROTECTIVE DEPARTMENT THIS MORNING. DANN YATES CAME OVER AND SPOKE WITH HER IN WAITING AREA. SHE IS FAMILIAR WITH PATIENT AND HIS FROM PAST ISSUES. SHE WILL GO AND VISIT WITH HIM AND CONTINUE TO FOLLOW HIS NEEDS.
--- NOTE | 2019-08-25 10:16 | NUR ---
PT HAD BEEN WORKING WITH OT. PT IS CURRENTLY SITTING AT THE EDGE OF THE BED WITH FEET TOUCHING THE GROUND. NON SLIP SOCKES INPLACE AND BEDSIDE TRAY INFRONT OF PT, CALL LIGHT WITHIN REACH, BED IN LOWEST POSITION.
--- NOTE | 2019-08-25 10:38 | NUR ---
PT GIVEN FLU INJUCATION AT THIS TIME.
--- NOTE | 2019-08-25 11:00 | NUR ---
In to speak with Michael. He is sitting on the edge of the and looks better than I have seen him in the past year. Continues to live alone with his who has chronic medical issues. He states he cleans and cooks. Does the driving. Discussed what he is cooking at home, and he cooks more for convenience . He states he tries, but does not really follow his prescribed diet. A family friend, Arabella, assists them with cleaning when she is not working. He does the driving. States concern on returning home. Wants to continue OP OT and would like OP PT. Attempted to discuss assisted living for he and his , but he states his would not agree with this. He is aware of thier declining health.
--- NOTE | 2019-08-25 11:04 | NUR ---
FELICIA Roth INTO SEE AND TALK WITH PT AT THIS TIME.
--- NOTE | 2019-08-25 11:43 | NUR ---
PT UP TO THE CHAIR AT THIS TIME, LINE CHANGED AND PT IS CURRENTLY LOOK AT THE MENUE TO SEE WHAT HE WANTS FOR LUNCH.
[2019-08-25] MEDS ORDERED: VITAMIN D31000 UNIT PO (12:21)
--- NOTE | 2019-08-25 12:22 | NUR ---
Medications reconciled using medical records and patient interview
--- NOTE | 2019-08-25 12:46 | NUR ---
PT ATE LUNCH, EBONY-WELL AND REMAINS UP IN THE CHAIR. DENIES ANY C/O'S AT THIS TIME.
--- NOTE | 2019-08-25 13:47 | NUR ---
PT UP TO THE BATHROOM AT THIS TIME, INCONTENT OF STOOL. PT AMBULATED WELL WITH ONE PERSON ASSISTANCE.
--- NOTE | 2019-08-25 14:05 | NUR ---
PT BACK TO BED AT THIS TIME, NEW DRESSING PLACED ON HIS OPEN SORE AREAS. ATTENDS INPLACE AND A SKIN BARRIER PLACED THAT THE WOUND CARE NURSE SAID TO USE.
--- NOTE | 2019-08-25 14:12 | NUR ---
REPORT GIVEN TO ANABEL AT THIS TIME ALL QUESTIONS ANSWERED AT THIS TIME. PT TRANSFERED TO ROOM 124 VIA BED WITH ALL PERSOANL BELONGINGS AND MEDS
--- NOTE | 2019-08-25 14:20 | NUR ---
PT ARRIVED TO ROOM 124 ON BED. PT ALERT AND ORIENTED. ASSESSMENT COMPLETED. CALL LIGHT AND H2O IN REACH. TOM WITH PHYSICAL THERAPY HERE TO SEE PATIENT. NO NEEDS OR CONCERNS VOICED.
--- NOTE | 2019-08-25 14:21 | NUR ---
PT STATED HE IS A DIRECT ADMIT FROM DR'S OFFICE. HE DID MENTION THAT HE IS FEELING BETTER. HE IS ALERT, ORIENTED AND SEEMS TO BE COMPLIANT WITH RN'S. PT WOULD LIKE TO HAVE TIMBER PACKER IN TOMORROW, I WILL NOTIFY. EXTENDED A BLESSING, IV ALARM GOING OFF, LEONEL CASSIDY IN. WILL FOLLOW NEEDED
--- NOTE | 2019-08-25 19:07 | NUR ---
SHIFT REPORT RECEIVED FROM DAYSHIFT LEONEL LITTLE AT BEDSIDE. PT AWAKE AND RESTING IN BED, NO DISTRESS NOTED. BED ALARM ON FOR SAFETY. CALL LIGHT IN REACH.
--- NOTE | 2019-08-25 20:40 | NUR ---
SPOKE TO DR LINARES REGARDING PT'S H&P. PER HISTORY PT HAS DIABETES. PER PT HE IS PREDIABETIC. PER DR LINARES, NO NEED FOR BLOOD SUGAR CHECKS.
--- NOTE | 2019-08-25 21:03 | NUR ---
ASSESSMENT COMPLETE, SCHEDULED MEDICATION GIVEN (SEE EMAR). VSS, PT ON RA. A/OX4, REORIENTED TO DAY. PT DENIES PAIN.PT SALINE LOCKED, FLUSHES EASILY, SITE WNL. PT INCONTINENT OF URINE, TATTOOER JANUARY AND TATTOOER PACO IN ROOM TO CLEAN PT. PT DENIES ADDITIONAL NEEDS, CALL LIGHT IN REACH.
--- NOTE | 2019-08-25 21:37 | NUR ---
WITH THE HELP OF EVER ANTONIO WE DID A COMPLETE BED CHANGE DUE TO INCONTINENCE OF URINE. NEW GOWN AND TWO WARM BLANKETS GIVEN. ROOM CLEANED UP.PT NEEDS NOTHING MORE AT THIS TIME.
--- NOTE | 2019-08-25 21:42 | NUR ---
PTS VS WERE COMPLETED VIA REQUESTED BY LEONEL HORNER. PT STATED HE MAY HAVE WET HIMSELF QUITE A BIT. BEDDING HAD BEEN COMPLETED CHANGED AND PARTIAL BED BATH GIVEN.
--- NOTE | 2019-08-25 21:50 | NUR ---
PT CLEANED FROM INCONTINENCE. ALLEVYNX2 TO BUTTOCKS PEELING OFF AND SATURATED WITH URINE. WOUNDS X2 TO BUTTOCKS CLEANED WITH WOUND CLEANSER AND DRIED. NEW ALLEVYN X2 PLACED TO BUTTOCKS. PT TOLERATED TURNING IN BED WELL, DENIES ADDITIONAL NEEDS. CALL LIGHT IN REACH.
--- NOTE | 2019-08-25 22:28 | NUR ---
PT USED CALL LIGHT TO ASK FOR ASSISTANCE TO USE THE URINAL AND HE HAD WET HIMSELF ALREADY. HE WAS CLEANED UP AND LEONEL HORNER CHANGED THE ALLEYVN ON HIS BOTTOM. FRESH WATER GIVEN.
--- NOTE | 2019-08-25 22:59 | NUR ---
EVER ANTONIO HELPED PT USE HIS URINAL AND CHANGE HIS PAD.
--- NOTE | 2019-08-25 23:17 | NUR ---
PT RECEIVED FLU SHOT TODAY BY DIANA CASTANEDA. ORDER DISCONTINUED PER PROTOCAL.
--- NOTE | 2019-08-25 23:37 | NUR ---
PER PT REQUEST I WENT IN AND HELPED HIM WITH THE URINAL. I CHANGED HIS PAD HE HAD ALREADY URINATED IN IT.BEDSIDE TABLE AND CALL LIGHT IN REACH.
--- NOTE | 2019-08-26 00:36 | NUR ---
PT RESTING IN BED, EYES CLOSED. RR WNL. PT APPEARS COMFORTABLE, NO SIGNS OF DISTRESS NOTED. CALL LIGHT IN REACH.
--- NOTE | 2019-08-26 03:03 | NUR ---
PT RESTING IN BED, EYES CLOSED, RESPIRATIONS ARE EVEN AND UNLABORED. PT APPEARS CONTENT AND COMFORTABLE. NO SIGNS OF PAIN OR DISTRESS NOTED. CALL LIGHT IN REACH.
--- NOTE | 2019-08-26 05:14 | NUR ---
PT RESTING IN BED, EYES CLOSED. RR WNL, NO DISTRESS OR SIGNS OF PAIN IS NOTED. PT APPEARS COMFORTABLE AT THIS TIME, WILL CONTINUE TO MONITOR. CALL LIGHT IN REACH.
--- NOTE | 2019-08-26 06:46 | NUR ---
ASSESSMENT COMPLETE, NO NEW CHANGES OR CONCERNS. BILATERAL UNNA BOOTS IN PLACE, PT UP SBA WITH FWW FOR STANDING WEIGHT WITH HELP FROM SENIOR MARKET INTELLIGENCE CONSULTANT JANUARY. PT BACK IN BED, DENIES ADDITIONAL NEEDS, CALL LIGHT IN REACH.
--- NOTE | 2019-08-26 08:12 | NUR ---
PT RESTING SUPINE IN BED ALERT AND ORIENTED. PT ASSISTED IN CHANGING HE WAS INCONTINANT OF URINE. AM MEDS ADMINISTERED AND ASSESSMENT COMPLETED. CALL LIGHT AND H2O IN REACH. PT DENIES NEEDS OR CONCERNS.
--- NOTE | 2019-08-26 08:44 | NUR ---
PATIENT WAS AWAKE FACE WASHED AND CALL LIGHT IN REACH, PATIENT NEEDED CHANGED RN AND GLASS ETCHER HELPER ASSTIED WITH HIS CARES, FRESH WATER GIVEN , CALL LIGHT IN REACH . REPOSTIONED PATIENT.
--- NOTE | 2019-08-26 11:45 | NUR ---
PT SITTING UP IN HIGH FOWLERS EATING LUNCH. PT DENIES NEEDS OR CONCERNS. CALL LIGHT AND H2O IN REACH.
--- NOTE | 2019-08-26 13:41 | NUR ---
EVER KRAUS ASSISTING PT BACK TO BED. HE HAS BEEN IN CHAIR, VISITING WITH HIS SIFE AND FEELS A NEED TO GET BACK IN BED AND REST. GAVE PT A G.POST AND WILL CHECK IN LATER.
--- NOTE | 2019-08-26 14:30 | NUR ---
PT TRANSFERED TO ROOM 115 VIA BED AT THIS TIME. PT ASSESSMENT COMPLETED. PT ASSISTED UP TO CHAIR WITH 2PA AND FWW. PT RESTING RECLINED IN CHAIR WATCHING TV WITH CALL LIGHT AND H2O IN REACH.
--- NOTE | 2019-08-26 16:11 | NUR ---
Went to speak with Michael. He is walking in the steele. Smiles, states it is hard to walk. Words of encouragement given.
--- NOTE | 2019-08-26 17:01 | NUR ---
PT ASSISTED UP TO BED, ALERT AND ORIENTED, CALL LIGHT AND H2O IN REACH. PT DENIES NEEDS OR CONCERNS. BED ALARM ON FOR SAFETY.
--- NOTE | 2019-08-26 19:20 | NUR ---
RECEIVED REPORT FROM LEONEL LITTLE. pt RESTING IN BED. WATER REFRESHED. WHITEBOARD UPDATED. NO FURTHER REQUESTS AT THIS TIME. CALL LIGHT WITHIN REACH.
--- NOTE | 2019-08-26 21:15 | NUR ---
ASSESSMENT DONE. VITALS RECORDED. MEDICATION GIVEN SEE PERICARE DONE. LINENS CHANGED. DEPENDS AND PAD IN PLACE. OCCUPATIONAL THERAPY AIDE IN ROOM. CALL LIGHT WITHIN REACH.
--- NOTE | 2019-08-26 21:40 | NUR ---
WITH THE HELP OF LEONEL KAMINSKI WE DID A COMPLETE BED CHANGE. CHANGED GOWN, FRESH ICE WATER AND TWO WARM BLANKETS GIVEN. BEDSIDE TABLE AND CALL LIGHT IN REACH.
--- NOTE | 2019-08-26 23:26 | NUR ---
ROUNDED ON pt. RESTING WITH EYES CLOSED, RESPIRATIONS REGULAR AND UNLABORED. CALL LIGHT WITHIN REACH.
--- NOTE | 2019-08-27 01:37 | NUR ---
PERICARE DONE, NEW DEPENDS IN PLACE. ASSESSMENT DONE. BOWLING OR SKATING FRONT DESK CLERK IN ROOM.
--- NOTE | 2019-08-27 01:38 | NUR ---
WITH THE HELP OF HIS RN YAMILEX WE CHANGED PT'S ATTENDS INCONTINENT WITH URINE. REPOSITIONED HIM IN BED. FRESH ICE WATER AND WARM BLANKET GIVEN.BEDSIDE TABLE AND CALL LIGHT IN REACH.
--- NOTE | 2019-08-27 04:40 | NUR ---
ROUNDED ON pt. RESTING WITH EYES CLOSED, RESPIRATIONS REGULAR AND UNLABORED. CALL LIGHT WITHIN REACH.
--- NOTE | 2019-08-27 05:14 | NUR ---
pt RESTED MOST OF SHIFT. INCONT OF URINE, CHANGED FREQUENTLY. DAILY WT. TOLERATING 2GM SODIUM DIET. IV SL. RADHA BOOTS BLE. USES CALL LIGHT APPROPRIATELY.
--- NOTE | 2019-08-27 05:40 | NUR ---
WITH THE HELP OF EVER ANTONIO WE CHANGED PT'S ATTEND INCONTINENT OF URINE. FRESH ICE WATER GIVEN. GARBAGES EMPTIED, ROOM CLEANED UP. BEDSIDE TABLE AND CALL LIGHT WITHIN REACH.
--- NOTE | 2019-08-27 09:10 | NUR ---
PATIENT RESTING IN BED. BEDBATH COMPLETE DONE. ATTEND AND GOWN CHANGED. TWO PERSON ASSISTING. VITAL SIGNS AND I&O DONE. ICE WATER GIVEN. CALL LIGHT WITHIN REACH. NO OTHER NEEDS AT THIS TIME
--- NOTE | 2019-08-27 10:14 | NUR ---
PATIENT AMBULATING IN THE HALLWAY WITH PHYSICAL THERAPIST. LINENS CHANGED
--- NOTE | 2019-08-27 10:30 | NUR ---
PATIENT SITTING UP ON THE EDGE OF THE BED. PATIENT REPOSITIONED SUPINE IN BED. ATTEND CHANGED. TWO PERSON ASSITING. CALL LIGHT WITHIN REACH. NO OTHER NEEDS AT THIS TIME
--- NOTE | 2019-08-27 11:42 | NUR ---
PATIENT RESTING IN BED. PATIENT ATTEND CHANGED. PATIENT TRANSFERRED TO CHAIR. PATIENT USES WALKER. TWO PERSON ASSISTING. WARM BLANKET PROVIDED. CALL LIGHT WITHIN REACH. NO OTHER NEEDS AT THIS TIME
--- NOTE | 2019-08-27 11:44 | NUR ---
PT UP TO CHAIR FOR LUNCH. HEAVY 2 PERSON TRANSFER.
--- NOTE | 2019-08-27 12:00 | NUR ---
SPOKE WITH PATIENT IN ROOM. DISCUSSED HE MAY NEED A STAY AT SNF FOR THERAPY AND WOUND CARE BEFORE HE GOES HOME SAFELY. PATIENT STATES UNDERSTANDING AND AGREES GOING HOME WOULD BE HARD. DISCUSSED THERE IS SNF IN [place] ON[place]. HE STATES HE WANTS TO TALK WITH HIS ABOUT IT. STATES HE WILL TRY TO CALL HER THIS AFTERNOON. PATIENT DENIES QUESTIONS AT THIS TIME.
--- NOTE | 2019-08-27 12:37 | NUR ---
PT LAYING IN BED, TV OFF AND SAID HE WOULD LIKE TO TAKE A REST NOW. I WILL RETURN. SVETLANA WILLIS
--- NOTE | 2019-08-27 13:34 | NUR ---
PATIENT SITTING UP IN CHAIR. VITAL SIGNS AND I&O DONE. LOW SYSTOLIC BLOOD PRESSURE. RN NOTIFIED. CALL LIGHT WITHIN REACH. NO OTHER NEEDS AT THIS TIME
--- NOTE | 2019-08-27 16:08 | NUR ---
PATIENT SITTING UP IN CHAIR. ATTEND CHANGED. PATIENT TRANSFERRED TO BED. TWO PERSON ASSISTING. CALL LIGHT WITHIN REACH. NO OTHER NEEDS AT THIS TIME
--- NOTE | 2019-08-27 17:02 | NUR ---
SPOKE WITH PATIENT AGAIN ABOUT A DECISION ON SNF. HE STATES HE TALKED WITH HIS , VIRGIE AND SHE TALKED WITH AMEE AND THEY WILL HELP PAY FOR A PERSON TO COME CLEAN HOUSE A COUPLE TIMES A WEEK AND HE CAN DO THERAPY AT [facility] (OUTPATIENT OFFICE). DISCUSSED WITH HIM THAT WILL WORK GREAT AFTER HE IS DONE AT SNF CARE. THAT NEITHER OF THESE IS DAILY THERAPY AND DAILY MONITORING OF RN CARE OF WOUNDS AND HIS HEALTH. HE STATES HE WANTS SOMEONE HERE TO CALL HIS ABOUT IT, BECAUSE SHE HAS BEEN IN A PLACE BEFORE AND DIDN'T LIKE IT AND HE THINKS SHE DOESN'T WANT HIM TO GO. DISCUSSED I WILL HAVE MD OR STAFF NURSE CALL HER AND SPEAK WITH HER. HE AGREES TO THIS. STAFF UPDATED.
--- NOTE | 2019-08-27 17:25 | NUR ---
PATIENT RESTING IN BED. VITAL SIGNS AND I&O DONE. CALL LIGHT WITHIN REACH. NO OTHER NEEDS AT THIS TIME
--- NOTE | 2019-08-27 18:29 | NUR ---
PATIENT RESTING IN BED. ATTEND CHANGED. TWO PERSON ASSISTING. CALL LIGHT WITHIN REACH. NO OTHER NEEDS AT THIS TIME
--- NOTE | 2019-08-27 18:58 | NUR ---
RECEIVED REPORT FROM LEONEL ARAUZ. pt RESTING IN BED NO REQUESTS AT THIS TIME. WHITEBOARD UPDATED. CALL LIGHT WITHIN REACH.
--- NOTE | 2019-08-27 20:44 | NUR ---
RECHECKED BLOOD PRESSURE, WNL. pt DENIED ANY SIGNS OR SYMPTOMS OF LOW BP. ASSESSMENT DONE. MEDCIATION GIVEN (SEE MAR). pt DENIED PAIN AT THIS TIME. NO REQUESTS. CALL LIGHT WITHIN REACH.
--- NOTE | 2019-08-27 21:20 | NUR ---
BILINGUAL CUSTOMER SERVICE SPECIALIST ROUNDING NOTE. PT RESTING IN BED, DENIES QUESTIONS OR CONCERNS AT THIS TIME. WHITE BOARD UPDATED, CALL LIGHT IN REACH.
--- NOTE | 2019-08-27 23:16 | NUR ---
ROUNDED ON pt. RESTING WITH EYES CLOSED, RESPIRATIONS REGULAR AND UNLABORED. CALL LIGHT WITHIN REACH.
--- NOTE | 2019-08-28 01:39 | NUR ---
ROUNDED ON pt. RESTING WITH EYES CLOSED, RESPIRATIONS REGULAR AND UNLABORED. CALL LIGHT WITHIN REACH.
--- NOTE | 2019-08-28 03:40 | NUR ---
ROUNDED ON pt. RESTING WITH EYES CLOSED, RESPIRATIONS REGULAR AND UNLABORED. CALL LIGHT WITHIN REACH.
--- NOTE | 2019-08-28 03:55 | NUR ---
Patient has been resting threw out the night, fresh water was given call light in reach.
--- NOTE | 2019-08-28 05:20 | NUR ---
pt CHANGED WITH ASSISTANCE FROM FIRE BOSS. ASSESSMENT DONE. ANSWERED QUESTIONS ABOUT PLACEMENT. pt VERBALIZED UNDERSTANDING, ALL QUESTIONS ANSWERED. FIRE BOSS IN ROOM TO DO VITALS AND WEIGHT. CALL LIGHT WITHIN REACH.
--- NOTE | 2019-08-28 07:34 | NUR ---
RECIEVED BEDSIDE REPORT FROM LEONEL KAMINSKI. PT AWAKE AND ALERT IN BED. PT STATES HE HAS NO QUESTIONS AT THIS TIME. DISCUSSED DISCHARGE PLAN OVERNIGHT.
--- NOTE | 2019-08-28 13:10 | NUR ---
low blood pressure alerted nurse
--- NOTE | 2019-08-28 13:24 | NUR ---
TAXONOMIST REPORTING BLOOD PRESSURE ON 85/49. THIS NURSE TO BEDSIDE. MANUAL CHECK SHOWED 80/50. DR ALDANA NOTIFIED. LEGS ELEVATED AND HEAD LAYED BACK. NO NEW ORDERS. PT PLACED ON CPOX. CLAL LIGHT IN REACH.
--- NOTE | 2019-08-28 13:56 | NUR ---
rechecked bp 79/49. pt states no chest pain, no sob, no dizziness. States he feels fine, was unaware of any low blood pressures.
--- NOTE | 2019-08-28 15:27 | NUR ---
SPOKE WITH DR ALDANA RE: ODOR FROM PT'S LEG WRAPS. RADHA BOOTS ARE SCHEDULED TO BE CHANGED BY DR BURNHAM ON 08/31. DR ALDANA IS OK WITH WAITING ON CHANGING WRAPS.
--- NOTE | 2019-08-28 19:30 | NUR ---
ROUNDED ON pt. WHITEBOARD UPDATED. pt DENIED SIGNS AND SYMPTOMS OF HYPOTENSION. WILL BE BACK TO RECHECK BLOOD PRESSURE pt IS USING URINAL. CALL LIGHT WITHIN REACH.
--- NOTE | 2019-08-28 20:15 | NUR ---
TOOK BP, BELOW PARAMETERS. MD NOTIFIED, OKAY TO HOLD MED. NO FURTHER ORDERS.
--- NOTE | 2019-08-28 20:30 | NUR ---
NOC ENGINEER ROUNDING NOTE. PT RESTING IN BED. ICE WATER REFILLED. PT DENIES QUESTIONS OR CONCERNS AT THIS TIME. CALL LIGHT IN REACH. WHITE BOARD UPDATED.
--- NOTE | 2019-08-28 22:00 | NUR ---
THIS CLINICAL PROJECT MANAGER AND PRIMARY RN YAMILEX CLEANED/ CHANGED PATIENT'S ATTENDS, GOWN AND BED LINEN.
--- NOTE | 2019-08-28 22:10 | NUR ---
ASSESSMENT DONE. CHANGED BED LINENS AND DID PERICARE WITH ASSISTANCE FROM GARDEN TRACTOR MECHANIC. WARM BLANKETS PROVIDED. NO FURTHER REQUESTS AT THIS TIME. CALL LIGHT WITHIN REACH.
--- NOTE | 2019-08-29 00:12 | NUR ---
ROUNDED ON pt. RESTING WITH EYES CLOSED, RESPIRATIONS REGULAR AND UNLABORED. CALL LIGHT WITHIN REACH.
--- NOTE | 2019-08-29 02:30 | NUR ---
WOKE pt TO CHANGE DEPENDS, PERICARE DONE. pt HAD VOIDED IN URINAL WELL. BP CHECKED. WARM BLANKET AND ICE WATER PROVIDED. NO FURTHER REQUESTS AT THIS TIME. CALL LIGHT WITHIN REACH.
--- NOTE | 2019-08-29 04:38 | NUR ---
ROUNDED ON pt RESTING WITH EYES CLOSED, RESPIRATIONS REGULAR AND UNLABORED. CALL LIGHT WITHIN REACH.
--- NOTE | 2019-08-29 04:54 | NUR ---
pt RESTED MOST OF SHIFT. BLOOD PRESSURES SOFT, MD AWARE, NIGHT MED HELD. INCONTINENT OF URINE. DAILY WEIGHT. IV SL. TOLERATING 2GM SODIUM DIET. UNNA BOOT TO BLE. USES CALL LIGHT APPROPRIATELY.
--- NOTE | 2019-08-29 06:57 | NUR ---
pt CHANGED, PERICARE DONE. pt STOOD FOR STANDING WEIGHT. BACK TO BED, VERY HEAVY 2PA. VITALS AND I&O RECORDED. CALL LIGHT WITHIN REACH.
--- NOTE | 2019-08-29 07:19 | NUR ---
RECIEVED BEDSIDE REPORT FROM LEONEL KAMINSKI. PT IN BED AFTER GETTING UP FOR STANDING WEIGHT. PT HAD ORTHOSTATIC EVENT WHILE STANDING, BUT DENIED ANY SYMPTOMS. UNNA BOOTS APPEAR WEEPY, WILL BE CHANGED 08/[address] ALDANA AWARE OF LOW BLOOD PRESSURES, NO NEED TO CALL.
--- NOTE | 2019-08-29 09:17 | NUR ---
PT IS EATING BREAKFAST. APPEARS COMFORTABLE. DENIES SOB, CHEST PAIN, DIZZINESS, LIGHTHEADEDNESS. BP 115/63
--- NOTE | 2019-08-29 14:24 | NUR ---
ENCOURAGED PT AND HIS MOM TO GET UP AND WALK TO HELP MOVE GAS ALONG. THEY AGREED. 2 NORCO GIVEN, FRESH ICE WATER, IV FLUIDS HUNG.
--- NOTE | 2019-08-29 17:30 | NUR ---
PT LAYING IN BED. PT IN ROOM WITH PT. PT HAS NO NEEDS AT THIS TIME.
--- NOTE | 2019-08-29 19:15 | NUR ---
BEDSIDE REPORT RECEIVED FROM OFFGOING RNREGLA. PT RESTING IN BED. DENIES NEEDS AT THIS TIME. CALL LIGHT IN REACH.
--- NOTE | 2019-08-29 22:00 | NUR ---
MD NOTIFIED OF LOW BLOOD PRESSURE. LOPRESSOR TO BE HELD PER ORDER.
--- NOTE | 2019-08-29 22:20 | NUR ---
PT ASSESSMENT COMPLETE. PT DENIES PAIN, NAUSEA, OR SOB. PT EDUCATION REGARDING HOLDING SCHEDULED MEDICATION. CURRENT ILLNESS DISCUSSED WITH PATIENT. PT DENIES QUESTIONS. HR IRREGULAR. LEGS WRAPPED WITH UNABOOTS. SKIN FRAGILE. PT DENIES FURTHER NEEDS AT THIS TIME. CALL LIGHT WITHIN REACH.
--- NOTE | 2019-08-30 00:10 | NUR ---
PT RESTING IN BED WITH EYES CLOSED. RESPIRATIONS EVEN AND UNLABORED. PT APPEARS TO BE SLEEPING. DOES NOT WAKE WHILE PT IN DOORWAY. CALL LIGHT IN REACH.
--- NOTE | 2019-08-30 02:57 | NUR ---
THIS CONSTRUCTION IRONWORKER HELPED LEONEL PENA CLEANED AND CHANGED PATIENT'S INCONTINENT ATTENDS.
--- NOTE | 2019-08-30 03:03 | NUR ---
PT ASSESSMENT COMPLETE. PT DENIES PAIN, NAUSEA, OR SOB. PT ATTENDS CHANGED. ASSESSMENT UNCHANGED FROM PREVIOUS. PT DENIES FURTHER NEEDS AT THIS TIME. CALL LIGHT IN REACH.
--- NOTE | 2019-08-30 05:32 | NUR ---
PT SLEPT WELL THIS SHIFT. HYPOTENSION. METOPROLOL HELD THIS SHIFT. NOTIFIED. PT INCONTINENET OF URINE AT TIMES, ATTENDS IN PLACE. URINAL AT BEDSIDE. UNABOOTS TO BLE'S. ALLEVYN TO COCCYX. DAILY WEIGHT. IV SL.
--- NOTE | 2019-08-30 06:07 | NUR ---
ELECTRICIAN UNDERGROUND AND THIS NUCLEAR CONTROL ROOM OPERATOR ATTEMPT TO STAND PT FOR DAILY WEIGHT. PT STANDS FOR APPROXIMATELY 30 SECONDS, BECOMES PALE AND DIAPHORETIC. PT SAT BACK DOWN ON BED, ASSISTED TO LAY DOWN BY ELECTRICIAN UNDERGROUND AND THIS NUCLEAR CONTROL ROOM OPERATOR. PT BECOMES NAUSEATED WITH DRY HEAVING. BLOOD PRESSURE 120/61. PT DENIES FEELING DIZZY OR LIGHT HEADED. NAUSEA PASSES QUICKLY AND PT'S COLOR RETURNS. PT REPORTS FEELING IMPROVED. BED LINENS CHANGED, PT ASSISTS IN SCOOTING UP IN BED WITH TRAPEZE. PT DENIES FURTHER NEEDS AT THIS TIME. CALL LIGHT IN REACH.
--- NOTE | 2019-08-30 07:30 | NUR ---
RECIEVED BEDSIDE REPORT FROM LEONEL PENA. PT IS RESTING COMFORTABLY IN BED. DR ALDANA AWARE OF BP EPISODE THIS MORNING. BED WEIGHT TAKEN, PT UNABLE TO SAFELY STAND. VOIDING WELL.
--- NOTE | 2019-08-30 08:00 | NUR ---
Patient was awake . Water was full and call light in reach.
--- NOTE | 2019-08-30 08:50 | NUR ---
PT STATES HE HAS NO PAIN THIS MORNING, BUT DIDN'T WANT TO EAT BREAKFAST DUE TO NAUSEA. PT WAS UNABLE TO ARTICULATE EXACTLY WHY HE COULDN'T EAT. BP IS HIGHER IN LEFT ARM THAN RIGHT, 97/64 VS 77/46. PT DRINKING FLUIDS WELL. VOIDING WELL. DECLINED TO GET UP AT THIS TIME. RN SPOKE WITH PT ABOUT USING ITA FOR SAFETY.
--- NOTE | 2019-08-30 10:29 | NUR ---
CARE CONFERENCE MET WITH PATIENT AND VIRGIE. DR ALDANA WAS PULLED AWAY AND COULD NOT ATTEND, BUT SHE HAD SPOKEN WITH THEM THIS WEEKEND AND UPDATED MYSELF BEFORE MEETING. DISCUSSED WHERE HE IS AT THIS TIME WITH ACUTE ILLNESS AND THERAPY. DISCUSSED HE IS GETTING CLOSE TO DISCHARGE BUT THAT HE IS STILL REQUIRING 2-3 MOD/MAX ASSIST IN GETTING IN/OUT BED, TRANSFER TO CHAIR AND USING FWW. DISCUSSED THAT BOTH OT AND PT THINK HE WILL NEED SEVERAL WEEKS OF THERAPY. DISCUSSED THAT HIS TEAM IS RECOMMENDING A STAY AT RETIREMENT FACILITY. DISCUSSED THOSE AVAILABLE IN THE AREA, BOTH PATIENT AND DO NOT WANT HIM TO LEAVE TOWN. SHE WANTS TO BE ABLE TO VISIT HIM DAILY SO THEY REQUEST [facility] BE CONTACTED FOR POSSIBLE STAY. DISCUSSED GENERAL MEDICARE COVERAGE AND HOW WE MOVE SOMEONE TO SNF PLACEMENT. QUESTIONS ANSWERED. CALL PLACED TO MASTER IN CHANCERY AT [facility], MESSAGE LEFT FOR CALL BACK.
--- NOTE | 2019-08-30 10:56 | NUR ---
FAXED CLINICALS TO [facility]. FAX CONFIRMATION RECEIVED 08/30/19 1046AM.
--- NOTE | 2019-08-30 12:43 | NUR ---
PT SITTING IN CHAIR, WANTING TO REST. I WILL CHECK BACK AGAIN LATER
--- NOTE | 2019-08-30 14:22 | NUR ---
PT SLEEPING IN CHAIR, APPEARS COMFORTABLE AT THIS TIME.
--- NOTE | 2019-08-30 18:02 | NUR ---
CALLED TO GIVE ORDER FOR UNNA BOOTS TO BE AT BEDSIDE FOR 0600 DRESSING CHANGE.
--- NOTE | 2019-08-30 19:00 | NUR ---
BEDSIDE REPORT RECEIVED FROM OFFGOING RN. PT RESTING IN BED, CALL LIGHT IN REACH.
[2019-08-30] MEDS ORDERED: TORSEMIDE20 MG PO (19:22)
[2019-08-30] MEDS ORDERED: DOK PLUS TABLE1 EACH PO (19:22)
[2019-08-30] MEDS ORDERED: METOLAZONE2.5 MG PO (19:22)
[2019-08-30] MEDS ORDERED: POTASSIUM CHLO10 ME1 PO (19:22)
--- NOTE | 2019-08-30 21:29 | NUR ---
PT ASSESSMENT COMPLETE. PT DENIES PAIN, NAUSEA, OR SOB. RLL WITH CRACKLES, DO NOT CLEAR WITH COUGH. PT REPORTS ATTEND DRY AT THIS TIME. PT DENIES FURTHER NEEDS. CALL LIGHT WITHIN REACH.
--- NOTE | 2019-08-31 00:15 | NUR ---
PT RESTING IN BED AWAKE. DENIES HAVING TROUBLE FALLING ASLEEP, "YOU JUST CAUGHT ME AWAKE". DENIES NEEDS AT THIS TIME. CALL LIGHT IN REACH.
--- NOTE | 2019-08-31 05:11 | NUR ---
PT ASSESSMENT COMPLETE. PT RESTING IN BED AWAKE. PT DENIES PAIN, NAUSEA, OR SOB. CRACKLES CONTINUE TO RLL, DIM IN LLL. PT DENIES COUGH. GENERALIZED EDEMA TO BLE'S. ATTENDS IN PLACE FOR INCONTINENCE. PT DENIES NEEDS AT THIS TIME. CALL LIGHT IN REACH.
--- NOTE | 2019-08-31 05:56 | NUR ---
PT RESTED WELL THIS SHIFT. NO PAIN, NAUSEA, OR SOB. PT INCONTINENT OF URINE AT TIMES. ATTENDS IN PLACE. USES URINAL OCCASIONALLY. UNABOOTS TO BLE'S, TO BE CHANGED BY DR. BURNHAM TODAY. REGAN TO DOMINIQUE. DAILY WEIGHT, BED WEIGHT 223.5. IV JACKY. ITA TRANSFER.
--- NOTE | 2019-08-31 07:21 | NUR ---
PATIENTS BS IS ABOVE NL. DR ALDANA NOTIFIED. SS GIVEN PER ORDER FROM DR ALDANA. PATIENT IS SITTING UP IN RECLINER. PATIENT DENIES ANY PAIN. NO NEEDS NOTED. CALL LIGHT IN REACH.
--- NOTE | 2019-08-31 09:15 | NUR ---
SPOKE WITH MUSIC PROFESSIONALS AT [facility]. THEY WILL ACCEPT PATIENT TODAY. THEY WILL ARRANGE TRANSPORTATION. ORDERS FAXED. FAX CONFIRMATION RECEIVED. STAFF UPDATED.
--- NOTE | 2019-08-31 10:15 | NUR ---
Pt sitting on edge of bed. Ready to dc to detention. Denies needs. Pt does not have a wc here and I will call [facility] and ask they bring one for his transport.
--- NOTE | 2019-08-31 12:32 | NUR ---
PROVIDED TELEPHONE REPORT TO GINETTE CASTANEDA, ANSWERED QUSTIONS AND CONCERNS. PROVIDED WITH SCRUBS FROM HOSPITAL. CALL TO AND INFORMED HER PATIENT WOULD NEED CLEAN CLOTHES DELIVERED TO [place].
== END 2019-08-31 12:05 | DRG 291 ==
LOC: ED 11:13 → MS 19:08 → CCU 19:08 → MS 08-25 14:30
PROVIDERS: ADMIT Student in an Organized Health Care Education/Training Program
DX: I50.33 Acute on chronic diastolic (congestive) heart failure (principal); J96.21 Acute and chronic respiratory failure with hypoxia; L97.211 Non-pressure chronic ulcer of right calf limited to breakdown of skin; L97.221 Non-pressure chronic ulcer of left calf limited to breakdown of skin; I48.91 Unspecified atrial fibrillation; E11.22 Type 2 diabetes mellitus with diabetic chronic kidney disease; N18.3 Chronic kidney disease, stage 3 (moderate); I89.0 Lymphedema, not elsewhere classified; G47.33 Obstructive sleep apnea (adult) (pediatric); E78.5 Hyperlipidemia, unspecified; G25.81 Restless legs syndrome; F39 Unspecified mood [affective] disorder; R39.15 Urgency of urination; D63.1 Anemia in chronic kidney disease; I83.012 Varicose veins of right lower extremity with ulcer of calf; I83.022 Varicose veins of left lower extremity with ulcer of calf; Z88.8 Allergy status to other drugs, medicaments and biological substances; Z79.82 Long term (current) use of aspirin; Z91.14 Patient's other noncompliance with medication regimen; Z79.899 Other long term (current) drug therapy
CPT/HCPCS: 36415; 71045; 78582; 80048; 80053; 82728; 83540; 83735; 83880; 84466; 84484; 85025; 85379; 90662; 93005; 93010; 96374; 97110; 97116; 97162; 97166; 97530; 97535; 99285-25; A9539; A9540; G0008; J1650; J2250; J3010; J3475; J7040

== ENCOUNTER 2019-10-13 14:11 | Emergency (ER) | payer MEDICARE ==
[~2019-10-13] VITALS: Ht 167.6 cm; Wt 101.3 kg
--- OUTSIDE RECORDS SUMMARY | ~2019-10-13 | XMS | Encounter Summary ---
Demographics + + + | Address | [address] | | | [place] [address] | + + + | Home Phone | | + + + | Preferred Language | Unknown | + + + | Marital Status | | + + + | [employer] Affiliation | 1041 | + + + | Race | Unknown | + + + | Ethnic Group | Unknown | + + + Author + + + | Author | [facility] | | | and [place] | + + + | Organization | [facility] | | | and [...] Team Providers + +------+ + | Care Public Health Veterinarian Name | Role | Phone | + +------+ + | Kushal Costa MD | PCP | | + +------+ + Encounter Details +--------+ + + + + | Date | Type | Department | Care Team | Description | +--------+ + + + + | 01/23/ | Orders Only | [facility] | Hilario Aburto V, | | | 2016 | | CONVERSION 888 | MD [address] | | | | | [address] | [address] [place] | | | | | [place], [place] | [address] | | | | | [address] | | | | | | [phone] | | | +--------+ + + + [...] + + documented as of this encounter Plan of Treatment +--------+ + + + + | Date | Type | Specialty | Care Team | Description | +--------+ + + + + | 11/29/ | Office | Nephrology | Danny Gandara MD | | | 2019 | Visit | | [address] [facility] | | | | | | [address] [facility] | | | | | | [address] | | | | | | | | +--------+ + + + + | 01/09/ | Procedure | Cardiology | | | | 2019 | visit | | | | +--------+ + + + + | 04/10/ | Procedure | Cardiology | | | | 2019 | visit | | | | +--------+ + + + + documented as of this encounter Procedures + +--------+ + + + | Procedure Name | Priori | Date/Time | Associated Diagnosis | Comments | | | ty | | | | + +--------+ + + + | ECHO INTERPRETATION | Routin | 01/23/2017 | | Results for this | | OF OUTSIDE FILMS | e | 3:24 PM | | procedure are in the | | | | PDT | | results section. | + +--------+ + + + documented in this encounter Results ECHO Interpretation of Outside Films (01/23/2017 3:24 PM PDT) + + | Specimen | + + | | + + + + + | Impressions | Performed At | + + + | 1. The left ventricle is boredeline dilated. Mild concentric | | | hypertrophy and mild global impaired systolic function EF 45-50%. 2. | | | There is septal flattening in diastole and systole which is consistent | | | with severe pulmonary hypertension. 3. Restrictive LV diastolic | | | filling pattern, consistent with elevated LA pressure and severe | | | dysfunction (grade III). 4. The right ventricle is severely enlarged | | | with moderately impaired systolic function. 5. Mild tricuspid | | | regurgitation with severe pulmonary hypertension RVSP 77 mmHg. 6. | | | There is a trivial pericardial effusion present. 7. The ascending | | | aorta is dilated measuring up to 4.0cm. | | + + + + + + | Narrative | Performed At | + + + | Patient Name: Michael Joshi Date of : 1940 | | | Performing Physician: Sparkle Brady | | | | | | INDICATIONS Heart failure CONCLUSIONS | | | 1. The left ventricle is boredeline dilated. Mild concentric | | | hypertrophy and mild global impaired systolic function EF 45-50%. 2. | | | There is septal flattening in diastole and systole which is consistent | | | with severe pulmonary hypertension. 3. Restrictive LV diastolic | | | filling pattern, consistent with elevated LA pressure and severe | | | dysfunction (grade III). 4. The right ventricle is severely enlarged | | | with moderately impaired systolic function. 5. Mild tricuspid | | | regurgitation with severe pulmonary hypertension RVSP 77 mmHg. 6. | | | There is a trivial pericardial effusion present. 7. The ascending | | | aorta is dilated measuring up to 4.0cm. FINDINGS -------- ECG | | | rhythm: Atrial fibrillation. Study: A 2-dimensional transthoracic | | | echocardiogram with m-mode, spectral and color flow Doppler was | | | perfomed. Study: This was a technically adequate study. Left | | | Ventricle: Overall left ventricular systolic function is mildly | | | impaired with, an EF between 45 - 50 %. Left Ventricle: The left | | | ventricle is mildly dilated. Left Ventricle: There is mild concentric | | | left ventricular hypertrophy. Left Ventricle: There is mild global | | | hypokinesis of LV contractility. Left Ventricle: There is septal | | | flattening in diastole and systole which is consistent with right | | | ventricular pressure and volume overload. Left Ventricle: Restrictive | | | LV diastolic filling pattern, consistent with elevated LA pressure | | | and severe dysfunction (grade III). Right Ventricle: The right | | | ventricle is severely enlarged. Right Ventricle: The right | | | ventricular systolic function is moderately impaired. Right | | | Ventricle: Pacer/ICD wire seen. Right Ventricle: A flattened D - | | | shaped septum is seen in systole and diastole, which is consistent | | | with right ventricular pressure and volume overload. Left Atrium: | | | The left atrium is markedly enlarged. Right Atrium: The right atrium | | | is markedly enlarged. Right Atrium: Pacemaker wire seen in the right | | | atrial cavity. Aortic Valve: Aortic valve is trileaflet. Aortic | | | Valve: There is mild aortic valve sclerosis without stenosis. Aortic | | | Valve: There is mild aortic regurgitation. Aortic Valve: The aortic | | | pressure half-time by doppler is 676ms. Mitral Valve: There is trace | | | mitral regurgitation. Mitral Valve: Mild mitral annular calcification | | | present. Tricuspid Valve: The tricuspid valve appears structurally | | | normal. At least m Tricuspid Valve: Mild tricuspid regurgitation | | | present. Tricuspid Valve: There is severe pulmonary hypertension. | | | Tricuspid Valve: The right ventricular systolic pressure (pulmonary | | | artery systolic pressure), as measured by Doppler, is 77.05mmHg. | | | Pulmonic Valve: The pulmonic valve is normal. Pulmonic Valve: Trace | | | pulmonic regurgitation. Pericardium: There is a trivial pericardial | | | effusion present. Pericardium: No pleural effusion seen. | | | IVC/Hepatic Veins: The IVC is dilated (>2.5cm) and collapses <50% with | | | sniff, consistent with central venous pressures of 15-20mmHg. Aorta: | | | The ascending aorta is dilated measuring up to 4.0cm. | | | MEASUREMENTS Ao asc: 3.96 cm Ao Diam: 4.09 cm | | | Ao st junct: 3.84 cm IVC: 3.16 cm LA Diam: 5.75 cm LA | | | Major: 8.69 cm EDV(Teich): 165.03 ml IVSd: 1.17 cm LVIDd: | | | 5.77 cm LVPWd: 1.18 cm LVOT Area: 3.98 cm2 LVOT Diam: | | | 2.25 cm %FS: 22.85 % EF(Teich): 45.24 % ESV(Teich): 90.36 | | | ml LVIDs: 4.45 cm SV(Teich): 74.67 ml RA Major: 8.54 cm | | | RV Major: 8.46 cm RV Minor: 5.96 cm RVIDd: 4.88 cm LVEF | | | MOD A2C: 54.40 % SV MOD A2C: 87.99 ml LVEF MOD A4C: 43.83 % | | | SV MOD A4C: 53.25 ml EF Biplane: 48.60 % LVEDV MOD BP: | | | 142.67 ml LVESV MOD BP: 73.33 ml LVEDV MOD A2C: 161.75 ml | | | LVLd A2C: 8.54 cm LVEDV MOD A4C: 121.48 ml LVLd A4C: 8.21 | | | cm LVESV MOD A2C: 73.75 ml LVLs A2C: 7.45 cm LVESV MOD A4C: | | | 68.22 ml LVLs A4C: 8.06 cm LAESV(A-L): 145.10 ml LAESV | | | Index (A-L): 63.36 ml/m2 LAAs A2C: 31.84 cm2 LAESV A-L A2C: | | | 132.77 ml LALs A2C: 6.48 cm LAAs A4C: 34.80 cm2 LAESV A-L | | | A4C: 118.78 ml LALs A4C: 8.65 cm RAAs: 49.96 cm2 RAESV | | | A-L: 259.12 ml RAESV MOD: 251.38 ml RALs: 8.22 cm AR Dec | | | Randolph: 1.93 m/s2 AR Dec Time: 2330.38 ms AR maxP.34 | | | mmHg AR PHT: 675.81 ms AR Vmax: 4.50 m/s AV maxP.00 | | | mmHg AV meanP.60 mmHg AV Vmax: 1.58 m/s AV Vmean: 0.98 | | | m/s AV VTI: 29.76 cm ARIANNA Vmax: 2.61 cm2 ARIANNA (VTI): 2.12 | | | cm2 AVAI Vmax: 0.00 cm2/m2 AVAI (VTI): 0.00 cm2/m2 LVOT | | | maxP.35 mmHg LVOT meanP.30 mmHg LVSI Dopp: 27.56 | | | ml/m2 LVSV Dopp: 63.13 ml LVOT Vmax: 1.03 m/s LVOT Vmean: | | | 0.68 m/s LVOT VTI: 15.85 cm MR dp/dt: 1864.01 mmHg/s MV A | | | Roberto: 0.02 m/s MV DecT: 162.94 ms MV E Roberto: 1.53 m/s MV E/A | | | Ratio: 66.42 MV PHT: 47.25 ms MVA By PHT: 4.65 cm2 Septal | | | e': 0.05 m/s Septal E/e': 30.24 Lateral e': 0.10 m/s | | | Lateral E/e': 14.53 RAP: 20 mmHg RVSP: 77.04 mmHg TR | | | maxP.04 mmHg TR Vmax: 3.77 m/s [employer] Consultant: MIGEL | | | Authenticated by: Sparkle Brady Report Date/Time: 01-24-2017 | | | 00:37:15 | | + + + + + | Procedure Note | + + | Edgardo Piper Conversion - 06/10/2019 6:55 PM PDT Patient Name: Kel Joshi of | | : 1940 Performing Physician: Sparkle | | [facility] INDICATIONS------ | | -----Heart failure CONCLUSIONS 1. The left ventricle is boredeline dilated. | | Mild concentric hypertrophy and mild global impaired systolic function EF 45-50%.2. | | There is septal flattening in diastole and systole which is consistent with severe | | pulmonary hypertension.3. Restrictive LV diastolic filling pattern, consistent with | | elevated LA pressure and severe dysfunction (grade III).4. The right ventricle is | | severely enlarged with moderately impaired systolic function.5. Mild tricuspid | | regurgitation with severe pulmonary hypertension RVSP 77 mmHg.6. There is a trivial | | pericardial effusion present.7. The ascending aorta is dilated measuring up to 4.0cm. | | FINDINGS--------ECG rhythm: Atrial fibrillation.Study: A 2-dimensional transthoracic | | echocardiogram with m-mode, spectral and color flow Doppler was perfomed.Study: This was | | a technically adequate study.Left Ventricle: Overall left ventricular systolic function | | is mildly impaired with, an EF between 45 - 50 %.Left Ventricle: The left ventricle is | | mildly dilated.Left Ventricle: There is mild concentric left ventricular | | hypertrophy.Left Ventricle: There is mild global hypokinesis of LV contractility.Left | | Ventricle: There is septal flattening in diastole and systole which is consistent with | | right ventricular pressure and volume overload.Left Ventricle: Restrictive LV diastolic | | filling pattern, consistent with elevated LA pressure and severe dysfunction (grade | | III).Right Ventricle: The right ventricle is severely enlarged.Right Ventricle: The | | right ventricular systolic function is moderately impaired.Right Ventricle: Pacer/ICD | | wire seen.Right Ventricle: A flattened D - shaped septum is seen in systole and | | diastole, which is consistent with right ventricular pressure and volume overload.Left | | Atrium: The left atrium is markedly enlarged.Right Atrium: The right atrium is markedly | | enlarged.Right Atrium: Pacemaker wire seen in the right atrial cavity.Aortic Valve: | | Aortic valve is trileaflet.Aortic Valve: There is mild aortic valve sclerosis without | | stenosis.Aortic Valve: There is mild aortic regurgitation.Aortic Valve: The aortic | | pressure half-time by doppler is 676ms.Mitral Valve: There is trace mitral | | regurgitation.Mitral Valve: Mild mitral annular calcification present.Tricuspid Valve: | | The tricuspid valve appears structurally normal. At least mTricuspid Valve: Mild | | tricuspid regurgitation present.Tricuspid Valve: There is severe pulmonary | | hypertension.Tricuspid Valve: The right ventricular systolic pressure (pulmonary artery | | systolic pressure), as measured by Doppler, is 77.05mmHg.Pulmonic Valve: The pulmonic | | valve is normal.Pulmonic Valve: Trace pulmonic regurgitation.Pericardium: There is a | | trivial pericardial effusion present.Pericardium: No pleural effusion seen.IVC/Hepatic | | Veins: The IVC is dilated (>2.5cm) and collapses <50% with sniff, consistent with | | central venous pressures of 15-20mmHg.Aorta: The ascending aorta is dilated measuring up | | to 4.0cm. MEASUREMENTS Ao asc: 3.96 cmAo Diam: 4.[address] junct: | | 3.84 cmIVC: 3.16 cmLA Diam: 5.75 cmLA Major: 8.69 cmEDV(Teich): 165.03 mlIVSd: | | 1.17 cmLVIDd: 5.77 cmLVPWd: 1.18 cmLVOT Area: 3.98 [id number] Diam: 2.25 cm%FS: | | 22.85 %EF(Teich): 45.24 %ESV(Teich): 90.36 mlLVIDs: 4.45 cmSV(Teich): 74.67 mlRA | | Major: 8.54 cmRV Major: 8.46 cmRV Minor: 5.96 cmRVIDd: 4.88 cmLVEF MOD A2C: | | 54.40 %SV MOD A2C: 87.99 mlLVEF MOD A4C: 43.83 %SV MOD A4C: 53.25 mlEF Biplane: | | 48.60 %LVEDV MOD BP: 142.67 mlLVESV MOD BP: 73.33 mlLVEDV MOD A2C: 161.75 mlLVLd | | A2C: 8.54 cmLVEDV MOD A4C: 121.48 mlLVLd A4C: 8.21 cmLVESV MOD A2C: 73.75 mlLVLs | | A2C: 7.45 cmLVESV MOD A4C: 68.22 mlLVLs A4C: 8.06 cmLAESV(A-L): 145.10 mlLAESV | | Index (A-L): 63.36 ml/m2LAAs A2C: 31.84 [id number] A-L A2C: 132.77 mlLALs A2C: | | 6.48 cmLAAs A4C: 34.80 [id number] A-L A4C: 118.78 mlLALs A4C: 8.65 cmRAAs: 49.96 | | [id number] A-L: 259.12 mlRAESV MOD: 251.38 mlRALs: 8.22 cmAR Dec Randolph: 1.93 | | m/s2AR Dec Time: 2330.38 msAR maxP.34 mmHgAR PHT: 675.81 msAR Vmax: 4.50 | | m/Davie maxP.00 mmHgAV meanP.60 mmHgAV Vmax: 1.58 m/Davie Vmean: 0.98 m/Davie | | VTI: 29.76 cmAVA Vmax: 2.61 cm2AVA (VTI): 2.12 [id number] Vmax: 0.00 cm2/m2AVAI | | (VTI): 0.00 cm2/m2LVOT maxP.35 mmHgLVOT meanP.30 mmHgLVSI Dopp: 27.56 | | ml/m2LVSV Dopp: 63.13 mlLVOT Vmax: 1.03 m/sLVOT Vmean: 0.68 m/sLVOT VTI: 15.85 | | cmMR dp/dt: 1864.01 mmHg/sMV A Roberto: 0.02 m/sMV DecT: 162.94 msMV E Roberto: 1.53 | | m/sMV E/A Ratio: 66.42MV PHT: 47.25 msMVA By PHT: 4.65 ha5Vritcz e': 0.05 | | m/sSeptal E/e': 30.24Lateral e': 0.10 m/sLateral E/e': 14.53RAP: 20 mmHgRVSP: | | 77.04 mmHgTR maxP.04 mmHgTR Vmax: 3.77 m/s [employer] Consultant: GALLOuthenticated by: | | Sparkle NavarrokipnukraReport Date/Time: 01-24-2017 00:37:15 IMPRESSION: 1. The left ventricle | | is boredeline dilated. Mild concentric hypertrophy and mild global impaired systolic | | function EF 45-50%.2. There is septal flattening in diastole and systole which is | | consistent with severe pulmonary hypertension.3. Restrictive LV diastolic filling | | pattern, consistent with elevated LA pressure and severe dysfunction (grade III).4. The | | right ventricle is severely enlarged with moderately impaired systolic function.5. Mild | | tricuspid regurgitation with severe pulmonary hypertension RVSP 77 mmHg.6. There is a | | trivial pericardial effusion present.7. The ascending aorta is dilated measuring up to | | 4.0cm. | |LVPWd: 1.18 cm | |LVOT Area: 3.98 cm2 | |LVOT Diam: 2.25 cm | |%FS: 22.85 % | |EF(Teich): 45.24 % | |ESV(Teich): 90.36 ml | |LVIDs: 4.45 cm | |SV(Teich): 74.67 ml | |RA Major: 8.54 cm | |RV Major: 8.46 cm | |RV Minor: 5.96 cm | |RVIDd: 4.88 cm | |LVEF MOD A2C: 54.40 % | |SV MOD A2C: 87.99 ml | |LVEF MOD A4C: 43.83 % | |SV MOD A4C: 53.25 ml | |EF Biplane: 48.60 % | |LVEDV MOD BP: 142.67 ml | |LVESV MOD BP: 73.33 ml | |LVEDV MOD A2C: 161.75 ml | |LVLd A2C: 8.54 cm | |LVEDV MOD A4C: 121.48 ml | |LVLd A4C: 8.21 cm | |LVESV MOD A2C: 73.75 ml | |LVLs A2C: 7.45 cm | |LVESV MOD A4C: 68.22 ml | |LVLs A4C: 8.06 cm | |LAESV(A-L): 145.10 ml | |LAESV Index (A-L): 63.36 ml/m2 | |LAAs A2C: 31.84 cm2 | |LAESV A-L A2C: 132.77 ml | |LALs A2C: 6.48 cm | |LAAs A4C: 34.80 cm2 | |LAESV A-L A4C: 118.78 ml | |LALs A4C: 8.65 cm | |RAAs: 49.96 cm2 | |RAESV A-L: 259.12 ml | |RAESV MOD: 251.38 ml | |RALs: 8.22 cm | |AR Dec Randolph: 1.93 m/s2 | |AR Dec Time: 2330.38 ms | |AR maxP.34 mmHg | |AR PHT: 675.81 ms | |AR Vmax: 4.50 m/s | |AV maxP.00 mmHg | |AV meanP.60 mmHg | |AV Vmax: 1.58 m/s | |AV Vmean: 0.98 m/s | |AV VTI: 29.76 cm | |ARIANNA Vmax: 2.61 cm2 | |ARIANNA (VTI): 2.12 cm2 | |AVAI Vmax: 0.00 cm2/m2 | |AVAI (VTI): 0.00 cm2/m2 | |LVOT maxP.35 mmHg | |LVOT meanP.30 mmHg | |LVSI Dopp: 27.56 ml/m2 | |LVSV Dopp: 63.13 ml | |LVOT Vmax: 1.03 m/s | |LVOT Vmean: 0.68 m/s | |LVOT VTI: 15.85 cm | |MR dp/dt: 1864.01 mmHg/s | |MV A Roberto: 0.02 m/s | |MV DecT: 162.94 ms | |MV E Roberto: 1.53 m/s | |MV E/A Ratio: 66.42 | |MV PHT: 47.25 ms | |MVA By PHT: 4.65 cm2 | |Septal e': 0.05 m/s | |Septal E/e': 30.24 | |Lateral e': 0.10 m/s | |Lateral E/e': 14.53 | |RAP: 20 mmHg | |RVSP: 77.04 mmHg | |TR maxP.04 mmHg | |TR Vmax: 3.77 m/s | | | |[employer] Consultant: MIGEL | |Authenticated by: Sparkle Brady | |Report Date/Time: 01-24-2017 00:37:15 | | | |IMPRESSION: | |1. The left ventricle is boredeline dilated. Mild concentric hypertrophy and mild global im paired systolic function EF 45-50%. | |2. There is septal flattening in diastole and systole which is consistent with severe pulmo nary hypertension. | |3. Restrictive LV diastolic filling pattern, consistent with elevated LA pressure and sever e dysfunction (grade III). | |4. The right ventricle is severely enlarged with moderately impaired systolic function. | |5. Mild tricuspid regurgitation with severe pulmonary hypertension RVSP 77 mmHg. | |6. There is a trivial pericardial effusion present. | |7. The ascending aorta is dilated measuring up to 4.0cm. | + + documented in this encounter Visit Diagnoses Not on filedocumented in this encounter"
--- OUTSIDE RECORDS SUMMARY | ~2019-10-13 | XMS | Encounter Summary ---
Demographics + + + | Address | [address] | | | [place] [address] | + + + | Home Phone | | + + + | Preferred Language | Unknown | + + + | Marital Status | | + + + | Shinto Affiliation | 1041 | + + + | Race | Unknown | + + + | Ethnic Group | Unknown | + + + Author + + + | Author | [facility] | | | and [place] | + + + | Organization | [facility] | | | and [...] Team Providers + +------+ + | Care Animal Cruelty Investigation Supervisor Name | Role | Phone | + +------+ + | Kushal Costa MD | PCP | | + +------+ + Reason for Visit Service/Procedure (Routine) +--------+--------+ + + + + | Status | Reason | Specialty | Diagnoses / | Referred By | Referred To | | | | | Procedures | Contact | Contact | +--------+--------+ + + + + | Closed | | Radiology | Diagnoses | | [facility] | | | | | Lumbar | [place], | [address] | | | | | radiculopath | Chris Storm MD | [place], | | | | | y | [address] | [place] | | | | | Procedures | [place] | [address] | | | | | [place] INJECT | [place], [place] | Phone: | | | | | ANES/STEROID | [address] | [phone] | | | | | FORAMEN | Phone: | Fax: | | | | | LUMBAR/SACRA | [phone] | [phone] | | | | | L W IMG | Fax: | | | | | | GUIDE ,1 | [phone] | | | | | | LEVEL FL | | | | | | | TRIAMCINOLON | | | | | | | E ACET INJ | | | | | | | NOS, 10 MG | | | | | | | Bilateral | | | | | | | L5-S1 TFESI | | | +--------+--------+ + + + + Encounter Details +--------+ + + + + | Date | Type | Department | Care Team | Description | +--------+ + + + + | 07/13/ | Hospital | [facility] | [place], | Low back pain, | | 2017 | Encounter | MED CTR XRAY [address] | KOKI Vasquez [address] | unspecified back | | | | [place] | [facility], | pain laterality, | | | | [place] [address] | [place] [address] | unspecified | | | | [phone] | [phone] | chronicity, with | | | | | | sciatica presence | | | | | [employer] [facility]ist, [place]s | unspecified; DDD | | | | | | (degenerative disc | | | | | | disease), lumbar; | | | | | | Lumbar | | | | | | radiculopathy; | | | | | | Spinal stenosis at | | | | | | L4-L5 level | +--------+ + + + + Social [...] this encounter Last Filed Vital Signs + +---------+ + + | Vital Sign | Reading | Time Taken | Comments | + +---------+ + + | Blood Pressure | 146/81 | 07/13/2018 1:54 PM | | | | | PDT | | + +---------+ + + | Pulse | 77 | 07/13/2018 1:54 PM | | | | | PDT | | + +---------+ + + | Temperature | - | - | | + +---------+ + + | Respiratory Rate | - | - | | + +---------+ + + | Oxygen Saturation | - | - | | + +---------+ + + | Inhaled Oxygen | - | - | | | Concentration | | | | + +---------+ + + | Weight | - | - | | + +---------+ + + | Height | - | - | | + +---------+ + + | Body Mass Index | - | - | | + +---------+ + + documented in this encounter Medications at Time of Discharge + + + +---------+ + + | Medication | Sig | Dispensed | Refills | Start | End Date | | | | | | Date | | + + + +---------+ + + | aspirin 81 mg EC | Take 81 mg by mouth | | 0 | | | | tablet | Daily. | | | | | + + + +---------+ + + | cholecalciferol | Take 1,000 Units by | | 0 | | | | (VITAMIN D-3) 1,000 | mouth Daily. | | | | | | units tablet | | | | | | + + + +---------+ + + | metoprolol | Take 50 mg by mouth | | 0 | | | | tartrate (LOPRESSOR) | 2 times daily. | | | | | | 50 mg tablet | | | | | | + + + +---------+ + + | allopurinol | Take 100 mg by mouth | | 0 | 10/27/19 | | | (ZYLOPRIM) 100 mg | Daily. | | | 18 | 9 | | tablet | | | | | | + + + +---------+ + + | amLODIPine | Take 5 mg by mouth | | 0 | | | | (NORVASC) 5 mg | Daily. | | | | 9 | | tablet | | | | | | + + + +---------+ + + | Bioflavonoid | Take by mouth. | | 0 | | | | Products (VITAMIN C) | | | | | 9 | | CHEW | | | | | | + + + +---------+ + + | | Take 1 tablet by | | 0 | | | | HYDROcodone-acetamin | mouth every 6 hours | | | | 9 | | ophen (NORCO) | as needed. | | | | | | 7.5-325 mg per | | | | | | | tablet | | | | | | + + + +---------+ + + | metOLazone | 1 tablet Orally one | | 0 | | | | (ZAROXOLYN) 5 MG | hour before | | | | 9 | | tablet | torsemide | | | | | + + + +---------+ + + | mometasone | Apply 1 Application | | 0 | | | | (ELOCON) 0.1 % cream | topically Daily. | | | | 9 | + + + +---------+ + + | PARoxetine (PAXIL) | Take 20 mg by mouth | | 0 | | | | 20 mg tablet | Daily. | | | | 9 | + + + +---------+ + + | simvastatin | Take 20 mg by mouth | | 0 | | | | (ZOCOR) 20 mg tablet | Daily. | | | | 9 | + + + +---------+ + + | terazosin (HYTRIN) | Take 1 mg by mouth | | 0 | 12/23/19 | | | 1 mg capsule | Daily. | | | 18 | 9 | + + + +---------+ + + documented as of this encounter Plan of Treatment +--------+ + + + + | Date | Type | Specialty | Care Team | Description | +--------+ + + + + | 11/29/ | Office | Nephrology | Danny Gandara MD | | | 2019 | Visit | | [address] [place] | | | | | | [address] [place] | | | | | | [address] | | | | | | | [...] | + +--------+ + + + | FL EPIDURAL STEROID | Routin | 07/13/2018 | Low back pain, | Results for this | | INJECTION LUMBAR | e | 1:53 PM | unspecified back | procedure are in the | | TRANSFORAMINAL | | PDT | pain laterality, | results section. | | | | | unspecified | | | | | | chronicity, with | | | | | | sciatica presence | | | | | | unspecified DDD | | | | | | (degenerative disc | | | | | | disease), lumbar | | | | | | Lumbar radiculopathy | | | | | | Spinal stenosis at | | | | | | L4-L5 level | | + +--------+ + + + documented in this encounter Results FL BENITEZ Lumbar Transforaminal (07/13/2018 1:53 PM PDT) + + | Specimen | + + | | + + + + -+ | Narrative | Performed At | + + -+ | 07/13/2018 | [facility] | | Bilateral Transforaminal Epidural Steroid Injections Diagnosis: Lumbar | | | radiculopathy ICD-10 Code M54.16 Michael Joshi presents to the | | | fluoroscopy suite for fluoroscopically-guided bilateral L5-S1 | | | transforaminal epidural steroid injections as part of conservative | | | management for chronic pain with lumbar radiculopathy and degenerative | | | disc disease. After informed consent was obtained, the patient lay in | | | the prone position on the fluoroscopy table. The areas were | | | identified under fluoroscopic guidance. The areas were prepped and | | | draped in sterile fashion. A 25-gauge, 1.5-inch needle was inserted | | | into each region and approximately 3 mL of buffered 1% lidocaine was | | | infused. Then, a 22-gauge spinal needle was inserted into the | | | posterior superior transforaminal space bilaterally and advanced into | | | the epidural space under fluoroscopic guidance. Confirmation into the | | | epidural space was obtained with infusion of approximately 1 mL of | | | Omnipaque contrast which showed epidural flow as well as nerve sheath | | | flow. Then, a combination of 2 mL of 1% lidocaine and 1.5 mL of 10 | | | mg/mL dexamethasone was infused, divided between the two sides. The | | | patient tolerated the procedure well without complications. Pre- and | | | post-procedure blood pressures were stable. The patient was given | | | verbal as well as written follow-up instructions. Prior to the start | | | of the procedure, the following were performed and/or verified, | | | including correct patient identity, correct site/side marked and | | | visible, agreement on the procedure to be done, correct patient | | | positioning and an accurate procedure consent form. Any safety | | | precautions based on clinical history and/or medication use have been | | | addressed. I personally performed the procedure above. Estimated blood | | | loss: MinimalComplications: NoneFindings: As expectedAnesthesia: | | | Local 1% Lidocaine | | |visible, agreement on the procedure to be done, correct patient | | |positioning and an accurate procedure consent form. Any safety precautions | | |based on clinical history and/or medication use have been addressed. I | | |personally performed the procedure above. | | | | | |Estimated blood loss: Minimal | | |Complications: None | | |Findings: As expected | | |Anesthesia: Local 1% Lidocaine | | | | | | | | + + -+ + +---------+ + + | Performing | Address | City[facility]State[facility] | Phone Number | | Organization | | | | + +---------+ + + | [facility] | | | | + +---------+ + + documented in this encounter Visit Diagnoses + + | Diagnosis | + + | Low back pain, unspecified back pain laterality, unspecified chronicity, with sciatica | | presence unspecified | + + | DDD (degenerative disc disease), lumbar Degeneration of lumbar or lumbosacral | | intervertebral disc | + + | Lumbar radiculopathy Thoracic or lumbosacral neuritis or radiculitis, unspecified | + + | Spinal stenosis at L4-L5 level | + + documented in this encounter Administered Medications + +--------+ +-------+------+------+ | Medication Order | MAR | Action | Dose | Rate | Site | | | Action | Date | | | | + +--------+ +-------+------+------+ | dexamethasone (PF) 10 mg/mL | Given | 07/13/20 | 15 mg | | | | injection 15 mg 15 mg, Other, | | 18 1:20 | | | | | ONCE, 07/13/18 at 1330, For 1 | | PM PDT | | | | | dose | | | | | | + +--------+ +-------+------+------+ +---+---+ | | | +---+---+ + +-------+ +-------+---+---+ | iohexol (OMNIPAQUE 300) 300 | Given | 07/13/20 | 4 mLs | | | | mg/mL injection 4 mL 4 mL, | | 18 1:20 | | | | | Other, ONCE, 07/13/18 at 1345, | | PM PDT | | | | | For 1 dose | | | | | | + +-------+ +-------+---+---+ +---+---+ | | | +---+---+ + +-------+ +-------+---+---+ | lidocaine (PF) 1% injection 2 | Given | 07/13/20 | 2 mLs | | | | mL 2 mL, Other, ONCE, Mon | | 18 1:20 | | | | | 07/13/18 at 1330, For 1 dose | | PM PDT | | | | + +-------+ +-------+---+---+ +---+---+ | | | +---+---+ + +-------+ +-------+---+ + | lidocaine buffered 1.3% | Given | 07/13/20 | 6 mLs | | Other | | injection 6 mL 6 mL, | | 18 1:15 | | | (Comment | | Intradermal, ONCE, 07/13/18 at | | PM PDT | | | ) | | 1330, For 1 dose | | | | | | + +-------+ +-------+---+ + +---+---+ | | | +---+---+ documented in this encounter"
--- OUTSIDE RECORDS SUMMARY | ~2019-10-13 | XMS | Encounter Summary ---
Demographics + + + | Address | [address] | | | [place] [address] | + + + | Home Phone | | + + + | Preferred Language | Unknown | + + + | Marital Status | | + + + | Christianity Affiliation | 1041 | + + + | Race | Unknown | + + + | Ethnic Group | Unknown | + + + Author + + + | Author | [facility] | | | and [place] | + + + | Organization | [facility] | | [...] Team Providers + +------+ + | Care Ordained Minister Name | Role | Phone | + +------+ + PCP | Unavailable | + +------+ + Encounter Details +--------+ + + + + | Date | Type | Department | Care Team | Description | +--------+ + + + + | 06/06/ | Hospital | [facility] | Tj Luevano MD | | | 2006 - | Encounter | MED [facility] ONC | [address] | | | | | [address] [place] | [place] | | | 06/10/ | | [place] [address] | [address] | | | 2005 | | [phone] | [phone] | | | | | | | [...] 2019 | Visit | | [address] | | | | | | [address] [place] | | | | | | [address] | | | | | | | [...] documented as of this encounter Visit Diagnoses Not on filedocumented in this encounter"
--- OUTSIDE RECORDS SUMMARY | ~2019-10-13 | XMS | Encounter Summary ---
Demographics + + + | Address | [address] | | | [place] [address] | + + + | Home Phone | | + + + | Preferred Language | Unknown | + + + | Marital Status | | + + + | Bahai Affiliation | 1041 | + + + | Race | Unknown | + + + | Ethnic Group | Unknown | + + + Author + + + | Author | [facility] | | | and [place] | + + + | Organization | [facility] | | | [...] Team Providers + +------+ + | Care Spray Gun Operator Name | Role | Phone | + +------+ + | Kushal Costa MD | PCP | | + +------+ + Encounter Details +--------+ + + + + | Date | Type | Department | Care Team | Description | +--------+ + + + + | 03/16/ | Orders Only | [facility] | Danny Gandara MD | | | 2018 | | NEPHROLOGY [place] | [address] [place] | | | | | [address] [place] | [address] [place], [place] | | | | | [address] [place], [place] | [address] | | | | | [address] | | | | | | [phone] | | | +--------+ + + + [...] 2020 | Visit | | [address] [facility] | | | | | | [address] [place] | | | | | | [address] | | | | | | | [...] | + +--------+ + + + | BASIC METABOLIC | Routin | 03/16/2019 | | Results for this | | PANEL | e | 12:53 PM | | procedure are in the | | | | PDT | | results section. | + +--------+ + + + documented in this encounter Results Basic Metabolic Panel (03/16/2019 12:53 PM PDT) + + + + + + | Component | Value | Ref Range | Performed | Pathologist | | | | | At | Signature | + + + + + + | Glucose, | 84 | 70 - 100 mg/dL | EXTERNAL | | | Fasting | | | LAB | | + + + + + + | BUN | 74 (A) | 6 - 23 mg/dL | EXTERNAL | | | | | | LAB | | + + + + + + | Creatinine | 2.34 (A) | 0.70 - 1.18 | EXTERNAL | | | | | mg/dL | LAB | | + + + + + + | BUN/Creatin | 31.6 (A) | 6.0 - 28.6 | EXTERNAL | | | ine Ratio | | | LAB | | + + + + + + | Calcium | 9.2 | 8.5 - 10.3 | EXTERNAL | | | | | mg/dL | LAB | | + + + + + + | Na | 140 | 132 - 143 | EXTERNAL | | | | | mmol/L | LAB | | + + + + + + | K | 3.4 (A) | 3.6 - 5.1 | EXTERNAL | | | | | mmol/L | LAB | | + + + + + + | Cl | 96 | 95 - 112 mmol/L | EXTERNAL | | | | | | LAB | | + + + + + + | CO2 | 31 | 19 - 31 mmol/L | EXTERNAL | | | | | | LAB | | + + + + + + | Anion Gap | 16.1 | 7 - 21 mmol/L | EXTERNAL | | | | | | LAB | | + + + + + + | Estimated | 27 (A) | 60 - 140 mg/dL | EXTERNAL | | | GFR [...]
--- OUTSIDE RECORDS SUMMARY | ~2019-10-13 | XMS | Encounter Summary ---
Demographics + + + | Address | [address] | | | [place] [address] | + + + | Home Phone | | + + + | Preferred Language | Unknown | + + + | Marital Status | | + + + | Rastafarian Affiliation | 1041 | + + + | Race | Unknown | + + + | Ethnic Group | Unknown | + + + Author + + + | Author | [facility] | | | and [place] | + + + | Organization | [facility] | | | [...] Team Providers + +------+ + | Care Senior Project Architect Name | Role | Phone | + +------+ + | Kushal Costa MD | PCP | | + +------+ + Encounter Details +--------+ + + + + | Date | Type | Department | Care Team | Description | +--------+ + + + + | 02/11/ | Orders Only | [facility] | Danny Gandara MD | | | 2018 | | NEPHROLOGY [place] | [address] [place] | | | | | [address] [place] | [address] [place], [place] | | | | | [address] [place], [place] | [address] | | | | | [address] | | | | | | [phone] | | | +--------+ + + + [...] 2020 | Visit | | [address] [facility] | | | | | | [address] [place] | | | | | | [address] | | | | | | | [...] | EXTERNAL LAB: CBC | Routin | 02/11/2019 | | Results for this | | | e | 12:20 PM | | procedure are in the | | | | PDT | | results section. | + +--------+ + + + | MAGNESIUM | Routin | 02/11/2019 | | Results for this | | | e | 12:20 PM | | procedure are in the | | | | PDT | | results section. | + +--------+ + + + | RENAL FUNCTION PANEL | Routin | 02/11/2019 | | Results for this | | | e | 12:20 PM | | procedure are in the | | | | PDT | | results section. | + +--------+ + + + documented in this encounter Results External Lab: CBC (02/11/2019 12:20 PM PDT) + + + + + [...] + + + | RED CELL | 3.70 (A) | 4.3 - 5.7 10 | EXTERNAL | | | COUNT | | | LAB | | + + + + + + | Hgb | 11.0 (A) | 13.5 - 18.0 | EXTERNAL | | | | | g/dL | LAB | | + + + + + + | Hematocrit, | 34.0 (A) | 41 - 50 % | EXTERNAL | | | POC | | | LAB | | + + + + + + | MCV | 91.9 | 81 - 99 fL | EXTERNAL | | | | | | LAB | | + + + + + + | MCH | 30 | 27 - 33 pg | EXTERNAL | | | | | | LAB | | + + + + + + | MCHC | 32 | 30 - 36 g/dL | EXTERNAL | | | | | | LAB | | + + + + + + | Platelet | 190 | 140 - 440 K/ L | EXTERNAL | | | Count | | | LAB | | | Plasma | | | | | + + + + + + | RDW-CV | 18.0 (A) | 10.5 - 15.0 % | [...] + + + | % Segmented | 81.4 (A) | 39 - 80 % | EXTERNAL | | | | | | LAB | | | Neutrophils | | | | | + + + + + + | % | 5.1 (A) | 24 - 44 % | EXTERNAL | | | Lymphocytes | | | LAB | | + + + + + + | % Monocytes | 5.1 | 0 - 12 % | EXTERNAL | | | | | | LAB | | + + + + + + | % | 7.3 (A) | 0 - 6 % | EXTERNAL | | | Eosinophils | | | LAB | | + + + + + + | % Basophils | 1.1 | 0 - 2 % | EXTERNAL | | | | [...] | | + +---------+ + + Magnesium (02/11/2019 12:20 PM PDT) + +-------+ + + + | Component | Value | Ref Range | Performed | Pathologist | | | | | At | Signature | + +-------+ + + + | Magnesium | 1.8 | 1.7 - 2.5 mg/dL | EXTERNAL [...] | | | + +---------+ + + Renal Function Panel (02/11/2019 12:20 PM PDT) + + + + + + | Component | Value | Ref Range | Performed | Pathologist | | | | | At | Signature | + + + + + + | Glucose, | 81 | 70 - 100 mg/dL | EXTERNAL | | | Fasting | | | LAB | | + + + + + + | BUN | 51 (A) | 6 - 23 mg/dL | EXTERNAL | | | | | | LAB | | + + + + + + | Creatinine | 1.95 (A) | 0.70 - 1.18 | EXTERNAL | | | | | mg/dL | LAB | | + + + + + + | PHOSPHORUS | 3.3 | 2.5 - 5.0 mg/dL | EXTERNAL | | | | | | LAB | | + + + + + + | Albumin | 3.7 | 3.5 - 5.0 | EXTERNAL | | | | | | LAB | | + + + + + + | Na | 141 | 132 - 143 | EXTERNAL | | | | | mmol/L | LAB | | + + + + + + | K | 3.7 | 3.6 - 5.1 | EXTERNAL | | | | | mmol/L | LAB | | + + + + + + | Cl | 99 | 95 - 112 mmol/L | EXTERNAL | | | | | | LAB | | + + + + + + | CO2 | 30 (A) | 95 - 112 mmol/L | EXTERNAL | | | | | | LAB | | + + + + + + | Anion Gap | 15.7 | 7 - 21 mmol/L | EXTERNAL | | | | | | LAB | | + + + + + + | eGFR if not | | | EXTERNAL | | | | | | LAB | | | [place] | | | | | + + + + + + | Phosphorus, | | | EXTERNAL | | | Inorganic | | | LAB | | + + + + + + | BUN/Creatin | 26.2 | 6.0 - 28.6 | EXTERNAL | | | ine Ratio | | | LAB | | + + + + + + | Calcium | 8.7 | 8.5 - 10.3 | EXTERNAL | | | | | mg/dL | LAB | | + + + + + + | Estimated | 33 (A) | 60 - 140 mg/dL | [...]
--- OUTSIDE RECORDS SUMMARY | ~2019-10-13 | XMS | Encounter Summary ---
Demographics + + + | Address | [address] | | | [place] [address] | + + + | Home Phone | | + + + | Preferred Language | Unknown | + + + | Marital Status | | + + + | Latter-Day Affiliation | 1041 | + + + | Race | Unknown | + + + | Ethnic Group | Unknown | + + + Author + + + | Author | [facility] | | | and [place] | + + + | Organization | [facility] | | [...] Team Providers + +------+ + | Care Finished Cloth Examiner Name | Role | Phone | + +------+ + | Kushal Costa MD | PCP | | + +------+ + Encounter Details +--------+ + + + + | Date | Type | Department | Care Team | Description | +--------+ + + + + | 07/26/ | Orders Only | [facility] | [place] Gandara MD | CKD (chronic kidney | | 2019 | | NEPHROLOGY [place] | [address] [place] | disease), stage IV | | | | [address] [place] | [address] [place], [place] | (HCC) (Primary Dx) | | | | [address] [place], [place] | [address] | | | | | [address] | | | | | | [phone] | | | +--------+ + + + [...] 2020 | [facility] | | [address] [facility] | | | | | | [address] [place], [place] | | | | | | [address] | | | | | | | [...]
--- OUTSIDE RECORDS SUMMARY | ~2019-10-13 | XMS | Encounter Summary ---
Demographics + + + | Address | [address] | | | [place] [address] | + + + | Home Phone | | + + + | Preferred Language | Unknown | + + + | Marital Status | | + + + | Latter-Day Affiliation | 1041 | + + + | Race | Unknown | + + + | Ethnic Group | Unknown | + + + Author + + + | Author | [facility] | | | and [place] | + + + | Organization | [facility] | | | [...] Team Providers + +------+ + | Care Tire Inspector Name | Role | Phone | + +------+ + | Kushal Costa MD | PCP | | + +------+ + Encounter Details +--------+ + + + + | Date | Type | Department | Care Team | Description | +--------+ + + + + | 05/20/ | Imaging | [facility] | Provider, | | | 2018 | Exam | MED CTR EXTERNAL | MD [address] | | | | | IMAGING | [place] | | | | | [phone] | [place] [address] | | +--------+ + + + + [...] 2019 | Visit | | [address] [facility] [address] [address] [facility] | | | | | | [address] [place], [place] | | | | | | [address] | | | | | | | [...] | + +--------+ + + + | XR LUMBAR SPINE | Routin | 05/08/2018 | | Results for this | | COMPLETE INCLUDING | e | 12:40 PM | | procedure are in the | | BENDING 6 + VW | | PDT | | results section. | + +--------+ + + + documented in this encounter Results XR Lumbar Spine Complete With Bending 6+ (05/08/2018 12:40 PM PDT) + + | Specimen | + + | | + + + + + | Narrative | Performed At | + + + | External films for comparison only | [facility] | | | | | No results will be in the chart. | | + + + + +---------+ + + | Performing | Address | City/State/Zipcode | Phone Number | | Organization | | | | + +---------+ + + | [facility] | | | | + +---------+ + + documented in this encounter Visit Diagnoses Not on filedocumented in this encounter"
--- OUTSIDE RECORDS SUMMARY | ~2019-10-13 | XMS | Encounter Summary ---
Demographics + + + | Address | [address] | | | [place] [address] | + + + | Home Phone | | + + + | Preferred Language | Unknown | + + + | Marital Status | | + + + | Nondenominational Affiliation | 1041 | + + + | Race | Unknown | + + + | Ethnic Group | Unknown | + + + Author + + + | Author | [facility] | | | and [place] | + + + | Organization | [facility] | | [...] Team Providers + +------+ + | Care Fork Truck Driver Name | Role | Phone | + +------+ + | Kushal Costa MD | PCP | | + +------+ + Encounter Details +--------+ + + + + | Date | Type | Department | Care Team | Description | +--------+ + + + + | 01/11/ | Orders Only | [facility] | Conversion | | | 2019 | | NEPHROLOGY [place] | Transaction, | | | | | [address] [place] | Provider Unknown | | | | | [address] [facility] [place] | | | | | | [address] | (Fax) | | | | | [phone] | | | +--------+ + + + [...] 2019 | Visit | | [address] [facility] | | | | | | [address] [place] | | | | | | [address] | | | | | | | [...] | + +--------+ + + + | PSA, SCREEN | Routin | 01/11/2019 | | Results for this | | | e | 4:49 PM | | procedure are in the | | | | PDT | | results section. | + +--------+ + + + | B TYPE NATRIURETIC | Routin | 01/11/2019 | | Results for this | | PEPTIDE | e | 4:49 PM | | procedure are in the | | | | PDT | | results section. | + +--------+ + + + documented in this encounter Results PSA, Screen (01/11/2019 4:49 PM PDT) + +-------+ + + + | Component | Value | Ref Range | Performed | Pathologist | | | | | At | Signature | + +-------+ + + + | PSA, Free | 0.259 | 0.0 - 4.0 ng/mL | EXTERNAL | | | Pct | | | LAB | | + +-------+ + + + + + | Specimen | + + | Blood specimen | | (specimen) | + + + +---------+ + + | Performing | Address | City/State/Zipcode | Phone Number | | Organization | | | | + +---------+ + + | EXTERNAL LAB | | | | + +---------+ + + B Type Natriuretic Peptide (01/11/2019 4:49 PM PDT) + +-------+ + + + | Component | Value | Ref Range | Performed | Pathologist | | | | | At | Signature | + +-------+ + + + | BNP | 36 | 0 - 100 pg/mL | EXTERNAL | | | | | [...]
--- OUTSIDE RECORDS SUMMARY | ~2019-10-13 | XMS | Encounter Summary ---
Demographics + + + | Address | [address] | | | [place] [address] | + + + | Home Phone | | + + + | Preferred Language | Unknown | + + + | Marital Status | | + + + | Holiness Affiliation | 1041 | + + + [...] Team Providers + +------+ + | Care Drawing In Machine Tender Name | Role | Phone | + [...] [place] | | | | | [phone] | [place] [address] | | +--------+ + + + + [...] 2019 | Visit | | [address] [facility] [address] | | | | | | [address] [place], [place] | | | | | | [address] | | | | | | | [...] | + +--------+ + + + | CT LUMBAR SPINE WO | Routin | 11/30/2008 | | Results for this | | CONTRAST | e | 10:15 AM | | procedure are in the | | | | PST | | results section. | + +--------+ + + + documented in this encounter Results CT Lumbar Spine wo Contrast (11/30/2008 10:15 AM PST) + + | Specimen | + + [...]
--- OUTSIDE RECORDS SUMMARY | ~2019-10-13 | XMS | Clinical Summary ---
Demographics + + + | Address | [address] | | | [place] [address] | + + + | Home Phone | | + + + | Preferred Language | Unknown | + + + | Marital Status | | + + + | Spiritism Affiliation | 1041 | + + + | Race | Unknown | + + + | Ethnic Group | Unknown | + + + Author + + + | Author | [facility] (Historical as of | | | 06-05-19) | + + + | Organization | [facility] (Historical as of | | | 06-05-19) | + + + | Address | [...] Team Providers + +------+ + | Care Vice President Digital Strategist Name | Role | Phone | + [...] + +---------+---------+------+------+-------+ | ascorbic acid | Take 500 mg by mouth | | | | | Activ | | (VITAMIN C) 500 MG | daily. | | | | | [...] | | (ELOCON) 0.1 % cream | daily as needed. | | | | | e | + + +---------+---------+------+------+-------+ | atorvastatin | Take 20 mg by mouth | | | | | Activ | | (LIPITOR) 20 MG | daily. | | | | | [...] | | | + + +---------+---------+------+------+-------+ | metolazone 5 MG | Take 1 tablet by | 60 | 11 | 05/1 | 05/1 | Activ | | tablet | mouth daily. | tablet | | 5/20 | 4/20 | e | | | | | | 19 | 20 | | + + +---------+---------+------+------+-------+ | torsemide | Take 40 mg by mouth | | | | | Activ | | (DEMADEX) 20 MG | daily. | | | | | e | | tablet | | | | | | | + + +---------+---------+------+------+-------+ | cephALEXin | Take 1 capsule by | 21 | 0 | 06/0 | | Activ | | (KEFLEX) 500 MG | mouth 3 (three) | capsule | | 5/20 | | e | | capsule | times daily. | | | 19 | | | + + +---------+---------+------+------+-------+ | metoprolol | Take 1 tablet by | 120 | 3 | 06/0 | 06/0 | Activ | | (LOPRESSOR) 50 MG | mouth 2 (two) times | tablet | | 5/20 | 4/20 | e | | tablet | daily. | | | 19 | 20 | | + + +---------+---------+------+------+-------+ | potassium chloride | Take 10 mEq by mouth | | | | | Activ | | (K-DUR) 10 MEQ | 2 (two) times daily | | | | | e | | tablet | with meals. | | | | | | + + +---------+---------+------+------+-------+ | allopurinol | Take 2 tablets by | 180 | 3 | 07/2 | 07/2 | Activ | | (ZYLOPRIM) 100 MG | mouth daily. | tablet | | 3/20 | 2/20 | e | | tabletIndications: | | | | 19 | 20 | | | Hyperuricemia, | | | | | | | | Essential | | | | | | | | hypertension, | | | | | | | | benign, CKD (chronic | | | | | | | | kidney disease) | | | | | | | | stage 3, GFR 30-59 | | | | | | | | ml/min (HCC) | | | | | | | + + +---------+---------+------+------+-------+ Active Problems + + + | Problem | Noted Date | + + + | Wound, open, leg chronic right lower, acute left lower possible | 03/18/2019 | | traumatic---gluteal area as well (pressure versus traumatic | | | versus combination) | | + + + | Anemia of chronic renal failure, stage 3 (moderate) ([facility]) | 02/15/2019 | + + + | Pulmonary hypertension ([facility]) | 12/27/2018 | + + + | Right heart failure ([facility]) | 12/27/2018 | + + + | [...] kidney disease) stage 3, GFR 30-59 ml/min ([facility]) | 10/27/2017 | + + + | [...] Date | + + + + | 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 | 03/01/20 | | | | 19 | 9 | + + + + | IZZY (acute kidney injury) ([facility]) | 01/07/20 | | | | 19 | 9 | + + + + | SOB (shortness of breath) | 12/28/19 | | | | 19 | 9 | + + + + | Volume overload | 09/16/20 | | | | 18 | 9 | + + + + Immunizations + + + + | Name [...] + + + | Blood Pressure | 136/82 | 04/19/2019 10:50 AM PDT | + + + + | Pulse | 70 | 04/19/2019 10:50 AM PDT | + + + + | Temperature | 37.2 C (98.9 F) | 03/20/2019 3:02 AM PDT | + + + + | Respiratory Rate | 20 | 03/20/2019 3:02 AM PDT | + + + + | Oxygen Saturation | 95% | 04/19/2019 10:50 AM PDT | + + + + | Inhaled Oxygen | - | - | | Concentration | | | + + + + | Weight | 117.9 kg (259 lb | 04/19/2019 10:50 AM PDT | | | 14.4 oz) | | + + + + | Height | 167.6 cm (5' 6") | 04/19/2019 10:50 AM PDT | + + + + | Body Mass Index | 41.95 | 04/19/2019 10:50 AM PDT | + + + + Plan of Treatment + + [...] + + + | Vaccine: Influenza | | 12/27/2018 | | | (#1) | 9 | | | + + + + + Implants + +--------+------+ +--------+--------+--------+ | Implanted | Type | Area | Manufacture | Device | Expira | Model | | | | | r | | tion | / | | | | | | Identi | Date | Serial | | | | | | fier | | / Lot | + +--------+------+ +--------+--------+--------+ | Accolade Mri | Pacema | | [place] | | 12/11/ | | | Sr-03/19/2019Implanted: Qty: 1 | ker | | SCIENTIFIC | | 2021 | [id number] | | on 03/19/2019 by Caitlyn, | | | KATARZYNA - [employer] | | | 1 | | MD Sparkle | | | | | | [id number] | | | | | | | | 6 | + +--------+------+ +--------+--------+--------+ Results Not on filefrom Last 3 Months Insurance + +--------+ +------+-------+ + | Payer | Benefi | Subscriber | Type | Phone | Address | | | t Plan | ID | | | | | | / | | | | | | | Group | | | | | + +--------+ +------+-------+ + | MEDICARE | MEDICA | [id number] | | | [address] | | | RE | | | | [place] [id number] | | | IP-OP | | | | | + +--------+ +------+-------+ + + +--------+ +--------+ + + | Guarantor Name | Accoun | Relation to | Date | Phone | Billing Address | | | t Type | Patient | of | | | | | | | | | | + +--------+ +--------+ + + | FROYLAN JOSHI | Person | Self [birth year] Home: | [address] [place] [address] ST | | | al/Fam | | 1941 | [phone] [place] | | | lissy | | | [phone] | [phone] | + +--------+ +--------+ + +
--- OUTSIDE RECORDS SUMMARY | ~2019-10-13 | XMS | Encounter Summary ---
Demographics + + + | Address | [address] | | | [place] [address] | + + + | Home Phone | | + + + | Preferred Language | Unknown | + + + | Marital Status | | + + + | Congregation Affiliation | 1041 | + + + | Race | Unknown | + + + | Ethnic Group | Unknown | + + + Author + + + | Author | [facility] | | | and [place] | + + + | Organization | [facility] | | [...] Team Providers + +------+ + | Care Speech Language Pathology Assistant Name | Role | Phone | + +------+ + | Amee Urrutia MD | PCP | | + +------+ + Encounter Details +--------+ + + + + | Date | Type | Department | Care Team | Description | +--------+ + + + + | 12/27/ | Hospital | [facility] | Enriqueta Reese, | Hypervolemia, | | 2019 - | Encounter | [facility] | MD [address] | unspecified | | | | CARE FLO[address] | [place] [address] | hypervolemia type | | 01/08/ | | [address] | [phone] | | | 2018 | | [place], [place] | | | | | | [address] | | | | | | [phone] | | | +--------+ + + + [...] | Blood Pressure | 155/83 | 01/08/2019 8:16 AM | | | | | PDT | | + + + + + | Pulse | 80 | 01/08/2019 8:16 AM | | | | | PDT | | + + + + + | Temperature | 36.3 C (97.4 F) | 01/08/2019 8:16 AM | | | | | PDT | | + + + + + | Respiratory Rate | 18 | 01/08/2019 8:16 AM | | | | | PDT | | + + + + + | Oxygen Saturation | - | - | | + + + + + | Inhaled Oxygen | - | - | | | Concentration | | | | + + + + + | Weight | 109.3 kg (241 lb) | 01/08/2019 8:16 AM | | | | | PDT | | + + + + + | Height | 167.6 cm (5' 6") | 01/08/2019 8:16 AM | | | | | PDT | | + + + + + | Body Mass Index | 38.9 | 01/08/2019 8:16 AM | | | | | PDT | | + + + + + documented in this encounter Discharge Summaries Nellie Clinton MD - 01/08/2019 9:30 AM PDT Discharge Summaries by Nellie Clinton MD at 01/08/19929 Author: Nellie Clinton MD Service: Hospitalist Author Type: Physician Filed: 01/09/19610 Date of Service: 01/08/19929 Status: Signed Public Welfare Director: Nellie Clinton MD (Physician) Related Notes: Original Note by Nellie Clinton MD (Physician) filed at 01/08/[address] [facility] Service: Hospitalist Physician Discharge Summary Patient ID: Michael Joshi 1940 78 y.o. Admit date: 12/27/2018 Discharge date: 01/08/2019 Admitting Physician: Enriqueta Reese MD Discharge Physician: Nellie Clinton MD Consultants: Treatment Team: Admitting Provider: Enriqueta Reese MD Primary Discharge Diagnoses: IZZY (acute kidney injury) (HCC) Secondary Discharge Diagnoses: CKD (chronic kidney disease) stage 3, GFR 30-59 ml/min Morbid obesity Anemia of chronic disease Essential hypertension, benign Bilateral lower extremity edema Chronic atrial fibrillation (HCC) Cardiac pacemaker in situ NEETU (obstructive sleep apnea) Pulmonary hypertension (HCC) Right heart failure (HCC) Chronic diastolic heart failure (HCC) Resolved Problems: SOB (shortness of breath) HPI and Hospital Course: A 78-year-old male with history of hypertension, hyperlipidemia, obstructive sleep apnea, n ot using CPAP, chronic kidney disease stage 3 with chronic anemia, chronic diastolic CHF, ch ronic AFib with status post Watchman device. Cannot tolerate anticoagulation due to GI blee d. Admitted with acute onset of dyspnea. HOSPITAL COURSE: The patient admitted with acute shortness of breath. The patient was diu resed and then Nephrology was also consulted. He had acute on chronic kidney disease and in itially his creatinine improved and then subsequently his creatinine declined. His diuresis was discontinued. The patient also had episode of hypotension on minimal dose of antihyper tensives, which were all discontinued. He was completely asymptomatic with the hypotension. After discussing with Nephrology, antihypertensives and diuretics were all discontinued. I have discussed with Dr. Gandara, the patient's primary repair miller. He will check his bloo d pressure twice daily and check his weight daily and instructed to restart torsemide and po tassium as his weight increases by 3-5 pounds in 3 days. The patient remains in negative fl uid balance. He has chronic atrial fibrillation, but he is not a candidate for any anticoagulation due t o GI bleed. He is status post Watchman's procedure. He has acute on chronic kidney disease stage 3. Creatinine is trending down. He has anemia of chronic disease and hemoglobin had remained stable. His blood pressure has been controlled off medications. The patient has morbid obesity with obstructive sleep apnea, not compliant with CPAP. He had echocardiogram done on 12/27/2018, which showed EF of 60-65 percent with severe biatrial enlargement. The patient has bilateral lower extremity ulcers. LULU was negative. The patient will follow u p outpatient with manager market development. Wound care instructions have been given. Plan discussed in d etail with the patient and his . The patient advised to call his PCP if systolic blood pressure is over 170. Also discussed with Dr. Gandara prior to discharge. Discharged Condition: Stable for discharge as stated above. Significant Diagnostic Studies: No results found. Discharge Vitals: Vitals: 01/07/19 2027 01/08/19 0008 01/08/19 0407 01/08/19 0814 BP: 120/83 114/62 110/69 155/83 BP Location: Left upper arm Right upper arm Right upper arm Right upper arm Pulse: 85 79 79 80 Resp: Temp: 97.6 F (36.4 C) 98 F (36.7 C) 97.8 F (36.6 C) 97.4 F (36.3 C) TempSrc: Oral Oral Oral Oral SpO2: 94% 94% 93% 94% Weight: 109.3 kg (241 lb) Height: Discharge Exam: General: Well nourished. Psych: Alert and oriented x 3. Calm, cooperative. Cardiovascular: Regular rate and rhythm, no murmurs, no thrills. Normal PMI. Respiratory: Clear to auscultation, no wheezing or crackles, breathing non labored.Pacemake r present left chest wall Gastrointestinal: Soft, non-tender, non-distended, positive bowel sounds. No HSM. Musculoskeletal: No edema in bilateral lower extremities. No joint swelling. Skin: Bilateral lower extremity compression stockings present. Neck: No JVD, Trachea midline. Neurological: Non focal. Motor grossly intact. LABS: Recent Labs Lab 01/05/19 0612 01/04/19 0549 01/03/19 0544 WBC 8.75 8.75 7.89 RBC 4.20 4.03* 4.00* HGB 12.3* 12.1* 12.0* HCT 38.0* 36.8* 36.7* MCV 90.6 91.4 91.6 MCH 29.4 29.9 30.0 MCHC 32.4 32.8 32.8 RDW 53.4* 52.5 53.4* PLT 201 190 195 MPV 9.6 9.2 9.0 DIFFTYPE AUTOMATED AUTOMATED AUTOMATED Recent Labs Lab 01/08/19 0614 01/07/19 0438 01/06/19 0536 NA 140 139 139 K 3.8 3.3* 3.4* CL 99 96* 95* CO2 32 33* 33* BUN 94* 96* 89* CREATININE 2.6* 2.8* 2.9* GLUF 105* 96 103* No results for input(s): CKTOTAL, TROPONINI, TROPONINT, CKMBINDEX in the last 168 hours. Recent Labs Lab 01/08/19 0614 01/07/19 0438 01/06/19 0536 PHOS 3.6 3.3 3.5 Recent Labs Lab 01/05/19 0612 01/04/19 0549 01/03/19 0544 MG 2.1 2.1 2.3 Invalid input(s): ABG Disposition: Home Follow up: Amee Urrutia MD [address] [place] [address] Schedule an appointment as soon as possible for a visit in 3 days resume care with all providers you were seeing prior to admission Danny Gandara MD [address] [id number] Schedule an appointment as soon as possible for a visit in 1 month Medication List CONTINUE taking these medications allopurinol 100 MG tablet QTY: 60 tablet Refills: 11 Commonly known as: ZYLOPRIM Take 2 tablets by mouth daily. ascorbic acid 500 MG tablet Refills: 0 Commonly known as: VITAMIN C aspirin 81 MG chewable tablet Refills: 0 atorvastatin 20 MG tablet Refills: 0 Commonly known as: LIPITOR cholecalciferol 1000 units tablet Refills: 0 Commonly known as: VITAMIN D-3 HYDROcodone-acetaminophen 5-325 MG per tablet Refills: 0 Commonly known as: NORCO mometasone 0.1 % cream Refills: 0 Commonly known as: ELOCON Notes to patient: Follow home regime PARoxetine 20 MG tablet Refills: 0 Commonly known as: PAXIL pramipexole 0.125 MG tablet Refills: 0 Commonly known as: MIRAPEX You might also be taking other medications not listed above. If you have questions about an y of your other medications, talk to the person who prescribed them or your Primary Care Pro vider. STOP taking these medications amLODIPine 5 MG tablet Commonly known as: NORVASC losartan 100 MG tablet Commonly known as: COZAAR metolazone 10 MG tablet Commonly known as: ZAROXOLYN metoprolol 50 MG tablet Commonly known as: LOPRESSOR potassium chloride 10 MEQ tablet Commonly known as: K-DUR simvastatin 20 MG tablet Commonly known as: ZOCOR terazosin 1 MG capsule Commonly known as: HYTRIN torsemide 20 MG tablet Commonly known as: DEMADEX Nellie Clinton MD 01/08/2019 9:30 AM Code Status: Full Code Discharge took 45 minutes, to include final examination, discussion of admission, and prep aration of prescriptions, instructions for ongoing care, follow up and dictation of summary. This entry has been created using [employer] Speech Recognition software and [employer]. The entry has been reviewed and there may still exist sound alike word errors. documented in th is encounter Medications at Time of Discharge + + + +---------+--------+ + | Medication | Sig | Dispensed | Refills | Start | End Date | | | | | | Date | | + + + +---------+--------+ + | aspirin 81 mg EC | Take 81 mg by mouth | | 0 | | | | tablet | Daily. | | | | | + + + +---------+--------+ + | cholecalciferol | Take 1,000 Units by | | 0 | | | | (VITAMIN D-3) 1,000 | mouth Daily. | | | | | | units tablet | | | | | | + + + +---------+--------+ + | metoprolol | Take 50 mg by mouth | | 0 | | | | tartrate (LOPRESSOR) | 2 times daily. | | | | | | 50 mg tablet | | | | | | + + + +---------+--------+ + | amLODIPine | Take 5 mg by mouth | | 0 | | | | (NORVASC) 5 mg | Daily. | | | | 9 | | tablet | | | | | | + + + +---------+--------+ + | Bioflavonoid | Take by mouth. | | 0 | | | | Products (VITAMIN C) | | | | | 9 | | CHEW | | | | | | + + + +---------+--------+ + | | Take 1 tablet by | | 0 | | | | HYDROcodone-acetamin | mouth every 6 hours | | | | 9 | | ophen (NORCO) | as needed. | | | | | | 7.5-325 mg per | | | | | | | tablet | | | | | | + + + +---------+--------+ + | metOLazone | 1 tablet Orally one | | 0 | | | | (ZAROXOLYN) 5 MG | hour before | | | | 9 | | tablet | torsemide | | | | | + + + +---------+--------+ + | mometasone | Apply 1 Application | | 0 | | | | (ELOCON) 0.1 % cream | topically Daily. | | | | 9 | + + + +---------+--------+ + | PARoxetine (PAXIL) | Take 20 mg by mouth | | 0 | | | | 20 mg tablet | Daily. | | | | 9 | + + + +---------+--------+ + | simvastatin | Take 20 mg by mouth | | 0 | | | | (ZOCOR) 20 mg tablet | Daily. | | | | 9 | + + + +---------+--------+ + documented as of this encounter Progress Notes Conversion Transaction, Provider Unknown - 01/08/2019 10:52 AM PDTFormatting of this note m ight be different from the original. Case Management by Lyle Vences RN at 01/08/19 1052 Author: Lyle Vences RN Service: (none) Author Type: Registered Nurse Filed: 01/08/19 1054 Date of Service: 01/08/191051 Status: Signed Public Welfare Director: Lyle Vences RN (Registered Nurse) 10:52 AM Disposition: Home with [facility] Transportation:spouse Face to face order added to AVS and has been faxed to [facility], confirmed with Kristine that she r eceived it. All DC paperwork completed Patient and family in agreement with discharge plan Medicare important message (Given or N/A): Arlin Vences onver sarah Transaction, Provider Unknown - 01/08/2019 10:23 AM PDT Nurse Progress Note by Francy Camacho RN at 01/08/19 1023 Author: Francy Camacho RN Service: (none) Author Type: Registered Nurse Filed: 01/08/19 1025 Date of Service: 01/08/19 1023 Status: Signed Public Welfare Director: Francy Camacho RN (Registered Nurse) IV removed, discharge paperwork reviewed, and patient to discharge with family to home. Pat ient and family have no questions. Francy Camacho RN onver sarah Transaction, Provider Unknown - 01/08/2019 4:12 AM PDT Nurse Progress Note by Anna Tran RN at 01/08/19411 Author: Anna Tran RN Service: (none) Author Type: Registered Nurse Filed: 01/08/193 Date of Service: 01/08/19411 Status: Signed Public Welfare Director: Anna Tran RN (Registered Nurse) No acute changes from previous shift. End of shift audit and 24H chart check completed. Anna Tran RN ellie Sauceda MD - 01/07/2019 1:24 PM PDTFormatting of this note might be different from t he original. Progress Notes by Nellie Clinton MD at 01/07/19 1324 Author: Nellie Clinton MD Service: Hospitalist Author Type: Physician Filed: 01/07/19 1326 Date of Service: 01/07/19 1324 Status: Signed Public Welfare Director: Nellie Clinton MD (Physician) [facility] Service: Hospitalist Progress Note Hospital Day: LOS: 10 days SUBJECTIVE Patient Summary: 78-year-old male with history of hypertension, hyperlipidemia, morbi d obesity, obstructive sleep apnea,noncompliant on home CPAP, severe pulmonary hypertension, chronic kidney disease stage IIIB, chronic atrial fibrillation not on anticoagulation statu s post watchman's device admitted with acute respiratory distress. Events Overnight: Patient denies any complaints. He states that he is feeling well. H e was hypotensive yesterday requiring fluid bolus. Scheduled Medications allopurinol 200 mg Oral Daily ascorbic acid 1,000 mg Oral Daily aspirin 162 mg Oral Daily with breakfast atorvastatin 40 mg Oral Nightly cholecalciferol 1,000 Units Oral Daily ferrous sulfate (65 FE) 65 mg of iron Oral TID WC heparin (porcine) 5000 unit/0.5mL 5,000 Units Subcutaneous 2 times per day PARoxetine 20 mg Oral QAM sodium chloride (PF) 10 mL Intravenous Q8H Continuous Infusions PRN Medications acetaminophen OR acetaminophen, ammonium lactate, hydrALAZINE, HYDROcodone-acetaminophe n, nitroGLYCERIN, ondansetron OR ondansetron, polyethylene glycol, pramipexole OBJECTIVE Vital Signs: BP 105/59 (BP Location: Left upper arm) | Pulse 85 | Temp 97.4 F (36.3 C) (Oral) | R boni 18 | Ht 1.676 m (5' 6") | Wt 122.4 kg (269 lb 14.4 oz) | SpO2 96% | BMI 43.56 kg/m Patient Vitals for the past 24 hrs: BP Temp Temp src Pulse Resp SpO2 Weight 01/07/19 1208 105/59 97.4 F (36.3 C) Oral 85 18 96 % - 01/07/19 0805 137/81 97.7 F (36.5 C) Oral 81 18 93 % - 01/07/19 0424 112/66 97.8 F (36.6 C) Oral 87 16 91 % 122.4 kg (269 lb 14.4 oz) 01/07/19 0024 119/58 97.8 F (36.6 C) Oral 70 16 93 % - 01/06/19 2059 126/64 98.2 F (36.8 C) Oral 88 18 91 % - 01/06/19 1630 99/55 - - - - - - 01/06/19 1615 (!) 89/57 - - - - - - 01/06/19 1551 (!) 71/50 - - - - - - 01/06/19 1546 (!) 74/50 97.8 F (36.6 C) Oral 81 16 92 % - Intake/Output Summary (Last 24 hours) at 01/07/19 1324 Last data filed at 01/07/19 1208 Gross per 24 hour Intake 1700 ml Output 1595 ml Net 105 ml Physical Exam: Constitutional: Alert and oriented to person, place, and time. Appears well-developed and w ell-nourished. Patient is sitting up in a chair HEENT: Neck supple, no JVD, non icteric sclera. Cardiovascular: Normal rate, regular rhythm, normal heart sounds with S1 and S2, distant heart sounds. Pulmonary/Chest: Effort normal and breath sounds normal. Pacemaker present left chest wall. Abdominal: Soft. Bowel sounds are normal. exhibits no distension and no mass. There is no t enderness. There is no rebound and no guarding. Extremeties/Musculoskeletal: Bilateral lower extremity compression stockings present. Neurological: Alert and oriented to person, place, and time. Skin: Skin is warm and dry. Psychiatric: Has a normal mood and affect. DATA Recent Labs Lab 01/05/1961101/04/19 0549 01/03/19 0544 WBC 8.75 8.75 7.89 RBC 4.20 4.03* 4.00* HGB 12.3* 12.1* 12.0* HCT 38.0* 36.8* 36.7* MCV 90.6 91.4 91.6 MCH 29.4 29.9 30.0 MCHC 32.4 32.8 32.8 RDW 53.4* 52.5 53.4* PLT 201 190 195 MPV 9.6 9.2 9.0 DIFFTYPE AUTOMATED AUTOMATED AUTOMATED Recent Labs Lab 01/07/1943701/06/19 0536 01/05/19 0612 NA 139 139 141 K 3.3* 3.4* 4.0 CL 96* 95* 96* CO2 33* 33* 37* BUN 96* 89* 86* CREATININE 2.8* 2.9* 2.8* GLUF 96 103* 99 No results for input(s): CKTOTAL, TROPONINI, TROPONINT, CKMBINDEX in the last 168 hours. Recent Labs Lab 01/07/1943701/06/19 0536 01/05/19 0612 PHOS 3.3 3.5 4.0 Recent Labs Lab 01/05/19 0612 01/04/19 0549 01/03/19 0544 MG 2.1 2.1 2.3 Invalid input(s): ABG No results for input(s): CALCIUM in the last 168 hours. No results for input(s): APTT, INR, PTT in the last 168 hours. PROBLEM LIST Principal Problem: IZZY (acute kidney injury) (HCC) Active Problems: CKD (chronic kidney disease) stage 3, GFR 30-59 ml/min (HCC) Essential hypertension, benign Bilateral lower extremity edema Chronic atrial fibrillation (HCC) Cardiac pacemaker in situ NEETU (obstructive sleep apnea) Pulmonary hypertension (HCC) Right heart failure (HCC) Chronic diastolic heart failure (HCC) ASSESSMENT & PLAN Shortness of breath. Resolved. Secondary to acute diastolic congestive heart failure. Echoc ardiogram on December 27 showed EF 60-65 percent with severe biatrial enlargement. Demadex and Zaroxolyn discontinued. We will continue fluid restriction. Nuclear stress test showed no is chemia. Acute on chronic kidney disease stage III. Secondary to hypotension. Creatinine is stable. Discussed with Dr. Kelly. We will monitor. Torsemide discontinued. Chronic atrial fibrillation status post watchman's procedure. Metoprolol discontinued. [place] ent is not a candidate for anticoagulation due to GI bleed. Deep vein thrombosis prophylaxis. Will continue heparin. LULU within normal limits. Anemia of chronic disease. Hemoglobin has remained stable. Will monitor. Hypotension. Resolved. Hypotension resolved with fluid bolus. All antihypertensives held. Hypokalemia. Will replenish. Morbid obesity with obstructive sleep apnea. Patient is not compliant with CPAP. Plan discussed with patient and his . All questions were answered . All data was review ed. Disposition: Inpatient Code Status: Full Code Nellie Clinton MD 01/07/2019 1:24 PM This entry has been created using [employer] Speech Recognition software and [employer]. The entry has been reviewed and there may still exist sound alike word errors. onversion Trans action, Provider Unknown - 01/07/2019 1:00 PM PDT Progress Notes by José Miguel Hylton at 01/07/19 1300 Author: José Miguel Hylton Service: (none) Author Type: Filed: 01/07/19 1310 Date of Service: 01/07/19 1300 Status: Addendum Public Welfare Director: José Miguel Hylton () Related Notes: Original Note by José Miguel Hylton (Deputy Sheriff Custody) filed at 01/07/19 8079 Visit d/t LOS. Met with Pt and , Pt voiced his frustration and fears of not being able to get up from his bed days before, today I feel better in comparison of the last week. He h opes to be DC tomorrow. Prayer for their hope was offered and accepted. onver sarah Transaction, Provider Unknown - 01/07/2019 10:17 AM PDT Case Management by Lyle Vences RN at 01/07/19 1017 Author: Lyle Vences RN Service: (none) Author Type: Registered Nurse Filed: 01/07/19 1018 Date of Service: 01/07/19 1017 Status: Signed Public Welfare Director: Lyle Vences RN (Registered Nurse) 10:17 AM Michael and his would prefer for him to go home rather than [place]. I sent referral to [facility]. They have had him before and will accept him. onver sarah Transaction, Provider Unknown - 01/07/2019 9:45 AM PDT Therapy Progress Note by Zak Walden PTA at 01/07/19 0945 Author: Zak Walden PTA Service: (none) Author Type: Crank Hand Filed: 01/07/19 1021 Date of Service: 01/07/19 0945 Status: Signed Public Welfare Director: Zak Walden PTA (Crank Hand) PHYSICAL THERAPY TREATMENT NOTE PT Received On: 01/07/19 Reason for Treatment: Deconditioning Requires PT Follow Up: Yes Focus for Next Treatment: Stair Training Recommendations: SNF Recommendation Comments: Pt would perfer to have HHPT and home assist however, has difficul t time ambulating household distances. SNF would be safer prior to returning home to regain mobility. Plan Treatment/Interventions: Continue per Primary PT POC Progress: Progressing toward goals Summary Comments: Pt supine in bed when SUPERVISOR ROVING arrives, agreeable to therapy. therapy focused on LE st rengthening, increasing activity tolerance, and gait training. Prior to activity BP 122/61 i n supine as pt transfers to seated BPdropps to 89/64. Pt was instructed to perform seated ex ercises and BP ryann to 94/55. Pt required decreased supervision for STS as well as ambulatin g and was able to abulate an increased distance compared to previous sessions. Pt would bene fit from continued therapy focusing on increasing activity tolerance, stair training and bal ance exercises. Pt finished therapy in recliner with all needs met. Precautions Other Precautions: fall risk, monitor BP Cognition Overall Cognitive Status: Within Functional Limits Orientation Level: Oriented FUNCTIONAL MOBILITY Bed Mobility Supine to Sit: Min assist (1 LE OOB) - Transfers Sit to/from Stand: Standby assist, Minimal assist (steadying/contact guard) Ambulation Maximal Ambulation Distance (feet): 20+60+60 Total Ambulation Distance (feet): 140 Ambulation Assistance: Minimal assist, Standby assist Distance limited by?: Patient's ability Pattern: Decreased janelle, Forward flexed, Right dec toe clearance, Left dec toe clearance Assistive Device: Walker front wheeled THERAPEUTIC EXERCISE Seated-Exercise Type: Ankle pumps, Seated marching, Long arc quads Seated-Exercise Comments: x10B Activity Tolerance: Patient limited by fatigue Nurse Made Aware: yes Safety Devices in Place: (call light) The patient demonstrated no indication of pain during therapy session. Education Completed: Education Topics: [x] Rationale for PT [x] PT POC [x] DC planning [] Precautions [x] Exercises [] Bed mobility [] Transfer training with hand placement [x] Gait training [] Stair training [] Use of gait belt [] Other Completed with: [x] Patient [] Spouse [] Significant other [] Family [] C aregiver [] Other Completed by: [x] Verbal education [] Demonstration [] Handout [] Other: Response to Education: [x] Stated Understanding [] Reinforcement necessary [] Returned demonstration [] Demonstrated understanding [] No evidence of learning [] Refused PT Goals Goal Formulation: With patient Pt Will Go Supine To Sit: With standby assistance, Met Pt Will Go Sit To Supine: With standby assistance, Met Pt Will Transfer Sit to Stand: With standby assist, Not met Pt Will Ambulate: 150-200 feet, Not met Ambulate Level Assist: With moderate assist, Met, New / revised goal, With standby assist Ambulate with Assistive Device: Walker 4 wheeled Reflects last filed data of patient's status; may be from multiple contributors onver sarah Transaction, Provider Unknown - 01/07/2019 3:00 AM PDT Nurse Progress Note by Anna Tran RN at 01/07/19 0300 Author: Anna Tran RN Service: (none) Author Type: Registered Nurse Filed: 01/07/19 030 Date of Service: 01/07/19 0300 Status: Signed Public Welfare Director: Anna Tran RN (Registered Nurse) No acute changes from previous shift. End of shift audit and 24H chart check completed. Anna Tran RN onver sarah Transaction, Provider Unknown - 01/06/2019 4:31 PM PDT Progress Notes by Hyun Irvin RN at 01/06/19 1631 Author: Hyun Irvin RN Service: (none) Author Type: Registered Nurse Filed: 01/06/19 1633 Date of Service: 01/06/19 163 Status: Signed Public Welfare Director: Hyun Irvin RN (Registered Nurse) Pt hypotensive (71/50) not having any sympyoms. 500cc bolus given. BP now 99/55. BLE dressi ngs removed and to be replaced by wound care tomorrow.End of shifts audits complete Hyun noel RN onver sarah Transaction, Provider Unknown - 01/06/2019 3:17 PM PDT Case Management by Lyle Vences RN at 01/06/19 9257 Author: Lyle Vences RN Service: (none) Author Type: Registered Nurse Filed: 01/06/19 1518 Date of Service: 01/06/197 Status: Signed Public Welfare Director: Lyle Vences RN (Registered Nurse) 3:17 PM Discussed patient with Dr. Clinton. Michael is accepted to [place] as soon as he is med ically ready and cleared by nephrology. onver sarah Transaction, Provider Unknown - 01/06/2019 3:07 PM PDT Progress Notes by Gabby Aguayo RN at 01/06/19 9157 Author: Gabby Aguayo RN Service: Wound/Ostomy Care Author Type: Registered Nurse Filed: 01/06/19 1509 Date of Service: 01/06/19 1507 Status: Signed Public Welfare Director: Gabby Aguayo RN (Registered Nurse) TC received from floor RN regarding wound care orders. They had removed coban type dressing and state that orders did not seem to match dressing that she removed. Floor RN was concern ed that it appeared that these dressings had not been changed in 6 days. In reviewing chart note, we applied 2 layer coban compression wraps bilaterally on 12/31/18. These wraps are designed to go up to 7 days. Floor RN state there is no open areas at this time and that pt has legs elevated. Wound care will return tomorrow to apply 2 layer hanna sarah wraps. Pt is ok with this. Gabby Aguayo RN, BSN, CWCN 01/06/2019 3:09 PM onver sarah Transaction, Provider Unknown - 01/06/2019 2:04 PM PDT Nurse Progress Note by Deneen Mera RN at 01/06/19 4854 Author: Deneen Mera RN Service: (none) Author Type: Registered Nurse Filed: 01/06/19 5917 Date of Service: 01/06/19 5439 Status: Signed Public Welfare Director: Deneen Mera RN (Registered Nurse) Called patient's spouse and updated on status. Deneen Mera RN onver sarah Transaction, Provider Unknown - 01/06/2019 11:44 AM PDT Therapy Progress Note by Zak Walden PTA at 01/06/19 1144 Author: Zak Walden PTA Service: (none) Author Type: Crank Hand Filed: 01/06/19 1220 Date of Service: 01/06/19 1144 Status: Signed Public Welfare Director: Zak Walden PTA (Crank Hand) PHYSICAL THERAPY TREATMENT NOTE PT Received On: 01/06/19 Reason for Treatment: Deconditioning Requires PT Follow Up: Yes Recommendations: SNF Plan Treatment/Interventions: Continue per Primary PT POC Progress: Progressing toward goals Summary Comments: pt supine in bed when SUPERVISOR ROVING arrived, agreeable to therapy. Therapy focused on incre asing activity tolerance and LE strenghtening. Pre activity BP 116/57 in supine seated BP 96 /50 pt states he does not feel dizzy or light headed. Pt was able to stand with decreased best pervision compared to previous sessions and was able to ambulate an increased distance blanco red to previous sessions. When pt starts to fatigue while ambulating he demonstrates an incr eased forward flexed postion and the walker starts to get to far ahead of him. Pt was able t o perform seated exercises with no increase of pain or report of fatigue. Pt would benefit f rom continued therapy focusing on increasing activity tolerance and balance training. Pt fin ished therapy in shower with nursing staff. Precautions Other Precautions: fall risk, monitor BP Cognition Overall Cognitive Status: Within Functional Limits Orientation Level: Oriented FUNCTIONAL MOBILITY Bed Mobility Supine to Sit: Standby assist - Transfers Sit to/from Stand: Minimal assist (steadying/contact guard), Moderate assist (to arise OR l ower) Ambulation Maximal Ambulation Distance (feet): 20+20+20+30 Total Ambulation Distance (feet): 90 Ambulation Assistance: Minimal assist Distance limited by?: Patient's ability Pattern: Decreased janelle, Forward flexed, Right dec toe clearance, Left dec toe clearance Assistive Device: Walker front wheeled THERAPEUTIC EXERCISE Seated-Exercise Type: Ankle pumps, Seated marching, Long arc quads, Ball squeeze Seated-Exercise Comments: x10B Activity Tolerance: Patient limited by fatigue Nurse Made Aware: yes present The patient demonstrated no indication of pain during therapy session. Education Completed: Education Topics: [x] Rationale for PT [x] PT POC [x] DC planning [] Precautions [] Exercises [] Bed mobility [] Transfer training with hand placement [x] Gait training [] Stair training [] Use of gait belt [] Other Completed with: [x] Patient [] Spouse [] Significant other [] Family [] C aregiver [] Other Completed by: [x] Verbal education [] Demonstration [] Handout [] Other: Response to Education: [x] Stated Understanding [] Reinforcement necessary [] Returned demonstration [] Demonstrated understanding [] No evidence of learning [] Refused PT Goals Goal Formulation: With patient Pt Will Go Supine To Sit: With standby assistance, Met Pt Will Go Sit To Supine: With standby assistance, Met Pt Will Transfer Sit to Stand: With standby assist, Not met Pt Will Ambulate: 150-200 feet, Not met Ambulate Level Assist: With moderate assist, Met, New / revised goal, With standby assist Ambulate with Assistive Device: Walker 4 wheeled Reflects last filed data of patient's status; may be from multiple contributors onver sarah Transaction, Provider Unknown - 01/06/2019 11:34 AM PDT Nurse Progress Note by Deneen Mera RN at 01/06/19 1134 Author: Deneen Mera RN Service: (none) Author Type: Registered Nurse Filed: 01/06/19 1135 Date of Service: 01/06/19 1134 Status: Signed Public Welfare Director: Deneen Mera RN (Registered Nurse) Bedside report given to LEONEL Purvis. Deneen Mera RN Nellie Mahajan MD - 01/06/2019 9:37 AM PDTFormatting of this note might be different from t david original. Progress Notes by Nellie Clinton MD at 01/06/19 3301 Author: Nellie Clinton MD Service: Hospitalist Author Type: Physician Filed: 01/06/19 1510 Date of Service: 01/06/19 0938 Status: Signed Public Welfare Director: Nellie Clinton MD (Physician) [facility] Service: Hospitalist Progress Note Hospital Day: LOS: 9 days SUBJECTIVE Patient Summary: 78-year-old male with history of hypertension, hyperlipidemia, morbi d obesity, obstructive sleep apnea,noncompliant on home CPAP, severe pulmonary hypertension, chronic kidney disease stage IIIB, chronic atrial fibrillation not on anticoagulation statu s post watchman's device admitted with acute respiratory distress. Events Overnight: Patient denies any complaints. He states that he feels well. He is anxious to be discharged. Scheduled Medications allopurinol 200 mg Oral Daily ascorbic acid 1,000 mg Oral Daily aspirin 162 mg Oral Daily with breakfast atorvastatin 40 mg Oral Nightly cholecalciferol 1,000 Units Oral Daily ferrous sulfate (65 FE) 65 mg of iron Oral TID WC heparin (porcine) 5000 unit/0.5mL 5,000 Units Subcutaneous 2 times per day metoprolol 12.5 mg Oral BID PARoxetine 20 mg Oral QAM potassium chloride 20 mEq Oral Once sodium chloride (PF) 10 mL Intravenous Q8H torsemide 10 mg Oral Daily Continuous Infusions PRN Medications acetaminophen OR acetaminophen, ammonium lactate, hydrALAZINE, HYDROcodone-acetaminophe n, nitroGLYCERIN, ondansetron OR ondansetron, polyethylene glycol, pramipexole OBJECTIVE Vital Signs: BP 115/73 (BP Location: Left upper arm) | Pulse 89 | Temp 97.5 F (36.4 C) (Oral) | R boni 16 | Ht 1.676 m (5' 6") | Wt 122 kg (268 lb 15.4 oz) | SpO2 95% | BMI 43.41 kg/m Patient Vitals for the past 24 hrs: BP Temp Temp src Pulse Resp SpO2 Weight 01/06/19 0849 - - - 89 - - - 01/06/19 0754 115/73 97.5 F (36.4 C) Oral 115 16 95 % - 01/06/19 0436 102/75 97.6 F (36.4 C) Oral 83 16 95 % 122 kg (268 lb 15.4 oz) 01/05/19 2332 96/59 97.7 F (36.5 C) Oral 80 16 91 % - 01/05/192003 98/66 98.7 F (37.1 C) Oral 78 16 95 % - 01/05/19 1640 98/56 98.2 F (36.8 C) Oral 77 18 93 % - 01/05/19 1141 109/63 97.5 F (36.4 C) Oral 80 18 94 % - Intake/Output Summary (Last 24 hours) at 01/06/19 0946 Last data filed at 01/06/19 0739 Gross per 24 hour Intake 1293 ml Output 1300 ml Net -7 ml Physical Exam: Constitutional: Alert and oriented to person, place, and time. Appears well-developed and w ell-nourished. Patient is sitting up in bed. HEENT: Neck supple, no JVD, non icteric sclera. Cardiovascular: Normal rate, regular rhythm, normal heart sounds with S1 and S2, distant heart sounds. Pulmonary/Chest: Effort normal and breath sounds normal. Pacemaker present left chest wall. Abdominal: Soft. Bowel sounds are normal. exhibits no distension and no mass. There is no t enderness. There is no rebound and no guarding. Extremeties/Musculoskeletal: Bilateral lower extremity compression stockings present. Neurological: Alert and oriented to person, place, and time. Skin: Skin is warm and dry. Psychiatric: Has a normal mood and affect. DATA Recent Labs Lab 01/05/19 0612 01/04/19 0549 01/03/19 0544 WBC 8.75 8.75 7.89 RBC 4.20 4.03* 4.00* HGB 12.3* 12.1* 12.0* HCT 38.0* 36.8* 36.7* MCV 90.6 91.4 91.6 MCH 29.4 29.9 30.0 MCHC 32.4 32.8 32.8 RDW 53.4* 52.5 53.4* PLT 201 190 195 MPV 9.6 9.2 9.0 DIFFTYPE AUTOMATED AUTOMATED AUTOMATED Recent Labs Lab 01/06/19 0536 01/05/19 0612 01/04/19 0549 NA 139 141 140 K 3.4* 4.0 3.4* CL 95* 96* 98* CO2 33* 37* 35* BUN 89* 86* 76* CREATININE 2.9* 2.8* 2.1* GLUF 103* 99 91 No results for input(s): CKTOTAL, TROPONINI, TROPONINT, CKMBINDEX in the last 168 hours. Recent Labs Lab 01/06/19 0536 01/05/19 0612 01/04/19 0549 PHOS 3.5 4.0 3.1 Recent Labs Lab 01/05/19 0612 01/04/19 0549 01/03/19 0544 MG 2.1 2.1 2.3 Invalid input(s): ABG No results for input(s): CALCIUM in the last 168 hours. No results for input(s): APTT, INR, PTT in the last 168 hours. PROBLEM LIST Principal Problem: IZZY (acute kidney injury) ([facility]) Active Problems: CKD (chronic kidney disease) stage 3, GFR 30-59 ml/min ([facility]) Essential hypertension, benign Bilateral lower extremity edema Chronic atrial fibrillation ([facility]) Cardiac pacemaker in situ NEETU (obstructive sleep apnea) Pulmonary hypertension ([facility]) Right heart failure ([facility]) Chronic diastolic heart failure ([facility]) ASSESSMENT & PLAN Shortness of breath. Resolved. Secondary to acute diastolic congestive heart failure. Echoc ardiogram on December 27 showed EF 60-65 percent with severe biatrial enlargement. Will continu e Demadex . Zaroxolyn discontinued. We will continue fluid restriction. Nuclear stress test showed no ischemia. Acute on chronic kidney disease stage III. Secondary to hypotension. Creatinine is trending up. Discussed with Dr. Kelly. We will monitor. We will continue torsemide . Chronic atrial fibrillation status post watchman's procedure. Will continue metoprolol. Pat ient is not a candidate for anticoagulation due to GI bleed. Deep vein thrombosis prophylaxis. Will continue heparin. LULU within normal limits. Anemia of chronic disease. Hemoglobin has remained stable. Will monitor. Hypotension. Resolved. Blood pressure controlled on metoprolol. Hypokalemia. Will replenish. Morbid obesity with obstructive sleep apnea. Patient is not compliant with CPAP. Plan discussed with patient. All questions were answered . All data was reviewed. Disposition: Inpatient Code Status: Full Code Nellie Clinton MD 01/06/2019 9:46 AM This entry has been created using [employer] Speech Recognition software and [employer]. The entry has been reviewed and there may still exist sound alike word errors. onversion Trans action, Provider Unknown - 01/06/2019 6:17 AM PDT Nurse Progress Note by Caryn Polanco RN at 01/06/19616 Author: Caryn Polanco RN Service: (none) Author Type: Registered Nurse Filed: 01/06/19616 Date of Service: 01/06/19616 Status: Signed Public Welfare Director: Caryn Polanco RN (Registered Nurse) A&Ox4. Pt remains on RA. No acute changes during shift. 24 hour chart check and end of shift review completed. Caryn Polanco RN onver sarah Transaction, Provider Unknown - 01/05/2019 3:46 PM PDT Progress Notes by Dayna Roy Candy Catcher at 01/05/19 1546 Author: Julio Saueretic Intern Service: (none) Author Type: Registered gagandeepsmiley Filed: 01/05/191546 Date of Service: 01/05/191545 Status: Attested Public Welfare Director: Julio Saueretic Intern (Registered Dietitian) Cosigner: Jacob baron RD at 01/05/19 1548 Attestation signed by Jacob Diaz RD at 01/05/[address] 01/05/19 4287 Subjective Timepoint Admit Pt c/o Pt triggered for screening secondary to LOS 8. Pt presented to [facility] with SOB and ang darcy. D/C to SNF considered for 01/05 but delayed d/t hypotension; d/c to be considered when B P stabilizes. Pt was alert and answering questions appropriately, was present during vi sit. Reported by Patient Diet Experience Self-selected diet(s) followed Pt reports attempting to follow a 2g sodium diet at home. Pt inconsistently reports his intake has been 50-75% of usual intake some days and 100% of usu al intake other days over the last 10 months; also reports wt gain of 10 lbs in the same marsha eframe. Fluid / Beverage Intake Oral Fluids Amount 2L FR Food Intake Amount of Food Per charting, pt has been consuming 100% of 3 meals/day since 01/02. Type of Food / Meals Cardiac, 2gNa Micronutrient Intake Vitamin Intake C;D Mineral / Element Intake Iron Food and Nutrition Knowledge Area(s) and Level of Knowledge Pt's with questions regarding Na restriction. She said pt has followed RD in past at [facility], doesn't cook with salt, uses Mrs. Medrano and herbs & spices, chooses low-Na foods, tries to read labels more often. Discussed food labels, karo ghing food, portion sizes, avoiding the salt shaker, high-Na vs. low-Na food examples, and e ating out. All questions answered, pt and verbalized understanding, expressed plans for behavior change. Nutrition-Focused Physical Findings Extremities, Muscles and Bones +2 BLE edema, dependent BUE edema Skin Multiple sores on L foot. Wound care is following. Anthropometrics Weight change Per encounters, pt has gained 5.2kg (4.4% BW) in the last 3 months and lost 1 .8kg (1.4% BW) in the last 6 months, which is not significant. Pt's BMI is 43.7, which is co nsidered Class III Obesity. Pt is -15L per I/Os. Biochemical data, medical tests, and procedures reviewed Biochemical data, medical tests, and procedures reviewed Labs reviewed. BUN, Cr are elevate d, and H&H are low, consistent with CKD. Estimated Energy Needs Total Energy Estimated Needs 1978 to 2373 kcal/day Method for Estimating Needs 25 to 30 kcal/kgBW using adjBW of 79.1 kg Estimated Protein Needs Total Protein Estimated Needs 95 to 119 g/day Method for Estimating Needs 1.2 to 1.5 g/kgBW using adjBW of 79.1 kg Recommendations Recommended energy needs Continue diet as ordered. Encourage PO intake as tolerated. Will c ontinue to follow per nutrition protocol. Nutritional Risk Nutritional risk Low Follow up date 01/12/19 Dayna Roy, Candy Catcher onver sarah [place]action, Provider Unknown - 01/05/2019 3:05 PM PDT Progress Notes by Pedrito Crane RPH at 01/05/19 0157 Author: Pedrito Crane RPH Service: Pharmacy Author Type: Pharmacist Filed: 01/05/19 1505 Date of Service: 01/05/19 1505 Status: Signed Public Welfare Director: Pedrito Crane RPH (Pharmacist) Rx CHF Medication Counseling Note Patient received medication counseling for the following CHF medications: (ARBs): losartan (COZAAR) Beta Blockers: metoprolol succinate (TOPROL XL) Diuretics: torsemide (DEMADEX) and metolazone (ZAROXOLYN) I had the pleasure to speak with the patient today regarding his medications utilized in e management of diastolic heart failure. We discussed the mechanism of actions and the impo rtance of adherence to losartan, metoprolol, torsemide and metolazone. He currently does we igh himself at home and owns a scale. It was suggested to him to keep a log of his daily we ights at home and to contact his primary care provider if he were to gain 2-3 pounds in a da y or 5 pounds in a week. A low sodium diet and fluid restriction were also briefly discusse d. The patient demonstrated understanding of the material discussed. Pedrito Crane Yesenia 01/05/2019 3:04 PM Nellie Mahajan MD - 01/05/2019 10:33 AM PDTFormatting of this note might be different from t he original. Progress Notes by Nellie Clinton MD at 01/05/19 1033 Author: Nellie Clinton MD Service: Hospitalist Author Type: Physician Filed: 01/05/19 1532 Date of Service: 01/05/19 1033 Status: Signed Public Welfare Director: Nellie Clinton MD (Physician) [facility] Service: Hospitalist Progress Note Hospital Day: LOS: 8 days SUBJECTIVE Patient Summary: 78-year-old male with history of hypertension, hyperlipidemia, morbi d obesity, obstructive sleep apnea,noncompliant on home CPAP, severe pulmonary hypertension, chronic kidney disease stage IIIB, chronic atrial fibrillation not on anticoagulation statu s post watchman's device admitted with acute respiratory distress. Events Overnight: Patient denies any complaints. He denies any shortness of breath. H e states that he feels well. He had hypotension yesterday which is resolved. Scheduled Medications allopurinol 200 mg Oral Daily ascorbic acid 1,000 mg Oral Daily aspirin 162 mg Oral Daily with breakfast atorvastatin 40 mg Oral Nightly cholecalciferol 1,000 Units Oral Daily ferrous sulfate (65 FE) 65 mg of iron Oral TID WC heparin (porcine) 5000 unit/0.5mL 5,000 Units Subcutaneous 2 times per day metoprolol 12.5 mg Oral BID PARoxetine 20 mg Oral QAM sodium chloride (PF) 10 mL Intravenous Q8H [START ON 01/06/2019] torsemide 10 mg Oral Daily Continuous Infusions PRN Medications acetaminophen OR acetaminophen, ammonium lactate, hydrALAZINE, HYDROcodone-acetaminophe n, nitroGLYCERIN, ondansetron OR ondansetron, polyethylene glycol, pramipexole OBJECTIVE Vital Signs: BP 124/71 (BP Location: Left upper arm) | Pulse 83 | Temp 97.5 F (36.4 C) (Oral) | R boni 18 | Ht 1.676 m (5' 6") | Wt 122.7 kg (270 lb 8.1 oz) | SpO2 98% | BMI 43.66 kg/m Patient Vitals for the past 24 hrs: BP Temp Temp src Pulse Resp SpO2 Weight 01/05/19 0734 124/71 97.5 F (36.4 C) Oral 83 18 98 % - 01/05/19 0448 111/81 98 F (36.7 C) Oral 81 16 98 % 122.7 kg (270 lb 8.1 oz) 01/05/19 0020 110/71 98 F (36.7 C) Oral 68 16 97 % - 01/04/19 2046 90/53 - - - - - - 01/04/19 2043 (!) 83/50 - - 79 - - - 01/04/19 1942 130/71 98 F (36.7 C) Oral 64 18 95 % - 01/04/19 1534 92/57 97.8 F (36.6 C) Oral 77 18 93 % - 01/04/19 1300 100/59 - - 77 18 94 % - 01/04/19 1230 90/54 - - 66 20 95 % - 01/04/19 1206 (!) 83/52 - - 73 20 95 % - 01/04/19 1156 (!) 83/50 97.7 F (36.5 C) Oral 71 20 93 % - Intake/Output Summary (Last 24 hours) at 01/05/19 1038 Last data filed at 01/05/19 0734 Gross per 24 hour Intake 600 ml Output 1225 ml Net -625 ml Physical Exam: Constitutional: Alert and oriented to person, place, and time. Appears well-developed and w ell-nourished. HEENT: Neck supple, no JVD, non icteric sclera. Cardiovascular: Normal rate, regular rhythm, normal heart sounds with S1 and S2, distant heart sounds. Pulmonary/Chest: Effort normal and breath sounds normal. Pacemaker present left chest wall. Abdominal: Soft. Bowel sounds are normal. exhibits no distension and no mass. There is no t enderness. There is no rebound and no guarding. Extremeties/Musculoskeletal: Bilateral lower extremity compression stockings present. Neurological: Alert and oriented to person, place, and time. Skin: Skin is warm and dry. Psychiatric: Has a normal mood and affect. DATA Recent Labs Lab 01/05/1961101/04/19 0549 01/03/19 0544 WBC 8.75 8.75 7.89 RBC 4.20 4.03* 4.00* HGB 12.3* 12.1* 12.0* HCT 38.0* 36.8* 36.7* MCV 90.6 91.4 91.6 MCH 29.4 29.9 30.0 MCHC 32.4 32.8 32.8 RDW 53.4* 52.5 53.4* PLT 201 190 195 MPV 9.6 9.2 9.0 DIFFTYPE AUTOMATED AUTOMATED AUTOMATED Recent Labs Lab 01/05/1961101/04/19 0549 01/03/19 0544 NA 141 140 142 K 4.0 3.4* 3.7 CL 96* 98* 100 CO2 37* 35* 32 BUN 86* 76* 79* CREATININE 2.8* 2.1* 2.2* GLUF 99 91 93 No results for input(s): CKTOTAL, TROPONINI, TROPONINT, CKMBINDEX in the last 168 hours. Recent Labs Lab 01/05/1961101/04/19 0549 03/17/19 0544 PHOS 4.0 3.1 3.2 Recent Labs Lab 01/05/19 0612 01/04/19 0549 01/03/19 0544 MG 2.1 2.1 2.3 Invalid input(s): ABG No results for input(s): CALCIUM in the last 168 hours. No results for input(s): APTT, INR, PTT in the last 168 hours. Us Lulu Resting Result Date: 12/30/2018 *ABIs and TBIs are within normal limits bilaterally. *Dampening of the waveform of the left great toe. The left TBI could be artifactually elevated. Ankle Brachial Indices Categoriza tion of Disease INDEX EXTENT OF DISEASE > 1.0 Normal .90-.99 Mild / Borderline .60-.89 Moderate .50-.59 Severe < .49 Severe Signed by: Jeffery Ramos Sign Date/Time: 12/30/2018 12:43 PM PROBLEM LIST Principal Problem: SOB (shortness of breath) Active Problems: CKD (chronic kidney disease) stage 3, GFR 30-59 ml/min (HCC) Essential hypertension, benign Bilateral lower extremity edema Chronic atrial fibrillation (HCC) Cardiac pacemaker in situ NEETU (obstructive sleep apnea) Pulmonary hypertension (HCC) Right heart failure (HCC) Chronic diastolic heart failure (HCC) ASSESSMENT & PLAN Shortness of breath. Resolved. Secondary to acute diastolic congestive heart failure. Echoc ardiogram on December 27 showed EF 60-65 percent with severe biatrial enlargement. Will continu e Demadex and reduce the dose. Zaroxolyn discontinued. We will continue fluid restriction. N uclear stress test showed no ischemia. Acute on chronic kidney disease stage III. Secondary to hypotension. Discussed with Dr. Ernie horner. We will monitor. We will reduce torsemide dose. Cozaar and Zaroxolyn discontinued. Chronic atrial fibrillation status post watchman's procedure. Will continue metoprolol. Pat ient is not a candidate for anticoagulation due to GI bleed. Deep vein thrombosis prophylaxis. Will continue heparin. LULU within normal limits. Anemia of chronic disease. Hemoglobin is stable. Will monitor. Hypotension. Resolved. Blood pressure controlled on metoprolol. Morbid obesity with obstructive sleep apnea. Patient is not compliant with CPAP. Plan discussed with patient. All questions were answered . All data was reviewed. Disposition: Inpatient Code Status: Full Code Nellie Clinton MD 01/05/2019 10:38 AM This entry has been created using [employer] Speech Recognition software and [employer]. The entry has been reviewed and there may still exist sound alike word errors. onversion Trans action, Provider Unknown - 01/05/2019 10:10 AM PDT Case Management by Lyle Vences RN at 01/05/19 1010 Author: Lyle Vences RN Service: (none) Author Type: Registered Nurse Filed: 01/05/19 1047 Date of Service: 01/05/19 1010 Status: Addendum Public Welfare Director: Lyle Vences RN (Registered Nurse) Related Notes: Original Note by Lyle Vences RN (Registered Nurse) filed at 01/05/19 10 41 10:10 AM Discussed discharge with Michael. I let him know he may NOT discharge today. He said his wif e is at a Dr. appt then heading this way to get him and doesn't know how to get ahold of her . Dr. Clinton will see him soon. 10:[address] Clinton that Michael will not be discharging today. I informed him. 10:45 AM Left message with Yelena that patient will not be discharging today. onver sarah Transaction, Provider Unknown - 01/05/2019 6:32 AM PDT Nurse Progress Note by Angie Bowen RN at 01/05/19 0632 Author: Angie Bowen RN Service: (none) Author Type: Registered Nurse Filed: 01/05/19 0634 Date of Service: 01/05/19 06 Status: Signed Public Welfare Director: Angie Bowen RN (Registered Nurse) Pt A&Ox4, VSS, hypotension at start of shift with beta ann held. All other VS througho ut night we stable. No acute changes from previous shift. Chart check complete. Angie Bowen RN Shar Mehta MD - 01/04/2019 10:10 PM PDT Progress Notes by Shar Dawson MD at 01/04/192209 Author: Shar Dawson MD Service: Hospitalist Author Type: Physician Filed: 01/04/192217 Date of Service: 01/04/192209 Status: Signed Public Welfare Director: Shar Dawson MD (Physician) [facility] Service: Hospitalist Progress Note Pt: Michael Joshi AGE/SEX: 78 y.o. male ROOM: [facility]/7114-1 : 1940 PCP: AMEE URRUTIA ADMIT DATE: 12/27/2018 TODAY'S DATE: 01/04/2019 Hospital Day: LOS: 7 days Post-Op Day: * No surgery found * Hospital Day/Hospital Course: LOS: 7 days As per prior Hospitalist's note: Briefly, 78-year-old male with extensive past medical history most significant for hyperten sarah, hyperlipidemia, morbid obesity, obstructive sleep apnea noncompliant with home CPAP on home oxygen prn, severe pulmonary hypertension complicated with cor pulmonale, CK D stage I II B (baseline creatinine 1.7-[address] 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 Subsequently: pt did well however likely was a bit intravascularly depleted and was hypoten sive but asymptomatic. I stopped his diuretics and BP meds and his bp improved as did his r enal function. He was nearing d/c today but his BP again dropped in the setting of being on lower doses of the antihypertensives and diuretics but again today has a drop in BP. So h w s not d/c'd. He is accepted to a [facility] and also he does get unaboots changed weekly. SUBJECTIVE: Feeling well no complaints despite the hypotension. No chest pain, SOSA. No cough on recumbency. Had no orthopnea or PND. No Abdominal pain, N/V or fever. No dizziness or lightheadedness. Scheduled Medications: allopurinol 200 mg Oral Daily ascorbic acid 1,000 mg Oral Daily aspirin 162 mg Oral Daily with breakfast atorvastatin 40 mg Oral Nightly cholecalciferol 1,000 Units Oral Daily ferrous sulfate (65 FE) 65 mg of iron Oral TID WC heparin (porcine) 5000 unit/0.5mL 5,000 Units Subcutaneous 2 times per day metoprolol 12.5 mg Oral BID PARoxetine 20 mg Oral QAM sodium chloride (PF) 10 mL Intravenous Q8H torsemide 20 mg Oral Daily Continuous Infusions PRN Medications acetaminophen OR acetaminophen, ammonium lactate, hydrALAZINE, HYDROcodone-acetaminophe n, nitroGLYCERIN, ondansetron OR ondansetron, polyethylene glycol, pramipexole Allergy: Allergies Allergen Reactions Vitamin K And Related Shortness of Breath Lisinopril Rash Warfarin Itching and Rash OBJECTIVE: Vitals: Patient Vitals for the past 24 hrs: BP Temp Temp src Pulse Resp SpO2 01/04/196 90/53 - - - - - 01/04/19 204 (!) 83/50 - - 79 - - 01/04/19 194 130/71 98 F (36.7 C) Oral 64 18 95 % 01/04/19 1534 92/57 97.8 F (36.6 C) Oral 77 18 93 % 01/04/19 1300 100/59 - - 77 18 94 % 01/04/19 1230 90/54 - - 66 20 95 % 01/04/19 1206 (!) 83/52 - - 73 20 95 % 01/04/19 1156 (!) 83/50 97.7 F (36.5 C) Oral 71 20 93 % 01/04/19 0756 148/77 - - 74 - - 01/04/19 0359 118/68 98.7 F (37.1 C) Oral 65 20 96 % 01/03/19 2326 111/71 98.2 F (36.8 C) Oral 69 20 95 % I&O Detailed Table: Intake/Output Summary (Last 24 hours) at 01/04/192210 Last data filed at 01/04/19 1945 Gross per 24 hour Intake 1800 ml Output 2375 ml Net -575 ml No data found. Hemodynamics Last 24hrs: Physical Examination: Constitutional: Alert and oriented to person, place, and time. Appears well-developed and w ell-nourished. NAD calm, no respiratory distress. Awake alert and conversant seems comforta ble presently without complaints patient remains in good spirits everyday HEENT: Neck supple, no JVD, non icteric sclera. Cardiovascular: Normal rate, regular rhythm, normal heart sounds, and intact distal pulses. Exam reveals no appreciated gallop or friction rub. No murmur heard. Pulmonary/Chest: Effort normal and breath sounds normal. No stridor. No respiratory distres s. no wheezes. no rales. exhibits no tenderness. Abdominal: Soft. Bowel sounds are normal. exhibits no distension. There is no tenderness. T here is no rebound and no guarding. Extremeties/Musculoskeletal: Normal general range of motion. unaboot on capillary refill le ss than 2 seconds bilaterally. Skin dry Neurological: Alert and oriented to person, place, and time. Has normal reflexes. No olvin s cranial nerve or focal deficit. Exhibits normal muscle tone. Coordination normal. Skin: Skin is warm and dry. No rash noted. No erythema. No pallor. Of visible skin Psychiatric: Has a normal mood and affect given situation. Behavior is normal. Judgment nor mal for patient. Bright affect LABS: Recent Labs Lab 01/04/19 0549 01/03/19 0544 01/02/19 0552 WBC 8.75 7.89 8.72 HGB 12.1* 12.0* 11.9* HCT 36.8* 36.7* 37.0* PLT 190 195 211 NEUTOPHILPCT 75.27 73.16 73.05 MONOPCT 6.27 6.90 8.21 Recent Labs Lab 01/04/19 0549 01/03/19 0544 01/02/19 0552 NA 140 142 139 K 3.4* 3.7 3.5 CL 98* 100 97* CO2 35* 32 30 BUN 76* 79* 86* CREATININE 2.1* 2.2* 2.9* Phosphorus: Lab Results Component Value Date PHOS 3.1 01/04/2019 Invalid input(s): LABALBU Recent Labs Lab 01/04/19 0549 01/03/19 0544 01/02/19 0552 MG 2.1 2.3 2.3 No results for input(s): AMYLASE in the last 168 hours. No results for input(s): PHART, PO2ART, LAH0DNA, P5LZBGYS, BEART in the last 168 hours. No results for input(s): APTT, INR, PTT in the last 168 hours. No results for input(s): TSH, T3FREE, FREET4 in the last 168 hours. No results for input(s): CKTOTAL, TROPONINI, TROPONINT, CKMBINDEX in the last 168 hours. Results No results found for the last 72 hours. RADIOLOGY: Ks Myocardial Perfusion Spect (stress And Rest) Result Date: 12/28/2018 1. Mild heterogeneity of uptake on both rest and stress images probably related to patient body habitus/artifact. No definite evidence of ischemia or infarct. See above. 2. Normal L V wall motion. 3. LVEF 49% rest, 62% stress. Low risk stratification. Signed by: Kaleb Gray Sign Date/Time: 12/28/2018 1:56 PM Echo Cardiac Adult Complete Result Date: 12/27/2018 1. This was a technically difficult study with suboptimal views. 2. Adequate EF 3. Severe b i-atrial enlargement. PROBLEM LIST Principal Problem: SOB (shortness of breath) Active Problems: CKD (chronic kidney disease) stage 3, GFR 30-59 ml/min (HCC) Essential hypertension, benign Bilateral lower extremity edema Chronic atrial fibrillation (HCC) Cardiac pacemaker in situ Pulmonary hypertension (HCC) Right heart failure (HCC) Chronic systolic heart failure ([facility]) ASSESSMENT & PLAN 1. Acute respiratory distress : As per prior Hospitalist's note: -Resolving. -Multifactorial: Acute on chronic heart failure with preserved ejection fraction exacerbati on, obstructive sleep apnea with noncompliance with home CPAP, Severe pulmonary hypertension complicated by cor pulmonale, and morbid obesity. Possible anginal equivalent. -Likely etiology secondary to increased po fluid intake. Patient notes adherence to po med ication and salt restriction. -Hemodynamically stable. -Electrolytes reviewed. Target potassium greater than 4 and target magnesium greater than 2. -2-D echocardiogram 12/27 demonstrates EF 60-65 percent, mild concentric left ventricula r hypertrophy with mildly impaired right ventricular systolic function. CVP 15 mmHg. -Home diuretic therapy: Torsemide 40 mg po bid and metolazone 10 mg. -We increased diuretic therapy to torsemide 50 mg po bid and continue with metolazone 10 mg -initiated on 12/26. -Strict I's and O's. Target net negative 2 L. -Daily weights, kindly, use standing weight. -Fluid and salt restriction. -Supportive care. CPAP qhs -We will order nuclear medicine stress test, ordered when the patient was admitted secondar y to patient's inability to lay flat. 12/29/18: Clinically seems to be improving, creatinine climbing presently Slightly decrea se torsemide to prior 40mg bid dose and c/w remaining meds and follow 12/30/18: Patient reports breathing currently stable and markedly improved from earlier this admission. Continue with current regimen for now, follow, and adjust as needed based on progress. 12/31/18: Continue with current regimen for now, follow, and adjust as needed based on prog ress. 01/01/19: Seems to be doing well presently continue with current option supplementation pro mote pulmonary toilet as possible. 01/02/19: Clinically seems improved from earlier on tolerating the gentle hydration at prese nt. Continue with current management and follow 01/03/19: Acute respiratory distress seems to be improved. Continue supportive care promote primary toilet watch find status closely. 01/04/19: improved Continues on low dose oxygen. 2. CKD stage III B presently with an element of acute renal failure: As per prior Hospitalist's note: -Baseline creatinine 1.7-2 -Avoid nephrotoxic agents -Renally dose medications -Management per point #1. 12/29/18: creatinine increasing some,. See above 12/30/18: Patient's creatinine and BUN increased today I do suspect prerenal azotemia in the setting of diuresis. Patient currently seems symptomatically improved in response to the di uresis but he might be a bit dry at present. Will hold his diuretics today resume tomorrow b ut depending up on his labs tomorrow. Promote renal hygiene as possible. I will also liberal ize the fluid restriction from 1500 cc to 2 L. 12/31/18: Renal function worsened some today. Seems ongoingly volume depleted. will give ivf and follow progress. Stopped acei and diuretics and other bp meds now as well. If renal function worse tomorrow consider nephrology involvement. 01/01/19: Renal function a bit worse today. Suspect there could always be an element of ATN with dehydration that the patient they have had in the setting of needed diuresis. Discusse d with nephrology and they will see the patient. Decreased his metoprolol dose today told fl ail allow for some of it to be given as it would want to avoid any uncontrolled tachycardia to percent. Placed on a low-dose of IV fluids await recommendations from nephrology. 01/02/19: Given the recovery was not as immediate as preventive hoped when hydration started and diuretics being stopped as well as holding some other medications suspect there may of been an element of ATN at play. Currently renal function seems to be starting to turn around . Continue gentle hydration have not added back INDIO inhibitor or diuretics at present as wel l need to be decided later unless recommended by nephrology. 01/03/19: Renal function seeming to improve as below. IV fluids stopped. Patient currently o ff his ARB and diuretics and blood pressure climbing just a bit. Will add back torsemide at a lower dose and Cozaar at a lower dose and follow how he does. 01/04/19: improving . Recent Labs Lab 01/04/19 0549 01/03/19 0544 01/02/19 0552 NA 140 142 139 K 3.4* 3.7 3.5 CL 98* 100 97* CO2 35* 32 30 BUN 76* 79* 86* CREATININE 2.1* 2.2* 2.9* EGFR 31* 29* 21* PHOS 3.1 3.2 4.2 3. Normocytic anemia: As per prior Hospitalist's note: -Ferritin 33 and TIBC 287 labs obtained on 12/27 -Likely etiology is possible anemia of chronic disease with superimposed iron deficiency an emia. -We will order ferrous sulfate tid -No indication for transfusion at this time. 12/29/18: Increasing h/h presently. 12/30/18: as below. Continue with current regimen and follow. 12/31/18: Improving as below 01/01/19: Stable as below continue to follow. 01/02/19: Presently stable minimal decreased from yesterday suspect related to hydration. Co ntinue to follow Recent Labs Lab 01/04/19 0549 01/03/19 0544 01/02/19 0552 WBC 8.75 7.89 8.72 HGB 12.1* 12.0* 11.9* HCT 36.8* 36.7* 37.0* PLT 190 195 211 4. Chronic atrial fibrillation status post watchman's procedure: As per prior Hospitalist's note: -Target heart rate at rest persistently less than 110 bpm. -Decrease home rate control medication: Metoprolol 50 mg po bid to 25 mg po bid to allow fo r physiologic response. -No anticoagulation secondary to history of GI bleed. 12/29/18: As above 12/30/18: Continue with current regimen for now, follow, and adjust as needed based on progr ess. 12/31/18: Continue with current regimen for now, follow, and adjust as needed based on prog ress. 01/01/19: Continue current regimen for now the exception of decreasing the dose of metoprol ol so he can get it and hopefully tolerate with respect to his blood pressure tension increa sed back to his prior dose of possible second. 01/02/19: Will increase the dose of Lopressor again to his prior dose of 25 mg po bid in the setting of appropriate blood pressure should feel a tolerate this I would think. 01/03/19: Reasonable rate control on Lopressor will resume his prior dose now not on anticoa gulation as mentioned above due to prior GI bleed. 01/04/19: as above rate controlled and off anticoag due to past bleed. 5. Hypertension: As per prior Hospitalist's note: Resume home blood pressure medication: Losartan 100 mg q daily and amlodipine 10 mg q daily . -Hydralazine prn for decreased afterload reduction. 12/29/18: Continue with current regimen for now, follow, and adjust as needed based on pro marino. 12/30/18: Pressure currently controlled as below. No change today.Continue with current jennifer men for now, follow, and adjust as needed based on progress. 12/31/18: Currently hypotensive see below. 01/02/19: Patient's blood pressure does seem to be coming up some. Seems appropriate to add back the full dose of metoprolol that he was on before and see if he tolerates it. Have not added back any antihypertensives yet but suspect in the near future this may be needed. Awai t any potential recommendations from nephrology. 01/03/19: Hypotension seems to have resolved presently currently blood pressure climbing a b it. We will add 50 mg of Cozaar he was on 100 mg prior. Adding back torsemide 20 mg was on b id and also not adding back metolazone at present. Vitals: 01/04/19 1534 01/04/19 1942 01/04/19 2043 01/04/19 204 BP: 92/57 130/71 (!) 83/50 90/53 BP Location: Left upper arm Left upper arm Pulse: 77 64 79 Resp: 18 18 Temp: 97.8 F (36.6 C) 98 F (36.7 C) TempSrc: Oral Oral SpO2: 93% 95% Height: HYPOTENSION: Assessment: Doubt sepsis as no clear suggestion of infection at present. Suspect volume r elated as recently diuresed and also on antihypertensives. Yesterday I stopped diuretics an d today he is hypotensive with worsened renal fucntion as well. I stopped his BP meds and g ave 500cc saline boluses x 2. Seems improved presently but will have ot follow his volume s tatus and decide about further med mgt based on his progress. 01/01/19: Hypotensive again this morning then became up some patient on low-dose IV fluids for now to follow on this as we want to avoid overhydration in the setting of need for diure sis before await recommendations from nephrology. 01/02/19: Hypotension seems improved please see hypertension above: 01/04/19: BP low again today in setting of slow titration of home meds but still less than h e was getting. Hypomagnesemia: 12/29/18: Continue with current regimen for now, follow, and adjust as needed based on pro marino. 12/30/18: Continue to follow and replace as needed. 12/31/18: Follow and replace prn. 01/02/19: Follow replace as needed Recent Labs Lab 01/04/19 0549 01/03/19 0544 01/02/19 0552 MG 2.1 2.3 2.3 As per prior Hospitalist's note: Deep vein thrombosis prophylaxis: Heparin bid secondary to history of GI bleed and presentl y on aspirin therapy. Disposition: 01/02/19: Depending up on patient's progress if he continues to improve tomorrow with improv ing renal function stable blood pressure and no other acute problems of present there is a w as the possibility and the next day or so he may be able to discharge to his rehab facility. When he does go follow-up and management of his blood pressure with addition or titration o r adjustment of medications may be needed after discharge. 01/04/19: was planned to d/c to [facility] today but again hypotension. SHAR DAWSON MD 01/04/2019 10:11 PM Greater than 35 minutes spent today overall in coordination of care, seeing and managing pa meghan, review of data, coordination with staff, coordination with involved consultants, and including any scheduled multidisciplinary rounding focused on the patient with 50 percent or more spent seeing and managing patient and counseling/coordination. Dictation software, [employer], used which may contain error for similar sounding words even af ter review. Personal communication requested for any clarification. Portions of this chart may have been copied from previous notes for continuity of care purp ose onversion Transac tion, Provider Unknown - 01/04/2019 2:32 PM PDTFormatting of this note might be different f rom the original. Progress Notes by Pablo Larson RN at 01/04/19 1432 Author: Pablo Larson RN Service: (none) Author Type: Registered Nurse Filed: 01/04/19 1433 Date of Service: 01/04/19 1432 Status: Signed Public Welfare Director: Pablo Larson RN (Registered Nurse) Patient had decreased Bp's for part of the day, they are on the upward trend now, and Dr. Maritza walker choose to delay pt d/c and keep overnight for observation. onver sarah Transaction, Provider Unknown - 01/04/2019 9:00 AM PDT Case Management by Louise Mancilla RN at 01/04/19 0900 Author: Louise Mancilla RN Service: (none) Author Type: Registered Nurse Filed: 01/04/19 1217 Date of Service: 01/04/19 09 Status: Addendum Public Welfare Director: Louise Mancilla RN (Registered Nurse) Related Notes: Original Note by Louise Mancilla RN (Registered Nurse) filed at 01/04/19 1021 0900: called Jl at [place]- no answer, left voice mail. 1015: called [place] again- was transferred to [place] again- no answer. I called back an d asked if there was another way to get a hold of him. Raine whom answered the phone said that she will try to track him down and have him call me back. 1130: Akil at [place] called back and said they can accept the pt today. Notified Alessandro CASTANEDA. 1155: was informed by Alessandro CASTANEDA and Dr Dawson that pt just had some soft blood pressures ( pt not symptomatic)- he wants to hold off on discharge today and watch pressures. Called [place] [facility] to update him- no answer, left voice mail. onver sarah Transaction, Provider Unknown - 01/04/2019 6:25 AM PDT Nurse Progress Note by Angie Bowen RN at 01/04/19624 Author: Angie Bowen RN Service: (none) Author Type: Registered Nurse Filed: 01/04/19624 Date of Service: 01/04/19624 Status: Signed Public Welfare Director: Angie Bowen RN (Registered Nurse) Pt A&Ox4, VSS, no acute changes from previous shift. Chart check complete. Angie cunningham RN onver sarah Transaction, Provider Unknown - 01/03/2019 5:01 PM PDT Nurse Progress Note by Gabby Groves RN at 01/03/191700 Author: Gabby Groves RN Service: (none) Author Type: Registered Nurse Filed: 01/03/191701 Date of Service: 01/03/191700 Status: Signed Public Welfare Director: Gabby Stump, RN (Registered Nurse) Pt stable throughout shift. Wound care to toes completed. Plan to DC home. at [facility]. No restraints, blood, protocols, parameter meds, or signed and held orders. End of shift review complete. Shar Mehta MD - 01/03/2019 10:12 AM PDT Progress Notes by Shar Dawson MD at 01/03/19 1012 Author: Shar Dawson MD Service: Hospitalist Author Type: Physician Filed: 01/03/19 1738 Date of Service: 01/03/19 1012 Status: Signed Public Welfare Director: Shar Dawson MD (Physician) [facility] Service: Hospitalist Progress Note Pt: Michael Joshi AGE/SEX: 78 y.o. male ROOM: [facility]- : 1940 PCP: AMEE URRUTIA ADMIT DATE: 12/27/2018 TODAY'S DATE: 01/03/2019 Hospital Day: LOS: 6 days Post-Op Day: * No surgery found * Hospital Day/Hospital Course: LOS: 6 days As per prior Hospitalist's note: Briefly, 78-year-old male with extensive past medical history most significant for hyperten sarah, hyperlipidemia, morbid obesity, obstructive sleep apnea noncompliant with home CPAP on home oxygen prn, severe pulmonary hypertension complicated with cor pulmonale, CK D stage I II B (baseline creatinine 1.7-[address] 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 SUBJECTIVE: Patient without complaints as usual he reports feeling generally well. Blood pressure does seem to be climbing a bit and systolic up to 170 at one time. No chest pain, SOSA. No cough on recumbency. Had no orthopnea or PND. No Abdominal pain, N/V or fever. No dizziness or lightheadedness. Scheduled Medications: allopurinol 200 mg Oral Daily ascorbic acid 1,000 mg Oral Daily aspirin 162 mg Oral Daily with breakfast atorvastatin 40 mg Oral Nightly cholecalciferol 1,000 Units Oral Daily ferrous sulfate (65 FE) 65 mg of iron Oral TID WC heparin (porcine) 5000 unit/0.5mL 5,000 Units Subcutaneous 2 times per day losartan 50 mg Oral Daily metoprolol 25 mg Oral BID PARoxetine 20 mg Oral QAM sodium chloride (PF) 10 mL Intravenous Q8H torsemide 20 mg Oral Daily Continuous Infusions PRN Medications acetaminophen OR acetaminophen, ammonium lactate, hydrALAZINE, HYDROcodone-acetaminophe n, nitroGLYCERIN, ondansetron OR ondansetron, polyethylene glycol, pramipexole Allergy: Allergies Allergen Reactions Vitamin K And Related Shortness of Breath Lisinopril Rash Warfarin Itching and Rash OBJECTIVE: Vitals: Patient Vitals for the past 24 hrs: BP Temp Temp src Pulse Resp SpO2 01/03/19 0834 (!) 170/97 - - 82 - - 01/03/19 0743 153/77 97.8 F (36.6 C) Oral 73 16 98 % 01/03/19 0359 124/75 97.8 F (36.6 C) Oral 71 16 97 % 01/02/19 2342 122/67 98.1 F (36.7 C) Oral 70 16 98 % 01/02/19 2211 115/69 - - 70 - - 01/02/19 1919 128/72 97.8 F (36.6 C) Oral 80 16 98 % 01/02/19 1532 129/63 97.7 F (36.5 C) Oral 77 16 99 % 01/02/19 1143 100/57 98.3 F (36.8 C) Oral 72 16 98 % I&O Detailed Table: Intake/Output Summary (Last 24 hours) at 01/03/19 1012 Last data filed at 01/03/19 0839 Gross per 24 hour Intake 3011 ml Output 1875 ml Net 1136 ml No data found. Hemodynamics Last 24hrs: Physical Examination: Constitutional: Alert and oriented to person, place, and time. Appears well-developed and w ell-nourished. NAD calm, no respiratory distress. Awake alert and conversant seems comforta ble presently without complaints patient remains in good spirits HEENT: Neck supple, no JVD, non icteric sclera. Cardiovascular: Normal rate, regular rhythm, normal heart sounds, and intact distal pulses. Exam reveals no appreciated gallop or friction rub. No murmur heard. Pulmonary/Chest: Effort normal and breath sounds normal. No stridor. No respiratory distres s. no wheezes. no rales. exhibits no tenderness. Abdominal: Soft. Bowel sounds are normal. exhibits no distension. There is no tenderness. T here is no rebound and no guarding. Extremeties/Musculoskeletal: Normal general range of motion. unaboot on capillary refill le ss than 2 seconds bilaterally. Neurological: Alert and oriented to person, place, and time. Has normal reflexes. No olvin s cranial nerve or focal deficit. Exhibits normal muscle tone. Coordination normal. Skin: Skin is warm and dry. No rash noted. No erythema. No pallor. Of visible skin Psychiatric: Has a normal mood and affect given situation. Behavior is normal. Judgment nor mal for patient. Bright affect LABS: Recent Labs Lab 01/03/19 0544 01/02/19 0552 01/01/19 0542 WBC 7.89 8.72 9.46 HGB 12.0* 11.9* 12.2* HCT 36.7* 37.0* 37.3* PLT 195 211 220 NEUTOPHILPCT 73.16 73.05 73.95 MONOPCT 6.90 8.21 6.69 Recent Labs Lab 01/03/19 0544 01/02/19 0552 01/01/19 0542 NA 142 139 138 K 3.7 3.5 3.4* CL 100 97* 93* CO2 32 30 33* BUN 79* 86* 84* CREATININE 2.2* 2.9* 3.3* Phosphorus: Lab Results Component Value Date PHOS 3.2 01/03/2019 Invalid input(s): LABALBU Recent Labs Lab 01/03/19 0544 01/02/19 0552 01/01/19 0542 MG 2.3 2.3 2.3 No results for input(s): AMYLASE in the last 168 hours. No results for input(s): PHART, PO2ART, OQA8RDJ, T8QZMOLM, BEART in the last 168 hours. No results for input(s): APTT, INR, PTT in the last 168 hours. No results for input(s): TSH, T3FREE, FREET4 in the last 168 hours. No results for input(s): CKTOTAL, TROPONINI, TROPONINT, CKMBINDEX in the last 168 hours. Results No results found for the last 72 hours. RADIOLOGY: Ks Myocardial Perfusion Spect (stress And Rest) Result Date: 12/28/2018 1. Mild heterogeneity of uptake on both rest and stress images probably related to patient body habitus/artifact. No definite evidence of ischemia or infarct. See above. 2. Normal L V wall motion. 3. LVEF 49% rest, 62% stress. Low risk stratification. Signed by: Kaleb Gray Sign Date/Time: 12/28/2018 1:56 PM Echo Cardiac Adult Complete Result Date: 12/27/2018 1. This was a technically difficult study with suboptimal views. 2. Adequate EF 3. Severe b i-atrial enlargement. PROBLEM LIST Principal Problem: SOB (shortness of breath) Active Problems: CKD (chronic kidney disease) stage 3, GFR 30-59 ml/min (HCC) Essential hypertension, benign Bilateral lower extremity edema Chronic atrial fibrillation (HCC) Cardiac pacemaker in situ Pulmonary hypertension (HCC) Right heart failure (HCC) Chronic systolic heart failure ([facility]) ASSESSMENT & PLAN 1. Acute respiratory distress : As per prior Hospitalist's note: -Resolving. -Multifactorial: Acute on chronic heart failure with preserved ejection fraction exacerbati on, obstructive sleep apnea with noncompliance with home CPAP, Severe pulmonary hypertension complicated by cor pulmonale, and morbid obesity. Possible anginal equivalent. -Likely etiology secondary to increased po fluid intake. Patient notes adherence to po med ication and salt restriction. -Hemodynamically stable. -Electrolytes reviewed. Target potassium greater than 4 and target magnesium greater than 2. -2-D echocardiogram 12/27 demonstrates EF 60-65 percent, mild concentric left ventricula r hypertrophy with mildly impaired right ventricular systolic function. CVP 15 mmHg. -Home diuretic therapy: Torsemide 40 mg po bid and metolazone 10 mg. -We increased diuretic therapy to torsemide 50 mg po bid and continue with metolazone 10 mg -initiated on 12/26. -Strict I's and O's. Target net negative 2 L. -Daily weights, kindly, use standing weight. -Fluid and salt restriction. -Supportive care. CPAP qhs -We will order nuclear medicine stress test, ordered when the patient was admitted secondar y to patient's inability to lay flat. 12/29/18: Clinically seems to be improving, creatinine climbing presently Slightly decrea se torsemide to prior 40mg bid dose and c/w remaining meds and follow 12/30/18: Patient reports breathing currently stable and markedly improved from earlier this admission. Continue with current regimen for now, follow, and adjust as needed based on progress. 12/31/18: Continue with current regimen for now, follow, and adjust as needed based on prog ress. 01/01/19: Seems to be doing well presently continue with current option supplementation pro mote pulmonary toilet as possible. 01/02/19: Clinically seems improved from earlier on tolerating the gentle hydration at prese nt. Continue with current management and follow 01/03/19: Acute respiratory distress seems to be improved. Continue supportive care promote primary toilet watch find status closely. 2. CKD stage III B presently with an element of acute renal failure: As per prior Hospitalist's note: -Baseline creatinine 1.7-2 -Avoid nephrotoxic agents -Renally dose medications -Management per point #1. 12/29/18: creatinine increasing some,. See above 12/30/18: Patient's creatinine and BUN increased today I do suspect prerenal azotemia in the setting of diuresis. Patient currently seems symptomatically improved in response to the di uresis but he might be a bit dry at present. Will hold his diuretics today resume tomorrow b ut depending up on his labs tomorrow. Promote renal hygiene as possible. I will also liberal ize the fluid restriction from 1500 cc to 2 L. 12/31/18: Renal function worsened some today. Seems ongoingly volume depleted. will give ivf and follow progress. Stopped acei and diuretics and other bp meds now as well. If renal function worse tomorrow consider nephrology involvement. 01/01/19: Renal function a bit worse today. Suspect there could always be an element of ATN with dehydration that the patient they have had in the setting of needed diuresis. Discusse d with nephrology and they will see the patient. Decreased his metoprolol dose today told fl ail allow for some of it to be given as it would want to avoid any uncontrolled tachycardia to percent. Placed on a low-dose of IV fluids await recommendations from nephrology. 01/02/19: Given the recovery was not as immediate as preventive hoped when hydration started and diuretics being stopped as well as holding some other medications suspect there may of been an element of ATN at play. Currently renal function seems to be starting to turn around . Continue gentle hydration have not added back INDIO inhibitor or diuretics at present as wel l need to be decided later unless recommended by nephrology. 01/03/19: Renal function seeming to improve as below. IV fluids stopped. Patient currently o ff his ARB and diuretics and blood pressure climbing just a bit. Will add back torsemide at a lower dose and Cozaar at a lower dose and follow how he does. Recent Labs Lab 01/03/19 0544 01/02/19 0552 01/01/19 0542 NA 142 139 138 K 3.7 3.5 3.4* CL 100 97* 93* CO2 32 30 33* BUN 79* 86* 84* CREATININE 2.2* 2.9* 3.3* EGFR 29* 21* 18* PHOS 3.2 4.2 4.0 3. Normocytic anemia: As per prior Hospitalist's note: -Ferritin 33 and TIBC 287 labs obtained on 12/27 -Likely etiology is possible anemia of chronic disease with superimposed iron deficiency an emia. -We will order ferrous sulfate tid -No indication for transfusion at this time. 12/29/18: Increasing h/h presently. 12/30/18: as below. Continue with current regimen and follow. 12/31/18: Improving as below 01/01/19: Stable as below continue to follow. 01/02/19: Presently stable minimal decreased from yesterday suspect related to hydration. Co ntinue to follow Recent Labs Lab 01/03/19 0544 01/02/19 0552 01/01/19 0542 WBC 7.89 8.72 9.46 HGB 12.0* 11.9* 12.2* HCT 36.7* 37.0* 37.3* PLT 195 211 220 4. Chronic atrial fibrillation status post watchman's procedure: As per prior Hospitalist's note: -Target heart rate at rest persistently less than 110 bpm. -Decrease home rate control medication: Metoprolol 50 mg po bid to 25 mg po bid to allow fo r physiologic response. -No anticoagulation secondary to history of GI bleed. 12/29/18: As above 12/30/18: Continue with current regimen for now, follow, and adjust as needed based on progr ess. 12/31/18: Continue with current regimen for now, follow, and adjust as needed based on prog ress. 01/01/19: Continue current regimen for now the exception of decreasing the dose of metoprol ol so he can get it and hopefully tolerate with respect to his blood pressure tension increa sed back to his prior dose of possible second. 01/02/19: Will increase the dose of Lopressor again to his prior dose of 25 mg po bid in the setting of appropriate blood pressure should feel a tolerate this I would think. 01/03/19: Reasonable rate control on Lopressor will resume his prior dose now not on anticoa gulation as mentioned above due to prior GI bleed. 5. Hypertension: As per prior Hospitalist's note: Resume home blood pressure medication: Losartan 100 mg q daily and amlodipine 10 mg q daily . -Hydralazine prn for decreased afterload reduction. 12/29/18: Continue with current regimen for now, follow, and adjust as needed based on pro marino. 12/30/18: Pressure currently controlled as below. No change today.Continue with current jennifer men for now, follow, and adjust as needed based on progress. 12/31/18: Currently hypotensive see below. 01/02/19: Patient's blood pressure does seem to be coming up some. Seems appropriate to add back the full dose of metoprolol that he was on before and see if he tolerates it. Have not added back any antihypertensives yet but suspect in the near future this may be needed. Awai t any potential recommendations from nephrology. 01/03/19: Hypotension seems to have resolved presently currently blood pressure climbing a b it. We will add 50 mg of Cozaar he was on 100 mg prior. Adding back torsemide 20 mg was on b id and also not adding back metolazone at present. Vitals: 01/02/19 2342 01/03/19 0359 01/03/19 0743 01/03/19 0834 BP: 122/67 124/75 153/77 (!) 170/97 BP Location: Right upper arm Right upper arm Right upper arm Pulse: 70 71 73 82 Resp: Temp: 98.1 F (36.7 C) 97.8 F (36.6 C) 97.8 F (36.6 C) TempSrc: Oral Oral Oral SpO2: 98% 97% 98% Height: HYPOTENSION: Assessment: Doubt sepsis as no clear suggestion of infection at present. Suspect volume r elated as recently diuresed and also on antihypertensives. Yesterday I stopped diuretics an d today he is hypotensive with worsened renal fucntion as well. I stopped his BP meds and g ave 500cc saline boluses x 2. Seems improved presently but will have ot follow his volume s tatus and decide about further med mgt based on his progress. 01/01/19: Hypotensive again this morning then became up some patient on low-dose IV fluids for now to follow on this as we want to avoid overhydration in the setting of need for diure sis before await recommendations from nephrology. 01/02/19: Hypotension seems improved please see hypertension above: Hypomagnesemia: 12/29/18: Continue with current regimen for now, follow, and adjust as needed based on pro marino. 12/30/18: Continue to follow and replace as needed. 12/31/18: Follow and replace prn. 01/02/19: Follow replace as needed Recent Labs Lab 01/03/19 0544 01/02/19 0552 01/01/19 0542 MG 2.3 2.3 2.3 As per prior Hospitalist's note: Deep vein thrombosis prophylaxis: Heparin bid secondary to history of GI bleed and presentl y on aspirin therapy. Disposition: 01/02/19: Depending up on patient's progress if he continues to improve tomorrow with improv ing renal function stable blood pressure and no other acute problems of present there is a w as the possibility and the next day or so he may be able to discharge to his rehab facility. When he does go follow-up and management of his blood pressure with addition or titration o r adjustment of medications may be needed after discharge. SHAR DAWSON MD 01/03/2019 10:12 AM Greater than 35 minutes spent today overall in coordination of care, seeing and managing pa tient, review of data, coordination with staff, coordination with involved consultants, and including any scheduled multidisciplinary rounding focused on the patient with 50 percent or more spent seeing and managing patient and counseling/coordination. Dictation software, [employer], used which may contain error for similar sounding words even af ter review. Personal communication requested for any clarification. Portions of this chart may have been copied from previous notes for continuity of care purp ose onversion Transac tion, Provider Unknown - 01/03/2019 6:17 AM PDTFormatting of this note might be different f rom the original. Nurse Progress Note by Angie Bowen RN at 01/03/19616 Author: Angie Bowen RN Service: (none) Author Type: Registered Nurse Filed: 01/03/19617 Date of Service: 01/03/19616 Status: Signed Public Welfare Director: Angie Bowen RN (Registered Nurse) Pt A&Ox4, VSS. No acute changes from previous shift. Chart check complete. Angie mcintosh RN Shar Mehta MD - 01/02/2019 9:58 AM PDT Progress Notes by Shar Dawson MD at 01/02/19957 Author: Shar Dawson MD Service: Hospitalist Author Type: Physician Filed: 01/02/19 1630 Date of Service: 01/02/19957 Status: Signed Public Welfare Director: Shar Dawson MD (Physician) [facility] Service: Hospitalist Progress Note Pt: Michael Joshi AGE/SEX: 78 y.o. male ROOM: 7114/7114-1 : 1940 PCP: AMEE URRUTIA ADMIT DATE: 12/27/2018 TODAY'S DATE: 01/02/2019 Hospital Day: LOS: 5 days Post-Op Day: * No surgery found * Hospital Day/Hospital Course: LOS: 5 days As per prior Hospitalist's note: Briefly, 78-year-old male with extensive past medical history most significant for hyperten sarah, hyperlipidemia, morbid obesity, obstructive sleep apnea noncompliant with home CPAP on home oxygen prn, severe pulmonary hypertension complicated with cor pulmonale, CK D stage I II B (baseline creatinine 1.7-[address] 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 SUBJECTIVE: Patient reports feeling well without complaints. Blood pressure seems to be a bit improved today without the hypotension. No chest pain, SOSA. No cough on recumbency. Had no orthopnea or PND. No Abdominal pain, N/V or fever. No dizziness or lightheadedness. Scheduled Medications: allopurinol 200 mg Oral Daily ascorbic acid 1,000 mg Oral Daily aspirin 162 mg Oral Daily with breakfast atorvastatin 40 mg Oral Nightly cholecalciferol 1,000 Units Oral Daily ferrous sulfate (65 FE) 65 mg of iron Oral TID WC heparin (porcine) 5000 unit/0.5mL 5,000 Units Subcutaneous 2 times per day metoprolol 12.5 mg Oral BID PARoxetine 20 mg Oral QAM sodium chloride (PF) 10 mL Intravenous Q8H Continuous Infusions sodium chloride (IV) 75 mL/hr at 01/01/196 PRN Medications acetaminophen OR acetaminophen, ammonium lactate, hydrALAZINE, HYDROcodone-acetaminophe n, nitroGLYCERIN, ondansetron OR ondansetron, polyethylene glycol, pramipexole Allergy: Allergies Allergen Reactions Vitamin K And Related Shortness of Breath Lisinopril Rash Warfarin Itching and Rash OBJECTIVE: Vitals: Patient Vitals for the past 24 hrs: BP Temp Temp src Pulse Resp SpO2 01/02/19 0750 139/70 97.7 F (36.5 C) Oral 86 18 98 % 01/02/19 0455 127/75 97.4 F (36.3 C) Oral 95 20 96 % 01/01/19 2334 114/65 97.5 F (36.4 C) Oral 88 20 96 % 01/01/19 2115 93/52 - - 82 - - 01/01/192013 98/60 - - 84 - - 01/01/19 1918 131/72 97.5 F (36.4 C) Oral 96 20 97 % 01/01/19 1549 124/69 98 F (36.7 C) Oral 76 20 100 % 01/01/19 1200 114/63 - - 77 - - 01/01/19 1147 109/55 97.6 F (36.4 C) Oral 94 20 97 % 01/01/19 1100 97/58 - - 76 - - 01/01/19 1045 113/58 - - 84 - - 01/01/19 1037 (!) 78/53 - - 82 - - 01/01/19 1001 (!) 76/47 - - 80 - - I&O Detailed Table: Intake/Output Summary (Last 24 hours) at 01/02/19 0959 Last data filed at 01/02/19 0750 Gross per 24 hour Intake 589 ml Output 1900 ml Net -1311 ml No data found. Hemodynamics Last 24hrs: Physical Examination: Constitutional: Alert and oriented to person, place, and time. Appears well-developed and w ell-nourished. NAD calm, no respiratory distress. Awake alert and conversant seems comforta ble presently without complaints HEENT: Neck supple, no JVD, non icteric sclera. Cardiovascular: Normal rate, regular rhythm, normal heart sounds, and intact distal pulses. Exam reveals no appreciated gallop or friction rub. No murmur heard. Pulmonary/Chest: Effort normal and breath sounds normal. No stridor. No respiratory distres s. no wheezes. no rales. exhibits no tenderness. Abdominal: Soft. Bowel sounds are normal. exhibits no distension. There is no tenderness. T here is no rebound and no guarding. Extremeties/Musculoskeletal: Normal general range of motion. unaboot on capillary refill le ss than 2 seconds bilaterally. Neurological: Alert and oriented to person, place, and time. Has normal reflexes. No olvin s cranial nerve or focal deficit. Exhibits normal muscle tone. Coordination normal. Skin: Skin is warm and dry. No rash noted. No erythema. No pallor. Of visible skin Psychiatric: Has a normal mood and affect given situation. Behavior is normal. Judgment nor mal for patient. LABS: Recent Labs Lab 01/02/19 0552 01/01/19 0542 12/31/18 05 WBC 8.72 9.46 9.69 HGB 11.9* 12.2* 12.7* HCT 37.0* 37.3* 38.7* PLT 211 220 220 NEUTOPHILPCT 73.05 73.95 74.32 MONOPCT 8.21 6.69 7.35 Recent Labs Lab 01/02/19 0552 01/01/19 0542 12/31/1852012/27/18516 NA 139 138 139 < > 142 K 3.5 3.4* 3.6 < > 4.6 CL 97* 93* 96* < > 110* CO2 30 33* 33* < > 21* BUN 86* 84* 77* < > 44* CREATININE 2.9* 3.3* 3.0* < > 1.9* PROT -- -- -- -- 6.4 BILITOT -- -- -- -- 0.5 ALT -- -- -- -- 14 AST -- -- -- -- 12 < > = values in this interval not displayed. Phosphorus: Lab Results Component Value Date PHOS 4.2 01/02/2019 Invalid input(s): LABALBU Recent Labs Lab 01/02/19 0501/01/1942 12/31/18520 MG 2.3 2.3 2.5* No results for input(s): AMYLASE in the last 168 hours. No results for input(s): PHART, PO2ART, JEW7JRQ, R2JMOHTA, BEART in the last 168 hours. No results for input(s): APTT, INR, PTT in the last 168 hours. Recent Labs Lab 12/27/18 05 TSH 1.500 Recent Labs Lab 12/27/18 0751 12/27/18516 TROPONINI 0.046* 0.048* Results No results found for the last 72 hours. RADIOLOGY: Ks Myocardial Perfusion Spect (stress And Rest) Result Date: 12/28/2018 1. Mild heterogeneity of uptake on both rest and stress images probably related to patient body habitus/artifact. No definite evidence of ischemia or infarct. See above. 2. Normal L V wall motion. 3. LVEF 49% rest, 62% stress. Low risk stratification. Signed by: Kaleb Gray Sign Date/Time: 12/28/2018 1:56 PM Echo Cardiac Adult Complete Result Date: 12/27/2018 1. This was a technically difficult study with suboptimal views. 2. Adequate EF 3. Severe b i-atrial enlargement. PROBLEM LIST Principal Problem: SOB (shortness of breath) Active Problems: CKD (chronic kidney disease) stage 3, GFR 30-59 ml/min (HCC) Essential hypertension, benign Bilateral lower extremity edema Chronic atrial fibrillation (HCC) Cardiac pacemaker in situ Pulmonary hypertension (HCC) Right heart failure (HCC) Chronic systolic heart failure ([facility]) ASSESSMENT & PLAN 1. Acute respiratory distress : As per prior Hospitalist's note: -Resolving. -Multifactorial: Acute on chronic heart failure with preserved ejection fraction exacerbati on, obstructive sleep apnea with noncompliance with home CPAP, Severe pulmonary hypertension complicated by cor pulmonale, and morbid obesity. Possible anginal equivalent. -Likely etiology secondary to increased po fluid intake. Patient notes adherence to po med ication and salt restriction. -Hemodynamically stable. -Electrolytes reviewed. Target potassium greater than 4 and target magnesium greater than 2. -2-D echocardiogram 12/27 demonstrates EF 60-65 percent, mild concentric left ventricula r hypertrophy with mildly impaired right ventricular systolic function. CVP 15 mmHg. -Home diuretic therapy: Torsemide 40 mg po bid and metolazone 10 mg. -We increased diuretic therapy to torsemide 50 mg po bid and continue with metolazone 10 mg -initiated on 12/26. -Strict I's and O's. Target net negative 2 L. -Daily weights, kindly, use standing weight. -Fluid and salt restriction. -Supportive care. CPAP qhs -We will order nuclear medicine stress test, ordered when the patient was admitted secondar y to patient's inability to lay flat. 12/29/18: Clinically seems to be improving, creatinine climbing presently Slightly decrea se torsemide to prior 40mg bid dose and c/w remaining meds and follow 12/30/18: Patient reports breathing currently stable and markedly improved from earlier this admission. Continue with current regimen for now, follow, and adjust as needed based on progress. 12/31/18: Continue with current regimen for now, follow, and adjust as needed based on prog ress. 01/01/19: Seems to be doing well presently continue with current option supplementation pro mote pulmonary toilet as possible. 01/02/19: Clinically seems improved from earlier on tolerating the gentle hydration at prese nt. Continue with current management and follow 2. CKD stage III B presently with an element of acute renal failure: As per prior Hospitalist's note: -Baseline creatinine 1.7-2 -Avoid nephrotoxic agents -Renally dose medications -Management per point #1. 12/29/18: creatinine increasing some,. See above 12/30/18: Patient's creatinine and BUN increased today I do suspect prerenal azotemia in the setting of diuresis. Patient currently seems symptomatically improved in response to the di uresis but he might be a bit dry at present. Will hold his diuretics today resume tomorrow b ut depending up on his labs tomorrow. Promote renal hygiene as possible. I will also liberal ize the fluid restriction from 1500 cc to 2 L. 12/31/18: Renal function worsened some today. Seems ongoingly volume depleted. will give ivf and follow progress. Stopped acei and diuretics and other bp meds now as well. If renal function worse tomorrow consider nephrology involvement. 01/01/19: Renal function a bit worse today. Suspect there could always be an element of ATN with dehydration that the patient they have had in the setting of needed diuresis. Discusse d with nephrology and they will see the patient. Decreased his metoprolol dose today told fl ail allow for some of it to be given as it would want to avoid any uncontrolled tachycardia to percent. Placed on a low-dose of IV fluids await recommendations from nephrology. 01/02/19: Given the recovery was not as immediate as preventive hoped when hydration started and diuretics being stopped as well as holding some other medications suspect there may of been an element of ATN at play. Currently renal function seems to be starting to turn around . Continue gentle hydration have not added back INDIO inhibitor or diuretics at present as wel l need to be decided later unless recommended by nephrology. Recent Labs Lab 01/02/19 0552 01/01/19 0542 12/31/18 0521 NA 139 138 139 K 3.5 3.4* 3.6 CL 97* 93* 96* CO2 30 33* 33* BUN 86* 84* 77* CREATININE 2.9* 3.3* 3.0* EGFR 21* 18* 20* PHOS 4.2 4.0 4.6 3. Normocytic anemia: As per prior Hospitalist's note: -Ferritin 33 and TIBC 287 labs obtained on 12/27 -Likely etiology is possible anemia of chronic disease with superimposed iron deficiency an emia. -We will order ferrous sulfate tid -No indication for transfusion at this time. 12/29/18: Increasing h/h presently. 12/30/18: as below. Continue with current regimen and follow. 12/31/18: Improving as below 01/01/19: Stable as below continue to follow. 01/02/19: Presently stable minimal decreased from yesterday suspect related to hydration. Co ntinue to follow Recent Labs Lab 01/02/19 0552 01/01/19 0542 12/31/18 0521 WBC 8.72 9.46 9.69 HGB 11.9* 12.2* 12.7* HCT 37.0* 37.3* 38.7* PLT 211 220 220 4. Chronic atrial fibrillation status post watchman's procedure: As per prior Hospitalist's note: -Target heart rate at rest persistently less than 110 bpm. -Decrease home rate control medication: Metoprolol 50 mg po bid to 25 mg po bid to allow fo r physiologic response. -No anticoagulation secondary to history of GI bleed. 12/29/18: As above 12/30/18: Continue with current regimen for now, follow, and adjust as needed based on progr ess. 12/31/18: Continue with current regimen for now, follow, and adjust as needed based on prog ress. 01/01/19: Continue current regimen for now the exception of decreasing the dose of metoprol ol so he can get it and hopefully tolerate with respect to his blood pressure tension increa sed back to his prior dose of possible second. 01/02/19: Will increase the dose of Lopressor again to his prior dose of 25 mg po bid in the setting of appropriate blood pressure should feel a tolerate this I would think. 5. Hypertension: As per prior Hospitalist's note: Resume home blood pressure medication: Losartan 100 mg q daily and amlodipine 10 mg q daily . -Hydralazine prn for decreased afterload reduction. 12/29/18: Continue with current regimen for now, follow, and adjust as needed based on pro marino. 12/30/18: Pressure currently controlled as below. No change today.Continue with current jennifer men for now, follow, and adjust as needed based on progress. 12/31/18: Currently hypotensive see below. 01/02/19: Patient's blood pressure does seem to be coming up some. Seems appropriate to add back the full dose of metoprolol that he was on before and see if he tolerates it. Have not added back any antihypertensives yet but suspect in the near future this may be needed. Awai t any potential recommendations from nephrology. Vitals: 01/01/19 2115 01/01/19 2334 01/02/19 0455 01/02/19 0750 BP: 93/52 114/65 127/75 139/70 BP Location: Left upper arm Left upper arm Right upper arm Pulse: 82 88 95 86 Resp: 18 Temp: 97.5 F (36.4 C) 97.4 F (36.3 C) 97.7 F (36.5 C) TempSrc: Oral Oral Oral SpO2: 96% 96% 98% Height: HYPOTENSION: Assessment: Doubt sepsis as no clear suggestion of infection at present. Suspect volume r elated as recently diuresed and also on antihypertensives. Yesterday I stopped diuretics an d today he is hypotensive with worsened renal fucntion as well. I stopped his BP meds and g ave 500cc saline boluses x 2. Seems improved presently but will have ot follow his volume s tatus and decide about further med mgt based on his progress. 01/01/19: Hypotensive again this morning then became up some patient on low-dose IV fluids for now to follow on this as we want to avoid overhydration in the setting of need for diure sis before await recommendations from nephrology. 01/02/19: Hypotension seems improved please see hypertension above: Hypomagnesemia: 12/29/18: Continue with current regimen for now, follow, and adjust as needed based on pro marino. 12/30/18: Continue to follow and replace as needed. 12/31/18: Follow and replace prn. 01/02/19: Follow replace as needed Recent Labs Lab 01/02/19 0552 01/01/19 0542 12/31/18 0521 MG 2.3 2.3 2.5* As per prior Hospitalist's note: Deep vein thrombosis prophylaxis: Heparin bid secondary to history of GI bleed and presentl y on aspirin therapy. Disposition: 01/02/19: Depending up on patient's progress if he continues to improve tomorrow with improv ing renal function stable blood pressure and no other acute problems of present there is a w as the possibility and the next day or so he may be able to discharge to his rehab facility. When he does go follow-up and management of his blood pressure with addition or titration o r adjustment of medications may be needed after discharge. SHAR DAWSON MD 01/02/2019 9:59 AM Greater than 35 minutes spent today overall in coordination of care, seeing and managing pa tient, review of data, coordination with staff, coordination with involved consultants, and including any scheduled multidisciplinary rounding focused on the patient with 50 percent or more spent seeing and managing patient and counseling/coordination. Dictation software, [employer], used which may contain error for similar sounding words even af ter review. Personal communication requested for any clarification. Portions of this chart may have been copied from previous notes for continuity of care purp ose onversion Transac tion, Provider Unknown - 01/02/2019 5:13 AM PDTFormatting of this note might be different f rom the original. Nurse Progress Note by Angie Bowen RN at 01/02/19512 Author: Angie Bowen RN Service: (none) Author Type: Registered Nurse Filed: 01/02/1914 Date of Service: 01/02/19512 Status: Signed Public Welfare Director: Angie Bowen RN (Registered Nurse) Pt A&Ox4, VSS, PO metoprolol held as BP was below 100. New IV inserted in left FA. No acu te changes from previous shift. Chart check complete. Angie Bowen RN onver sarah Transaction, Provider Unknown - 01/01/2019 5:51 PM PDT Nurse Progress Note by Radha Chirinos RN at 01/01/191750 Author: Radha Chirinos RN Service: (none) Author Type: Registered Nurse Filed: 01/01/191750 Date of Service: 01/01/191750 Status: Signed Public Welfare Director: Radha Chirinos RN (Registered Nurse) 12 hour chart check complete. No acute changes this shift onver sarah Transaction, Provider Unknown - 01/01/2019 10:36 AM PDT Case Management by Lyle Vences RN at 01/01/191035 Author: Lyle Vences RN Service: (none) Author Type: Registered Nurse Filed: 01/01/19 1037 Date of Service: 01/01/191035 Status: Signed Public Welfare Director: Lyle Vences RN (Registered Nurse) 10:37 AM Called and updated [place] admissions that Michael would not be ready for DC today. har Solorzano MD - 01/01/2019 9:41 AM PDT Progress Notes by Shar Dawson MD at 01/01/19940 Author: Shar Dawson MD Service: Hospitalist Author Type: Physician Filed: 01/01/194 Date of Service: 01/01/19940 Status: Signed Public Welfare Director: Shar Dawson MD (Physician) [facility] Service: Hospitalist Progress Note Pt: Michael Joshi AGE/SEX: 78 y.o. male ROOM: 7114/7114-1 : 1940 PCP: AMEE URRUTIA ADMIT DATE: 12/27/2018 TODAY'S DATE: 01/01/2019 Hospital Day: LOS: 4 days Post-Op Day: * No surgery found * Hospital Day/Hospital Course: LOS: 4 days As per prior Hospitalist's note: Briefly, 78-year-old male with extensive past medical history most significant for hyperten sarah, hyperlipidemia, morbid obesity, obstructive sleep apnea noncompliant with home CPAP on home oxygen prn, severe pulmonary hypertension complicated with cor pulmonale, CK D stage I II B (baseline creatinine 1.7-[address] 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 SUBJECTIVE: Patient seen and examined. Patient without any complaints. Did have some low blood pressure s again today down into the 70s systolic. No chest pain, SOSA. No cough on recumbency. Had no orthopnea or PND. No Abdominal pain, N/V or fever. No dizziness or lightheadedness. Scheduled Medications: allopurinol 200 mg Oral Daily ascorbic acid 1,000 mg Oral Daily aspirin 162 mg Oral Daily with breakfast atorvastatin 40 mg Oral Nightly cholecalciferol 1,000 Units Oral Daily ferrous sulfate (65 FE) 65 mg of iron Oral TID WC heparin (porcine) 5000 unit/0.5mL 5,000 Units Subcutaneous 2 times per day metoprolol 25 mg Oral BID PARoxetine 20 mg Oral QAM sodium chloride (PF) 10 mL Intravenous Q8H Continuous Infusions sodium chloride (IV) PRN Medications acetaminophen OR acetaminophen, ammonium lactate, hydrALAZINE, HYDROcodone-acetaminophe n, nitroGLYCERIN, ondansetron OR ondansetron, polyethylene glycol, pramipexole Allergy: Allergies Allergen Reactions Vitamin K And Related Shortness of Breath Lisinopril Rash Warfarin Itching and Rash OBJECTIVE: Vitals: Patient Vitals for the past 24 hrs: BP Temp Temp src Pulse Resp SpO2 01/01/19 0500 142/71 - - 89 - - 01/01/19 0405 121/70 98.4 F (36.9 C) Oral 76 20 93 % 01/01/19 0400 119/67 - - 73 - - 01/01/19 0330 - - - 79 - - 01/01/19 0300 103/71 - - 76 - - 01/01/19 0200 97/54 - - 76 - - 01/01/19 0130 - - - 77 - - 01/01/19 0100 105/61 - - 72 - - 01/01/19 0000 109/64 - - 73 - - 12/31/18 2330 98/67 - - 75 - - 12/31/18 2300 103/57 - - 80 - - 12/31/18 2250 92/56 97.5 F (36.4 C) Oral 82 - 96 % 12/31/18 2246 (!) 84/52 - - - - - 12/31/18 2240 (!) 80/52 - - - - - 12/31/18 2228 (!) 87/55 98.2 F (36.8 C) Oral 75 20 96 % 12/31/18 2200 97/59 - - 76 - 95 % 12/31/18 2136 91/56 - - 80 - - 12/31/18 2100 (!) 88/54 - - 79 - 93 % 12/31/18 2009 96/53 98.1 F (36.7 C) Oral 88 20 96 % 12/31/18 2000 111/66 - - 80 - 96 % 12/31/18 1900 116/81 - - 77 - 94 % 12/31/18 1700 97/54 - - 76 - 97 % 12/31/18 1600 102/60 - - 73 - 97 % 12/31/18 1500 118/71 98 F (36.7 C) Oral 73 18 98 % 12/31/18 1400 99/57 - - 66 - 97 % 12/31/18 1300 94/58 - - 71 - 97 % 12/31/18 1230 (!) 84/53 - - 67 - 97 % 12/31/18 1215 (!) 74/49 - - 71 - 96 % 12/31/18 1209 (!) 73/48 - - 70 - 95 % 12/31/18 1207 (!) 70/44 - - 72 - 96 % 12/31/18 1154 (!) 75/52 97.4 F (36.3 C) Oral 76 20 96 % 12/31/18 1110 96/60 - - 75 - - 12/31/18 1105 (!) 71/42 - - 83 - - 12/31/18 1050 (!) 83/50 - - 78 - - 12/31/18 1040 (!) 83/52 - - 78 - - 12/31/18 1035 (!) 84/51 - - 71 - - I&O Detailed Table: Intake/Output Summary (Last 24 hours) at 01/01/19 0942 Last data filed at 01/01/19 0600 Gross per 24 hour Intake 1640 ml Output 1375 ml Net 265 ml No data found. Hemodynamics Last 24hrs: Physical Examination: Constitutional: Alert and oriented to person, place, and time. Appears well-developed and w ell-nourished. NAD seems comfortable and calm, no respiratory distress. Awake alert and con versant HEENT: Neck supple, no JVD, non icteric sclera. Cardiovascular: Normal rate, regular rhythm, normal heart sounds, and intact distal pulses. Exam reveals no appreciated gallop or friction rub. No murmur heard. Pulmonary/Chest: Effort normal and breath sounds normal. No stridor. No respiratory distres s. no wheezes. no rales. exhibits no tenderness. Abdominal: Soft. Bowel sounds are normal. exhibits no distension. There is no tenderness. T here is no rebound and no guarding. Extremeties/Musculoskeletal: Normal general range of motion. unaboot on . Neurological: Alert and oriented to person, place, and time. Has normal reflexes. No olvin s cranial nerve or focal deficit. Exhibits normal muscle tone. Coordination normal. Skin: Skin is warm and dry. No rash noted. No erythema. No pallor. Of visible skin Psychiatric: Has a normal mood and affect given situation. Behavior is normal. Judgment nor mal for patient. LABS: Recent Labs Lab 01/01/1954112/31/1852012/30/18527 WBC 9.46 9.69 9.71 HGB 12.2* 12.7* 12.5* HCT 37.3* 38.7* 38.0* PLT 220 220 210 NEUTOPHILPCT 73.95 74.32 77.17 MONOPCT 6.69 7.35 8.10 Recent Labs Lab 01/01/1942 12/31/1821 12/30/1828 12/27/18 0517 NA 138 139 139 < > 142 K 3.4* 3.6 3.3* < > 4.6 CL 93* 96* 94* < > 110* CO2 33* 33* 34* < > 21* BUN 84* 77* 65* < > 44* CREATININE 3.3* 3.0* 2.7* < > 1.9* PROT -- -- -- -- 6.4 BILITOT -- -- -- -- 0.5 ALT -- -- -- -- 14 AST -- -- -- -- 12 < > = values in this interval not displayed. Phosphorus: Lab Results Component Value Date PHOS 4.0 01/01/2019 Invalid input(s): LABALBU Recent Labs Lab 01/01/19 0542 12/31/18 0521 12/30/18 0528 MG 2.3 2.5* 1.9 No results for input(s): AMYLASE in the last 168 hours. No results for input(s): PHART, PO2ART, CPT2RYA, V9LPXCKZ, BEART in the last 168 hours. No results for input(s): APTT, INR, PTT in the last 168 hours. Recent Labs Lab 12/27/18 0517 TSH 1.500 Recent Labs Lab 12/27/18 0751 12/27/18 0517 TROPONINI 0.046* 0.048* Results No results found for the last 72 hours. RADIOLOGY: Ks Myocardial Perfusion Spect (stress And Rest) Result Date: 12/28/2018 1. Mild heterogeneity of uptake on both rest and stress images probably related to patient body habitus/artifact. No definite evidence of ischemia or infarct. See above. 2. Normal L V wall motion. 3. LVEF 49% rest, 62% stress. Low risk stratification. Signed by: Kaleb Gray Sign Date/Time: 12/28/2018 1:56 PM Echo Cardiac Adult Complete Result Date: 12/27/2018 1. This was a technically difficult study with suboptimal views. 2. Adequate EF 3. Severe b i-atrial enlargement. PROBLEM LIST Principal Problem: SOB (shortness of breath) Active Problems: CKD (chronic kidney disease) stage 3, GFR 30-59 ml/min (HCC) Essential hypertension, benign Bilateral lower extremity edema Chronic atrial fibrillation (HCC) Cardiac pacemaker in situ Pulmonary hypertension (HCC) Right heart failure (HCC) Chronic systolic heart failure (HCC) ASSESSMENT & PLAN 1. Acute respiratory distress : As per prior Hospitalist's note: -Resolving. -Multifactorial: Acute on chronic heart failure with preserved ejection fraction exacerbati on, obstructive sleep apnea with noncompliance with home CPAP, Severe pulmonary hypertension complicated by cor pulmonale, and morbid obesity. Possible anginal equivalent. -Likely etiology secondary to increased po fluid intake. Patient notes adherence to po med ication and salt restriction. -Hemodynamically stable. -Electrolytes reviewed. Target potassium greater than 4 and target magnesium greater than 2. -2-D echocardiogram 12/27 demonstrates EF 60-65 percent, mild concentric left ventricula r hypertrophy with mildly impaired right ventricular systolic function. CVP 15 mmHg. -Home diuretic therapy: Torsemide 40 mg po bid and metolazone 10 mg. -We increased diuretic therapy to torsemide 50 mg po bid and continue with metolazone 10 mg -initiated on 12/26. -Strict I's and O's. Target net negative 2 L. -Daily weights, kindly, use standing weight. -Fluid and salt restriction. -Supportive care. CPAP qhs -We will order nuclear medicine stress test, ordered when the patient was admitted secondar y to patient's inability to lay flat. 12/29/18: Clinically seems to be improving, creatinine climbing presently Slightly decrea se torsemide to prior 40mg bid dose and c/w remaining meds and follow 12/30/18: Patient reports breathing currently stable and markedly improved from earlier this admission. Continue with current regimen for now, follow, and adjust as needed based on progress. 12/31/18: Continue with current regimen for now, follow, and adjust as needed based on prog ress. 01/01/19: Seems to be doing well presently continue with current option supplementation pro mote pulmonary toilet as possible. 2. CKD stage III B presently with an element of acute renal failure: As per prior Hospitalist's note: -Baseline creatinine 1.7-2 -Avoid nephrotoxic agents -Renally dose medications -Management per point #1. 12/29/18: creatinine increasing some,. See above 12/30/18: Patient's creatinine and BUN increased today I do suspect prerenal azotemia in the setting of diuresis. Patient currently seems symptomatically improved in response to the di uresis but he might be a bit dry at present. Will hold his diuretics today resume tomorrow b ut depending up on his labs tomorrow. Promote renal hygiene as possible. I will also liberal ize the fluid restriction from 1500 cc to 2 L. 12/31/18: Renal function worsened some today. Seems ongoingly volume depleted. will give ivf and follow progress. Stopped acei and diuretics and other bp meds now as well. If renal function worse tomorrow consider nephrology involvement. 01/01/19: Renal function a bit worse today. Suspect there could always be an element of ATN with dehydration that the patient they have had in the setting of needed diuresis. Discusse d with nephrology and they will see the patient. Decreased his metoprolol dose today told fl ail allow for some of it to be given as it would want to avoid any uncontrolled tachycardia to percent. Placed on a low-dose of IV fluids await recommendations from nephrology. Recent Labs Lab 01/01/1954112/31/1852012/30/18 0528 NA 138 139 139 K 3.4* 3.6 3.3* CL 93* 96* 94* CO2 33* 33* 34* BUN 84* 77* 65* CREATININE 3.3* 3.0* 2.7* EGFR 18* 20* 23* PHOS 4.0 4.6 3.8 3. Normocytic anemia: As per prior Hospitalist's note: -Ferritin 33 and TIBC 287 labs obtained on 12/27 -Likely etiology is possible anemia of chronic disease with superimposed iron deficiency an emia. -We will order ferrous sulfate tid -No indication for transfusion at this time. 12/29/18: Increasing h/h presently. 12/30/18: as below. Continue with current regimen and follow. 12/31/18: Improving as below 01/01/19: Stable as below continue to follow. Recent Labs Lab 01/01/19 0542 12/31/18 0521 12/30/18 0528 WBC 9.46 9.69 9.71 HGB 12.2* 12.7* 12.5* HCT 37.3* 38.7* 38.0* PLT 220 220 210 4. Chronic atrial fibrillation status post watchman's procedure: As per prior Hospitalist's note: -Target heart rate at rest persistently less than 110 bpm. -Decrease home rate control medication: Metoprolol 50 mg po bid to 25 mg po bid to allow fo r physiologic response. -No anticoagulation secondary to history of GI bleed. 12/29/18: As above 12/30/18: Continue with current regimen for now, follow, and adjust as needed based on progr ess. 12/31/18: Continue with current regimen for now, follow, and adjust as needed based on prog ress. 01/01/19: Continue current regimen for now the exception of decreasing the dose of metoprol ol so he can get it and hopefully tolerate with respect to his blood pressure tension increa sed back to his prior dose of possible second. 5. Hypertension: As per prior Hospitalist's note: Resume home blood pressure medication: Losartan 100 mg q daily and amlodipine 10 mg q daily . -Hydralazine prn for decreased afterload reduction. 12/29/18: Continue with current regimen for now, follow, and adjust as needed based on pro marino. 12/30/18: Pressure currently controlled as below. No change today.Continue with current jennifer men for now, follow, and adjust as needed based on progress. 12/31/18: Currently hypotensive see below. Vitals: 01/01/19 0330 01/01/19 0400 01/01/19 0405 01/01/19 0500 BP: 119/67 121/70 142/71 BP Location: Left upper arm Pulse: 79 73 76 89 Resp: 20 Temp: 98.4 F (36.9 C) TempSrc: Oral SpO2: 93% Height: HYPOTENSION: Assessment: Doubt sepsis as no clear suggestion of infection at present. Suspect volume r elated as recently diuresed and also on antihypertensives. Yesterday I stopped diuretics an d today he is hypotensive with worsened renal fucntion as well. I stopped his BP meds and g ave 500cc saline boluses x 2. Seems improved presently but will have ot follow his volume s tatus and decide about further med mgt based on his progress. 01/01/19: Hypotensive again this morning then became up some patient on low-dose IV fluids for now to follow on this as we want to avoid overhydration in the setting of need for diure sis before await recommendations from nephrology. Hypomagnesemia: 12/29/18: Continue with current regimen for now, follow, and adjust as needed based on pro marino. 12/30/18: Continue to follow and replace as needed. 12/31/18: Follow and replace prn. Recent Labs Lab 01/01/19 0542 12/31/18 0521 12/30/18 0528 MG 2.3 2.5* 1.9 As per prior Hospitalist's note: Deep vein thrombosis prophylaxis: Heparin bid secondary to history of GI bleed and presentl y on aspirin therapy. SHAR DAWSON MD 01/01/2019 9:42 AM Greater than 35 minutes spent today overall in coordination of care, seeing and managing pa tient, review of data, coordination with staff, coordination with involved consultants, and including any scheduled multidisciplinary rounding focused on the patient with 50 percent or more spent seeing and managing patient and counseling/coordination. Dictation software, [employer], used which may contain error for similar sounding words even af ter review. Personal communication requested for any clarification. Portions of this chart may have been copied from previous notes for continuity of care purp ose onversion Transac tion, Provider Unknown - 01/01/2019 6:17 AM PDTFormatting of this note might be different f rom the original. Nurse Progress Note by Lisha Cruz RN at 01/01/19616 Author: Lisha Cruz RN Service: (none) Author Type: Registered Nurse Filed: 01/01/19619 Date of Service: 01/01/19616 Status: Signed Public Welfare Director: Lisha Cruz RN (Registered Nurse) Low blood pressures this shift. Lowest 80/52. Patient asymptomatic. Metoprolol held this sh ift. Orthostatic BP's ordered by MD and performed. See previous progress note. Low BP resolv ed. Most recent pressure 142/71. Otherwise uneventful shift. 1075 ml urine output this shift so far. End of shift review complete. Lisha Cruz RN onver sarah Transaction, Provider Unknown - 12/31/2018 10:49 PM PDT Nurse Progress Note by Lisha Cruz RN at 12/31/182248 Author: Lisha Cruz RN Service: (none) Author Type: Registered Nurse Filed: 12/31/182249 Date of Service: 12/31/182248 Status: Signed Public Welfare Director: Lisha Cruz RN (Registered Nurse) Orthostatic bps Layin 87/55 Sittin 80/52 Standing 2246: 84/52 har Solorzano MD - 12/31/2018 7:59 PM PDT Progress Notes by Shar Dawson MD at 12/31/181958 Author: Shar Dawson MD Service: Hospitalist Author Type: Physician Filed: 12/31/182220 Date of Service: 12/31/181958 Status: Signed Public Welfare Director: Shar Dawson MD (Physician) [facility] Service: Hospitalist Progress Note Pt: Michael Huttonjairon AGE/SEX: 78 y.o. male ROOM: [facility]7114-1 : 1940 PCP: AMEE URRUTIA ADMIT DATE: 12/27/2018 TODAY'S DATE: 12/31/2018 Hospital Day: LOS: 3 days Post-Op Day: * No surgery found * Hospital Day/Hospital Course: LOS: 3 days As per prior Hospitalist's note: Briefly, 78-year-old male with extensive past medical history most significant for hyperten sarah, hyperlipidemia, morbid obesity, obstructive sleep apnea noncompliant with home CPAP on home oxygen prn, severe pulmonary hypertension complicated with cor pulmonale, CK D stage I II B (baseline creatinine 1.7-[address] 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 SUBJECTIVE: Patient seen and examined. Pt reports feeling reasonably well. He did have hypotension tod ay and increase bun/creatinine. No chest pain, SOSA. No cough on recumbency. Had no orthopnea or PND. No Abdominal pain, N/V or fever. No dizziness or lightheadedness. Scheduled Medications: allopurinol 200 mg Oral Daily ascorbic acid 1,000 mg Oral Daily aspirin 162 mg Oral Daily with breakfast atorvastatin 40 mg Oral Nightly cholecalciferol 1,000 Units Oral Daily ferrous sulfate (65 FE) 65 mg of iron Oral TID WC heparin (porcine) 5000 unit/0.5mL 5,000 Units Subcutaneous 2 times per day metoprolol 25 mg Oral BID PARoxetine 20 mg Oral QAM sodium chloride (PF) 10 mL Intravenous Q8H Continuous Infusions PRN Medications acetaminophen OR acetaminophen, ammonium lactate, hydrALAZINE, HYDROcodone-acetaminophe n, nitroGLYCERIN, ondansetron OR ondansetron, polyethylene glycol, pramipexole Allergy: Allergies Allergen Reactions Vitamin K And Related Shortness of Breath Lisinopril Rash Warfarin Itching and Rash OBJECTIVE: Vitals: Patient Vitals for the past 24 hrs: BP Temp Temp src Pulse Resp SpO2 12/31/18 1700 97/54 - - 76 - 97 % 12/31/18 1600 102/60 - - 73 - 97 % 12/31/18 1500 118/71 98 F (36.7 C) Oral 73 18 98 % 12/31/18 1400 99/57 - - 66 - 97 % 12/31/18 1300 94/58 - - 71 - 97 % 12/31/18 1230 (!) 84/53 - - 67 - 97 % 12/31/18 1215 (!) 74/49 - - 71 - 96 % 12/31/18 1209 (!) 73/48 - - 70 - 95 % 12/31/18 1207 (!) 70/44 - - 72 - 96 % 12/31/18 1154 (!) 75/52 97.4 F (36.3 C) Oral 76 20 96 % 12/31/18 1110 96/60 - - 75 - - 12/31/18 1105 (!) 71/42 - - 83 - - 12/31/18 1050 (!) 83/50 - - 78 - - 12/31/18 1040 (!) 83/52 - - 78 - - 12/31/18 1035 (!) 84/51 - - 71 - - 12/31/18 0827 144/87 - - - - - 12/31/18 0821 (!) 122/92 97.5 F (36.4 C) Oral 80 20 98 % 12/31/18 0530 119/71 - - - - - 12/31/18 0353 111/70 97.8 F (36.6 C) Oral 94 20 97 % 12/30/18 2346 107/66 97.9 F (36.6 C) Oral 81 20 97 % 12/30/18 2103 96/53 - - - - - 12/30/182024 102/68 97.6 F (36.4 C) Axillary 73 16 96 % I&O Detailed Table: Intake/Output Summary (Last 24 hours) at 12/31/181958 Last data filed at 12/31/18 182 Gross per 24 hour Intake 1650 ml Output 1995 ml Net -345 ml No data found. Hemodynamics Last 24hrs: Physical Examination: Constitutional: Alert and oriented to person, place, and time. Appears well-developed and w ell-nourished. NAD seems comfortable and calm, no respiratory distress. HEENT: Neck supple, no JVD, non icteric sclera. Cardiovascular: Normal rate, regular rhythm, normal heart sounds, and intact distal pulses. Exam reveals no appreciated gallop or friction rub. No murmur heard. Pulmonary/Chest: Effort normal and breath sounds normal. No stridor. No respiratory distres s. no wheezes. no rales. exhibits no tenderness. Abdominal: Soft. Bowel sounds are normal. exhibits no distension. There is no tenderness. T here is no rebound and no guarding. Extremeties/Musculoskeletal: Normal general range of motion. unaboot back on today. Neurological: Alert and oriented to person, place, and time. Has normal reflexes. No olvin s cranial nerve or focal deficit. Exhibits normal muscle tone. Coordination normal. Skin: Skin is warm and dry. No rash noted. No erythema. No pallor. Of visible skin Psychiatric: Has a normal mood and affect given situation. Behavior is normal. Judgment nor mal for patient. LABS: Recent Labs Lab 12/31/1852012/30/18 0512/29/18 0555 WBC 9.69 9.71 10.15 HGB 12.7* 12.5* 12.0* HCT 38.7* 38.0* 36.8* PLT 220 210 197 NEUTOPHILPCT 74.32 77.17 80.14 MONOPCT 7.35 8.10 6.85 Recent Labs Lab 12/31/1852012/30/1852712/29/18 0555 12/27/18 0517 NA 139 139 140 < > 142 K 3.6 3.3* 3.6 < > 4.6 CL 96* 94* 98* < > 110* CO2 33* 34* 31 < > 21* BUN 77* 65* 48* < > 44* CREATININE 3.0* 2.7* 2.2* < > 1.9* PROT -- -- -- -- 6.4 BILITOT -- -- -- -- 0.5 ALT -- -- -- -- 14 AST -- -- -- -- 12 < > = values in this interval not displayed. Phosphorus: Lab Results Component Value Date PHOS 4.6 12/31/2018 Invalid input(s): LABALBU Recent Labs Lab 12/31/1852012/30/1852712/29/18 05 MG 2.5* 1.9 1.9 No results for input(s): AMYLASE in the last 168 hours. No results for input(s): PHART, PO2ART, VFI2ZWZ, Q3OEGEBM, BEART in the last 168 hours. No results for input(s): APTT, INR, PTT in the last 168 hours. Recent Labs Lab 12/27/18 05 TSH 1.500 Recent Labs Lab 12/27/18 0751 12/27/18516 TROPONINI 0.046* 0.048* Results No results found for the last 72 hours. RADIOLOGY: Ks Myocardial Perfusion Spect (stress And Rest) Result Date: 12/28/2018 1. Mild heterogeneity of uptake on both rest and stress images probably related to patient body habitus/artifact. No definite evidence of ischemia or infarct. See above. 2. Normal L V wall motion. 3. LVEF 49% rest, 62% stress. Low risk stratification. Signed by: Kaleb Gray Sign Date/Time: 12/28/2018 1:56 PM Echo Cardiac Adult Complete Result Date: 12/27/2018 1. This was a technically difficult study with suboptimal views. 2. Adequate EF 3. Severe b i-atrial enlargement. PROBLEM LIST Principal Problem: SOB (shortness of breath) Active Problems: CKD (chronic kidney disease) stage 3, GFR 30-59 ml/min (HCC) Essential hypertension, benign Bilateral lower extremity edema Chronic atrial fibrillation (HCC) Cardiac pacemaker in situ Pulmonary hypertension (HCC) Right heart failure (HCC) Chronic systolic heart failure (HCC) ASSESSMENT & PLAN 1. Acute respiratory distress : As per prior Hospitalist's note: -Resolving. -Multifactorial: Acute on chronic heart failure with preserved ejection fraction exacerbati on, obstructive sleep apnea with noncompliance with home CPAP, Severe pulmonary hypertension complicated by cor pulmonale, and morbid obesity. Possible anginal equivalent. -Likely etiology secondary to increased po fluid intake. Patient notes adherence to po med ication and salt restriction. -Hemodynamically stable. -Electrolytes reviewed. Target potassium greater than 4 and target magnesium greater than 2. -2-D echocardiogram 12/27 demonstrates EF 60-65 percent, mild concentric left ventricula r hypertrophy with mildly impaired right ventricular systolic function. CVP 15 mmHg. -Home diuretic therapy: Torsemide 40 mg po bid and metolazone 10 mg. -We increased diuretic therapy to torsemide 50 mg po bid and continue with metolazone 10 mg -initiated on 12/26. -Strict I's and O's. Target net negative 2 L. -Daily weights, kindly, use standing weight. -Fluid and salt restriction. -Supportive care. CPAP qhs -We will order nuclear medicine stress test, ordered when the patient was admitted secondar y to patient's inability to lay flat. 12/29/18: Clinically seems to be improving, creatinine climbing presently Slightly decrea se torsemide to prior 40mg bid dose and c/w remaining meds and follow 12/30/18: Patient reports breathing currently stable and markedly improved from earlier this admission. Continue with current regimen for now, follow, and adjust as needed based on progress. 12/31/18: Continue with current regimen for now, follow, and adjust as needed based on prog ress. 2. CKD stage III B presently with an element of acute renal failure: As per prior Hospitalist's note: -Baseline creatinine 1.7-2 -Avoid nephrotoxic agents -Renally dose medications -Management per point #1. 12/29/18: creatinine increasing some,. See above 12/30/18: Patient's creatinine and BUN increased today I do suspect prerenal azotemia in the setting of diuresis. Patient currently seems symptomatically improved in response to the di uresis but he might be a bit dry at present. Will hold his diuretics today resume tomorrow b ut depending up on his labs tomorrow. Promote renal hygiene as possible. I will also liberal ize the fluid restriction from 1500 cc to 2 L. 12/31/18: Renal function worsened some today. Seems ongoingly volume depleted. will give ivf and follow progress. Stopped acei and diuretics and other bp meds now as well. If renal function worse tomorrow consider nephrology involvement. 3. Normocytic anemia: As per prior Hospitalist's note: -Ferritin 33 and TIBC 287 labs obtained on 12/27 -Likely etiology is possible anemia of chronic disease with superimposed iron deficiency an emia. -We will order ferrous sulfate tid -No indication for transfusion at this time. 12/29/18: Increasing h/h presently. 12/30/18: as below. Continue with current regimen and follow. 12/31/18: Improving as below Recent Labs Lab 12/31/18 0521 12/30/18 0528 12/29/18 0555 WBC 9.69 9.71 10.15 HGB 12.7* 12.5* 12.0* HCT 38.7* 38.0* 36.8* PLT 220 210 197 4. Chronic atrial fibrillation status post watchman's procedure: As per prior Hospitalist's note: -Target heart rate at rest persistently less than 110 bpm. -Decrease home rate control medication: Metoprolol 50 mg po bid to 25 mg po bid to allow fo r physiologic response. -No anticoagulation secondary to history of GI bleed. 12/29/18: As above 12/30/18: Continue with current regimen for now, follow, and adjust as needed based on progr ess. 12/31/18: Continue with current regimen for now, follow, and adjust as needed based on prog ress. 5. Hypertension: As per prior Hospitalist's note: Resume home blood pressure medication: Losartan 100 mg q daily and amlodipine 10 mg q daily . -Hydralazine prn for decreased afterload reduction. 12/29/18: Continue with current regimen for now, follow, and adjust as needed based on pro marino. 12/30/18: Pressure currently controlled as below. No change today.Continue with current jennifer men for now, follow, and adjust as needed based on progress. 12/31/18: Currently hypotensive see below. Vitals: 12/31/18 1400 12/31/18 1500 12/31/18 1600 12/31/18 1700 BP: 99/57 118/71 102/60 97/54 BP Location: Left upper arm Pulse: 66 73 73 76 Resp: 18 Temp: 98 F (36.7 C) TempSrc: Oral SpO2: 97% 98% 97% 97% Height: HYPOTENSION: Assessment: Doubt sepsis as no clear suggestion of infection at present. Suspect volume r elated as recently diuresed and also on antihypertensives. Yesterday I stopped diuretics an d today he is hypotensive with worsened renal fucntion as well. I stopped his BP meds and g ave 500cc saline boluses x 2. Seems improved presently but will have ot follow his volume s tatus and decide about further med mgt based on his progress. Hypomagnesemia: 12/29/18: Continue with current regimen for now, follow, and adjust as needed based on pro marino. 12/30/18: Continue to follow and replace as needed. 12/31/18: Follow and replace prn. Recent Labs Lab 12/31/18 0521 12/30/18 0528 12/29/18 0555 MG 2.5* 1.9 1.9 As per prior Hospitalist's note: Deep vein thrombosis prophylaxis: Heparin bid secondary to history of GI bleed and presentl y on aspirin therapy. SHAR DAWSON MD 12/31/2018 7:59 PM Greater than 35 minutes spent today overall in coordination of care, seeing and managing pa meghan, review of data, coordination with staff, coordination with involved consultants, and including any scheduled multidisciplinary rounding focused on the patient with 50 percent or more spent seeing and managing patient and counseling/coordination. Dictation software, Dragon, used which may contain error for similar sounding words even af ter review. Personal communication requested for any clarification. Portions of this chart may have been copied from previous notes for continuity of care purp ose onversion Transac tion, Provider Unknown - 12/31/2018 7:04 PM PDTFormatting of this note might be different f rom the original. Nurse Progress Note by Radha Chirinos RN at 12/31/181903 Author: Radha Chirinos RN Service: (none) Author Type: Registered Nurse Filed: 12/31/181903 Date of Service: 12/31/181903 Status: Signed Public Welfare Director: Radha Chirinos RN (Registered Nurse) 12 hour chart check completed onver sarah Transaction, Provider Unknown - 12/31/2018 12:53 PM PDT Nurse Progress Note by Ana Horn RN at 12/31/181252 Author: Ana Horn RN Service: Wound/Ostomy Care Author Type: Registered Nurse Filed: 12/31/181252 Date of Service: 12/31/181252 Status: Signed Public Welfare Director: Ana Horn RN (Registered Nurse) 2 layer Coban compression wraps applied bilaterally. Ana Horn RN, CMSRN, [facility] Inpatient Wound Care 12/31/2018 12:53 PM [phone] onver sarah Transaction, Provider Unknown - 12/31/2018 10:28 AM PDT Therapy Progress Note by Zak Walden PTA at 12/31/18 1028 Author: Zak Walden PTA Service: (none) Author Type: Crank Hand Filed: 12/31/18 1123 Date of Service: 12/31/18 1028 Status: Signed Public Welfare Director: Zak Walden PTA (Crank Hand) PHYSICAL THERAPY TREATMENT NOTE PT Received On: 12/31/18 Reason for Treatment: Deconditioning Requires PT Follow Up: Yes Recommendations: SNF Plan Treatment/Interventions: Continue per Primary PT POC Progress: Slow progress, medical status limitations Summary Comments: Pt supine in Bed when SUPERVISOR ROVING arrives, therapy focused on LE strengthening and transf er training. Pt BP pre therapy 84/51 pt reports no dizziness or light headed ness. Pt perfor med supine bed exercises and BP reassessed 84/52 with no symptoms of dizziness. pt was able to perform seated exercises BP 83/50 nursing was notified. Pt was able to perform sit to sta nd BP assessed with nursing in room 71/42. Pt was then placed back in bed and therapy was te rminated. Precautions Other Precautions: fall risk, monitor BP Cognition Overall Cognitive Status: Within Functional Limits Orientation Level: Oriented FUNCTIONAL MOBILITY Bed Mobility Supine to Sit: Min assist (1 LE OOB) Sit to Supine: Mod assist (BLEs into bed or trunk to lower) - Transfers Sit to/from Stand: Moderate assist (to arise OR lower) Ambulation Ambulation Assistance: Unable to assess (Comment), Safety concerns (low BP) THERAPEUTIC EXERCISE Supine-Exercise Type: Ankle pumps, Quad sets, Glut sets Supine-Exercise Comments: x10B Seated-Exercise Type: Ankle pumps, Seated marching, Long arc quads, Ball squeeze Seated-Exercise Comments: x10B Activity Tolerance: Patient tolerated treatment without report of fatigue, Treatment limite d secondary to medical complications Nurse Made Aware: yes present The patient demonstrated no indication of pain during therapy session. Education Completed: Education Topics: [x] Rationale for PT [x] PT POC [x] DC planning [x] Precautions [x] Exercises [x] Bed mobility [] Transfer training with hand placement [] Gait training [] Stair training [] Use of gait belt [x] Other BP Completed with: [x] Patient [x] Spouse [] Significant other [] Family [] Caregiver [] Other Completed by: [x] Verbal education [] Demonstration [] Handout [] Other: Response to Education: [x] Stated Understanding [] Reinforcement necessary [] Returned demonstration [] Demonstrated understanding [] No evidence of learning [] Refused PT Goals Goal Formulation: With patient Pt Will Go Supine To Sit: With standby assistance Pt Will Go Sit To Supine: With standby assistance Pt Will Transfer Sit to Stand: With standby assist Pt Will Ambulate: 150-200 feet Ambulate Level Assist: With modified independence Ambulate with Assistive Device: Walker 4 wheeled Reflects last filed data of patient's status; may be from multiple contributors onver sarah Transaction, Provider Unknown - 12/31/2018 9:53 AM PDT Case Management by Lyle Vences RN at 12/31/18952 Author: Lyle Vences RN Service: (none) Author Type: Registered Nurse Filed: 12/31/18953 Date of Service: 12/31/18952 Status: Signed Public Welfare Director: Lyle Vences RN (Registered Nurse) 9:53 AM Met with Michael and his . I let them know that Michael is accepted to [facility] when medically ready. They were in agreement with that plan. onver sarah Transaction, Provider Unknown - 12/31/2018 5:40 AM PDT Nurse Progress Note by Lisha Cruz RN at 12/31/18539 Author: Lisha Cruz RN Service: (none) Author Type: Registered Nurse Filed: 12/31/1853 Date of Service: 12/31/18539 Status: Signed Public Welfare Director: Lisha Cruz RN (Registered Nurse) Urine output 1195 this shift, clear and malodorous. VS stable. Restful shift. End of shift review complete. Lisha Cruz RN onver sarah Transaction, Provider Unknown - 12/30/2018 7:34 PM PDT Nurse Progress Note by Radha Chirinos RN at 12/30/181933 Author: Radha Chirinos RN Service: (none) Author Type: Registered Nurse Filed: 12/30/181934 Date of Service: 12/30/181933 Status: Signed Public Welfare Director: Radha Chirinos RN (Registered Nurse) 12 hour chart check complete onver sarah Transaction, Provider Unknown - 12/30/2018 3:09 PM PDT Nurse Progress Note by Alfred Phan RN at 12/30/18 150 Author: Alfred Phan RN Service: Wound/Ostomy Care Author Type: Registered Nurse Filed: 12/30/181510 Date of Service: 12/30/181508 Status: Signed Public Welfare Director: Alfred Phan RN (Registered Nurse) Wound care following up today as today the patient's compression wraps were due to be knowles ed on his legs. When I arrived, the wraps had already been removed and his legs, besides sosa ving a couple small dry wounds, looked very healthy. The patient states he wears the compre ssion for preventative measures. I discussed how he would like to proceed and he agreed to having wound care return tomorrow morning and place our 2 layer 'Coban 2' compression system on his lower legs bilaterally. I will place him on the schedule for this. onver sarah Transaction, Provider Unknown - 12/30/2018 12:01 PM PDT Case Management by Lyle Vences RN at 12/30/18 120 Author: Lyle Vences RN Service: (none) Author Type: Registered Nurse Filed: 12/30/181511 Date of Service: 12/30/18 120 Status: Addendum Public Welfare Director: Lyle Vences RN (Registered Nurse) Related Notes: Original Note by Lyle Vences RN (Registered Nurse) filed at 12/30/1809 27 12:01 PM Received call from [facility] in [place]. They can accept Michael . I let them know he will likely be here until at least Friday. 12:09 PM PASSR sent to [place]. 3:11 PM Discussed patient with Dr. Dawson. Michael will need another 48-72 hours in the hospital. Plan is to go to [place] in [place]. Shar Mehta MD - 12/30/2018 9:28 AM PDT Progress Notes by Shar Dawson MD at 12/30/18927 Author: Shar Dawson MD Service: Hospitalist Author Type: Physician Filed: 12/30/18 1707 Date of Service: 12/30/18927 Status: Signed Public Welfare Director: Shar Dawson MD (Physician) [facility] Service: Hospitalist Progress Note Pt: Michael Joshi AGE/SEX: 78 y.o. male ROOM: 7114/7114-1 : 1940 PCP: AMEE URRUTIA ADMIT DATE: 12/27/2018 TODAY'S DATE: 12/30/2018 Hospital Day: LOS: 2 days Post-Op Day: * No surgery found * Hospital Day/Hospital Course: LOS: 2 days As per prior Hospitalist's note: Briefly, 78-year-old male with extensive past medical history most significant for hyperten sarah, hyperlipidemia, morbid obesity, obstructive sleep apnea noncompliant with home CPAP on home oxygen prn, severe pulmonary hypertension complicated with cor pulmonale, CK D stage I II B (baseline creatinine 1.7-[address] 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 SUBJECTIVE: Patient seen and examined. Patient has no specific complaints today with the exception of s ome generalized weakness. He reports feeling reasonably well. No chest pain, SOSA. No cough on recumbency. Had no orthopnea or PND. No Abdominal pain, N/V or fever. No dizziness or lightheadedness. Scheduled Medications: allopurinol 200 mg Oral Daily amLODIPine 5 mg Oral Daily ascorbic acid 1,000 mg Oral Daily aspirin 162 mg Oral Daily with breakfast atorvastatin 40 mg Oral Nightly cholecalciferol 1,000 Units Oral Daily ferrous sulfate (65 FE) 65 mg of iron Oral TID WC heparin (porcine) 5000 unit/0.5mL 5,000 Units Subcutaneous 2 times per day losartan 100 mg Oral Daily magnesium sulfate 1 g Intravenous Once [START ON 12/31/2018] metolazone 10 mg Oral Daily metoprolol 25 mg Oral BID PARoxetine 20 mg Oral QAM potassium chloride 20 mEq Oral BID WC potassium CHLORIDE 20 mEq Intravenous Once sodium chloride (PF) 10 mL Intravenous Q8H [START ON 12/31/2018] torsemide 40 mg Oral BID-Diuretics Continuous Infusions PRN Medications acetaminophen OR acetaminophen, ammonium lactate, hydrALAZINE, HYDROcodone-acetaminophe n, nitroGLYCERIN, ondansetron OR ondansetron, polyethylene glycol, pramipexole Allergy: Allergies Allergen Reactions Vitamin K And Related Shortness of Breath Lisinopril Rash Warfarin Itching and Rash OBJECTIVE: Vitals: Patient Vitals for the past 24 hrs: BP Temp Temp src Pulse Resp SpO2 12/30/18 0746 126/73 97.7 F (36.5 C) Oral 99 20 97 % 12/30/18 0532 132/77 - - - - - 12/30/18 0320 127/72 98.2 F (36.8 C) Oral 74 20 98 % 12/30/18 0003 106/66 98.3 F (36.8 C) Oral 78 20 95 % 12/29/182004 - - - 97 - - 12/29/182000 101/72 97.7 F (36.5 C) Axillary 75 - 97 % 12/29/18 1652 97/58 - - - - - 12/29/18 1548 104/63 98 F (36.7 C) Oral 87 20 92 % 12/29/18 1100 96/69 97.8 F (36.6 C) Oral 94 20 93 % I&O Detailed Table: Intake/Output Summary (Last 24 hours) at 12/30/18 0928 Last data filed at 12/30/18 0747 Gross per 24 hour Intake 1498 ml Output 1975 ml Net -477 ml No data found. Hemodynamics Last 24hrs: Physical Examination: Constitutional: Alert and oriented to person, place, and time. Appears well-developed and w ell-nourished. NAD seems comfortable and calm HEENT: Neck supple, no JVD, non icteric sclera. Cardiovascular: Normal rate, regular rhythm, normal heart sounds, and intact distal pulses. Exam reveals no appreciated gallop or friction rub. No murmur heard. Pulmonary/Chest: Effort normal and breath sounds normal. No stridor. No respiratory distres s. no wheezes. no rales. exhibits no tenderness. Abdominal: Soft. Bowel sounds are normal. exhibits no distension. There is no tenderness. T here is no rebound and no guarding. Extremeties/Musculoskeletal: Normal general range of motion. Patient with a compression turner ssings off at present. Does have some chronic skin changes potentially related to venous sta sis versus some chronic hypoperfusion-type skin changes more difficult to tell since he just recently had the compression removed. Neurological: Alert and oriented to person, place, and time. Has normal reflexes. No olvin s cranial nerve or focal deficit. Exhibits normal muscle tone. Coordination normal. Skin: Skin is warm and dry. No rash noted. No erythema. No pallor. Of visible skin Psychiatric: Has a normal mood and affect given situation. Behavior is normal. Judgment nor mal for patient. LABS: Recent Labs Lab 12/30/1852712/29/18 0512/28/18517 WBC 9.71 10.15 8.35 HGB 12.5* 12.0* 10.4* HCT 38.0* 36.8* 30.9* PLT 210 197 165 NEUTOPHILPCT 77.17 80.14 81.99 MONOPCT 8.10 6.85 6.33 Recent Labs Lab 12/30/1852712/29/18 0555 12/28/1818 12/27/18516 NA 139 140 143 142 K 3.3* 3.6 4.3 4.6 CL 94* 98* 106 110* CO2 34* 31 28 21* BUN 65* 48* 40* 44* CREATININE 2.7* 2.2* 2.0* 1.9* PROT -- -- -- 6.4 BILITOT -- -- -- 0.5 ALT -- -- -- 14 AST -- -- -- 12 Phosphorus: Lab Results Component Value Date PHOS 3.8 12/30/2018 Invalid input(s): LABALBU Recent Labs Lab 12/30/18 0528 12/29/18 0555 12/28/18 0518 MG 1.9 1.9 1.7 No results for input(s): AMYLASE in the last 168 hours. No results for input(s): PHART, PO2ART, APV0FAM, D7UNANOD, BEART in the last 168 hours. No results for input(s): APTT, INR, PTT in the last 168 hours. Recent Labs Lab 12/27/18 0517 TSH 1.500 Recent Labs Lab 12/27/18 0751 12/27/18 0517 TROPONINI 0.046* 0.048* Results No results found for the last 72 hours. RADIOLOGY: Ks Myocardial Perfusion Spect (stress And Rest) Result Date: 12/28/2018 1. Mild heterogeneity of uptake on both rest and stress images probably related to patient body habitus/artifact. No definite evidence of ischemia or infarct. See above. 2. Normal L V wall motion. 3. LVEF 49% rest, 62% stress. Low risk stratification. Signed by: Kaleb Gray Sign Date/Time: 12/28/2018 1:56 PM Echo Cardiac Adult Complete Result Date: 12/27/2018 1. This was a technically difficult study with suboptimal views. 2. Adequate EF 3. Severe b i-atrial enlargement. PROBLEM LIST Principal Problem: SOB (shortness of breath) Active Problems: CKD (chronic kidney disease) stage 3, GFR 30-59 ml/min (HCC) Essential hypertension, benign Bilateral lower extremity edema Chronic atrial fibrillation (HCC) Cardiac pacemaker in situ Pulmonary hypertension (HCC) Right heart failure (HCC) Chronic systolic heart failure ([facility]) ASSESSMENT & PLAN 1. Acute respiratory distress : As per prior Hospitalist's note: -Resolving. -Multifactorial: Acute on chronic heart failure with preserved ejection fraction exacerbati on, obstructive sleep apnea with noncompliance with home CPAP, Severe pulmonary hypertension complicated by cor pulmonale, and morbid obesity. Possible anginal equivalent. -Likely etiology secondary to increased po fluid intake. Patient notes adherence to po med ication and salt restriction. -Hemodynamically stable. -Electrolytes reviewed. Target potassium greater than 4 and target magnesium greater than 2. -2-D echocardiogram 12/27 demonstrates EF 60-65 percent, mild concentric left ventricula r hypertrophy with mildly impaired right ventricular systolic function. CVP 15 mmHg. -Home diuretic therapy: Torsemide 40 mg po bid and metolazone 10 mg. -We increased diuretic therapy to torsemide 50 mg po bid and continue with metolazone 10 mg -initiated on 12/26. -Strict I's and O's. Target net negative 2 L. -Daily weights, kindly, use standing weight. -Fluid and salt restriction. -Supportive care. CPAP qhs -We will order nuclear medicine stress test, ordered when the patient was admitted secondar y to patient's inability to lay flat. 12/29/18: Clinically seems to be improving, creatinine climbing presently Slightly decrea se torsemide to prior 40mg bid dose and c/w remaining meds and follow 12/30/18: Patient reports breathing currently stable and markedly improved from earlier this admission. Continue with current regimen for now, follow, and adjust as needed based on progress. 2. CKD stage III B presently with an element of acute renal failure: As per prior Hospitalist's note: -Baseline creatinine 1.7-2 -Avoid nephrotoxic agents -Renally dose medications -Management per point #1. 12/29/18: creatinine increasing some,. See above 12/30/18: Patient's creatinine and BUN increased today I do suspect prerenal azotemia in the setting of diuresis. Patient currently seems symptomatically improved in response to the di uresis but he might be a bit dry at present. Will hold his diuretics today resume tomorrow b ut depending up on his labs tomorrow. Promote renal hygiene as possible. I will also liberal ize the fluid restriction from 1500 cc to 2 L. 3. Normocytic anemia: As per prior Hospitalist's note: -Ferritin 33 and TIBC 287 labs obtained on 12/27 -Likely etiology is possible anemia of chronic disease with superimposed iron deficiency an emia. -We will order ferrous sulfate tid -No indication for transfusion at this time. 12/29/18: Increasing h/h presently. 12/30/18: as below. Continue with current regimen and follow. Recent Labs Lab 12/30/18 0528 12/29/18 0555 12/28/18 0518 WBC 9.71 10.15 8.35 HGB 12.5* 12.0* 10.4* HCT 38.0* 36.8* 30.9* PLT 210 197 165 4. Chronic atrial fibrillation status post watchman's procedure: As per prior Hospitalist's note: -Target heart rate at rest persistently less than 110 bpm. -Decrease home rate control medication: Metoprolol 50 mg po bid to 25 mg po bid to allow fo r physiologic response. -No anticoagulation secondary to history of GI bleed. 12/29/18: As above 12/30/18: Continue with current regimen for now, follow, and adjust as needed based on progr ess. 5. Hypertension: As per prior Hospitalist's note: Resume home blood pressure medication: Losartan 100 mg q daily and amlodipine 10 mg q daily . -Hydralazine prn for decreased afterload reduction. 12/29/18: Continue with current regimen for now, follow, and adjust as needed based on pro marino. 12/30/18: Pressure currently controlled as below. No change today.Continue with current jennifer men for now, follow, and adjust as needed based on progress. Vitals: 12/30/18 0003 12/30/18 0320 12/30/18 0532 12/30/18 0746 BP: 106/66 127/72 132/77 126/73 BP Location: Left upper arm Left upper arm Left upper arm Pulse: 78 74 99 Resp: 20 20 20 Temp: 98.3 F (36.8 C) 98.2 F (36.8 C) 97.7 F (36.5 C) TempSrc: Oral Oral Oral SpO2: 95% 98% 97% Height: Hypomagnesemia: 12/29/18: Continue with current regimen for now, follow, and adjust as needed based on pro marino. 12/30/18: Continue to follow and replace as needed. Recent Labs Lab 12/30/18 0528 12/29/18 0555 12/28/18 0518 MG 1.9 1.9 1.7 As per prior Hospitalist's note: Deep vein thrombosis prophylaxis: Heparin bid secondary to history of GI bleed and presentl y on aspirin therapy. SHAR DAWSON MD 12/30/2018 9:28 AM Greater than 35 minutes spent today overall in coordination of care, seeing and managing pa meghan, review of data, coordination with staff, coordination with involved consultants, and including any scheduled multidisciplinary rounding focused on the patient with 50 percent or more spent seeing and managing patient and counseling/coordination. Dictation software, NameMedia, used which may contain error for similar sounding words even af ter review. Personal communication requested for any clarification. Portions of this chart may have been copied from previous notes for continuity of care purp ose onversion Transac tion, Provider Unknown - 12/30/2018 9:07 AM PDTFormatting of this note might be different f rom the original. Case Management by Lyle Vences RN at 12/30/18906 Author: Lyle Vences RN Service: (none) Author Type: Registered Nurse Filed: 12/30/18913 Date of Service: 12/30/18906 Status: Signed Public Welfare Director: Lyle Vences RN (Registered Nurse) 12/30/18903 Discharge Planning Evaluation Admitting Diagnosis SOB Readmission No Living Arrangements Spouse/significant other (Allegra) Support Systems Spouse/significant other Type of Residence Private residence Independent with ADL's Yes Independent with Mobility No-comment (uses cane/walker) Home Care Services No Caregiver after Discharge No Mental Status Oriented Anticipated Discharge Plan Post Acute Care Needs None at this time Resources Financial concerns No Transportation issues No Patient/Family concerns [facility] Previous home health equipment No Vascular access device No Ostomy/Drains/Appliances No Anticipated Disposition Facility Type [facility] facility;Home health custodial Health Care Facility Other (comment) ([facility] ) Snf Facility ([place]) Met with Michael and discussed discharge planning, Pt is a 78 y.o., male who lives in [facility] with his Allegra. PT is currently recomending SNF, but patient would prefer to retur home. Referrals sent to [facility] and [facility] . His baseline is using a walker/ cane and he gets his oxygen from [place]. Patient's PCP is:AMEE URRUTIA Patient's insurance: Medicare Coverage concerns: none Medication coverage/concerns: none Rx Bedside Delivery: not needed Community resources utilized / needed: none Assistance in transportation: drives, spouse Identification of any specific education / training: none Barriers to Discharge / Alternative housing needed: may need SNF Anticipated DCP: TBD Home VS SNF Lyle Vences Pedrito Cardona PT - 12/30/2018 8:35 AM PDTFormatting of this note might be different fro m the original. Therapy Progress Note by Pedrito Beck, PT at 12/30/18834 Author: Pedrito Beck PT Service: (none) Author Type: Physical Therapist Filed: 12/30/18915 Date of Service: 12/30/18834 Status: Signed Public Welfare Director: Pedrito Beck PT (Physical Therapist) PHYSICAL THERAPY TREATMENT NOTE PT Received On: 12/30/18 Reason for Treatment: Deconditioning Requires PT Follow Up: Yes Recommendations: SNF PT Ready for Discharge: Yes Plan Treatment/Interventions: Continue per Primary PT POC Progress: Slow progress, decreased activity tolerance Summary Comments: Pt agreeable to PT. BP 126/73, HR 85, 97%1.5L RA. He is demonstrating increased i ndependence today compared to previous session from a low surface he is still requiring MOD A to stand. He scores 13/28 on the tinetti assessment indicating that he is a high fall risk . During ambulation he requires short standing rest breaks x 2 (<30 seconds). At end of sess ion pt is in recliner with needs in reach. Continuing to recommend SNF at d/c 2/2 pt high fa ll risk and low activity tolerance, he will likely benefit from subactue rehab to progress a ctivity tolerance and decrease fall risk. Precautions Other Precautions: Fall risk Cognition Overall Cognitive Status: Within Functional Limits Orientation Level: Oriented Oriented: x 4 FUNCTIONAL MOBILITY Bed Mobility Supine to Sit: Standby assist, Verbal instruction Scooting : Standby assist, Verbal instruction, Visual instruction - Transfers Sit to/from Stand: Moderate assist (to arise OR lower) Ambulation Maximal Ambulation Distance (feet): 20 Total Ambulation Distance (feet): 54 Ambulation Assistance: Minimal assist Distance limited by?: Patient's ability Pattern: Decreased janelle, Right swing foot doesn't pass stance foot, Left swing foot does n't pass stance foot, Forward flexed, Wide base Assistive Device: Walker front wheeled BALANCE Balance: Yes High Level Balance Head Turn: Right, Left, Assistive device Standardized Test Tinetti Performance Oriented Mobility Assessment : THERAPEUTIC EXERCISE Activity Tolerance: Patient limited by fatigue Nurse Made Aware: y Safety Devices in Place: (call light in reach) The patient reported pain rated at a 0/10. RN was notified (na). Other measures provided to relieve pts pain included: na Education Completed: Education Topics: [x] Rationale for PT [x] PT POC [x] DC planning [] Precautions [] Exercises [x] Bed mobility [x] Transfer training with hand placement [x] Gait training [] Stair training [x] Use of gait belt [] Other Completed with: [x] Patient [] Spouse [] Significant other [] Family [] C aregiver [] Other Completed by: [x] Verbal education [x] Demonstration [] Handout [] Other: Response to Education: [x] Stated Understanding [x] Reinforcement necessary [x] Returned demonstration [] Demonstrated understanding [] No evidence of learning [] Refused PT Goals Goal Formulation: With patient Pt Will Go Supine To Sit: With standby assistance Pt Will Go Sit To Supine: With standby assistance Pt Will Transfer Sit to Stand: With standby assist Pt Will Ambulate: 150-200 feet Ambulate Level Assist: With modified independence Ambulate with Assistive Device: Walker 4 wheeled Reflects last filed data of patient's status; may be from multiple contributors onversion Tr ansaction, Provider Unknown - 12/30/2018 5:48 AM PDTFormatting of this note might be differ ent from the original. Nurse Progress Note by Lisha Cruz RN at 12/30/18547 Author: Lisha Cruz RN Service: (none) Author Type: Registered Nurse Filed: 12/30/1849 Date of Service: 12/30/18547 Status: Signed Public Welfare Director: Lisha Cruz RN (Registered Nurse) 7 beats of V tach per telecommunicator supervisor at 0542. Patient asymptomatic. Otherwise VS stable. No othe r acute events overnight. Urine output: 925 ml thus far this shift. End of shift review complete. Lisha Cruz RN onver sarah Transaction, Provider Unknown - 12/29/2018 6:35 PM PDT Nurse Progress Note by Kristine Mueller RN at 12/29/181834 Author: Kristine Mueller RN Service: (none) Author Type: Registered Nurse Filed: 12/29/18 184 Date of Service: 12/29/181834 Status: Signed Public Welfare Director: Kristine Mueller RN (Registered Nurse) No acute changes during shift. Pt day removed. Pt has been on room air all of shift, tole rating well. BP a little soft towards end of shift, MD aware. Intake 1098 mL for shift, outp ut 2450 mL. SBP 90-110, HR 80-90, and afebrile. End of shift audit complete. Erica Moura har Solorzano MD - 12/29/2018 4:15 PM PDT Progress Notes by Shar Dawson MD at 12/29/18 161 Author: Shar Dawson MD Service: Hospitalist Author Type: Physician Filed: 12/29/182143 Date of Service: 12/29/181614 Status: Signed Public Welfare Director: Shar Dawson MD (Physician) [facility] Service: Hospitalist Progress Note Pt: Michael Joshi AGE/SEX: 78 y.o. male ROOM: [address] [place] [address] : 1940 PCP: AMEE URRUTIA ADMIT DATE: 12/27/2018 TODAY'S DATE: 12/29/2018 Hospital Day: LOS: 1 day Post-Op Day: * No surgery found * Hospital Day/Hospital Course: LOS: 1 day As per prior Hospitalist's note: Briefly, 78-year-old male with extensive past medical history most significant for hyperten sarah, hyperlipidemia, morbid obesity, obstructive sleep apnea noncompliant with home CPAP on home oxygen prn, severe pulmonary hypertension complicated with cor pulmonale, CK D stage I II B (baseline creatinine 1.7-[address] 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 SUBJECTIVE: Patient seen and examined. Complaint of generalized weakness. . No chest pain, SOSA. No cough on recumbency. Had no orthopnea or PND. No Abdominal pain, N/V or fever. No dizziness or lightheadedness. Scheduled Medications: allopurinol 200 mg Oral Daily [START ON 12/30/2018] amLODIPine 5 mg Oral Daily ascorbic acid 1,000 mg Oral Daily aspirin 162 mg Oral Daily with breakfast atorvastatin 40 mg Oral Nightly cholecalciferol 1,000 Units Oral Daily ferrous sulfate (65 FE) 65 mg of iron Oral TID WC heparin (porcine) 5000 unit/0.5mL 5,000 Units Subcutaneous 2 times per day losartan 100 mg Oral Daily metolazone 10 mg Oral Daily metoprolol 25 mg Oral BID PARoxetine 20 mg Oral QAM potassium chloride 20 mEq Oral BID WC sodium chloride (PF) 10 mL Intravenous Q8H torsemide 50 mg Oral BID-Diuretics Continuous Infusions PRN Medications acetaminophen OR acetaminophen, ammonium lactate, hydrALAZINE, HYDROcodone-acetaminophe n, nitroGLYCERIN, ondansetron OR ondansetron, polyethylene glycol, pramipexole Allergy: Allergies Allergen Reactions Vitamin K And Related Shortness of Breath Lisinopril Rash Warfarin Itching and Rash OBJECTIVE: Vitals: Patient Vitals for the past 24 hrs: BP Temp Temp src Pulse Resp SpO2 12/29/18 1548 104/63 98 F (36.7 C) Oral 87 20 92 % 12/29/18 1100 96/69 97.8 F (36.6 C) Oral 94 20 93 % 12/29/18 0921 117/66 - - 98 - - 12/29/18 0805 123/77 98.1 F (36.7 C) Oral 95 20 94 % 12/29/18 0503 130/80 - - - - - 12/29/18 0441 127/75 97.8 F (36.6 C) Oral 79 20 96 % 12/29/18 0103 115/75 98 F (36.7 C) Oral 82 20 92 % 12/28/187 135/80 - - 90 - - 12/28/182019 140/87 98.2 F (36.8 C) Oral 73 18 93 % 12/28/18 1832 126/70 - - - - - I&O Detailed Table: Intake/Output Summary (Last 24 hours) at 12/29/18 1615 Last data filed at 12/29/18 1553 Gross per 24 hour Intake 900 ml Output 4300 ml Net -3400 ml No data found. Hemodynamics Last 24hrs: Physical Examination: Constitutional: Alert and oriented to person, place, and time. Appears well-developed and w ell-nourished. NAD HEENT: Neck supple, no JVD, non icteric sclera. Cardiovascular: Normal rate, regular rhythm, normal heart sounds, and intact distal pulses. Exam reveals no appreciated gallop or friction rub. No murmur heard. Pulmonary/Chest: Effort normal and breath sounds normal. No stridor. No respiratory distres s. no wheezes. no rales. exhibits no tenderness. Abdominal: Soft. Bowel sounds are normal. exhibits no distension. There is no tenderness. T here is no rebound and no guarding. Extremeties/Musculoskeletal: Normal general range of motion.compression dressings, edema in feet and above pitting likely 1+ or more. Neurological: Alert and oriented to person, place, and time. Has normal reflexes. No olvin s cranial nerve or focal deficit. Exhibits normal muscle tone. Coordination normal. Skin: Skin is warm and dry. No rash noted. No erythema. No pallor. Of visible skin Psychiatric: Has a normal mood and affect given situation. Behavior is normal. Judgment nor mal for patient. LABS: Recent Labs Lab 12/29/18 0512/28/18 0518 12/27/18 0517 WBC 10.15 8.35 7.62 HGB 12.0* 10.4* 9.8* HCT 36.8* 30.9* 30.0* PLT 197 165 164 NEUTOPHILPCT 80.14 81.99 79.31 MONOPCT 6.85 6.33 6.89 Recent Labs Lab 12/29/18 0555 12/28/1818 12/27/18 0517 NA 140 143 142 K 3.6 4.3 4.6 CL 98* 106 110* CO2 31 28 21* BUN 48* 40* 44* CREATININE 2.2* 2.0* 1.9* PROT -- -- 6.4 BILITOT -- -- 0.5 ALT -- -- 14 AST -- -- 12 Phosphorus: Lab Results Component Value Date PHOS 3.2 12/27/2018 Invalid input(s): LABALBU Recent Labs Lab 12/29/18 0555 12/28/18 0518 12/27/18 0517 MG 1.9 1.7 2.0 No results for input(s): AMYLASE in the last 168 hours. No results for input(s): PHART, PO2ART, TJJ7UOB, K7UUJGNS, BEART in the last 168 hours. No results for input(s): APTT, INR, PTT in the last 168 hours. Recent Labs Lab 12/27/18 0517 TSH 1.500 Recent Labs Lab 12/27/18 0751 12/27/18 0517 TROPONINI 0.046* 0.048* Results No results found for the last 72 hours. RADIOLOGY: Ks Myocardial Perfusion Spect (stress And Rest) Result Date: 12/28/2018 1. Mild heterogeneity of uptake on both rest and stress images probably related to patient body habitus/artifact. No definite evidence of ischemia or infarct. See above. 2. Normal L V wall motion. 3. LVEF 49% rest, 62% stress. Low risk stratification. Signed by: Kaleb Gray Sign Date/Time: 12/28/2018 1:56 PM Echo Cardiac Adult Complete Result Date: 12/27/2018 1. This was a technically difficult study with suboptimal views. 2. Adequate EF 3. Severe b i-atrial enlargement. PROBLEM LIST Principal Problem: SOB (shortness of breath) Active Problems: CKD (chronic kidney disease) stage 3, GFR 30-59 ml/min (HCC) Essential hypertension, benign Bilateral lower extremity edema Chronic atrial fibrillation (HCC) Cardiac pacemaker in situ Pulmonary hypertension (HCC) Right heart failure (HCC) Chronic systolic heart failure (HCC) ASSESSMENT & PLAN 1. Acute respiratory distress : As per prior Hospitalist's note: -Resolving. -Multifactorial: Acute on chronic heart failure with preserved ejection fraction exacerbati on, obstructive sleep apnea with noncompliance with home CPAP, Severe pulmonary hypertension complicated by cor pulmonale, and morbid obesity. Possible anginal equivalent. -Likely etiology secondary to increased po fluid intake. Patient notes adherence to po med ication and salt restriction. -Hemodynamically stable. -Electrolytes reviewed. Target potassium greater than 4 and target magnesium greater than 2. -2-D echocardiogram 12/27 demonstrates EF 60-65 percent, mild concentric left ventricula r hypertrophy with mildly impaired right ventricular systolic function. CVP 15 mmHg. -Home diuretic therapy: Torsemide 40 mg po bid and metolazone 10 mg. -We increased diuretic therapy to torsemide 50 mg po bid and continue with metolazone 10 mg -initiated on 12/26. -Strict I's and O's. Target net negative 2 L. -Daily weights, kindly, use standing weight. -Fluid and salt restriction. -Supportive care. CPAP qhs -We will order nuclear medicine stress test, ordered when the patient was admitted secondar y to patient's inability to lay flat. 12/29/18: Clinically seems to be improving, creatinine climbing presently Slightly decrea se torsemide to prior 40mg bid dose and c/w remaining meds and follow 2. CKD stage III B: As per prior Hospitalist's note: -Baseline creatinine 1.7-2 -Avoid nephrotoxic agents -Renally dose medications -Management per point #1. 12/29/18: creatinine increasing some,. See above 3. Normocytic anemia: As per prior Hospitalist's note: -Ferritin 33 and TIBC 287 labs obtained on 12/27 -Likely etiology is possible anemia of chronic disease with superimposed iron deficiency an emia. -We will order ferrous sulfate tid -No indication for transfusion at this time. 12/29/18: Increasing h/h presently. Recent Labs Lab 12/29/18 0555 12/28/18 0518 12/27/18 0517 WBC 10.15 8.35 7.62 HGB 12.0* 10.4* 9.8* HCT 36.8* 30.9* 30.0* PLT 197 165 164 4. Chronic atrial fibrillation status post watchman's procedure: As per prior Hospitalist's note: -Target heart rate at rest persistently less than 110 bpm. -Decrease home rate control medication: Metoprolol 50 mg po bid to 25 mg po bid to allow fo r physiologic response. -No anticoagulation secondary to history of GI bleed. 12/29/18: As above 5. Hypertension: As per prior Hospitalist's note: Resume home blood pressure medication: Losartan 100 mg q daily and amlodipine 10 mg q daily . -Hydralazine prn for decreased afterload reduction. 12/29/18: Continue with current regimen for now, follow, and adjust as needed based on pro marino. Vitals: 12/29/18 1548 12/29/18 1652 12/29/18200012/29/182004 BP: 104/63 97/58 101/72 BP Location: Left upper arm Left upper arm Pulse: 87 75 97 Resp: 20 Temp: 98 F (36.7 C) 97.7 F (36.5 C) TempSrc: Oral Axillary SpO2: 92% 97% Height: Hypomagnesemia: 12/29/18: Continue with current regimen for now, follow, and adjust as needed based on pro marino. Recent Labs Lab 12/29/18 0555 12/28/18 0518 12/27/18 0517 MG 1.9 1.7 2.0 As per prior Hospitalist's note: Deep vein thrombosis prophylaxis: Heparin bid secondary to history of GI bleed and presentl y on aspirin therapy. SHAR DAWSON MD 12/29/2018 4:15 PM Greater than 35 minutes spent today overall in coordination of care, seeing and managing pa tient, review of data, coordination with staff, coordination with involved consultants, and including any scheduled multidisciplinary rounding focused on the patient with 50 percent or more spent seeing and managing patient and counseling/coordination. Dictation software, NameMedia, used which may contain error for similar sounding words even af ter review. Personal communication requested for any clarification. Portions of this chart may have been copied from previous notes for continuity of care purp ose onversion Transac tion, Provider Unknown - 12/29/2018 3:53 PM PDTFormatting of this note might be different f rom the original. Therapy Progress Note by Alva Mohamud PT at 12/29/18 9835 Author: Alva Mohamud PT Service: (none) Author Type: Physical Therapist Filed: 12/29/18 3891 Date of Service: 12/29/18 6448 Status: Signed Public Welfare Director: Alva Mohamud PT (Physical Therapist) PHYSICAL THERAPY TREATMENT NOTE PT Received On: 12/29/18 Reason for Treatment: Deconditioning Requires PT Follow Up: Yes Focus for Next Treatment: Formal Balance Assessment Recommendations: SNF Barriers to Discharge: Physical Deficits Impacting Functional [place], Self-care Defic its Impacting Functional [place], Lack of Family Support/Training PT Ready for Discharge: Yes Plan Treatment/Interventions: Continue per Primary PT POC Progress: Slow progress, decreased activity tolerance Summary Comments: Pt reclined in bed when PT arrived, pt agreeable to therapy. Pt denied reports of pain throughout session. Pt motivated to work with therapy today and willing to do all that was asked of him. Pt participated in transfer and gait training within the room. Pt benefit s from [id number] instruction for transfer techinque and does better when able to build up momentum to facilitate transfer. Pt initially retropulsive upon initial standing, but with cueing to maintain COM over SACHIN, pt able to correct this position. Pt was able to increase o verall activity tolerance, however, still very limited by fatigue/deconditioning. He was abl e to amb x 1 lap around room with 1 standing rest break. Pt ended session seated in recliner - all needs met/within reach. Precautions Other Precautions: fall risk Cognition Overall Cognitive Status: Within Functional Limits Orientation Level: Oriented Oriented: x 4 FUNCTIONAL MOBILITY Bed Mobility Supine to Sit: Mod assist (BLEs OOB or trunk to upright) (HOB elevated) Scooting : Standby assist - Transfers Sit to/from Stand: Moderate assist (to arise OR lower), Verbal instruction Ambulation Maximal Ambulation Distance (feet): 20 Total Ambulation Distance (feet): 40 Ambulation Assistance: Minimal assist, X1, X2 (2nd person present to follow closely with w/ c) Distance limited by?: Patient's ability Pattern: Alternating, Decreased janelle, Right swing foot doesn't pass stance foot, Left sw ing foot doesn't pass stance foot, Forward flexed, Wide base Assistive Device: Walker front wheeled Activity Tolerance: Patient limited by fatigue Nurse Made Aware: Yes Safety Devices in Place: (Call light in reach, chair alarmed) Restraints Initially in Place: No The patient demonstrated no indication of pain during therapy session. Education Completed: Education Topics: [x] Rationale for PT [x] PT POC [x] DC planning [] Precautions [] Exercises [x] Bed mobility [x] Transfer training with hand placement [x] Gait training [] Stair training [x] Use of gait belt [] Other Completed with: [x] Patient [] Spouse [] Significant other [] Family [] C aregiver [] Other Completed by: [x] Verbal education [] Demonstration [] Handout [] Other: Response to Education: [x] Stated Understanding [x] Reinforcement necessary [] Returned demonstration [] Demonstrated understanding [] No evidence of learning [] Refused PT Goals Goal Formulation: With patient Pt Will Go Supine To Sit: With standby assistance Pt Will Go Sit To Supine: With standby assistance Pt Will Transfer Sit to Stand: With standby assist Pt Will Ambulate: 150-200 feet Ambulate Level Assist: With modified independence Ambulate with Assistive Device: Walker 4 wheeled Reflects last filed data of patient's status; may be from multiple contributors onver sarah [place]action, Provider Unknown - 12/29/2018 7:31 AM PDT Nurse Progress Note by Maria De Jesus De La Cruz RN at 12/29/18730 Author: Maria De Jesus De La Cruz RN Service: (none) Author Type: Registered Nurse Filed: 12/29/1846 Date of Service: 12/29/18730 Status: Signed Public Welfare Director: Maria De Jesus De La Cruz RN (Registered Nurse) Michael is A&O x4, afebrile, and VSS. Pt was attempted to be weaned off of O2, however his O2 sats decreased to 88% on .5L NC, therefore his O2 was increased to 1L NC. Pt refused CPAP at night stating the last time he used it was 5 years ago, and he was not able to tolerate it very well. RT stated that based on her assessment he did not require CPAP (see RT note). Wou nd care was provided. Also, he continued to have adequate UO. No acute changes since shift a ssessment. End of shift audit complete.Maria De Jesus De La Cruz RN. onver sarah Transaction, Provider Unknown - 12/29/2018 1:01 AM PDT Progress Notes by Rhonda Spann RRT at 12/29/18100 Author: Rhonda Spann RRT Service: (none) Author Type: Certified Respiratory Thera pist Filed: 12/29/18105 Date of Service: 12/29/18100 Status: Signed Public Welfare Director: Rhonda Spann RRT (Certified Respiratory Therapist) Per RN's request, Pt was assessed for need of CPAP. Pt on 2L, satting in the low-mid 90s an d in no respiratory distress. According to the Pt, the last time he wore a home unit CPAP wa s 5 years ago when he had [facility]. In addition, the Pt indicated that he no longer snores and th erefore doesn't necessitate to use CPAP. Pt refused to wear CPAP. RN updated. onver sarah Transaction, Provider Unknown - 12/28/2018 7:58 PM PDT Nurse Progress Note by Kristine Mueller RN at 12/28/181957 Author: Kristine Mueller RN Service: (none) Author Type: Registered Nurse Filed: 12/28/181958 Date of Service: 12/28/181957 Status: Signed Public Welfare Director: Kristine Mueller RN (Registered Nurse) Urine output for shift was 2900 mL. Intake 1000 mL. Kristine Mueller RN onver sarah Transaction, Provider Unknown - 12/28/2018 7:06 PM PDT Nurse Progress Note by Kristine Mueller RN at 12/28/181905 Author: Kristine Mueller RN Service: (none) Author Type: Registered Nurse Filed: 12/28/181908 Date of Service: 12/28/181905 Status: Signed Public Welfare Director: Kristine Mueller RN (Registered Nurse) No acute changes during shift. Pt got up to chair with PT tolerated well. Pt remains 2 pers on assist with walker and gait belt, weak when getting up and c/o pain in L foot, MD aware. Pt on 1L oxygen via nasal cannula, sats mid 90's. Stress test was completed today. SBP 120-1 50, HR 90, and afebrile. End of shift audit complete. Kristine Mueller RN bleFranki royal MD - 12/28/2018 9:45 AM PDT Progress Notes by Franki Carrizales MD at 12/28/18944 Author: Franki Carrizales MD Service: Hospitalist Author Type: Physician Filed: 12/28/18 1538 Date of Service: 12/28/18944 Status: Addendum Public Welfare Director: Franki Carrizales MD (Physician) Related Notes: Original Note by Franki Carrizales MD (Physician) filed at 12/28/[address] [facility] Service: Hospitalist Progress Note Hospital Day: LOS: 0 days Briefly, 78-year-old male with extensive past medical history most significant for hyperten sarah, hyperlipidemia, morbid obesity, obstructive sleep apnea noncompliant with home CPAP on home oxygen prn, severe pulmonary hypertension complicated with cor pulmonale, CK D stage I II B (baseline creatinine 1.7-[address] 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 SUBJECTIVE No acute overnight events. Alert and oriented 4. Spouse at bedside. Shortness of breat h at rest, resolved. Patient does have dyspnea on exertion. Associated with lower extremit y swelling, fatigue and malaise. Progression stable, with improvement. REVIEW OF SYSTEMS: ROS As above Joint pain Other systems reviewed and are negative. OBJECTIVE Vital Signs: BP 148/81 | Pulse 82 | Temp 98.4 F (36.9 C) (Oral) | Resp 20 | Ht 1.676 m (5' 6") | SpO2 95% | BMI 43.58 kg/m Constitutional: Patient is awake, alert, oriented to time, place, person, and presenting co mplaint. Patient sitting up in bed. Spouse at bedside. Eyes: Scleral anicteric. Neck: Supple, positive JVD. Respiratory: Bilateral crackles. CVS: S1 and S2 audible, no murmurs, rubs or gallops. +3 peripheral edema. GI: Normal Bowel sounds. Soft, non tender. No organomegaly. Mildly distended. Musculoskeletal: Muscle strength 5/5 in B/L upper and lower extremities. Back examination: No CVA tenderness. Extremities: No pedal cyanosis or clubbing. Neurologic examination: Patient follows commands. Speech understandable. Cranial nerve II through XII grossly intact. Psychiatry: No hallucinations, SI or intent of hurting others. Ingumentary: Warm and supple. DATA Labs, medications, allergies and other treatment team notes reviewed. Imaging reviewed. Principal Problem: SOB (shortness of breath) Active Problems: CKD (chronic kidney disease) stage 3, GFR 30-59 ml/min (HCC) Essential hypertension, benign Bilateral lower extremity edema Chronic atrial fibrillation (HCC) Cardiac pacemaker in situ Pulmonary hypertension (HCC) Right heart failure (HCC) Chronic systolic heart failure (HCC) ASSESSMENT & PLAN 1. Acute respiratory distress : -Resolving. -Multifactorial: Acute on chronic heart failure with preserved ejection fraction exacerbati on, obstructive sleep apnea with noncompliance with home CPAP, Severe pulmonary hypertension complicated by cor pulmonale, and morbid obesity. Possible anginal equivalent. -Likely etiology secondary to increased po fluid intake. Patient notes adherence to po med ication and salt restriction. -Hemodynamically stable. -Electrolytes reviewed. Target potassium greater than 4 and target magnesium greater than 2. -2-D echocardiogram 12/27 demonstrates EF 60-65 percent, mild concentric left ventricula r hypertrophy with mildly impaired right ventricular systolic function. CVP 15 mmHg. -Home diuretic therapy: Torsemide 40 mg po bid and metolazone 10 mg. -We increased diuretic therapy to torsemide 50 mg po bid and continue with metolazone 10 mg -initiated on 12/26. -Strict I's and O's. Target net negative 2 L. -Daily weights, kindly, use standing weight. -Fluid and salt restriction. -Supportive care. CPAP qhs -We will order nuclear medicine stress test, ordered when the patient was admitted secondar y to patient's inability to lay flat. 2. CKD stage III B: -Baseline creatinine 1.7-2 -Avoid nephrotoxic agents -Renally dose medications -Management per point #1. 3. Normocytic anemia: -Ferritin 33 and TIBC 287 labs obtained on 12/27 -Likely etiology is possible anemia of chronic disease with superimposed iron deficiency an emia. -We will order ferrous sulfate tid -No indication for transfusion at this time. 4. Chronic atrial fibrillation status post watchman's procedure: -Target heart rate at rest persistently less than 110 bpm. -Decrease home rate control medication: Metoprolol 50 mg po bid to 25 mg po bid to allow fo r physiologic response. -No anticoagulation secondary to history of GI bleed. 5. Hypertension: Resume home blood pressure medication: Losartan 100 mg q daily and amlodipine 10 mg q daily . -Hydralazine prn for decreased afterload reduction. Hypomagnesemia: -Repleted with 2 g of magnesium sulfate. Target as per point #1. Deep vein thrombosis prophylaxis: Heparin bid secondary to history of GI bleed and presentl y on aspirin therapy. Disposition: Inpatient Code Status: Full Code Franki Carrizales MD 12/27/2018 onversion Transact ion, Provider Unknown - 12/28/2018 9:38 AM PDTFormatting of this note might be different fr om the original. Case Management by Lyle Vences RN at 12/28/18937 Author: Lyle Vences RN Service: (none) Author Type: Registered Nurse Filed: 12/28/1840 Date of Service: 12/28/18937 Status: Signed Public Welfare Director: Lyle Vences RN (Registered Nurse) 9:39 AM Discussed patient with Dr Carrizales. Michael will need another day in the hospital, stress angella t is scheduled for tomorrow. Inpatient orders placed. onver sarah Transaction, Provider Unknown - 12/28/2018 7:05 AM PDT Nurse Progress Note by Maria De Jesus De La Cruz RN at 03/09/07 705 Author: Maria De Jesus De La Cruz RN Service: (none) Author Type: Registered Nurse Filed: 12/28/18708 Date of Service: 12/28/18704 Status: Signed Public Welfare Director: Maria De Jesus De La Cruz RN (Registered Nurse) Michael is A&O x4, afebrile and VSS. He continued to be on 2L NC, O2 sats were stable at 95%. He denied chest pain and did not require any pain medication. No acute changes since shift a ssessment. End of shift audit complete.Maria De Jesus De La Cruz RN. onver sarah Transaction, Provider Unknown - 12/27/2018 6:59 PM PDT Nurse Progress Note by Kristine Mueller RN at 12/27/181858 Author: Kristine Mueller RN Service: (none) Author Type: Registered Nurse Filed: 12/27/181940 Date of Service: 12/27/181858 Status: Signed Public Welfare Director: Kristine Mueller RN (Registered Nurse) Pt transfered from U at 1745, report received from Ashley CASTANEDA. Pt vitals stable upon arriv al, SBP 140, HR 60, and afebrile. Pt continues to wear oxygen at 2L via nasal cannula, geo ating well. Pt and 's concerns and questions addressed. End of shift audit complete. Sarah Mueller RN onver sarah Transaction, Provider Unknown - 12/27/2018 10:40 AM PDT Nurse Progress Note by Ashley Chappell RN at 12/27/18 104 Author: Ashley Chappell RN Service: (none) Author Type: Registered Nurse Filed: 12/27/18 1633 Date of Service: 12/27/18 104 Status: Signed Public Welfare Director: Ashley Chappell RN (Registered Nurse) Pacemaker interrogation completed, see report on patient's chart. onver sarah Transaction, Provider Unknown - 12/27/2018 8:06 AM PDT Nurse Progress Note by Pablo Amezcua RN at 12/27/18805 Author: Pablo Amezcua RN Service: (none) Author Type: Registered Nurse Filed: 12/27/18805 Date of Service: 12/27/18805 Status: Signed Public Welfare Director: Pablo Amezcua RN (Registered Nurse) RN spoke with Dr. Carrizales regarding pt's labetolol administration. See VO of hydralazine. Pablo Amezcua RN onver sarah Transaction, Provider Unknown - 12/27/2018 6:45 AM PDT Nurse Progress Note by Rebeka Rodrigues RN at 12/27/18644 Author: Rebeka Rodrigues RN Service: (none) Author Type: Registered Nurse Filed: 12/27/18644 Date of Service: 12/27/18644 Status: Signed Public Welfare Director: Rebeka Rodrigues RN (Registered Nurse) End of shift audit complete. onver sarah Transaction, Provider Unknown - 12/27/2018 5:33 AM PDT Pharmacy Note by Kojo Draper RPH at 12/27/18532 Author: Kojo Draper RPH Service: Pharmacy Author Type: Pharmacist Filed: 12/27/18532 Date of Service: 12/27/18532 Status: Signed Public Welfare Director: Kojo Draper RPH (Pharmacist) Clinical Pharmacy Note: Renal Monitoring Michael Joshi 78 y.o. male Ht Readings from Last 1 Encounters: 12/27/18 1.676 m (5' 6") Wt Readings from Last 1 Encounters: 11/23/18 122.5 kg (270 lb) Creatinine clearance cannot be calculated (Patient's most recent lab result is older than t he maximum 30 days allowed.) Lab Results Component Value Date CREATININE 1.67 (A) 11/20/2018 Pharmacy dosing for renal function per Dr. Reese Currently, there are no labs. Pharmacy will adjust medications, if necessary, when labs are reported. Kojo Draper PharmD 12/27/2018 5:32 AM Larry armstrong in this encounter Plan of Treatment +--------+ + + + + | Date | Type | Specialty | Care Team | Description | +--------+ + + + + | 11/29/ | Office | Nephrology | Danny Gandara MD | | | 2019 | Visit | | [address] [facility] | | | | | | [address] [place], [place] | | | | | | [id number] | | | | | | | [...] | EXTERNAL LAB: CBC | Routin | 01/05/2019 | | Results [...] | EXTERNAL LAB: CBC | Routin | 01/04/2019 | | Results [...] +--------+ + + + | EXTERNAL LAB: DORA | Routin | 01/03/2019 | | Results [...] +--------+ + + + | EXTERNAL LAB: DORA | Routin | 01/02/2019 | | Results [...] | EXTERNAL LAB: CBC | Routin | 01/01/2019 | | Results [...] | EXTERNAL LAB: CBC | Routin | 12/31/2018 | | Results for this | | | e | 5:21 AM | | procedure are in the | | | | PDT | | results section. | + +--------+ + + + | PROCALCITONIN, SERUM | Routin | 12/31/2018 | | Results [...] | + +--------+ + + + | VAS ANKLE BRACHIAL | Routin | 12/30/2018 | | Results for this | | INDEX RESTING | e | 12:31 PM | | procedure are in the | | | | PDT | | results section. | + +--------+ + + + | EXTERNAL LAB: CBC | Routin | 12/30/2018 | | Results [...] | EXTERNAL LAB: CBC | Routin | 12/29/2018 | | Results for this | | | e | 5:55 AM | | procedure are in the | | | | PDT | | results section. | + +--------+ + + + | MAGNESIUM | Routin | 12/29/2018 | | Results for this | | | e | 5:55 AM | | procedure are in the | | | | PDT | | results section. | + +--------+ + + + | BASIC METABOLIC | Routin | 12/29/2018 | | Results for this | | PANEL | e | 5:55 AM | | procedure are in the | | | | PDT | | results section. | + +--------+ + + + | NM MYOCARDIAL | Routin | 12/28/2018 | | Results for this | | PERFUSION MULT SPECT | e | 1:35 PM | | procedure are in the | | | | PDT | | results section. | + +--------+ + + + | EXTERNAL LAB: CBC | Routin | 12/28/2018 | | Results for this | | | e | 5:18 AM | | procedure are in the | | | | PDT | | results section. | + +--------+ + + + | MAGNESIUM | Routin | 12/28/2018 | | Results for this | | | e | 5:18 AM | | procedure are in the | | | | PDT | | results section. | + +--------+ + + + | BASIC METABOLIC | Routin | 12/28/2018 | | Results for this | | PANEL | e | 5:18 AM | | procedure are in the | | | | PDT | | results section. | + +--------+ + + + | RETIC COUNT | Routin | 12/27/2018 | | Results for this | | | e | 4:43 PM | | procedure are in the | | | | PDT | | results section. | + +--------+ + + + | ECHO COMPLETE | Routin | 12/27/2018 | | Results for this | | | e | 9:01 AM | | procedure are in the | | | | PDT | | results section. | + +--------+ + + + | TROPONIN I | Routin | 12/27/2018 | | Results for this | | | e | 7:51 AM | | procedure are in the | | | | PDT | | results section. | + +--------+ + + + | B TYPE NATRIURETIC | Routin | 12/27/2018 | | Results for this | | PEPTIDE | e | 5:31 AM | | procedure are in the | | | | PDT | | results section. | + +--------+ + + + | EXTERNAL LAB: CBC | Routin | 12/27/2018 | | Results for this | | | e | 5:17 AM | | procedure are in the | | | | PDT | | results section. | + +--------+ + + + | IRON AND IRON | Routin | 12/27/2018 | | Results for this | | BINDING CAPACITY | e | 5:17 AM | | procedure are in the | | | | PDT | | results section. | + +--------+ + + + | LIPID PANEL | Routin | 12/27/2018 | | Results for this | | | e | 5:17 AM | | procedure are in the | | | | PDT | | results section. | + +--------+ + + + | TROPONIN I | Routin | 12/27/2018 | | Results for this | | | e | 5:17 AM | | procedure are in the | | | | PDT | | results section. | + +--------+ + + + | TSH | Routin | 12/27/2018 | | Results for this | | | e | 5:17 AM | | procedure are in the | | | | PDT | | results section. | + +--------+ + + + | PHOSPHORUS | Routin | 12/27/2018 | | Results for this | | | e | 5:17 AM | | procedure are in the | | | | PDT | | results section. | + +--------+ + + + | MAGNESIUM | Routin | 12/27/2018 | | Results for this | | | e | 5:17 AM | | procedure are in the | | | | PDT | | results section. | + +--------+ + + + | HEMOGLOBIN A1C | Routin | 12/27/2018 | | Results for this | | | e | 5:17 AM | | procedure are in the | | | | PDT | | results section. | + +--------+ + + + | FERRITIN | Routin | 12/27/2018 | | Results for this | | | e | 5:17 AM | | procedure are in the | | | | PDT | | results section. | + +--------+ + + + | COMPREHENSIVE | Routin | 12/27/2018 | | Results for this | | METABOLIC PANEL | e | 5:17 AM | | procedure are in the | | | | PDT | | results section. | + +--------+ + + + | ECG 12 LEAD | Routin | 12/27/2018 | | Results for this | | | e | 3:39 AM | | procedure are in the | | | | PDT | | results section. | + +--------+ + + + documented in this encounter Results Renal Function Panel (01/08/2019 6:14 AM PDT) + + + + + + | Component | Value | Ref Range | Performed | Pathologist | | | | | At | Signature | + + + + + + | Na | 140 | 135 - 145 | EXTERNAL | | | | | mmol/L | LAB | | + + + + + + | K | 3.8 | 3.5 - 4.9 | EXTERNAL | | | | | mmol/L | LAB | | + + + + + + | Cl | 99 | 99 - 109 mmol/L | EXTERNAL | | | | | | LAB | | + + + + + + | CO2 | 32 | 23 - 32 mmol/L | EXTERNAL | | | | | | LAB | | + + + + + + | Anion Gap | 13 | 5 - 20 mmol/L | EXTERNAL | | | | | | LAB | | + + + + + + | Glucose, | 105 (H) | 65 - 99 mg/dL | EXTERNAL | | | Fasting | | | LAB | | + + + + + + | BUN | 94 (H) | 8 - 25 mg/dL | EXTERNAL | | | | | | LAB | | + + + + + + | Creatinine | 2.6 (H) | 0.70 - 1.30 | EXTERNAL | | | | | mg/dL | LAB | | + + + + + + | Calcium | 10.0 | 8.5 - 10.5 | EXTERNAL | | | | | mg/dL | LAB | | + + + + + + | Albumin | 3.0 (L) | 3.3 - 4.8 g/dL | EXTERNAL | | | | | | LAB | | + + + + + + | PHOSPHORUS | 3.6 | 2.3 - 4.8 mg/dL | EXTERNAL | | | | | | LAB | | + + + + + + | Estimated | 24 (L)Comment: GFR <60: | mL/min/1.73m2 | EXTERNAL | | | GFR | CHRONIC KIDNEY DISEASE, | | LAB | | | | IF FOUND OVER A 3 MONTH | | | | | | PERIOD.GFR <15: KIDNEY | | | | | | FAILURE.FOR | | | | | | AMERICANS, MULTIPLY THE | | | | | | CALCULATED GFR BY | | | | | | 1.210.This eGFR is | | | | | | calculated using the | | | | | | MDRD IDMS traceable | | | | | | equation.Testing | | | | | | performed at [facility], [address] | | | | | | [address], | | | | | | [place] [address] | | | | + + + [...] + +---------+ + + Renal Function Panel (01/07/2019 4:38 AM PDT) + + + + + + | Component | Value | Ref Range | Performed | Pathologist | | | | | At | Signature | + + + + + + | Na | 139 | 135 - 145 | EXTERNAL | | | | | mmol/L | LAB | | + + + + + + | K | 3.3 (L) | 3.5 - 4.9 | EXTERNAL | | | | | mmol/L | LAB | | + + + + + + | Cl | 96 (L) | 99 - 109 mmol/L | EXTERNAL | | | | | | LAB | | + + + + + + | CO2 | 33 (H) | 23 - 32 mmol/L | EXTERNAL | | | | | | LAB | | + + + + + + | Anion Gap | 13 | 5 - 20 mmol/L | EXTERNAL | | | | | | LAB | | + + + + + + | Glucose, | 96 | 65 - 99 mg/dL | EXTERNAL | | | Fasting | | | LAB | | + + + + + + | BUN | 96 (H) | 8 - 25 mg/dL | EXTERNAL | | | | | | LAB | | + + + + + + | Creatinine | 2.8 (H) | 0.70 - 1.30 | EXTERNAL | | | | | mg/dL | LAB | | + + + + + + | Calcium | 9.5 | 8.5 - 10.5 | EXTERNAL | | | | | mg/dL | LAB | | + + + + + + | Albumin | 3.0 (L) | 3.3 - 4.8 g/dL | EXTERNAL | | | | | | LAB | | + + + + + + | PHOSPHORUS | 3.3 | 2.3 - 4.8 mg/dL | EXTERNAL | | | | | | LAB | | + + + + + + | Estimated | 22 (L)Comment: GFR <60: | mL/min/1.73m2 | EXTERNAL | | | GFR | CHRONIC KIDNEY DISEASE, | | LAB | | | | IF FOUND OVER A 3 MONTH | | | | | | PERIOD.GFR <15: KIDNEY | | | | | | FAILURE.FOR | | | | | | AMERICANS, MULTIPLY THE | | | | | | CALCULATED GFR BY | | | | | | 1.210.This eGFR is | | | | | | calculated using the | | | | | | MDRD IDMS traceable | | | | | | equation.Testing | | | | | | performed at [facility], [address] | | | | | | [facility], | | | | | | [place] [address] | | | | + + + [...] + +---------+ + + Renal Function Panel (01/06/2019 5:36 AM PDT) + + + + + + | Component | Value | Ref Range | Performed | Pathologist | | | | | At | Signature | + + + + + + | Na | 139 | 135 - 145 | EXTERNAL | | | | | mmol/L | LAB | | + + + + + + | K | 3.4 (L) | 3.5 - 4.9 | EXTERNAL | | | | | mmol/L | LAB | | + + + + + + | Cl | 95 (L) | 99 - 109 mmol/L | EXTERNAL | | | | | | LAB | | + + + + + + | CO2 | 33 (H) | 23 - 32 mmol/L | EXTERNAL | | | | | | LAB | | + + + + + + | Anion Gap | 14 | 5 - 20 mmol/L | EXTERNAL | | | | | | LAB | | + + + + + + | Glucose, | 103 (H) | 65 - 99 mg/dL | EXTERNAL | | | Fasting | | | LAB | | + + + + + + | BUN | 89 (H) | 8 - 25 mg/dL | EXTERNAL | | | | | | LAB | | + + + + + + | Creatinine | 2.9 (H) | 0.70 - 1.30 | EXTERNAL | | | | | mg/dL | LAB | | + + + + + + | Calcium | 9.5 | 8.5 - 10.5 | EXTERNAL | | | | | mg/dL | LAB | | + + + + + + | Albumin | 2.9 (L) | 3.3 - 4.8 g/dL | EXTERNAL | | | | | | LAB | | + + + + + + | PHOSPHORUS | 3.5 | 2.3 - 4.8 mg/dL | EXTERNAL | | | | | | LAB | | + + + + + + | Estimated | 21 (L)Comment: GFR <60: | mL/min/1.73m2 | EXTERNAL | | | GFR | CHRONIC KIDNEY DISEASE, | | LAB | | | | IF FOUND OVER A 3 MONTH | | | | | | PERIOD.GFR <15: KIDNEY | | | | | | FAILURE.FOR | | | | | | AMERICANS, MULTIPLY THE | | | | | | CALCULATED GFR BY | | | | | | 1.210.This eGFR is | | | | | | calculated using the | | | | | | MDRD IDMS traceable | | | | | | equation.Testing | | | | | | performed at [facility], [address] | | | | | | [facility], | | | | | | [place] [address] | | | | + + + + + + + + | Specimen | + + | Blood specimen | | (specimen) | + + + +---------+ + + | Performing | Address | City/State/Zipcode | Phone Number | | Organization | | | | + +---------+ + + | EXTERNAL LAB | | | | + +---------+ + + External Lab: CBC (01/05/2019 6:12 AM PDT) + + + + + + | Component | Value | Ref Range | Performed | Pathologist | | | | | At | Signature | + + + + + + | WBC | 8.75 | 3.80 - 11.00 | EXTERNAL | | | | | K/uL | LAB | | + + + + + + | RED CELL | 4.20 | 4.20 - 5.70 | EXTERNAL | | | COUNT | | M/uL | LAB | | + + + + + + | Hgb | 12.3 (L) | 13.2 - 17.0 | EXTERNAL | | | | | g/dL | LAB | | + + + + + + | Hematocrit, | 38.0 (L) | 39.0 - 50.0 % | EXTERNAL | | | POC | | | LAB | | + + + + + + | MCV | 90.6 | 80.0 - 100.0 fl | EXTERNAL | | | | | | LAB | | + + + + + + | MCH | 29.4 | 27.0 - 34.0 pg | EXTERNAL | | | | | | LAB | | + + + + + + | MCHC | 32.4 | 32.0 - 35.5 | EXTERNAL | | | | | g/dL | LAB | | + + + + + + | RDW-CV | 53.4 (H) | 37 - 53 fl | EXTERNAL | | | | | | LAB | | + + + + + + | Platelet | 201 | 150 - 400 K/uL | EXTERNAL | | | Count | | | LAB | | | Plasma | | | | | + + + + + + | MPV | 9.6 | fl | EXTERNAL | | | | | | LAB | | + + + + + + | Differentia | AUTOMATED | | EXTERNAL | | | l Type | | | LAB | | + + + + + + | % Segmented | 73.63 | % | EXTERNAL | | | | | | LAB | | | Neutrophils | | | | | + + + + + + | % | 5.91 | % | EXTERNAL | | | Lymphocytes | | | LAB | | + + + + + + | % Monocytes | 7.74 | % | EXTERNAL | | | | | | LAB | | + + + + + + | % | 12.04 | % | EXTERNAL | | | Eosinophils | | | LAB | | + + + + + + | % Basophils | 0.68 | % | EXTERNAL | | | | | | LAB | | + + + + + + | Absolute | 6.44 | 1.90 - 7.40 | EXTERNAL | | | Segmented | | K/uL | LAB | | | Neutrophils | | | | | + + + + + + | Absolute | 0.52 (L) | 1.00 - 3.90 | EXTERNAL | | | Lymphocytes | | K/uL | LAB | | + + + + + + | Absolute | 0.68 | 0.00 - 0.80 | EXTERNAL | | | Monocytes | | K/uL | LAB | | + + + + + + | Absolute | 1.05 (H) | 0.00 - 0.50 | EXTERNAL | | | Eosinophils | | K/uL | LAB | | + + + + + + | Absolute | 0.06Comment: Testing | 0.00 - 0.10 | EXTERNAL | | | Basophils | performed at [facility], [address] | K/uL | LAB | | | | [address], | | | | | | [place] [address] | | | | + + + + + + + + | Specimen | + + | Blood specimen | | (specimen) | + + + +---------+ + + | Performing | Address | City/State/Zipcode | Phone Number | | Organization | | | | + +---------+ + + | EXTERNAL LAB | | | | + +---------+ + + Magnesium (01/05/2019 6:12 AM PDT) + + + + + + | Component | Value | Ref Range | Performed | Pathologist | | | | | At | Signature | + + + + + + | Magnesium | 2.1Comment: Testing | 1.7 - 2.4 mg/dL | EXTERNAL | | | | performed at [facility], [address] | | LAB | | | | [address], | | | | | | [place] [address] | | | | + + + [...] + +---------+ + + Renal Function Panel (01/05/2019 6:12 AM PDT) + + + + + + | Component | Value | Ref Range | Performed | Pathologist | | | | | At | Signature | + + + + + + | Na | 141 | 135 - 145 | EXTERNAL | | | | | mmol/L | LAB | | + + + + + + | K | 4.0 | 3.5 - 4.9 | EXTERNAL | | | | | mmol/L | LAB | | + + + + + + | Cl | 96 (L) | 99 - 109 mmol/L | EXTERNAL | | | | | | LAB | | + + + + + + | CO2 | 37 (H) | 23 - 32 mmol/L | EXTERNAL | | | | | | LAB | | + + + + + + | Anion Gap | 12 | 5 - 20 mmol/L | EXTERNAL | | | | | | LAB | | + + + + + + | Glucose, | 99 | 65 - 99 mg/dL | EXTERNAL | | | Fasting | | | LAB | | + + + + + + | BUN | 86 (H) | 8 - 25 mg/dL | EXTERNAL | | | | | | LAB | | + + + + + + | Creatinine | 2.8 (H) | 0.70 - 1.30 | EXTERNAL | | | | | mg/dL | LAB | | + + + + + + | Calcium | 9.7 | 8.5 - 10.5 | EXTERNAL | | | | | mg/dL | LAB | | + + + + + + | Albumin | 2.9 (L) | 3.3 - 4.8 g/dL | EXTERNAL | | | | | | LAB | | + + + + + + | PHOSPHORUS | 4.0 | 2.3 - 4.8 mg/dL | EXTERNAL | | | | | | LAB | | + + + + + + | Estimated | 22 (L)Comment: GFR <60: | mL/min/1.73m2 | EXTERNAL | | | GFR | CHRONIC KIDNEY DISEASE, | | LAB | | | | IF FOUND OVER A 3 MONTH | | | | | | PERIOD.GFR <15: KIDNEY | | | | | | FAILURE.FOR | | | | | | AMERICANS, MULTIPLY THE | | | | | | CALCULATED GFR BY | | | | | | 1.210.This eGFR is | | | | | | calculated using the | | | | | | MDRD IDMS traceable | | | | | | equation.Testing | | | | | | performed at [facility], [address] | | | | | | [address] [facility], | | | | | | [place] [address] | | | | + + + + + + + + | Specimen | + + | | + + + +---------+ + + | Performing | Address | City/State/Zipcode | Phone Number | | Organization | | | | + +---------+ + + | EXTERNAL LAB | | | | + +---------+ + + External Lab: DORA (01/04/2019 5:49 AM PDT) + + + + + + | Component | Value | Ref Range | Performed | Pathologist | | | | | At | Signature | + + + + + + | WBC | 8.75 | 3.80 - 11.00 | EXTERNAL | | | | | K/uL | LAB | | + + + + + + | RED CELL | 4.03 (L) | 4.20 - 5.70 | EXTERNAL | | | COUNT | | M/uL | LAB | | + + + + + + | Hgb | 12.1 (L) | 13.2 - 17.0 | EXTERNAL | | | | | g/dL | LAB | | + + + + + + | Hematocrit, | 36.8 (L) | 39.0 - 50.0 % | EXTERNAL | | | POC | | | LAB | | + + + + + + | MCV | 91.4 | 80.0 - 100.0 fl | EXTERNAL | | | | | | LAB | | + + + + + + | MCH | 29.9 | 27.0 - 34.0 pg | EXTERNAL | | | | | | LAB | | + + + + + + | MCHC | 32.8 | 32.0 - 35.5 | EXTERNAL | | | | | g/dL | LAB | | + + + + + + | RDW-CV | 52.5 | 37 - 53 fl | EXTERNAL | | | | | | LAB | | + + + + + + | Platelet | 190 | 150 - 400 K/uL | EXTERNAL | | | Count | | | LAB | | | Plasma | | | | | + + + + + + | MPV | 9.2 | fl | EXTERNAL | | | | | | LAB | | + + + + + + | Differentia | AUTOMATED | | EXTERNAL | | | l Type | | | LAB | | + + + + + + | % Segmented | 75.27 | % | EXTERNAL | | | | | | LAB | | | Neutrophils | | | | | + + + + + + | % | 5.12 | % | EXTERNAL | | | Lymphocytes | | | LAB | | + + + + + + | % Monocytes | 6.27 | % | EXTERNAL | | | | | | LAB | | + + + + + + | % | 12.78 | % | EXTERNAL | | | Eosinophils | | | LAB | | + + + + + + | % Basophils | 0.56 | % | EXTERNAL | | | | | | LAB | | + + + + + + | Absolute | 6.58 | 1.90 - 7.40 | EXTERNAL | | | Segmented | | K/uL | LAB | | | Neutrophils | | | | | + + + + + + | Absolute | 0.45 (L) | 1.00 - 3.90 | EXTERNAL | | | Lymphocytes | | K/uL | LAB | | + + + + + + | Absolute | 0.55 | 0.00 - 0.80 | EXTERNAL | | | Monocytes | | K/uL | LAB | | + + + + + + | Absolute | 1.12 (H) | 0.00 - 0.50 | EXTERNAL | | | Eosinophils | | K/uL | LAB | | + + + + + + | Absolute | 0.05Comment: Testing | 0.00 - 0.10 | EXTERNAL | | | Basophils | performed at [facility], [address] | K/uL | LAB | | | | [address], | | | | | | [place] [address] | | | | + + + + + + + + | Specimen | + + | Blood specimen | | (specimen) | + + + +---------+ + + | Performing | Address | City/State/Zipcode | Phone Number | | Organization | | | | + +---------+ + + | EXTERNAL LAB | | | | + +---------+ + + Magnesium (01/04/2019 5:49 AM PDT) + + + + + + | Component | Value | Ref Range | Performed | Pathologist | | | | | At | Signature | + + + + + + | Magnesium | 2.1Comment: Testing | 1.7 - 2.4 mg/dL | EXTERNAL | | | | performed at [facility], [address] | | LAB | | | | [address], | | | | | | [place] [address] | | | | + + + [...] + +---------+ + + Renal Function Panel (01/04/2019 5:49 AM PDT) + + + + + + | Component | Value | Ref Range | Performed | Pathologist | | | | | At | Signature | + + + + + + | Na | 140 | 135 - 145 | EXTERNAL | | | | | mmol/L | LAB | | + + + + + + | K | 3.4 (L) | 3.5 - 4.9 | EXTERNAL | | | | | mmol/L | LAB | | + + + + + + | Cl | 98 (L) | 99 - 109 mmol/L | EXTERNAL | | | | | | LAB | | + + + + + + | CO2 | 35 (H) | 23 - 32 mmol/L | EXTERNAL | | | | | | LAB | | + + + + + + | Anion Gap | 10 | 5 - 20 mmol/L | EXTERNAL | | | | | | LAB | | + + + + + + | Glucose, | 91 | 65 - 99 mg/dL | EXTERNAL | | | Fasting | | | LAB | | + + + + + + | BUN | 76 (H) | 8 - 25 mg/dL | EXTERNAL | | | | | | LAB | | + + + + + + | Creatinine | 2.1 (H) | 0.70 - 1.30 | EXTERNAL | | | | | mg/dL | LAB | | + + + + + + | Calcium | 9.7 | 8.5 - 10.5 | EXTERNAL | | | | | mg/dL | LAB | | + + + + + + | Albumin | 3.0 (L) | 3.3 - 4.8 g/dL | EXTERNAL | | | | | | LAB | | + + + + + + | PHOSPHORUS | 3.1 | 2.3 - 4.8 mg/dL | EXTERNAL | | | | | | LAB | | + + + + + + | Estimated | 31 (L)Comment: GFR <60: | mL/min/1.73m2 | EXTERNAL | | | GFR | CHRONIC KIDNEY DISEASE, | | LAB | | | | IF FOUND OVER A 3 MONTH | | | | | | PERIOD.GFR <15: KIDNEY | | | | | | FAILURE.FOR | | | | | | AMERICANS, MULTIPLY THE | | | | | | CALCULATED GFR BY | | | | | | 1.210.This eGFR is | | | | | | calculated using the | | | | | | MDRD IDMS traceable | | | | | | equation.Testing | | | | | | performed at [facility], [address] | | | | | | [facility], | | | | | | [place] [address] | | | | + + + + + + + + | Specimen | + + | | + + + +---------+ + + | Performing | Address | City/State/Zipcode | Phone Number | | Organization | | | | + +---------+ + + | EXTERNAL LAB | | | | + +---------+ + + External Lab: CBC (01/03/2019 5:44 AM PDT) + + + + + + | Component | Value | Ref Range | Performed | Pathologist | | | | | At | Signature | + + + + + + | WBC | 7.89 | 3.80 - 11.00 | EXTERNAL | | | | | K/uL | LAB | | + + + + + + | RED CELL | 4.00 (L) | 4.20 - 5.70 | EXTERNAL | | | COUNT | | M/uL | LAB | | + + + + + + | Hgb | 12.0 (L) | 13.2 - 17.0 | EXTERNAL | | | | | g/dL | LAB | | + + + + + + | Hematocrit, | 36.7 (L) | 39.0 - 50.0 % | EXTERNAL | | | POC | | | LAB | | + + + + + + | MCV | 91.6 | 80.0 - 100.0 fl | EXTERNAL | | | | | | LAB | | + + + + + + | MCH | 30.0 | 27.0 - 34.0 pg | EXTERNAL | | | | | | LAB | | + + + + + + | MCHC | 32.8 | 32.0 - 35.5 | EXTERNAL | | | | | g/dL | LAB | | + + + + + + | RDW-CV | 53.4 (H) | 37 - 53 fl | EXTERNAL | | | | | | LAB | | + + + + + + | Platelet | 195 | 150 - 400 K/uL | EXTERNAL | | | Count | | | LAB | | | Plasma | | | | | + + + + + + | MPV | 9.0 | fl | EXTERNAL | | | | | | LAB | | + + + + + + | Differentia | AUTOMATED | | EXTERNAL | | | l Type | | | LAB | | + + + + + + | % Segmented | 73.16 | % | EXTERNAL | | | | | | LAB | | | Neutrophils | | | | | + + + + + + | % | 4.44 | % | EXTERNAL | | | Lymphocytes | | | LAB | | + + + + + + | % Monocytes | 6.90 | % | EXTERNAL | | | | | | LAB | | + + + + + + | % | 14.99 | % | EXTERNAL | | | Eosinophils | | | LAB | | + + + + + + | % Basophils | 0.51 | % | EXTERNAL | | | | | | LAB | | + + + + + + | Absolute | 5.77 | 1.90 - 7.40 | EXTERNAL | | | Segmented | | K/uL | LAB | | | Neutrophils | | | | | + + + + + + | Absolute | 0.35 (L) | 1.00 - 3.90 | EXTERNAL | | | Lymphocytes | | K/uL | LAB | | + + + + + + | Absolute | 0.54 | 0.00 - 0.80 | EXTERNAL | | | Monocytes | | K/uL | LAB | | + + + + + + | Absolute | 1.18 (H) | 0.00 - 0.50 | EXTERNAL | | | Eosinophils | | K/uL | LAB | | + + + + + + | Absolute | 0.04Comment: Testing | 0.00 - 0.10 | EXTERNAL | | | Basophils | performed at [facility], [address] | K/[address] | LAB | | | | [address], | | | | | | [place] [address] | | | | + + + + + + + + | Specimen | + + | Blood specimen | | (specimen) | + + + +---------+ + + | Performing | Address | City/State/Zipcode | Phone Number | | Organization | | | | + +---------+ + + | EXTERNAL LAB | | | | + +---------+ + + Magnesium (01/03/2019 5:44 AM PDT) + + + + + + | Component | Value | Ref Range | Performed | Pathologist | | | | | At | Signature | + + + + + + | Magnesium | 2.3Comment: Testing | 1.7 - 2.4 mg/dL | EXTERNAL | | | | performed at [facility], [address] | | LAB | | | | [address], | | | | | | [place] [address] | | | | + + + [...] + +---------+ + + Renal Function Panel (01/03/2019 5:44 AM PDT) + + + + + + | Component | Value | Ref Range | Performed | Pathologist | | | | | At | Signature | + + + + + + | Na | 142 | 135 - 145 | EXTERNAL | | | | | mmol/L | LAB | | + + + + + + | K | 3.7 | 3.5 - 4.9 | EXTERNAL | | | | | mmol/L | LAB | | + + + + + + | Cl | 100 | 99 - 109 mmol/L | EXTERNAL | | | | | | LAB | | + + + + + + | CO2 | 32 | 23 - 32 mmol/L | EXTERNAL | | | | | | LAB | | + + + + + + | Anion Gap | 14 | 5 - 20 mmol/L | EXTERNAL | | | | | | LAB | | + + + + + + | Glucose, | 93 | 65 - 99 mg/dL | EXTERNAL | | | Fasting | | | LAB | | + + + + + + | BUN | 79 (H) | 8 - 25 mg/dL | EXTERNAL | | | | | | LAB | | + + + + + + | Creatinine | 2.2 (H) | 0.70 - 1.30 | EXTERNAL | | | | | mg/dL | LAB | | + + + + + + | Calcium | 9.6 | 8.5 - 10.5 | EXTERNAL | | | | | mg/dL | LAB | | + + + + + + | Albumin | 2.8 (L) | 3.3 - 4.8 g/dL | EXTERNAL | | | | | | LAB | | + + + + + + | PHOSPHORUS | 3.2 | 2.3 - 4.8 mg/dL | EXTERNAL | | | | | | LAB | | + + + + + + | Estimated | 29 (L)Comment: GFR <60: | mL/min/1.73m2 | EXTERNAL | | | GFR | CHRONIC KIDNEY DISEASE, | | LAB | | | | IF FOUND OVER A 3 MONTH | | | | | | PERIOD.GFR <15: KIDNEY | | | | | | FAILURE.FOR | | | | | | AMERICANS, MULTIPLY THE | | | | | | CALCULATED GFR BY | | | | | | 1.210.This eGFR is | | | | | | calculated using the | | | | | | MDRD IDMS traceable | | | | | | equation.Testing | | | | | | performed at [facility], [address] | | | | | | [facility], | | | | | | [place] [address] | | | | + + + + + + + + | Specimen | + + | | + + + +---------+ + + | Performing | Address | City/State/Zipcode | Phone Number | | Organization | | | | + +---------+ + + | EXTERNAL LAB | | | | + +---------+ + + External Lab: CBC (01/02/2019 5:52 AM PDT) + + + + + + | Component | Value | Ref Range | Performed | Pathologist | | | | | At | Signature | + + + + + + | WBC | 8.72 | 3.80 - 11.00 | EXTERNAL | | | | | K/uL | LAB | | + + + + + + | RED CELL | 4.04 (L) | 4.20 - 5.70 | EXTERNAL | | | COUNT | | M/uL | LAB | | + + + + + + | Hgb | 11.9 (L) | 13.2 - 17.0 | EXTERNAL | | | | | g/dL | LAB | | + + + + + + | Hematocrit, | 37.0 (L) | 39.0 - 50.0 % | EXTERNAL | | | POC | | | LAB | | + + + + + + | MCV | 91.5 | 80.0 - 100.0 fl | EXTERNAL | | | | | | LAB | | + + + + + + | MCH | 29.5 | 27.0 - 34.0 pg | EXTERNAL | | | | | | LAB | | + + + + + + | MCHC | 32.2 | 32.0 - 35.5 | EXTERNAL | | | | | g/dL | LAB | | + + + + + + | RDW-CV | 53.4 (H) | 37 - 53 fl | EXTERNAL | | | | | | LAB | | + + + + + + | Platelet | 211 | 150 - 400 K/uL | EXTERNAL | | | Count | | | LAB | | | Plasma | | | | | + + + + + + | MPV | 9.4 | fl | EXTERNAL | | | | | | LAB | | + + + + + + | Differentia | AUTOMATED | | EXTERNAL | | | l Type | | | LAB | | + + + + + + | % Segmented | 73.05 | % | EXTERNAL | | | | | | LAB | | | Neutrophils | | | | | + + + + + + | % | 4.71 | % | EXTERNAL | | | Lymphocytes | | | LAB | | + + + + + + | % Monocytes | 8.21 | % | EXTERNAL | | | | | | LAB | | + + + + + + | % | 13.03 | % | EXTERNAL | | | Eosinophils | | | LAB | | + + + + + + | % Basophils | 1.00 | % | EXTERNAL | | | | | | LAB | | + + + + + + | Absolute | 6.37 | 1.90 - 7.40 | EXTERNAL | | | Segmented | | K/uL | LAB | | | Neutrophils | | | | | + + + + + + | Absolute | 0.41 (L) | 1.00 - 3.90 | EXTERNAL | | | Lymphocytes | | K/uL | LAB | | + + + + + + | Absolute | 0.72 | 0.00 - 0.80 | EXTERNAL | | | Monocytes | | K/uL | LAB | | + + + + + + | Absolute | 1.14 (H) | 0.00 - 0.50 | EXTERNAL | | | Eosinophils | | K/uL | LAB | | + + + + + + | Absolute | 0.09Comment: Testing | 0.00 - 0.10 | EXTERNAL | | | Basophils | performed at [facility], [address] | [address] | LAB | | | | [address], | | | | | | [place] [address] | | | | + + + + + + + + | Specimen | + + | Blood specimen | | (specimen) | + + + +---------+ + + | Performing | Address | City/State/Zipcode | Phone Number | | Organization | | | | + +---------+ + + | EXTERNAL LAB | | | | + +---------+ + + Magnesium (01/02/2019 5:52 AM PDT) + + + + + + | Component | Value | Ref Range | Performed | Pathologist | | | | | At | Signature | + + + + + + | Magnesium | 2.3Comment: Testing | 1.7 - 2.4 mg/dL | EXTERNAL | | | | performed at [facility], [address] | | LAB | | | | [address], | | | | | | [place] [address] | | | | + + + [...] + +---------+ + + Renal Function Panel (01/02/2019 5:52 AM PDT) + + + + + + | Component | Value | Ref Range | Performed | Pathologist | | | | | At | Signature | + + + + + + | Na | 139 | 135 - 145 | EXTERNAL | | | | | mmol/L | LAB | | + + + + + + | K | 3.5 | 3.5 - 4.9 | EXTERNAL | | | | | mmol/L | LAB | | + + + + + + | Cl | 97 (L) | 99 - 109 mmol/L | EXTERNAL | | | | | | LAB | | + + + + + + | CO2 | 30 | 23 - 32 mmol/L | EXTERNAL | | | | | | LAB | | + + + + + + | Anion Gap | 16 | 5 - 20 mmol/L | EXTERNAL | | | | | | LAB | | + + + + + + | Glucose, | 92 | 65 - 99 mg/dL | EXTERNAL | | | Fasting | | | LAB | | + + + + + + | BUN | 86 (H) | 8 - 25 mg/dL | EXTERNAL | | | | | | LAB | | + + + + + + | Creatinine | 2.9 (H) | 0.70 - 1.30 | EXTERNAL | | | | | mg/dL | LAB | | + + + + + + | Calcium | 9.4 | 8.5 - 10.5 | EXTERNAL | | | | | mg/dL | LAB | | + + + + + + | Albumin | 2.7 (L) | 3.3 - 4.8 g/dL | EXTERNAL | | | | | | LAB | | + + + + + + | PHOSPHORUS | 4.2 | 2.3 - 4.8 mg/dL | EXTERNAL | | | | | | LAB | | + + + + + + | Estimated | 21 (L)Comment: GFR <60: | mL/min/1.73m2 | EXTERNAL | | | GFR | CHRONIC KIDNEY DISEASE, | | LAB | | | | IF FOUND OVER A 3 MONTH | | | | | | PERIOD.GFR <15: KIDNEY | | | | | | FAILURE.FOR | | | | | | AMERICANS, MULTIPLY THE | | | | | | CALCULATED GFR BY | | | | | | 1.210.This eGFR is | | | | | | calculated using the | | | | | | MDRD IDMS traceable | | | | | | equation.Testing | | | | | | performed at [facility], [address] | | | | | | [facility], | | | | | | [place] [address] | | | | + + + + + + + + | Specimen | + + | | + + + +---------+ + + | Performing | Address | City/State/Zipcode | Phone Number | | Organization | | | | + +---------+ + + | EXTERNAL LAB | | | | + +---------+ + + External Lab: CBC (01/01/2019 5:42 AM PDT) + + + + + + | Component | Value | Ref Range | Performed | Pathologist | | | | | At | Signature | + + + + + + | WBC | 9.46 | 3.80 - 11.00 | EXTERNAL | | | | | K/uL | LAB | | + + + + + + | RED CELL | 4.10 (L) | 4.20 - 5.70 | EXTERNAL | | | COUNT | | M/uL | LAB | | + + + + + + | Hgb | 12.2 (L) | 13.2 - 17.0 | EXTERNAL | | | | | g/dL | LAB | | + + + + + + | Hematocrit, | 37.3 (L) | 39.0 - 50.0 % | EXTERNAL | | | POC | | | LAB | | + + + + + + | MCV | 90.8 | 80.0 - 100.0 fl | EXTERNAL | | | | | | LAB | | + + + + + + | MCH | 29.8 | 27.0 - 34.0 pg | EXTERNAL | | | | | | LAB | | + + + + + + | MCHC | 32.8 | 32.0 - 35.5 | EXTERNAL | | | | | g/dL | LAB | | + + + + + + | RDW-CV | 52.5 | 37 - 53 fl | EXTERNAL | | | | | | LAB | | + + + + + + | Platelet | 220 | 150 - 400 K/uL | EXTERNAL | | | Count | | | LAB | | | Plasma | | | | | + + + + + + | MPV | 9.3 | fl | EXTERNAL | | | | | | LAB | | + + + + + + | Differentia | AUTOMATED | | EXTERNAL | | | l Type | | | LAB | | + + + + + + | % Segmented | 73.95 | % | EXTERNAL | | | | | | LAB | | | Neutrophils | | | | | + + + + + + | % | 4.80 | % | EXTERNAL | | | Lymphocytes | | | LAB | | + + + + + + | % Monocytes | 6.69 | % | EXTERNAL | | | | | | LAB | | + + + + + + | % | 13.89 | % | EXTERNAL | | | Eosinophils | | | LAB | | + + + + + + | % Basophils | 0.67 | % | EXTERNAL | | | | | | LAB | | + + + + + + | Absolute | 6.99 | 1.90 - 7.40 | EXTERNAL | | | Segmented | | K/uL | LAB | | | Neutrophils | | | | | + + + + + + | Absolute | 0.45 (L) | 1.00 - 3.90 | EXTERNAL | | | Lymphocytes | | K/uL | LAB | | + + + + + + | Absolute | 0.63 | 0.00 - 0.80 | EXTERNAL | | | Monocytes | | K/uL | LAB | | + + + + + + | Absolute | 1.31 (H) | 0.00 - 0.50 | EXTERNAL | | | Eosinophils | | K/uL | LAB | | + + + + + + | Absolute | 0.06Comment: Testing | 0.00 - 0.10 | EXTERNAL | | | Basophils | performed at [facility], [address] | [address] | LAB | | | | [address], | | | | | | [place] [address] | | | | + + + + + + + + | Specimen | + + | Blood specimen | | (specimen) | + + + +---------+ + + | Performing | Address | City/State/Zipcode | Phone Number | | Organization | | | | + +---------+ + + | EXTERNAL LAB | | | | + +---------+ + + Magnesium (01/01/2019 5:42 AM PDT) + + + + + + | Component | Value | Ref Range | Performed | Pathologist | | | | | At | Signature | + + + + + + | Magnesium | 2.3Comment: Testing | 1.7 - 2.4 mg/dL | EXTERNAL | | | | performed at [facility], [address] | | LAB | | | | [address], | | | | | | [place] [address] | | | | + + + [...] + +---------+ + + Renal Function Panel (01/01/2019 5:42 AM PDT) + + + + + + | Component | Value | Ref Range | Performed | Pathologist | | | | | At | Signature | + + + + + + | Na | 138 | 135 - 145 | EXTERNAL | | | | | mmol/L | LAB | | + + + + + + | K | 3.4 (L) | 3.5 - 4.9 | EXTERNAL | | | | | mmol/L | LAB | | + + + + + + | Cl | 93 (L) | 99 - 109 mmol/L | EXTERNAL | | | | | | LAB | | + + + + + + | CO2 | 33 (H) | 23 - 32 mmol/L | EXTERNAL | | | | | | LAB | | + + + + + + | Anion Gap | 15 | 5 - 20 mmol/L | EXTERNAL | | | | | | LAB | | + + + + + + | Glucose, | 97 | 65 - 99 mg/dL | EXTERNAL | | | Fasting | | | LAB | | + + + + + + | BUN | 84 (H) | 8 - 25 mg/dL | EXTERNAL | | | | | | LAB | | + + + + + + | Creatinine | 3.3 (H) | 0.70 - 1.30 | EXTERNAL | | | | | mg/dL | LAB | | + + + + + + | Calcium | 9.2 | 8.5 - 10.5 | EXTERNAL | | | | | mg/dL | LAB | | + + + + + + | Albumin | 2.9 (L) | 3.3 - 4.8 g/dL | EXTERNAL | | | | | | LAB | | + + + + + + | PHOSPHORUS | 4.0 | 2.3 - 4.8 mg/dL | EXTERNAL | | | | | | LAB | | + + + + + + | Estimated | 18 (L)Comment: GFR <60: | mL/min/1.73m2 | EXTERNAL | | | GFR | CHRONIC KIDNEY DISEASE, | | LAB | | | | IF FOUND OVER A 3 MONTH | | | | | | PERIOD.GFR <15: KIDNEY | | | | | | FAILURE.FOR | | | | | | AMERICANS, MULTIPLY THE | | | | | | CALCULATED GFR BY | | | | | | 1.210.This eGFR is | | | | | | calculated using the | | | | | | MDRD IDMS traceable | | | | | | equation.Testing | | | | | | performed at [facility], [address] | | | | | | [facility], | | | | | | [place] [address] | | | | + + + + + + + + | Specimen | + + | Blood specimen | | (specimen) | + + + +---------+ + + | Performing | Address | City/State/Zipcode | Phone Number | | Organization | | | | + +---------+ + + | EXTERNAL LAB | | | | + +---------+ + + Procalcitonin (12/31/2018 5:21 AM PDT) + + + + + + | Component | Value | Ref Range | Performed | Pathologist | | | | | At | Signature | + + + + + + | PROCALCITON | 0.16Comment: | ng/mL | EXTERNAL | | | IN | INTERPRETIVE | | LAB | | | | INFORMATION: | | | | | | PROCALCITONIN PCT <= | | | | | | 0.5 ng/mL: Low risk | | | | | | for progression to | | | | | | severe systemic | | | | | | bacterial infection | | | | | | (severe sepsis/septic | | | | | | shock). Does not | | | | | | exclude an infection, | | | | | | because localized | | | | | | infections may be | | | | | | associated with such low | | | | | | levels. If PCT is | | | | | | measured very early | | | | | | after bacterial | | | | | | challenge (usually <6 | | | | | | hours), results may | | | | | | still be low and | | | | | | should re-assess PCT | | | | | | 6-24 hours later. PCT | | | | | | >0.5 and <= 2 ng/mL: | | | | | | Moderate risk for | | | | | | progression to severe | | | | | | systemic infection | | | | | | (severe sepsis/septic | | | | | | shock). Other | | | | | | conditions are known | | | | | | to elevate PCT, patient | | | | | | should be closely | | | | | | monitored both | | | | | | clinically and by | | | | | | re-assessing PCT | | | | | | within 6-24 hours. PCT > | | | | | | 2 ng/mL: High | | | | | | likelihood for | | | | | | progression to severe | | | | | | systemic bacterial | | | | | | infection (severe | | | | | | sepsis/septic shock). | | | | | | PCT >= 10 ng/mL: | | | | | | High likelihood of | | | | | | severe sepsis or septic | | | | | | shock.Testing performed | | | | | | at [facility];[address] | | [address];[place] [address] | | | | + + + + + + + + | Specimen | + + | | + + + +---------+ + + | Performing | Address | City/State/Zipcode | Phone Number | | Organization | | | | + +---------+ + + | EXTERNAL LAB | | | | + +---------+ + + External Lab: CBC (12/31/2018 5:21 AM PDT) + + + + + + | Component | Value | Ref Range | Performed | Pathologist | | | | | At | Signature | + + + + + + | WBC | 9.69 | 3.80 - 11.00 | EXTERNAL | | | | | K/uL | LAB | | + + + + + + | RED CELL | 4.25 | 4.20 - 5.70 | EXTERNAL | | | COUNT | | M/uL | LAB | | + + + + + + | Hgb | 12.7 (L) | 13.2 - 17.0 | EXTERNAL | | | | | g/dL | LAB | | + + + + + + | Hematocrit, | 38.7 (L) | 39.0 - 50.0 % | EXTERNAL | | | POC | | | LAB | | + + + + + + | MCV | 91.1 | 80.0 - 100.0 fl | EXTERNAL | | | | | | LAB | | + + + + + + | MCH | 29.8 | 27.0 - 34.0 pg | EXTERNAL | | | | | | LAB | | + + + + + + | MCHC | 32.7 | 32.0 - 35.5 | EXTERNAL | | | | | g/dL | LAB | | + + + + + + | RDW-CV | 52.9 | 37 - 53 fl | EXTERNAL | | | | | | LAB | | + + + + + + | Platelet | 220 | 150 - 400 K/uL | EXTERNAL | | | Count | | | LAB | | | Plasma | | | | | + + + + + + | MPV | 9.1 | fl | EXTERNAL | | | | | | LAB | | + + + + + + | Differentia | AUTOMATED | | EXTERNAL | | | l Type | | | LAB | | + + + + + + | % Segmented | 74.32 | % | EXTERNAL | | | | | | LAB | | | Neutrophils | | | | | + + + + + + | % | 4.30 | % | EXTERNAL | | | Lymphocytes | | | LAB | | + + + + + + | % Monocytes | 7.35 | % | EXTERNAL | | | | | | LAB | | + + + + + + | % | 13.38 | % | EXTERNAL | | | Eosinophils | | | LAB | | + + + + + + | % Basophils | 0.65 | % | EXTERNAL | | | | | | LAB | | + + + + + + | Absolute | 7.20 | 1.90 - 7.40 | EXTERNAL | | | Segmented | | K/uL | LAB | | | Neutrophils | | | | | + + + + + + | Absolute | 0.42 (L) | 1.00 - 3.90 | EXTERNAL | | | Lymphocytes | | K/uL | LAB | | + + + + + + | Absolute | 0.71 | 0.00 - 0.80 | EXTERNAL | | | Monocytes | | K/uL | LAB | | + + + + + + | Absolute | 1.30 (H) | 0.00 - 0.50 | EXTERNAL | | | Eosinophils | | K/uL | LAB | | + + + + + + | Absolute | 0.06Comment: Testing | 0.00 - 0.10 | EXTERNAL | | | Basophils | performed at [facility], [address] | K/[address] | LAB | | | | [address], | | | | | | [place] [address] | | | | + + + + + + + + | Specimen | + + | Blood specimen | | (specimen) | + + + +---------+ + + | Performing | Address | City/State/Zipcode | Phone Number | | Organization | | | | + +---------+ + + | EXTERNAL LAB | | | | + +---------+ + + Magnesium (12/31/2018 5:21 AM PDT) + + + + + + | Component | Value | Ref Range | Performed | Pathologist | | | | | At | Signature | + + + + + + | Magnesium | 2.5 (H)Comment: Testing | 1.7 - 2.4 mg/dL | EXTERNAL | | | | performed at [facility], [address] | | LAB | | | | [address], | | | | | | [place] [address] | | | | + + + [...] + +---------+ + + Renal Function Panel (12/31/2018 5:21 AM PDT) + + + + + + | Component | Value | Ref Range | Performed | Pathologist | | | | | At | Signature | + + + + + + | Na | 139 | 135 - 145 | EXTERNAL | | | | | mmol/L | LAB | | + + + + + + | K | 3.6 | 3.5 - 4.9 | EXTERNAL | | | | | mmol/L | LAB | | + + + + + + | Cl | 96 (L) | 99 - 109 mmol/L | EXTERNAL | | | | | | LAB | | + + + + + + | CO2 | 33 (H) | 23 - 32 mmol/L | EXTERNAL | | | | | | LAB | | + + + + + + | Anion Gap | 14 | 5 - 20 mmol/L | EXTERNAL | | | | | | LAB | | + + + + + + | Glucose, | 92 | 65 - 99 mg/dL | EXTERNAL | | | Fasting | | | LAB | | + + + + + + | BUN | 77 (H) | 8 - 25 mg/dL | EXTERNAL | | | | | | LAB | | + + + + + + | Creatinine | 3.0 (H) | 0.70 - 1.30 | EXTERNAL | | | | | mg/dL | LAB | | + + + + + + | Calcium | 9.1 | 8.5 - 10.5 | EXTERNAL | | | | | mg/dL | LAB | | + + + + + + | Albumin | 3.0 (L) | 3.3 - 4.8 g/dL | EXTERNAL | | | | | | LAB | | + + + + + + | PHOSPHORUS | 4.6 | 2.3 - 4.8 mg/dL | EXTERNAL | | | | | | LAB | | + + + + + + | Estimated | 20 (L)Comment: GFR <60: | mL/min/1.73m2 | EXTERNAL | | | GFR | CHRONIC KIDNEY DISEASE, | | LAB | | | | IF FOUND OVER A 3 MONTH | | | | | | PERIOD.GFR <15: KIDNEY | | | | | | FAILURE.FOR | | | | | | AMERICANS, MULTIPLY THE | | | | | | CALCULATED GFR BY | | | | | | 1.210.This eGFR is | | | | | | calculated using the | | | | | | MDRD IDMS traceable | | | | | | equation.Testing | | | | | | performed at [facility], [address] | | | | | | [address], | | | | | | [place] [address] | | | | + + + + + + + + | Specimen | + + | | + + + +---------+ + + | Performing | Address | City/State/Zipcode | Phone Number | | Organization | | | | + +---------+ + + | EXTERNAL LAB | | | | + +---------+ + + VAS Ankle Brachial Index Resting (12/30/2018 12:31 PM PDT) + + | Specimen | + + | | + + + + + | Impressions | Performed At | + + + | *ABIs and TBIs are within normal limits bilaterally. *Dampening of | | | the waveform of the left great toe. The left TBI could be | | | artifactually elevated. Ankle Brachial Indices Categorization of | | | Disease INDEX EXTENT OF DISEASE > 1.0 | | | Normal .90-.99 Mild / Borderline .60-.89 | | | Moderate .50-.59 Severe < .49 | | | Severe Signed by: Jeffery Ramos Date/Time: | | | 12/30/2018 12:43 PM | | + + + + + + | Narrative | Performed At | + + + | LOWER EXTREMITY ARTERIAL SCAN, ANKLE BRACHIAL INDEX CLINICAL | | | INFORMATION: Compression dressings, please eval to see if vessels | | | will support this----of note pt [...] | | Pedis: 132 Posterior Tibial: 119 LULU: 1.04 Waveforms: Triphasic | | | Great toe: 126 TBI: 1.11 LEFT Dorsalis Pedis: 143 Posterior | | | Tibial: 130 LULU: 1.14 Waveforms: Triphasic Great toe: 102. | | | Dampening of the waveform of the left great toe. TBI: 0.89 | | + + + + + | Procedure Note | + + | Feliz, Rad Conversion - 06/01/2019 8:17 PM PDT LOWER EXTREMITY ARTERIAL SCAN, ANKLE [...] of | | the left great toe.TBI: 0.89IMPRESSION: *ABIs and TBIs are within normal limits | [...] Pedis: 132 | |Posterior Tibial: 119 | |LULU: 1.04 | |Waveforms: Triphasic | |Great toe: 126 | |TBI: 1.11 | |LEFT | |Dorsalis Pedis: 143 | |Posterior Tibial: 130 | |LULU: 1.14 | |Waveforms: Triphasic | |Great toe: [...] Date/Time: 12/30/2018 12:43 PM | + + External Lab: CBC (12/30/2018 5:28 AM PDT) + + + + + + | Component | Value | Ref Range | Performed | Pathologist | | | | | At | Signature | + + + + + + | WBC | 9.71 | 3.80 - 11.00 | EXTERNAL | | | | | K/uL | LAB | | + + + + + + | RED CELL | 4.17 (L) | 4.20 - 5.70 | EXTERNAL | | | COUNT | | M/uL | LAB | | + + + + + + | Hgb | 12.5 (L) | 13.2 - 17.0 | EXTERNAL | | | | | g/dL | LAB | | + + + + + + | Hematocrit, | 38.0 (L) | 39.0 - 50.0 % | EXTERNAL | | | POC | | | LAB | | + + + + + + | MCV | 91.1 | 80.0 - 100.0 fl | EXTERNAL | | | | | | LAB | | + + + + + + | MCH | 29.8 | 27.0 - 34.0 pg | EXTERNAL | | | | | | LAB | | + + + + + + | MCHC | 32.7 | 32.0 - 35.5 | EXTERNAL | | | | | g/dL | LAB | | + + + + + + | RDW-CV | 52.9 | 37 - 53 fl | EXTERNAL | | | | | | LAB | | + + + + + + | Platelet | 210 | 150 - 400 K/uL | EXTERNAL | | | Count | | | LAB | | | Plasma | | | | | + + + + + + | MPV | 9.4 | fl | EXTERNAL | | | | | | LAB | | + + + + + + | Differentia | AUTOMATED | | EXTERNAL | | | l Type | | | LAB | | + + + + + + | % Segmented | 77.17 | % | EXTERNAL | | | | | | LAB | | | Neutrophils | | | | | + + + + + + | % | 4.84 | % | EXTERNAL | | | Lymphocytes | | | LAB | | + + + + + + | % Monocytes | 8.10 | % | EXTERNAL | | | | | | LAB | | + + + + + + | % | 9.40 | % | EXTERNAL | | | Eosinophils | | | LAB | | + + + + + + | % Basophils | 0.49 | % | EXTERNAL | | | | | | LAB | | + + + + + + | Absolute | 7.49 (H) | 1.90 - 7.40 | EXTERNAL | | | Segmented | | K/uL | LAB | | | Neutrophils | | | | | + + + + + + | Absolute | 0.47 (L) | 1.00 - 3.90 | EXTERNAL | | | Lymphocytes | | K/uL | LAB | | + + + + + + | Absolute | 0.79 | 0.00 - 0.80 | EXTERNAL | | | Monocytes | | K/uL | LAB | | + + + + + + | Absolute | 0.91 (H) | 0.00 - 0.50 | EXTERNAL | | | Eosinophils | | K/uL | LAB | | + + + + + + | Absolute | 0.05Comment: Testing | 0.00 - 0.10 | EXTERNAL | | | Basophils | performed at [facility], [address] | K/[address] | LAB | | | | [address], | | | | | | [place] [address] | | | | + + + + + + + + | Specimen | + + | Blood specimen | | (specimen) | + + + +---------+ + + | Performing | Address | City/State/Zipcode | Phone Number | | Organization | | | | + +---------+ + + | EXTERNAL LAB | | | | + +---------+ + + Magnesium (12/30/2018 5:28 AM PDT) + + + + + + | Component | Value | Ref Range | Performed | Pathologist | | | | | At | Signature | + + + + + + | Magnesium | 1.9Comment: Testing | 1.7 - 2.4 mg/dL | EXTERNAL | | | | performed at [facility], [address] | | LAB | | | | [address], | | | | | | [place] [address] | | | | + + + [...] + +---------+ + + Renal Function Panel (12/30/2018 5:28 AM PDT) + + + + + + | Component | Value | Ref Range | Performed | Pathologist | | | | | At | Signature | + + + + + + | Na | 139 | 135 - 145 | EXTERNAL | | | | | mmol/L | LAB | | + + + + + + | K | 3.3 (L) | 3.5 - 4.9 | EXTERNAL | | | | | mmol/L | LAB | | + + + + + + | Cl | 94 (L) | 99 - 109 mmol/L | EXTERNAL | | | | | | LAB | | + + + + + + | CO2 | 34 (H) | 23 - 32 mmol/L | EXTERNAL | | | | | | LAB | | + + + + + + | Anion Gap | 14 | 5 - 20 mmol/L | EXTERNAL | | | | | | LAB | | + + + + + + | Glucose, | 93 | 65 - 99 mg/dL | EXTERNAL | | | Fasting | | | LAB | | + + + + + + | BUN | 65 (H) | 8 - 25 mg/dL | EXTERNAL | | | | | | LAB | | + + + + + + | Creatinine | 2.7 (H) | 0.70 - 1.30 | EXTERNAL | | | | | mg/dL | LAB | | + + + + + + | Calcium | 8.9 | 8.5 - 10.5 | EXTERNAL | | | | | mg/dL | LAB | | + + + + + + | Albumin | 3.0 (L) | 3.3 - 4.8 g/dL | EXTERNAL | | | | | | LAB | | + + + + + + | PHOSPHORUS | 3.8 | 2.3 - 4.8 mg/dL | EXTERNAL | | | | | | LAB | | + + + + + + | Estimated | 23 (L)Comment: GFR <60: | mL/min/1.73m2 | EXTERNAL | | | GFR | CHRONIC KIDNEY DISEASE, | | LAB | | | | IF FOUND OVER A 3 MONTH | | | | | | PERIOD.GFR <15: KIDNEY | | | | | | FAILURE.FOR | | | | | | AMERICANS, MULTIPLY THE | | | | | | CALCULATED GFR BY | | | | | | 1.210.This eGFR is | | | | | | calculated using the | | | | | | MDRD IDMS traceable | | | | | | equation.Testing | | | | | | performed at [facility], [address] | | | | | | [facility], | | | | | | [place] [address] | | | | + + + + + + + + | Specimen | + + | | + + + +---------+ + + | Performing | Address | City/State/Zipcode | Phone Number | | Organization | | | | + +---------+ + + | EXTERNAL LAB | | | | + +---------+ + + External Lab: CBC (12/29/2018 5:55 AM PDT) + + + + + + | Component | Value | Ref Range | Performed | Pathologist | | | | | At | Signature | + + + + + + | WBC | 10.15 | 3.80 - 11.00 | EXTERNAL | | | | | K/uL | LAB | | + + + + + + | RED CELL | 4.04 (L) | 4.20 - 5.70 | EXTERNAL | | | COUNT | | M/uL | LAB | | + + + + + + | Hgb | 12.0 (L) | 13.2 - 17.0 | EXTERNAL | | | | | g/dL | LAB | | + + + + + + | Hematocrit, | 36.8 (L) | 39.0 - 50.0 % | EXTERNAL | | | POC | | | LAB | | + + + + + + | MCV | 91.2 | 80.0 - 100.0 fl | EXTERNAL | | | | | | LAB | | + + + + + + | MCH | 29.8 | 27.0 - 34.0 pg | EXTERNAL | | | | | | LAB | | + + + + + + | MCHC | 32.7 | 32.0 - 35.5 | EXTERNAL | | | | | g/dL | LAB | | + + + + + + | RDW-CV | 53.8 (H) | 37 - 53 fl | EXTERNAL | | | | | | LAB | | + + + + + + | Platelet | 197 | 150 - 400 K/uL | EXTERNAL | | | Count | | | LAB | | | Plasma | | | | | + + + + + + | MPV | 9.0 | fl | EXTERNAL | | | | | | LAB | | + + + + + + | Differentia | AUTOMATED | | EXTERNAL | | | l Type | | | LAB | | + + + + + + | % Segmented | 80.14 | % | EXTERNAL | | | | | | LAB | | | Neutrophils | | | | | + + + + + + | % | 3.33 | % | EXTERNAL | | | Lymphocytes | | | LAB | | + + + + + + | % Monocytes | 6.85 | % | EXTERNAL | | | | | | LAB | | + + + + + + | % | 9.06 | % | EXTERNAL | | | Eosinophils | | | LAB | | + + + + + + | % Basophils | 0.62 | % | EXTERNAL | | | | | | LAB | | + + + + + + | Absolute | 8.13 (H) | 1.90 - 7.40 | EXTERNAL | | | Segmented | | K/uL | LAB | | | Neutrophils | | | | | + + + + + + | Absolute | 0.34 (L) | 1.00 - 3.90 | EXTERNAL | | | Lymphocytes | | K/uL | LAB | | + + + + + + | Absolute | 0.70 | 0.00 - 0.80 | EXTERNAL | | | Monocytes | | K/uL | LAB | | + + + + + + | Absolute | 0.92 (H) | 0.00 - 0.50 | EXTERNAL | | | Eosinophils | | K/uL | LAB | | + + + + + + | Absolute | 0.06Comment: Testing | 0.00 - 0.10 | EXTERNAL | | | Basophils | performed at [facility], [address] | [address] | LAB | | | | [address], | | | | | | [place] [address] | | | | + + + + + + + + | Specimen | + + | Blood specimen | | (specimen) | + + + +---------+ + + | Performing | Address | City/State/Zipcode | Phone Number | | Organization | | | | + +---------+ + + | EXTERNAL LAB | | | | + +---------+ + + Magnesium (12/29/2018 5:55 AM PDT) + + + + + + | Component | Value | Ref Range | Performed | Pathologist | | | | | At | Signature | + + + + + + | Magnesium | 1.9Comment: Testing | 1.7 - 2.4 mg/dL | EXTERNAL | | | | performed at [facility], [address] | | LAB | | | | [address], | | | | | | [place] [address] | | | | + + + + + + + + | Specimen | + + | Blood specimen | | (specimen) | + + + +---------+ + + | Performing | Address | City/State/Zipcode | Phone Number | | Organization | | | | + +---------+ + + | EXTERNAL LAB | | | | + +---------+ + + Basic Metabolic Panel (12/29/2018 5:55 AM PDT) + + + + + + | Component | Value | Ref Range | Performed | Pathologist | | | | | At | Signature | + + + + + + | Na | 140 | 135 - 145 | EXTERNAL | | | | | mmol/L | LAB | | + + + + + + | K | 3.6 | 3.5 - 4.9 | EXTERNAL | | | | | mmol/L | LAB | | + + + + + + | Cl | 98 (L) | 99 - 109 mmol/L | EXTERNAL | | | | | | LAB | | + + + + + + | CO2 | 31 | 23 - 32 mmol/L | EXTERNAL | | | | | | LAB | | + + + + + + | Anion Gap | 15 | 5 - 20 mmol/L | EXTERNAL | | | | | | LAB | | + + + + + + | Glucose, | 91 | 65 - 99 mg/dL | EXTERNAL | | | Fasting | | | LAB | | + + + + + + | BUN | 48 (H) | 8 - 25 mg/dL | EXTERNAL | | | | | | LAB | | + + + + + + | Creatinine | 2.2 (H) | 0.70 - 1.30 | EXTERNAL | | | | | mg/dL | LAB | | + + + + + + | BUN/Creatin | 22 | | EXTERNAL | | | ine Ratio | | | LAB | | + + + + + + | Calcium | 9.4 | 8.5 - 10.5 | EXTERNAL | | | | | mg/dL | LAB | | + + + + + + | Estimated | 29 (L)Comment: GFR <60: | mL/min/1.73m2 | EXTERNAL | | | GFR | CHRONIC KIDNEY DISEASE, | | LAB | | | | IF FOUND OVER A 3 MONTH | | | | | | PERIOD.GFR <15: KIDNEY | | | | | | FAILURE.FOR | | | | | | AMERICANS, MULTIPLY THE | | | | | | CALCULATED GFR BY | | | | | | 1.210.This eGFR is | | | | | | calculated using the | | | | | | MDRD IDMS traceable | | | | | | equation.Testing | | | | | | performed at [facility], [address] | | | | | | [facility], | | | | | | [place] [address] | | | | + + + + + + + + | Specimen | + + | Blood specimen | | (specimen) | + + + +---------+ + + | Performing | Address | City/State/Zipcode | Phone Number | | Organization | | | | + +---------+ + + | EXTERNAL LAB | | | | + +---------+ + + NM Myocardial Perfusion Mult SPECT (12/28/2018 1:35 PM PDT) + + | Specimen | + + | | + + + + + | Impressions | Performed At | + + + | 1. Mild heterogeneity of uptake on both rest and stress images | | | probably related to patient body habitus/artifact. No definite | | | evidence of ischemia or infarct. [...] MYOCARDIAL PERFUSION STUDY PROTOCOL: STANDARD BRITT | | | EXERCISE. CLINICAL INFORMATION: Dyspnea, elevated troponin, | | | cardiomyopathy, kidney disease, congestive heart [...] images. This is probably related to patient | | | body habitus. No defined evidence of infarct. There is slight | | | increased thinning of the proximal inferior wall on stress images, | | | probably related to diaphragmatic artifact. Minimal increased | | | thinning of the proximal lateral wall with stress, also likely | | | artifactual. I doubt ischemia. Gated Study: Rest LVEF 49%. Stress | | | LVEF 62%. Volumes: Rest EDV 132 mL. Rest ESV 67 mL. Stress EDV | | | 131 mL. Stress ESV 50 mL. Wall Motion: LV wall motion is normal at | | | rest and with stress. | | + + + + + | Procedure Note | + + | Edgardo Piper Conversion - 06/01/2019 8:17 PM PDT REST/STRESS MYOCARDIAL PERFUSION STUDY | [...] Date/Time: 12/28/2018 1:56 PM | + + External Lab: CBC (12/28/2018 5:18 AM PDT) + + + + + + | Component | Value | Ref Range | Performed | Pathologist | | | | | At | Signature | + + + + + + | WBC | 8.35 | 3.80 - 11.00 | EXTERNAL | | | | | K/uL | LAB | | + + + + + + | RED CELL | 3.40 (L) | 4.20 - 5.70 | EXTERNAL | | | COUNT | | M/uL | LAB | | + + + + + + | Hgb | 10.4 (L) | 13.2 - 17.0 | EXTERNAL | | | | | g/dL | LAB | | + + + + + + | Hematocrit, | 30.9 (L) | 39.0 - 50.0 % | EXTERNAL | | | POC | | | LAB | | + + + + + + | MCV | 91.1 | 80.0 - 100.0 fl | EXTERNAL | | | | | | LAB | | + + + + + + | MCH | 30.6 | 27.0 - 34.0 pg | EXTERNAL | | | | | | LAB | | + + + + + + | MCHC | 33.6 | 32.0 - 35.5 | EXTERNAL | | | | | g/dL | LAB | | + + + + + + | RDW-CV | 53.4 (H) | 37 - 53 fl | EXTERNAL | | | | | | LAB | | + + + + + + | Platelet | 165 | 150 - 400 K/uL | EXTERNAL | | | Count | | | LAB | | | Plasma | | | | | + + + + + + | MPV | 8.8 | fl | EXTERNAL | | | | | | LAB | | + + + + + + | Differentia | AUTOMATED | | EXTERNAL | | | l Type | | | LAB | | + + + + + + | % Segmented | 81.99 | % | EXTERNAL | | | | | | LAB | | | Neutrophils | | | | | + + + + + + | % | 3.46 | % | EXTERNAL | | | Lymphocytes | | | LAB | | + + + + + + | % Monocytes | 6.33 | % | EXTERNAL | | | | | | LAB | | + + + + + + | % | 7.63 | % | EXTERNAL | | | Eosinophils | | | LAB | | + + + + + + | % Basophils | 0.59 | % | EXTERNAL | | | | | | LAB | | + + + + + + | Absolute | 6.85 | 1.90 - 7.40 | EXTERNAL | | | Segmented | | K/uL | LAB | | | Neutrophils | | | | | + + + + + + | Absolute | 0.29 (L) | 1.00 - 3.90 | EXTERNAL | | | Lymphocytes | | K/uL | LAB | | + + + + + + | Absolute | 0.53 | 0.00 - 0.80 | EXTERNAL | | | Monocytes | | K/uL | LAB | | + + + + + + | Absolute | 0.64 (H) | 0.00 - 0.50 | EXTERNAL | | | Eosinophils | | K/uL | LAB | | + + + + + + | Absolute | 0.05Comment: Testing | 0.00 - 0.10 | EXTERNAL | | | Basophils | performed at [facility], [address] | [address] | LAB | | | | [address], | | | | | | [place] [address] | | | | + + + + + + + + | Specimen | + + | Blood specimen | | (specimen) | + + + +---------+ + + | Performing | Address | City/State/Zipcode | Phone Number | | Organization | | | | + +---------+ + + | EXTERNAL LAB | | | | + +---------+ + + Magnesium (12/28/2018 5:18 AM PDT) + + + + + + | Component | Value | Ref Range | Performed | Pathologist | | | | | At | Signature | + + + + + + | Magnesium | 1.7Comment: Testing | 1.7 - 2.4 mg/dL | EXTERNAL | | | | performed at [facility], [address] | | LAB | | | | [address], | | | | | | [place] [address] | | | | + + + + + + + + | Specimen | + + | Blood specimen | | (specimen) | + + + +---------+ + + | Performing | Address | City/State/Zipcode | Phone Number | | Organization | | | | + +---------+ + + | EXTERNAL LAB | | | | + +---------+ + + Basic Metabolic Panel (12/28/2018 5:18 AM PDT) + + + + + + | Component | Value | Ref Range | Performed | Pathologist | | | | | At | Signature | + + + + + + | Na | 143 | 135 - 145 | EXTERNAL | | | | | mmol/L | LAB | | + + + + + + | K | 4.3 | 3.5 - 4.9 | EXTERNAL | | | | | mmol/L | LAB | | + + + + + + | Cl | 106 | 99 - 109 mmol/L | EXTERNAL | | | | | | LAB | | + + + + + + | CO2 | 28 | 23 - 32 mmol/L | EXTERNAL | | | | | | LAB | | + + + + + + | Anion Gap | 13 | 5 - 20 mmol/L | EXTERNAL | | | | | | LAB | | + + + + + + | Glucose, | 88 | 65 - 99 mg/dL | EXTERNAL | | | Fasting | | | LAB | | + + + + + + | BUN | 40 (H) | 8 - 25 mg/dL | EXTERNAL | | | | | | LAB | | + + + + + + | Creatinine | 2.0 (H) | 0.70 - 1.30 | EXTERNAL | | | | | mg/dL | LAB | | + + + + + + | BUN/Creatin | 20 | | EXTERNAL | | | ine Ratio | | | LAB | | + + + + + + | Calcium | 9.1 | 8.5 - 10.5 | EXTERNAL | | | | | mg/dL | LAB | | + + + + + + | Estimated | 32 (L)Comment: GFR <60: | mL/min/1.73m2 | EXTERNAL | | | GFR | CHRONIC KIDNEY DISEASE, | | LAB | | | | IF FOUND OVER A 3 MONTH | | | | | | PERIOD.GFR <15: KIDNEY | | | | | | FAILURE.FOR | | | | | | AMERICANS, MULTIPLY THE | | | | | | CALCULATED GFR BY | | | | | | 1.210.This eGFR is | | | | | | calculated using the | | | | | | MDRD IDMS traceable | | | | | | equation.Testing | | | | | | performed at [facility], [address] | | | | | | [facility], | | | | | | [place] [address] | | | | + + + + + + + + | Specimen | + + | Blood specimen | | (specimen) | + + + +---------+ + + | Performing | Address | City/State/Zipcode | Phone Number | | Organization | | | | + +---------+ + + | EXTERNAL LAB | | | | + +---------+ + + Retic Count (12/27/2018 4:43 PM PDT) + + + + + + | Component | Value | Ref Range | Performed | Pathologist | | | | | At | Signature | + + + + + + | % | 1.4Comment: Testing | 0.4 - 2.7 % | EXTERNAL | | | Reticulocyt | performed at [facility];[address] | | LAB | | | e Count | [address];[place], [place] | | | | | | [address] | | | | + + + + + + + + | Specimen | + + | | + + + +---------+ + + | Performing | Address | City/State/Zipcode | Phone Number | | Organization | | | | + +---------+ + + | EXTERNAL LAB | | | | + +---------+ + + ECHO Complete (12/27/2018 9:01 AM PDT) + + | Specimen | + + | | + + + + + | Impressions | Performed At | + + + | 1. This was a technically difficult study with suboptimal views. 2. | | | Adequate EF 3. Severe bi-atrial enlargement. | | + + + + + + | Narrative | Performed At | + + + | Patient Name: Michael Joshi Date of : 1940 | | | Performing Physician: Pedrito Taylor | | | MD | | | ------REPORT ADDENDED------ INDICATIONS acute DE | | | CONCLUSIONS 1. This was [...] impaired. Right Ventricle: Pacer/ICD wire seen. Left Atrium: | | | The left atrium is markedly dilated. Right Atrium: The right atrium | | | is markedly enlarged. Right Atrium: Pacemaker wire seen in the right | | | atrial cavity. Aortic Valve: The aortic valve is trileaflet. Aortic | | | Valve: There is moderate aortic valve sclerosis without stenosis. | | | Aortic Valve: The aortic valve is mildly calcified. Aortic Valve: | | | There is [id number] aortic regurgitation. Mitral Valve: Mild | | | mitral regurgitation is present. Mitral Valve: Mild mitral annular | | | calcification present. Tricuspid Valve: The tricuspid valve was not | | | well visualized. Tricuspid Valve: The right ventricular systolic | | | pressure (pulmonary artery systolic pressure), as measured by Doppler, | | | is 49+15=64 mmHg. Pericardium: There is no pericardial effusion. | | | IVC/Hepatic Veins: The IVC is dilated (>2.5cm) and collapses <50% with | | | sniff, consistent with central venous pressures of 15mmHg. Aorta: | | | The aortic root and ascending aorta are dilated measuring up to 4.4 | | | cm. Mass: No mass visualized Thrombus: No clot visualized | | | MEASUREMENTS RA Area: 63.69 cm2 Ao asc: 4.41 cm | | | Ao sinus: 4.17 cm IVC: 3.28 cm EDV(Teich): 163.48 ml | | | IVSd: 1.29 cm LVIDd: 5.75 cm LVPWd: 1.32 cm LVOT Diam: | | | 2.52 cm %FS: 45.13 % EF(Teich): 75.77 % ESV(Teich): 39.61 | | | ml IVSs: 1.83 cm LVIDs: 3.15 cm LVPWs: 2.19 cm SV(Teich): | | | 123.87 ml RA Major: 9.45 cm RVIDd: 5.18 cm LVEF MOD A2C: | | | 56.80 % SV MOD A2C: 108.86 ml LVEDV MOD A2C: 191.64 ml | | | LVLd A2C: 8.80 cm LVESV MOD A2C: 82.78 ml LVLs A2C: 7.83 cm | | | LAESV(A-L): 249.36 ml LAESV Index (A-L): 109.85 ml/m2 LAAs | | | A2C: 64.13 cm2 LAESV A-L A2C: 351.26 ml LALs A2C: 9.93 cm | | | LAAs A4C: 45.52 cm2 LAESV A-L A4C: 173.98 ml LALs A4C: | | | 10.11 cm TAPSE: 1.10 cm HR: 80.22 BPM AV maxP.70 mmHg | | | AV meanP.31 mmHg AV Vmax: 1.55 m/s AV Vmean: 1.10 m/s | | | AV VTI: 33.13 cm ARIANNA Vmax: 2.73 cm2 ARIANNA (VTI): 2.82 cm2 | | | AVAI Vmax: 0.00 cm2/m2 AVAI (VTI): 0.00 cm2/m2 LVCI Dopp: | | | 2.84 l/minm2 LVCO Dopp: 6.45 l/min HR: 68.91 BPM LVOT maxPG: | | | 2.89 mmHg LVOT meanP.48 mmHg LVSI Dopp: 41.23 ml/m2 | | | LVSV Dopp: 93.59 ml LVOT Vmax: 0.85 m/s LVOT Vmean: 0.58 | | | m/s LVOT VTI: 18.72 cm Septal e': 0.08 m/s Lateral e': | | | 0.09 m/s HR: 59.71 BPM PV maxP.15 mmHg PV meanP.55 | | | mmHg PV Vmax: 0.53 m/s PV Vmean: 0.34 m/s PV VTI: 10.42 | | | cm RV S': 0.06 m/s TR maxP.74 mmHg TR Vmax: 3.49 m/s | | | Media Relations Director: ROSY Authenticated by: Pedrito Taylor MD Report | | | Date/Time: 12-27-2018 13:58:10 | | + + + + + | Procedure Note | + + | Edgardo Piper Conversion - 06/01/2019 8:17 PM PDT Patient Name: Kel Joshi of | | : 1940 Performing Physician: Pedrito Taylor | | MD ------REPORT | | ADDENDED------INDICATIONS acute DE CONCLUSIONS 1. This was a | | technically difficult study with suboptimal views. 2. Adequate EF 3. Severe bi-atrial | | enlargement. FINDINGS--------ECG rhythm: Undetermined rhythm.Study: A 2-dimensional | | transthoracic echocardiogram with m-mode, spectral and color flow Doppler was | | perfomed.Study: This was a technically difficult study with suboptimal views.Left | | Ventricle: Overall left ventricular systolic function is normal with, an EF between 60 - | | 65 %.Left Ventricle: The left ventricle cavity size is normal.Left Ventricle: There is | | mild concentric left ventricular hypertrophy.Left Ventricle: Cannot assess diastolic | | function due to arrhythmia.Right Ventricle: The right ventricle is severely enlarged | | measuring >4.1 cm.Right Ventricle: The right ventricular systolic function is mildly | | impaired.Right Ventricle: Pacer/ICD wire seen.Left Atrium: The left atrium is markedly | | dilated.Right Atrium: The right atrium is markedly enlarged.Right Atrium: Pacemaker wire | | seen in the right atrial cavity.Aortic Valve: The aortic valve is trileaflet.Aortic | | Valve: There is moderate aortic valve sclerosis without stenosis.Aortic Valve: The | | aortic valve is mildly calcified.Aortic Valve: There is ynxq-[id number]-nzfvfyak aortic | | regurgitation.Mitral Valve: Mild mitral regurgitation is present.Mitral Valve: Mild | | mitral annular calcification present.Tricuspid Valve: The tricuspid valve was not well | | visualized.Tricuspid Valve: The right ventricular systolic pressure (pulmonary [...] No mass visualizedThrombus: | | No clot visualized MEASUREMENTS RA Area: 63.69 cm2Ao asc: 4.41 cmAo [...] mlLAESV Index (A-L): 109.85 ml/m2LAAs A2C: 64.13 [id number] A-L A2C: 351.26 | | mlLALs A2C: 9.93 cmLAAs A4C: 45.52 [id number] A-L A4C: 173.98 mlLALs A4C: 10.11 | | cmTAPSE: 1.10 cmHR: 80.22 BPMAV maxP.70 mmHgAV meanP.31 mmHgAV Vmax: | | 1.55 m/Davie Vmean: 1.10 m/Davie VTI: 33.13 cmAVA Vmax: 2.73 cm2AVA (VTI): 2.82 | | [id number] Vmax: 0.00 cm2/m2AVAI (VTI): 0.00 cm2/m2LVCI Dopp: 2.84 l/[id number] Dopp: | | 6.45 l/minHR: 68.91 BPMLVOT maxP.89 mmHgLVOT meanP.48 mmHgLVSI Dopp: | | 41.23 ml/m2LVSV Dopp: 93.59 mlLVOT Vmax: 0.85 m/sLVOT Vmean: 0.58 m/sLVOT VTI: | | 18.72 cmSeptal e': 0.08 m/sLateral e': 0.09 m/sHR: 59.71 BPMPV maxP.15 | | mmHgPV meanP.55 mmHgPV Vmax: 0.53 m/sPV Vmean: 0.34 m/sPV VTI: 10.42 cmRV | | S': 0.06 m/sTR maxP.74 mmHgTR Vmax: 3.49 m/s Media Relations Director: MWAuthenticated by: | | Pedrito Taylor MDReport Date/Time: 12-27-2018 13:58:10 IMPRESSION: 1. This was a | | technically [...] |TR Vmax: 3.49 m/s | | | |Media Relations Director: MW | |Authenticated by: Pedrito Taylor MD | |Report Date/Time: 12-27-2018 13:58:10 | | | |IMPRESSION: | |1. This was a technically difficult study with suboptimal views. 2. Adequate EF 3. Severe b i-atrial enlargement. | + + Troponin I (12/27/2018 7:51 AM PDT) + + + + + + | Component | Value | Ref Range | Performed | Pathologist | | | | | At | Signature | + + + + + + | Troponin I, | 0.046 (H)Comment: 0.04 | 0.00 - 0.04 | EXTERNAL | | | Qual | ng/mL or less | ng/mL | LAB | | | | Negative, repeat | | | | | | testing in four to six | | | | | | hour if clinically | | | | | | indicted0.05 to 0.77 | | | | | | ng/mL | | | | | | Suspicious for | | | | | | myocardial injury. | | | | | | Serial measurements may | | | | | | be necessary to confirm | | | | | | or exclude the diagnosis | | | | | | of acute coronary | | | | | | syndrome. Repeat testing | | | | | | in four to six hours if | | | | | | indicated.0.78 or | | | | | | greater ng/mL | | | | | | Consistent with | | | | | | myocardial injury. | | | | | | Clinical and laboratory | | | | | | correlation recommended. | | | | | | NOTE NEW REFERENCE | | | | | | RANGETesting performed | | | | | | at [facility] [place];[facility] [address];[place] [address] | | | | + + + [...] +---------+ + + B Type Natriuretic Peptide (12/27/2018 5:31 AM PDT) + + + + + + | Component | Value | Ref Range | Performed | Pathologist | | | | | At | Signature | + + + + + + | BNP | 471.32 (H)Comment: | 0 - 100 pg/mL | EXTERNAL | | | | Testing performed at | | LAB | | | | [facility] [place];[address] [facility] | | | | | | [facility];[place] [address] | | | | + + + + + + + + | Specimen | + + | Blood specimen | | (specimen) | + + + +---------+ + + | Performing | Address | City/State/Zipcode | Phone Number | | Organization | | | | + +---------+ + + | EXTERNAL LAB | | | | + +---------+ + + Iron and Iron Binding Capacity (12/27/2018 5:17 AM PDT) + + + + + + | Component | Value | Ref Range | Performed | Pathologist | | | | | At | Signature | + + + + + + | Iron | 34 (L) | 45 - 190 ug/dL | EXTERNAL | | | | | | LAB | | + + + + + + | TIBC | 287 | 250 - 450 ug/dL | EXTERNAL | | | | | | LAB | | + + + + + + | Iron | 12 (L)Comment: Testing | 20 - 50 % | EXTERNAL | | | Saturation | performed at [facility], [address] | | LAB | | | | [address], | | | | | | [place] [address] | | | | + + + + + + + + | Specimen | + + | Blood specimen | | (specimen) | + + + +---------+ + + | Performing | Address | City/State/Zipcode | Phone Number | | Organization | | | | + +---------+ + + | EXTERNAL LAB | | | | + +---------+ + + Troponin I (12/27/2018 5:17 AM PDT) + + + + + + | Component | Value | Ref Range | Performed | Pathologist | | | | | At | Signature | + + + + + + | Troponin I, | 0.048 (H)Comment: 0.04 | 0.00 - 0.04 | EXTERNAL | | | Qual | ng/mL or less | ng/mL | LAB | | | | Negative, repeat | | | | | | testing in four to six | | | | | | hour if clinically | | | | | | indicted0.05 to 0.77 | | | | | | ng/mL | | | | | | Suspicious for | | | | | | myocardial injury. | | | | | | Serial measurements may | | | | | | be necessary to confirm | | | | | | or exclude the diagnosis | | | | | | of acute coronary | | | | | | syndrome. Repeat testing | | | | | | in four to six hours if | | | | | | indicated.0.78 or | | | | | | greater ng/mL | | | | | | Consistent with | | | | | | myocardial injury. | | | | | | Clinical and laboratory | | | | | | correlation recommended. | | | | | | NOTE NEW REFERENCE | | | | | | RANGETesting performed | | | | | | at [facility] [address] | | | | | | [address];[place] [address] | | | | + + + + + + + + | Specimen | + + | Blood specimen | | (specimen) | + + + +---------+ + + | Performing | Address | City/State/Zipcode | Phone Number | | Organization | | | | + +---------+ + + | EXTERNAL LAB | | | | + +---------+ + + External Lab: CBC (12/27/2018 5:17 AM PDT) + + + + + + | Component | Value | Ref Range | Performed | Pathologist | | | | | At | Signature | + + + + + + | WBC | 7.62 | 3.80 - 11.00 | EXTERNAL | | | | | K/uL | LAB | | + + + + + + | RED CELL | 3.28 (L) | 4.20 - 5.70 | EXTERNAL | | | COUNT | | M/uL | LAB | | + + + + + + | Hgb | 9.8 (L) | 13.2 - 17.0 | EXTERNAL | | | | | g/dL | LAB | | + + + + + + | Hematocrit, | 30.0 (L) | 39.0 - 50.0 % | EXTERNAL | | | POC | | | LAB | | + + + + + + | MCV | 91.3 | 80.0 - 100.0 fl | EXTERNAL | | | | | | LAB | | + + + + + + | MCH | 30.0 | 27.0 - 34.0 pg | EXTERNAL | | | | | | LAB | | + + + + + + | MCHC | 32.8 | 32.0 - 35.5 | EXTERNAL | | | | | g/dL | LAB | | + + + + + + | RDW-CV | 54.3 (H) | 37 - 53 fl | EXTERNAL | | | | | | LAB | | + + + + + + | Platelet | 164 | 150 - 400 K/uL | EXTERNAL | | | Count | | | LAB | | | Plasma | | | | | + + + + + + | MPV | 9.1 | fl | EXTERNAL | | | | | | LAB | | + + + + + + | Differentia | AUTOMATED | | EXTERNAL | | | l Type | | | LAB | | + + + + + + | % Segmented | 79.31 | % | EXTERNAL | | | | | | LAB | | | Neutrophils | | | | | + + + + + + | % | 6.00 | % | EXTERNAL | | | Lymphocytes | | | LAB | | + + + + + + | % Monocytes | 6.89 | % | EXTERNAL | | | | | | LAB | | + + + + + + | % | 7.17 | % | EXTERNAL | | | Eosinophils | | | LAB | | + + + + + + | % Basophils | 0.63 | % | EXTERNAL | | | | | | LAB | | + + + + + + | Absolute | 6.04 | 1.90 - 7.40 | EXTERNAL | | | Segmented | | K/uL | LAB | | | Neutrophils | | | | | + + + + + + | Absolute | 0.46 (L) | 1.00 - 3.90 | EXTERNAL | | | Lymphocytes | | K/uL | LAB | | + + + + + + | Absolute | 0.53 | 0.00 - 0.80 | EXTERNAL | | | Monocytes | | K/uL | LAB | | + + + + + + | Absolute | 0.55 (H) | 0.00 - 0.50 | EXTERNAL | | | Eosinophils | | K/uL | LAB | | + + + + + + | Absolute | 0.05Comment: Testing | 0.00 - 0.10 | EXTERNAL | | | Basophils | performed at [facility], [address] | K/uL | LAB | | | | [address], | | | | | | [place] [address] | | | | + + + + + + + + | Specimen | + + | Blood specimen | | (specimen) | + + + +---------+ + + | Performing | Address | City/State/Zipcode | Phone Number | | Organization | | | | + +---------+ + + | EXTERNAL LAB | | | | + +---------+ + + TSH (12/27/2018 5:17 AM PDT) + + + + + + | Component | Value | Ref Range | Performed | Pathologist | | | | | At | Signature | + + + + + + | TSH | 1.500Comment: Testing | 0.450 - 5.100 | EXTERNAL | | | | performed at [facility], [address] | uIU/mL | LAB | | | | [address], | | | | | | [place] [address] | | | | + + + + + + + + | Specimen | + + | Blood specimen | | (specimen) | + + + +---------+ + + | Performing | Address | City/State/Zipcode | Phone Number | | Organization | | | | + +---------+ + + | EXTERNAL LAB | | | | + +---------+ + + Phosphorus (12/27/2018 5:17 AM PDT) + + + + + + | Component | Value | Ref Range | Performed | Pathologist | | | | | At | Signature | + + + + + + | PHOSPHORUS | 3.2Comment: Testing | 2.3 - 4.8 mg/dL | EXTERNAL | | | | performed at [facility], [address] | | LAB | | | | [address], | | | | | | [place] [address] | | | | + + + + + + + + | Specimen | + + | Blood specimen | | (specimen) | + + + +---------+ + + | Performing | Address | City/State/Zipcode | Phone Number | | Organization | | | | + +---------+ + + | EXTERNAL LAB | | | | + +---------+ + + Magnesium (12/27/2018 5:17 AM PDT) + + + + + + | Component | Value | Ref Range | Performed | Pathologist | | | | | At | Signature | + + + + + + | Magnesium | 2.0Comment: Testing | 1.7 - 2.4 mg/dL | EXTERNAL | | | | performed at [facility], [address] | | LAB | | | | [address], | | | | | | [place] [address] | | | | + + + + + + + + | Specimen | + + | Blood specimen | | (specimen) | + + + +---------+ + + | Performing | Address | City/State/Zipcode | Phone Number | | Organization | | | | + +---------+ + + | EXTERNAL LAB | | | | + +---------+ + + Hemoglobin A1C (12/27/2018 5:17 AM PDT) + + + + + + | Component | Value | Ref Range | Performed | Pathologist | | | | | At | Signature | + + + + + + | Hemoglobin | 5.5Comment: HbA1c method | 4.0 - 6.0 % | EXTERNAL | | | A1c | is certified by NG[employer] | | LAB | | | | and traceable to the | | | | | | DCCT reference | | | | | | method.ADA guidelines | | | | | | indicate: | | | | | | Prediabetes: 5.7 - 6.4 | | | | | | Diabetes: >6.4 | | | | | | Glycemic control for | | | | | | adults with diabetes: | | | | | | <7.0Effective 11/04/2018: | | | | | | Note New Method | | | | + + + + + + | Glycohemogl | 111Comment: Estimated | mg/dL | EXTERNAL | | | obin | Average Glucose | | LAB | | | (GHb),Total | calculated from | | | | | | hemoglobin A1c by use of | | | | | | the ADA recommended | | | | | | formula.Testing | | | | | | performed at [facility], [address] | | | | | | [facility], | | | | | | [place] [address] | | | | + + + + + + + + | Specimen | + + | Blood specimen | | (specimen) | + + + +---------+ + + | Performing | Address | City/State/Zipcode | Phone Number | | Organization | | | | + +---------+ + + | EXTERNAL LAB | | | | + +---------+ + + Ferritin (12/27/2018 5:17 AM PDT) + + + + + + | Component | Value | Ref Range | Performed | Pathologist | | | | | At | Signature | + + + + + + | Ferritin, | 33Comment: Testing | 11 - 450 ng/mL | EXTERNAL | | | External | performed at [facility], [address] | | LAB | | | | [address], | | | | | | [place] [address] | | | | + + + + + + + + | Specimen | + + | Blood specimen | | (specimen) | + + + +---------+ + + | Performing | Address | City/State/Zipcode | Phone Number | | Organization | | | | + +---------+ + + | EXTERNAL LAB | | | | + +---------+ + + Lipid Panel (12/27/2018 5:17 AM PDT) + + + + + + | Component | Value | Ref Range | Performed | Pathologist | | | | | At | Signature | + + + + + + | Cholesterol | 108 | mg/dL | EXTERNAL | | | | | | LAB | | + + + + + + | Triglycerid | 67 | mg/dL | EXTERNAL | | | es | | | LAB | | + + + + + + | HDL | 39 (L) | mg/dL | EXTERNAL | | | | | | LAB | | + + + + + + | LDL | 56Comment: Testing | mg/dL | EXTERNAL | | | Cholesterol | performed at [facility], [address] | | LAB | | | , | [address], | | | | | Calculated, | [place] [address] | | | | | External | [...] + +---------+ + + Comprehensive Metabolic Panel (12/27/2018 5:17 AM PDT) + + + + + + | Component | Value | Ref Range | Performed | Pathologist | | | | | At | Signature | + + + + + + | Na | 142 | 135 - 145 | EXTERNAL | | | | | mmol/L | LAB | | + + + + + + | K | 4.6 | 3.5 - 4.9 | EXTERNAL | | | | | mmol/L | LAB | | + + + + + + | Cl | 110 (H) | 99 - 109 mmol/L | EXTERNAL | | | | | | LAB | | + + + + + + | CO2 | 21 (L) | 23 - 32 mmol/L | EXTERNAL | | | | | | LAB | | + + + + + + | Anion Gap | 16 | 5 - 20 mmol/L | EXTERNAL | | | | | | LAB | | + + + + + + | Glucose, | 89 | 65 - 99 mg/dL | EXTERNAL | | | Fasting | | | LAB | | + + + + + + | BUN | 44 (H) | 8 - 25 mg/dL | EXTERNAL | | | | | | LAB | | + + + + + + | Creatinine | 1.9 (H) | 0.70 - 1.30 | EXTERNAL | | | | | mg/dL | LAB | | + + + + + + | BUN/Creatin | 23 | | EXTERNAL | | | ine Ratio | | | LAB | | + + + + + + | Calcium | 8.6 | 8.5 - 10.5 | EXTERNAL | | | | | mg/dL | LAB | | + + + + + + | Protein, | 6.4 | 6.3 - 8.2 g/dL | EXTERNAL | | | Total | | | LAB | | + + + + + + | Albumin | 3.0 (L) | 3.3 - 4.8 g/dL | EXTERNAL | | | | | | LAB | | + + + + + + | Globulin | 3.4 | 1.3 - 4.9 g/dL | EXTERNAL | | | | | | LAB | | + + + + + + | A/G Ratio | 0.9 (L) | 1.0 - 2.4 | EXTERNAL | | | | | | LAB | | + + + + + + | Bilirubin | 0.5 | 0.1 - 1.5 mg/dL | EXTERNAL | | | Total | | | LAB | | + + + + + + | ALP, | 86 | 35 - 115 U/L | EXTERNAL | | | External | | | LAB | | + + + + + + | AST | 12 | 10 - 45 U/L | EXTERNAL | | | | | | LAB | | + + + + + + | ALT | 14 | 10 - 65 U/L | EXTERNAL | | | | | | LAB | | + + + + + + | Estimated | 34 (L)Comment: GFR <60: | mL/min/1.73m2 | EXTERNAL | | | GFR | CHRONIC KIDNEY DISEASE, | | LAB | | | | IF FOUND OVER A 3 MONTH | | | | | | PERIOD.GFR <15: KIDNEY | | | | | | FAILURE.FOR | | | | | | AMERICANS, MULTIPLY THE | | | | | | CALCULATED GFR BY | | | | | | 1.210.This eGFR is | | | | | | calculated using the | | | | | | MDRD IDMS traceable | | | | | | equation.Testing | | | | | | performed at [facility], [address] | | | | | | [address], | | | | | | [place] [address] | | | | + + + + + + + + | Specimen | + + | Blood specimen | | (specimen) | + + + +---------+ + + | Performing | Address | City/State/Zipcode | Phone Number | | Organization | | | | + +---------+ + + | EXTERNAL LAB | | | | + +---------+ + + ECG 12 lead (12/27/2018 3:39 AM PDT) + + + + + + | Component | Value | Ref Range | Performed | Pathologist | | | | | At | Signature | + + + + + + | DIAGNOSIS: | Junctional | | EXTERNAL | | | | rhythmVentricular demand | | LAB | | | | pacingLow voltage | | | | | | QRSAbnormal ECGWhen | | | | | | compared with ECG of | | | | | | 25-NOV-2017 11:24,No | | | | | | significant change since | | | | | | previous ECG Confirmed | | | | | | by SHILPA TAYLOR MD | | | | | | (204) on 12/27/2018 | | | | | | 11:49:52 AM | | | | + + + + + + + + | Specimen | + + | | + + + + + | Narrative | Performed At | + + + | Historically converted procedure from [facility] Epic environment | EXTERNAL LAB | + + + + +---------+ + + | Performing | Address | City/State/Zipcode | Phone Number | | Organization | | | | + +---------+ + + | EXTERNAL LAB | | | | + +---------+ + + documented in this encounter Visit Diagnoses + + | Diagnosis | + + | Hypervolemia, unspecified hypervolemia type | + + documented in this encounter
--- OUTSIDE RECORDS SUMMARY | ~2019-10-13 | XMS | Encounter Summary ---
Demographics + + + | Address | [address] | | | [place] [address] | + + + | Home Phone | | + + + | Preferred Language | Unknown | + + + | Marital Status | | + + + | Moravian Affiliation | 1041 | + + + | Race | Unknown | + + + | Ethnic Group | Unknown | + + + Author + + + | Author | [facility] | | | and [place] | + + + | Organization | [facility] | | [...] Team Providers + +------+ + | Care Pai Gow Dealer Name | Role | Phone | + +------+ + | Kushal Costa MD | PCP | | + +------+ + Encounter Details +--------+ + + + + | Date | Type | Department | Care Team | Description | +--------+ + + + + | 10/23/ | Orders Only | [facility] | Conversion | | | 2019 | | NEPHROLOGY [facility] | Transaction, | | | | | [address] [place] | Provider Unknown | | | | | [address] [facility] [place] | | | | | | [address] | (Fax) | | | | | [phone] | | | +--------+ + + + [...] 2019 | Visit | | [address] [facility] | | | | | | [address] [place] | | | | | | [address] | | | | | | | [...]
--- OUTSIDE RECORDS SUMMARY | ~2019-10-13 | XMS | Clinical Summary ---
Demographics + + + | Address | [address] | | | [place] [address] | + + + | Home Phone | | + + + | Preferred Language | Unknown | + + + | Marital Status | | + + + | Advent Affiliation | 1041 | + + + | Race | Unknown | + + + | Ethnic Group | Unknown | + + + Author + + + | Author | [facility] | | | and [place] | + + + | Organization | [facility] | | | and [...] Team Providers + +------+ + | Care Kennel Manager Dog Track Name | Role | Phone | + +------+ + | Kushal Costa MD | PCP | | + +------+ + Allergies + + + + + + | Active Allergy | Reactions | Severity | Noted | Comments | | | | | Date | | + + + + + + | Iodinated Diagnostic | Rash, Other (See | Low | 06/05/20 | "CT Scan dye" | | Agents | Comments) | | 18 | | + + + + + + | Lisinopril | Rash | Medium | 10/24/19 | | | | | | 18 | | + + + + + + | Vitamin K And | Shortness Of Breath | High | 12/23/19 | | | Related | | | 18 | | + + + + + + | Warfarin | Itching, Rash | Medium | 10/27/19 | Severe bleeding | | | | | 18 | | + + + + + + Medications + + + +---------+------+------+-------+ | Medication | Sig | Dispensed | Refills | Star | End | Statu | | | | | | t | Date | s | | | | | | Date | | | + + + +---------+------+------+-------+ | metoprolol | Take 50 mg by mouth | | 0 | | | Activ | | tartrate (LOPRESSOR) | 2 times daily. | | | | | e | | 50 mg tablet | | | | | | | + + + +---------+------+------+-------+ | aspirin 81 mg EC | Take 81 mg by mouth | | 0 | | | Activ | | tablet | Daily. | | | | | e | + + + +---------+------+------+-------+ | cholecalciferol | Take 1,000 Units by | | 0 | | | Activ | | (VITAMIN D-3) 1,000 | mouth Daily. | | | | | e | | units tablet | | | | | | | + + + +---------+------+------+-------+ | allopurinol | Take 2 tablets by | | 0 | 04/20 | 04/20 | Activ | | (ZYLOPRIM) 100 mg | mouth daily. | | | 01/06 | 2 | e | | tablet | | | | 19 | 20 | | + + + +---------+------+------+-------+ | ascorbic acid | Take 500 mg by mouth | | 0 | | | Activ | | (VITAMIN C) 500 MG | daily. | | | | | e | | tablet | | | | | | | + + + +---------+------+------+-------+ | atorvaSTATin | Take 20 mg by mouth | | 0 | | | Activ | | (LIPITOR) 20 mg | daily. | | | | | e | | tablet | | | | | | | + + + +---------+------+------+-------+ | potassium chloride | Take 10 mEq by mouth | | 0 | | | Activ | | (KLOR-CON) 10 MEQ | 2 (two) times daily | | | | | e | | ER tablet | with meals. | | | | | | + + + +---------+------+------+-------+ | torsemide | Take 40 mg by mouth | | 0 | | | Activ | | (DEMADEX) 20 mg | daily. | | | | | e | | tablet | | | | | | | + + + +---------+------+------+-------+ | metOLazone 5 MG | Take 1 tablet by | | 0 | 05/1 | 05/1 | Activ | | tablet | mouth daily. | | | 5/20 | 420 | e | | | | | | 19 | 20 | | + + + +---------+------+------+-------+ | PARoxetine (PAXIL) | Take 20 mg by mouth | | 0 | | | Activ | | 20 mg tablet | every morning. | | | | | e | + + + +---------+------+------+-------+ Active Problems + + + | Problem | Noted Date | + + + | CKD (chronic kidney disease), stage IV | 07/26/2019 | + + + | Secondary hyperparathyroidism | 07/26/2019 | + + + | Vitamin D deficiency | 07/26/2019 | + + + | Pacemaker | 07/08/2019 | + + + | Wound, open, leg | 03/18/2019 | + + + | Anemia of chronic renal failure, stage 3 (moderate) | 02/15/2019 | + + + | Chronic diastolic heart failure | 12/27/2018 | + + + | Pulmonary hypertension | 12/27/2018 | + + + | Right heart failure | 12/27/2018 | + + + | Electrolyte imbalance risk | 07/06/2018 | + + + | Low back pain, unspecified back pain laterality, unspecified | 06/11/2018 | | chronicity, with sciatica presence unspecified | | + + + + + | Overview: Problem 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 Utility | + + + + + | DDD (degenerative disc disease), lumbar | 06/11/2018 | + + + | Lumbar radiculopathy | 06/11/2018 | + + + | Spinal stenosis at L4-L5 level | 06/11/2018 | + + + | GI bleeding | 03/10/2018 | + + + + + | Overview: On warfarin 2016 | + + + + + | NEETU (obstructive sleep apnea) | 03/10/2018 | + + + + + | Overview: Not compliant with CPAP | + + Encounters +--------+ + + + + | Date | Type | Specialty | Care Team | Description | +--------+ + + + + | 09/06/ | Telephone | Nephrology | Danny Gandara MD | Other (Facility call | | 2019 | | | | ) | +--------+ + + + + | 07/26/ | Office | Nephrology | Danny Gandara MD | Anemia of chronic | | 2019 | Visit | | | renal failure, stage | | | | | | 3 (moderate) ([facility]) | | | | | | (Primary Dx); CKD | | | | | | (chronic kidney | | | | | | disease), stage IV | | | | | | ([facility]); Electrolyte | | | | | | imbalance risk; | | | | | | Secondary | | | | | | hyperparathyroidism | | | | | | ([facility]); Vitamin D | | | | | | deficiency | +--------+ + + + + | 07/26/ | Orders Only | Nephrology | Danny Gandara MD | CKD (chronic kidney | | 2018 | | | | disease), stage IV | | | | | | ([facility]) (Primary Dx) | +--------+ + + + + | 07/26/ | Documentati | Nephrology | Tobias, | | | 2018 | on | | Bandar Cannon | | | | | | Mail Service Coordinator | | +--------+ + + + + from Last 3 Months Immunizations + + + + | Name | Administration Dates | Next Due | + + + + | INFLUENZA PF | 12/27/2018 | | | QUAD(PED/ADOL/ADULT) | | | | ,PSKT or VIAL | | | + + + + Family History Patient is adopted + + +---------+ + | Medical History | Relation | Name | Comments | + + +---------+ + | No known problems | Daughter | Marianna | | | | | [place] | | + + +---------+ + + +---------+--------+ + | Relation | Name | Status | Comments | + +---------+--------+ + | Daughter | Marianna | Alive | | | | [place] | | | + +---------+--------+ + Social History + +-------+ +--------+------+ | [...] | + + Last Filed Vital Signs + + + + + | Vital Sign | Reading | Time Taken | Comments | + + + + + | Blood Pressure | 128/90 | 07/26/2019 10:09 AM | | | | | PDT | | + + + + + | Pulse | 68 | 07/26/2019 10:09 AM | | | | | PDT | | + + + + + | Temperature | 37.2 C (98.9 F) | 03/20/2019 8:24 AM | | | | | PDT | | + + + + + | Respiratory Rate | 20 | 03/20/2019 8:24 AM | | | | | PDT | | + + + + + | Oxygen Saturation | - | - | | + + + + + | Inhaled Oxygen | - | - | | | Concentration | | | | + + + + + | Weight | 117.1 kg (258 lb 3.2 | 07/26/2019 10:09 AM | | | | oz) | PDT | | + + + + + | Height | 167.6 cm (5' 6") | 07/26/2019 10:09 AM | | | | | PDT | | + + + + + | Body Mass Index | 41.67 | 07/26/2019 10:09 AM | | | | | PDT | | + + + + + Plan of Treatment +--------+ + + + + | Date | Type | Specialty | Care Team | Description | +--------+ + + + + | 11/29/ | Office | Nephrology | Danny Gandara MD | | | 2019 | Visit | | [address] [facility] | | | | | | [address] [place], [place] | | | | | | [address] | | | | | | | [...] | | | | | Pneumococcal 65+ (1 | 5 | | | | of 2 - PCV13) | | | | + + + + + | Vaccine: Zoster (2 | | 04/27/2007 | | | of 3) | 7 | | | + + + + + | Adult Annual | | | | | Wellness Visit | 8 | | | + + + + + | Vaccine: | | 03/17/2019 | | | Dtap/Tdap/Td (2 - | 9 | | | | Td) | | | | + + + + + | Vaccine: Influenza | Completed | 08/25/2019, 12/27/2018, | | | | | 07/03/2018, Additional history | | | | | exists | | + + + + + [...] +--------+ + + + | EXTERNAL LAB: PTH, | Routin | 07/23/2019 | | Results for this | | INTACT | e | | | procedure are in the | | | | | | results section. | + +--------+ + + + from Last 3 Months Results External Lab: PTH, Intact (07/23/2019) + + [...] | + + | | + + CBC w/ Auto Differential [...] + + | Blood | + + Uric Acid (07/23/2019) + +-------+ + + + | Component | Value | Ref Range | Performed | Pathologist | | | | | At | Signature | + +-------+ + + + | Uric Acid | 7 | 4.4 - 7.6 | | | + +-------+ + + [...] from Last 3 Months Insurance + +--------+ +--------+ +---------+--------+ | Payer | Benefi | Subscriber | Effect | Phone | Address | Type | | | t Plan | ID | qing | | | | | | / | | Dates | | | | | | Group | | | | | | + +--------+ +--------+ +---------+--------+ | MEDICARE | MEDICA | [id number] | 10/20/19 | [phone] | | Medica | | | RE | | 05-Pre | 5 | | re | | | PART A | | sent | | | | | | AND B | | | | | | + +--------+ +--------+ +---------+--------+ | MEDICARE | MEDICA | [id number] | 10/20/19 | [phone] | | Medica | | | RE | | 05-Pre | 5 | | re | | | PART A | | sent | | | | | | AND B | | | | | | + +--------+ +--------+ +---------+--------+ + +--------+ +--------+ + + | Guarantor Name | Accoun | Relation to | Date | Phone | Billing Address | | | t Type | Patient | of | | | | | | | | | | + +--------+ +--------+ + + | Michael Joshi | Person | Self [birth year] | [address] | | | al/Fam | | 1941 | [phone] | [place] | | | [place] | | | 1 (Home) | [address] | + +--------+ +--------+ + + | Michael Joshi | Person | Self [birth year] | [address] | | | al/Fam | | 1941 | [phone] | [place] | | | [place] | | | [address] (Home) | [address] | + +--------+ +--------+ + + Advance Directives + + + + + | Type | Date Recorded | Patient | Explanation | | | | Paid Search Marketing Strategist | | + + + + + | Power of | | | | | Trade Facilitator | | | | + + + + + | Advance | | | | | Directive | | | | + + + + +
--- OUTSIDE RECORDS SUMMARY | ~2019-10-13 | XMS | Encounter Summary ---
Demographics + + + | Address | [address] | | | [place] [address] | + + + | Home Phone | | + + + | Preferred Language | Unknown | + + + | Marital Status | | + + + | Mormonism Affiliation | 1041 | + + + | Race | Unknown | + + + | Ethnic Group | Unknown | + + + Author + + + | Author | [facility] | | | and [place] | + + + | Organization | [facility] | | | and [...] Team Providers + +------+ + | Care Roving Department Supervisor Name | Role | Phone | [...] [place] | | | | | [phone] | [place] [address] | | +--------+ + + + + [...] 2019 | Visit | | [address] | | | | | | [address] [place], [place] | | | | | | [address] | | | | | | | [...]
--- OUTSIDE RECORDS SUMMARY | ~2019-10-13 | XMS | Encounter Summary ---
Demographics + + + | Address | [address] | | | [place] [address] | + + + | Home Phone | | + + + | Preferred Language | Unknown | + + + | Marital Status | | + + + | Baptism Affiliation | [id number] | + + + | Race | Unknown | + + + | Ethnic Group | Unknown | + + + Author + + + | Author | [facility] | | | and [place] | + + + | Organization | [facility] | | | [...] Team Providers + +------+ + | Care User Support Specialist Name | Role | Phone | + +------+ + | Kushal Costa MD | PCP | | + +------+ + Encounter Details +--------+ + + + + | Date | Type | Department | Care Team | Description | +--------+ + + + + | 03/18/ | Hospital | [facility] | [place], | Syncope, unspecified | | 2019 - | Encounter | [facility] | [address] | syncope type; | | | | CARE FLOOR [address] | [place] [address] | Pacemaker failure, | | 03/20/ | | [address] | [phone] | initial encounter; | | 2018 | | [place], [place] | | Stage 3 chronic | | | | [address] | | kidney disease (HCC) | | | | [phone] | | | +--------+ + + + [...] + + + | Blood Pressure | 119/66 | 03/20/2019 8:24 AM | | | | | PDT | | + + + + + | Pulse | 99 | 03/20/2019 8:24 AM | | | [...] + + + + | Weight | 116.1 kg (256 lb) | 03/20/2019 8:24 AM | | | | | PDT | | + + + + + | Height | - | - | | + + + + + | Body Mass Index | 41.32 | 03/03/2019 3:49 PM | | | | | PDT | | + + + + + documented in this encounter Discharge Summaries Lila Brady MD - 03/20/2019 7:51 AM PDTFormatting of this note might be different f rom the original. Discharge Summaries by Lila Brady MD at 03/20/19 0751 Author: Lila Brady MD Service: Cardiology Author Type: Physician Filed: 03/28/19 2217 Date of Service: 03/20/19 075 Status: Addendum Condenser Tester: Lila Brady MD (Physician) Related Notes: Original Note by Lila Brady MD (Physician) filed at 03/20/19 0756 [facility] Service: Cardiology Discharge Summary Date of Admission: 03/18/2019 Date of Discharge: 03/20/2019 Discharge Physician: Lila Brady MD DISCHARGE DIAGNOSIS: Pacemaker generator change. Chronic atrial fibrillation off anticoagulation secondary to previous GI bleed status post watchman device. Morbid obesity. Chronic kidney disease stage IV. Hypertension. Chronic lower extremity edema. Pressure injury on the left buttock. PROCEDURES: Pacemaker generator change. HOSPITAL COURSE: Patient is 78-year-old male who was transferred from [facility] to [facility] to pacemaker battery at end-of-life. Patient was admitted there secondary to a syncopa l episode. No head trauma. Was electively taken to elective physiology lab after consent was obtained. Was treated wi th IV vancomycin. Pacemaker generator change was performed without any complication. Patie nt tolerated procedure well. Received 1 dose of IV cefazolin postop. Will be discharged on cefazolin for 1 week given h is previous lower extremity cellulitis. He has also healed wound in the lower extremity. DISCHARGE EXAM Vital Signs: BP 128/82 (BP Location: Left upper arm) | Pulse 101 | Temp 98.9 F (37.2 C) (Oral) | Resp 20 | Wt 116.1 kg (256 lb) | SpO2 96% | BMI 41.32 kg/m HEENT: Extraocular movements were intact. No jaundice. NECK: no JVD, lymphadenopathy. Trachea is at midline. Thyroid is not palpable. CARDIAC: Irregularly irregular. CHEST: Normal bilateral symmetrical chest excursion. Good bilateral air entry with no crack les or wheezing. No evidence of dullness. ABDOMEN: Soft and lax. No tenderness. No palpable organs. Active bowel sounds. EXTREMITIES: No lower extremities edema. NEURO: Alert and oriented times three with no focal deficit. Cranial nerves are grossly no rmal. SKIN: Lower extremity skin discoloration. DATA: Recent Labs Lab 03/20/19 0553 03/19/19 0638 NA 141 140 K 3.3* 3.1* CO2 34* 35* BUN 59* 57* CREATININE 2.2* 2.2* MG -- 2.2 Recent Labs Lab 03/18/19 1608 CKTOTAL 535* CKMB 11.3* CKMBINDEX 2.1 Recent Labs Lab 03/20/19 0553 WBC 8.40 HGB 10.6* HCT 31.7* MCV 93.1 PLT 171 PLAN: Patient will be discharged home today. Will be restarted on metoprolol 25 mg twice daily for rate control. Cefazolin 500 mg 3 times daily for 1 week. Wound check will be scheduled for next Friday in [place] cardiology clinic. We will continue to follow-up with nephrology. Again patient is not a candidate for anticoagulation given previous history of GI bleed. DISCHARGE MEDICATIONS: Medication List START taking these medications cephALEXin 500 MG capsule QTY: 21 capsule Refills: 0 Commonly known as: KEFLEX Take 1 capsule by mouth 3 (three) times daily. metoprolol 25 MG tablet QTY: 120 tablet Refills: 3 Commonly known as: LOPRESSOR Take 1 tablet by mouth 2 (two) times daily. CONTINUE taking these medications allopurinol 100 MG [...] tablet Refills: 0 Commonly known as: NORCO metolazone 5 MG tablet QTY: 60 tablet Refills: 11 Take 1 tablet by mouth daily. mometasone 0.1 % cream Refills: 0 Commonly known as: ELOCON PARoxetine 20 MG tablet Refills: 0 Commonly known as: PAXIL torsemide 20 MG tablet Refills: 0 Commonly known as: DEMADEX You might also be taking other medications not listed above. If you have questions about an y of your other medications, talk to the person who prescribed them or your Primary Care Pro vider. Where to Get Your Medications You can get these medications from any pharmacy Bring a paper prescription for each of these medications cephALEXin 500 MG capsule metoprolol 25 MG tablet Disposition: Home Condition: Stable Code Status: Full Code Discharge took 20 minutes, to include final examination, discussion of admission, and prepa ration of prescriptions, instructions for on-going care, follow-up and documentation of disc harge summary. Lila Brady MD 03/20/2019 documented in this encounter Medications at Time [...] + + +---------+ + + | metOLazone 5 MG | Take 1 tablet by | | 0 | 03/03/20 | | | tablet | mouth daily. | | | 19 | 0 | + + + +---------+ + + [...] + + documented as of this encounter Progress Notes Conversion Transaction, Provider Unknown - 03/20/2019 11:54 AM PDTFormatting of this note m ight be different from the original. Nurse Progress Note by Kristine Mueller RN at 03/20/191153 Author: Kristine Mueller RN Service: (none) Author Type: Registered Nurse Filed: 03/20/19 7130 Date of Service: 03/20/191153 Status: Signed Condenser Tester: Kristine Mueller RN (Registered Nurse) Pt left with in wheelchair to transport home in private vehicle. All discharge instruc tions given, all questions and concerns addressed. All belongings with patient. Kristine Mueller RN onver sarah Transaction, Provider Unknown - 03/19/2019 6:43 PM PDT Nurse Progress Note by Teresa Alan RN at 03/19/191842 Author: Teresa Alan RN Service: (none) Author Type: Registered Nurse Filed: 03/19/191843 Date of Service: 03/19/191842 Status: Signed Condenser Tester: Teresa Alan RN (Registered Nurse) Pt returned from clinical lab clerk from procedure vitals remain stable. No acute changes during shif t. End of shift chart check complete. Teresa Alan RN. onver sarah Transaction, Provider Unknown - 03/19/2019 4:04 PM PDT Progress Notes by Darren Resendiz RN at 03/19/19 160 Author: Darren Resendiz RN Service: Interventional Cardiology Author Type: Registered Nu rse Filed: 03/19/19 160 Date of Service: 03/19/19 160 Status: Signed Condenser Tester: Darren Resendiz RN (Registered Nurse) Anesthesia will be monitoring and documenting vitals, hemodynamics, and medication administ ration onver sarah Transaction, Provider Unknown - 03/19/2019 3:52 PM PDT Progress Notes by Meri Carlton RD at 03/19/191551 Author: Meri Carlton RD Service: (none) Author Type: Registered Dietitian Filed: 03/19/191551 Date of Service: 03/19/191551 Status: Signed Condenser Tester: Meri Carlton RD (Registered Dietitian) 03/19/19 2033 Subjective Timepoint Admit (PI) Diet Experience Self-selected diet(s) followed Pt states he normally eats 1-2 meals/d at home. He eats rufina e high protein foods, including meat, fish, eggs, and peanut butter. He has milk on cereal. Pt does not add salt to his foods. Fluid / Beverage Intake Oral Fluids Amount NPO Food Intake Amount of Food NPO Parenteral Nutrition Intake Rate/Solution D5 1/2 NS with KCL at 75 ml/hr Micronutrient Intake Vitamin Intake C;D Food and Nutrition Knowledge Area(s) and Level of Knowledge Discussed importance of high protein foods for wound healing . Pt expressed understanding. Nutrition-Focused Physical Findings Skin Pt with stage 3 PI to left buttocks, laceration to left leg, and abrasions to right el bow and RLE. crystal lapper is following. Anthropometrics Height (Ht listed at 5'6") Weight change Admit wt: 116.1 kg. BMI 41.3 (class III obesity). Biochemical data, medical tests, and procedures reviewed Biochemical data, medical tests, and procedures reviewed K 3.1 (L) - KCl in IV fluids; BUN 57 (H), Cr 2.2 (H) - pt with CKD stage 3; will monitor. Estimated Energy Needs Total Energy Estimated Needs 1935 - 2320 kcal/day Method for Estimating Needs 25 - 30 kcal/kg adj BW (77.4 kg) Estimated Protein Needs Total Protein Estimated Needs 93 - 108 g/day Method for Estimating Needs 1.2 - 1.4 g/kg adj BW (77.4 kg) Recommendations Recommended energy needs Advance diet as tolerated to Cardiac. Recommend Aly BID as am, pm snack to help promote wound healing. Nutritional Risk Nutritional risk Moderate Follow up date 03/24/19 Kye Zazueta DO - 03/19/2019 3:21 PM PDTFormatting of this note might be different from the origi nal. Progress Notes by Kye Saxena DO at 03/19/19 1521 Author: Kye Saxena DO Service: Hospitalist Author Type: Physician Filed: 03/19/19 1528 Date of Service: 03/19/19 152 Status: Signed Condenser Tester: Kye Saxena DO (Physician) [facility] Service: Hospitalist Progress Note Pt: Michael Joshi AGE/SEX: 78 y.o. male : 1940 ROOM: [facility]/4459-1 TODAY'S DATE: 03/19/2019 Hospital Day: LOS: 1 day SUMMARY Patient admitted to the hospital for syncopal episode after his pacemaker was interrogated and found the battery was completely discharge of energy. Cardiology was consulted and is r ecommending a battery/device change. Awaiting pacemaker battery change. SUBJECTIVE Patient evaluated at bedside, patient denying any syncope, presyncope, dizziness or lighthe adedness. Denies any chest pain currently no new symptoms otherwise. Patient to go for pac emaker battery change. Scheduled Medications allopurinol 200 mg Oral Daily ascorbic acid 500 mg Oral Daily aspirin 81 mg Oral Daily with breakfast atorvastatin 20 mg Oral Daily cholecalciferol 1,000 Units Oral Daily metolazone 5 mg Oral Daily PARoxetine 20 mg Oral QAM sodium chloride (PF) 10 mL Intravenous Q8H torsemide 40 mg Oral Daily vancomycin 17 mg/kg Intravenous Once Continuous Infusions dextrose 5 % and 0.45 % NaCl + KCl 10 mEq 75 mL/hr at 03/19/19 0046 PRN Medications acetaminophen OR acetaminophen, HYDROcodone-acetaminophen, ondansetron OR ondansetr on, polyethylene glycol, zolpidem Allergy: Allergies Allergen Reactions Vitamin K And Related Shortness of Breath Lisinopril Rash Warfarin Itching and Rash OBJECTIVE Vitals: Patient Vitals for the past 24 hrs: BP Temp Temp src Pulse Resp SpO2 Weight 03/19/19 1139 118/72 98.1 F (36.7 C) Oral 98 20 90 % - 03/19/19 0714 152/82 98 F (36.7 C) Oral 76 20 91 % - 03/19/19 0423 (!) 150/91 98.6 F (37 C) Oral 85 20 92 % - 03/18/19 2307 123/65 98.5 F (36.9 C) Oral 63 16 92 % - 03/18/19 1925 138/82 98.4 F (36.9 C) Oral 66 20 93 % - 03/18/19 1759 138/82 98.6 F (37 C) Oral 67 22 95 % - 03/18/19 1658 148/88 - - 66 20 94 % - 03/18/19 1533 155/78 96.9 F (36.1 C) Oral 66 16 97 % 116.1 kg (256 lb) I&O Detailed Table: Intake/Output Summary (Last 24 hours) at 03/19/19 1521 Last data filed at 03/19/19 1141 Gross per 24 hour Intake 1038 ml Output 2275 ml Net -1237 ml Patient Vitals for the past 96 hrs: Weight 03/18/19 1533 116.1 kg (256 lb) Hemodynamics Last 24hrs: Examination: Constitutional: Oriented to person, place, and time. appears well-developed and well-nouris hed. HEENT: Head: Normocephalic and atraumatic. Nose: Nose normal. Mouth/Throat: Oropharynx is clear and moist. Eyes: Conjunctivae and EOM are normal. Pupils are equal, round, and reactive to light. Righ t eye exhibits no discharge. Left eye exhibits no discharge. No scleral icterus. Neck: Normal range of motion. Neck supple. No JVD present. No tracheal deviation present. N o thyromegaly present. no cervical adenopathy. Cardiovascular: Normal rate, irregular rhythm, normal heart sounds with S1 and S2, and inta ct distal pulses. Exam reveals no gallop and no friction rub. No murmur heard. Pulmonary/Chest: Effort normal and breath sounds normal. No stridor. No respiratory distres s. no wheezes. no rales. exhibits no tenderness. Abdominal: Soft. Bowel sounds are normal. exhibits no distension and no mass. There is no t enderness. There is no rebound and no guarding. Extremities/Musculoskeletal: Normal range of motion.exhibits no tenderness. exhibits no ed dmitri. Neurological: Alert and oriented to person, place, and time. Has normal reflexes. display s normal reflexes. No cranial nerve deficit. Exhibits normal muscle tone. Coordination norm al. Skin: Skin is warm and dry. No rash noted. No erythema. No pallor. Psychiatric: Has a normal mood and affect. Behavior is normal. Judgment normal. LABS: WBC Date Value Ref Range Status 03/19/2019 8.12 3.80 - 11.00 K/uL Final RBC Date Value Ref Range Status 03/19/2019 3.66 (L) 4.20 - 5.70 M/uL Final HGB Date Value Ref Range Status 03/19/2019 11.3 (L) 13.2 - 17.0 g/dL Final HCT Date Value Ref Range Status 03/19/2019 34.4 (L) 39.0 - 50.0 % Final MCV Date Value Ref Range Status 03/19/2019 94.0 80.0 - 100.0 fl Final MCH Date Value Ref Range Status 03/19/2019 30.7 27.0 - 34.0 pg Final MCHC Date Value Ref Range Status 03/19/2019 32.7 32.0 - 35.5 g/dL Final RDW SD Date Value Ref Range Status 03/19/2019 56.9 (H) 37 - 53 fl Final PLT Date Value Ref Range Status 03/19/2019 190 150 - 400 K/uL Final MPV Date Value Ref Range Status 03/19/2019 8.8 fl Final NEUTROPHILS ABS Date Value Ref Range Status 03/19/2019 6.35 1.90 - 7.40 K/uL Final LYMPHOCYTES ABS Date Value Ref Range Status 03/19/2019 0.36 (L) 1.00 - 3.90 K/uL Final EOSINOPHILS ABS Date Value Ref Range Status 03/19/2019 0.94 (H) 0.00 - 0.50 K/uL Final BASOPHILS ABS Date Value Ref Range Status 03/19/2019 0.04 0.00 - 0.10 K/uL Final Comment: Testing performed at [facility], [address] [place] [address] MORPHOLOGY Date Value Ref Range Status 03/18/2019 NORMAL PLT MORPH Corrected Comment: 1+ OVALO 1+ ANISO 1+ POLY TOXIC GRANULATION GLUCOSE Date Value Ref Range Status 03/19/2019 107 (H) 65 - 99 mg/dL Final BUN Date Value Ref Range Status 03/19/2019 57 (H) 8 - 25 mg/dL Final CREATININE Date Value Ref Range Status 03/19/2019 2.2 (H) 0.70 - 1.30 mg/dL Final BUN/CREAT Date Value Ref Range Status 03/19/2019 26 Final TOTAL PROTEIN Date Value Ref Range Status 03/18/2019 6.2 (L) 6.3 - 8.2 g/dL Final GLOBULIN Date Value Ref Range Status 03/18/2019 2.4 1.3 - 4.9 g/dL Final TBIL Date Value Ref Range Status 03/18/2019 0.4 0.1 - 1.5 mg/dL Final ALT Date Value Ref Range Status 03/18/2019 7 (L) 10 - 65 U/L Final AST Date Value Ref Range Status 03/18/2019 25 10 - 45 U/L Final SODIUM Date Value Ref Range Status 03/19/2019 140 135 - 145 mmol/L Final POTASSIUM Date Value Ref Range Status 03/19/2019 3.1 (L) 3.5 - 4.9 mmol/L Final CHLORIDE Date Value Ref Range Status 03/19/2019 100 99 - 109 mmol/L Final CO2 Date Value Ref Range Status 03/19/2019 35 (H) 23 - 32 mmol/L Final ANION GAP AGAP Date Value Ref Range Status 03/19/2019 8 5 - 20 mmol/L Final @[id number]@ HDL CHOL Date Value Ref Range Status 12/27/2018 39 (L) >40 mg/dL Final CHOLESTEROL Date Value Ref Range Status 12/27/2018 108 <200 mg/dL Final CHOL/HDL Date Value Ref Range Status 10/21/2017 4.1 <4.97 Final VLDL CHOL Date Value Ref Range Status 10/21/2017 26 4 - 40 mg/dL Final NON HDL CHOL Date Value Ref Range Status 10/21/2017 141 <130 Final TSH Date Value Ref Range Status 12/27/2018 1.500 0.450 - 5.100 uIU/mL Final Comment: Testing performed at [facility], [address] [place] [address] TOTAL PROTEIN Date Value Ref Range Status 03/18/2019 6.2 (L) 6.3 - 8.2 g/dL Final TBIL Date Value Ref Range Status 03/18/2019 0.4 0.1 - 1.5 mg/dL Final AST Date Value Ref Range Status 03/18/2019 25 10 - 45 U/L Final ALT Date Value Ref Range Status 03/18/2019 7 (L) 10 - 65 U/L Final Diagnostic: No results found. 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 Likely sour ce of syncope -Cardiology consulted battery change -Amatory monitoring Chronic kidney disease -appears to be stable -Avoid nephrotoxic agents -Monitor kidney function with daily labs. -Consult nephrology PRN Hypertension -Continue home medications -Monitor closely Chronic atrial fibrillation -patient not anticoagulated due to history of GI bleeding. -Cardiology consulted, appreciate recommendations -Telemetry monitoring Obstructive sleep apnea -CPAP Pulmonary hypertension, diastolic and right heart failure. -Cardiology consulted, appreciate recommendations -Continue home medication -Telemetry monitoring Lower extremity wounds -Wound care DVT prophylaxis -Lovenox given yesterday, currently on hold for procedure. CODE STATUS: Full Kye Saxena DO 03/19/2019 3:21 PM onversion Transaction, Provider Unknown - 03/19/2019 2:46 PM PDTFormatting of this note might be different from th e original. Case Management by Radha Flor RN at 03/19/19 0363 Author: Radha Flor RN Service: (none) Author Type: Registered Nurse Filed: 03/19/19 5040 Date of Service: 03/19/19 1446 Status: Signed Condenser Tester: Radha Flor RN (Registered Nurse) 03/19/19 1400 Discharge Planning Evaluation Admitting Diagnosis Syncope (pacemaker replacement) Readmission No Living Arrangements Spouse/significant other Support Systems Spouse/significant other Type of Residence Private residence House type House-1 story Bathrooms on 1st Floor 1-Full Independent with ADL's Yes Independent with Mobility No-comment (cane or walker) Home Care Services No Caregiver after Discharge Yes Caregiver Name Allegra Relationship to Patient spouse Mental Status Oriented Prior functional status independent Power of Laundry Machine Tender No Anticipated Discharge Plan Post Acute Care Needs None at this time Plan communicated to patient/family Yes Resources Financial concerns No Transportation issues No Patient/Family concerns No Prescription Plan Yes Previous home health equipment Yes (Home O2) Equipment Vendor [facility] Vascular access device No Ostomy/Drains/Appliances No Anticipated Disposition Facility Type Home Met with patient, (Allegra)and discussed discharge planning, Pt is a 78 y.o., male wit h syncope episode. Pt is needing pacemaker replaced. Pt is a transfer from [facility]. Pt is from [place], [place]. Patient's PCP is: Kushal Costa Patient's insurance: Medicare Coverage concerns: none Medication coverage/concerns: none Rx Bedside Delivery: Community resources utilized / needed: Home O2 2L-PRN via [facility]. No anticoagulate s @ this time. Assistance in transportation: pov w/ Identification of any specific education / training: cardiac pacemaker Barriers to Discharge / Alternative housing needed: none Anticipated DCP: home Mckenzie Flor RN,BSN,CM Lila Hughes ra, MD - 03/19/2019 7:21 AM PDT Progress Notes by Lila Brady MD at 03/19/19720 Author: Lila Brady MD Service: Cardiology Author Type: Physician Filed: 03/19/1923 Date of Service: 03/19/19720 Status: Signed Condenser Tester: Lila Brady MD (Physician) [facility] Service: Cardiology Progress Note Name of Search Analyst: Lila Brady MD I have seen the patient on 03/19/2019, continues to be hemodynamically stable. Transferred from [facility]. Had syncopal episode yesterday while at a restaurant . Has pacemaker that needs generator change due to battery depleted. States post watchman device implantation, that was recommended given the patient's history of chronic atrial fibrillation and previous GI bleed. Still has unhealed wound in the right LE. Patient previous HPI: Previously hospitalized in the summer of 2016 with GI bleed. His warfarin was stopped. He h ad to be transfused more than once. Colonoscopy revealed polyps which were removed. Warfarin was restarted again however patinehemiah t had a bleeding again. Patient continues to be off warfarin currently on low-dose aspirin. Overall limited activity level. Uses a walker to ambulate. Follows up with nephrology secondary to advanced kidney disease. Was diagnosed with atrial fibrillation more than 10 years ago. He had pacemaker implantatio n secondary to significant pauses. SUBJECTIVE Denies any chest pain or shortness of breath. Current Facility-Administered Medications: acetaminophen (TYLENOL) tablet 650 mg, 650 mg, Oral, Q6H PRN OR acetaminophen (TYL ENOL) suppository 650 mg, 650 mg, Rectal, Q6H PRN, Shar Dawson MD allopurinol (ZYLOPRIM) tablet 200 mg, 200 mg, Oral, Daily, Shar Dawson MD ascorbic acid (VITAMIN C) tablet 500 mg, 500 mg, Oral, Daily, Shar Dawson MD, 50 0 mg at 03/18/192132 aspirin chewable tablet 81 mg, 81 mg, Oral, Daily with breakfast, Shar Dawson MD atorvastatin (LIPITOR) tablet 20 mg, 20 mg, Oral, Daily, Shar Dawson MD, 20 mg a t 03/18/192133 cholecalciferol (VITAMIN D-3) tablet 1,000 Units, 1,000 Units, Oral, Daily, Shar rivera MD, 1,000 Units at 03/18/192132 dextrose 5 % and 0.45 % NaCl with KCl 10 mEq infusion, , Intravenous, Continuous, Home Dawson MD, Last Rate: 75 mL/hr at 03/19/19 0046 HYDROcodone-acetaminophen (NORCO) 5-325 MG per tablet 1 tablet, 1 tablet, Oral, Q6H [place] N, Shar Dawson MD metolazone tablet 5 mg, 5 mg, Oral, Daily, Shar Dawson MD ondansetron (ZOFRAN-ODT) disintegrating tablet 4 mg, 4 mg, Oral, Q6H PRN OR ondans etron (ZOFRAN) injection 4 mg, 4 mg, Intravenous, Q6H PRN, Shar Dawson MD PARoxetine (PAXIL) tablet 20 mg, 20 mg, Oral, QAM, Shar Dawson MD polyethylene glycol (GLYCOLAX) packet 17 g, 17 g, Oral, Daily PRN, Skyler Lau saline lock IV, , , Continuous AND sodium chloride (PF) 0.9 % flush 10 mL, 10 mL, Intravenous, Q8H, Shar Dawson MD torsemide (DEMADEX) tablet 40 mg, 40 mg, Oral, Daily, Shar Dawson MD vancomycin (VANCOCIN) 2 g/250 mL IVPB, 17 mg/kg, Intravenous, Once, Lila Brady MD zolpidem (AMBIEN) tablet 5 mg, 5 mg, Oral, Nightly PRN, Shar Dawson MD OBJECTIVE Vital Signs: BP 152/82 (BP Location: Left upper arm) | Pulse 76 | Temp 98 F (36.7 C) (Oral) | Res p 20 | Wt 116.1 kg (256 lb) | SpO2 91% | BMI 41.32 kg/m Intake/Output Summary (Last 24 hours) at 03/19/19 0721 Last data filed at 03/19/19 0717 Gross per 24 hour Intake 838 ml Output 2275 ml Net -1437 ml Cardiovascular: irregular irregular. Pulses: Radial pulses are 2+ on the right side, and 2+ on the left side. Pulmonary/Chest: Effort normal and breath sounds normal. No wheezes. No rales. Abdominal: Soft. No tenderness. Musculoskeletal: chronic LE edema, surgical dressing the left LE and healed wound in the ri t LE. Neurological: Alert. No cranial nerve deficit. Skin: Warm and dry. DATA Recent Labs Lab 03/18/19 1608 03/16/19 1253 NA 143 140 K 3.5 3.4* CO2 31 31 BUN 55* 74* CREATININE 1.95* 2.34* EGFR 33* 27* MG 2.0 -- Recent Labs Lab 03/19/19 0638 03/18/19 1608 WBC 8.12 7.94 HGB 11.3* 10.9* HCT 34.4* 33.0* MCV 94.0 93.3 PLT 190 196 Recent Labs Lab 03/19/19 0638 03/18/19 1608 CKTOTAL -- 535* CKMB -- 11.3* CKMBINDEX -- 2.1 INR 1.1 1.1 Lab Results Component Value Date CHOL 108 12/27/2018 TRIG 67 12/27/2018 TRIG 128 10/21/2017 LDL 56 12/27/2018 HDL 39 (L) 12/27/2018 GLUF 105 (H) 03/18/2019 HGBA1C 5.5 12/27/2018 TSH 1.500 12/27/2018 EK03/18/2019 Reviewed showed atrial fibrillation with controlled rate. Last Echo: 01/23/2017 LV is mildly dilated, mild left ventricular hypertrophy, mildly impaired systolic function EF 45-50%. RV is severely enlarged with moderate impaired systolic function, severe pulmonar y hypertension RVSP 77 mmHg. Mild TR. Last stress test: Last cath: 05/12/2018 States post 33 mm watchman device implantation. Carotid US: AAA screening: Lower extremity US: Pacemaker 2007: Guidant 1190, SN [id number] Last time interrogated 02/04/2018 Ventricular paced 41%. Battery life is 0.5 year ASSESSMENT & PLAN Patient is 78 y.o. with the following medical problems: 1. Chronic atrial fibrillation CHADSVASc score of 5. S/P Watchman Device. 2. 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 Needs a gen change. 3. Syncope likely due to above. 4. Chronic LE edema. 5. Recurrent GIB, off anticoagulation. 6. 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 NYH class III, stage C. 7. Hypertension. Blood pressure is controlled. 8. CKD stage IV. Follows up with nephrology. 9. Morbid obesity. 10. Severe pulmonary hypertension. 11. Obstructive sleep apnea, non complaint with CPAP. Recommendations: Patient is not pacemaker dependent. Will need a battery generator change. Patient currently is asymptomatic. Plan for Gen change later today. IV antibiotics ordered. Plan for Cephalexin since patient has chronic wound in the LEs. Patient has chronic lower extremity edema, currently on torsemide 20 mg bid and metolazone 5 mg daily. Will continue to follow up with Nephrology. Off metoprolol and rate is controlled. Consider wound care for unhealed LE ulcer. Further recommendation will follow. Code Status: Full Code Lila Brady MD 03/19/2019 onversion Transac tion, Provider Unknown - 03/19/2019 6:50 AM PDTFormatting of this note might be different f rom the original. Nurse Progress Note by Akil Castanon RN at 03/19/19649 Author: Akil Castanon RN Service: (none) Author Type: Registered Nurse Filed: 03/19/19650 Date of Service: 03/19/19649 Status: Signed Condenser Tester: Akil Castanon RN (Registered Nurse) Pt with uneventful night. Pt in rate-controlled a-fib overnight; VSS. Plan for pacemaker placement with Dr. Brady today. 24 hour chart review complete. onver sarah Transaction, Provider Unknown - 03/18/2019 6:26 PM PDT Pharmacy Note by Blanca Muller RPH at 03/18/191825 Author: Blanca Muller RPH Service: Pharmacy Author Type: Pharmacist Filed: 03/18/191825 Date of Service: 03/18/191825 Status: Signed Condenser Tester: Blanca Muller RPH (Pharmacist) Clinical Pharmacy Note: Renal Monitoring Ht Readings from Last 1 Encounters: 03/03/19 1.676 m (5' 6") Wt Readings from Last 1 Encounters: 03/18/19 116.1 kg (256 lb) Serum creatinine: 1.95 mg/dL (H) 03/18/19 1608 Estimated creatinine clearance: 36.8 mL/min (A) Pharmacy dosing for renal function per Dr. Dawson At this time no renal dose adjustments are required. No changes made today. Pharmacy will c salvador monitoring patient for appropriate dosing per renal function. Blanca Muller [facility] 03/18/2019 6:26 PM Larry armstrong in this encounter Plan of Treatment +--------+ + + + + | Date | Type | Specialty | Care Team | Description | +--------+ + + + + | 11/29/ | Office | Nephrology | Danny Gandara MD | | | 2019 | Visit | | [address] [facility] | | | | | | [address] [place], [place] | | | | | | [address] | | | | | | | | +--------+ + + + + | 01/09/ | Procedure | Cardiology | | | | 2019 | visit | | | | +--------+ + + + + | 04/10/ | Procedure | Cardiology | | | | 2020 | visit | | | | +--------+ + + + + documented as of this encounter Procedures + +--------+ + + + | Procedure Name | Priori | Date/Time | Associated Diagnosis | Comments | | | ty | | | | + +--------+ + + + | EXTERNAL LAB: CBC | Routin | 03/20/2019 | | Results for this | | | e | 5:53 AM | | procedure are in the | | | | PDT | | results section. | + +--------+ + + + | BASIC METABOLIC | Routin | 03/20/2019 | | Results for this | | PANEL | e | 5:53 AM | | procedure are in the | | | | PDT | | results section. | + +--------+ + + + | CV EP PROCEDURE | Routin | 03/19/2019 | | Results for this | | | e | 5:06 PM | | procedure are in the | | | | PDT | | results section. | + +--------+ + + + | EXTERNAL LAB: CBC | Routin | 03/19/2019 | | Results for this | | | e | 6:38 AM | | procedure are in the | | | | PDT | | results section. | + +--------+ + + + | PROTIME INR | Routin | 03/19/2019 | | Results for this | | | e | 6:38 AM | | procedure are in the | | | | PDT | | results section. | + +--------+ + + + | PHOSPHORUS | Routin | 03/19/2019 | | Results for this | | | e | 6:38 AM | | procedure are in the | | | | PDT | | results section. | + +--------+ + + + | MAGNESIUM | Routin | 03/19/2019 | | Results for this | | | e | 6:38 AM | | procedure are in the | | | | PDT | | results section. | + +--------+ + + + | HEMOGLOBIN A1C | Routin | 03/19/2019 | | Results for this | | | e | 6:38 AM | | procedure are in the | | | | PDT | | results section. | + +--------+ + + + | BASIC METABOLIC | Routin | 03/19/2019 | | Results for this | | PANEL | e | 6:38 AM | | procedure are in the | | | | PDT | | results section. | + +--------+ + + + | ECG 12 LEAD | Routin | 03/18/2019 | | Results for this | | | e | 4:38 PM | | procedure are in the | | | | PDT | | results section. | + +--------+ + + + | HISTORICAL LAB PANEL | Routin | 03/18/2019 | | Results for this | | RESULT | e | 4:08 PM | | procedure are in the | | | | PDT | | results section. | + +--------+ + + + | PHOSPHORUS | Routin | 03/18/2019 | | Results for this | | | e | 4:08 PM | | procedure are in the | | | | PDT | | results section. | + +--------+ + + + | MAGNESIUM | Routin | 03/18/2019 | | Results for this | | | e | 4:08 PM | | procedure are in the | | | | PDT | | results section. | + +--------+ + + + documented in this encounter Results External Lab: CBC (03/20/2019 5:53 AM PDT) + + + + + + | Component | Value | Ref Range | Performed | Pathologist | | | | | At | Signature | + + + + + + | WBC | 8.40 | 3.80 - 11.00 | EXTERNAL | | | | | K/uL | LAB | | + + + + + + | RED CELL | 3.41 (L) | 4.20 - 5.70 | EXTERNAL | | | COUNT | | M/uL | LAB | | + + + + + + | Hgb | 10.6 (L) | 13.2 - 17.0 | EXTERNAL | | | | | g/dL | LAB | | + + + + + + | Hematocrit, | 31.7 (L) | 39.0 - 50.0 % | EXTERNAL | | | POC | | | LAB | | + + + + + + | MCV | 93.1 | 80.0 - 100.0 fl | EXTERNAL | | | | | | LAB | | + + + + + + | MCH | 31.0 | 27.0 - 34.0 pg | EXTERNAL | | | | | | LAB | | + + + + + + | MCHC | 33.3 | 32.0 - 35.5 | EXTERNAL | | | | | g/dL | LAB | | + + + + + + | RDW-CV | 56.9 (H) | 37 - 53 fl | EXTERNAL | | | | | | LAB | | + + + + + + | Platelet | 171 | 150 - 400 K/uL | EXTERNAL | | | Count | | | LAB | | | Plasma | | | | | + + + + + + | MPV | 8.9 | fl | EXTERNAL | | | | | | LAB | | + + + + + + | Differentia | AUTOMATED | | EXTERNAL | | | l Type | | | LAB | | + + + + + + | % Segmented | 73.38 | % | EXTERNAL | | | | | | LAB | | | Neutrophils | | | | | + + + + + + | % | 4.35 | % | EXTERNAL | | | Lymphocytes | | | LAB | | + + + + + + | % Monocytes | 5.98 | % | EXTERNAL | | | | | | LAB | | + + + + + + | % | 15.86 | % | EXTERNAL | | | Eosinophils | | | LAB | | + + + + + + | % Basophils | 0.43 | % | EXTERNAL | | | | | | LAB | | + + + + + + | Absolute | 6.16 | 1.90 - 7.40 | EXTERNAL | | | Segmented | | K/uL | LAB | | | Neutrophils | | | | | + + + + + + | Absolute | 0.37 (L) | 1.00 - 3.90 | EXTERNAL | | | Lymphocytes | | K/uL | LAB | | + + + + + + | Absolute | 0.50 | 0.00 - 0.80 | EXTERNAL | | | Monocytes | | K/uL | LAB | | + + + + + + | Absolute | 1.33 (H) | 0.00 - 0.50 | EXTERNAL | | | Eosinophils | | K/uL | LAB | | + + + + + + | Absolute | 0.04Comment: Testing | 0.00 - 0.10 | EXTERNAL | | | Basophils | performed at [facility], [address] | [address] | LAB | | | | [address], | | | | | | [place] [address] | | | | + + + [...] + +---------+ + + Basic Metabolic Panel (03/20/2019 5:53 AM PDT) + + + + + [...] + + | Glucose, | 81 | 65 - 99 mg/dL | EXTERNAL | | | Fasting | | | LAB | | + + + + + + | BUN | 59 (H) | 8 - 25 mg/dL | EXTERNAL | | | | | | LAB | | + + + + + + | Creatinine | 2.2 (H) | 0.70 - 1.30 | EXTERNAL | | | | | mg/dL | LAB | | + + + + + + | BUN/Creatin | 27 | | EXTERNAL | | | ine [...] | | | | | performed at [facility], [address] | | | | | | [address], | | | | | | [place] [address] | | | | + + + + + + + + | Specimen | + + | Blood specimen | | (specimen) | + + + +---------+ + + | Performing | Address | City/State/Zipcode | Phone Number | | Organization | | | | + +---------+ + + | EXTERNAL LAB | | | | + +---------+ + + CV EP PROCEDURE (03/19/2019 5:06 PM PDT) + + | Specimen | + + | | + + + + + | Narrative | Performed At | + + + | | | | | | | PROCEDURE: Generator pacemaker change due to end of battery life. | | | DESCRIPTION OF PROCEDURE: The patient was brought electively to | | | the heart catheterization lab. Consent was obtained after reviewing | | | risks and benefits. Time-out was done at the bedside. The | | | patient was prepped in the usual sterile manner. Anesthesia was | | | available and managed sedation for the patient. After performing a | | | time-out and after appropriate sedation, left upper chest above the | | | pacemaker capsule was anesthetized with 1 percent lidocaine with | | | epinephrine. Using a #10 blade one initial incision was made above | | | the pacemaker previous above the pacemaker capsule. Using the Plasma | | | Blade the pacemaker was isolated and removed out of the pocket, was | | | taken out, the lead was removed and the new pacemaker device was | | | attached and appropriate measurements were interrogated and confirmed. | | | A new pacemaker was placed in the pocket, bacitracin solution was | | | used to wash out the previous pacemaker pocket. Next 4-0 sutures | | | were used for deep suturing and Vicryl bioabsorbable suture was used | | | for superficial suturing. Steri-Strips were applied. The patient | | | tolerated the procedure well without complication. COMPLICATIONS: | | | None. ESTIMATED BLOOD LOSS: Less than 10 mL. IMPLANTED | | | PACEMAKER: [employer] scientific accolade MRI SRIS#1, model L310, | | | serial #[id number]. The patient had single lead RV pacemaker which is | | | Guidant Flextend IS bipolar positive, 59 cm, model number is 4088, | | | serial #[id number]. PROGRAM PARAMETERS: Pacemaker is programmed at | | | VVI 60 beats per minute, sensitivity 2.5 millivolt, output 3.5 volt | | | at 0.4 millisecond. CONCLUSION: This is successful exchange of | | | generator change. RECOMMENDATIONS: The patient was given IV | | | vancomycin through previous to the procedure and will be given three | | | doses of cefazolin given his high risk infection and previous chronic | | | cellulitis in his lower extremities. He will be discharged home in | | | the morning and can be restarted on his rate control with metoprolol. | | | He will be off anticoagulation secondary to previous GI bleed. | | | Read by LILA BRADY MD 03/19/2019 05:18 P Electronically | | | signed by Lila Brady MD on 03/29/2019 6:34 AM | | + + + + + | Procedure Note | + + | Edgardo Piper Conversion - 06/09/2019 4:07 PM PDT | | | | PROCEDURE: Generator pacemaker change due to end of battery life. | | | | DESCRIPTION OF PROCEDURE: The patient was brought electively to the heart | | catheterization lab. Consent was obtained after reviewing risks and | | benefits. Time-out was done at the bedside. The patient was prepped in | | the usual sterile manner. Anesthesia was available and managed sedation | | for the patient. After performing a time-out and after appropriate | | sedation, left upper chest above the pacemaker capsule was anesthetized | | with 1 percent lidocaine with epinephrine. Using a #10 blade one initial | | incision was made above the pacemaker previous above the pacemaker capsule. | | Using the Plasma Blade the pacemaker was isolated and removed out of the | | pocket, was taken out, the lead was removed and the new pacemaker device | | was attached and appropriate measurements were interrogated and confirmed. | | A new pacemaker was placed in the pocket, bacitracin solution was used to | | wash out the previous pacemaker pocket. Next 4-0 sutures were used for | | deep suturing and Vicryl bioabsorbable suture was used for superficial | | suturing. Steri-Strips were applied. The patient tolerated the procedure | | well without complication. | | | | COMPLICATIONS: None. | | | | ESTIMATED BLOOD LOSS: Less than 10 mL. | | | | IMPLANTED PACEMAKER: [employer] scientific accolade MRI SRIS#1, model L310, | | serial #[id number]. The patient had single lead RV pacemaker which is Guidant | | Flextend IS bipolar positive, 59 cm, model number is 4088, serial #[id number]. | | | | PROGRAM PARAMETERS: Pacemaker is programmed at VVI 60 beats per minute, | | sensitivity 2.5 millivolt, output 3.5 volt at 0.4 millisecond. | | | | CONCLUSION: This is successful exchange of generator change. | | | | RECOMMENDATIONS: The patient was given IV vancomycin through previous to | | the procedure and will be given three doses of cefazolin given his high | | risk infection and previous chronic cellulitis in his lower extremities. | | He will be discharged home in the morning and can be restarted on his rate | | control with metoprolol. He will be off anticoagulation secondary to | | previous GI bleed. | | | | Read by LILA BRADY MD 03/19/2019 05:18 P | | | | | + + Protime INR (03/19/2019 6:38 AM PDT) + + + + + + | Component | Value | Ref Range | Performed | Pathologist | | | | | At | Signature | + + + + + + | INR | 1.1Comment: REFERENCE | | EXTERNAL | | | | RANGE:0.9 - 1.2 | | LAB | | | | NON-ANTICOAGULATED2.0 | | | | | | - 3.0 ALL OTHER | | | | | | THERAPEUTIC | | | | | | INDICATIONS2.5 - 3.5 | | | | | | MECHANICAL HEART VALVES, | | | | | | RECURRENT OR SYSTEMIC | | | | | | EMBOLISMTesting | | | | | | performed at [facility];[id number] | | | | | [address];[place], [place] | | | | | | [address] | | | | + + + [...] + +---------+ + + External Lab: DORA (03/19/2019 6:38 AM PDT) + + + + + + | Component | Value | Ref Range | Performed | Pathologist | | | | | At | Signature | + + + + + + | WBC | 8.12 | 3.80 - 11.00 | EXTERNAL | | | | | K/uL | LAB | | + + + + + + | RED CELL | 3.66 (L) | 4.20 - 5.70 | EXTERNAL | | | COUNT | | M/uL | LAB | | + + + + + + | Hgb | 11.3 (L) | 13.2 - 17.0 | EXTERNAL | | | | | g/dL | LAB | | + + + + + + | Hematocrit, | 34.4 (L) | 39.0 - 50.0 % | EXTERNAL | | | POC | | | LAB | | + + + + + + | MCV | 94.0 | 80.0 - 100.0 fl | EXTERNAL | | | | | | LAB | | + + + + + + | MCH | 30.7 | 27.0 - 34.0 pg | EXTERNAL | | | | | | LAB | | + + + + + + | MCHC | 32.7 | 32.0 - 35.5 | EXTERNAL | | | | | g/dL | LAB | | + + + + + + | RDW-CV | 56.9 (H) | 37 - 53 fl | [...] + + + | % Segmented | 78.27 | % | EXTERNAL | | | | | | LAB | | | Neutrophils | | | | | + + + + + + | % | 4.48 | % | EXTERNAL | | | Lymphocytes | | | LAB | | + + + + + + | % Monocytes | 5.09 | % | EXTERNAL | | | | | | LAB | | + + + + + + | % | 11.62 | % | EXTERNAL | | | Eosinophils | | | LAB | | + + + + + + | % Basophils | 0.54 | % | EXTERNAL | | | | | | LAB | | + + + + + + | Absolute | 6.35 | 1.90 - 7.40 | EXTERNAL | | | Segmented | | K/uL | LAB | | | Neutrophils | | | | | + + + + + + | Absolute | 0.36 (L) | 1.00 - 3.90 | EXTERNAL | | | Lymphocytes | | K/uL | LAB | | + + + + + + | Absolute | 0.41 | 0.00 - 0.80 | EXTERNAL | | | Monocytes | | K/uL | LAB | | + + + + + + | Absolute | 0.94 (H) | 0.00 - 0.50 | EXTERNAL | | | Eosinophils | | K/uL | LAB | | + + + + + + | Absolute | 0.04Comment: Testing | 0.00 - 0.10 | EXTERNAL | | | Basophils | performed at [facility], [address] | [address] | LAB | | | | [address], | | | | | | [place] [address] | | | | + + + + + + + + | Specimen | + + | Blood specimen | | (specimen) | + + + +---------+ + + | Performing | Address | City/State/Zipcode | Phone Number | | Organization | | | | + +---------+ + + | EXTERNAL LAB | | | | + +---------+ + + Phosphorus (03/19/2019 6:38 AM PDT) + + + + + + | Component | Value | Ref Range | Performed | Pathologist | | | | | At | Signature | + + + + + + | PHOSPHORUS | 3.2Comment: Testing | 2.3 - 4.8 mg/dL | EXTERNAL | | | | performed at [facility], [address] | | LAB | | | | [address], | | | | | | [place] [address] | | | | + + + + + + + + | Specimen | + + | Blood specimen | | (specimen) | + + + +---------+ + + | Performing | Address | City/State/Zipcode | Phone Number | | Organization | | | | + +---------+ + + | EXTERNAL LAB | | | | + +---------+ + + Magnesium (03/19/2019 6:38 AM PDT) + + + + + + | Component | Value | Ref Range | Performed | Pathologist | | | | | At | Signature | + + + + + + | Magnesium | 2.2Comment: Testing | 1.7 - 2.4 mg/dL | EXTERNAL | | | | performed at [facility], [address] | | LAB | | | | [address], | | | | | | [place] [address] | | | | + + + + + + + + | Specimen | + + | Blood specimen | | (specimen) | + + + +---------+ + + | Performing | Address | City/State/Zipcode | Phone Number | | Organization | | | | + +---------+ + + | EXTERNAL LAB | | | | + +---------+ + + Hemoglobin A1C (03/19/2019 6:38 AM PDT) + + + + + + | Component | Value | Ref Range | Performed | Pathologist | | | | | At | Signature | + + + + + + | Hemoglobin | 5.1Comment: HbA1c method | 4.0 - 6.0 % [...] + + + + | Glycohemogl | 100Comment: Estimated | mg/dL | EXTERNAL | | | obin | Average Glucose | | LAB | | | (GHb),Total | calculated from | | | | | | hemoglobin A1c by use of | | | | | | the ADA recommended | | | | | | formula.Testing | | | | | | performed at [facility], [address] | | | | | | [facility], | | | | | | [place] [address] | | | | + + + [...] + +---------+ + + Basic Metabolic Panel (03/19/2019 6:38 AM PDT) + + + + + + | Component | Value | Ref Range | Performed | Pathologist | | | | | At | Signature | + + + + + + | Na | 140 | 135 - 145 | EXTERNAL | | | | | mmol/L | LAB | | + + + + + + | K | 3.1 (L) | 3.5 - 4.9 | EXTERNAL [...] + + + | Anion Gap | 8 | 5 - 20 mmol/L | EXTERNAL | | | | | | LAB | | + + + + + + | Glucose, | 107 (H) | 65 - 99 mg/dL | EXTERNAL | | | Fasting | | | LAB | | + + + + + + | BUN | 57 (H) | 8 - 25 mg/dL | EXTERNAL | | | | | | LAB | | + + + + + + | Creatinine | 2.2 (H) | 0.70 - 1.30 | EXTERNAL | | | | | mg/dL | LAB | | + + + + + + | BUN/Creatin | 26 | | EXTERNAL | | | ine [...] | | | | | performed at [facility], [address] | | | | | | [facility], | | | | | | [place] [address] | | | | + + + [...] + +---------+ + + ECG 12 lead (03/18/2019 4:38 PM PDT) + + + + + + | Component | Value | Ref Range | Performed | Pathologist | | | | | At | Signature | + + + + + + | DIAGNOSIS: | Atrial fibrillation with | | EXTERNAL | | | | a competing junctional | | LAB | | | | pacemaker with | | | | | | ventricular escape | | | | | | complexesSeptal infarct | | | | | | (cited on or before | | | | | | 28-DEC-2018)Abnormal | | | | | | ECGWhen compared with | | | | | | ECG of 28-DEC-2018 | | | | | | 12:26,Sinus rhythm is | | | | | | now with ventricular | | | | | | escape complexesThis ECG | | | | | | contains Unconfirmed | | | | | | Interpretation | | | | | | Statements. See ED | | | | | | Record for Physician | | | | | | Interpretation. | | | | | | Confirmed by MUSE READ | | | | | | ONLY, -COMPUTER ([id number]), | | | | | | design editor Joel Mclean | | | | | | Shubham ([id number]) on 03/19/2019 | | | | | | 2:58:01 AM | | | | + + + + + + + + | Specimen | + + | | + + + + + | Narrative | Performed At | + + + | Historically converted procedure from [facility] Epic environment | EXTERNAL LAB | + + + + +---------+ + + | Performing | Address | City/State/Zipcode | Phone Number | | Organization | | | | + +---------+ + + | EXTERNAL LAB | | | | + +---------+ + + HISTORICAL LAB PANEL RESULT (03/18/2019 4:08 PM PDT) + + + + + -+ | Component | Value | Ref Range | Performed | Pathologist | | | | | At | Signature | + + + + + -+ | WBC | 7.94 | 3.80 - 11.00 | EXTERNAL | | | | | K/uL | LAB | | + + + + + -+ | RED CELL | 3.53 (L) | 4.20 - 5.70 | EXTERNAL | | | COUNT | | M/uL | LAB | | + + + + + -+ | Hgb | 10.9 (L) | 13.2 - 17.0 | EXTERNAL | | | | | g/dL | LAB | | + + + + + -+ | Hematocrit, | 33.0 (L) | 39.0 - 50.0 % | EXTERNAL | | | POC | | | LAB | | + + + + + -+ | MCV | 93.3 | 80.0 - 100.0 fl | EXTERNAL | | | | | | LAB | | + + + + + -+ | MCH | 30.8 | 27.0 - 34.0 pg | EXTERNAL | | | | | | LAB | | + + + + + -+ | MCHC | 33.0 | 32.0 - 35.5 | EXTERNAL | | | | | g/dL | LAB | | + + + + + -+ | RDW-CV | 59.1 (H) | 37 - 53 fl | EXTERNAL | | | | | | LAB | | + + + + + -+ | Platelet | 196 | 150 - 400 K/uL | EXTERNAL | | | Count | | | LAB | | | Plasma | | | | | + + + + + -+ | MPV | 8.5 | fl | EXTERNAL | | | | | | LAB | | + + + + + -+ | Differentia | AUTOMATED | | EXTERNAL | | | l Type | | | LAB | | + + + + + -+ | % Segmented | 76.65 | % | EXTERNAL | | | | | | LAB | | | Neutrophils | | | | | + + + + + -+ | % | 4.36 | % | EXTERNAL | | | Lymphocytes | | | LAB | | + + + + + -+ | % Monocytes | 5.68 | % | EXTERNAL | | | | | | LAB | | + + + + + -+ | % | 12.46 | % | EXTERNAL | | | Eosinophils | | | LAB | | + + + + + -+ | % Basophils | 0.85 | % | EXTERNAL | | | | | | LAB | | + + + + + -+ | Absolute | 6.08 | 1.90 - 7.40 | EXTERNAL | | | Segmented | | K/uL | LAB | | | Neutrophils | | | | | + + + + + -+ | Absolute | 0.35 (L) | 1.00 - 3.90 | EXTERNAL | | | Lymphocytes | | K/uL | LAB | | + + + + + -+ | Absolute | 0.45 | 0.00 - 0.80 | EXTERNAL | | | Monocytes | | K/uL | LAB | | + + + + + -+ | Absolute | 0.99 (H) | 0.00 - 0.50 | EXTERNAL | | | Eosinophils | | K/uL | LAB | | + + + + + -+ | Absolute | 0.07 | 0.00 - 0.10 | EXTERNAL | | | Basophils | | K/uL | LAB | | + + + + + -+ | RBC | NORMAL PLT MORPH | | EXTERNAL | | | Morphology | Comment: | | LAB | | | | 1+ | | | | | | OVALO | | | | | | 1+ | | | | | | ANISO | | | | | | 1+ | | | | | | POLY | | | | | | TOXIC GRANULATION | | | | | | | | | | + + + + + -+ | Platelet | ADEQUATE | | EXTERNAL | | | Estimate | | | LAB | | + + + + + -+ | Na | 143 | 135 - 145 | EXTERNAL | | | | | mmol/L | LAB | | + + + + + -+ | K | 3.5 | 3.5 - 4.9 | EXTERNAL | | | | | mmol/L | LAB | | + + + + + -+ | Cl | 104 | 99 - 109 mmol/L | EXTERNAL | | | | | | LAB | | + + + + + -+ | CO2 | 31 | 23 - 32 mmol/L | EXTERNAL | | | | | | LAB | | + + + + + -+ | Anion Gap | 12 | 5 - 20 mmol/L | EXTERNAL | | | | | | LAB | | + + + + + -+ | Glucose, | 105 (H) | 65 - 99 mg/dL | EXTERNAL | | | Fasting | | | LAB | | + + + + + -+ | BUN | 55 (H) | 8 - 25 mg/dL | EXTERNAL | | | | | | LAB | | + + + + + -+ | Creatinine | 1.95 (H) | 0.70 - 1.30 | EXTERNAL | | | | | mg/dL | LAB | | + + + + + -+ | BUN/Creatin | 28 | | EXTERNAL | | | ine Ratio | | | LAB | | + + + + + -+ | Calcium | 8.7 | 8.5 - 10.5 | EXTERNAL | | | | | mg/dL | LAB | | + + + + + -+ | Protein, | 6.2 (L) | 6.3 - 8.2 g/dL | EXTERNAL | | | Total | | | LAB | | + + + + + -+ | Albumin | 3.8 | 3.3 - 4.8 g/dL | EXTERNAL | | | | | | LAB | | + + + + + -+ | Globulin | 2.4 | 1.3 - 4.9 g/dL | EXTERNAL | | | | | | LAB | | + + + + + -+ | A/G Ratio | 1.6 | 1.0 - 2.4 | EXTERNAL | | | | | | LAB | | + + + + + -+ | Bilirubin | 0.4 | 0.1 - 1.5 mg/dL | EXTERNAL | | | Total | | | LAB | | + + + + + -+ | ALP, | 87 | 35 - 115 U/L | EXTERNAL | | | External | | | LAB | | + + + + + -+ | AST | 25 | 10 - 45 U/L | EXTERNAL | | | | | | LAB | | + + + + + -+ | ALT | 7 (L) | 10 - 65 U/L | EXTERNAL | | | | | | LAB | | + + + + + -+ | Estimated | 33 (L)Comment: GFR <60: | mL/min/1.73m2 | EXTERNAL [...] traceable | | | | | | equation. | | | | + + + + + -+ | CK, Total | 535 (H) | 55 - 400 U/L | EXTERNAL | | | | | | LAB | | + + + + + -+ | INR | 1.1Comment: REFERENCE | | EXTERNAL | | | | RANGE:0.9 - 1.2 | | LAB | | | | NON-ANTICOAGULATED2.0 | | | | | | - 3.0 ALL OTHER | | | | | | THERAPEUTIC | | | | | | INDICATIONS2.5 - 3.5 | | | | | | MECHANICAL HEART VALVES, | | | | | | RECURRENT OR SYSTEMIC | | | | | | EMBOLISM | | | | + + + + + -+ | aPTT, | 29 | 23 - 32 seconds | EXTERNAL | | | Patient | | | LAB | | + + + + + -+ | CK-MB | 11.3 (H) | 0.5 - 3.6 ng/mL | EXTERNAL | | | | | | LAB | | + + + + + -+ | CK-MB Index | 2.1Comment: CK INDEX | | EXTERNAL | | | | INTERPRETATION: | | LAB | | | | MMB ng/mL | | | | | | | | | | | |CK INDEX INTERPRETATION: | | | | | | MMB ng/mL | | | | | | | | | | + + + + + -+ + + | Specimen | + + | | + + + +---------+ + + | Performing | Address | City/State/Zipcode | Phone Number | | Organization | | | | + +---------+ + + | EXTERNAL LAB | | | | + +---------+ + + Phosphorus (03/18/2019 4:08 PM PDT) + + + + + + | Component | Value | Ref Range | Performed | Pathologist | | | | | At | Signature | + + + + + + | PHOSPHORUS | 3.1Comment: Testing | 2.3 - 4.8 mg/dL | EXTERNAL | | | | performed at [facility];[address] | | LAB | | | | [address];[place], [place] | | | | | | [address] | | | | + + + + + + + + | Specimen | + + | Blood specimen | | (specimen) | + + + +---------+ + + | Performing | Address | City/State/Zipcode | Phone Number | | Organization | | | | + +---------+ + + | EXTERNAL LAB | | | | + +---------+ + + Magnesium (03/18/2019 4:08 PM PDT) + + + + + + | Component | Value | Ref Range | Performed | Pathologist | | | | | At | Signature | + + + + + + | Magnesium | 2.0Comment: Testing | 1.7 - 2.4 mg/dL | EXTERNAL | | | | performed at [facility];[address] | | LAB | | | | [address];[place] | | | | | | [address] | | | | + + + [...] + | Diagnosis | + + | Syncope, unspecified syncope type | + + | Pacemaker failure, initial encounter | + + | Stage 3 chronic kidney disease (HCC) | + + documented in this encounter
--- OUTSIDE RECORDS SUMMARY | ~2019-10-13 | XMS | Encounter Summary ---
Demographics + + + | Address | [address] | | | [place] [address] | + + + | Home Phone | | + + + | Preferred Language | Unknown | + + + | Marital Status | | + + + | Presybeterian Affiliation | 1041 | + + + | Race | Unknown | + + + | Ethnic Group | Unknown | + + + Author + + + | Author | [facility] | | | and [place] | + + + | Organization | [facility] | | | [...] Team Providers + +------+ + | Care Heel Blacker Name | Role | Phone | + +------+ + | Kushal Costa MD | PCP | | + +------+ + Reason for Visit +--------+ + | Reason | Comments | +--------+ + | Other | Facility call | +--------+ + Encounter Details +--------+ + + + + | Date | Type | Department | Care Team | Description | +--------+ + + + + | 09/06/ | Telephone | [facility] | Danny Gandara MD | Other (Facility call | | 2019 | | NEPHROLOGY [place] | [address] [place] | ) | | | | [address] [place] | [address] [place], [place] | | | | | [address] [place], [place] | [address] | | | | | [address] | | | | | | [phone] | | | +--------+ + + + [...] | +--------+ + + + + | 02/10/ | Office | Nephrology | Danny Gandara MD | | | 2019 | Visit | | [address] [facility] | | | | | | [facility] | | | | | | [address] | | | | | | | [...]
--- OUTSIDE RECORDS SUMMARY | ~2019-10-13 | XMS | Encounter Summary ---
Demographics + + + | Address | [address] | | | [place] [address] | + + + | Home Phone | | + + + | Preferred Language | Unknown | + + + | Marital Status | | + + + | Cheondoism Affiliation | 1041 | + + + | Race | Unknown | + + + | Ethnic Group | Unknown | + + + Author + + + | Author | [facility] | | | and [place] | + + + | Organization | [facility] | | | [...] Team Providers + +------+ + | Care Golf Club Maker Name | Role | Phone | + +------+ + | Kushal Costa MD | PCP | | + +------+ + Encounter Details +--------+ + + + + | Date | Type | Department | Care Team | Description | +--------+ + + + + | 01/28/ | Orders Only | [facility] | Conversion | | | 2019 | | NEPHROLOGY [place] | Transaction, | | | | | [address] [place] | Provider Unknown | | | | | [address] [facility] [place] | | | | | | [address] | (Fax) | | | | | [phone] | | | +--------+ + + + [...] 2019 | Visit | | [address] [facility] | | | | | | 160 [place] | | | | | | [address] | | | | | | | [...] | EXTERNAL LAB: CBC | Routin | 01/28/2019 | | Results for this | | | e | 12:00 AM | | [...] in this encounter Results External Lab: CBC (01/28/2019 12:00 AM PDT) + + + + + + | Component | Value | Ref Range | Performed | Pathologist | | | | | At | Signature | + + + + + + | WBC | 9.1 | 4.5 - 11.0 10 | EXTERNAL | | | | | | LAB | | + + + + + + | RED CELL | 3.74 (A) | 7.3 - 5.7 10 | EXTERNAL | | | COUNT | | | LAB | | + + + + + + | Hgb | 11.3 (A) | 13.5 - 18.0 | EXTERNAL | | | | | g/dL | LAB | | + + + + + + | Hematocrit, | 34.2 (A) | 41 - 50 % | EXTERNAL | | | POC | | | LAB | | + + + + + + | MCV | 91.5 | 81 - 99 fL | EXTERNAL [...] + + + + | Platelet | 218 | 140 - 440 K/ L | EXTERNAL | | | Count | | | LAB | | | Plasma | | | | | + + + + + + | RDW-CV | 17.9 (A) | 10.5 - 15.0 [...] + + + | % Segmented | 92.0 (A) | 39 - 80 % | EXTERNAL | | | | | | LAB | | | Neutrophils | | | | | + + + + + + | % | 3.3 (A) | 24 - 44 % | EXTERNAL | | | Lymphocytes | | | LAB | | + + + + + + | % Monocytes | 4.4 | 0 - 12 % | EXTERNAL | | | | | | LAB | | + + + + + + | % | 0.1 | 0 - 6 % | EXTERNAL | | | Eosinophils | | | LAB | | + + + + + + | % Basophils | 0.2 | 0 - 2 % | EXTERNAL [...] + +---------+ + + Comprehensive Metabolic Panel (01/28/2019 12:00 AM PDT) + + + + + + | Component | Value | Ref Range | Performed | Pathologist | | | | | At | Signature | + + + + + + | Glucose, | 90 | 70 - 100 mg/dL | EXTERNAL | | | Fasting | | | LAB | | + + + + + + | BUN | 50 (A) | 6 - 23 mg/dL | EXTERNAL | | | | | | LAB | | + + + + + + | Creatinine | 1.84 (A) | 0.70 - 1.18 | EXTERNAL | | | | | mg/dL | LAB | | + + + + + + | BUN/Creatin | 27.2 | 6.0 - 28.6 | EXTERNAL | | | ine Ratio | | | LAB | | + + + + + + | Calcium | 9.3 | 8.5 - 10.3 | EXTERNAL | | | | | mg/dL | LAB | | + + + + + + | Protein, | 6.6 | 6.0 - 8.3 g/dL | EXTERNAL | | | Total | | | LAB | | + + + + + + | Albumin | 3.7 | 3.5 - 5.0 | EXTERNAL | | | | | | LAB | | + + + + + + | Globulin | 2.9 | 1.8 - 3.5 | EXTERNAL | | | | | | LAB | | + + + + + + | A/G Ratio | 1.3 | 1.1 - 2.4 | EXTERNAL | | | | | | LAB | | + + + + + + | Bilirubin | 0.5 | 0.0 - 1.2 mg/dL | EXTERNAL | | | Total | | | LAB | | + + + + + + | ALP, | 59 | 31 - 120 | EXTERNAL | | | External | | | LAB | | + + + + + + | ALT | 9 | 7 - 52 U/L | EXTERNAL | | | | | | LAB | | + + + + + + | AST | 10 (A) | 13 - 39 U/L | EXTERNAL | | | | | | LAB | | + + + + + + | Na | 137 | 132 - 143 | EXTERNAL | | | | | mmol/L | LAB | | + + + + + + | K | 3.6 | 3.6 - 5.1 | EXTERNAL | | | | | mmol/L | LAB | | + + + + + + | Cl | 103 | 95 - 112 mmol/L | EXTERNAL | | | | | | LAB | | + + + + + + | CO2 | 21 | 19 - 31 mmol/L | EXTERNAL | | | | | | LAB | | + + + + + + | Anion Gap | 16.6 | 7 - 21 mmol/L | EXTERNAL | | | | | | LAB | | + + + + + + | Estimated | 36 (A) | 60 - 140 [...]
--- OUTSIDE RECORDS SUMMARY | ~2019-10-13 | XMS | Encounter Summary ---
Demographics + + + | Address | [address] | | | [place] [address] | + + + | Home Phone | | + + + | Preferred Language | Unknown | + + + | Marital Status | | + + + | Mormonism Affiliation | 1041 | + + + | Race | Unknown | + + + | Ethnic Group | Unknown | + + + Author + + + | Author | [facility] | | | and [place] | + + + | Organization | [facility] | | | [...] Providers + +------+ + | Care Food Preparation Kitchen Aide Name | Role | Phone | + +------+ + | Kushal Costa MD | PCP | | + +------+ + Encounter Details +--------+ + + + + | Date | Type | Department | Care Team | Description | +--------+ + + + + | 02/11/ | Orders Only | [facility] | Danny Gandara MD | | | 2018 | | NEPHROLOGY [place] | [address] [place] | | | | | [address] [place] | [address] [place], [place] | | | | | [address] [place], [place] | [address] | | | | | [address] | | | | | | [phone] | | | +--------+ + + + [...] 2020 | Visit | | [address] [facility] | | | | | | 160 [place] | | | | | | [address] | | | | | | | [...] | | | LAB | | | [facility] | | | | | + + [...]
--- OUTSIDE RECORDS SUMMARY | ~2019-10-13 | XMS | Encounter Summary ---
Demographics + + + | Address | [address] | | | [place] [address] | + + + | Home Phone | | + + + | Preferred Language | Unknown | + + + | Marital Status | | + + + | Taoism Affiliation | 1041 | + + + | Race | Unknown | + + + | Ethnic Group | Unknown | + + + Author + + + | Author | [facility] | | | and [place] | + + + | Organization | [facility] | | | and [...] Team Providers + +------+ + | Care Primer Charger Name | Role | Phone | + +------+ + | Kushal Costa MD | PCP | | + +------+ + Encounter Details +--------+ + + + + | Date | Type | Department | Care Team | Description | +--------+ + + + + | 04/17/ | Orders Only | [facility] | Danny Gandara MD | | | 2018 | | NEPHROLOGY [place] | [address] [place] | | | | | [address] [place] | [address] [place], [place] | | | | | [address] [place], [place] | [address] | | | | | [address] | | | | | | [phone] | | | +--------+ + + + [...] 2020 | Visit | | [address] [facility] | | | | | | 160 [place] | | | | | | [address] | | | | | | | [...] | EXTERNAL LAB: CBC | Routin | 04/17/2019 | | Results for this | | | e | 10:20 AM | | procedure are in the | | | | PDT | | results section. | + +--------+ + + + | URIC ACID | Routin | 04/17/2019 | | Results for this | | | e | 10:20 AM | | procedure are in the | | | | PDT | | results section. | + +--------+ + + + | PARATHYROID HORMONE, | Routin | 04/17/2019 | | Results for this | | INTACT | e | 10:20 AM | | procedure are in the | | | | PDT | | results section. | + +--------+ + + + | MAGNESIUM | Routin | 04/17/2019 | | Results for this | | | e | 10:20 AM | | procedure are in the | | | | PDT | | results section. | + +--------+ + + + | RENAL FUNCTION PANEL | Routin | 04/17/2019 | | Results for this | | | e | 10:20 AM | | procedure are in the | | | | PDT | | results section. | + +--------+ + + + documented in this encounter Results External Lab: CBC (04/17/2019 10:20 AM PDT) + + + + + + | Component | Value | Ref Range | Performed | Pathologist | | | | | At | Signature | + + + + + + | WBC | 9.2 | 4.5 - 11.0 10 | EXTERNAL | | | | | | LAB | | + + + + + + | RED CELL | 3.51 (A) | 4.3 - 5.7 10 | EXTERNAL | | | COUNT | | | LAB | | + + + + + + | Hgb | 10.7 (A) | 13.5 - 18.0 | EXTERNAL | | | | | g/dL | LAB | | + + + + + + | Hematocrit, | 32.9 (A) | 41 - 50 % | EXTERNAL | | | POC | | | LAB | | + + + + + + | MCV | 93.8 | 81 - 99 fL | EXTERNAL [...] + + + + | Platelet | 214 | 140 - 440 K/ L | EXTERNAL | | | Count | | | LAB | | | Plasma | | | | | + + + + + + | RDW-CV | 16.4 (A) | 10.5 - 15.0 % | [...] + + + | % Segmented | 70.2 | 39 - 80 % | EXTERNAL | | | | | | LAB | | | Neutrophils | | | | | + + + + + + | % | 6.7 (A) | 24 - 44 % | EXTERNAL | | | Lymphocytes | | | LAB | | + + + + + + | % Monocytes | 5.9 | 0 - 12 % | EXTERNAL | | | | | | LAB | | + + + + + + | % | 16.3 (A) | 0 - 6 % | EXTERNAL | | | Eosinophils | | | LAB | | + + + + + + | % Basophils | 0.9 | 0 - 2 % | EXTERNAL [...] | | | + +---------+ + + Uric Acid (04/17/2019 10:20 AM PDT) + +---------+ + + + | Component | Value | Ref Range | Performed | Pathologist | | | | | At | Signature | + +---------+ + + + | Uric Acid | 8.2 (A) | 4.4 - 7.6 | EXTERNAL [...] | | | + +---------+ + + Parathyroid Hormone, Intact (04/17/2019 10:20 AM PDT) + + + + + + | Component | Value | Ref Range | Performed | Pathologist | | | | | At | Signature | + + + + + + | PTH INTACT | 161.2 (A) | 15 - 65 pg/mL | EXTERNAL | | | | [...] | | + +---------+ + + Magnesium (04/17/2019 10:20 AM PDT) + +-------+ + + + | [...] + +---------+ + + Renal Function Panel (04/17/2019 10:20 AM PDT) + + + + + + | Component | Value | Ref Range | Performed | Pathologist | | | | | At | Signature | + + + + + + | Glucose, | 98 | 70 - 100 mg/dL | EXTERNAL | | | Fasting | | | LAB | | + + + + + + | BUN | 47 (A) | 6 - 23 mg/dL | EXTERNAL | | | | | | LAB | | + + + + + + | Creatinine | 2.20 (A) | 0.70 - 1.18 | EXTERNAL | | | | | mg/dL | LAB | | + + + + + + | PHOSPHORUS | 3.2 | 2.5 - 5.0 mg/dL | EXTERNAL | | | | | | LAB | | + + + + + + | Albumin | 3.7 | 3.5 - 5.0 | EXTERNAL | | | | | | LAB | | + + + + + + | Na | 139 | 132 - 143 | EXTERNAL | [...] + + + + | CO2 | 29 | 19 - 31 mmol/L | EXTERNAL | | | | | | LAB | | + + + + + + | Anion Gap | 14.5 | 7 - 21 mmol/L | EXTERNAL | | | | | | LAB | | + + + + + + | eGFR if not | | | EXTERNAL | | | | | | LAB | | | PARAGUAYAN | | | | | + + + + + + | Phosphorus, | | | EXTERNAL | | | Inorganic | | | LAB | | + + + + + + | BUN/Creatin | 21.4 | 6.0 - 28.6 | EXTERNAL | | | ine Ratio | | | LAB | | + + + + + + | Calcium | 9.1 | 8.5 - 10.3 | EXTERNAL | | | | | mg/dL | LAB | | + + + + + + | Estimated | 29 (A) | 60 - 140 mg/dL | [...]
--- OUTSIDE RECORDS SUMMARY | ~2019-10-13 | XMS | Encounter Summary ---
Demographics + + + | Address | [address] | | | [place] [address] | + + + | Home Phone | | + + + | Preferred Language | Unknown | + + + | Marital Status | | + + + | Evangelical Affiliation | 1041 | + + + [...] Team Providers + +------+ + | Care Geographic Information Systems Engineer Name | Role | Phone | + +------+ + | Kushal Costa MD | PCP | | + +------+ + Encounter Details +--------+ + + + + | Date | Type | Department | Care Team | Description | +--------+ + + + + | 03/18/ | Orders Only | [facility] | Danny Gandara MD | | | 2017 | | NEPHROLOGY [place] | [address] [place] | | | | | [address] [place] | [address] [place], [place] | | | | | [address] [place], [place] | [address] | | | | | [address] | | | | | | [phone] | | | +--------+ + + + [...] 2019 | Visit | | [address] [facility] | | | | | | [facility] | | | | | | [address] | | | | | | | [...] | EXTERNAL LAB: CBC | Routin | 03/18/2018 | | Results for this | | | e | 12:31 PM | | procedure are in the | | | | PDT | | results section. | + +--------+ + + + | URINALYSIS WITH | Routin | 03/18/2018 | | Results for this | | MICROSCOPIC IF | e | 12:31 PM | | procedure are in the | | INDICATED | | PDT | | results section. | + +--------+ + + + | URIC ACID | Routin | 03/18/2018 | | Results for this | | | e | 12:31 PM | | procedure are in the | | | | PDT | | results section. | + +--------+ + + + | PARATHYROID HORMONE, | Routin | 03/18/2018 | | Results for this | | INTACT | e | 12:31 PM | | procedure are in the | | | | PDT | | results section. | + +--------+ + + + | RENAL FUNCTION PANEL | Routin | 03/18/2018 | | Results for this | | | e | 12:31 PM | | procedure are in the | | | | PDT | | results section. | + +--------+ + + + documented in this encounter Results Urinalysis with Microscopic if Indicated (03/18/2018 12:31 PM PDT) + + + + + [...] + + + | Spec Grav, | 1.013 | 1.005 - 1.030 | EXTERNAL | [...] + +---------+ + + External Lab: CBC (03/18/2018 12:31 PM PDT) + + + + + + | Component | Value | Ref Range | Performed | Pathologist | | | | | At | Signature | + + + + + + | WBC | 8.5 | 4.5 - 11.0 10 | EXTERNAL | | | | | | LAB | | + + + + + + | RED CELL | 3.93 (A) | 4.3 - 5.7 10 | EXTERNAL | | | COUNT | | | LAB | | + + + + + + | Hgb | 12.2 (A) | 13.5 - 18.0 | EXTERNAL | | | | | g/dL | LAB | | + + + + + + | Hematocrit, | 37.5 (A) | 41 - 50 % | EXTERNAL | | | POC | | | LAB | | + + + + + + | MCV | 95.5 | 81 - 99 fL | EXTERNAL | | | | | | LAB | | + + + + + + | MCH | 31 | 27 - 33 pg | EXTERNAL | | | | | | LAB | | + + + + + + | MCHC | 33 | 30 - 36 g/dL | EXTERNAL | | | | | | LAB | | + + + + + + | Platelet | 211 | 140 - 440 K/ L | EXTERNAL | | | Count | | | LAB | | | Plasma | | | | | + + + + + + | RDW-CV | 16.6 (A) | 10.5 - 15.0 % | [...] | + +---------+ + + Uric Acid (03/18/2018 12:31 PM PDT) + +---------+ + + + | Component | Value | Ref Range | Performed | Pathologist | | | | | At | Signature | + +---------+ + + + | Uric Acid | 9.2 (A) | 4.4 - 7.6 | EXTERNAL [...] + +---------+ + + Parathyroid Hormone, Intact (03/18/2018 12:31 PM PDT) + + + + + + | Component | Value | Ref Range | Performed | Pathologist | | | | | At | Signature | + + + + + + | PTH INTACT | 149.6 (A) | 15 - 65 pg/mL | [...] + +---------+ + + Renal Function Panel (03/18/2018 12:31 PM PDT) + + + + + + | Component | Value | Ref Range | Performed | Pathologist | | | | | At | Signature | + + + + + + | Glucose, | 87 | 70 - 100 mg/dL | EXTERNAL | | | Fasting | | | LAB | | + + + + + + | BUN | 67 (A) | 6 - 23 mg/dL | EXTERNAL | | | | | | LAB | | + + + + + + | Creatinine | 2.09 (A) | 0.7 - 1.18 | EXTERNAL | | | | | mg/dL | LAB | | + + + + + + | PHOSPHORUS | 4.4 | 2.5 - 5.0 mg/dL | EXTERNAL | | | | | | LAB | | + + + + + + | Albumin | 3.8 | 3.5 - 5.0 | EXTERNAL | | | | | | LAB | | + + + + + + | Na | 138 | 132 - 143 | EXTERNAL | | | | | mmol/L | LAB | | + + + + + + | K | 3.9 | 3.6 - 5.1 | EXTERNAL | | | | | mmol/L | LAB | | + + + + + + | Cl | 99 | 95 - 112 mmol/L | EXTERNAL | | | | | | LAB | | + + + + + + | CO2 | 27 | 19 - 31 mmol/L | EXTERNAL | | | | | | LAB | | + + + + + + | Anion Gap | 15.9 | 7 - 21 mmol/L | EXTERNAL | | | | | | LAB | | + + + + + + | eGFR if not | | | EXTERNAL | | | | | | LAB | | | MALIAN | | | | | + + + + + + | Phosphorus, | | | EXTERNAL | | | Inorganic | | | LAB | | + + + + + + | BUN/Creatin | 32.1 (A) | 6.0 - 28.6 | EXTERNAL | | | ine Ratio | | | LAB | | + + + + + + | Calcium | 9.4 | 8.4 - 10.2 | EXTERNAL | | | | | mg/dL | LAB | | + + + + + + | Estimated | 31 (A) | 60 mg/dL | EXTERNAL | [...]
--- OUTSIDE RECORDS SUMMARY | ~2019-10-13 | XMS | Encounter Summary ---
Demographics + + + | Address | [address] | | | [place] [address] | + + + | Home Phone | | + + + | Preferred Language | Unknown | + + + | Marital Status | | + + + | Protestant Affiliation | 1041 | + + + | Race | Unknown | + + + | Ethnic Group | Unknown | + + + Author + + + | Author | [facility] | | | and [place] | + + + | Organization | [facility] | | | [...] Team Providers + +------+ + | Care Collar Band Creaser Name | Role | Phone | + +------+ + | Kushal Costa MD | PCP | | + +------+ + Encounter Details +--------+ + + + + | Date | Type | Department | Care Team | Description | +--------+ + + + + | 06/29/ | Orders Only | [facility] | Danny Gandara MD | | | 2017 | | NEPHROLOGY [place] | [address] [place] | | | | | [address] [place] | [address] [place], [place] | | | | | 160 [place], [place] | [address] | | | | | [address] | | | | | | [phone] | | | +--------+ + + + [...] 2020 | Visit | | [address] [facility] | | | | | | 160 [place] | | | | | | [address] | | | | | | | [...] | EXTERNAL LAB: CBC | Routin | 06/29/2018 | | Results for this | | | e | 11:05 AM | | procedure are in the | | | | PDT | | results section. | + +--------+ + + + | VITAMIN D, | Routin | 06/29/2018 | | Results for this | | DEFICIENCY SCREEN | e | 11:05 AM | | procedure are in the | | (25-HYDROXY) | | PDT | | results section. | + +--------+ + + + | URIC ACID | Routin | 06/29/2018 | | Results for this | | | e | 11:05 AM | | procedure are in the | | | | PDT | | results section. | + +--------+ + + + | PARATHYROID HORMONE, | Routin | 06/29/2018 | | Results for this | | INTACT | e | 11:05 AM | | procedure are in the | | | | PDT | | results section. | + +--------+ + + + | RENAL FUNCTION PANEL | Routin | 06/29/2018 | | Results for this | | | e | 11:05 AM | | procedure are in the | | | | PDT | | results section. | + +--------+ + + + documented in this encounter Results Vitamin D, Deficiency Screen (25-Hydroxy) (06/29/2018 11:05 AM PDT) + +-------+ + + + | Component | Value | Ref Range | Performed | Pathologist | | | | | At | Signature | + +-------+ + + + | Vit D, | 41 | 30 - 100 | EXTERNAL | | | 25-Hydroxy | | | LAB | | + [...] + +---------+ + + External Lab: CBC (06/29/2018 11:05 AM PDT) + + + + + [...] + + + | RED CELL | 3.43 (A) | 4.3 - 5.7 10 | EXTERNAL | | | COUNT | | | LAB | | + + + + + + | Hgb | 10.7 (A) | 13.5 - 18.0 | EXTERNAL | | | | | g/dL | LAB | | + + + + + + | Hematocrit, | 33.5 (A) | 41 - 50 % | EXTERNAL | | | POC | | | LAB | | + + + + + + | MCV | 97.6 | 81 - 99 fL | EXTERNAL [...] + + | Platelet | 201 | 140 - 440 K/ L | EXTERNAL | | | Count | | | LAB | | | Plasma | | | | | + + + + + + | RDW-CV | 17.8 (A) | 10.5 - 15.0 % | [...] | + +---------+ + + Uric Acid (06/29/2018 11:05 AM PDT) + +-------+ + + + | Component | Value | Ref Range | Performed | Pathologist | | | | | At | Signature | + +-------+ + + + | Uric Acid | 6.0 | 4.4 - 7.6 | EXTERNAL | [...] + +---------+ + + Parathyroid Hormone, Intact (06/29/2018 11:05 AM PDT) + + + + + + | Component | Value | Ref Range | Performed | Pathologist | | | | | At | Signature | + + + + + + | PTH INTACT | 124.0 (A) | 15 - 65 pg/mL | [...] + +---------+ + + Renal Function Panel (06/29/2018 11:05 AM PDT) + + + + + + | Component | Value | Ref Range | Performed | Pathologist | | | | | At | Signature | + + + + + + | Glucose, | 39 (A) | 6 - 23 mg/dL | EXTERNAL | | | Fasting | | | LAB | | + + + + + + | BUN | 39 (A) | 6 - 23 mg/dL | EXTERNAL | | | | | | LAB | | + + + + + + | Creatinine | 1.83 (A) | 0.7 - 1.18 | EXTERNAL | | | | | mg/dL | LAB | | + + + + + + | PHOSPHORUS | 3.5 | 2.5 - 5.0 mg/dL | EXTERNAL | | | | | | LAB | | + + + + + + | Albumin | 3.5 | 3.5 - 5.0 | EXTERNAL | | | | | | LAB | | + + + + + + | Na | 141 | 132 - 143 | EXTERNAL | | | | | mmol/L | LAB | | + + + + + + | K | 4.0 | 3.6 - 5.1 | EXTERNAL | | | | | mmol/L | LAB | | + + + + + + | Cl | 106 | 95 - 112 mmol/L | EXTERNAL | | | | | | LAB | | + + + + + + | CO2 | 22 | 19 - 31 mmol/L | EXTERNAL | | | | | | LAB | | + + + + + + | Anion Gap | 17 | 7 - 21 mmol/L | EXTERNAL | | | | | | LAB | | + + + + + + | eGFR if not | | | EXTERNAL | | | | | | LAB | | | [place] | | | | | + + + + + + | Phosphorus, | | | EXTERNAL | | | Inorganic | | | LAB | | + + + + + + | BUN/Creatin | 21.3 | 6.0 - 28.6 | EXTERNAL | | | ine Ratio | | | LAB | | + + + + + + | Calcium | 9.1 | 8.5 - 10.3 | EXTERNAL | | | | | mg/dL | LAB | | + + + + + + | Estimated | 36 (A) | 60 mg/dL | EXTERNAL | [...]
--- OUTSIDE RECORDS SUMMARY | ~2019-10-13 | XMS | Encounter Summary ---
Demographics + + + | Address | [address] | | | [place] [address] | + + + | Home Phone | | + + + | Preferred Language | Unknown | + + + | Marital Status | | + + + | Sikhism Affiliation | 1041 | + + + | Race | Unknown | + + + | Ethnic Group | Unknown | + + + Author + + + | Author | [facility] | | | and [place] | + + + | Organization | [facility] | | | [...] Team Providers + +------+ + | Care Marketing Pr Intern Name | Role | Phone | + [...] | | | | [place], | [place] | | | | | | [place] [address] | [address] Phone: | | | | | | Phone: | [phone] | | | | | | [phone] | Fax: | | | | | | Fax: | [phone] | | | | | | [phone] | | +--------+--------+ + + + + Encounter Details +--------+---------+ + + + | Date | Type | Department | Care Team | Description | +--------+---------+ + + + | 06/11/ | Office | [facility] | Anastasia, | Low back pain, | | 2017 | Visit | PHYSIATRY [address] | KOKI Vasquez [address] | unspecified back | | | | [place], | AAYUSH RICARDO, | pain laterality, | | | | [place] [address] | [place] [address] | unspecified | | | | [phone] | [phone] | chronicity, with | | | | [...] of blood sugars if you are diabetic. 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 For all procedur es it is recommended that someone else drive you home. documented in this encounter Progress Notes Christina Oconnor PA-C - 06/11/2018 8:40 AM PDTFormatting of this note might be differe nt from the original. Christina Oconnor PA-C [address] [place] [address] FAX: PHYSICAL MEDICINE AND REHABILITATION H&P CHIEF [...] has no apparent deficits with short or shelter memory. 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 ASSESSMENT: 1. Low back pain, [...] any procedure. He does report seeing his jewel staker on June 30 in which they w [...] 2019 | Visit | | [address] [facility] | | | | | | [address] [place], [place] | | | | | | [id number] | | | | | | | [...]
--- OUTSIDE RECORDS SUMMARY | ~2019-10-13 | XMS | Encounter Summary ---
Demographics + + + | Address | [address] | | | [place] [address] | + + + | Home Phone | | + + + | Preferred Language | Unknown | + + + | Marital Status | | + + + | Anglican Affiliation | 1041 | + + + | Race | Unknown | + + + | Ethnic Group | Unknown | + + + Author + + + | Author | [facility] | | | and [place] | + + + | Organization | [facility] | | | [...] Team Providers + +------+ + | Care Financial Officer Name | Role | Phone | + +------+ + | Kushal Costa MD | PCP | | + +------+ + Encounter Details +--------+ + + + + | Date | Type | Department | Care Team | Description | +--------+ + + + + | 10/21/ | Orders Only | [facility] | Conversion | | | 2018 | | NEPHROLOGY [place] | Transaction, | | | | | [address] | Provider Unknown | | | | | [address] [facility] [place] | | | | | | [address] | (Fax) | | | | | [phone] | | | +--------+ + + + [...] 2019 | Visit | | [address] [facility] | | | | | | [address] [facility] | | | | | | [address] | | | | | | | [...]
--- OUTSIDE RECORDS SUMMARY | ~2019-10-13 | XMS | Encounter Summary ---
Demographics + + + | Address | [address] | | | [place] [address] | + + + | Home Phone | | + + + | Preferred Language | Unknown | + + + | Marital Status | | + + + | Mandaeism Affiliation | 1041 | + + + | Race | Unknown | + + + | Ethnic Group | Unknown | + + + Author + + + | Author | [facility] | | | and [place] | + + + | Organization | [facility] | | [...] Team Providers + +------+ + | Care Jewel Oliving Machine Operator Name | Role | Phone [...] | EXCHANGE | | | | | [place], [place] | [place] [address] | | | | | [address] | [phone] | | | | | [phone] | | | +--------+ + + + [...] | | | | | | [address] [facility] | | | | | | [address] | | | | | | | [...] LVH, diastolic function abnormal, | | | [place] visually estimates LVEF 50-55%. 3. Aortic valve [...] | Mild concentric LVH, diastolic function abnormal, [place] visually | | | estimates LVEF 50-55%. [...] pressures of | | | 15-20mmHg. MEASUREMENTS Tool Carrier: | | | Authenticated by: Derrek Barnhart DO Report Date/Time: -- | | | [id number] | | + + + + + [...] enlargement. Mild concentric LVH, diastolic function abnormal, [place] | | visually estimates LVEF 50-55%. 3. [...] | central venous pressures of 15-20mmHg. MEASUREMENTS Tool Carrier: | | DHAuthenticated by: Derrek Dockery Date/Time: -- [id number]:08 | | IMPRESSION: 1. See Dictation. A fib, paced rhythm. 2. Cor Pulmonale. Severe RV | | enlargement, systolic function preserved, septal flattening suggestive of chronic RV | | volume and pressure overload. Pacing catheter in RV. Moderate TR. IVC dilated and | | plethoric. Est systolic PAP 67-72mmHg, severe Pulmonary HTN. Severe bi-Atrial | | enlargement. Mild concentric LVH, diastolic function abnormal, [place] visually | | estimates LVEF 50-55%. 3. [...] | |MEASUREMENTS | | | | | |Tool Carrier: | |Authenticated by: Derrek Barnhart DO | |Report Date/Time: -- [id number] | | | |IMPRESSION: | |1. See Dictation. A fib, paced rhythm. 2. Cor Pulmonale. Severe RV enlargement, systolic function preserved, septal flattening suggestive of chronic RV volume and pressure overload. Pacing catheter in RV. Moderate | |TR. IVC dilated and plethoric. Est | | systolic PAP 67-72mmHg, severe Pulmonary HTN. Severe bi-Atrial enlargement. Mild concent romelia LVH, diastolic function abnormal, [place] visually estimates LVEF 50-55%. 3. Aortic valve [...]
--- OUTSIDE RECORDS SUMMARY | ~2019-10-13 | XMS | Encounter Summary ---
Demographics + + + | Address | [address] | | | [place] [address] | + + + | Home Phone | | + + + | Preferred Language | Unknown | + + + | Marital Status | | + + + | Anglican Affiliation | 1041 | + + + | Race | Unknown | + + + | Ethnic Group | Unknown | + + + Author + + + | Author | [facility] | | | and [place] | + + + | Organization | [facility] | | [...] Team Providers + +------+ + | Care Telephone Recorder Name | Role | Phone | + [...] Provider Unknown | | | | | [place], [place] | [phone] | | | | | [address] | (Fax) | | | | | [phone] | | | +--------+ + + + [...] 2019 | Visit | | [address] [facility] | | | | | | [address] [place] | | | | | | [address] | | | | | | | [...]
--- OUTSIDE RECORDS SUMMARY | ~2019-10-13 | XMS | Clinical Summary ---
Demographics + + + | Address | [address] | | | [place] [address] | + + + | Home Phone | | + + + | Preferred Language | Unknown | + + + | Marital Status | Single | + + + | Hinduism Affiliation | Unknown | + + + [...] Team Providers + +------+ + | Care Human Resources Benefits Manager Name | Role | Phone | + +------+ + PCP | Unavailable | + +------+ + Source Comments [facility] is fully live on both [facility] Allergies Not on File Medications Not [...]
--- OUTSIDE RECORDS SUMMARY | ~2019-10-13 | XMS | Encounter Summary ---
Demographics + + + | Address | [address] | | | [place] [address] | + + + | Home Phone | | + + + | Preferred Language | Unknown | + + + | Marital Status | | + + + | Pentecostal Affiliation | 1041 | + + + [...] Team Providers + +------+ + | Care Maritime Officer Name | Role | Phone | + +------+ + | Kushal Costa MD | PCP | | + +------+ + Encounter Details +--------+ + + + + | Date | Type | Department | Care Team | Description | +--------+ + + + + | 10/24/ | Orders Only | [facility] | Conversion | | | 2019 | | NEPHROLOGY [place] | Transaction, | | | | | [address] | Provider Unknown | | | | | [address] [facility] [place] | | | | | | [address] | (Fax) | | | | | [phone] | | | +--------+ + + + [...] 2019 | Visit | | [address] [facility] | | | | | | [address] [place] | | | | | | [address] | | | | | | | [...] - 1.030 | EXTERNAL | | | [place] | | | LAB | | + [...]
--- OUTSIDE RECORDS SUMMARY | ~2019-10-13 | XMS | Encounter Summary ---
Demographics + + + | Address | [address] | | | [place] [address] | + + + | Home Phone | | + + + | Preferred Language | Unknown | + + + | Marital Status | | + + + | Zoroastrianism Affiliation | 1041 | + + + | Race | Unknown | + + + | Ethnic Group | Unknown | + + + Author + + + | Author | [facility] | | | and [place] | + + + | Organization | [facility] | | | [...] Team Providers + +------+ + | Care Health Practice Manager Name | Role | Phone | + +------+ + | Kushal Costa MD | PCP | | + +------+ + Encounter Details +--------+ + + + + | Date | Type | Department | Care Team | Description | +--------+ + + + + | 10/23/ | Orders Only | [facility] | Danny Gandara MD | | | 2018 | | NEPHROLOGY [place] | [address] [place] | | | | | [address] [place] | [address] [place], [place] | | | | | [address] [place], [place] | [address] | | | | | [address] | | | | | | [phone] | | | +--------+ + + + [...] Visit | | [address] [facility] | | | | | | 160 [place] | | | | | | [address] | | | | | | | [...] | EXTERNAL LAB: CBC | Routin | 10/23/2018 | | Results for this | | | e | 9:05 AM | | procedure are in the | | | | PST | | results section. | + +--------+ + + + | PARATHYROID HORMONE, | Routin | 10/23/2018 | | Results for this | | INTACT | e | 9:05 AM | | procedure are in the | | | | PST | | results section. | + +--------+ + + + | RENAL FUNCTION PANEL | Routin | 10/23/2018 | | Results for this | | | e | 9:05 AM | | procedure are in the | | | | PST | | results section. | + +--------+ + + + documented in this encounter Results External Lab: CBC (10/23/2018 9:05 AM PST) + + + + + [...] + + + | RED CELL | 3.69 (A) | 4.3 - 5.7 10 | EXTERNAL | | | COUNT | | | LAB | | + + + + + + | Hgb | 11.1 (A) | 13.5 - 18.0 | EXTERNAL | | | | | g/dL | LAB | | + + + + + + | Hematocrit, | 11.1 (A) | 13.5 - 18.0 % | EXTERNAL | | | POC | | | LAB | | + + + + + + | MCV | 94.6 | 81 - 99 fL | EXTERNAL [...] + + | Platelet | 197 | 140 - 440 K/ L | EXTERNAL | | | Count | | | LAB | | | Plasma | | | | | + + + + + + | RDW-CV | | % | EXTERNAL | | [...] + +---------+ + + Parathyroid Hormone, Intact (10/23/2018 9:05 AM PST) + + + + + + | Component | Value | Ref Range | Performed | Pathologist | | | | | At | Signature | + + + + + + | PTH INTACT | 128.9 (A) | 15 - 65 pg/mL | [...] + +---------+ + + Renal Function Panel (10/23/2018 9:05 AM PST) + + + + + + | Component | Value | Ref Range | Performed | Pathologist | | | | | At | Signature | + + + + + + | Glucose, | 89 | 70 - 100 mg/dL | EXTERNAL | | | Fasting | | | LAB | | + + + + + + | BUN | 96 (A) | 6 - 23 mg/dL | EXTERNAL | | | | | | LAB | | + + + + + + | Creatinine | 2.84 (A) | 0.70 - 1.18 | EXTERNAL | | | | | mg/dL | LAB | | + + + + + + | PHOSPHORUS | 4.5 | 2.5 - 5.0 mg/dL | EXTERNAL | | | | | | LAB | | + + + + + + | Albumin | 3.7 | 3.5 - 5.0 | EXTERNAL | | | | | | LAB | | + + + + + + | Na | 136 | 132 - 143 | EXTERNAL | | | | | mmol/L | LAB | | + + + + + + | K | 3.2 (A) | 3.6 - 5.1 | EXTERNAL [...] + + + | Anion Gap | 21.2 (A) | 7 - 21 mmol/L | EXTERNAL | | | | | | LAB | | + + + + + + | eGFR if not | | | EXTERNAL | | | | | | LAB | | | GEORGIAN | | | | | + + + + + + | Phosphorus, | | | EXTERNAL | | | Inorganic | | | LAB | | + + + + + + | BUN/Creatin | 33.8 (A) | 6.0 - 28.6 | EXTERNAL | | | ine Ratio | | | LAB | | + + + + + + | Calcium | 9.4 | 8.5 - 10.3 | EXTERNAL | | | | | mg/dL | LAB | | + + + + + + | Estimated | 22 (A) | 60 - 140 mg/dL | [...]
--- OUTSIDE RECORDS SUMMARY | ~2019-10-13 | XMS | Encounter Summary ---
Demographics + + + | Address | [address] | | | [place] [address] | + + + | Home Phone [...] Author + + + | Author | [facility] | + + + | Organization | [facility] | + + + | Address | Unknown | + + + | Phone | Unavailable | + + + Support + + +---------+ + | Name | Relationship | Address | Phone | + + +---------+ + | None None | ECON | Unknown | Unavailable | + + +---------+ + Care Team Providers + +------+ + | Care Pe Manager Name | Role | Phone | + +------+ + PCP | Unavailable | + +------+ + Encounter Details +--------+ + + + + | Date | Type | Department | Care Team | Description | +--------+ + + + + | 01/13/ | Documentati | Neurology at | Sy Goodwin, | | | 2007 | on | [facility] & | MD Angeles Fox | | | | | [address] | [place], [place] | | | | | Rj Fox Mailcode: | [address] | | | | | [facility] | [phone] | | | | | [facility] Healing, | | | | | | | | | | | | [place], [place] | | | | | | [address] | | | | | | [phone] | | | +--------+ + + + [...]
--- OUTSIDE RECORDS SUMMARY | ~2019-10-13 | XMS | Clinical Summary ---
Demographics + + + | Address | [address] | | | [place] [address] | + + + | Home Phone | | + + + | Preferred Language | Unknown | + + + | Marital Status | | + + + | Denominational Affiliation | 1041 | + + + | Race | Unknown | + + + | Ethnic Group | Unknown | + + + Author + + + | Author | [facility] | | | and [place] | + + + | Organization | [facility] | | | and [...] Team Providers + +------+ + | Care Shank Piece Tacker Name | Role | Phone | + [...] + + + | Overview: Problem List Bleaching Machine Operator Utility | + + + + [...] | | | | | 3 (moderate) ([facility]) | | | | | | (Primary Dx); CKD | | | | | | (chronic kidney | | | | | | disease), stage IV | | | | | | ([facility]); Electrolyte | | | | | | imbalance risk; | | | | | | Secondary | | | | | | hyperparathyroidism | | | | | | ([facility]); Vitamin D | | | [...] Cannon | | | | | | Photogrammetric Tech | | +--------+ + + + + [...] 2019 | Visit | | [address] [facility] | | | | | | [address] [place], [place] | | | | | | [address] | | | | | | | [...] +--------+ +---------+--------+ | MEDICARE | MEDICA | [id number] | 10/20/19 | [phone] | | Medica | | | RE | | 05-Pre | 5 | | re | | | PART A | | sent | | | | | | AND B | | | | | | + +--------+ +--------+ +---------+--------+ | MEDICARE | MEDICA | [id number] | 10/20/19 | [phone] | | Medica [...] [place] | | | 1 (Home) | [address] | + +--------+ +--------+ + + | Michael Joshi | Person | Self [birth year] | [address] | | | al/Fam | | 1941 | [phone] | [place] | | | [place] | | | 1 (Home) | [address] | + +--------+ +--------+ + + Advance Directives + + + + + | Type | Date Recorded | Patient | Explanation | | | | Polysomnographer | | + + + + + | Power of | | | | | Blue Prints Trimmer | | | | + + + + + | Advance | | | | | Directive | | | | + + + + +
--- OUTSIDE RECORDS SUMMARY | ~2019-10-13 | XMS | Encounter Summary ---
Demographics + + + | Address | [address] | | | [place] [address] | + + + | Home Phone | | + + + | Preferred Language | Unknown | + + + | Marital Status | | + + + | Yarsani Affiliation | 1041 | + + + | Race | Unknown | + + + | Ethnic Group | Unknown | + + + Author + + + | Author | [facility] | | | and [place] | + + + | Organization | [facility] | | [...] Team Providers + +------+ + | Care Boring Mill Set Up Operator Vertical Name | Role | Phone | + +------+ + PCP | Unavailable | + +------+ + Encounter Details +--------+ + + + + | Date | Type | Department | Care Team | Description | +--------+ + + + + | 06/06/ | Hospital | [facility] | Tj Luevano MD | | | 2006 - | Encounter | [facility] | [address] [facility] | | | | | [address] | [place] | | | 06/10/ | | [place] [address] | [address] | | | 2005 | | [phone] | [phone] | | | | | | | [...] Visit | | [address] [facility] | | | | | | [address] [place] | | | | | | [address] | | | | | | | [...]
--- OUTSIDE RECORDS SUMMARY | ~2019-10-13 | XMS | Encounter Summary ---
Demographics + + + | Address | [address] | | | [place] [address] | + + + | Home Phone | | + + + | Preferred Language | Unknown | + + + | Marital Status | | + + + | Mu-Ism Affiliation | 1041 | + + + [...] Team Providers + +------+ + | Care Stable Cleaner Name | Role | Phone | + +------+ + | Kushal Costa MD | PCP | | + +------+ + Encounter Details +--------+ + + + + | Date | Type | Department | Care Team | Description | +--------+ + + + + | 03/18/ | Hospital | [facility] | EuniceShar, | Syncope, unspecified | | 2019 - | Encounter | [facility] | [address] | syncope type; | | | | CARE FLOOR [address] | [place] [address] | Pacemaker failure, | | 03/20/ | | [address] | [phone] | initial encounter; | | 2018 | | [place], [place] | | Stage 3 chronic | | | | [address] | | kidney disease (HCC) | | | | [phone] | | | +--------+ + + + [...] Date of Service: 03/20/19 075 Status: Addendum Child Support Specialist: Lila Brady MD (Physician) Related Notes: Original Note by Lila Brady MD (Physician) filed at 03/20/19 0756 [facility] Service: Cardiology Discharge Summary Date of [...] is 78-year-old male who was transferred from [facility] to [facility] to pacemaker battery at end-of-life. Patient [...] will be scheduled for next Friday in [place] cardiology clinic. We will continue to follow-up [...] (none) Author Type: Registered Nurse Filed: 03/20/19 5897 Date of Service: 03/20/191153 Status: Signed Child Support Specialist: Kristine Mueller RN (Registered Nurse) Pt left [...] 03/19/191843 Date of Service: 03/19/191842 Status: Signed Child Support Specialist: Teresa Alan RN (Registered Nurse) Pt returned from pathology laboratory technologist from procedure vitals remain stable. No acute changes during shif t. End of shift chart check complete. Teresa Alan RN. onver sarah Transaction, Provider Unknown - 03/19/2019 4:04 PM PDT Progress Notes by Darren Resendiz RN at 03/19/19 160 Author: Darren Resendiz RN Service: Interventional Cardiology Author Type: Registered Nu rse Filed: 03/19/19 160 Date of Service: 03/19/19 160 Status: Signed Child Support Specialist: Darren Resendiz RN (Registered Nurse) Anesthesia will be monitoring and documenting vitals, hemodynamics, and medication administ ration onver sarah Transaction, Provider Unknown - 03/19/2019 3:52 PM PDT Progress Notes by Meri Carlton RD at 03/19/191551 Author: Meri Carlton RD Service: (none) Author Type: Registered Dietitian Filed: 03/19/191551 Date of Service: 03/19/191551 Status: Signed Child Support Specialist: Meri Carlton RD (Registered Dietitian) 03/19/19 0448 Subjective Timepoint Admit (PI) Diet Experience Self-selected [...] abrasions to right el bow and RLE. cash management coordinator is following. Anthropometrics Height (Ht listed at [...] Date of Service: 03/19/19 152 Status: Signed Child Support Specialist: Kye Saxena DO (Physician) [facility] Service: Hospitalist Progress Note Pt: Michael Joshi AGE/SEX: 78 y.o. male : 1940 ROOM: [facility]9/4459-1 TODAY'S DATE: 03/19/2019 Hospital Day: LOS: 1 [...] 0.10 K/uL Final Comment: Testing performed at [facility], [address] [place] [address] MORPHOLOGY Date Value Ref Range Status 03/18/2019 [...] 03/19/2019 8 5 - 20 mmol/L Final @[id number]@ HDL CHOL Date Value Ref Range Status [...] 5.100 uIU/mL Final Comment: Testing performed at [facility], [address] [place] [address] TOTAL PROTEIN Date Value Ref Range Status [...] Management by Radha Flor RN at 03/19/19 1784 Author: Radha Flor RN Service: (none) Author Type: Registered Nurse Filed: 03/19/19 4170 Date of Service: 03/19/19 1446 Status: Signed Child Support Specialist: Radha Flor RN (Registered Nurse) 03/19/19 1400 [...] Oriented Prior functional status independent Power of Jewel Bearing Turner No Anticipated Discharge Plan Post Acute Care [...] pacemaker replaced. Pt is a transfer from [facility]. Pt is from [place], [place]. Patient's PCP is: Kushal Costa Patient's insurance: Medicare Coverage concerns: none Medication coverage/concerns: none Rx Bedside Delivery: Community resources utilized / needed: Home O2 2L-PRN via In home medical. No anticoagulate s @ this time. Assistance in transportation: pov w/ Identification of any specific education / training: cardiac pacemaker Barriers to Discharge / Alternative housing needed: none Anticipated DCP: home cMkenzie Flor RN,BSN,CM Lila Hughes ra, MD - 03/19/2019 7:21 AM PDT Progress Notes by Lila Brady MD at 03/19/19720 Author: Lila Brady MD Service: Cardiology Author Type: Physician Filed: 03/19/1923 Date of Service: 03/19/19720 Status: Signed Child Support Specialist: Lila Brady MD (Physician) [facility] Service: Cardiology Progress Note Name of Manager Of Application Development: Lila Brady MD I have seen the patient on 03/19/2019, continues to be hemodynamically stable. Transferred from [facility]. Had syncopal episode yesterday while at a [...] tablet 1 tablet, 1 tablet, Oral, Q6H SD N, Shar Dawson MD metolazone tablet 5 [...] extremity US: Pacemaker 2007: Guidant 1190, SN [id number] Last time interrogated 02/04/2018 Ventricular paced 41%. [...] 03/19/19650 Date of Service: 03/19/19649 Status: Signed Child Support Specialist: Akil Castanon RN (Registered Nurse) Pt with uneventful night. Pt in rate-controlled a-fib overnight; VSS. Plan for pacemaker placement with Dr. Brady today. 24 hour chart review complete. onver sarah Transaction, Provider Unknown - 03/18/2019 6:26 PM PDT Pharmacy Note by Blanca Muller RPH at 03/18/191825 Author: Blanca Muller RPH Service: Pharmacy Author Type: Pharmacist Filed: 03/18/191825 Date of Service: 03/18/191825 Status: Signed Child Support Specialist: Blanca Muller RPH (Pharmacist) Clinical Pharmacy Note: [...] appropriate dosing per renal function. Blanca Muller [facility] 03/18/2019 6:26 PM Larry armstrong in this encounter Plan of Treatment +--------+ + + + + | Date | Type | Specialty | Care Team | Description | +--------+ + + + + | 11/29/ | Office | Nephrology | Danny Gandara MD | | | 2019 | Visit | | [address] [facility] | | | | | | [address] [place], [place] | | | | | | [address] | | | | | | | [...] | | | Basophils | performed at [facility], [address] | K/uL | LAB | | | | [address], | | | | | | [place] [address] | | | | + + + [...] | | | | | performed at [facility], [address] | | | | | | [address], | | | | | | [place] [address] | | | | + + + [...] 10 mL. IMPLANTED | | | PACEMAKER: [place] scientific accolade MRI SRIS#1, model L310, | | | serial #[id number]. 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 PROGRAM PARAMETERS: Pacemaker is programmed at | [...] mL. | | | | IMPLANTED PACEMAKER: [place] scientific accolade MRI SRIS#1, model L310, | | serial #[id number]. 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 | | | | PROGRAM PARAMETERS: Pacemaker [...] | | | | | performed at [facility] | | | | | | [address];[place], [place] | | | | | | [address] | | | | + + + [...] | | | Basophils | performed at [facility], [address] | K/uL | LAB | | | | [address], | | | | | | [place] [address] | | | | + + + [...] EXTERNAL | | | | performed at [facility], [address] | | LAB | | | | [address], | | | | | | [place] [address] | | | | + + + [...] EXTERNAL | | | | performed at [facility], [address] | | LAB | | | | [address], | | | | | | [place] [address] | | | | + + + [...] | | | | | performed at [facility], [address] | | | | | | [facility], | | | | | | [place] [address] | | | | + + + [...] | | | | | performed at [facility], [address] | | | | | | [facility], | | | | | | [place] [address] | | | | + + + [...] (500), | | | | | | writer editor Joel Mclean | | | | [...] EXTERNAL | | | | performed at [facility];[address] | | LAB | | | [address];[place], [place] | | | | | | [address] | | | | + + + [...] EXTERNAL | | | | performed at [facility];[address] | | LAB | | | | [address];[place] | | | | | | [address] | | | | + + + [...]
--- OUTSIDE RECORDS SUMMARY | ~2019-10-13 | XMS | Encounter Summary ---
Demographics + + + | Address | [address] | | | [place] [address] | + + + | Home Phone | | + + + | Preferred Language | Unknown | + + + | Marital Status | | + + + | Orthodox Affiliation | 1041 | + + + | Race | Unknown | + + + | Ethnic Group | Unknown | + + + Author + + + | Author | [facility] | | | and [place] | + + + | Organization | [facility] | | | [...] Team Providers + +------+ + | Care District Fire Management Officer Name | Role | Phone | [...] + + | 07/06/ | Procedure | [facility] | Sparkle Brady, | Pacemaker | | 2019 | visit | CARDIOLOGY [place] | [address] | | | | | [address] | [place], [place] | | | | | [facility] | [address] | | | | | [place] | | | | | | [address] | | | | | | [phone] | | | +--------+ + + + [...] 2019 | Visit | | [address] [facility] [place] | | | | | | [address] [place] | | | | | | [address] | | | | | | | [...] electrophysiology provider: None | | | Device client reporting associate: [employer] Device type: | | | Single [...]
--- OUTSIDE RECORDS SUMMARY | ~2019-10-13 | XMS | Encounter Summary ---
Demographics + + + | Address | [address] | | | [place] [address] | + + + | Home Phone | | + + + | Preferred Language | Unknown | + + + | Marital Status | | + + + | Zoroastrianism Affiliation | 1041 | + + + | Race | Unknown | + + + | Ethnic Group | Unknown | + + + Author + + + | Author | [facility] | | | and [place] | + + + | Organization | [facility] | | [...] Team Providers + +------+ + | Care Academic Advisement Director Name | Role | Phone | [...] | (Primary Dx) | | | | [address], | [place], [place] | | | | | [place] [address] | [address] | | | | | [phone] | | | +--------+ + + + [...] 2019 | Visit | | [address] [facility] [place] | | | | | | [address] [place] | | | | | | [address] | | | | | | (Fax) | | +--------+ + + + + | 01/09/ | Procedure | Cardiology | | | | 2019 | visit | | | | +--------+ + + + + | 04/10/ | Procedure | Cardiology | | | | 2019 | visit | | | | +--------+ + + + + + +---------+--------+ + + | Name | Type | Priori | Associated Diagnoses | Order Schedule | | | | ty | | | + +---------+--------+ + + | FL BENITEZ Lumbar | Imaging | Routin | Lumbar | Expected: | | Transforaminal | | e | radiculopathy | 10/21/2018, Expires: | | | | | | 10/21/2019 | + +---------+--------+ + + documented as of this encounter Visit Diagnoses + + | Diagnosis | + + | Lumbar radiculopathy - Primary Thoracic or lumbosacral neuritis or radiculitis, | | unspecified | + + documented in this encounter"
--- OUTSIDE RECORDS SUMMARY | ~2019-10-13 | XMS | Encounter Summary ---
Demographics + + + | Address | [address] | | | [place] [address] | + + + | Home Phone | | + + + | Preferred Language | Unknown | + + + | Marital Status | | + + + | Sabianism Affiliation | 1041 | + + + | Race | Unknown | + + + | Ethnic Group | Unknown | + + + Author + + + | Author | [facility] | | | and [place] | + + + | Organization | [facility] | | [...] Team Providers + +------+ + | Care Straddle Carrier Operator Name | Role | Phone | + +------+ + | Kushal Costa MD | PCP | | + +------+ + Encounter Details +--------+ + + + + | Date | Type | Department | Care Team | Description | +--------+ + + + + | 03/16/ | Orders Only | [facility] | Danny Gandara MD | | | 2018 | | NEPHROLOGY [place] | [address] [place] | | | | | [address] [place] | [address] [place], [place] | | | | | [address] [place], [place] | [address] | | | | | [address] | | | | | | [phone] | | | +--------+ + + + [...] 2020 | Visit | | [address] [facility] | | | | | | [address] [place] | | | | | | [address] | | | | | | | [...]
--- OUTSIDE RECORDS SUMMARY | ~2019-10-13 | XMS | Encounter Summary ---
Demographics + + + | Address | [address] | | | [place] [address] | + + + | Home Phone | | + + + | Preferred Language | Unknown | + + + | Marital Status | | + + + | Oriental Orthodox Affiliation | 1041 | + + + | Race | Unknown | + + + | Ethnic Group | Unknown | + + + Author + + + | Author | [facility] | | | and [place] | + + + | Organization | [facility] | | | [...] Team Providers + +------+ + | Care Wash Tub Machine Operator Name | Role | Phone [...] [place] | | | | | [phone] | [place] [address] | | +--------+ + + + + [...] 2019 | Visit | | [address] [facility] [place] | | | | | | [address] [place], [place] | | | | | | [address] | | | | | | | [...]
--- OUTSIDE RECORDS SUMMARY | ~2019-10-13 | XMS | Encounter Summary ---
Demographics + + + | Address | [address] | | | [place] [address] | + + + | Home Phone | | + + + | Preferred Language | Unknown | + + + | Marital Status | | + + + | Yarsanism Affiliation | 1041 | + + + | Race | Unknown | + + + | Ethnic Group | Unknown | + + + Author + + + | Author | [facility] | | | and [place] | + + + | Organization | [facility] | | | and [...] Team Providers + +------+ + | Care Army Senior Officer Name | Role | Phone | + +------+ + | Kushal Costa MD | PCP | | + +------+ + Encounter Details +--------+ + + + + | Date | Type | Department | Care Team | Description | +--------+ + + + + | 09/23/ | Orders Only | [facility] | Conversion | | | 2018 | | NEPHROLOGY [place] | Transaction, | | | | | [address] [place] | Provider Unknown | | | | | [address] [facility] [place] | | | | | | [address] | (Fax) | | | | | [phone] | | | +--------+ + + + [...] 2019 | Visit | | [address] [facility] | | | | | | [address] [place] | | | | | | [address] | | | | | | | [...] + +--------+ + + + | CBC NO DIFFERENTIAL | Routin | 09/23/2018 | | Results for this | | | e | 5:57 AM | | procedure are in the | | | | PST | | results section. | + +--------+ + + + | MAGNESIUM | Routin | 09/23/2018 | | Results for this | | | e | 5:57 AM | | procedure are in the | | | | PST | | results section. | + +--------+ + + + | BASIC METABOLIC | Routin | 09/23/2018 | | Results for this | | PANEL | e | 5:57 AM | | procedure are in the | | | | PST | | results section. | + +--------+ + + + | CBC NO DIFFERENTIAL | Routin | 09/16/2018 | | Results for this | | | e | 1:39 PM | | procedure are in the | | | | PST | | results section. | + +--------+ + + + | B TYPE NATRIURETIC | Routin | 09/16/2018 | | Results for this | | PEPTIDE | e | 1:39 PM | | procedure are in the | | | | PST | | results section. | + +--------+ + + + | MAGNESIUM | Routin | 09/16/2018 | | Results for this | | | e | 1:39 PM | | procedure are in the | | | | PST | | results section. | + +--------+ + + + | COMPREHENSIVE | Routin | 09/16/2018 | | Results for this | | METABOLIC PANEL | e | 1:39 PM | | procedure are in the | | | | PST | | results section. | + +--------+ + + + documented in this encounter Results CBC no Differential (09/23/2018 5:57 AM PST) + + + + + + | Component | Value | Ref Range | Performed | Pathologist | | | | | At | Signature | + + + + + + | WBC | 8.0 | 4.5 - 11.0 10 | EXTERNAL | | | | | | LAB | | + + + + + + | RED CELL | 3.86 (A) | 4.3 - 5.7 10 | EXTERNAL | | | COUNT | | | LAB | | + + + + + + | Hgb | 11.8 (A) | 13.5 - 18.0 | EXTERNAL | | | | | g/dL | LAB | | + + + + + + | Hematocrit, | 36.6 (A) | 41 - 50 % | EXTERNAL | | | POC | | | LAB | | + + + + + + | MCV | 94.8 | 81 - 99 fL | EXTERNAL [...] | | + +---------+ + + Magnesium (09/23/2018 5:57 AM PST) + +-------+ + + + | Component | Value | Ref Range | Performed | Pathologist | | | | | At | Signature | + +-------+ + + + | Magnesium | 2.2 | 1.7 - 2.5 mg/dL | EXTERNAL [...] + +---------+ + + Basic Metabolic Panel (09/23/2018 5:57 AM PST) + + + + + + | Component | Value | Ref Range | Performed | Pathologist | | | | | At | Signature | + + + + + + | Glucose, | 97 | 70 - 100 mg/dL | EXTERNAL | | | Fasting | | | LAB | | + + + + + + | BUN | 72 (A) | 6 - 23 mg/dL | EXTERNAL | | | | | | LAB | | + + + + + + | Creatinine | 2.41 (A) | 0.70 - 1.18 | EXTERNAL [...] + + + + | Cl | 91 (A) | 95 - 112 mmol/L | EXTERNAL | | | | | | LAB | | + + + + + + | CO2 | 37 (A) | 19 - 31 mmol/L | EXTERNAL | | | | | | LAB | | + + + + + + | Anion Gap | 14.5 | 7 - 21 mmol/L | EXTERNAL | | | | | | LAB | | + + + + + + | Estimated | 26 (A) | 60 - 140 | EXTERNAL | | | GFR | [...] | | | + +---------+ + + CBC no Differential (09/16/2018 1:39 PM PST) + + + + + + | Component | Value | Ref Range | Performed | Pathologist | | | | | At | Signature | + + + + + + | WBC | 9.8 | 4.5 - 11.0 10 | EXTERNAL | | | | | | LAB | | + + + + + + | RED CELL | 3.62 (A) | 4.3 - 5.7 10 | EXTERNAL | | | COUNT | | | LAB | | + + + + + + | Hgb | 11.1 (A) | 13.5 - 18.0 | EXTERNAL | | | | | g/dL | LAB | | + + + + + + | Hematocrit, | 34.5 (A) | 41 - 50 % | EXTERNAL | | | POC | | | LAB | | + + + + + + | MCV | 95 | 81 - 99 fL | EXTERNAL [...] + + + + | Platelet | 178 | 140 - 440 K/ L | [...] +---------+ + + B Type Natriuretic Peptide (09/16/2018 1:39 PM PST) + +---------+ + + + | Component | Value | Ref Range | Performed | Pathologist | | | | | At | Signature | + +---------+ + + + | BNP | 413 (A) | 0 - 100 pg/mL | EXTERNAL [...] | | + +---------+ + + Magnesium (09/16/2018 1:39 PM PST) + +-------+ + + + | Component | Value | Ref Range | Performed | Pathologist | | | | | At | Signature | + +-------+ + + + | Magnesium | 1.9 | 1.7 - 2.5 mg/dL | EXTERNAL [...] + +---------+ + + Comprehensive Metabolic Panel (09/16/2018 1:39 PM PST) + +---------+ + + + | Component | Value | Ref Range | Performed | Pathologist | | | | | At | Signature | + +---------+ + + + | Glucose, | 94 | 70 - 100 mg/dL | EXTERNAL | | | Fasting | | | LAB | | + +---------+ + + + | BUN | 36 (A) | 6 - 23 mg/dL | EXTERNAL | | | | | | LAB | | + +---------+ + + + | Creatinine | 2.0 (A) | 0.7 - 1.18 | EXTERNAL | | | | | mg/dL | LAB | | + +---------+ + + + | BUN/Creatin | 18.0 | 6.0 - 28.6 | EXTERNAL | | | ine Ratio | | | LAB | | + +---------+ + + + | Calcium | 8.8 | 8.5 - 10.3 | EXTERNAL | | | | | mg/dL | LAB | | + +---------+ + + + | Protein, | 6.7 | 6.0 - 8.3 g/dL | EXTERNAL | | | Total | | | LAB | | + +---------+ + + + | Albumin | 3.5 | 3.5 - 5.0 | EXTERNAL | | | | | | LAB | | + +---------+ + + + | Globulin | 3.2 | 1.8 - 3.5 | EXTERNAL | | | | | | LAB | | + +---------+ + + + | A/G Ratio | 1.1 | 1.1 - 2.4 | EXTERNAL | | | | | | LAB | | + +---------+ + + + | Bilirubin | 0.6 | 0.0 - 1.2 mg/dL | EXTERNAL | | | Total | | | LAB | | + +---------+ + + + | ALP, | 70 | 31 - 120 | EXTERNAL | | | External | | | LAB | | + +---------+ + + + | ALT | 14 | 7 - 52 U/L | EXTERNAL | | | | | | LAB | | + +---------+ + + + | AST | 16 | 13 - 39 U/L | EXTERNAL | | | | | | LAB | | + +---------+ + + + | Na | 141 | 132 - 143 | EXTERNAL | | | | | mmol/L | LAB | | + +---------+ + + + | K | 3.9 | 3.6 - 5.1 | EXTERNAL | | | | | mmol/L | LAB | | + +---------+ + + + | Cl | 105 | 95 - 112 mmol/L | EXTERNAL | | | | | | LAB | | + +---------+ + + + | CO2 | 28 | 19 - 31 mmol/L | EXTERNAL | | | | | | LAB | | + +---------+ + + + | Anion Gap | 11.9 | 7 - 21 mmol/L | EXTERNAL | | | | | | LAB | | + +---------+ + + + | Estimated | 32 (A) | 60 - 140 mg/dL | [...]
--- OUTSIDE RECORDS SUMMARY | ~2019-10-13 | XMS | Encounter Summary ---
Demographics + + + | Address | [address] | | | [place] [address] | + + + | Home Phone | | + + + | Preferred Language | Unknown | + + + | Marital Status | | + + + | Oriental Orthodox Affiliation | 1041 | + + + | Race | Unknown | + + + | Ethnic Group | Unknown | + + + Author + + + | Author | [facility] | | | and [place] | + + + | Organization | [facility] | | | [...] Team Providers + +------+ + | Care Licensed Professional Counselor Name | Role | Phone | + +------+ + | Kushal Costa MD | PCP | | + +------+ + Encounter Details +--------+ + + + + | Date | Type | Department | Care Team | Description | +--------+ + + + + | 06/05/ | Abstract | [facility] | Anastasia, | | | 2017 | | PHYSIATRY [address] | KOKI [address]quez [address] | | | | | [place], | [address] [place], | | | | | [place] [address] | [place] [address] | | | | | [phone] | [phone] | | | | | | | [...] 2019 | Visit | | [address] [facility] | | | | | | [address] [place], [place] | | | | | | [address] | | | | | | | [...]
--- OUTSIDE RECORDS SUMMARY | ~2019-10-13 | XMS | Encounter Summary ---
Demographics + + + | Address | [address] | | | [place] [address] | + + + | Home Phone | | + + + | Preferred Language | Unknown | + + + | Marital Status | | + + + | Samaritan Affiliation | 1041 | + + + | Race | Unknown | + + + | Ethnic Group | Unknown | + + + Author + + + | Author | [facility] | | | and [place] | + + + | Organization | [facility] | | | [...] Team Providers + +------+ + | Care Hand Printed Circuit Board Assembler Name | Role | Phone | + [...] Provider Unknown | | | | | [place], [place] | [phone] | | | | | [address] | (Fax) | | | | | [phone] | | | +--------+ + + + [...] 2019 | Visit | | [address] [facility] | | | | | | [address] [place] | | | | | | [address] | | | | | | | [...]
--- OUTSIDE RECORDS SUMMARY | ~2019-10-13 | XMS | Encounter Summary ---
Demographics + + + | Address | [address] | | | [place] [address] | + + + | Home Phone [...] Team Providers + +------+ + | Care Chief Minister Name | Role | Phone | [...] [address] | | | | | [place], | [place], [place] | | | | | [place] [address] | [address] | | | | | [phone] | | | +--------+ + + + [...] 2020 | Visit | | [address] [facility] | | | | | | [address] [place] | | | | | | [address] | | | | | | | [...]
--- OUTSIDE RECORDS SUMMARY | ~2019-10-13 | XMS | Encounter Summary ---
Demographics + + + | Address | [address] | | | [place] [address] | + + + | Home Phone [...] Author + + + | Author | [facility] | + + + | Organization | [facility] | + + + | Address | Unknown | + + + | Phone | Unavailable | + + + Support + + +---------+ + | Name | Relationship | Address | Phone | + + +---------+ + | None None | ECON | Unknown | Unavailable | + + +---------+ + Care Team Providers + +------+ + | Care Nuclear Equipment Operator Name | Role | Phone | [...] | | | [address]: [address] | [place], [place] | | | | | [facility] | [address] | | | | | and Healing, | [phone] | | | | | [facility] | | | | | | Floor [place], [place] | | | | | | [address] | | | | | | [phone] | | | +--------+ + + + [...] 1940 Medical | | | Record Number: [id number] Date of Test: 01/13/2008 ROUTINE EEG | | | Done at [facility] The awake background is of low [...]
--- OUTSIDE RECORDS SUMMARY | ~2019-10-13 | XMS | Encounter Summary ---
Demographics + + + | Address | [address] | | | [place] [address] | + + + | Home Phone | | + + + | Preferred Language | Unknown | + + + | Marital Status | | + + + | Yazdanism Affiliation | 1041 | + + + | Race | Unknown | + + + | Ethnic Group | Unknown | + + + Author + + + | Author | [facility] | | | and [place] | + + + | Organization | [facility] | [...] Team Providers + +------+ + | Care Administrative Underwriter Name | Role | Phone | + +------+ + | Kushal Costa MD | PCP | | + +------+ + Encounter Details +--------+ + + + + | Date | Type | Department | Care Team | Description | +--------+ + + + + | 07/26/ | Orders Only | [facility] | Danny Gandara MD | CKD (chronic kidney | | 2019 | | NEPHROLOGY [place] | [address] [place] | disease), stage IV | | | | [address] [place] | 160 [place], [place] | (HCC) (Primary Dx) | | | | 160 [place], [place] | [address] | | | | | [address] | | | | | | [phone] | | | +--------+ + + + [...] 2020 | Visit | | [address] [facility] | | | | | | 160 [place], [place] | | | | | | [address] | | | | | | | [...]
--- OUTSIDE RECORDS SUMMARY | ~2019-10-13 | XMS | Encounter Summary ---
Demographics + + + | Address | [address] | | | [place] [address] | + + + | Home Phone [...] Team Providers + +------+ + | Care Plastic Molding Operator Name | Role | Phone | [...] + + | 07/06/ | Procedure | [facility] | Sparkle Brady, | Pacemaker | | 2019 | visit | CARDIOLOGY [place] | [address] | | | | | [address] | [place], [place] | | | | | [facility] [place] [facility] | [address] | | | | | [place] | | | | | | [address] | | | | | | [phone] | | | +--------+ + + + [...] Visit | | [address] [facility] [place] | | | | | | 160 [place] | | | | | | [address] | | | | | | | [...] electrophysiology provider: None | | | Device 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
--- OUTSIDE RECORDS SUMMARY | ~2019-10-13 | XMS | Encounter Summary ---
Demographics + + + | Address | [address] | | | [place] [address] | + + + | Home Phone [...] Team Providers + +------+ + | Care Rental Salesperson Name | Role | Phone | + +------+ + | Kushal Costa MD | PCP | | + +------+ + Encounter Details +--------+ + + + + | Date | Type | Department | Care Team | Description | +--------+ + + + + | 10/27/ | Orders Only | [facility] | Danny Gandara MD | | | 2017 | | NEPRHOLOGY [place] | [address] | | | | | [address] | 160 [place], [place] | | | | | 101 [place], [place] | [address] | | | | | [address] | | | | | | [phone] | | | +--------+ + + + [...] 2019 | Visit | | [address] [facility] | | | | | | 160 [place] | | | | | | [address] | | | | | | | [...]
--- OUTSIDE RECORDS SUMMARY | ~2019-10-13 | XMS | Encounter Summary ---
Demographics + + + | Address | [address] | | | [place] [address] | + + + | Home Phone | | + + + | Preferred Language | Unknown | + + + | Marital Status | | + + + | Hinduism Affiliation | 1041 | + + + [...] Team Providers + +------+ + | Care Digital Marketing Lead Name | Role | Phone | + +------+ + | Kushal Costa MD | PCP | | + +------+ + Encounter Details +--------+---------+ + + + | Date | Type | Department | Care Team | Description | +--------+---------+ + + + | 07/26/ | Office | [facility] | Danny Gandara MD | Anemia of chronic | | 2019 | Visit | NEPHROLOGY [place] | [address] [facility] | renal failure, stage | | | | [address] | [address] [place], [place] | 3 (moderate) (HCC) | | | | [address] [place] [address] | [address] | (Primary Dx); CKD | | | | [place], [place] | | (chronic kidney | | | | [address] | | disease), stage IV | | | | [phone] | | ([facility]); Electrolyte | | | | | | imbalance risk; | | | | | | Secondary | | | | | | hyperparathyroidism | | | | | | ([facility]); Vitamin D | | | [...] 12 (L) 12/27/2018 LABPROT 286.2 (A) 11/20/2018 [id number] 06/29/2018 Assessment: Mr. Joshi is a [...] D before he comes back in 4 [facility]. Thank you Dr Costa for the opportunity to see this patient in F/U on an urgent basis tod ay as we are trying to prevent a hospitalization for severe electrolyte imbalance &/or sever e volume extremes. Please do not hesitate to call me at any time with questions or concerns. Truly yours, Danny Gandara MD [facility] documented in this enco unter Plan of Treatment +--------+ + + + + | Date | Type | Specialty | Care Team | Description | +--------+ + + + + | 11/29/ | Office | Nephrology | Danny Gandara MD | | | 2019 | Visit | | [address] [facility] | | | | | | 160 [place], [place] | | | | | | [address] | | | | | | | [...]
--- OUTSIDE RECORDS SUMMARY | ~2019-10-13 | XMS | Encounter Summary ---
Demographics + + + | Address | [address] | | | [place] [address] | + + + | Home Phone [...] Team Providers + +------+ + | Care Fitter'S Assistant Name | Role | Phone | + +------+ + | Kushal Costa MD | PCP | | + +------+ + Encounter Details +--------+ + + + + | Date | Type | Department | Care Team | Description | +--------+ + + + + | 07/26/ | Documentati | [facility] | Tobias, | | | 2019 | on | NEPHROLOGY [place] | Bandar Cannon | | | | | [address] [place] | Cable Engineer | | | | | [address] [facility] [place] | | | | | | [address] | | | | | | [phone] | | | +--------+ + + + [...] 2019 | Visit | | [address] [facility] | | | | | | 160 [place], [place] | | | | | | [address] | | | | | | | [...]
--- OUTSIDE RECORDS SUMMARY | ~2019-10-13 | XMS | Encounter Summary ---
Demographics + + + | Address | [address] | | | [place] [address] | + + + | Home Phone | | + + + | Preferred Language | Unknown | + + + | Marital Status | | + + + | Jew Affiliation | 1041 | + + + [...] Team Providers + +------+ + | Care Plug Wirer Name | Role | Phone | + +------+ + | Kushal Costa MD | PCP | | + +------+ + Encounter Details +--------+ + + + + | Date | Type | Department | Care Team | Description | +--------+ + + + + | 01/11/ | Orders Only | [facility] | Conversion | | | 2019 | | NEPHROLOGY [place] | Transaction, | | | | | [address] [place] | Provider Unknown | | | | | [address] [facility] [place] | | | | | | [address] | (Fax) | | | | | [phone] | | | +--------+ + + + [...] | Visit | | [address] [facility] | | | | | | 160 [place] | | | | | | [address] | | | | | | | [...]
--- OUTSIDE RECORDS SUMMARY | ~2019-10-13 | XMS | Encounter Summary ---
Demographics + + + | Address | [address] | | | [place] [address] | + + + | Home Phone | | + + + | Preferred Language | Unknown | + + + | Marital Status | | + + + | Rastafari Affiliation | 1041 | + + + | Race | Unknown | + + + | Ethnic Group | Unknown | + + + Author + + + | Author | [facility] | | | and [place] | + + + | Organization | [facility] | | | [...] Team Providers + +------+ + | Care Archeology Professor Name | Role | Phone | + +------+ + | Kushal Costa MD | PCP | | + +------+ + Encounter Details +--------+ + + + + | Date | Type | Department | Care Team | Description | +--------+ + + + + | 03/18/ | Orders Only | [facility] | Danny Gandara MD | | | 2017 | | NEPHROLOGY [place] | [address] [place] | | | | | [address] [place] | 160 [place], [place] | | | | | 160 [place], [place] | [address] | | | | | [address] | | | | | | [phone] | | | +--------+ + + + [...] 2019 | Visit | | [address] [facility] | | | | | | [address] [facility] | | | | | | [address] | | | | | | | [...] | | | LAB | | | [place] | | | | | + + [...]
--- OUTSIDE RECORDS SUMMARY | ~2019-10-13 | XMS | Encounter Summary ---
Demographics + + + | Address | [address] | | | [place] [address] | + + + | Home Phone | | + + + | Preferred Language | Unknown | + + + | Marital Status | | + + + | Sikhism Affiliation | 1041 | + + + | Race | Unknown | + + + | Ethnic Group | Unknown | + + + Author + + + | Author | [facility] | | | and [place] | + + + | Organization | [facility] | | [...] Team Providers + +------+ + | Care Pcts Name | Role | Phone | + +------+ + | Kushal Costa MD | PCP | | + +------+ + Encounter Details +--------+ + + + + | Date | Type | Department | Care Team | Description | +--------+ + + + + | 06/29/ | Orders Only | [facility] | Danny Gandara MD | | | 2017 | | NEPHROLOGY [place] | [address] [place] | | | | | [address] [place] | [address] [place], [place] | | | | | 160 [place], [place] | [address] | | | | | [address] | | | | | | [phone] | | | +--------+ + + + [...] | | | | | | 160 [place] | | | | | | [address] | | | | | | | [...] | | | LAB | | | IVORIAN | | | | | + + [...]
--- OUTSIDE RECORDS SUMMARY | ~2019-10-13 | XMS | Encounter Summary ---
Demographics + + + | Address | [address] | | | [place] [address] | + + + | Home Phone | | + + + | Preferred Language | Unknown | + + + | Marital Status | | + + + | Church Affiliation | 1041 | + + + | Race | Unknown | + + + | Ethnic Group | Unknown | + + + Author + + + | Author | [facility] | | | and [place] | + + + | Organization | [facility] | | [...] Team Providers + +------+ + | Care Mail Teller Name | Role | Phone | + +------+ + | Kushal Costa MD | PCP | | + +------+ + Encounter Details +--------+---------+ + + + | Date | Type | Department | Care Team | Description | +--------+---------+ + + + | 07/26/ | Office | [facility] | Danny Gandara MD | Anemia of chronic | | 2019 | Visit | NEPHROLOGY [place] | [address] [facility] | renal failure, stage | | | | [address] | [address] [place], [place] | 3 (moderate) (HCC) | | | | [address] [place] [address] | [address] | (Primary Dx); CKD | | | | [place], [place] | | (chronic kidney | | | | [address] | | disease), stage IV | | | | [phone] | | ([facility]); Electrolyte | | | | | | imbalance risk; | | | | | | Secondary | | | | | | hyperparathyroidism | | | | | | ([facility]); Vitamin D | | | | | [...] 12 (L) 12/27/2018 LABPROT 286.2 (A) 11/20/2018 [id number] 06/29/2018 Assessment: Mr. Joshi is a [...] D before he comes back in 4 [facility]. Thank you Dr Costa for the opportunity to see this patient in F/U on an urgent basis tod ay as we are trying to prevent a hospitalization for severe electrolyte imbalance &/or sever e volume extremes. Please do not hesitate to call me at any time with questions or concerns. Truly yours, Danny Gandara MD [facility] documented in this enco unter Plan of Treatment +--------+ + + + + | Date | Type | Specialty | Care Team | Description | +--------+ + + + + | 11/29/ | Office | Nephrology | Danny Gandara MD | | | 2019 | Visit | | [address] [facility] | | | | | | 160 [place], [place] | | | | | | [address] | | | | | | | [...]
--- OUTSIDE RECORDS SUMMARY | ~2019-10-13 | XMS | Encounter Summary ---
Demographics + + + | Address | [address] | | | [place] [address] | + + + | Home Phone | | + + + | Preferred Language | Unknown | + + + | Marital Status | | + + + | Buddhist Affiliation | 1041 | + + + | Race | Unknown | + + + | Ethnic Group | Unknown | + + + Author + + + | Author | [facility] | | | and [place] | + + + | Organization | [facility] | | [...] | +--------+ + + + + | 11/20/ | Orders Only | [facility] | Conversion | | | 2019 | | NEPRHOLOGY [place] | Transaction, | | | | | [address] | Provider Unknown | | | | | 101 [place], [place] | [phone] | | | | | [address] | | | | | | [phone] | | | +--------+ + + + [...] 2019 | Visit | | [address] [facility] | | | | | | 160 [place] | | | | | | [address] | | | | | | | [...] + +--------+ + + + | CBC WITH MANUAL | Routin | 11/20/2018 | | Results for this | | DIFFERENTIAL | e | 1:10 PM | | procedure are in the | | | | PST | | results section. | + +--------+ + + + | PROTEIN/CREATININE | Routin | 11/20/2018 | | Results for this | | RATIO, URINE | e | 1:10 PM | | procedure are in the | | | | PST | | results section. | + +--------+ + + + | PARATHYROID HORMONE, | Routin | 11/20/2018 | | Results for this | | INTACT | e | 1:10 PM | | [...] in this encounter Results Protein/Creatinine Ratio, Urine (11/20/2018 1:10 PM PST) + + + + + + | Component | Value | Ref Range | Performed | Pathologist | | | | | At | Signature | + + + + + + | Protein/Cre | 286.2 (A) | 0 - 150 | EXTERNAL [...] | | + +---------+ + + CBC with Manual Differential (11/20/2018 1:10 PM PST) + + + + + + | Component | Value | Ref Range | Performed | Pathologist | | | | | At | Signature | + + + + + + | WBC | 6.5 | 4.5 - 11.0 10 | EXTERNAL | | | | | | LAB | | + + + + + + | RED CELL | 3.53 (A) | 4.3 - 5.7 10 | EXTERNAL | | | COUNT | | | LAB | | + + + + + + | Hgb | 10.9 (A) | 13.5 - 18.0 | EXTERNAL | | | | | g/dL | LAB | | + + + + + + | Hematocrit, | 33.0 (A) | 41 - 50 % | EXTERNAL | | | POC | | | LAB | | + + + + + + | MCV | 93.6 | 81 - 99 fL | EXTERNAL [...] + + + + | Platelet | 159 | 140 - 440 K/ L | EXTERNAL | | | Count | | | LAB | | | Plasma | | | | | + + + + + + | MPV | | fL | EXTERNAL | | | | | | LAB | | + + + + + + | % Segmented | 81.1 (A) | 39 - 80 % | EXTERNAL | | | | | | LAB | | | Neutrophils | | | | | + + + + + + | % | 4.5 (A) | 24 - 44 % | EXTERNAL | | | Lymphocytes | | | LAB | | + + + + + + | % Monocytes | 5.7 | 0 - 12 % | EXTERNAL | | | | | | LAB | | + + + + + + | % | 8.0 (A) | 0 - 6 % | EXTERNAL | | | Eosinophils | | | LAB | | + + + + + + | % Basophils | 0.7 | 0 - 2 % | EXTERNAL | | | | | | LAB | | + + + + + + | Absolute | | / L | EXTERNAL | | | Neutrophils | | | LAB | | + [...] + +---------+ + + Parathyroid Hormone, Intact (11/20/2018 1:10 PM PST) + + + + + + | Component | Value | Ref Range | Performed | Pathologist | | | | | At | Signature | + + + + + + | PTH INTACT | 129.5 (A) | 15 - 65 [...] | | + +---------+ + + Magnesium (11/20/2018 1:10 PM PST) + +-------+ + + + [...] + +---------+ + + Renal Function Panel (11/20/2018 1:10 PM PST) + + + + + + | Component | Value | Ref Range | Performed | Pathologist | | | | | At | Signature | + + + + + + | Glucose, | 94 | 70 - 100 mg/dL | EXTERNAL | | | Fasting | | | LAB | | + + + + + + | BUN | 47 (A) | 6 - 23 mg/dL | EXTERNAL | | | | | | LAB | | + + + + + + | Creatinine | 1.67 (A) | 0.70 - 1.18 | EXTERNAL | | | | | mg/dL | LAB | | + + + + + + | PHOSPHORUS | 3.4 | 2.5 - 5.0 mg/dL | EXTERNAL [...] + + + + | K | 4.4 | 3.6 - 5.1 | EXTERNAL | | | | | mmol/L | LAB | | + + + + + + | Cl | 104 | 95 - 112 mmol/L | EXTERNAL | | | | | | LAB | | + + + + + + | CO2 | 23 | 19 - 31 mmol/L | EXTERNAL | | | | | | LAB | | + + + + + + | Anion Gap | 16.4 | 7 - 21 mmol/L | EXTERNAL | | | | | | LAB | | + + + + + + | eGFR if not | | | EXTERNAL | | | | | | LAB | | | UZBEK | | | | | + + + + + + | Phosphorus, | | | EXTERNAL | | | Inorganic | | | LAB | | + + + + + + | BUN/Creatin | 28.1 | 6.0 - 28.6 | EXTERNAL | | | ine Ratio | | | LAB | | + + + + + + | Calcium | 9.0 | 8.5 - 10.3 | EXTERNAL | | | | | mg/dL | LAB | | + + + + + + | Estimated | 40 (A) | 60 - 140 [...]
--- OUTSIDE RECORDS SUMMARY | ~2019-10-13 | XMS | Encounter Summary ---
Demographics + + + | Address | [address] | | | [place] [address] | + + + | Home Phone | | + + + | Preferred Language | Unknown | + + + | Marital Status | | + + + | Spiritism Affiliation | 1041 | + + + | Race | Unknown | + + + | Ethnic Group | Unknown | + + + Author + + + | Author | [facility] | | | and [place] | + + + | Organization | [facility] | | [...] Providers + +------+ + | Care Director Corporate Sales Name | Role | Phone | + +------+ + | Kushal Costa MD | PCP | | + +------+ + Encounter Details +--------+ + + + + | Date | Type | Department | Care Team | Description | +--------+ + + + + | 12/19/ | Orders Only | [facility] | Danny Gandara MD | | | 2017 | | NEPRHOLOGY [place] | [address] | | | | | [address] | 160 [place], [place] | | | | | 101 [place], [place] | [address] | | | | | [address] | | | | | | [phone] | | | +--------+ + + + [...] 2019 | Visit | | [address] [facility] | | | | | | 160 [place] | | | | | | [id number] | | | | | | | [...]
--- OUTSIDE RECORDS SUMMARY | ~2019-10-13 | XMS | Encounter Summary ---
Demographics + + + | Address | [address] | | | [place] [address] | + + + | Home Phone [...] Team Providers + +------+ + | Care Numerical Control Router Operator Name | Role | Phone | + +------+ + | Kushal Costa MD | PCP | | + +------+ + Encounter Details +--------+ + + + + | Date | Type | Department | Care Team | Description | +--------+ + + + + | 10/23/ | Orders Only | [facility] | Conversion | | | 2019 | | NEPHROLOGY [place] | Transaction, | | | | | [address] [place] | Provider Unknown | | | | | [address] [facility] [place] | | | | | | [address] | (Fax) | | | | | [phone] | | | +--------+ + + + [...] 2019 | Visit | | [address] [facility] | | | | | | 160 [place] | | | | | | [address] | | | | | | | [...]
--- OUTSIDE RECORDS SUMMARY | ~2019-10-13 | XMS | Encounter Summary ---
Demographics + + + | Address | [address] | | | [place] [address] | + + + | Home Phone [...] Team Providers + +------+ + | Care Smelter Charger Name | Role | Phone | + +------+ + | Kushal Costa MD | PCP | | + +------+ + Encounter Details +--------+ + + + + | Date | Type | Department | Care Team | Description | +--------+ + + + + | 10/21/ | Orders Only | [facility] | Conversion | | | 2018 | | NEPHROLOGY [place] | Transaction, | | | | | [address] [place] | Provider Unknown | | | | | [address] [facility] [place] | | | | | | [address] | (Fax) | | | | | [phone] | | | +--------+ + + + [...] | | | | | | [address] [facility] | | | | | | [address] | | | | | | | [...]
--- OUTSIDE RECORDS SUMMARY | ~2019-10-13 | XMS | Encounter Summary ---
Demographics + + + | Address | [address] | | | [place] [address] | + + + | Home Phone | | + + + | Preferred Language | Unknown | + + + | Marital Status | | + + + | Sikh Affiliation | 1041 | + + + [...] Team Providers + +------+ + | Care Layout Designer Name | Role | Phone | + +------+ + | Kushal Costa MD | PCP | | + +------+ + Encounter Details +--------+ + + + + | Date | Type | Department | Care Team | Description | +--------+ + + + + | 12/19/ | Orders Only | [facility] | Danny Gandara MD | | | 2017 | | NEPHROLOGY [place] | [address] [place] | | | | | [address] [place] | 160 [place], [place] | | | | | 160 [place], [place] | [address] | | | | | [address] | | | | | | [phone] | | | +--------+ + + + [...] 2019 | Visit | | [address] [facility] | | | | | | [address] [facility] | | | | | | [address] | | | | | | | [...] | | | LAB | | | AUSTRIAN | | | | | + + [...]
--- OUTSIDE RECORDS SUMMARY | ~2019-10-13 | XMS | Encounter Summary ---
Demographics + + + | Address | [address] | | | [place] [address] | + + + | Home Phone | | + + + | Preferred Language | Unknown | + + + | Marital Status | | + + + | Judaism Affiliation | 1041 | + + + [...] Team Providers + +------+ + | Care Ship Loader Name | Role | Phone | + [...] [address] | | | | | [place], | [address] [place], | | | | | [place] [address] | [place] [address] | | | | | [phone] | [phone] | | | | | | | [...] 2019 | Visit | | [address] [facility] | | | | | | 160 [place], [place] | | | | | | [address] | | | | | | | [...]
--- OUTSIDE RECORDS SUMMARY | ~2019-10-13 | XMS | Encounter Summary ---
Demographics + + + | Address | [address] | | | [place] [address] | + + + | Home Phone | | + + + | Preferred Language | Unknown | + + + | Marital Status | | + + + | Bahai Affiliation | 1041 | + + + | Race | Unknown | + + + | Ethnic Group | Unknown | + + + Author + + + | Author | [facility] | | | and [place] | + + + | Organization | [facility] | | | and [place] | + + + | Address | Unknown | + + + | Phone | Unavailable | + + + Support + + +---------+ + | Name | Relationship | Address | Phone | + + +---------+ + | Allegra Joshi | ECON | Unknown | | + + +---------+ + | Carlo Garcia | ECON | Unknown | | + + +---------+ + Care Team Providers + +------+ + | Care Heel Brusher Name | Role | Phone | + [...] | Lumbar | [place], | [address] | | | | | radiculopath | Chris Storm MD | [place], | | | | | y | [address] | [place] | | | | | Procedures | [place] | [address] | | | | | [place] INJECT | [place], [place] | Phone: | | | | | ANES/STEROID | [address] | [phone] | | | | | FORAMEN | Phone: | Fax: | | | | | LUMBAR/SACRA | [phone] | [phone] | | | | | L [address] IMG | Fax: | | | | | | GUIDE ,1 | [phone] | | | | | | LEVEL [place] | | | | | | | [...] + + | 07/13/ | Hospital | [facility] | [place], | Low back pain, | | 2017 | Encounter | MED CTR XRAY [address] | KOKI Vasquez [address] | unspecified back | | | | [place] | [facility], | pain laterality, | | | | [place] [address] | [place] [address] | unspecified | | | | [phone] | [phone] | chronicity, with | | | | | | sciatica presence | | | | | 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
--- OUTSIDE RECORDS SUMMARY | ~2019-10-13 | XMS | Encounter Summary ---
Demographics + + + | Address | [address] | | | [place] [address] | + + + | Home Phone [...] Providers + +------+ + | Care Health Care Consultant Name | Role | Phone | + +------+ + | Kushal Costa MD | PCP | | + +------+ + Encounter Details +--------+ + + + + | Date | Type | Department | Care Team | Description | +--------+ + + + + | 09/23/ | Orders Only | [facility] | Conversion | | | 2018 | | NEPHROLOGY [place] | Transaction, | | | | | [address] [place] | Provider Unknown | | | | | [facility] [place] | | | | | | [address] | (Fax) | | | | | [phone] | | | +--------+ + + + [...] | | | | | | 160 [place] | | | | | | [address] | | | | | | | [...]
--- OUTSIDE RECORDS SUMMARY | ~2019-10-13 | XMS | Clinical Summary ---
Demographics + + + | Address | [address] | | | [place] [address] | + + + | Home Phone | | + + + | Preferred Language | Unknown | + + + | Marital Status | Single | + + + | [employer] Affiliation [...] Team Providers + +------+ + | Care Box Toe Cementer Name | Role | Phone | + +------+ + PCP | Unavailable | + +------+ + Source Comments [facility] is fully live on both [facility] and [facility] Allergies Not on File Medications Not [...]
--- OUTSIDE RECORDS SUMMARY | ~2019-10-13 | XMS | Encounter Summary ---
Demographics + + + | Address | [address] | | | [place] [address] | + + + | Home Phone | | + + + | Preferred Language | Unknown | + + + | Marital Status | | + + + | Quaker Affiliation | 1041 | + + + | Race | Unknown | + + + | Ethnic Group | Unknown | + + + Author + + + | Author | [facility] | | | and [place] | + + + | Organization | [facility] | | [...] Providers + +------+ + | Care Child Neurologist Name | Role | Phone | + +------+ + | Kushal Costa MD | PCP | | + +------+ + Encounter Details +--------+ + + + + | Date | Type | Department | Care Team | Description | +--------+ + + + + | 10/23/ | Orders Only | [facility] | Danny Gandara MD | | | 2018 | | NEPHROLOGY [place] | [address] [place] | | | | | [address] [place] | [address] [place], [place] | | | | | [address] [place], [place] | [address] | | | | | [address] | | | | | | [phone] | | | +--------+ + + + [...] 2020 | Visit | | [address] [facility] | | | | | | [address] [place] | | | | | | [address] | | | | | | | [...] | | | LAB | | | [facility] | | | | | + + [...]
--- OUTSIDE RECORDS SUMMARY | ~2019-10-13 | XMS | Encounter Summary ---
Demographics + + + | Address | [address] | | | [place] [address] | + + + | Home Phone [...] Team Providers + +------+ + | Care Film Vault Supervisor Name | Role | Phone | + +------+ + | Amee Urrutia MD | PCP | | + +------+ + Encounter Details +--------+ + + + + | Date | Type | Department | Care Team | Description | +--------+ + + + + | 12/27/ | Hospital | [facility] | Enriqueta Reese, | Hypervolemia, | | 2019 - | Encounter | [facility] | MD [address] | unspecified | | | | CARE [address]LO[address] | [place] [address] | hypervolemia type | | 01/08/ | | [address] | [phone] | | | 2018 | | [place], [place] | | | | | | [address] | | | | | | [phone] | | | +--------+ + + + [...] 01/09/19610 Date of Service: 01/08/19929 Status: Signed Enterprise Sales Person: Nellie Clinton MD (Physician) Related Notes: Original [...] discussed with Dr. Gandara, the patient's primary bioengineer. He will check his bloo d pressure [...] patient will follow u p outpatient with business records manager. Wound care instructions have been given. Plan [...] up: Amee Urrutia MD [address], [address] [place] [address] Schedule an appointment as soon as possible for a visit in 3 days resume care with all providers you were seeing prior to admission Danny Gandara MD [address] [phone] Schedule an appointment as soon as possible [...] summary. This entry has been created using ActionBase Speech Recognition software and Matchmove. The entry has been reviewed and there [...] 1054 Date of Service: 01/08/191051 Status: Signed Enterprise Sales Person: Lyle Vences RN (Registered Nurse) 10:52 AM Disposition: Home with [facility] Transportation:spouse Face to face order added to AVS and has been faxed to [facility], confirmed with Kristine that she r eceived [...] Date of Service: 01/08/19 1023 Status: Signed Enterprise Sales Person: Francy Camacho RN (Registered Nurse) IV removed, [...] 01/08/193 Date of Service: 01/08/19411 Status: Signed Enterprise Sales Person: Anna Tran RN (Registered Nurse) No acute [...] Date of Service: 01/07/19 1324 Status: Signed Enterprise Sales Person: Nellie Clinton MD (Physician) [facility] [...] PM This entry has been created using ActionBase Speech Recognition software and Matchmove. The entry has been reviewed and there may still exist sound alike word errors. onversion Trans action, Provider Unknown - 01/07/2019 1:00 PM PDT Progress Notes by José Miguel Hylton at 01/07/19 1300 Author: José Miguel Hylton Service: (none) Author Type: Filed: 01/07/19 1310 Date of Service: 01/07/19 1300 Status: Addendum Enterprise Sales Person: Jsoé Miguel Hylton () Related Notes: Original Note by José Miguel Hylton (Computer Systems Information Director) filed at 01/07/19 0459 Visit d/t LOS. Met with Pt and [...] Date of Service: 01/07/19 1017 Status: Signed Enterprise Sales Person: Lyle Vences RN (Registered Nurse) 10:17 AM Michael and his would prefer for him to go home rather than [facility]. I sent referral to [facility]. They have had him before and will accept him. onver sarah Transaction, Provider Unknown - 01/07/2019 9:45 AM PDT Therapy Progress Note by Zak Walden PTA at 01/07/19 0945 Author: Zak Walden PTA Service: (none) Author Type: Assembler For Puller Over Hand Filed: 01/07/19 1021 Date of Service: 01/07/19 0945 Status: Signed Enterprise Sales Person: Zak Walden PTA (Assembler For Puller Over Hand) PHYSICAL THERAPY TREATMENT NOTE PT Received [...] Summary Comments: Pt supine in bed when ELECTRICAL ASSEMBLY SUPERVISOR arrives, agreeable to therapy. therapy focused on [...] Date of Service: 01/07/19 0300 Status: Signed Enterprise Sales Person: Anna Tran RN (Registered Nurse) No acute changes from previous shift. End of shift audit and 24H chart check completed. Anna Tran RN onver sarah Transaction, Provider Unknown - 01/06/2019 4:31 PM PDT Progress Notes by Hyun Irvin RN at 01/06/19 1631 Author: Hyun Irvin RN Service: (none) Author Type: Registered Nurse Filed: 01/06/19 1633 Date of Service: 01/06/19 163 Status: Signed Enterprise Sales Person: Hyun Irvin RN (Registered Nurse) Pt hypotensive (71/50) not having any sympyoms. 500cc bolus given. BP now 99/55. BLE dressi ngs removed and to be replaced by wound care tomorrow.End of shifts audits complete Hyun noel RN onver sarah Transaction, Provider Unknown - 01/06/2019 3:17 PM PDT Case Management by Lyle Vences RN at 01/06/19 7757 Author: Lyle Vences RN Service: (none) Author Type: Registered Nurse Filed: 01/06/19 1518 Date of Service: 01/06/197 Status: Signed Enterprise Sales Person: Lyle Vences RN (Registered Nurse) 3:17 PM Discussed patient with Dr. Clinton. Michael is accepted to [facility] as soon as he is med ically ready and cleared by nephrology. onver sarah Transaction, Provider Unknown - 01/06/2019 3:07 PM PDT Progress Notes by Gabby Aguayo RN at 01/06/19 6487 Author: Gabby Aguayo RN Service: Wound/Ostomy Care Author Type: Registered Nurse Filed: 01/06/19 1509 Date of Service: 01/06/19 1507 Status: Signed Enterprise Sales Person: Gabby Aguayo RN (Registered Nurse) TC received [...] Note by Deneen Mera RN at 01/06/19 6189 Author: Deneen Mera RN Service: (none) Author Type: Registered Nurse Filed: 01/06/19 2724 Date of Service: 01/06/19 5194 Status: Signed Enterprise Sales Person: Deneen Mera RN (Registered Nurse) Called patient's spouse and updated on status. Deneen Mera RN onver sarah Transaction, Provider Unknown - 01/06/2019 11:44 AM PDT Therapy Progress Note by Zak Walden PTA at 01/06/19 1144 Author: Zak Walden PTA Service: (none) Author Type: Assembler For Puller Over Hand Filed: 01/06/19 1220 Date of Service: 01/06/19 1144 Status: Signed Enterprise Sales Person: Zak Walden PTA (Assembler For Puller Over Hand) PHYSICAL THERAPY TREATMENT NOTE PT Received On: 01/06/19 Reason for Treatment: Deconditioning Requires PT Follow Up: Yes Recommendations: SNF Plan Treatment/Interventions: Continue per Primary PT POC Progress: Progressing toward goals Summary Comments: pt supine in bed when ELECTRICAL ASSEMBLY SUPERVISOR arrived, agreeable to therapy. Therapy focused on [...] Date of Service: 01/06/19 1134 Status: Signed Enterprise Sales Person: Deneen Mera RN (Registered Nurse) Bedside report given to LEONEL Purvis. Deneen Mera RN Nellie Mahajan MD - 01/06/2019 9:37 AM PDTFormatting of this note might be different from t david original. Progress Notes by Nellie Clinton MD at 01/06/19 3952 Author: Nellie Clinton MD Service: Hospitalist Author Type: Physician Filed: 01/06/19 1510 Date of Service: 01/06/19 0994 Status: Signed Enterprise Sales Person: Nellie Clinton MD (Physician) [facility] [...] Problem: IZZY (acute kidney injury) ([facility]) Active Problems: CKD (chronic kidney disease) stage 3, GFR 30-59 ml/min ([facility]) Essential hypertension, benign Bilateral lower extremity edema Chronic atrial fibrillation ([facility]) Cardiac pacemaker in situ NEETU (obstructive sleep apnea) Pulmonary hypertension ([facility]) Right heart failure ([facility]) Chronic diastolic heart failure ([facility]) ASSESSMENT & PLAN Shortness of breath. [...] AM This entry has been created using ActionBase Speech Recognition software and Matchmove. The entry has been reviewed and there may still exist sound alike word errors. onversion Trans action, Provider Unknown - 01/06/2019 6:17 AM PDT Nurse Progress Note by Caryn Polanco RN at 01/06/19616 Author: Caryn Polanco RN Service: (none) Author Type: Registered Nurse Filed: 01/06/19616 Date of Service: 01/06/19616 Status: Signed Enterprise Sales Person: Caryn Polanco RN (Registered Nurse) A&Ox4. Pt remains on RA. No acute changes during shift. 24 hour chart check and end of shift review completed. Caryn Polanco RN onver sarah Transaction, Provider Unknown - 01/05/2019 3:46 PM PDT Progress Notes by Dayna Roy Supervisor Phosphorus Processing at 01/05/19 1546 Author: Julio Saueretic Intern Service: (none) Author Type: Registered gagandeepsmiley Filed: 01/05/191546 Date of Service: 01/05/191545 Status: Attested Enterprise Sales Person: Julio Saueretic Intern (Registered Dietitian) Cosigner: Jacob baron RD at 01/05/19 1548 Attestation signed by Jacob Diaz RD at 01/05/[address] 01/05/19 1559 Subjective Timepoint Admit Pt c/o Pt triggered for screening secondary to LOS 8. Pt presented to [facility] with SOB and ang darcy. [...] pt has followed RD in past at [facility], doesn't cook with salt, uses [...] Low Follow up date 01/12/19 Dayna Roy, Supervisor Phosphorus Processing onver sarah [place]action, Provider Unknown - 01/05/2019 3:05 PM PDT Progress Notes by Pedrito Crane RPH at 01/05/19 4461 Author: Pedrito Crane RPH Service: Pharmacy Author Type: Pharmacist Filed: 01/05/19 1505 Date of Service: 01/05/19 1505 Status: Signed Enterprise Sales Person: Pedrito Crane RPH (Pharmacist) Rx CHF Medication [...] Date of Service: 01/05/19 1033 Status: Signed Enterprise Sales Person: Nellie Clinton MD (Physician) [facility] [...] 97.5 F (36.4 C) (Oral) | R bnoi 18 | Ht 1.676 m (5' 6") [...] AM This entry has been created using ActionBase Speech Recognition software and Matchmove. The entry has been reviewed and there may still exist sound alike word errors. onversion Trans action, Provider Unknown - 01/05/2019 10:10 AM PDT Case Management by Lyle Vences RN at 01/05/19 1010 Author: Lyle Vences RN Service: (none) Author Type: Registered Nurse Filed: 01/05/19 1047 Date of Service: 01/05/19 1010 Status: Addendum Enterprise Sales Person: Lyle Vences RN (Registered Nurse) Related Notes: [...] Date of Service: 01/05/19 06 Status: Signed Enterprise Sales Person: Angie Bowen RN (Registered Nurse) Pt A&Ox4, [...] 01/04/192217 Date of Service: 01/04/192209 Status: Signed Enterprise Sales Person: Shar Dawson MD (Physician) [facility] Service: Hospitalist Progress Note Pt: Michael Joshi AGE/SEX: 78 y.o. male ROOM: [facility]/7114-1 : 1940 PCP: AMEE URRUTIA ADMIT DATE: [...] other chronic comorbidities who p resents to [facility] ER from [facility] on 12/27 for acute dyspnea/anginal [...] not d/c'd. He is accepted to a [facility] and also he does get unaboots [...] hours. No results for input(s): PHART, PO2ART, JOY0RKA, C8UDQYZJ, BEART in the last 168 hours. No results for input(s): APTT, INR, PTT in the last 168 hours. No results for input(s): TSH, T3FREE, FREET4 in the last 168 hours. No results for input(s): CKTOTAL, TROPONINI, TROPONINT, CKMBINDEX in the last 168 hours. Results No results found for the last 72 hours. RADIOLOGY: Sc Myocardial Perfusion Spect (stress And Rest) Result [...] heart failure (HCC) Chronic systolic heart failure ([facility]) ASSESSMENT & PLAN 1. Acute respiratory [...] and managing patient and counseling/coordination. Dictation software, [employer], used which may contain error for similar [...] Date of Service: 01/04/19 1432 Status: Signed Enterprise Sales Person: Pablo Larson RN (Registered Nurse) Patient had [...] Date of Service: 01/04/19 09 Status: Addendum Enterprise Sales Person: Louise Mancilla RN (Registered Nurse) Related Notes: Original Note by Louise Mancilla RN (Registered Nurse) filed at 01/04/19 1021 0900: called Jl at [facility]- no answer, left voice mail. 1015: called [facility] again- was transferred to [place] again- no answer. I called back an d asked if there was another way to get a hold of him. Raine whom answered the phone said that she will try to track him down and have him call me back. 1130: Akil at [facility] called back and said they can accept [...] 01/04/19624 Date of Service: 01/04/19624 Status: Signed Enterprise Sales Person: Angie Bowen RN (Registered Nurse) Pt A&Ox4, VSS, no acute changes from previous shift. Chart check complete. Angie cunningham RN onver sarah Transaction, Provider Unknown - 01/03/2019 5:01 PM PDT Nurse Progress Note by Gabby Groves RN at 01/03/191700 Author: Gabby Groves RN Service: (none) Author Type: Registered Nurse Filed: 01/03/191701 Date of Service: 01/03/191700 Status: Signed Enterprise Sales Person: Gabby Stump, RN (Registered Nurse) Pt stable [...] Date of Service: 01/03/19 1012 Status: Signed Enterprise Sales Person: Shar Dawson MD (Physician) [facility] Service: Hospitalist Progress Note Pt: Michael Joshi AGE/SEX: 78 y.o. male ROOM: [facility]- : 1940 PCP: MAEE URRUTIA ADMIT DATE: 12/27/2018 TODAY'S DATE: 01/03/2019 [...] other chronic comorbidities who p resents to [facility] ER from [facility] on 12/27 for acute dyspnea/anginal [...] hours. No results for input(s): PHART, PO2ART, QEP5ZET, C0LJNSHS, BEART in the last 168 hours. No results for input(s): APTT, INR, PTT in the last 168 hours. No results for input(s): TSH, T3FREE, FREET4 in the last 168 hours. No results for input(s): CKTOTAL, TROPONINI, TROPONINT, CKMBINDEX in the last 168 hours. Results No results found for the last 72 hours. RADIOLOGY: Sc Myocardial Perfusion Spect (stress And Rest) Result [...] heart failure (HCC) Chronic systolic heart failure ([facility]) ASSESSMENT & PLAN 1. Acute respiratory [...] and managing patient and counseling/coordination. Dictation software, [employer], used which may contain error for similar [...] 01/03/19617 Date of Service: 01/03/19616 Status: Signed Enterprise Sales Person: Angie Bowen RN (Registered Nurse) Pt A&Ox4, VSS. No acute changes from previous shift. Chart check complete. Angie mcintosh RN Shar Mehta MD - 01/02/2019 9:58 AM PDT Progress Notes by Shar Dawson MD at 01/02/19957 Author: Shar Dawson MD Service: Hospitalist Author Type: Physician Filed: 01/02/19 1630 Date of Service: 01/02/19957 Status: Signed Enterprise Sales Person: Shar Dawson MD (Physician) [facility] [...] other chronic comorbidities who p resents to [facility] ER from [facility] on 12/27 for acute dyspnea/anginal [...] hours. No results for input(s): PHART, PO2ART, JHX0NCY, N5AHVJGC, BEART in the last 168 hours. No results for input(s): APTT, INR, PTT in the last 168 hours. Recent Labs Lab 12/27/18 05 TSH 1.500 Recent Labs Lab 12/27/18 0751 12/27/18516 TROPONINI 0.046* 0.048* Results No results found for the last 72 hours. RADIOLOGY: Sc Myocardial Perfusion Spect (stress And Rest) Result Date: 12/28/2018 1. Mild heterogeneity of uptake on both rest and stress images probably related to patient body habitus/artifact. No definite evidence of ischemia or infarct. See above. 2. Normal L V wall motion. 3. LVEF 49% rest, 62% stress. Low risk stratification. Signed by: Kaleb rGay Sign Date/Time: 12/28/2018 1:56 PM Echo Cardiac [...] heart failure (HCC) Chronic systolic heart failure ([facility]) ASSESSMENT & PLAN 1. Acute respiratory [...] and managing patient and counseling/coordination. Dictation software, [employer], used which may contain error for similar [...] 01/02/1914 Date of Service: 01/02/19512 Status: Signed Enterprise Sales Person: Angie Bowen RN (Registered Nurse) Pt A&Ox4, [...] 01/01/191750 Date of Service: 01/01/191750 Status: Signed Enterprise Sales Person: Radha Chirinos RN (Registered Nurse) 12 hour chart check complete. No acute changes this shift onver sarah Transaction, Provider Unknown - 01/01/2019 10:36 AM PDT Case Management by Lyle Vences RN at 01/01/191035 Author: Lyle Vences RN Service: (none) Author Type: Registered Nurse Filed: 01/01/19 1037 Date of Service: 01/01/191035 Status: Signed Enterprise Sales Person: Lyle Vences RN (Registered Nurse) 10:37 AM Called and updated [facility] admissions that Michael would not be ready for DC today. har Solorzano MD - 01/01/2019 9:41 AM PDT Progress Notes by Shar Dawson MD at 01/01/19940 Author: Shar Dawson MD Service: Hospitalist Author Type: Physician Filed: 01/01/194 Date of Service: 01/01/19940 Status: Signed Enterprise Sales Person: Shar Dawson MD (Physician) [facility] [...] other chronic comorbidities who p resents to [facility] ER from [facility] on 12/27 for acute dyspnea/anginal [...] hours. No results for input(s): PHART, PO2ART, LII8KAH, T4EPQLLH, BEART in the last 168 hours. No results for input(s): APTT, INR, PTT in the last 168 hours. Recent Labs Lab 12/27/18 0517 TSH 1.500 Recent Labs Lab 12/27/18 0751 12/27/18 0517 TROPONINI 0.046* 0.048* Results No results found for the last 72 hours. RADIOLOGY: Sc Myocardial Perfusion Spect (stress And Rest) Result [...] and managing patient and counseling/coordination. Dictation software, [employer], used which may contain error for similar [...] 01/01/19619 Date of Service: 01/01/19616 Status: Signed Enterprise Sales Person: Lisha Cruz RN (Registered Nurse) Low blood [...] 12/31/182249 Date of Service: 12/31/182248 Status: Signed Enterprise Sales Person: Lisha Cruz RN (Registered Nurse) Orthostatic bps Layin 87/55 Sittin 80/52 Standing 2246: 84/52 har Solorzano MD - 12/31/2018 7:59 PM PDT Progress Notes by Shar Dawson MD at 12/31/181958 Author: Shar Dawson MD Service: Hospitalist Author Type: Physician Filed: 12/31/182220 Date of Service: 12/31/181958 Status: Signed Enterprise Sales Person: Shar Dawson MD (Physician) [facility] Service: Hospitalist Progress Note Pt: Michael Huttonjairon AGE/SEX: 78 y.o. male ROOM: [facility]-1 : 1940 PCP: AMEE URRUTIA ADMIT DATE: [...] other chronic comorbidities who p resents to [facility] ER from [facility] on 3/10 for acute dyspnea/anginal [...] hours. No results for input(s): PHART, PO2ART, DCC6MDB, E0INERRZ, BEART in the last 168 hours. No results for input(s): APTT, INR, PTT in the last 168 hours. Recent Labs Lab 12/27/18 05 TSH 1.500 Recent Labs Lab 12/27/18 0751 12/27/18516 TROPONINI 0.046* 0.048* Results No results found for the last 72 hours. RADIOLOGY: Sc Myocardial Perfusion Spect (stress And Rest) Result [...] 12/31/181903 Date of Service: 12/31/181903 Status: Signed Enterprise Sales Person: Radha Chirinos RN (Registered Nurse) 12 hour chart check completed onver sarah Transaction, Provider Unknown - 12/31/2018 12:53 PM PDT Nurse Progress Note by Ana Horn RN at 12/31/181252 Author: Ana Horn RN Service: Wound/Ostomy Care Author Type: Registered Nurse Filed: 12/31/181252 Date of Service: 12/31/181252 Status: Signed Enterprise Sales Person: Ana Horn RN (Registered Nurse) 2 layer Coban compression wraps applied bilaterally. Ana Horn RN, CMSRN, [facility] Inpatient Wound Care 12/31/2018 12:53 PM [phone] onver sarah Transaction, Provider Unknown - 12/31/2018 10:28 AM PDT Therapy Progress Note by Zak Walden PTA at 12/31/18 1028 Author: Zak Walden PTA Service: (none) Author Type: Assembler For Puller Over Hand Filed: 12/31/18 1123 Date of Service: 12/31/18 1028 Status: Signed Enterprise Sales Person: Zak Walden PTA (Assembler For Puller Over Hand) PHYSICAL THERAPY TREATMENT NOTE PT Received On: 12/31/18 Reason for Treatment: Deconditioning Requires PT Follow Up: Yes Recommendations: SNF Plan Treatment/Interventions: Continue per Primary PT POC Progress: Slow progress, medical status limitations Summary Comments: Pt supine in Bed when ELECTRICAL ASSEMBLY SUPERVISOR arrives, therapy focused on LE strengthening and [...] 12/31/18953 Date of Service: 12/31/18952 Status: Signed Enterprise Sales Person: Lyle Vences RN (Registered Nurse) 9:53 AM [...] 12/31/1853 Date of Service: 12/31/18539 Status: Signed Enterprise Sales Person: Lisha Cruz RN (Registered Nurse) Urine output 1195 this shift, clear and malodorous. VS stable. Restful shift. End of shift review complete. Lisha Cruz RN onver sarah Transaction, Provider Unknown - 12/30/2018 7:34 PM PDT Nurse Progress Note by Radha Chirinos RN at 12/30/181933 Author: Radha Chirinos RN Service: (none) Author Type: Registered Nurse Filed: 12/30/181934 Date of Service: 12/30/181933 Status: Signed Enterprise Sales Person: Radha Chirinos RN (Registered Nurse) 12 hour chart check complete onver sarah Transaction, Provider Unknown - 12/30/2018 3:09 PM PDT Nurse Progress Note by Alfred Phan RN at 12/30/18 150 Author: Alfred Phan RN Service: Wound/Ostomy Care Author Type: Registered Nurse Filed: 12/30/181510 Date of Service: 12/30/181508 Status: Signed Enterprise Sales Person: Alfred Phan RN (Registered Nurse) Wound care [...] Date of Service: 12/30/18 120 Status: Addendum Enterprise Sales Person: Lyle Vences RN (Registered Nurse) Related Notes: Original Note by Lyle Vences RN (Registered Nurse) filed at 12/30/1809 27 12:01 PM Received call from [facility] in [place]. They can accept Michael . I let them know he will likely be here until at least Friday. 12:09 PM PASSR sent to [facility]. 3:11 PM Discussed patient with Dr. Dawson. Michael will need another 48-72 hours in the hospital. Plan is to go to [facility] in [place]. Shar Mehta MD - 12/30/2018 9:28 AM PDT Progress Notes by Shar Dawson MD at 12/30/18927 Author: Shar Dawson MD Service: Hospitalist Author Type: Physician Filed: 12/30/18 1707 Date of Service: 12/30/18927 Status: Signed Enterprise Sales Person: Shar Dawson MD (Physician) [facility] [...] other chronic comorbidities who p resents to [facility] ER from [facility] on 12/27 for acute dyspnea/anginal [...] hours. No results for input(s): PHART, PO2ART, ARO8JBJ, B3OPHUSY, BEART in the last 168 hours. No results for input(s): APTT, INR, PTT in the last 168 hours. Recent Labs Lab 12/27/18 0517 TSH 1.500 Recent Labs Lab 12/27/18 0751 12/27/18 0517 TROPONINI 0.046* 0.048* Results No results found for the last 72 hours. RADIOLOGY: Sc Myocardial Perfusion Spect (stress And Rest) Result [...] heart failure (HCC) Chronic systolic heart failure ([facility]) ASSESSMENT & PLAN 1. Acute respiratory [...] and managing patient and counseling/coordination. Dictation software, [employer], used which may contain error for similar [...] 12/30/18913 Date of Service: 12/30/18906 Status: Signed Enterprise Sales Person: Lyle Vences RN (Registered Nurse) 12/30/18903 Discharge [...] concerns No Transportation issues No Patient/Family concerns [place] [facility] Previous home health equipment No Vascular access device No Ostomy/Drains/Appliances No Anticipated Disposition Facility Type prison facility;Home health correction Health Care Facility Other (comment) ([facility] ) Assisted Facility ([facility]) Met with Michael and discussed discharge planning, Pt is a 78 y.o., male who lives in [facility] with his Allegra. PT is currently recomending SNF, but patient would prefer to retur home. [facility] . His baseline is using a walker/ [...] 12/30/18915 Date of Service: 12/30/18834 Status: Signed Enterprise Sales Person: Pedrito Beck PT (Physical Therapist) PHYSICAL THERAPY [...] 12/30/1849 Date of Service: 12/30/18547 Status: Signed Enterprise Sales Person: Lisha Cruz RN (Registered Nurse) 7 beats of V tach per television equipment operator at 0542. Patient asymptomatic. Otherwise VS stable. [...] 184 Date of Service: 12/29/181834 Status: Signed Enterprise Sales Person: Kristine Mueller RN (Registered Nurse) No acute [...] 12/29/182143 Date of Service: 12/29/181614 Status: Signed Enterprise Sales Person: Shar Dawson MD (Physician) [facility] Service: Hospitalist Progress Note Pt: Michael Joshi AGE/SEX: 78 y.o. male ROOM: [address] [place] [address] : 1940 PCP: AMEE URRUTIA ADMIT DATE: [...] other chronic comorbidities who p resents to [facility] ER from [facility] on 12/27 for acute dyspnea/anginal [...] hours. No results for input(s): PHART, PO2ART, KBR1UQZ, S2LGDANK, BEART in the last 168 hours. No results for input(s): APTT, INR, PTT in the last 168 hours. Recent Labs Lab 12/27/18 0517 TSH 1.500 Recent Labs Lab 12/27/18 0751 12/27/18 0517 TROPONINI 0.046* 0.048* Results No results found for the last 72 hours. RADIOLOGY: Sc Myocardial Perfusion Spect (stress And Rest) Result [...] and managing patient and counseling/coordination. Dictation software, [employer], used which may contain error for similar sounding words even af ter review. Personal communication requested for any clarification. Portions of this chart may have been copied from previous notes for continuity of care purp ose onversion Transac tion, Provider Unknown - 12/29/2018 3:53 PM PDTFormatting of this note might be different f rom the original. Therapy Progress Note by Avla Mohamud PT at 12/29/18 4920 Author: Alva Mohamud PT Service: (none) Author Type: Physical Therapist Filed: 12/29/18 6000 Date of Service: 12/29/18 7154 Status: Signed Enterprise Sales Person: Alva Mohamud PT (Physical Therapist) PHYSICAL THERAPY TREATMENT NOTE PT Received On: 12/29/18 Reason for Treatment: Deconditioning Requires PT Follow Up: Yes Focus for Next Treatment: Formal Balance Assessment Recommendations: SNF Barriers to Discharge: Physical Deficits Impacting Functional [place], Self-care Defic its Impacting Functional [place], Lack of Family Support/Training PT Ready for [...] within the room. Pt benefit s from vrxq-rz-knnv instruction for transfer techinque and does better [...] 12/29/1846 Date of Service: 12/29/18730 Status: Signed Enterprise Sales Person: Maria De Jesus De La Cruz RN [...] 12/29/18105 Date of Service: 12/29/18100 Status: Signed Enterprise Sales Person: Rhonda Spann RRT (Certified Respiratory Therapist) Per [...] 12/28/181958 Date of Service: 12/28/181957 Status: Signed Enterprise Sales Person: Kristine Mueller RN (Registered Nurse) Urine output for shift was 2900 mL. Intake 1000 mL. Kristine Mueller RN onver sarah Transaction, Provider Unknown - 12/28/2018 7:06 PM PDT Nurse Progress Note by Kristine Mueller RN at 12/28/181905 Author: Kristine Mueller RN Service: (none) Author Type: Registered Nurse Filed: 12/28/181908 Date of Service: 12/28/181905 Status: Signed Enterprise Sales Person: Kristine Mueller RN (Registered Nurse) No acute [...] Service: Hospitalist Author Type: Physician Filed: 12/28/18 1533 Date of Service: 12/28/18944 Status: Addendum Enterprise Sales Person: Franki Carrizales MD (Physician) Related Notes: Original [...] other chronic comorbidities who p resents to [facility] ER from [facility] on 12/27 for acute dyspnea/anginal [...] 12/28/1840 Date of Service: 12/28/18937 Status: Signed Enterprise Sales Person: Lyle Vences RN (Registered Nurse) 9:39 AM [...] 12/28/18708 Date of Service: 12/28/18704 Status: Signed Enterprise Sales Person: Maria De Jesus De La Cruz RN [...] 6:59 PM PDT Nurse Progress Note by Krisitne Mueller RN at 12/27/181858 Author: Kristine Mueller RN Service: (none) Author Type: Registered Nurse Filed: 12/27/181940 Date of Service: 12/27/181858 Status: Signed Enterprise Sales Person: Kristine Mueller RN (Registered Nurse) Pt transfered [...] Date of Service: 12/27/18 104 Status: Signed Enterprise Sales Person: Ashley Chappell RN (Registered Nurse) Pacemaker interrogation completed, see report on patient's chart. onver sarah Transaction, Provider Unknown - 12/27/2018 8:06 AM PDT Nurse Progress Note by Pablo Amezcua RN at 12/27/18805 Author: Pablo Amezcua RN Service: (none) Author Type: Registered Nurse Filed: 12/27/18805 Date of Service: 12/27/18805 Status: Signed Enterprise Sales Person: Pablo Amezcua RN (Registered Nurse) RN spoke with Dr. Carrizales regarding pt's labetolol administration. See VO of hydralazine. Pablo Amezcua RN onver sarah Transaction, Provider Unknown - 12/27/2018 6:45 AM PDT Nurse Progress Note by Rebeka Rodrigues RN at 12/27/18644 Author: Rebeka Rodrigues RN Service: (none) Author Type: Registered Nurse Filed: 12/27/18644 Date of Service: 12/27/18644 Status: Signed Enterprise Sales Person: Rebeka Rodrigues RN (Registered Nurse) End of shift audit complete. onver sarah Transaction, Provider Unknown - 12/27/2018 5:33 AM PDT Pharmacy Note by Kojo Draper RPH at 12/27/18532 Author: Kojo Draper RPH Service: Pharmacy Author Type: Pharmacist Filed: 12/27/18532 Date of Service: 12/27/18532 Status: Signed Enterprise Sales Person: Kojo Draper RPH (Pharmacist) Clinical Pharmacy Note: [...] 2019 | Visit | | [address] [facility] | | | | | | [address] [place], [place] | | | | | | [address] | | | | | | | [...] | | | | | performed at [facility], [address] | | | | | | Cesar Ley[place], | | | | | | [place] [address] | | | | + + + [...] W | | | | | | [facility], | | | | | | [place] [address] | | | | + + + [...] | | | | | performed at [facility], [address] | | | | | | [facility], | | | | | | [place] [address] | | | | + + + [...] | | | Basophils | performed at [facility], [address] | K/uL | LAB | | | | [place]esar Leyva, | | | | | | [place] [address] | | | | + + + [...] EXTERNAL | | | | performed at [facility], [address] | | LAB | | | | Cesar Leyva, | | | | | | [place] [id number] | | | | + + + [...] | | | | | performed at [facility], [address] | | | | | | Cesar [facility], | | | | | | [place] [address] | | | | + + + [...] | | | Basophils | performed at [facility], [address] | K/uL | LAB | | | | [place] Ley[place], | | | | | | [place] [address] | | | | + + + [...] EXTERNAL | | | | performed at [facility], [address] | | LAB | | | | Cesar Leyva, | | | | | | [place] [address] | | | | + + + [...] | | | | | performed at [facility], [address] | | | | | | [facility], | | | | | | [place] [address] | | | | + + + [...] | | | Basophils | performed at [facility], [address] | K/uL | LAB | | | | Cesar Leyva, | | | | | | [place] [id number] | | | | + + + [...] EXTERNAL | | | | performed at [facility], [address] | | LAB | | | | Cesar Leyva, | | | | | | [place] [address] | | | | + + + [...] | | | | | performed at [facility], [address] | | | | | | [facility], | | | | | | [place] [address] | | | | + + + [...] | | | Basophils | performed at [facility], [address] | K/uL | LAB | | | | Cesar Leyva, | | | | | | [place] [address] | | | | + + + [...] EXTERNAL | | | | performed at [facility], [address] | | LAB | | | | Cesar Leyva, | | | | | | [place] [id number] | | | | + + + [...] W | | | | | | [facility], | | | | | | [place] [address] | | | | + + + [...] | | | Basophils | performed at [facility], [address] | K/uL | LAB | | | | Cesar Leyva, | | | | | | [place] [address] | | | | + + + [...] EXTERNAL | | | | performed at [facility], [address] | | LAB | | | | Cesar Leyva, | | | | | | [place] [address] | | | | + + + [...] | | | | | performed at [facility], [address] | | | | | | [facility], | | | | | | [place] [address] | | | | + + + [...] | | | | | | at [facility];[address] | | | | | [address];[place] [address] | | | | + + + [...] | | | Basophils | performed at [facility], [address] | K/uL | LAB | | | | Cesar Leyva, | | | | | | [place] [address] | | | | + + + [...] EXTERNAL | | | | performed at [facility], [address] | | LAB | | | | Cesar Leyva, | | | | | | [place] [address] | | | | + + + [...] | | | | | performed at [facility], [address] | | | | | | Cesar Autumn, | | | | | | [place] [id number] | | | | + + + [...] | | | Basophils | performed at [facility], [address] | K/uL | LAB | | | | Cesar Tang, | | | | | | [place] [address] | | | | + + + [...] EXTERNAL | | | | performed at [facility], [address] | | LAB | | | | Cesar Leyva, | | | | | | [place] [address] | | | | + + + [...] | | | | | performed at [facility], [address] | | | | | | [facility], | | | | | | [place] [address] | | | | + + + [...] | | | Basophils | performed at [facility], [address] | K/uL | LAB | | | | Cesar Leyva, | | | | | | [place] [address] | | | | + + + [...] EXTERNAL | | | | performed at [facility], [address] | | LAB | | | | Cesar Leyva, | | | | | | [place] [address] | | | | + + + [...] | | | | | performed at [facility], [address] | | | | | | [facility], | | | | | | [place] [address] | | | | + + + [...] | | | Basophils | performed at [facility], [address] | K/uL | LAB | | | | Cesar Autumn, | | | | | | [place] [address] | | | | + + + [...] EXTERNAL | | | | performed at [facility], [address] | | LAB | | | | Cesar Leyva, | | | | | | [place] [address] | | | | + + + [...] | | | | | performed at [facility], [address] | | | | | | [facility], | | | | | | [place] [address] | | | | + + + [...] | | | Reticulocyt | performed at [facility];[address] | | LAB | | | [address] | Renetta Leyva;[place], [place] | | | | | | [address] | | | | + + + [...] | | | ------REPORT ADDENDED------ INDICATIONS acute CA | | | CONCLUSIONS 1. This was [...] Aortic Valve: | | | There is ywhc-rd-dsajongr aortic regurgitation. Mitral Valve: Mild | | [...] TR Vmax: 3.49 m/s | | | Greens Planter: ROSY Authenticated by: Pedrito Taylor MD Report | | | Date/Time: 12-27-2018 13:58:10 | | + + + + + | Procedure Note | + + | Edgardo Piper Conversion - 06/01/2019 8:17 PM PDT Patient Name: Kel Joshi of | | : 1940 Performing Physician: Pedrito Taylor | | MD ------REPORT | | ADDENDED------INDICATIONS acute CA CONCLUSIONS 1. This was a | | [...] valve is mildly calcified.Aortic Valve: There is jkpc-sn-zaytishs aortic | | regurgitation.Mitral Valve: Mild mitral [...] mlLAESV Index (A-L): 109.85 ml/m2LAAs A2C: 64.13 [id number] A-L A2C: 351.26 | | mlLALs A2C: 9.93 cmLAAs A4C: 45.52 [id number] A-L A4C: 173.98 mlLALs A4C: 10.11 | | cmTAPSE: 1.10 cmHR: 80.22 BPMAV maxP.70 mmHgAV meanP.31 mmHgAV Vmax: | | 1.55 m/Davie Vmean: 1.10 m/Davie VTI: 33.13 cmAVA Vmax: 2.73 cm2AVA (VTI): 2.82 | | pu4CNAY Vmax: 0.00 cm2/m2AVAI (VTI): 0.00 cm2/m2LVCI Dopp: 2.84 l/fbbg2BJHM Dopp: | | 6.45 l/minHR: 68.91 BPMLVOT maxP.89 mmHgLVOT meanP.48 mmHgLVSI Dopp: | | 41.23 ml/m2LVSV Dopp: 93.59 mlLVOT Vmax: 0.85 m/sLVOT Vmean: 0.58 m/sLVOT VTI: | | 18.72 cmSeptal e': 0.08 m/sLateral e': 0.09 m/sHR: 59.71 BPMPV maxP.15 | | mmHgPV meanP.55 mmHgPV Vmax: 0.53 m/sPV Vmean: 0.34 m/sPV VTI: 10.42 cmRV | | S': 0.06 m/sTR maxP.74 mmHgTR Vmax: 3.49 m/s Greens Planter: MWAuthenticated by: | | Pedrito Taylor MDReport [...] |TR Vmax: 3.49 m/s | | | |Greens Planter: MW | |Authenticated by: Pedrito Taylor MD [...] | | | | | | at [facility] [address] | | | | | | [address];[place] [address] | | | | + + + [...] | | LAB | | | | [facility];[address] [facility] | | | | | | [facility];[place] [address] | | | | + + + [...] | | | | | [place] [address] | | | | + + + [...] | | | | | | at [facility] [address] | | | | | | [address]vd;[place] [address] | | | | + + + [...] | | | Basophils | performed at [facility], [address] | K/uL | LAB | | | | [place], | | | | | | [place] [address] | | | | + + + [...] | | | | | [place] [address] | | | | + + + [...] EXTERNAL | | | | performed at [facility], [address] | | LAB | | | | Cesar Aut[place], | | | | | | [place] [address] | | | | + + + [...] EXTERNAL | | | | performed at [facility], [address] | | LAB | | | | Cesar Ley[place], | | | | | | [place] [address] | | | | + + + [...] | | | | | performed at [facility], [address] | | | | | | [facility], | | | | | | [place] [address] | | | | + + + [...] | | | External | performed at [facility], [address] | | LAB | | | | [place], | | | | | | [place] [address] | | | | + + + [...] | | | Cholesterol | performed at [facility], [address] | | LAB | | | , | Cesar Tang, | | | | | Calculated, | [place] [address] | | | | | External | [...] | | | | | performed at [facility], [address] | | | | | | Cesar Le[place], | | | | | | [place] [id number] | | | | + + + [...] + + | Historically converted procedure from [facility] Epic environment | EXTERNAL LAB | + [...]
--- OUTSIDE RECORDS SUMMARY | ~2019-10-13 | XMS | Encounter Summary ---
Demographics + + + | Address | [address] | | | [place] [address] | + + + | Home Phone [...] Team Providers + +------+ + | Care It Professional Name | Role | Phone | + +------+ + | Kushal Costa MD | PCP | | + +------+ + Encounter Details +--------+ + + + + | Date | Type | Department | Care Team | Description | +--------+ + + + + | 12/19/ | Orders Only | [facility] | Danny Gandara MD | | | 2017 | | NEPHROLOGY [place] | [address] [place] | | | | | [address] [place] | [address] [place], [place] | | | | | [address] [place], [place] | [address] | | | | | [address] | | | | | | [phone] | | | +--------+ + + + [...] Visit | | [address] [facility] | | | | | | [address] [facility] | | | | | | [address] | | | | | | | [...]
--- OUTSIDE RECORDS SUMMARY | ~2019-10-13 | XMS | Encounter Summary ---
Demographics + + + | Address | [address] | | | [place] [address] | + + + | Home Phone [...] + | Author | [facility] | | | and [place] | + + + | Organization | [facility] | | | [...] Team Providers + +------+ + | Care Yoker Name | Role | Phone | + +------+ + | Kushal Costa MD | PCP | | + +------+ + Encounter Details +--------+ + + + + | Date | Type | Department | Care Team | Description | +--------+ + + + + | 05/12/ | Orders Only | [facility] | Provider, | Chronic kidney | | 2019 | | SYSTEM GENERIC OP | MD [address] | disease, stage III | | | | CONVERSION [address] | [place] [address] | (moderate) (HCC); | | | | [address] [place], [place] | [place] [address] | Hypokalemia; | | | | [address] | | Localized edema; | | | | [phone] | | Essential (primary) | | | [...] 2020 | Visit | | [address] [facility] | | | | | | [address] [place] | | | | | | [address] | | | | | | | [...] | | | | | (moderate) ([facility]) | 09/28/2019 | | | | | Hypokalemia | | | | | | Localized edema | | | | | | Essential (primary) | | | | | | hypertension Fluid | | | | | | overload Secondary | | | | | | hyperparathyroidism | | | | | | of renal origin | | | | | | ([facility]) | | + +------+--------+ + + | Basic Metabolic | Lab | Routin | Chronic kidney | Expected: | | Panel | | e | disease, stage III | 11/02/2018, Expires: | | | | | (moderate) ([facility]) | 10/26/2019 | | | | | [...] | | | | | (moderate) ([facility]) | 04/19/2020 | | | | | Essential (primary) | | | | | | hypertension | | | | | | Secondary | | | | | | hyperparathyroidism | | | | | | of renal origin | | | | | | ([facility]) | | + +------+--------+ + + | [...]
--- OUTSIDE RECORDS SUMMARY | ~2019-10-13 | XMS | Encounter Summary ---
Demographics + + + | Address | [address] | | | [place] [address] | + + + | Home Phone | | + + + | Preferred Language | Unknown | + + + | Marital Status | | + + + | Protestant Affiliation | 1041 | + + + | Race | Unknown | + + + | Ethnic Group | Unknown | + + + Author + + + | Author | [facility] | | | and [place] | + + + | Organization | [facility] | | | and [...] Providers + +------+ + | Care Air Carrier Maintenance Inspector Name | Role | Phone | [...] | EXCHANGE | | | | | [place], [place] | [place] [address] | | | | | [address] | [phone] | | | | | [phone] | | | +--------+ + + + [...] | | | | | | [address] [facility] | | | | | | [address] | | | | | | | [...] LVH, diastolic function abnormal, | | | [place] visually estimates LVEF 50-55%. 3. Aortic valve [...] | Mild concentric LVH, diastolic function abnormal, [place] visually | | | estimates LVEF 50-55%. [...] pressures of | | | 15-20mmHg. MEASUREMENTS Honing Machine Operator Semiautomatic: | | | Authenticated by: Derrek Barnhart DO Report Date/Time: -- | | | [id number]:16:08 | | + + + + + [...] enlargement. Mild concentric LVH, diastolic function abnormal, [place] | | visually estimates LVEF 50-55%. 3. [...] | central venous pressures of 15-20mmHg. MEASUREMENTS Honing Machine Operator Semiautomatic: | | DHAuthenticated by: Derrek Dockery Date/Time: -- [id number]:16:08 | | IMPRESSION: 1. See Dictation. A fib, paced rhythm. 2. Cor Pulmonale. Severe RV | | enlargement, systolic function preserved, septal flattening suggestive of chronic RV | | volume and pressure overload. Pacing catheter in RV. Moderate TR. IVC dilated and | | plethoric. Est systolic PAP 67-72mmHg, severe Pulmonary HTN. Severe bi-Atrial | | enlargement. Mild concentric LVH, diastolic function abnormal, [place] visually | | estimates LVEF 50-55%. 3. [...] | |MEASUREMENTS | | | | | |Honing Machine Operator Semiautomatic: | |Authenticated by: Derrek Barnhart DO | |Report Date/Time: -- [id number]:08 | | | |IMPRESSION: | |1. See Dictation. A fib, paced rhythm. 2. Cor Pulmonale. Severe RV enlargement, systolic function preserved, septal flattening suggestive of chronic RV volume and pressure overload. Pacing catheter in RV. Moderate | |TR. IVC dilated and plethoric. Est | | systolic PAP 67-72mmHg, severe Pulmonary HTN. Severe bi-Atrial enlargement. Mild concent romelia LVH, diastolic function abnormal, [place] visually estimates LVEF 50-55%. 3. Aortic valve [...]
--- OUTSIDE RECORDS SUMMARY | ~2019-10-13 | XMS | Clinical Summary ---
Demographics + + + | Address | [address] | | | [place] [address] | + + + | Home Phone | | + + + | Preferred Language | Unknown | + + + | Marital Status | | + + + | Episcopalian Affiliation | 1041 | + + + | Race | Unknown | + + + | Ethnic Group | Unknown | + + + Author + + + | Author | [facility] (Historical as of | | | 06-05-19) | + + + | Organization | [facility] (Historical as of | | | 06-05-19) [...] Team Providers + +------+ + | Care Shuttle Repairer Name | Role | Phone | [...] chronic renal failure, stage 3 (moderate) ([facility]) | 02/15/2019 | + + + | Pulmonary hypertension ([facility]) | 12/27/2018 | + + + | Right heart failure ([facility]) | 12/27/2018 | + + + | [...] GFR 30-59 ml/min ([facility]) | 10/27/2017 | + + + | [...] + | IZZY (acute kidney injury) ([facility]) | 01/07/20 | | | | 19 [...] | | SCIENTIFIC | | 2021 | /[id number] | | on 03/19/2019 by Caitlyn, | [...] +------+-------+ + | MEDICARE | MEDICA | [id number] | | | [address] | | | RE | | | | [place] [address] | | | IP-OP | | | [...] | Self | [birth year] | Home: | [address] [place] [address] ST | | | al/Fam | | 1941 | [phone] | [place] | | | lissy | | | [birth year] | [address] | + +--------+ +--------+ + +
--- OUTSIDE RECORDS SUMMARY | ~2019-10-13 | XMS | Encounter Summary ---
Demographics + + + | Address | [address] | | | [place] [address] | + + + | Home Phone | | + + + | Preferred Language | Unknown | + + + | Marital Status | | + + + | Lutheran Affiliation | 1041 | + + + [...] Team Providers + +------+ + | Care Chain Builder Name | Role | Phone | + +------+ + | Kushal Costa MD | PCP | | + +------+ + Encounter Details +--------+ + + + + | Date | Type | Department | Care Team | Description | +--------+ + + + + | 01/28/ | Orders Only | [facility] | Conversion | | | 2019 | | NEPHROLOGY [place] | Transaction, | | | | | [address] [place] | Provider Unknown | | | | | [address] [facility] [place] | | | | | | [address] | (Fax) | | | | | [phone] | | | +--------+ + + + [...] | | | | | | [address] [place] | | | | | | [address] | | | | | | | [...]
--- OUTSIDE RECORDS SUMMARY | ~2019-10-13 | XMS | Encounter Summary ---
Demographics + + + | Address | [address] | | | [place] [address] | + + + | Home Phone [...] Team Providers + +------+ + | Care Diesel Crane Operator Name | Role | Phone | [...] | | | | [place], | [place] | | | | | | [place] [address] | [address] Phone: | | | | | | Phone: | [phone] | | | | | | [phone] | Fax: | | | | | | Fax: | [phone] | | | | | | [phone] | | +--------+--------+ + + + + Encounter Details +--------+---------+ + + + | Date | Type | Department | Care Team | Description | +--------+---------+ + + + | 06/11/ | Office | [facility] | Anastasia, | Low back pain, | | 2017 | Visit | PHYSIATRY [address] | [address]I [address]quez [address] | unspecified back | | | | [place], | AAY[place], | pain laterality, | | | | [place] [address] | [place] [address] | unspecified | | | | [phone] | [phone] | chronicity, with | | | | [...] of blood sugars if you are diabetic. syrup mixer risk can lead to osteoporosis which is [...] of the procedure you must provide a company truck driver to take you home. For all procedur es it is recommended that someone else drive you home. documented in this encounter Progress Notes Christina Oconnor PA-C - 06/11/2018 8:40 AM PDTFormatting of this note might be differe nt from the original. Christina Oconnor PA-C [address], [address] [place] [address] FAX: PHYSICAL MEDICINE AND REHABILITATION H&P CHIEF [...] has no apparent deficits with short or [facility] memory. He has appropriate fund of knowledge [...] ral foraminal stenosis and central canal stenosis bijj-lb-bfihmowd at L4-L5. ASSESSMENT: 1. Low back pain, [...] any procedure. He does report seeing his demographic analyst on June 30 in which they w [...] 3 weeks after injection. ELECTRONICALLY SIGNED BY: Chrsitina Oconnor PA-C, 06/11/2018 CC: documented i n [...] | | | | | | [address] [place], [place] | | | | | | [id number] | | | | | | | [...]
--- OUTSIDE RECORDS SUMMARY | ~2019-10-13 | XMS | Encounter Summary ---
Demographics + + + | Address | [address] | | | [place] [address] | + + + | Home Phone | | + + + | Preferred Language | Unknown | + + + | Marital Status | | + + + | Protestant Affiliation | 1041 | + + + | Race | Unknown | + + + | Ethnic Group | Unknown | + + + Author + + + | Author | [facility] | | | and [place] | + + + | Organization | [facility] | | | and [...] Team Providers + +------+ + | Care Neuroscience Director Na Name | Role | Phone | + +------+ + | Kushal Costa MD | PCP | | + +------+ + Encounter Details +--------+ + + + + | Date | Type | Department | Care Team | Description | +--------+ + + + + | 11/07/ | Orders Only | [facility] | Danny Gandara MD | | | 2017 | | NEPHROLOGY [place] | [address] [place] | | | | | [address] [place] | [address] [place], [place] | | | | | 160 [place], [place] | [address] | | | | | [address] | | | | | | [phone] | | | +--------+ + + + [...] 2019 | Visit | | [address] [facility] | | | | | | [address] [facility] | | | | | | [address] | | | | | | | [...]
--- OUTSIDE RECORDS SUMMARY | ~2019-10-13 | XMS | Encounter Summary ---
Demographics + + + | Address | [address] | | | [place] [address] | + + + | Home Phone [...] Providers + +------+ + | Care Animal Physiology Teacher Name | Role | Phone | + +------+ + | Kushal Costa MD | PCP | | + +------+ + Encounter Details +--------+ + + + + | Date | Type | Department | Care Team | Description | +--------+ + + + + | 07/26/ | Documentati | [facility] | Tobias, | | | 2019 | on | NEPHROLOGY [place] | Bandar Cannon | | | | | [address] [place] | Purchasing Assistant | | | | | [address] [facility] [place] | | | | | | [address] | | | | | | [phone] | | | +--------+ + + + [...] 2019 | Visit | | [address] [facility] | | | | | | 160 [place], [place] | | | | | | [address] | | | | | | | [...]
--- OUTSIDE RECORDS SUMMARY | ~2019-10-13 | XMS | Encounter Summary ---
Demographics + + + | Address | [address] | | | [place] [address] | + + + | Home Phone [...] Team Providers + +------+ + | Care Recoil Spring Winder Name | Role | Phone | + [...] | (Primary Dx) | | | | [place], | [place], [place] | | | | | [place] [address] | [address] | | | | | [phone] | | | +--------+ + + + [...] 2019 | Visit | | [address] [facility] [facility] [place] | | | | | | 160 [place] | | | | | | [address] | | | | | | (Fax) [...]
--- OUTSIDE RECORDS SUMMARY | ~2019-10-13 | XMS | Encounter Summary ---
Demographics + + + | Address | [address] | | | [place] [address] | + + + | Home Phone [...] Team Providers + +------+ + | Care Finisher Operator Name | Role | Phone | [...] + + | 09/06/ | Telephone | [facility] | Danny Gandara MD | Other (Facility call | | 2019 | | NEPHROLOGY [place] | [address] [place] | ) | | | | [address] [place] | 160 [place], [place] | | | | | 160 [place], [place] | [address] | | | | | [address] | | | | | | [phone] | | | +--------+ + + + [...] | Visit | | [address] [facility] | | | | | | [address] [facility] | | | | | | [address] | | | | | | | [...]
--- OUTSIDE RECORDS SUMMARY | ~2019-10-13 | XMS | Encounter Summary ---
Demographics + + + | Address | [address] | | | [place] [address] | + + + | Home Phone [...] Team Providers + +------+ + | Care Logging Shovel Operator Name | Role | Phone | + +------+ + | Kushal Costa MD | PCP | | + +------+ + Encounter Details +--------+ + + + + | Date | Type | Department | Care Team | Description | +--------+ + + + + | 12/19/ | Orders Only | [facility] | Danny Gandara MD | | | 2017 | | NEPRHOLOGY [place] | [address] | | | | | [address] | 160 [place], [place] | | | | | 101 [place], [place] | [address] | | | | | [address] | | | | | | [phone] | | | +--------+ + + + [...] 2019 | Visit | | [address] [facility] | | | | | | 160 [place] | | | | | | [address] | | | | | | | [...]
--- OUTSIDE RECORDS SUMMARY | ~2019-10-13 | XMS | Encounter Summary ---
Demographics + + + | Address | [address] | | | [place] [address] | + + + | Home Phone | | + + + | Preferred Language | Unknown | + + + | Marital Status | Single | + + + | Congregational Affiliation | Unknown | + + + | Race | Unknown | + + + | Ethnic Group | Other Race | + + + Author + + + | Author | [facility] | + + + | Organization | [facility] | + + + | Address | Unknown | + + + | Phone | Unavailable | + + + Support + + +---------+ + | Name | Relationship | Address | Phone | + + +---------+ + | None None | ECON | Unknown | Unavailable | + + +---------+ + Care Team Providers + +------+ + | Care Well Service Pump Equipment Operator Name | Role | Phone | + +------+ + PCP | Unavailable | + +------+ + Encounter Details +--------+ + + + + | Date | Type | Department | Care Team | Description | +--------+ + + + + | 01/13/ | Documentati | Neurology at | Sy Goodwin, | | | 2007 | on | [facility] & | MD Angeles Fox | | | | | [address] | [place], [place] | | | | | Rj Fox Mailcode: | [address] | | | | | [facility] | [phone] | | | | | Health and Healing, | | | | | | | | | | | | [place], [place] | | | | | | [address] | | | | | | [phone] | | | +--------+ + + + [...]
--- OUTSIDE RECORDS SUMMARY | ~2019-10-13 | XMS | Encounter Summary ---
Demographics + + + | Address | [address] | | | [place] [address] | + + + | Home Phone [...] Providers + +------+ + | Care Warehouse Stock Clerk Name | Role | Phone | + +------+ + | Kushal Costa MD | PCP | | + +------+ + Encounter Details +--------+ + + + + | Date | Type | Department | Care Team | Description | +--------+ + + + + | 10/24/ | Orders Only | [facility] | Conversion | | | 2019 | | NEPHROLOGY [place] | Transaction, | | | | | [address] [place] | Provider Unknown | | | | | [address] [facility] [place] [place] | | | | | | [address] | (Fax) | | | | | [phone] | | | +--------+ + + + [...] | Visit | | [address] [facility] | | | | | | 160 [place] | | | | | | [address] | | | | | | | [...] - 1.030 | EXTERNAL | | | [place] | | | LAB | | + [...]
--- OUTSIDE RECORDS SUMMARY | ~2019-10-13 | XMS | Encounter Summary ---
Demographics + + + | Address | [address] | | | [place] [address] | + + + | Home Phone [...] Providers + +------+ + | Care Board Worker Name | Role | Phone | + +------+ + | Kushal Csota MD | PCP | | + +------+ + Encounter Details +--------+ + + + + | Date | Type | Department | Care Team | Description | +--------+ + + + + | 11/20/ | Orders Only | [facility] | Conversion | | | 2019 | | NEPRHOLOGY [place] | Transaction, | | | | | [address] | Provider Unknown | | | | | [address] [place], [place] | [phone] | | | | | [address] | | | | | | [phone] | | | +--------+ + + + [...] 2019 | Visit | | [address] [facility] | | | | | | [address] [place] | | | | | | [address] | | | | | | | [...] | | | LAB | | | CITIZ[place] | | | | | + + [...]
--- OUTSIDE RECORDS SUMMARY | ~2019-10-13 | XMS | Encounter Summary ---
Demographics + + + | Address | [address] | | | [place] [address] | + + + | Home Phone [...] Providers + +------+ + | Care News Camera Person Name | Role | Phone | + +------+ + | Kushal Costa MD | PCP | | + +------+ + Encounter Details +--------+ + + + + | Date | Type | Department | Care Team | Description | +--------+ + + + + | 05/12/ | Orders Only | [facility] | Provider, | Chronic kidney | | 2019 | | SYSTEM GENERIC OP | MD [address] | disease, stage III | | | | CONVERSION [address] | [place] [address] | (moderate) (HCC); | | | | [address] [place], [place] | [place] [address] | Hypokalemia; | | | | [address] | | Localized edema; | | | | [phone] | | Essential (primary) | | | [...] 2020 | Visit | | [address] [facility] | | | | | | 160 [place] | | | | | | [address] | | | | | | | [...] Expires: | | | | | (moderate) ([facility]) | 09/28/2019 | | | | | Hypokalemia | | | | | | Localized edema | | | | | | Essential (primary) | | | | | | hypertension Fluid | | | | | | overload Secondary | | | | | | hyperparathyroidism | | | | | | of renal origin | | | | | | ([facility]) | | + +------+--------+ + + | Basic Metabolic | Lab | Routin | Chronic kidney | Expected: | | Panel | | e | disease, stage III | 11/02/2018, Expires: | | | | | (moderate) ([facility]) | 10/26/2019 | | | | | [...] Expires: | | | | | (moderate) ([facility]) | 04/19/2020 | | | | | Essential (primary) | | | | | | hypertension | | | | | | Secondary | | | | | | hyperparathyroidism | | | | | | of renal origin | | | | | | ([facility]) | | + +------+--------+ + + | [...]
--- OUTSIDE RECORDS SUMMARY | ~2019-10-13 | XMS | Encounter Summary ---
Demographics + + + | Address | [address] | | | [place] [address] | + + + | Home Phone | | + + + | Preferred Language | Unknown | + + + | Marital Status | | + + + | Worship Affiliation | 1041 | + + + | Race | Unknown | + + + | Ethnic Group | Unknown | + + + Author + + + | Author | [facility] | | | and [place] | + + + | Organization | [facility] | | | [...] Providers + +------+ + | Care Mobile Ui Designer Name | Role | Phone | + +------+ + | Kushal Costa MD | PCP | | + +------+ + Encounter Details +--------+ + + + + | Date | Type | Department | Care Team | Description | +--------+ + + + + | 11/07/ | Orders Only | [facility] | Danny Gandara MD | | | 2017 | | NEPHROLOGY [place] | [address] [place] | | | | | [address] [place] | [address] [place], [place] | | | | | 160 [place], [place] | [address] | | | | | [address] | | | | | | [phone] | | | +--------+ + + + [...] HOSPITAL[facility]ANIEL | | | | | | [address] | | | | | | | [...]
--- OUTSIDE RECORDS SUMMARY | ~2019-10-13 | XMS | Encounter Summary ---
Demographics + + + | Address | [address] | | | [place] [address] | + + + | Home Phone [...] Team Providers + +------+ + | Care Distribution District Supervisor Name | Role | Phone | [...] | | [address] | [address] [place] | | | | | [place], [place] | [address] | | | | | [address] | | | | | | [phone] | | | +--------+ + + + [...] | | [address] [facility] | | | | | | [address] [facility] | | | | | | [address] | | | | | | | [...] 8.22 cm AR Dec | | | [place]: 1.93 m/s2 AR Dec Time: 2330.38 ms [...] | maxP.04 mmHg TR Vmax: 3.77 m/s Data Entry Manager: MIGEL | | | Authenticated by: Sparkle Brady Report Date/Time: 01-24-2017 | | | 00:37:15 | | + + + + + | Procedure Note | + + | Edgardo Piper Conversion - 06/10/2019 6:55 PM PDT Patient Name: Kel Joshi of | | : 1940 Performing Physician: Sparkle | | [facility] INDICATIONS------ | | -----Heart failure [...] cmLVIDd: 5.77 cmLVPWd: 1.18 cmLVOT Area: 3.98 [id number] Diam: 2.25 cm%FS: | | 22.85 %EF(Teich): [...] | Index (A-L): 63.36 ml/m2LAAs A2C: 31.84 [id number] A-L A2C: 132.77 mlLALs A2C: | | 6.48 cmLAAs A4C: 34.80 ls1BAFEO A-L A4C: 118.78 mlLALs A4C: 8.65 cmRAAs: 49.96 | | us8LBQOA A-L: 259.12 mlRAESV MOD: 251.38 mlRALs: 8.22 cmAR Dec [place]: 1.93 | | m/s2AR Dec Time: 2330.38 msAR maxP.34 mmHgAR PHT: 675.81 msAR Vmax: 4.50 | | m/[place]ie maxP.00 mmHgAV meanP.60 mmHgAV Vmax: 1.58 m/Davie Vmean: 0.98 m/Davie | | VTI: 29.76 cmAVA Vmax: 2.61 cm2AVA (VTI): 2.12 nv5JJOG Vmax: 0.00 cm2/m2AVAI | | (VTI): 0.00 cm2/m2LVOT maxP.35 mmHgLVOT meanP.30 mmHgLVSI Dopp: 27.56 | | ml/m2LVSV Dopp: 63.13 mlLVOT Vmax: 1.03 m/sLVOT Vmean: 0.68 m/sLVOT VTI: 15.85 | | cmMR dp/dt: 1864.01 mmHg/sMV A Roberto: 0.02 m/sMV DecT: 162.94 msMV E Roberto: 1.53 | | m/sMV E/A Ratio: 66.42MV PHT: 47.25 msMVA By PHT: 4.65 sv9Uuxljo e': 0.05 | | m/sSeptal E/e': 30.24Lateral e': 0.10 m/sLateral E/e': 14.53RAP: 20 mmHgRVSP: | | 77.04 mmHgTR maxP.04 mmHgTR Vmax: 3.77 m/s Data Entry Manager: GALLOuthenticated by: | | Sparkle Navarrochurch hillraReport Date/Time: 01-24-2017 00:37:15 IMPRESSION: 1. The left [...] | |RALs: 8.22 cm | |AR Dec [place]: 1.93 m/s2 | |AR Dec Time: 2330.38 [...] |TR Vmax: 3.77 m/s | | | |Data Entry Manager: MIGEL | |Authenticated by: Sparkle Brady | [...]
--- OUTSIDE RECORDS SUMMARY | ~2019-10-13 | XMS | Encounter Summary ---
Demographics + + + | Address | [address] | | | [place] [address] | + + + | Home Phone | | + + + | Preferred Language | Unknown | + + + | Marital Status | Single | + + + | Baptism Affiliation | Unknown | + + + [...] Team Providers + +------+ + | Care Cinema Operator Name | Role | Phone | [...] | | | Ave Mailcode: [address] | [place], [place] | | | | | [facility] | [address] | | | | | and Healing, | [phone] | | | | | [facility] | | | | | | Floor [place], [place] | | | | | | [address] | | | | | | [phone] | | | +--------+ + + + [...] 1940 Medical | | | Record Number: [id number] Date of Test: 01/13/2008 ROUTINE EEG | | | Done at [facility] The awake background is of low [...]
--- OUTSIDE RECORDS SUMMARY | ~2019-10-13 | XMS | Encounter Summary ---
Demographics + + + | Address | [address] | | | [place] [address] | + + + | Home Phone [...] Team Providers + +------+ + | Care Cnc Mechanic Name | Role | Phone | + +------+ + | Kushal Costa MD | PCP | | + +------+ + Encounter Details +--------+ + + + + | Date | Type | Department | Care Team | Description | +--------+ + + + + | 04/17/ | Orders Only | [facility] | Danny Gandara MD | | | 2018 | | NEPHROLOGY [place] | [address] [place] | | | | | [address] [place] | 160 [place], [place] | | | | | 160 [place], [place] | [address] | | | | | [address] | | | | | | [phone] | | | +--------+ + + + [...] 2020 | Visit | | [address] [facility] | | | | | | [address] [place] | | | | | | [address] | | | | | | | [...]
--- OUTSIDE RECORDS SUMMARY | ~2019-10-13 | XMS | Encounter Summary ---
Demographics + + + | Address | [address] | | | [place] [address] | + + + | Home Phone | | + + + | Preferred Language | Unknown | + + + | Marital Status | | + + + | Zoroastrianism Affiliation | 1041 | + + + | Race | Unknown | + + + | Ethnic Group | Unknown | + + + Author + + + | Author | [facility] | | | and [place] | + + + | Organization | [facility] | | | [...] Team Providers + +------+ + | Care Orthotist Prosthetist Name | Role | Phone | + +------+ + | Kushal Costa MD | PCP | | + +------+ + Encounter Details +--------+ + + + + | Date | Type | Department | Care Team | Description | +--------+ + + + + | 10/27/ | Orders Only | [facility] | Danny Gandara MD | | | 2017 | | NEPRHOLOGY [place] | [address] | | | | | [address] | 160 [place], [place] | | | | | 101 [place], [place] | [address] | | | | | [address] | | | | | | [phone] | | | +--------+ + + + [...] | | | | | | [address] [place] | | | | | | [address] | | | | | | | [...]
--- OUTSIDE RECORDS SUMMARY | ~2019-10-13 | XMS | Encounter Summary ---
Demographics + + + | Address | [address] | | | [place] [address] | + + + | Home Phone [...] | + + +---------+ + | Allegra oJshi | ECON | Unknown | | + + +---------+ + | Carol Garcia | ECON | Unknown | | + + +---------+ + Care Team Providers + +------+ + | Care Clip Coater Name | Role | Phone | + +------+ + | Ksuhal Costa MD | PCP | | + [...] [address] | | | | | [place] [address], | [place], [place] | | | | | [place] [address] | [address] | | | | | [phone] | | | +--------+ + + + [...] Visit | | [address] [facility] | | | | | | [address] [place] | | | | | | [address] | | | | | | | [...]
[~2019-10-13 14:11] MED LIST changes: +DOK PLUS TABLE1 EACH PO; +METOLAZONE2.5 MG PO; +POTASSIUM CHLO10 ME1 PO; +VITAMIN D31000 UNIT PO
--- OUTSIDE RECORDS SUMMARY | 2019-10-13 14:14 | XMS ---
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 Care History Medical/Surgical 10/11/2019 [facility] Patient was advised by Dr. Costa to go straight to ED.\T\nbsp; Patient\T\ nbsp; has follow up with Dr. Costa on 11/05/2019. 10/07/2018 [facility] - PATIENT IS CURRENTLY RECEIVING HOME HEALTH SERVICES THRU [facility]. PLEASE CONTACT [facility] AT [phone] WHEN PATIENT IS SEEN IN THE ED. 09/16/2018 [facility] - Patient is currently established with [facility]. If patient is seen in the ED during business hours. Please contact CHWs at [facility]. Care Recommendation: This patient has had 5 [...] care. [facility].D[facility] V[facility] COUNT ([address] [facility] TOTAL 8 NOTE: Visits indicate total known visits. 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 - Hypokalemia - Hypotension, unspecified - Allergy status to oth drug/meds/biol subst status - Hypokalemia - Unspecified atrial fibrillation - Hypotension, unspecified - Presence of cardiac pacemaker - Heart failure, unspecified 08/24/2019 11:14 [facility] [place] TYPE: Emergency COMPLAINT: - SOB 03/18/2019 15:32 [facility] TYPE: Emergency DIAGNOSES: - Syncope 03/17/2019 18:31 [facility] TYPE: Emergency COMPLAINT: - FALL, INJURY 01/14/2019 17:07 [facility] TYPE: Emergency COMPLAINT: - RECTAL BLEEDING DIAGNOSES: - Heart failure, unspecified - Other hemorrhoids - correction (current) use of aspirin - Allergy status to oth drug/meds/biol subst status - Presence of cardiac pacemaker - Hemorrhage of anus and rectum - Residual hemorrhoidal skin tags - Unspecified atrial fibrillation 12/26/2018 18:44 [facility] TYPE: Emergency COMPLAINT: - VOMITTITNG DIAGNOSES: - Other specified abnormal findings of blood chemistry - 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 - Allergy status to oth drug/meds/biol subst status - Heart failure, unspecified - Presence of cardiac pacemaker - correction (current) use of aspirin - Unspecified atrial fibrillation - Weakness 12/08/2018 10:38 [facility] TYPE: Emergency COMPLAINT: - R LEG PAIN,NON INJURY DIAGNOSES: - Heart failure, unspecified - 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 - 1 Chronic kidney disease, stage 3 (moderate) - correction (current) use of aspirin - 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 - Patient's other noncompliance with medication regimen - 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 - Restless legs syndrome - Obstructive sleep apnea (adult) (pediatric) - 1 Chronic kidney disease, stage 3 (moderate) - Hyperlipidemia, unspecified - 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 - Varicose veins of left lower extremity with ulcer of calf - 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 - Acute and chronic respiratory failure with hypoxia - Restless legs syndrome - 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 - Lymphedema, not elsewhere classified - Lymphedema, not elsewhere classified - Varicose veins of left lower extremity with ulcer of calf - 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 - Acute on chronic diastolic (congestive) heart failure - Urgency of urination - terminal press operator (current) use of aspirin - Non-prs chronic ulcer of right calf limited to brkdwn skin - Unspecified atrial fibrillation - Other retirement (current) drug therapy - Acute on chronic diastolic (congestive) heart failure - Unspecified mood [affective] disorder [facility] DIAGNOSES: - Syncope - [...] cardiac pacemaker - Heart failure, unspecified - correction (current) use of aspirin - Syncope and collapse - 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
== END 2019-10-13 15:42 | disposition home or self-care (01) ==
LOC: ED 14:11
DX: L89.329 Pressure ulcer of left buttock, unspecified stage (principal); L89.319 Pressure ulcer of right buttock, unspecified stage; I50.9 Heart failure, unspecified; I48.91 Unspecified atrial fibrillation; Z88.8 Allergy status to other drugs, medicaments and biological substances; Z79.899 Other long term (current) drug therapy; Z79.82 Long term (current) use of aspirin
CPT/HCPCS: 99283

== ENCOUNTER 2019-10-20 16:36 | Emergency (ER) | payer MEDICARE ==
[~2019-10-20] VITALS: Ht 167.6 cm; Wt 99.8 kg
--- OUTSIDE RECORDS SUMMARY | ~2019-10-20 | XMS | Encounter Summary ---
Demographics + + + | Address | [address] | | | [place] [address] | + + + | Home Phone | | + + + | Preferred Language | Unknown | + + + | Marital Status | | + + + | Latter-Day Affiliation | 1041 | + + + | Race | Unknown | + + + | Ethnic Group | Unknown | + + + Author + + + | Author | [facility]erg[facility] | | | and [place] | + + + | Organization | [facility]erged With [facility] | | | [...] Team Providers + +------+ + | Care Vp Client Services Name | Role | Phone | + +------+ + | Kushal Costa MD | PCP | | + +------+ + Encounter Details +--------+ + + + + | Date | Type | Department | Care Team | Description | +--------+ + + + + | 05/12/ | Orders Only | [facility] | Provider, | Chronic kidney | | 2019 | | [facility] GENER[facility] OP | MD [address] | disease, stage III | | | | CONVERSION [address] | [place] [address] | (moderate) (HCC); | | | | [address] [place], [place] | [place] [address] | Hypokalemia; | | | | [address] | | Localized edema; | | | | [phone] | | Essential (primary) | | | | | | hypertension; Fluid | | | | | | overload; Secondary | | | | | | hyperparathyroidism | | | | | | of renal origin | | | | | | (HCC); Other | | | | | | specified personal | | | | | | risk factors, not | | | | | | elsewhere classified | +--------+ + + + + Social [...] + +---------+ + | Alcohol Use | Drinks/Week | oz/Week | Comments | + + +---------+ + | No | | | Alcoholic | | | | | Drinks/day: rare | + + +---------+ + [...] | Danny Gandara MD | | | 2020 | Visit | | [address] [facility] | | | | | | [address] [place] | | | | | | [address] | | | | | | | | +--------+ + + + + | 01/09/ | Procedure | Cardiology | | | | 2019 | visit | | | | +--------+ + + + + | 04/10/ | Procedure | Cardiology | | | | 2019 | visit | | | | +--------+ + + + + + +------+--------+ + + | Name | Type | Priori | Associated Diagnoses | Order Schedule | | | | ty | | | + +------+--------+ + + | Basic Metabolic | Lab | Routin | Chronic kidney | Expected: | | Panel | | e | disease, stage III | 10/05/2018, Expires: | | | | | (moderate) ([facility]) | 09/28/2019 | | | | | Hypokalemia | | | | | | Localized edema | | | | | | Essential (primary) | | | | | | hypertension Fluid | | | | | | overload Secondary | | | | | | hyperparathyroidism | | | | | | of renal origin | | | | | | ([facility]) | | + +------+--------+ + + | Basic Metabolic | Lab | Routin | Chronic kidney | Expected: | | Panel | | e | disease, stage III | 11/02/2018, Expires: | | | | | (moderate) ([facility]) | 10/26/2019 | | | | | Other specified | | | | | | personal risk | | | | | | factors, not | | | | | | elsewhere classified | | | | | | Essential | | | | | | (primary) | | | | | | hypertension | | + +------+--------+ + + | Basic Metabolic | Lab | Routin | Chronic kidney | Expected: | | Panel | | e | disease, stage III | 05/03/2019, Expires: | | | | | (moderate) ([facility]) | 04/19/2020 | | | | | Essential (primary) | | | | | | hypertension | | | | | | Secondary | | | | | | hyperparathyroidism | | | | | | of renal origin | | | | | | ([facility]) | | + +------+--------+ + + | Renal Function Panel | Lab | Routin | Chronic kidney | Expected: | | | | e | disease, stage III | 06/20/2019, Expires: | | | | | (moderate) (HCC) | 04/19/2020 | | | | | Essential (primary) | | | | | | hypertension | | | | | | Secondary | | | | | | hyperparathyroidism | | | | | | of renal origin | | | | | | (HCC) | | + +------+--------+ + + | Magnesium | Lab | Routin | Chronic kidney | Expected: | | | | e | disease, stage III | 06/20/2019, Expires: | | | | | (moderate) (HCC) | 04/19/2020 | | | | | Essential (primary) | | | | | | hypertension | | | | | | Secondary | | | | | | hyperparathyroidism | | | | | | of renal origin | | | | | | (HCC) | | + +------+--------+ + + | CBC with | Lab | Routin | Chronic kidney | Expected: | | Differential | | e | disease, stage III | 06/20/2019, Expires: | | | | | (moderate) (HCC) | 04/19/2020 | | | | | Essential (primary) | | | | | | hypertension | | | | | | Secondary | | | | | | hyperparathyroidism | | | | | | of renal origin | | | | | | (HCC) | | + +------+--------+ + + | Uric Acid | Lab | Routin | Chronic kidney | Expected: | | | | e | disease, stage III | 06/20/2019, Expires: | | | | | (moderate) (HCC) | 04/19/2020 | | | | | Essential (primary) | | | | | | hypertension | | | | | | Secondary | | | | | | hyperparathyroidism | | | | | | of renal origin | | | | | | (HCC) | | + +------+--------+ + + | Parathyroid Hormone, | Lab | Routin | Chronic kidney | Expected: | | Intact | | e | disease, stage III | 06/20/2019, Expires: | | | | | (moderate) (HCC) | 04/19/2020 | | | | | Essential (primary) | | | | | | hypertension | | | | | | Secondary | | | | | | hyperparathyroidism | | | | | | of renal origin | | | | | | (HCC) | | + +------+--------+ + + documented as of this encounter Visit Diagnoses + + | Diagnosis | + + | Chronic kidney disease, stage III (moderate) (HCC) Chronic kidney disease, Stage III | | (moderate) | + + | Hypokalemia Hypopotassemia | + + | Localized edema Edema | + + | Essential (primary) hypertension Unspecified essential hypertension | + + | Fluid overload Other fluid overload | + + | Secondary hyperparathyroidism of renal origin (HCC) Secondary hyperparathyroidism (of | | renal origin) | + + | Other specified personal risk factors, not elsewhere classified | + + documented in this encounter"
--- OUTSIDE RECORDS SUMMARY | ~2019-10-20 | XMS | Encounter Summary ---
Demographics + + + | Address | [address] | | | [place] [address] | + + + | Home Phone | | + + + | Preferred Language | Unknown | + + + | Marital Status | | + + + | Christianity Affiliation | 1041 | + + + | Race | Unknown | + + + | Ethnic Group | Unknown | + + + Author + + + | Author | [facility] | | | and [place] | + + + | Organization | [facility] | | | [...] Team Providers + +------+ + | Care Religious Education Coordinator Name | Role | Phone | + +------+ + | Kushal Costa MD | PCP | | + +------+ + Encounter Details +--------+ + + + + | Date | Type | Department | Care Team | Description | +--------+ + + + + | 10/24/ | Orders Only | [facility] | Conversion | | | 2019 | | NEPHROLOGY [place] | Transaction, | | | | | [address] [place] | Provider Unknown | | | | | [address] [facility] [place] | | | | | | [address] | (Fax) | | | | | [phone] | | | +--------+ + + + [...] 2019 | Visit | | [address] [facility] | | | | | | [address] [place] | | | | | | [address] | | | | | | | [...] | + +--------+ + + + | URINALYSIS, | Routin | 10/24/2018 | | Results for this | | MICROSCOPIC ONLY | e | 12:00 AM | | procedure are in the | | | | PST | | results section. | + +--------+ + + + | PROTEIN/CREATININE | Routin | 10/24/2018 | | Results for this | | RATIO, URINE | e | 12:00 AM | | procedure are in the | | | | PST | | results section. | + +--------+ + + + documented in this encounter Results Protein/Creatinine Ratio, Urine (10/24/2018 12:00 AM PST) + +-------+ + + + | Component | Value | Ref Range | Performed | Pathologist | | | | | At | Signature | + +-------+ + + + | Protein/Cre | 136.1 | 0 - 150 | EXTERNAL | | | at Ratio | | | LAB | | + +-------+ + + + + + | Specimen | + + | Urine specimen | | (specimen) | + + + +---------+ + + | Performing | Address | City/State/Zipcode | Phone Number | | Organization | | | | + +---------+ + + | EXTERNAL LAB | | | | + +---------+ + + Urinalysis, Microscopic Only (10/24/2018 12:00 AM PST) + + + + + + | Component | Value | Ref Range | Performed | Pathologist | | | | | At | Signature | + + + + + + | Color | Yellow | | EXTERNAL | | | | | | LAB | | + + + + + + | Clarity | Clear | | EXTERNAL | | | | | | LAB | | + + + + + + | Specific | 1.015 | 1.005 - 1.030 | EXTERNAL | | | [place] | | | LAB | | + + + + + + | Leukocyte | Negative | | EXTERNAL | | | Esterase, | | | LAB | | | Urine | | | | | + + + + + + | Nitrite, | Negative | | EXTERNAL | | | Urine | | | LAB | | + + + + + + | Urobilinoge | Normal | | EXTERNAL | | | n, Urine | | | LAB | | + + + + + + | Protein, | Negative | | EXTERNAL | | | Urine | | | LAB | | + + + + + + | pH, Urine | 5 | 5 - 9 | EXTERNAL | | | | | | LAB | | + + + + + + | Blood, | Negative | | EXTERNAL | | | Urine | | | LAB | | + + + + + + | Ketones | Negative | | EXTERNAL | | | | | | LAB | | + + + + + + | Bilirubin, | Negative | | EXTERNAL | | | Urine | | | LAB | | + + + + + + | Glucose, | Negative | | EXTERNAL | | | Urine | | | LAB | | + + + + + + + + | Specimen | + + | Urine specimen | | (specimen) | + + + +---------+ + + | Performing | Address | City/State/Zipcode | Phone Number | | Organization | | | | + +---------+ + + | EXTERNAL LAB | | | | + +---------+ + + documented in this encounter Visit Diagnoses Not on filedocumented in this encounter"
--- OUTSIDE RECORDS SUMMARY | ~2019-10-20 | XMS | Encounter Summary ---
Demographics + + + | Address | [address] | | | [place] [address] | + + + | Home Phone | | + + + | Preferred Language | Unknown | + + + | Marital Status | | + + + | Anabaptist Affiliation | [id number] | + + + | Race | Unknown | + + + | Ethnic Group | Unknown | + + + Author + + + | Author | [facility] | | | and [place] | + + + | Organization | [facility] | | | and [...] Team Providers + +------+ + | Care Photographic Technician Name | Role | Phone | + +------+ + | Kushal Costa MD | PCP | | + +------+ + Reason for Visit + + + | Reason | Comments | + + + | Back Pain | | + + + Evaluate & Treat (Routine) +--------+--------+ + + + + | Status | Reason | Specialty | Diagnoses / | Referred By | Referred To | | | | | Procedures | Contact | Contact | +--------+--------+ + + + + | Closed | | Physical | Diagnoses | Igor, | Roxy, | | | | Medicine and | Low back | Kushal Peacock, | Chris Storm MD | | | | Rehabilitatio | pain | MD [address] | [address] | | | | n | | [address] | [address] [place] | | | | | | [place], | [place] | | | | | | [place] [address] | [address] Phone: | | | | | | Phone: | [phone] | | | | | | [phone] | Fax: | | | | | | Fax: | [phone] | | | | | | [phone] | | +--------+--------+ + + + + Encounter Details +--------+---------+ + + + | Date | Type | Department | Care Team | Description | +--------+---------+ + + + | 06/11/ | Office | [facility] | Anastasia, | Low back pain, | | 2017 | Visit | PHYSIATRY [address] | KOKI Vasquez [address] | unspecified back | | | | [place], | [place]ICARDO, | pain laterality, | | | | [place] [address] | [place] [id number] | unspecified | | | | [phone] | [phone] | chronicity, with | | | | | | sciatica presence | | | | | | unspecified; DDD | | | | | | (degenerative disc | | | | | | disease), lumbar; | | | | | | Lumbar | | | | | | radiculopathy; | | | | | | Spinal stenosis at | | | | | | L4-L5 level | +--------+---------+ + + + Social History [...] Filed Vital Signs + + + + + | Vital Sign | Reading | Time Taken | Comments | + + + + + | Blood Pressure | 141/90 | 06/11/2018 8:41 AM | | | | | PDT | | + + + + + | Pulse | 86 | 06/11/2018 8:41 AM | | | | | PDT | | + + + + + | Temperature | - | - | | + + + + + | Respiratory Rate | - | - | | + + + + + | Oxygen Saturation | - | - | | + + + + + | Inhaled Oxygen | - | - | | | Concentration | | | | + + + + + | Weight | 118.8 kg (262 lb) | 06/11/2018 8:41 AM | | | | | PDT | | + + + + + | Height | 167.6 cm (5' 6") | 06/11/2018 8:41 AM | | | | | PDT | | + + + + + | Body Mass Index | 42.29 | 06/11/2018 8:41 AM | | | | | PDT | | + + + + + documented in this encounter Patient Instructions Patient Instructions Christina Oconnor PA-C - 06/11/2018 8:40 AM PDT1) Epidural injecti on with Dr. Ramsey, will have to be on Plavix for 1 week Spinal Stenosis: Stenosis refers to the narrowing of the spinal cord. This most often occurs with age and generative changes of the spine. Narrowing of the spinal cord causes compression and inflam mation of nerves in the lower back and can cause numbness, pain, and weakness in the back, b uttocks and legs. You may notice you have more pain with standing and walking. It feels be tter to walk more bent over at the waist, while pushing a grocery cart or walker. You get r elief with sitting down. Treatment includes pain medicine, gabapentin, transforaminal epidu ral steroid injections to help reduce swelling, physical therapy and surgery. Steroids are a very strong anti-inflammatory, this helps reduce pain by reducing swelling. Complications of steroids are bleeding, infection, and an increase of blood sugars if you are diabetic. exterminator helper risk can lead to osteoporosis which is why we limited the number of injections to 3 times per year. Epidural injections target the spinal stenosis by putting the steroid around the nerves that come out of the spine with hopes the steroid gets into t he region of the stenosis. The procedure is about 20 minutes long. You will lie on your sneha k while x-rays are taken. Once the region is marked, it is numbed and then injected with st eroids. Follow-up at the hospital thirty minutes before your scheduled procedure to allow for time to check in. You may eat and drink as usual on the day of the procedure. If you are scheduled for an epidural injection do not take any blood thinning medications f or at least 5-7 days prior to your procedure unless you have been instructed by another phys ician not to discontinue blood thinning medications. If you are having a procedure other than an epidural injection (i.e. facet injection, media l branch block, SI joint injection or other joint injection) it is not absolutely necessary to discontinue blood thinning medications but doing so will decrease the risk of bruising or bleeding. If you have had a prior stroke, DVT or PE or if you are taking blood thinning medication be cause you have atrial fibrillation, a prosthetic cardiac valve replacement or heart stenting do not stop taking your blood thinning medications unless you have permission from your car diologist or primary care provider. All other medications should be taken as usual on the day of the procedure. Common blood thinning medications include: Aspirin (a baby aspirin is o.k.) Ibuprofen (Advil or Motrin) Naproxen (Aleve) Nabumetone (Relafen) Clopidogrel (Plavix) Dipyridamole/ASA (Aggrenox) Warfarin (Coumadin) Dabigatran (Pradaxa) Rivaroxaban (Xarelto) There are many others. If you have questions about your medications and whether or not you should stop any medications please contact our office. If you are having an epidural injection or if you take any medication for relaxation/sedati on on the day of the procedure you must provide a minibus driver to take you home. For all procedur es it is recommended that someone else drive you home. documented in this encounter Progress Notes Christina Oconnor PA-C - 06/11/2018 8:40 AM PDTFormatting of this note might be differe nt from the original. Christina Oconnor PA-C [address] [facility], [address] [place] [address] FAX: PHYSICAL MEDICINE AND REHABILITATION H&P CHIEF COMPLAINT: Chief Complaint Patient presents with Back Pain HISTORY OF PRESENT ILLNESS: The patient is a 77 y.o. male being seen today for complaints of low back pain for the last fourteen years. His symptoms have gradually worsened. He is unable to walk long distances without having to sit down. Michael Joshi states most of his pain is located in the small of his back. Since the symptoms began, he has noticed that symptoms have been constant. He describes the pain as a aching, sharp and throbbing feeling. He rates the pain as moderate. His symptoms worsen with walking, bending, and twisting. His symptoms improve with rest and changing pos itions. The patient also describes leg symptoms that occur on his and right side. The leg symptoms account for greater than or equal to 25% of his symptoms. The leg symptoms are constant an d the symptoms travels from the low back. The patient does not describe numbness of the lower extremities. He does report weakness of the right leg. He does have bowel and bladder dysfunction. He does not have saddle ane sthesia. Treatments for these complaints have included physical therapy and currently taking tylenol for pain. Michael Joshi reports attending physical therapy currently in [place], use o f hydrocodone. Patient's medications, allergies, past medical, surgical, social and family histories were reviewed and updated as appropriate. PAST MEDICAL HISTORY: Past Medical History: Diagnosis Date Acute back pain Atrial fibrillation (HCC) Benign prostatic hyperplasia with lower urinary tract symptoms BPH (benign prostatic hyperplasia) Cardiomyopathy, unspecified (HCC) CHF (congestive heart failure) (HCC) Chronic renal insufficiency DDD (degenerative disc disease), lumbar Edema, unspecified type Essential (primary) hypertension Generalized osteoarthritis Heart failure, unspecified (HCC) Hesitancy of micturition Hyperlipidemia Impaired fasting glucose Low back pain, unspecified back pain laterality, unspecified chronicity, with sciatica presence unspecified Lumbar radiculopathy 06/11/2018 Mixed dyslipidemia Morbid obesity (HCC) Nonalcoholic fatty liver disease Orthostatic hypotension NEETU (obstructive sleep apnea) Pacemaker Peripheral vascular disease (HCC) Poor urinary stream Sick sinus syndrome (HCC) Sleep apnea, unspecified type Stage 4 chronic kidney disease (HCC) Stage III chronic kidney disease Urinary incontinence Vasovagal syncope PAST SURGICAL HISTORY: Past Surgical History: Procedure Laterality Date CARDIAC PACEMAKER PLACEMENT 10/2006 HYDROCELE REPAIR KNEE SURGERY Right Medial collateral ligament repair, orthoscopic POLYPECTOMY 2009 Colon PROSTATE SURGERY TONSILLECTOMY AND ADENOIDECTOMY TURP 2005 CURRENT MEDICATIONS: Current Outpatient Prescriptions Medication Sig Dispense Refill allopurinol (ZYLOPRIM) 100 mg tablet Take 100 mg by mouth Daily. amLODIPine (NORVASC) 5 mg tablet Take 5 mg by mouth Daily. aspirin 81 mg EC tablet Take 81 mg by mouth Daily. Bioflavonoid Products (VITAMIN C) CHEW Take by mouth. cholecalciferol (VITAMIN D-3) 1,000 units tablet Take 1,000 Units by mouth Daily. HYDROcodone-acetaminophen (NORCO) 7.5-325 mg per tablet Take 1 tablet by mouth every 6 hours as needed. metOLazone (ZAROXOLYN) 5 MG tablet 1 tablet Orally one hour before torsemide metoprolol tartrate (LOPRESSOR) 50 mg tablet Take 50 mg by mouth 2 times daily. mometasone (ELOCON) 0.1 % cream Apply 1 Application topically Daily. PARoxetine (PAXIL) 20 mg tablet Take 20 mg by mouth Daily. simvastatin (ZOCOR) 20 mg tablet Take 20 mg by mouth Daily. terazosin (HYTRIN) 1 mg capsule Take 1 mg by mouth Daily. No current facility-administered medications for this visit. ALLERGIES: Allergies Allergen Reactions Lisinopril Rash Iodinated Diagnostic Agents Rash and Other (See Comments) "CT Scan dye" SOCIAL HISTORY: The patient reports that he has never smoked. He has never used smokeless tobacco. He repo rts that he does not drink alcohol or use drugs. FAMILY HISTORY: Family History Problem Relation Age of Onset Adopted: Yes No Known Problems Daughter REVIEW OF SYSTEMS: GENERALLY: No fever, chills, no night sweats, no weight gain, no weight loss, no anemia, no fatigue. EYES: No eye problems, no impaired sight, +eye glasses/contacts, no eye injury, no double vision, no transient blindness. EARS, NOSE, THROAT and MOUTH: No change in sense taste/smell, +hearing difficulty, +ringin g in ears, no drainage from ears, no ear injury, no dizziness, no voice change, no difficult y swallowing, no snoring, +sleep apnea/CPAP, no sinus trouble, no dental work. NEUROMUSCULAR: +numbness/pain of arms, +numbness/pain of legs, no awake with numbness/pain , no weakness, no muscle aching, no coordination difficulty, no change in walk, no head inju ry, no neck injury, no back injury, no pain in neck, +pain in back, no stroke, no fainting s pells, no loss of consciousness, no tremor/shaking, no seizures, no headaches, no migraines, no memory loss, no speech difficulty, no confusion, no numbness of face. PSYCHIATRIC: No depression, no difficulty sleeping, no anxiety, no bipolar disorder. CARDIOVASCULAR/PULMONARY: No heart attack, no heart murmur, no fluttering heart, no shortn ess of breath, no cough, no Tuberculosis, no chest pain, no swelling ankles, no bloody cough ing, no asthma, no COPD/emphysema. GASTROINTESTINAL: No bowel disease, no nausea/vomiting, no rectal bleeding/hemorroids, no constipation, no fecal/stool incontinence, no liver/gallbladder disease, no abdominal pain. KIDNEY DISEASE: No frequent urination, no painful/difficult with urination, no urinary inco ntinence, no bladder problems, no impotence, no irregular period, no vaginal discharge. ENDOCRINE: No diabetes, no thyroid disease, no osteoporosis/osteopenia, no drainage from br easts. INTEGUMENTARY/SKIN: No lump in breasts, no skin disease or skin changes, no rash/itch. HEMATOLOGIC: No enlarged lymph nodes, no ease or unusual bleeding, no cancer. RHEUMATOLOGIC: No joint pain/arthritis, no Rheumatoid Arthritis PHYSICAL EXAMINATION: Vitals: 06/11/18 0841 BP: 141/90 Pulse: 86 PainSc: 3 PainLoc: Back Body mass index is 42.29 kg/m. GENERAL: The patient is well developed and well nourished. He does appear uncomfortable wh en seated. HEENT: HEAD/FACE: EYES: EARS: NASOPHARNYX: OROPHARNYX: Normocephalic and atraumatic. There are no areas of recent trauma. Normal sclerae without icterus. No drainage or tenderness. Clear without drainage. Clear without erythema. SKIN Limited skin exam shows no significant rashes or lesions. There are not scars in the lumbar region. CHEST: The patient is in no acute respiratory distress with unlabored respirations. HEART: There is not lower extremity edema. ABDOMEN: The patient is overweight. NEUROLOGIC: The patient is awake, alert, and oriented to time, place, person. He follows simple and complex commands. His speech is fluent. He comprehends speech well. He has no apparent deficits with short or skilled nursing memory. He has appropriate fund of knowledge Cranial nerves 2-12 appear grossly intact. Sensory exam does not show diminished sensation to light touch in the lower extremities. REFLEX: RIGHT LEFT PATELLAR 0 0 ACHILLES 0 0 MUSCULOSKELETAL There is no tenderness in the midline of the cervical or thoracic spine. T here is no major palpable deformity of the spine. Straight leg raise and slump-sit are positive on the right. Willie's maneuver and impinge ment testing were negative for any groin pain. There was no tenderness to palpation over t he greater trochanters or sacral sulci. The patient localized the majority of the pain to t he L4/L5, L5/S1 region. Lumbar facet loading was positive. Strength testing showed 5/5 str ength throughout the lower extremities. The patient was able to heel and toe walk without d ifficulty. There was no redness, effusion, warmth or joint line tenderness in the knees or ankles. RADIOGRAPHIC REVIEW: The patient's imaging was reviewed in detail with the patient today during the visit. Lumba r Xray from 2018 shows degenerative disc disease with disc space narrowing at almost all lev els plus vacuum phenomenon. Lumbar CT scan from 2008 shows degenerative disc disease bilate ral foraminal stenosis and central canal stenosis [id number] at L4-L5. ASSESSMENT: 1. Low back pain, unspecified back pain laterality, unspecified chronicity, with sciatica p resence unspecified 2. DDD (degenerative disc disease), lumbar 3. Lumbar radiculopathy 4. Spinal stenosis at L4-L5 level PLAN: 1. Patient is currently enrolled in physical therapy. 2. He is on Plavix due to pacemaker, plus he had stage three kidney disease. His symptoms most correlate with spinal stenosis, neurogenic claudication, most likely at L4/L5, plus he has severe facet arthritis/hypertrophy. Patient will have to be cleared by his cardiologis t for any procedure. He does report seeing his workers compensation claims specialist on June 30 in which they w ill DC the Plavix. I have offered the patient bilateral L5-S1 TF BENITEZ hopefully targeting th e foraminal stenosis and central canal stenosis at L4-L5. If the injection fails to give hi m any relief then a CT scan without contrast will have to be done. 3. Medications have been reviewed at today's visit with no changes made at this time. 4. Follow up 3 weeks after injection. ELECTRONICALLY SIGNED BY: Christina Oconnor PA-C, 06/11/2018 CC: documented i n this encounter Plan of Treatment +--------+ + + + + | Date | Type | Specialty | Care Team | Description | +--------+ + + + + | 11/29/ | Office | Nephrology | Danny Gandara MD | | | 2019 | Visit | | [address] [facility] | | | | | | [address] [place], [place] | | | | | | [id number] | | | | | | | | +--------+ + + + + | 01/09/ | Procedure | Cardiology | | | | 2019 | visit | | | | +--------+ + + + + | 04/10/ | Procedure | Cardiology | | | | 2019 | visit | | | | +--------+ + + + + documented as of this encounter Results FL BENITEZ Lumbar Transforaminal [...]
--- OUTSIDE RECORDS SUMMARY | ~2019-10-20 | XMS | Encounter Summary ---
Demographics + + + | Address | [address] | | | [place] [address] | + + + | Home Phone | | + + + | Preferred Language | Unknown | + + + | Marital Status | | + + + | Confucianist Affiliation | 1041 | + + + | Race | Unknown | + + + | Ethnic Group | Unknown | + + + Author + + + | Author | [facility] | | | and [place] | + + + | Organization | [facility] | | [...] Team Providers + +------+ + | Care Child & Adolescent Psychiatrist Name | Role | Phone | + +------+ + | Kushal Costa MD | PCP | | + +------+ + Encounter Details +--------+ + + + + | Date | Type | Department | Care Team | Description | +--------+ + + + + | 07/26/ | Orders Only | [facility] | Danny Gandara MD | CKD (chronic kidney | | 2019 | | NEPHROLOGY [place] | [address] [place] | disease), stage IV | | | | [address] [place] | [address] [place], [place] | (HCC) (Primary Dx) | | | | [address] [place], [place] | [address] | | | | | [address] | | | | | | [phone] | | | +--------+ + + + [...] 2020 | Visit | | [address] [facility] | | | | | | [address] [place], [place] | | | | | | [address] | | | | | | | [...] Basic Metabolic | Lab | Routin | CKD (chronic | Expected: | | Panel | | e | kidney disease), | 09/25/2019, Expires: | | | | | stage IV (HCC) | 07/26/2020 | + +------+--------+ + + | Renal Function Panel | Lab | Routin | CKD (chronic | Expected: | | | | e | kidney disease), | 10/26/2019, Expires: | | | | | stage IV (HCC) | 07/26/2020 | + +------+--------+ + + | Magnesium | Lab | Routin | CKD (chronic | Expected: | | | | e | kidney disease), | 10/26/2019, Expires: | | | | | stage IV (HCC) | 07/26/2020 | + +------+--------+ + + | CBC with | Lab | Routin | CKD (chronic | Expected: | | Differential | | e | kidney disease), | 10/26/2019, Expires: | | | | | stage IV (HCC) | 07/26/2020 | + +------+--------+ + + | Uric Acid | Lab | Routin | CKD (chronic | Expected: | | | | e | kidney disease), | 10/26/2019, Expires: | | | | | stage IV (HCC) | 07/26/2020 | + +------+--------+ + + | Parathyroid Hormone, | Lab | Routin | CKD (chronic | Expected: | | Intact | | e | kidney disease), | 10/26/2019, Expires: | | | | | stage IV (HCC) | 07/26/2020 | + +------+--------+ + + documented as of this encounter Visit Diagnoses + + | Diagnosis | + + | CKD (chronic kidney disease), stage IV (HCC) - Primary Chronic kidney disease, Stage | | IV (severe) | + + documented in this encounter"
--- OUTSIDE RECORDS SUMMARY | ~2019-10-20 | XMS | Encounter Summary ---
Demographics + + + | Address | [address] | | | [place] [address] | + + + | Home Phone | | + + + | Preferred Language | Unknown | + + + | Marital Status | | + + + | Christian Affiliation | 1041 | + + + [...] Team Providers + +------+ + | Care Sap Architect Name | Role | Phone | + +------+ + | Kushal Costa MD | PCP | | + +------+ + Encounter Details +--------+ + + + + | Date | Type | Department | Care Team | Description | +--------+ + + + + | 10/21/ | Orders Only | [facility] | Conversion | | | 2018 | | NEPHROLOGY [place] | Transaction, | | | | | [address] | Provider Unknown | | | | | [address] [facility] [place] | | | | | | [address] | (Fax) | | | | | [phone] | | | +--------+ + + + [...] 2019 | Visit | | [address] [facility] | | | | | | [address] [facility] | | | | | | [address] | | | | | | | [...] +--------+ + + + | EXTERNAL LAB: CBC | Routin | 10/21/2017 | | Results for this | | | e | 2:44 PM | | procedure are in the | | | | PST | | results section. | + +--------+ + + + | LIPID PANEL | Routin | 10/21/2017 | | Results for this | | | e | 2:44 PM | | procedure are in the | | | | PST | | results section. | + +--------+ + + + | TSH | Routin | 10/21/2017 | | Results for this | | | e | 2:44 PM | | procedure are in the | | | | PST | | results section. | + +--------+ + + + | PHOSPHORUS | Routin | 10/21/2017 | | Results for this | | | e | 2:44 PM | | procedure are in the | | | | PST | | results section. | + +--------+ + + + | MAGNESIUM | Routin | 10/21/2017 | | Results for this | | | e | 2:44 PM | | procedure are in the | | | | PST | | results section. | + +--------+ + + + | COMPREHENSIVE | Routin | 10/21/2017 | | Results for this | | METABOLIC PANEL | e | 2:44 PM | | procedure are in the | | | | PST | | results section. | + +--------+ + + + documented in this encounter Results External Lab: [facility] (10/21/2017 2:44 PM PST) + + + + + + | Component | Value | Ref Range | Performed | Pathologist | | | | | At | Signature | + + + + + + | WBC | 8.7 | 4.5 - 11.0 10 | EXTERNAL | | | | | | LAB | | + + + + + + | RED CELL | 4.57 | 4.3 - 5.7 10 | EXTERNAL | | | COUNT | | | LAB | | + + + + + + | Hgb | 13.3 (A) | 13.5 - 18.0 | EXTERNAL | | | | | g/dL | LAB | | + + + + + + | Hematocrit, | 40.4 (A) | 41 - 50 % | EXTERNAL | | | POC | | | LAB | | + + + + + + | MCV | 88.4 | 81 - 99 fL | EXTERNAL | | | | | | LAB | | + + + + + + | MCH | 29 | 27 - 33 pg | EXTERNAL | | | | | | LAB | | + + + + + + | MCHC | 33 | 30 - 36 g/dL | EXTERNAL | | | | | | LAB | | + + + + + + | Platelet | 252 | 140 - 440 K/ L | EXTERNAL | | | Count | | | LAB | | | Plasma | | | | | + + + + + + | RDW-CV | 15.5 (A) | 10.5 - 15.0 % | EXTERNAL | | | | | | LAB | | + + + + + + | MPV | | fL | EXTERNAL | | | | | | LAB | | + + + + + + | Differentia | | | EXTERNAL | | | l Type | | | LAB | | + + + + + + | % Segmented | | % | EXTERNAL | | | | | | LAB | | | Neutrophils | | | | | + + + + + + | % | | % | EXTERNAL | | | Lymphocytes | | | LAB | | + + + + + + | % Monocytes | | % | EXTERNAL | | | | | | LAB | | + + + + + + | % | | % | EXTERNAL | | | Eosinophils | | | LAB | | + + + + + + | % Basophils | | % | EXTERNAL | | | | | | LAB | | + + + + + + | Absolute | | / L | EXTERNAL | | | Segmented | | | LAB | | | Neutrophils | | | | | + + + + + + | Absolute | | / L | EXTERNAL | | | Lymphocytes | | | LAB | | + + + + + + | Absolute | | / L | EXTERNAL | | | Monocytes | | | LAB | | + + + + + + | Absolute | | / L | EXTERNAL | | | Eosinophils | | | LAB | | + + + + + + | Absolute | | / L | EXTERNAL | | | Basophils | | | LAB | | + + + + + + + + | Specimen | + + | Blood specimen | | (specimen) | + + + +---------+ + + | Performing | Address | City/State/Zipcode | Phone Number | | Organization | | | | + +---------+ + + | EXTERNAL LAB | | | | + +---------+ + + TSH (10/21/2017 2:44 PM PST) + +-------+ + + + | Component | Value | Ref Range | Performed | Pathologist | | | | | At | Signature | + +-------+ + + + | TSH | 1.92 | 0.27 - 4.2 | EXTERNAL | | | | | uIU/mL | LAB | | + +-------+ + + + + + | Specimen | + + | Blood specimen | | (specimen) | + + + +---------+ + + | Performing | Address | City/State/Zipcode | Phone Number | | Organization | | | | + +---------+ + + | EXTERNAL LAB | | | | + +---------+ + + Phosphorus (10/21/2017 2:44 PM PST) + +-------+ + + + | Component | Value | Ref Range | Performed | Pathologist | | | | | At | Signature | + +-------+ + + + | PHOSPHORUS | 4.7 | 2.5 - 5.0 mg/dL | EXTERNAL | | | | | | LAB | | + +-------+ + + + + + | Specimen | + + | Blood specimen | | (specimen) | + + + +---------+ + + | Performing | Address | City/State/Zipcode | Phone Number | | Organization | | | | + +---------+ + + | EXTERNAL LAB | | | | + +---------+ + + Magnesium (10/21/2017 2:44 PM PST) + +-------+ + + + | Component | Value | Ref Range | Performed | Pathologist | | | | | At | Signature | + +-------+ + + + | Magnesium | 2.1 | 1.7 - 2.5 mg/dL | EXTERNAL | | | | | | LAB | | + +-------+ + + + + + | Specimen | + + | Blood specimen | | (specimen) | + + + +---------+ + + | Performing | Address | City/State/Zipcode | Phone Number | | Organization | | | | + +---------+ + + | EXTERNAL LAB | | | | + +---------+ + + Lipid Panel (10/21/2017 2:44 PM PST) + +-------+ + + + | Component | Value | Ref Range | Performed | Pathologist | | | | | At | Signature | + +-------+ + + + | Cholesterol | 187 | mg/dL | EXTERNAL | | | | | | LAB | | + +-------+ + + + | Triglycerid | 128 | 30 - 150 mg/dL | EXTERNAL | | | es | | | LAB | | + +-------+ + + + | HDL | 45.9 | mg/dl | EXTERNAL | | | | | | LAB | | + +-------+ + + + | LDL | 116 | mg/dL | EXTERNAL | | | Cholesterol | | | LAB | | | , | | | | | | Calculated, | | | | | | External | | | | | + +-------+ + + + | LDl/HDL | | | EXTERNAL | | | Ratio | | | LAB | | + +-------+ + + + | Chol/HDL | 4.1 | | EXTERNAL | | | Ratio | | | LAB | | + +-------+ + + + | VLDL | 26 | 4 - 40 mg/dL | EXTERNAL | | | | | | LAB | | + +-------+ + + + | Non HDL | 141 | | EXTERNAL | | | Chol. | | | LAB | | | (LDL+VLDL) | | | | | + +-------+ + + + + + | Specimen | + + | Blood specimen | | (specimen) | + + + +---------+ + + | Performing | Address | City/State/Zipcode | Phone Number | | Organization | | | | + +---------+ + + | EXTERNAL LAB | | | | + +---------+ + + Comprehensive Metabolic Panel (10/21/2017 2:44 PM PST) + + + + + + | Component | Value | Ref Range | Performed | Pathologist | | | | | At | Signature | + + + + + + | Glucose, | 99 | 70 - 100 mg/dL | EXTERNAL | | | Fasting | | | LAB | | + + + + + + | BUN | 69 (A) | 6 - 23 mg/dL | EXTERNAL | | | | | | LAB | | + + + + + + | Creatinine | 2.32 (A) | 0.7 - 1.18 | EXTERNAL | | | | | mg/dL | LAB | | + + + + + + | BUN/Creatin | 29.7 (A) | 6.0 - 28.6 | EXTERNAL | | | ine Ratio | | | LAB | | + + + + + + | Calcium | 9.5 | 8.4 - 10.2 | EXTERNAL | | | | | mg/dL | LAB | | + + + + + + | Protein, | 7.8 | 6.0 - 8.0 g/dL | EXTERNAL | | | Total | | | LAB | | + + + + + + | Albumin | 3.8 | 3.5 - 5.0 | EXTERNAL | | | | | | LAB | | + + + + + + | Globulin | 4.0 (A) | 1.8 - 3.5 | EXTERNAL | | | | | | LAB | | + + + + + + | A/G Ratio | 1.0 (A) | 1.1 - 2.4 | EXTERNAL | | | | | | LAB | | + + + + + + | Bilirubin | 0.9 | 0.0 - 1.2 mg/dL | EXTERNAL | | | Total | | | LAB | | + + + + + + | ALP, | 97 | 31 - 120 | EXTERNAL | | | External | | | LAB | | + + + + + + | ALT | 7 | 7 - 52 U/L | EXTERNAL | | | | | | LAB | | + + + + + + | AST | 14 | 13 - 39 U/L | EXTERNAL | | | | | | LAB | | + + + + + + | Na | 141 | 132 - 143 | EXTERNAL | | | | | mmol/L | LAB | | + + + + + + | K | 3.5 (A) | 3.6 - 5.1 | EXTERNAL | | | | | mmol/L | LAB | | + + + + + + | Cl | 95 | 95 - 112 mmol/L | EXTERNAL | | | | | | LAB | | + + + + + + | CO2 | 28 | 19 - 31 mmol/L | EXTERNAL | | | | | | LAB | | + + + + + + | Anion Gap | 21.5 (A) | 7 - 21 mmol/L | EXTERNAL | | | | | | LAB | | + + + + + + | Estimated | 27 (A) | 60 mg/dL | EXTERNAL | | | GFR | | | LAB | | + + + + + + + + | Specimen | + + | Blood specimen | | (specimen) | + + + +---------+ + + | Performing | Address | City/State/Zipcode | Phone Number | | Organization | | | | + +---------+ + + | EXTERNAL LAB | | | | + +---------+ + + documented in this encounter Visit Diagnoses Not on filedocumented in this encounter"
--- OUTSIDE RECORDS SUMMARY | ~2019-10-20 | XMS | Encounter Summary ---
Demographics + + + | Address | [address] | | | [place] [address] | + + + | Home Phone | | + + + | Preferred Language | Unknown | + + + | Marital Status | | + + + | Episcopal Affiliation | 1041 | + + + | Race | Unknown | + + + | Ethnic Group | Unknown | + + + Author + + + | Author | [facility] | | | and [place] | + + + | Organization | [facility] | | | [...] Team Providers + +------+ + | Care Structural Steel Painter Name | Role | Phone | + [...] | Lumbar | [place], | [address] | | | | | radiculopath | Chris Storm MD | [employer], | | | | | y | [address] | [place] | | | | | Procedures | [place] | [address] | | | | | NE INJECT | [place], [place] | Phone: | | | | | ANES/STEROID | [address] | [phone] | | | | | FORAMEN | Phone: | Fax: | | | | | LUMBAR/SACRA | [phone] | [phone] | | | | | L W IMG | Fax: | | | | | | GUIDE ,1 | [phone] | | | | | | LEVEL NE | | | | | | | [...] | 07/13/ | Hospital | [facility] | [place], | Low back pain, | | 2017 | Encounter | MED CTR XRAY [address] | [address] | unspecified back | | | | [place] | [facility], | pain laterality, | | | | [place] [address] | [place] [address] | unspecified | | | | [phone] | [phone] | chronicity, with | | | | | | sciatica presence | | | | | Cnc Mechanic, [place] | unspecified; DDD | | | [...] [place] | | | | | | [address] | | | | | | | [...] + + | Performing | Address | City/State/Rustcode | Phone Number | | Organization | [...]
--- OUTSIDE RECORDS SUMMARY | ~2019-10-20 | XMS | Encounter Summary ---
Demographics + + + | Address | [address] | | | [place] [address] | + + + | Home Phone | | + + + | Preferred Language | Unknown | + + + | Marital Status | | + + + | Jewish Affiliation | 1041 | + + + | Race | Unknown | + + + | Ethnic Group | Unknown | + + + Author + + + | Author | [facility] | | | and [place] | + + + | Organization | [facility] | | | [...] Team Providers + +------+ + | Care Mixer Operator Hot Metal Name | Role | Phone | + +------+ + | Kushal Costa MD | PCP | | + +------+ + Encounter Details +--------+ + + + + | Date | Type | Department | Care Team | Description | +--------+ + + + + | 10/23/ | Orders Only | [facility] | Conversion | | | 2019 | | NEPHROLOGY [place] | Transaction, | | | | | [address] [place] | Provider Unknown | | | | | [address] [facility] [place] [place] | | | | | | [address] | (Fax) | | | | | [phone] | | | +--------+ + + + [...] 2019 | Visit | | [address] [facility] | | | | | | 160 [place] | | | | | | [address] | | | | | | | [...] + | URIC ACID | Routin | 10/23/2018 | | Results for this | | | e | 9:05 AM | | procedure are in the | | | | PST | | results section. | + +--------+ + + + documented in this encounter Results Uric Acid (10/23/2018 9:05 AM PST) + +---------+ + + + | Component | Value | Ref Range | Performed | Pathologist | | | | | At | Signature | + +---------+ + + + | Uric Acid | 9.0 (A) | 4.4 - 7.6 | EXTERNAL | | | | | | LAB | | + +---------+ + + + + + | Specimen [...]
--- OUTSIDE RECORDS SUMMARY | ~2019-10-20 | XMS | Encounter Summary ---
Demographics + + + | Address | [address] | | | [place] [address] | + + + | Home Phone | | + + + | Preferred Language | Unknown | + + + | Marital Status | | + + + | Zoroastrian Affiliation | 1041 | + + + | Race | Unknown | + + + | Ethnic Group | Unknown | + + + Author + + + | Author | [facility] | | | and [place] | + + + | Organization | [facility] | | | [...] Team Providers + +------+ + | Care Disc Pad Grinder Name | Role | Phone | + +------+ + | Kushal Costa MD | PCP | | + +------+ + Encounter Details +--------+ + + + + | Date | Type | Department | Care Team | Description | +--------+ + + + + | 07/26/ | Orders Only | [facility] | [place] Gandara MD | CKD (chronic kidney | | 2019 | | NEPHROLOGY [place] | [address] [place] | disease), stage IV | | | | [address] [place] | 160 [place], [place] | (HCC) (Primary Dx) | | | | 160 [place], [place] | [address] | | | | | [address] | | | | | | [phone] | | | +--------+ + + + [...] 2020 | [facility] | | [facility] [address] [facility] | | | | | | 160 [place], [place] | | | | | | [address] | | | | | | | [...]
--- OUTSIDE RECORDS SUMMARY | ~2019-10-20 | XMS | Encounter Summary ---
Demographics + + + | Address | [address] | | | [place] [address] | + + + | Home Phone | | + + + | Preferred Language | Unknown | + + + | Marital Status | | + + + | Restoration Affiliation | 1041 | + + + [...] Team Providers + +------+ + | Care Medical Education Specialist Name | Role | Phone | + +------+ + | Kushal Costa MD | PCP | | + +------+ + Encounter Details +--------+ + + + + | Date | Type | Department | Care Team | Description | +--------+ + + + + | 02/11/ | Orders Only | [facility] | [place] Gandara MD | | | 2018 | | NEPHROLOGY [place] | [address] [place] | | | | | [address] [place] | [address] [place], [place] | | | | | 160 [place], [place] | [address] | | | | | [address] | | | | | | [phone] | | | +--------+ + + + [...] 2020 | Visit | | [address] [facility] | | | | | | 160 [place] | | | | | | [address] | | | | | | | [...] | | | LAB | | | [place] | | | | | + + [...]
--- OUTSIDE RECORDS SUMMARY | ~2019-10-20 | XMS | Encounter Summary ---
Demographics + + + | Address | [address] | | | [place] [address] | + + + | Home Phone | | + + + | Preferred Language | Unknown | + + + | Marital Status | Single | + + + | Scientology Affiliation | Unknown | + + + | Race | Unknown | + + + | Ethnic Group | Other Race | + + + Author + + + | Author | [facility] | + + + | Organization | [facility] | + + + | Address | Unknown | + + + | Phone | Unavailable | + + + Support + + +---------+ + | Name | Relationship | Address | Phone | + + +---------+ + | None None | ECON | Unknown | Unavailable | + + +---------+ + Care Team Providers + +------+ + | Care Straightening Roll Operator Name | Role | Phone | + +------+ + PCP | Unavailable | + +------+ + Encounter Details +--------+ + + + + | Date | Type | Department | Care Team | Description | +--------+ + + + + | 01/12/ | Procedure-E | Neurophysiology - | Sy Goodwin, | | | 2007 | CX | EEG [address] | MD [address] | | | | | Ave Mailcode: [address] | [place], [place] | | | | | [facility] | [address] | | | | | and Healing, | [phone] | | | | | [facility] | | | | | | Floor [place], [place] | | | | | | [address] | | | | | | [phone] | | | +--------+ + + + [...] Not on filedocumented as of this encounter Procedures + +--------+ + + + | Procedure Name | Priori | Date/Time | Associated Diagnosis | Comments | | | ty | | | | + +--------+ + + + | EEG ROUTINE | Routin | 01/12/2008 | | Results for this | | | e | | | procedure are in the | | | | | | results section. | + +--------+ + + + documented in this encounter Results EEG ROUTINE (01/12/2008) + + | Specimen | + + | | + + + + + | Narrative | Performed At | + + + | Patient Name: Michael Joshi Date of : 1940 Medical | | | Record Number: [id number] Date of Test: 01/13/2008 ROUTINE EEG | | | Done at [facility] The awake background is of low | | | voltage and contains a posteriorly dominant and symmetrically | | | distributed 8-9 Hz Intermittent alpha rhythm that blocks with eye | | | opening. There is also some low voltage beta activity in the | | | background. The recording is somewhat compromised by muscle | | | artifact in both temporal regions. There is little change in the | | | course of the recording though at times he appears to be a bit | | | drowsy. Hyperventilation and photic stimulation produced no | | | significant changes to the EEG. Clinical interpretation: this is a | | | normal awake and early drowsy EEG. No epileptiform discharges or | | | lateralized abnormalities were seen. Sy Goodwin M.D. Dept. | | | Of Neurology | | + + + documented in this encounter Visit Diagnoses Not on filedocumented in this encounter"
--- OUTSIDE RECORDS SUMMARY | ~2019-10-20 | XMS | Encounter Summary ---
Demographics + + + | Address | [address] | | | [place] [address] | + + + | Home Phone | | + + + | Preferred Language | Unknown | + + + | Marital Status | Single | + + + | Anabaptist Affiliation | Unknown | + + + | Race | Unknown | + + + | Ethnic Group | Other Race | + + + Author + + + | Author | [facility] | + + + | Organization | [facility] | + + + | Address | Unknown | + + + | Phone | Unavailable | + + + Support + + +---------+ + | Name | Relationship | Address | Phone | + + +---------+ + | None None | ECON | Unknown | Unavailable | + + +---------+ + Care Team Providers + +------+ + | Care Liability Claims Adjuster Name | Role | Phone | + [...] | | | Ave Mailcode: [address] | [place], [place] | | | | | [facility] | [address] | | | | | and Healing, | [phone] | | | | | [facility] | | | | | | Floor [place], [place] | | | | | | [address] | | | | | | [phone] | | | +--------+ + + + [...] 1940 Medical | | | Record Number: [id number] Date of Test: 01/13/2008 ROUTINE EEG | | | Done at [facility] The awake background is of low | [...]
--- OUTSIDE RECORDS SUMMARY | ~2019-10-20 | XMS | Encounter Summary ---
Demographics + + + | Address | [address] | | | [place] [address] | + + + | Home Phone | | + + + | Preferred Language | Unknown | + + + | Marital Status | | + + + | Shinto Affiliation | 1041 | + + + | Race | Unknown | + + + | Ethnic Group | Unknown | + + + Author + + + | Author | [facility] | | | and [place] | + + + | Organization | [facility] | | | and [...] Team Providers + +------+ + | Care Bridge Game Director Name | Role | Phone | + +------+ + PCP | Unavailable | + +------+ + Encounter Details +--------+ + + + + | Date | Type | Department | Care Team | Description | +--------+ + + + + | 06/06/ | Hospital | [facility] | Tj Luevano MD | | | 2006 - | Encounter | MED [facility] MED ONC | [address] [facility] | | | | | [address] | [place] | | | 06/10/ | | [place] [address] | [address] | | | 2005 | | [phone] | | | | | | | [...] 2019 | Visit | | [address] [facility] | | | | | | 160 [place] | | | | | | [address] | | | | | | | [...]
--- OUTSIDE RECORDS SUMMARY | ~2019-10-20 | XMS | Encounter Summary ---
Demographics + + + | Address | [address] | | | [place] [address] | + + + | Home Phone | | + + + | Preferred Language | Unknown | + + + | Marital Status | | + + + | Samaritan Affiliation | 1041 | + + + | Race | Unknown | + + + | Ethnic Group | Unknown | + + + Author + + + | Author | [facility] | | | and [place] | + + + | Organization | [facility] | | | [...] Team Providers + +------+ + | Care Risk Management Manager Name | Role | Phone | + +------+ + | Kushal Costa MD | PCP | | + +------+ + Encounter Details +--------+ + + + + | Date | Type | Department | Care Team | Description | +--------+ + + + + | 10/24/ | Orders Only | [facility] | Conversion | | | 2019 | | NEPHROLOGY [place] | Transaction, | | | | | [address] [place] | Provider Unknown | | | | | [address] [facility] [place] | | | | | | [address] | (Fax) | | | | | [phone] | | | +--------+ + + + [...] 2019 | Visit | | [address] [facility] | | | | | | [address] [place] | | | | | | [address] | | | | | | | [...] - 1.030 | EXTERNAL | | | [place] | | | LAB | | + [...]
--- OUTSIDE RECORDS SUMMARY | ~2019-10-20 | XMS | Encounter Summary ---
Demographics + + + | Address | [address] | | | [place] [address] | + + + | Home Phone | | + + + | Preferred Language | Unknown | + + + | Marital Status | | + + + | Tenriism Affiliation | 1041 | + + + | Race | Unknown | + + + | Ethnic Group | Unknown | + + + Author + + + | Author | [facility] | | | and [place] | + + + | Organization | [facility] | | [...] Team Providers + +------+ + | Care Electrical Linesworker Name | Role | Phone | + +------+ + PCP | Unavailable | + +------+ + Encounter Details +--------+ + + + + | Date | Type | Department | Care Team | Description | +--------+ + + + + | 06/06/ | Hospital | [facility] | Tj Luevano MD | | | 2006 - | Encounter | MED CTR MED ONC | [address] [facility] | | | | | [address] | [place] | | | 06/10/ | | [place] [address] | [address] | | | 2005 | | [phone] | [phone] | | | | | | | [...] [facility] | | | | | | [address] [place] | | | | | | [address] | | | | | | | [...]
--- OUTSIDE RECORDS SUMMARY | ~2019-10-20 | XMS | Encounter Summary ---
Demographics + + + | Address | [address] | | | [place] [address] | + + + | Home Phone | | + + + | Preferred Language | Unknown | + + + | Marital Status | | + + + | Quaker Affiliation | 1041 | + + + [...] Team Providers + +------+ + | Care Powerhouse Electrician Name | Role | Phone | + +------+ + | Kushal Costa MD | PCP | | + +------+ + Encounter Details +--------+ + + + + | Date | Type | Department | Care Team | Description | +--------+ + + + + | 05/12/ | Orders Only | [facility] | Provider, | Chronic kidney | | 2019 | | SYSTEM GENERIC OP | MD [address] | disease, stage III | | | | CONVERSION [address] | [place] [address] | (moderate) (HCC); | | | | [address] [place], [place] | [place] [address] | Hypokalemia; | | | | [address] | | Localized edema; | | | | [phone] | | Essential (primary) | | | [...] 2020 | Visit | | [address] [facility] | | | | | | 160 [place] | | | | | | [address] | | | | | | | [...] Expires: | | | | | (moderate) ([facility]) | 09/28/2019 | | | | | Hypokalemia | | | | | | Localized edema | | | | | | Essential (primary) | | | | | | hypertension Fluid | | | | | | overload Secondary | | | | | | hyperparathyroidism | | | | | | of renal origin | | | | | | ([facility]) | | + +------+--------+ + + | Basic Metabolic | Lab | Routin | Chronic kidney | Expected: | | Panel | | e | disease, stage III | 11/02/2018, Expires: | | | | | (moderate) ([facility]) | 10/26/2019 | | | | | [...] Expires: | | | | | (moderate) ([facility]) | 04/19/2020 | | | | | Essential (primary) | | | | | | hypertension | | | | | | Secondary | | | | | | hyperparathyroidism | | | | | | of renal origin | | | | | | ([facility]) | | + +------+--------+ + + | [...]
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
--- OUTSIDE RECORDS SUMMARY | ~2019-10-20 | XMS | Encounter Summary ---
Demographics + + + | Address | [address] | | | [place] [address] | + + + | Home Phone [...] Team Providers + +------+ + | Care Equipment Validation Engineer Name | Role | Phone | + +------+ + | Kushal Costa MD | PCP | | + +------+ + Encounter Details +--------+ + + + + | Date | Type | Department | Care Team | Description | +--------+ + + + + | 12/26/ | Hospital | C GENERIC IP | Conversion | Chest pain, | | 2019 | Encounter | CONVERSION DEP [address] | Transaction, | unspecified type | | | | [address] | Provider Unknown | | | | | [place], [place] | [phone] | | | | | [address] | (Fax) | | | | | [phone] | | | +--------+ + + + [...] + + documented as of this encounter Medications at Time of Discharge [...] +---------+--------+ + documented as of this encounter Plan of Treatment +--------+ + + + + | Date | Type | Specialty | Care Team | Description | +--------+ + + + + | 11/29/ | Office | Nephrology | Danny Gandara MD | | | 2019 | Visit | | [address] [facility] | | | | | | [address] [place] | | | | | | [address] | | | | | | | [...] + + + | XR CHEST 2 VIEWS | Routin | 12/26/2018 | | Results for this | | | e | 10:56 PM | | procedure are in the | | | | PST | | results section. | + +--------+ + + + documented in this encounter Results XR Chest 2 Vws (12/26/2018 10:56 PM PST) + + | Specimen | + + | | + + + + + | Narrative | Performed At | + + + | This is a non-reportable procedure without a radiologist report and | | | is used for image storage only | | + + + + + | Procedure Note | + + | Edgardo Piper - 06/01/2019 8:17 PM PDT This is a non-reportable procedure | | without a radiologist report and isused for image storage only | + + documented in this encounter Visit Diagnoses + + | Diagnosis | + + | Chest pain, unspecified type | + + documented in this encounter"
--- OUTSIDE RECORDS SUMMARY | ~2019-10-20 | XMS | Clinical Summary ---
Demographics + + + | Address | [address] | | | [place] [address] | + + + | Home Phone | | + + + | Preferred Language | Unknown | + + + | Marital Status | Single | + + + | Sabianist Affiliation [...] Team Providers + +------+ + | Care Dredge Runner Name | Role | Phone | + +------+ + PCP | Unavailable | + +------+ + Source Comments [facility] is fully live on both [facility] and [facility] In[facility] Allergies Not on File Medications Not [...]
--- OUTSIDE RECORDS SUMMARY | ~2019-10-20 | XMS | Clinical Summary ---
Demographics + + + | Address | [address] | | | [place] [address] | + + + | Home Phone | | + + + | Preferred Language | Unknown | + + + | Marital Status | | + + + | Mormon Affiliation | 1041 | + + + | Race | Unknown | + + + | Ethnic Group | Unknown | + + + Author + + + | Author | [facility] | | | and [place] | + + + | Organization | [facility] | | | [...] Team Providers + +------+ + | Care Civil Division Deputy Sheriff Name | Role | Phone | + [...] + + + | Overview: Problem List Plant Sprayer Utility | + + + + + [...] 10/11/ | Procedure | Cardiology | | Pacemaker | | 2019 | visit | | | | +--------+ + + + + | 09/06/ | Telephone | Nephrology | Danny Gandara MD | Other (Facility call | | 2018 | | | | ) | +--------+ + + + + | 07/26/ | Office | Nephrology | Danny Gandara MD | Anemia of chronic | | 2019 | Visit | | | renal failure, stage | | | | | | 3 (moderate) (HCC) | | | | | | (Primary Dx); CKD | | | | | | (chronic kidney | | | | | | disease), stage IV | | | | | | (HCC); Electrolyte | | | | | | imbalance risk; | | | | | | Secondary | | | | | | hyperparathyroidism | | | | | | ([facility]); Vitamin D | | | | | | deficiency | +--------+ + + + + | 07/26/ | Orders Only | Nephrology | Danny Gandara MD | CKD (chronic kidney | | 2018 | | | | disease), stage IV | | | | | | ([facility]) (Primary Dx) | +--------+ + + + + | 07/26/ | Documentati | Nephrology | Jatinder, | | | 2018 | on | | Bandar Cannon | | | | | | Creative Project Manager | | +--------+ + + + + [...] | Marianna | | | | | [place] | | + + +---------+ + + +---------+--------+ + | Relation | Name | Status | Comments | + +---------+--------+ + | Daughter | Marianna | Alive | | | | [place] | | | + +---------+--------+ + Social [...] 2019 | Visit | | [address] [facility] | | | | | | [address] | | | | | | [address] | | | | | | | [...] | + +--------+ + + + | DEVICE | Routin | 10/11/2019 | Pacemaker | Results for this | | INTERROGATION- | e | 8:00 AM | | procedure are in the | | REMOTE | | PST | | results section. [...] + + from Last 3 Months Results Device Interrogation - Remote (10/11/2019 8:00 AM PST) + + + | Narrative | Performed At | + + + | Marcus Lynn | [facility] | | [place] 10/15/2019 7:31 PRIETOHIALYSIA REMOTE INTERROGATION | | | REPORT Name: Michael Joshi PCP: Kushal Costa MD : | | | 1940MRN: [id number] Primary cardiology provider: [facility] | | | [facility] Primary electrophysiology provider: [place] Device | | | flight follower: panOpen Device type: Single chamber | | | (Ventricular) Battery Longevity: 10 years. RV Pacin% | | | INTERROGATION RESULTS:Please see the full interrogation report | | | attached Known history of atrial flutter or atrial fibrillation: | | | YesCurrent antithrombotic therapy including: status post Watchman | | | device Mode switches: No atrial lead present. Ventricular high rate | | | episodes: Since last in-office check on VHR episode with | | | EGM's noted. Events might be Afib with RVR. Fastest and longest | | | episode was on 08/03/19 at 0949. Event had an average ventricular rate | | | of 176 bpm, and lasted 14 seconds. Lead function: Lead impedance and | | | threshold value trends have been reviewed and are acceptable based on | | | most recent evaluation Follow up: The next scheduled interrogation | | | will be in 3 months via remote transmission. Additional comments: | | | None. IMPRESSION:1. Normal pacemaker function.2. No atrial lead.3. | | | Ventricular high rate episodes were noted as above. Testing reviewed | | | by: Marcus Cook RN | | |Current antithrombotic therapy including: status post Watchman | | |device | | | | | |Mode switches: No atrial lead present. | | | | | |Ventricular high rate episodes: Since last in-office check on | | |07/08/19 | | |2 VHR episode with EGM's noted. Events might be Afib with RVR. | | |Fastest and longest episode was on 08/03/19 at 0949. Event had an | | |average ventricular rate of 176 bpm, and lasted 14 seconds. | | | | | |Lead function: Lead impedance and threshold value trends have | | |been reviewed and are acceptable based on most recent evaluation | | | | | |Follow up: The next scheduled interrogation will be in 3 months | | |via remote transmission. | | | | | |Additional comments: None. | | | | | |IMPRESSION: | | |1. Normal pacemaker function. | | |2. No atrial lead. | | |3. Ventricular high rate episodes were noted as above. | | | | | |Testing reviewed by: Marcus Cook RN | | + + + + +---------+ + + | Performing | Address | City/State/Zipcode | Phone Number | | Organization | | | | + +---------+ + + | [facility] | | | | + +---------+ + + External Lab: PTH, Intact (07/23/2019) [...] +--------+ +---------+--------+ | MEDICARE | MEDICA | [id number] | 10/20/19 | [phone] | | Medica | | | RE | | 05-Pre | 5 | | re | | | PART A | | sent | | | | | | AND B | | | | | | + +--------+ +--------+ +---------+--------+ | MEDICARE | MEDICA | [id number] | 10/20/19 | [phone] | | Medica [...] | | al/Fam | | 1941 | [address] | [place], [place] | | | [place]issy | | | 1 (Home) | [address] | + +--------+ +--------+ + + | Michael Joshi | Person | Self | [birth year] | [address] | | | al/Fam | | 1941 | [phone] | [place], [place] | | | [place]y | | | 1 (Home) | [address] | + +--------+ +--------+ + + Advance Directives + + + + + | Type | Date Recorded | Patient | Explanation | | | | Measurement Supervisor | | + + + + + | Power of | | | | | Decorating Instructor | | | | + + + + + | Advance | | | | | Directive | | | | + + + + +
--- OUTSIDE RECORDS SUMMARY | ~2019-10-20 | XMS | Encounter Summary ---
Demographics + + + | Address | [address] | | | [place] [address] | + + + | Home Phone | | + + + | Preferred Language | Unknown | + + + | Marital Status | | + + + | Advent Affiliation | 1041 | + + + | Race | Unknown | + + + | Ethnic Group | Unknown | + + + Author + + + | Author | [facility] | | | and [place] | + + + | Organization | [facility] | | [...] Team Providers + +------+ + | Care Computer Engineering Technician Name | Role | Phone | + +------+ + | Kushal Costa MD | PCP | | + +------+ + Encounter Details +--------+ + + + + | Date | Type | Department | Care Team | Description | +--------+ + + + + | 03/25/ | Orders Only | [facility] | Armando Mattson | | | 2016 | | CONVERSION [address] | MD [address] | | | | | [address] | EXCHANGE | | | | | [place], [place] | [place] [address] | | | | | [address] | [phone] | | | | | [phone] | | | +--------+ + + + [...] 2019 | Visit | | [address] [facility] | | | | | | [address] [facility] | | | | | | [address] | | | | | | | [...] + | ECHO INTERPRETATION | Routin | 03/25/2016 | | Results for this | | OF OUTSIDE FILMS | e | 11:42 AM | | procedure are in the | | | | PDT | | results section. | + +--------+ + + + documented in this encounter Results ECHO Interpretation of Outside Films (03/25/2016 11:42 AM PDT) + + | Specimen | + + | | + + + + + | Impressions | Performed At | + + + | 1. See Dictation. A fib, paced rhythm. 2. Cor Pulmonale. Severe | | | RV enlargement, systolic function preserved, septal flattening | | | suggestive of chronic RV volume and pressure overload. Pacing | | | catheter in RV. Moderate TR. IVC dilated and plethoric. Est | | | systolic PAP 67-72mmHg, severe Pulmonary HTN. Severe bi-Atrial | | | enlargement. Mild concentric LVH, diastolic function abnormal, | | | [place] visually estimates LVEF 50-55%. 3. Aortic valve mildly | | | sclerotic, mild AI, no . Mitral valve has mild nodular | | | calcification, mild MAC, moderate MR. Tricuspid and Pulmonic valves | | | grossly NML, moderate TR, mild PI. 4. Small Pericardial effusion, | | | doubt tamponade. 5. Aortic root and Ascending Aorta mildly enlarged, | | | 39mm. | | + + + + + + | Narrative | Performed At | + + + | Patient Name: Michael Joshi Date of : 1940 | | | Performing Physician: Derrek Barnhart DO | | | | | | INDICATIONS SOB CONCLUSIONS 1. See | | | Dictation. A fib, paced rhythm. 2. Cor Pulmonale. Severe RV | | | enlargement, systolic function preserved, septal flattening suggestive | | | of chronic RV volume and pressure overload. Pacing catheter in RV. | | | Moderate TR. IVC dilated and plethoric. Est systolic PAP | | | 67-72mmHg, severe Pulmonary HTN. Severe bi-Atrial enlargement. | | | Mild concentric LVH, diastolic function abnormal, [place] visually | | | estimates LVEF 50-55%. 3. Aortic valve mildly sclerotic, mild AI, no | | | . Mitral valve has mild nodular calcification, mild MAC, | | | moderate MR. Tricuspid and Pulmonic valves grossly NML, moderate TR, | | | mild PI. 4. Small Pericardial effusion, doubt tamponade. 5. Aortic | | | root and Ascending Aorta mildly enlarged, 39mm. FINDINGS -------- | | | ECG rhythm: Atrial fibrillation. ECG rhythm: Paced rhythm. Study: | | | This was a technically difficult study with suboptimal views. Left | | | Ventricle: Overall left ventricular systolic function is low-normal | | | with, an EF between 50 - 55 %. Left Ventricle: The left ventricle | | | cavity size is normal. Left Ventricle: There is mild concentric left | | | ventricular hypertrophy. Left Ventricle: There is septal flattening | | | in diastole and systole which is consistent with right ventricular | | | pressure and volume overload. Left Ventricle: Pseudonormal LV | | | diastolic filling pattern, consistent with elevated LA pressure and | | | moderate dysfunction (Grade II). Right Ventricle: The right ventricle | | | is severely enlarged measuring >4.1 cm. Right Ventricle: The global | | | wall thickness of the right ventricle is moderately increased | | | measuring between 1.1 - 1.5 cm. Right Ventricle: The right | | | ventricular systolic function is normal. Right Ventricle: Pacer/ICD | | | wire seen. Left Atrium: The left atrium is markedly dilated. Right | | | Atrium: The right atrium is markedly enlarged. Aortic Valve: There is | | | mild aortic valve sclerosis without stenosis. Aortic Valve: There is | | | mild aortic regurgitation. Mitral Valve: Mitral valve is thickened | | | with nodular degeneration. Mitral Valve: Moderate mitral | | | regurgitation is present. Mitral Valve: Mild mitral annular | | | calcification present. Tricuspid Valve: The tricuspid valve appears | | | structurally normal. Tricuspid Valve: Moderate tricuspid | | | regurgitation present. Pulmonic Valve: Pulmonic valve appears | | | structurally normal. Pulmonic Valve: Mild pulmonic regurgitation. | | | Pericardium: There is a small pericardial effusion located near the | | | left ventricle. Pericardium: There is no evidence of cardiac | | | tamponade. IVC/Hepatic Veins: The IVC is dilated (>2.5cm) and | | | collapses <50% with sniff, consistent with central venous pressures of | | | 15-20mmHg. MEASUREMENTS Medical Tech: | | | Authenticated by: Derrek Barnhart DO Report Date/Time: -- | | | [id number] | | + + + + + | Procedure Note | + + | Feliz, Rad Conversion - 06/11/2019 10:42 AM PDT Patient Name: Kel Joshi of | | : 1940 Performing Physician: Derrek Barnhart | | DO INDICATIONS S | | OB CONCLUSIONS 1. See Dictation. A fib, paced rhythm. 2. Cor Pulmonale. | | Severe RV enlargement, systolic function preserved, septal flattening suggestive of | | chronic RV volume and pressure overload. Pacing catheter in RV. Moderate TR. IVC | | dilated and plethoric. Est systolic PAP 67-72mmHg, severe Pulmonary HTN. Severe | | bi-Atrial enlargement. Mild concentric LVH, diastolic function abnormal, [place] | | visually estimates LVEF 50-55%. 3. Aortic valve mildly sclerotic, mild AI, no . | | Mitral valve has mild nodular calcification, mild MAC, moderate MR. Tricuspid and | | Pulmonic valves grossly NML, moderate TR, mild PI. 4. Small Pericardial effusion, doubt | | tamponade. 5. Aortic root and Ascending Aorta mildly enlarged, 39mm. FINDINGS--------ECG | | rhythm: Atrial fibrillation.ECG rhythm: Paced rhythm.Study: This was a technically | | difficult study with suboptimal views.Left Ventricle: Overall left ventricular systolic | | function is low-normal with, an EF between 50 - 55 %.Left Ventricle: The left ventricle | | cavity size is normal.Left Ventricle: There is mild concentric left ventricular | | hypertrophy.Left Ventricle: There is septal flattening in diastole and systole which is | | consistent with right ventricular pressure and volume overload.Left Ventricle: | | Pseudonormal LV diastolic filling pattern, consistent with elevated LA pressure and | | moderate dysfunction (Grade II).Right Ventricle: The right ventricle is severely | | enlarged measuring >4.1 cm.Right Ventricle: The global wall thickness of the right | | ventricle is moderately increased measuring between 1.1 - 1.5 cm.Right Ventricle: The | | right ventricular systolic function is normal.Right Ventricle: Pacer/ICD wire seen.Left | | Atrium: The left atrium is markedly dilated.Right Atrium: The right atrium is markedly | | enlarged.Aortic Valve: There is mild aortic valve sclerosis without stenosis.Aortic | | Valve: There is mild aortic regurgitation.Mitral Valve: Mitral valve is thickened with | | nodular degeneration.Mitral Valve: Moderate mitral regurgitation is present.Mitral | | Valve: Mild mitral annular calcification present.Tricuspid Valve: The tricuspid valve | | appears structurally normal.Tricuspid Valve: Moderate tricuspid regurgitation | | present.Pulmonic Valve: Pulmonic valve appears structurally normal.Pulmonic Valve: Mild | | pulmonic regurgitation.Pericardium: There is a small pericardial effusion located near | | the left ventricle.Pericardium: There is no evidence of cardiac tamponade.IVC/Hepatic | | Veins: The IVC is dilated (>2.5cm) and collapses <50% with sniff, consistent with | | central venous pressures of 15-20mmHg. MEASUREMENTS Medical Tech: | | DHAuthenticated by: Derrek Dockery Date/Time: -- [id number] | | IMPRESSION: 1. See Dictation. A fib, paced rhythm. 2. Cor Pulmonale. Severe RV | | enlargement, systolic function preserved, septal flattening suggestive of chronic RV | | volume and pressure overload. Pacing catheter in RV. Moderate TR. IVC dilated and | | plethoric. Est systolic PAP 67-72mmHg, severe Pulmonary HTN. Severe bi-Atrial | | enlargement. Mild concentric LVH, diastolic function abnormal, [place] visually | | estimates LVEF 50-55%. 3. Aortic valve mildly sclerotic, mild AI, no . Mitral valve | | has mild nodular calcification, mild MAC, moderate MR. Tricuspid and Pulmonic valves | | grossly NML, moderate TR, mild PI. 4. Small Pericardial effusion, doubt tamponade. 5. | | Aortic root and Ascending Aorta mildly enlarged, 39mm. | |Pericardium: There is a small pericardial effusion located near the left ventricle. | |Pericardium: There is no evidence of cardiac tamponade. | |IVC/Hepatic Veins: The IVC is dilated (>2.5cm) and collapses <50% with sniff, consistent wi th central venous pressures of 15-20mmHg. | | | |MEASUREMENTS | | | | | |Medical Tech: | |Authenticated by: Derrek Barnhart DO | |Report Date/Time: -- [id number] | | | |IMPRESSION: | |1. See Dictation. A fib, paced rhythm. 2. Cor Pulmonale. Severe RV enlargement, systolic function preserved, septal flattening suggestive of chronic RV volume and pressure overload. Pacing catheter in RV. Moderate | |TR. IVC dilated and plethoric. Est | | systolic PAP 67-72mmHg, severe Pulmonary HTN. Severe bi-Atrial enlargement. Mild concent romelia LVH, diastolic function abnormal, [place] visually estimates LVEF 50-55%. 3. Aortic valve mildly sclerotic, mild AI, no . Mitral valve has mild nodular | |calcification, mild MAC, moderate MR. Tricuspid and Pulmonic valves grossly NML, moderate TR, mild PI. 4. Small Pericardial effusion, doubt tamponade. 5. Aortic root and Ascending Ao rta mildly enlarged, 39mm. | + + documented in this encounter Visit Diagnoses Not on filedocumented in this encounter"
--- OUTSIDE RECORDS SUMMARY | ~2019-10-20 | XMS | Encounter Summary ---
Demographics + + + | Address | [address] | | | [place] [address] | + + + | Home Phone | | + + + | Preferred Language | Unknown | + + + | Marital Status | | + + + | Amish Affiliation | 1041 | + + + | Race | Unknown | + + + | Ethnic Group | Unknown | + + + Author + + + | Author | [facility] | | | and [place] | + + + | Organization | [facility] | | [...] Team Providers + +------+ + | Care Meat Supervisor Name | Role | Phone | + +------+ + | Kushal Costa MD | PCP | | + +------+ + Encounter Details +--------+ + + + + | Date | Type | Department | Care Team | Description | +--------+ + + + + | 12/19/ | Orders Only | [facility] | Danny Gandara MD | | | 2017 | | NEPRHOLOGY [place] | [address] | | | | | [address] | [address] [place], [place] | | | | | [address] [place], [place] | [address] | | | | | [address] | | | | | | [phone] | | | +--------+ + + + [...] | | | | | | [address] [place] | | | | | | [address] | | | | | | | [...] | + +--------+ + + + | URINALYSIS WITH | Routin | 12/19/2017 | | Results for this | | MICROSCOPIC IF | e | 12:00 AM | | procedure are in the | | INDICATED | | PST | | results section. | + +--------+ + + + | PROTEIN/CREATININE | Routin | 12/19/2017 | | Results for this | | RATIO, URINE | e | 12:00 AM | | procedure are in the | | | | PST | | results section. | + +--------+ + + + documented in this encounter Results Protein/Creatinine Ratio, Urine (12/19/2017 12:00 AM PST) + + + + + + | Component | Value | Ref Range | Performed | Pathologist | | | | | At | Signature | + + + + + + | Protein/Cre | 175.9 (A) | 0 - 150 | EXTERNAL | [...] | | | + +---------+ + + Urinalysis with Microscopic if Indicated (12/19/2017 12:00 AM PST) + + + + [...] + + + + + + | Spec Grav, | 1.015 | 1.005 - 1.030 | EXTERNAL | | | Fluid | | | LAB | | + [...] + + + + + + | Total | Negative | | EXTERNAL | | | Protein | | | LAB | | + [...]
--- OUTSIDE RECORDS SUMMARY | ~2019-10-20 | XMS | Encounter Summary ---
Demographics + + + | Address | [address] | | | [place] [address] | + + + | Home Phone [...] Team Providers + +------+ + | Care Personal Clothing Laundry Aide Name | Role | Phone | [...] [place] | | | | | [phone] | [place] [address] | | +--------+ + + + + [...] 2019 | Visit | | [address] [facility] [place] | | | | | | [address] [place], [place] | | | | | | [address] | | | | | | | [...]
--- OUTSIDE RECORDS SUMMARY | ~2019-10-20 | XMS | Encounter Summary ---
Demographics + + + | Address | [address] | | | [place] [address] | + + + | Home Phone | | + + + | Preferred Language | Unknown | + + + | Marital Status | | + + + | Taoist Affiliation | 1041 | + + + | Race | Unknown | + + + | Ethnic Group | Unknown | + + + Author + + + | Author | [facility] | | | and [place] | + + + | Organization | [facility] | | [...] Team Providers + +------+ + | Care Freight Hustler Name | Role | Phone | + [...] Provider Unknown | | | | | [place], [place] | [phone] | | | | | [address] | (Fax) | | | | | [phone] | | | +--------+ + + + [...] 2019 | Visit | | [address] [facility] | | | | | | [address] [place] | | | | | | [address] | | | | | | | [...]
--- OUTSIDE RECORDS SUMMARY | ~2019-10-20 | XMS | Encounter Summary ---
Demographics + + + | Address | [address] | | | [place] [address] | + + + | Home Phone [...] Team Providers + +------+ + | Care E Business Specialist Name | Role | Phone | + +------+ + | Kushal Costa MD | PCP | | + +------+ + Encounter Details +--------+---------+ + + + | Date | Type | Department | Care Team | Description | +--------+---------+ + + + | 07/26/ | Office | [facility] | Danny Gandara MD | Anemia of chronic | | 2019 | Visit | NEPHROLOGY [place] | [address] [facility] | renal failure, stage | | | | [address] | [address] [place], [place] | 3 (moderate) (HCC) | | | | [address] [place] [address] | [address] | (Primary Dx); CKD | | | | [place], [place] | | (chronic kidney | | | | [address] | | disease), stage IV | | | | [phone] | | ([facility]); Electrolyte | | | | | | imbalance risk; | | | | | | Secondary | | | | | | hyperparathyroidism | | | | | | ([facility]); Vitamin D | | | | | [...] Instructions Danny Gandara MD - 07/26/2019 10:00 AM PDTDiscussions/Recommendations : I discussed today with Mr. Joshi the [...] iPTH before he comes back in 4 months.Deanna ctronically signed by Danny Gandara MD at 07/26/2019 10:42 AM PDT documented in this encounter Progress Notes Danny Gandara MD - 07/26/2019 10:00 AM PDT Patient Active Problem List Diagnosis Date [...] 12 (L) 12/27/2018 LABPROT 286.2 (A) 11/20/2018 [id number] 06/29/2018 Assessment: Mr. Joshi is a [...] D before he comes back in 4 [facility] Thank you Dr Costa for the opportunity to see this patient in F/U on an urgent basis tod ay as we are trying to prevent a hospitalization for severe electrolyte imbalance &/or sever e volume extremes. Please do not hesitate to call me at any time with questions or concerns. Truly yours, Danny Gandara MD [facility] documented in this enco unter Plan of Treatment +--------+ + + + + | Date | Type | Specialty | Care Team | Description | +--------+ + + + + | 11/29/ | Office | Nephrology | Danny Gandara MD | | | 2019 | Visit | | [address] [facility] | | | | | | [address] [place], [place] | | | | | | [address] | | | | | | | [...]
--- OUTSIDE RECORDS SUMMARY | ~2019-10-20 | XMS | Encounter Summary ---
Demographics + + + | Address | [address] | | | [place] [address] | + + + | Home Phone | | + + + | Preferred Language | Unknown | + + + | Marital Status | | + + + | Uatsdin Affiliation | 1041 | + + + | Race | Unknown | + + + | Ethnic Group | Unknown | + + + Author + + + | Author | [facility] | | | and [place] | + + + | Organization | [facility] | | | [...] Team Providers + +------+ + | Care Contract Administration Manager Name | Role | Phone | + +------+ + | Kushal Costa MD | PCP | | + +------+ + Reason for Visit + + + | Reason | Comments | + + + | Device Check | Routine | | (In-office) | | + + + Encounter Details +--------+ + + + + | Date | Type | Department | Care Team | Description | +--------+ + + + + | 07/06/ | Procedure | [facility] | Sparkle Brady, | Pacemaker | | 2019 | visit | CARDIOLOGY [place] | [address] | | | | | [address] | [place], [place] | | | | | [facility] | [address] | | | | | [place] | | | | | | [address] | | | | | | [phone] | | | +--------+ + + + [...] 2019 | Visit | | [address] [facility] [place] | | | | | | [address] [place] | | | | | | [address] | | | | | | | [...] + + | DEVICE | Routin | 07/06/2019 | Pacemaker | Results for this | | INTERROGATION- | e | 3:00 PM | | procedure are in the | | REMOTE | | PDT | | results section. | + +--------+ + + + documented in this encounter Results Device Interrogation - Remote (07/06/2019 3:00 PM PDT) + + + | Narrative | Performed At | + + + | Loyd Rondon Technologist 07/08/2019 13:34 PACEMAKER REMOTE | [facility] | | INTERROGATION REPORT Name: Michael Joshi PCP: Kushal Peacock | | | MD Igor : 1940 Primary cardiology | | | provider: Sparkle Brady Primary electrophysiology provider: None | | | Device automatic bandsaw tender: [employer] Device type: | | | Single chamber (Ventricular) Battery Longevity: 10 years | | | RV Pacin% INTERROGATION RESULTS: Please see the full | | | interrogation report attached Known history of atrial flutter | | | or atrial fibrillation: No Current antithrombotic therapy including: | | | N/A Mode switches: No atrial lead present. Ventricular high | | | rate episodes: None. Lead function: Lead impedance and threshold | | | value trends have been reviewed and are acceptable based on most | | | recent evaluation Follow up: The next scheduled interrogation will | | | be in 3 months via remote transmission. Additional comments: | | | None. IMPRESSION: 1. Normal pacemaker function. 2. No atrial | | | lead. 3. No ventricular high rate episodes were noted. Testing | | | reviewed by: Paras Dominguez | | + + + + +---------+ + + | Performing | Address | City/State/Zipcode | Phone Number | | Organization | | | | + +---------+ + + | [facility] | | | | + +---------+ + + documented in this encounter Visit Diagnoses + + | Diagnosis | + + | Pacemaker Cardiac pacemaker in situ | + + documented in this encounter"
--- OUTSIDE RECORDS SUMMARY | ~2019-10-20 | XMS | Encounter Summary ---
Demographics + + + | Address | [address] | | | [place] [address] | + + + | Home Phone | | + + + | Preferred Language | Unknown | + + + | Marital Status | | + + + | Mandaeism Affiliation | 1041 | + + + | Race | Unknown | + + + | Ethnic Group | Unknown | + + + Author + + + | Author | [facility] | | | and [place] | + + + | Organization | [facility] | | [...] Team Providers + +------+ + | Care Mill House Supervisor Name | Role | Phone | + +------+ + | Kushal Costa MD | PCP | | + +------+ + Encounter Details +--------+ + + + + | Date | Type | Department | Care Team | Description | +--------+ + + + + | 03/18/ | Orders Only | [facility] | Danny Gandara MD | | | 2017 | | NEPHROLOGY [place] | [address] [place] | | | | | [address] [place] | [address] [place], [place] | | | | | [address] [place], [place] | [address] | | | | | [address] | | | | | | [phone] | | | +--------+ + + + [...] 2019 | Visit | | [address] [facility] | | | | | | [facility] | | | | | | [address] | | | | | | | [...] | | | LAB | | | [place] | | | | | + + [...]
--- OUTSIDE RECORDS SUMMARY | ~2019-10-20 | XMS | Encounter Summary ---
Demographics + + + | Address | [address] | | | [place] [address] | + + + | Home Phone [...] Team Providers + +------+ + | Care Associate Designer Name | Role | Phone | + +------+ + | Kushal Costa MD | PCP | | + +------+ + Reason for Visit + + + | Reason | Comments | + + + | Injections | | + + + Encounter Details +--------+ + + + + | Date | Type | Department | Care Team | Description | +--------+ + + + + | 07/10/ | Telephone | [facility] [place] | Chris Ramsey | Injections | | 2018 | | PHYSIATRY [address] | [address] | | | | | [place], | [place], [place] | | | | | [place] [address] | [address] | | | | | [phone] | | | +--------+ + + + [...] 2020 | Visit | | [facility] [address] [facility] | | | | | | [address] [place] | | | | | | [address] | | | | | | | [...]
--- OUTSIDE RECORDS SUMMARY | ~2019-10-20 | XMS | Encounter Summary ---
Demographics + + + | Address | [address] | | | [place] [address] | + + + | Home Phone [...] Team Providers + +------+ + | Care Local Company Flatbed Truck Driver Name | Role | Phone [...] | EXCHANGE | | | | | [place], [place] | [place] [address] | | | | | [address] | [phone] | | | | | [phone] | | | +--------+ + + + [...] | [address] [facility] | | | | | | [facility] | | | | | | [address] | | | | | | | [...] LVH, diastolic function abnormal, | | | [place] visually estimates LVEF 50-55%. 3. Aortic valve [...] | Mild concentric LVH, diastolic function abnormal, [place] visually | | | estimates LVEF 50-55%. [...] pressures of | | | 15-20mmHg. MEASUREMENTS Graphic Art Designer: | | | Authenticated by: Derrek Barnhart DO Report Date/Time: -- | | | [id number]:08 | | + + + + + [...] enlargement. Mild concentric LVH, diastolic function abnormal, [place] | | visually estimates LVEF 50-55%. 3. [...] | central venous pressures of 15-20mmHg. MEASUREMENTS Graphic Art Designer: | | DHAuthenticated by: Derrek Dockery Date/Time: -- [id number]:16:08 | | IMPRESSION: 1. See Dictation. A fib, paced rhythm. 2. Cor Pulmonale. Severe RV | | enlargement, systolic function preserved, septal flattening suggestive of chronic RV | | volume and pressure overload. Pacing catheter in RV. Moderate TR. IVC dilated and | | plethoric. Est systolic PAP 67-72mmHg, severe Pulmonary HTN. Severe bi-Atrial | | enlargement. Mild concentric LVH, diastolic function abnormal, [place] visually | | estimates LVEF 50-55%. 3. [...] | |MEASUREMENTS | | | | | |Graphic Art Designer: | |Authenticated by: Derrek Barnhart DO | |Report Date/Time: -- [id number]:16:08 | | | |IMPRESSION: | |1. See Dictation. A fib, paced rhythm. 2. Cor Pulmonale. Severe RV enlargement, systolic function preserved, septal flattening suggestive of chronic RV volume and pressure overload. Pacing catheter in RV. Moderate | |TR. IVC dilated and plethoric. Est | | systolic PAP 67-72mmHg, severe Pulmonary HTN. Severe bi-Atrial enlargement. Mild concent ormelia LVH, diastolic function abnormal, [place] visually estimates LVEF 50-55%. 3. Aortic valve [...]
--- OUTSIDE RECORDS SUMMARY | ~2019-10-20 | XMS | Encounter Summary ---
Demographics + + + | Address | [address] | | | [place] [address] | + + + | Home Phone | | + + + | Preferred Language | Unknown | + + + | Marital Status | | + + + | Anabaptism Affiliation | 1041 | + + + | Race | Unknown | + + + | Ethnic Group | Unknown | + + + Author + + + | Author | [facility] | | | and [place] | + + + | Organization | [facility] | | | [...] Team Providers + +------+ + | Care Automation Mechanic Name | Role | Phone | + +------+ + | Kushal Costa MD | PCP | | + +------+ + Reason for Visit + + + | Reason | Comments | + + + | Device Check | | | (Remote) | | + + + Encounter Details +--------+ + + + + | Date | Type | Department | Care Team | Description | +--------+ + + + + | 10/11/ | Procedure | [facility] | | Pacemaker | | 2019 | visit | CARDIOLOGY [place] | | | | | | [address] | | | | | | [place] | | | | | | [address] | | | | | | [phone] | | | +--------+ + + + [...] 2020 | [facility] | | [facility] [address] [facility] | | | | | | [address] [place], [place] | | | | | | [address] | | | | | | | [...] this encounter Results Device Interrogation - Remote (10/11/2019 8:00 AM PST) + + + | Narrative | Performed At | + + + | Marcus [facility] | [facility] | | LEONEL Cook 10/15/2019 7:31 PRIETOIAALYSIA REMOTE INTERROGATION | | | REPORT Name: Michael Joshi PCP: Kushal Costa MD : | | | 1940MRN: [id number] Primary cardiology provider: Sparkle | | | [facility] Primary electrophysiology provider: Angela Device | | | greige mender: [employer] Device type: Single chamber | | | [...]
--- OUTSIDE RECORDS SUMMARY | ~2019-10-20 | XMS | Encounter Summary ---
Demographics + + + | Address | [address] | | | [place] [address] | + + + | Home Phone | | + + + | Preferred Language | Unknown | + + + | Marital Status | | + + + | Worship Affiliation | 1041 | + + + | Race | Unknown | + + + | Ethnic Group | Unknown | + + + Author + + + | Author | [facility] | | | and [place] | + + + | Organization | [facility] | | [...] Team Providers + +------+ + | Care Bacteriologist Medical Name | Role | Phone | + [...] | Lumbar | [place], | [address] | | | | | radiculopath | Chris Storm MD | [place], | | | | | y | [address] | [place] | | | | | Procedures | [place] | [address] | | | | | [place] INJECT | [place], [place] | Phone: | | | | | ANES/STEROID | [address] | [phone] | | | | | FORAMEN | Phone: | Fax: | | | | | LUMBAR/SACRA | [phone] | [phone] | | | | | L [address] IMG | Fax: | | | | | | GUIDE ,1 | [phone] | | | | | | [place] | | | | | | | [...] + + | 07/13/ | Hospital | [facility] | [place], | Low back pain, | | 2017 | Encounter | MED CTR XRAY [address] | KOKI Vasquez [address] | unspecified back | | | | [address] [place] | [facility], | pain laterality, | | | | [place] [address] | [place] [address] | unspecified | | | | [phone] | [phone] | chronicity, with | | | | | | sciatica presence | | | | | Metal Technician, [place]s | unspecified; DDD | | | [...] | | | | | | [address] [place] [address] | | | | | | [address] | | | | | | | [...] + + | Performing | Address | City/State/[facility] | Phone Number | | [...]
--- OUTSIDE RECORDS SUMMARY | ~2019-10-20 | XMS | Encounter Summary ---
Demographics + + + | Address | [address] | | | [place] [address] | + + + | Home Phone | | + + + | Preferred Language | Unknown | + + + | Marital Status | | + + + | Rastafarian Affiliation | 1041 | + + + | Race | Unknown | + + + | Ethnic Group | Unknown | + + + Author + + + | Author | [facility] | | | and [place] | + + + | Organization | [facility] | | | [...] Team Providers + +------+ + | Care Program Manager Environmental Planning Name | Role | Phone | + +------+ + | Kushal Costa MD | PCP | | + +------+ + Encounter Details +--------+ + + + + | Date | Type | Department | Care Team | Description | +--------+ + + + + | 06/29/ | Orders Only | [facility] | Danny Gandara MD | | | 2017 | | NEPHROLOGY [place] | [address] [place] | | | | | [address] [place] | [address] [place], [place] | | | | | 160 [place], [place] | [address] | | | | | [address] | | | | | | [phone] | | | +--------+ + + + [...] 2020 | Visit | | [address] [facility] | | | | | | 160 [place] | | | | | | [address] | | | | | | | [...] | | | LAB | | | [place] | | | | | + + [...]
--- OUTSIDE RECORDS SUMMARY | ~2019-10-20 | XMS | Encounter Summary ---
Demographics + + + | Address | [address] | | | [place] [address] | + + + | Home Phone [...] Providers + +------+ + | Care Director Of Food And Beverage Services Name | Role | Phone | + +------+ + | Kushal Costa MD | PCP | | + +------+ + Encounter Details +--------+---------+ + + + | Date | Type | Department | Care Team | Description | +--------+---------+ + + + | 07/26/ | Office | [facility] | Danny Gandara MD | Anemia of chronic | | 2019 | Visit | NEPHROLOGY [place] | [address] [facility] | renal failure, stage | | | | [address] | [address] [place], [place] | 3 (moderate) (HCC) | | | | [address] [place] [address] | [address] | (Primary Dx); CKD | | | | [place], [place] | | (chronic kidney | | | | [address] | | disease), stage IV | | | | [phone] | | ([facility]); Electrolyte | | | | | | imbalance risk; | | | | | | Secondary | | | | | | hyperparathyroidism | | | | | | ([facility]); Vitamin D | | | | [...] 12 (L) 12/27/2018 LABPROT 286.2 (A) 11/20/2018 [id number] 06/29/2018 Assessment: Mr. Joshi is a [...] in 2 months. At that time, I beéln l decide whether any change to his [...] D before he comes back [facility]. Thank you Dr Costa for the opportunity to see this patient in F/U on an urgent basis tod ay as we are trying to prevent a hospitalization for severe electrolyte imbalance &/or sever e volume extremes. Please do not hesitate to call me at any time with questions or concerns. Truly yours, Danny Gandara MD [facility] documented in this enco unter Plan of Treatment +--------+ + + + + | Date | Type | Specialty | Care Team | Description | +--------+ + + + + | 11/29/ | Office | Nephrology | Danny Gandara MD | | | 2019 | Visit | | [address] [facility] | | | | | | [address] [place], [place] | | | | | | [address] | | | | | | | [...]
--- OUTSIDE RECORDS SUMMARY | ~2019-10-20 | XMS | Encounter Summary ---
Demographics + + + | Address | [address] | | | [place] [address] | + + + | Home Phone [...] Team Providers + +------+ + | Care Occupational Medicine Specialist Name | Role | Phone | + +------+ + | Kushal Costa MD | PCP | | + +------+ + Encounter Details +--------+ + + + + | Date | Type | Department | Care Team | Description | +--------+ + + + + | 11/07/ | Orders Only | [facility] | Danny Gandara MD | | | 2017 | | NEPHROLOGY [place] | [address] [place] | | | | | [address] [place] | [address] [place], [place] | | | | | 160 [place], [place] | [address] | | | | | [address] | | | | | | [phone] | | | +--------+ + + + [...] 2019 | Visit | | [address] [facility] | | | | | | [facility] | | | | | | [address] | | | | | | | [...] | EXTERNAL LAB: DORA | Routin | 11/07/2017 | | Results for this | | | e | 9:33 AM | | procedure are in the | | | | PST | | results section. | + +--------+ + + + | BASIC METABOLIC | Routin | 11/07/2017 | | Results for this | | PANEL | e | 9:33 AM | | procedure are in the | | | | PST | | results section. | + +--------+ + + + documented in this encounter Results External Lab: DORA (11/07/2017 9:33 AM PST) + + + + + + | Component | Value | Ref Range | Performed | Pathologist | | | | | At | Signature | + + + + + + | WBC | 6.4 | 4.5 - 11.0 10 | EXTERNAL | | | | | | LAB | | + + + + + + | RED CELL | 4.37 | 4.3 - 5.7 10 | EXTERNAL | | | COUNT | | | LAB | | + + + + + + | Hgb | 12.5 (A) | 13.5 - 18.0 | EXTERNAL | | | | | g/dL | LAB | | + + + + + + | Hematocrit, | 38.4 (A) | 41 - 50 % | EXTERNAL | | | POC | | | LAB | | + + + + + + | MCV | 87.9 | 81 - 99 fL | EXTERNAL [...] + + + + | Platelet | 180 | 140 - 440 K/ L | EXTERNAL | | | Count | | | LAB | | | Plasma | | | | | + + + + + + | RDW-CV | 15.9 (A) | 10.5 - 15.0 % | [...] + +---------+ + + Basic Metabolic Panel (11/07/2017 9:33 AM PST) + + + + + + | Component | Value | Ref Range | Performed | Pathologist | | | | | At | Signature | + + + + + + | Glucose, | 86 | 70 - 100 mg/dL | EXTERNAL | | | Fasting | | | LAB | | + + + + + + | BUN | 60 (A) | 6 - 23 mg/dL | EXTERNAL | | | | | | LAB | | + + + + + + | Creatinine | 2.01 (A) | 0.7 - 1.18 | EXTERNAL | | | | | mg/dL | LAB | | + + + + + + | BUN/Creatin | 29.9 (A) | 6.0 - 28.6 | EXTERNAL | | | ine Ratio | | | LAB | | + + + + + + | Calcium | 9.3 | 8.4 - 10.2 | EXTERNAL | [...] + + + | Cl | 97 | 95 - 112 mmol/L | EXTERNAL | | | | | | LAB | | + + + + + + | CO2 | 28 | 19 - 31 mmol/L | EXTERNAL | | | | | | LAB | | + + + + + + | Anion Gap | 18.6 | 7 - 21 mmol/L | EXTERNAL | | | | | | LAB | | + + + + + + | Estimated | 32 (A) | 60 mg/dL | EXTERNAL | [...]
--- OUTSIDE RECORDS SUMMARY | ~2019-10-20 | XMS | Encounter Summary ---
Demographics + + + | Address | [address] | | | [place] [address] | + + + | Home Phone | | + + + | Preferred Language | Unknown | + + + | Marital Status | | + + + | Latter-Day Affiliation | 1041 | + + + | Race | Unknown | + + + | Ethnic Group | Unknown | + + + Author + + + | Author | [facility] | | | and [place] | + + + | Organization | [facility] | | | and [...] Team Providers + +------+ + | Care Five Piece Expansion Maker Hand Name | Role | Phone | + [...] [place] | | | | | | [address] | | | | | | [phone] | | | +--------+ + + + [...] | | | | | | 160 [place], [place] | | | | | | [address] | | | | | | | [...] BISI | | LEONEL Cook 10/15/2019 7:31 PRIETOPAALYSIA REMOTE INTERROGATION | | | REPORT Name: Michael Joshi PCP: Kushal Costa MD : | | | 1940MRN: [id number] Primary cardiology provider: Sparkle | | | [facility] Primary electrophysiology provider: Angela Device | | | 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
--- OUTSIDE RECORDS SUMMARY | ~2019-10-20 | XMS | Encounter Summary ---
Demographics + + + | Address | [address] | | | [place] [address] | + + + | Home Phone | | + + + | Preferred Language | Unknown | + + + | Marital Status | | + + + | Jainism Affiliation | 1041 | + + + | Race | Unknown | + + + | Ethnic Group | Unknown | + + + Author + + + | Author | [facility] | | | and [place] | + + + | Organization | [facility] | | | [...] Team Providers + +------+ + | Care Lorry Weigher Name | Role | Phone | + +------+ + | Kushal Costa MD | PCP | | + +------+ + Encounter Details +--------+ + + + + | Date | Type | Department | Care Team | Description | +--------+ + + + + | 10/27/ | Orders Only | [facility] | Danny Gandara MD | | | 2017 | | NEPRHOLOGY [place] | [address] | | | | | [address] | [address] [place], [place] | | | | | [address] [place], [place] | [address] | | | | | [address] | | | | | | [phone] | | | +--------+ + + + [...] 2019 | Visit | | [address] [facility] | | | | | | 160 [place] | | | | | | [address] | | | | | | | [...] | EXTERNAL LAB: CBC | Routin | 10/27/2017 | | Results for this | | | e | 12:00 AM | | procedure are in the | | | | PST | | results section. | + +--------+ + + + | URINALYSIS WITH | Routin | 10/27/2017 | | Results for this | | MICROSCOPIC IF | e | 12:00 AM | | procedure are in the | | INDICATED | | PST | | results section. | + +--------+ + + + | PROTEIN/CREATININE | Routin | 10/27/2017 | | Results for this | | RATIO, URINE | e | 12:00 AM | | procedure are in the | | | | PST | | results section. | + +--------+ + + + | URIC ACID | Routin | 10/27/2017 | | Results for this | | | e | 12:00 AM | | procedure are in the | | | | PST | | results section. | + +--------+ + + + | MAGNESIUM | Routin | 10/27/2017 | | Results for this | | | e | 12:00 AM | | procedure are in the | | | | PST | | results section. | + +--------+ + + + | BASIC METABOLIC | Routin | 10/27/2017 | | Results for this | | PANEL | e | 12:00 AM | | procedure are in the | | | | PST | | results section. | + +--------+ + + + documented in this encounter Results Protein/Creatinine Ratio, Urine (10/27/2017 12:00 AM PST) + +-------+ + + + | Component | Value | Ref Range | Performed | Pathologist | | | | | At | Signature | + +-------+ + + + | Protein/Cre | 132.7 | 0 - 150 | EXTERNAL | [...] + + Urinalysis with Microscopic if Indicated (10/27/2017 12:00 AM PST) + + + + [...] + +---------+ + + External Lab: CBC (10/27/2017 12:00 AM PST) + + + + + + | Component | Value | Ref Range | Performed | Pathologist | | | | | At | Signature | + + + + + + | WBC | 5.5 | 4.5 - 11.0 10 | EXTERNAL | | | | | | LAB | | + + + + + + | RED CELL | 4.25 (A) | 4.3 - 5.7 10 | EXTERNAL | | | COUNT | | | LAB | | + + + + + + | Hgb | 12.0 (A) | 13.5 - 18.0 | EXTERNAL | | | | | g/dL | LAB | | + + + + + + | Hematocrit, | 37.0 (A) | 41 - 50 % | EXTERNAL | | | POC | | | LAB | | + + + + + + | MCV | 87.4 | 81 - 99 fL | EXTERNAL | | | | | | LAB | | + + + + + + | MCH | 28 | 27 - 33 pg | EXTERNAL | | | | | | LAB | | + + + + + + | MCHC | 32 | 30 - 36 g/dL | EXTERNAL | | | | | | LAB | | + + + + + + | Platelet | 194 | 140 - 440 K/ L | EXTERNAL | | | Count | | | LAB | | | Plasma | | | | | + + + + + + | RDW-CV | 15.4 (A) | 10.5 - 15.0 % | [...] | + +---------+ + + Uric Acid (10/27/2017 12:00 AM PST) + + + + + + | Component | Value | Ref Range | Performed | Pathologist | | | | | At | Signature | + + + + + + | Uric Acid | 13.6 (A) | 4.4 - 7.6 | EXTERNAL [...] | | + +---------+ + + Magnesium (10/27/2017 12:00 AM PST) + +-------+ + + + | Component | Value | Ref Range | Performed | Pathologist | | | | | At | Signature | + +-------+ + + + | Magnesium | 2.3 | 1.7 - 2.5 mg/dL | EXTERNAL [...] + +---------+ + + Basic Metabolic Panel (10/27/2017 12:00 AM PST) + + + + [...] + + + + | BUN | 95 (A) | 6 - 23 mg/dL | EXTERNAL | | | | | | LAB | | + + + + + + | Creatinine | 2.51 (A) | 0.7 - 1.18 | EXTERNAL | | | | | mg/dL | LAB | | + + + + + + | BUN/Creatin | 37.8 (A) | 6.0 - 28.6 | EXTERNAL | | | ine Ratio | | | LAB | | + + + + + + | Calcium | 9.0 | 8.4 - 10.2 | EXTERNAL | [...] + + + | Cl | 94 (A) | 95 - 112 mmol/L | EXTERNAL | | | | | | LAB | | + + + + + + | CO2 | 29 | 19 - 31 mmol/L | EXTERNAL | | | | | | LAB | | + + + + + + | Anion Gap | 18.2 | 7 - 21 mmol/L | EXTERNAL | | | | | | LAB | | + + + + + + | Estimated | 25 (A) | 60 mg/dL | EXTERNAL | [...]
--- OUTSIDE RECORDS SUMMARY | ~2019-10-20 | XMS | Encounter Summary ---
Demographics + + + | Address | [address] | | | [place] [address] | + + + | Home Phone | | + + + | Preferred Language | Unknown | + + + | Marital Status | | + + + | Synagogue Affiliation | 1041 | + + + [...] Providers + +------+ + | Care Health Editor Name | Role | Phone | + [...] + + | 09/06/ | Telephone | [facility] | Danny Gandara MD | Other (Facility call | | 2019 | | NEPHROLOGY [place] | [address] [place] | ) | | | | [address] [place] | [address] [place], [place] | | | | | 160 [place], [place] | [address] | | | | | [address] | | | | | | [phone] | | | +--------+ + + + [...] 2019 | Visit | | [address] [facility] | | | | | | [address] [facility] | | | | | | [address] | | | | | | | [...]
--- OUTSIDE RECORDS SUMMARY | ~2019-10-20 | XMS | Encounter Summary ---
Demographics + + + | Address | [address] | | | [place] [address] | + + + | Home Phone | | + + + | Preferred Language | Unknown | + + + | Marital Status | | + + + | Religion Affiliation | 1041 | + + + [...] Team Providers + +------+ + | Care Insurance Clerk Name | Role | Phone | + +------+ + | Kushal Costa MD | PCP | | + +------+ + Encounter Details +--------+ + + + + | Date | Type | Department | Care Team | Description | +--------+ + + + + | 12/19/ | Orders Only | [facility] | Danny Gandara MD | | | 2017 | | NEPHROLOGY [place] | [address] [place] | | | | | [address] [place] | [address] [place], [place] | | | | | [address] [place], [place] | [address] | | | | | [address] | | | | | | [phone] | | | +--------+ + + + [...] | | | | | | [address] [facility] | | | | | | [address] | | | | | | | [...] | EXTERNAL LAB: CBC | Routin | 12/19/2017 | | Results for this | | | e | 10:34 AM | | procedure are in the | | | | PST | | results section. | + +--------+ + + + | URIC ACID | Routin | 12/19/2017 | | Results for this | | | e | 10:34 AM | | procedure are in the | | | | PST | | results section. | + +--------+ + + + | PARATHYROID HORMONE, | Routin | 12/19/2017 | | Results for this | | INTACT | e | 10:34 AM | | procedure are in the | | | | PST | | results section. | + +--------+ + + + | RENAL FUNCTION PANEL | Routin | 12/19/2017 | | Results for this | | | e | 10:34 AM | | procedure are in the | | | | PST | | results section. | + +--------+ + + + documented in this encounter Results External Lab: CBC (12/19/2017 10:34 AM PST) + + + + + + | Component | Value | Ref Range | Performed | Pathologist | | | | | At | Signature | + + + + + + | WBC | 6.8 | 4.5 - 11.0 10 | EXTERNAL | | | | | | LAB | | + + + + + + | RED CELL | 4.25 (A) | 4.3 - 5.7 10 | EXTERNAL | | | COUNT | | | LAB | | + + + + + + | Hgb | 12.8 (A) | 13.5 - 18.0 | EXTERNAL | | | | | g/dL | LAB | | + + + + + + | Hematocrit, | 38.5 (A) | 41 - 50 % | EXTERNAL | | | POC | | | LAB | | + + + + + + | MCV | 91.7 | 81 - 99 fL | EXTERNAL [...] + + + + | Platelet | 206 | 140 - 440 K/ L | EXTERNAL | | | Count | | | LAB | | | Plasma | | | | | + + + + + + | RDW-CV | 18.4 (A) | 10.5 - 15.0 % | [...] | + +---------+ + + Uric Acid (12/19/2017 10:34 AM PST) + +-------+ + + + | Component | Value | Ref Range | Performed | Pathologist | | | | | At | Signature | + +-------+ + + + | Uric Acid | 7.6 | 4.4 - 7.6 | EXTERNAL | [...] + +---------+ + + Parathyroid Hormone, Intact (12/19/2017 10:34 AM PST) + + + + + + | Component | Value | Ref Range | Performed | Pathologist | | | | | At | Signature | + + + + + + | PTH INTACT | 165.6 (A) | 15 - 65 pg/mL | [...] + +---------+ + + Renal Function Panel (12/19/2017 10:34 AM PST) + + + + + + | Component | Value | Ref Range | Performed | Pathologist | | | | | At | Signature | + + + + + + | Glucose, | 88 | 70 - 100 mg/dL | EXTERNAL | | | Fasting | | | LAB | | + + + + + + | BUN | 50 (A) | 6 - 23 mg/dL | EXTERNAL | | | | | | LAB | | + + + + + + | Creatinine | 1.89 (A) | 0.7 - 1.18 | EXTERNAL | | | | | mg/dL | LAB | | + + + + + + | PHOSPHORUS | | mg/dL | EXTERNAL | | | [...] + + | K | 3.8 | 3.6 - 5.1 | EXTERNAL | [...] + + + | Anion Gap | 13.8 | 7 - 21 mmol/L | EXTERNAL | | | | | | LAB | | + + + + + + | eGFR if not | | | EXTERNAL | | | | | | LAB | | | [place] | | | | | + + + + + + | Phosphorus, | 3.4 | 2.5 - 5.0 | EXTERNAL | | | Inorganic | | | LAB | | + + + + + + | BUN/Creatin | 26.5 | 6.0 - 28.6 | EXTERNAL | | | ine Ratio | | | LAB | | + + + + + + | Calcium | 9.1 | 8.4 - 10.2 | EXTERNAL | | | | | mg/dL | LAB | | + + + + + + | Estimated | 35 (A) | 60 mg/dL | EXTERNAL | [...]
--- OUTSIDE RECORDS SUMMARY | ~2019-10-20 | XMS | Encounter Summary ---
Demographics + + + | Address | [address] | | | [place] [address] | + + + | Home Phone | | + + + | Preferred Language | Unknown | + + + | Marital Status | | + + + | Anabaptism Affiliation | 1041 | + + + | Race | Unknown | + + + | Ethnic Group | Unknown | + + + Author + + + | Author | [facility] | | | and [place] | + + + | Organization | [facility] | | | and [...] Providers + +------+ + | Care Child Care Nurse Name | Role | Phone | + [...] + + | 09/06/ | Telephone | [facility] | Danny Gandara MD | Other (Facility call | | 2019 | | NEPHROLOGY [place] | [address] [place] | ) | | | | [address] [place] | [address] [place], [place] | | | | | 160 [place], [place] | [address] | | | | | [address] | | | | | | [phone] | | | +--------+ + + + [...] 2019 | Visit | | [address] [facility] | | | | | | [address] [facility] | | | | | | [address] | | | | | | | [...]
--- OUTSIDE RECORDS SUMMARY | ~2019-10-20 | XMS | Encounter Summary ---
Demographics + + + | Address | [address] | | | [place] [address] | + + + | Home Phone [...] Author + + + | Author | [facility] | + + + | Organization | [facility] | + + + | Address | Unknown | + + + | Phone | Unavailable | + + + Support + + +---------+ + | Name | Relationship | Address | Phone | + + +---------+ + | None None | ECON | Unknown | Unavailable | + + +---------+ + Care Team Providers + +------+ + | Care Process Safety Management Engineer Name | Role | Phone | + +------+ + PCP | Unavailable | + +------+ + Encounter Details +--------+ + + + + | Date | Type | Department | Care Team | Description | +--------+ + + + + | 01/13/ | Documentati | Neurology at | Sy Goodwin, | | | 2007 | on | [facility] & | MD Angeles Fox | | | | | [address] | [place], [place] | | | | | Rj Fox Mailcode: | [address] | | | | | [facility] | [phone] | | | | | Health and Healing, | | | | | | | | | | | | [place], [place] | | | | | | [address] | | | | | | [phone] | | | +--------+ + + + [...]
--- OUTSIDE RECORDS SUMMARY | ~2019-10-20 | XMS | Clinical Summary ---
Demographics + + + | Address | [address] | | | [place] [address] | + + + | Home Phone | | + + + | Preferred Language | Unknown | + + + | Marital Status | | + + + | Latter Day Affiliation | 1041 | + + + | Race | Unknown | + + + | Ethnic Group | Unknown | + + + Author + + + | Author | [facility] | | | and [place] | + + + | Organization | [facility] | | [...] Team Providers + +------+ + | Care Tax Economist Name | Role | Phone | + [...] + + + | Overview: Problem List Filler Picker Utility | + + + + + [...] | | | | | ([facility]); Vitamin D | | | | | | deficiency | +--------+ + + + + | 07/26/ | Orders Only | Nephrology | Danny Gandara MD | CKD (chronic kidney | | 2018 | | | | disease), stage IV | | | | | | ([facility]) (Primary Dx) | +--------+ + + + + | 07/26/ | Documentati | Nephrology | Jatinder, | | | 2018 | on | | Bandar Cannon | | | | | | Program Clinician | | +--------+ + + + + [...] 2019 | Visit | | [facility] [address] [facility] | | | | | | [address] [facility] | | | | | | [phone] | | | | | | | [...] Costa MD : | | | 1940MRN: [id number] Primary cardiology provider: Sparkle | | | [facility] Primary electrophysiology provider: Angela [employer] | | | 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: [employer] Device type: Single chamber | | | [...] +--------+ +---------+--------+ | MEDICARE | MEDICA | [id number] | 10/20/19 | [phone] | | Medica | | | RE | | 05-Pre | 5 | | re | | | PART A | | sent | | | | | | AND B | | | | | | + +--------+ +--------+ +---------+--------+ | MEDICARE | MEDICA | [id number] | 10/20/19 | [phone] | | Medica [...] lissy | | | 1 (Home) | [phone] | + +--------+ +--------+ + + | Michael Joshi | Person | Self | [birth year] | [address] | | | al/Fam | | 1941 | [phone] | [place], [place] | | | lissy | | | 1 (Home) | [phone] | + +--------+ +--------+ + + Advance Directives + + + + + | Type | Date Recorded | Patient | Explanation | | | | Box Inspector | | + + + + + | Power of | | | | | Granulator Operator | | | | + + + + + | Advance | | | | | Directive | | | | + + + + +
--- OUTSIDE RECORDS SUMMARY | ~2019-10-20 | XMS | Encounter Summary ---
Demographics + + + | Address | [address] | | | [place] [address] | + + + | Home Phone | | + + + | Preferred Language | Unknown | + + + | Marital Status | | + + + | Jehovah'S Witness Affiliation | 1041 | + + + [...] Team Providers + +------+ + | Care Scaffold Erector Name | Role | Phone | + [...] [address] | | | | | [place], | [place], [place] | | | | | [place] [address] | [address] | | | | | [phone] | | | +--------+ + + + [...] [place] | | | | | | [address] | | | | | | | [...]
--- OUTSIDE RECORDS SUMMARY | ~2019-10-20 | XMS | Encounter Summary ---
Demographics + + + | Address | [address] | | | [place] [address] | + + + | Home Phone | | + + + | Preferred Language | Unknown | + + + | Marital Status | | + + + | Caodaism Affiliation | 1041 | + + + | Race | Unknown | + + + | Ethnic Group | Unknown | + + + Author + + + | Author | [facility] | | | and [place] | + + + | Organization | [facility] | | [...] Team Providers + +------+ + | Care Materials Director Name | Role | Phone | [...] | | [address] | [address] [place] | | | | | [place], [place] | [address] | | | | | [address] | | | | | | [phone] | | | +--------+ + + + [...] 2019 | Visit | | [address] [facility] | | | | | | [facility] | | | | | [address] | | | | | | | [...] 8.22 cm AR Dec | | | [place]: 1.93 m/s2 AR Dec Time: 2330.38 ms [...] | maxP.04 mmHg TR Vmax: 3.77 m/s Iron Erector: MIGEL | | | Authenticated by: Sparkle Brady Report Date/Time: 01-24-2017 | | | 00:37:15 | | + + + + + | Procedure Note | + + | Edgardo Piper Conversion - 06/10/2019 6:55 PM PDT Patient Name: Kel Joshi of | | : 1940 Performing Physician: Sparkle | | [facility] INDICATIONS------ | | -----Heart failure CONCLUSIONS 1. [...] cmLVIDd: 5.77 cmLVPWd: 1.18 cmLVOT Area: 3.98 ha1FLKL Diam: 2.25 cm%FS: | | 22.85 %EF(Teich): [...] | Index (A-L): 63.36 ml/m2LAAs A2C: 31.84 [id number] A-L A2C: 132.77 mlLALs A2C: | | 6.48 cmLAAs A4C: 34.80 [id number] A-L A4C: 118.78 mlLALs A4C: 8.65 cmRAAs: 49.96 | | [id number] A-L: 259.12 mlRAESV MOD: 251.38 mlRALs: 8.22 cmAR Dec [place]: 1.93 | | m/s2AR Dec Time: 2330.38 msAR maxP.34 mmHgAR PHT: 675.81 msAR Vmax: 4.50 | | m/Davie maxP.00 mmHgAV meanP.60 mmHgAV Vmax: 1.58 m/Davie Vmean: 0.98 m/Davie | | VTI: 29.76 cmAVA Vmax: 2.61 cm2AVA (VTI): 2.12 [id number] Vmax: 0.00 cm2/m2AVAI | | (VTI): 0.00 cm2/m2LVOT maxP.35 mmHgLVOT meanP.30 mmHgLVSI Dopp: 27.56 | | ml/m2LVSV Dopp: 63.13 mlLVOT Vmax: 1.03 m/sLVOT Vmean: 0.68 m/sLVOT VTI: 15.85 | | cmMR dp/dt: 1864.01 mmHg/sMV A Roberto: 0.02 m/sMV DecT: 162.94 msMV E Roberto: 1.53 | | m/sMV E/A Ratio: 66.42MV PHT: 47.25 msMVA By PHT: 4.65 gh8Wdxnzn e': 0.05 | | m/sSeptal E/e': 30.24Lateral e': 0.10 m/sLateral E/e': 14.53RAP: 20 mmHgRVSP: | | 77.04 mmHgTR maxP.04 mmHgTR Vmax: 3.77 m/s Iron Erector: GALLOuthenticated by: | | Sparkle NavarrobrookparkraReport Date/Time: 01-24-2017 00:37:15 IMPRESSION: 1. The left [...] | |RALs: 8.22 cm | |AR Dec [place]: 1.93 m/s2 | |AR Dec Time: 2330.38 [...] |TR Vmax: 3.77 m/s | | | |Iron Erector: MIGEL | |Authenticated by: Sparkle Brady | [...]
--- OUTSIDE RECORDS SUMMARY | ~2019-10-20 | XMS | Encounter Summary ---
Demographics + + + | Address | [address] | | | [place] [address] | + + + | Home Phone | | + + + | Preferred Language | Unknown | + + + | Marital Status | | + + + | Mosque Affiliation | 1041 | + + + [...] Team Providers + +------+ + | Care Section Hand Helper Name | Role | Phone | + +------+ + | Amee Urrutia MD | PCP | | + +------+ + Encounter Details +--------+ + + + + | Date | Type | Department | Care Team | Description | +--------+ + + + + | 12/27/ | Hospital | [facility] | Enriqueta Reese, | Hypervolemia, | | 2019 - | Encounter | [facility] | MD [address] | unspecified | | | | CARE FLOOR [address] | [place] [address] | hypervolemia type | | 01/08/ | | [address] | [phone] | | | 2018 | | [place], [place] | | | | | | [address] | | | | | | [phone] | | | +--------+ + + + [...] 01/09/19610 Date of Service: 01/08/19929 Status: Signed Kennel Supervisor: Nellie Clinton MD (Physician) Related Notes: Original Note by Nellie Clinton MD (Physician) filed at 01/08/19935 [facility] Service: Hospitalist Physician Discharge Summary Patient [...] discussed with Dr. Gandara, the patient's primary hospital housekeeper. He will check his bloo d pressure [...] patient will follow u p outpatient with sampler and test preparer. Wound care instructions have been given. Plan [...] up: Amee Urrutia MD [address] [place] [address] Schedule an appointment as soon as possible for a visit in 3 days resume care with all providers you were seeing prior to admission Danny Gandara MD [address] [phone] Schedule an appointment as soon as possible [...] summary. This entry has been created using Power2Switch Speech Recognition software and [employer]. The entry has been reviewed and there [...] 1054 Date of Service: 01/08/191051 Status: Signed Kennel Supervisor: Lyle Vences RN (Registered Nurse) 10:52 AM Disposition: Home with [facility] Transportation:spouse Face to face order added to AVS and has been faxed to [facility], confirmed with Kristine that she r eceived [...] Date of Service: 01/08/19 1023 Status: Signed Kennel Supervisor: Francy Camacho RN (Registered Nurse) IV removed, [...] 01/08/193 Date of Service: 01/08/19411 Status: Signed Kennel Supervisor: Anna Tran RN (Registered Nurse) No acute [...] Date of Service: 01/07/19 1324 Status: Signed Kennel Supervisor: Nellie Clinton MD (Physician) [facility] Service: Hospitalist Progress Note Hospital Day: [...] PM This entry has been created using Power2Switch Speech Recognition software and [employer]. The entry has been reviewed and there may still exist sound alike word errors. onversion Trans action, Provider Unknown - 01/07/2019 1:00 PM PDT Progress Notes by José Miguel Hylton at 01/07/19 1300 Author: José Miguel Hylton Service: (none) Author Type: Filed: 01/07/19 1310 Date of Service: 01/07/19 1300 Status: Addendum Kennel Supervisor: José Miguel Hylton () Related Notes: Original Note by José Miguel Hylton (Millinery Blocker) filed at 01/07/19 4009 Visit d/t LOS. Met with Pt and [...] Date of Service: 01/07/19 1017 Status: Signed Kennel Supervisor: Lyle Vences RN (Registered Nurse) 10:17 AM Michael and his would prefer for him to go home rather than [facility]. I sent referral to [facility]. They have had him before and will accept him. onver sarah Transaction, Provider Unknown - 01/07/2019 9:45 AM PDT Therapy Progress Note by Zak Walden PTA at 01/07/19 0945 Author: Zak Walden PTA Service: (none) Author Type: Manager Drive Filed: 01/07/19 1021 Date of Service: 01/07/19 0945 Status: Signed Kennel Supervisor: Zak Walden PTA (Manager Drive) PHYSICAL THERAPY TREATMENT NOTE PT Received On: [...] Summary Comments: Pt supine in bed when CUSTOMER FIELD REPRESENTATIVE arrives, agreeable to therapy. therapy focused on [...] Date of Service: 01/07/19 0300 Status: Signed Kennel Supervisor: Anna Tran RN (Registered Nurse) No acute changes from previous shift. End of shift audit and 24H chart check completed. Anna Tran RN onver sarah Transaction, Provider Unknown - 01/06/2019 4:31 PM PDT Progress Notes by Hyun Irvin RN at 01/06/19 1631 Author: Hyun Irvin RN Service: (none) Author Type: Registered Nurse Filed: 01/06/19 1633 Date of Service: 01/06/19 163 Status: Signed Kennel Supervisor: Hyun Irvin RN (Registered Nurse) Pt hypotensive (71/50) not having any sympyoms. 500cc bolus given. BP now 99/55. BLE dressi ngs removed and to be replaced by wound care tomorrow.End of shifts audits complete Hyun noel RN onver sarah Transaction, Provider Unknown - 01/06/2019 3:17 PM PDT Case Management by Lyle Vences RN at 01/06/19 6337 Author: Lyle Vences RN Service: (none) Author Type: Registered Nurse Filed: 01/06/19 1518 Date of Service: 01/06/197 Status: Signed Kennel Supervisor: Lyle Vences RN (Registered Nurse) 3:17 PM Discussed patient with Dr. Clinton. Michael is accepted to [facility] as soon as he is med ically ready and cleared by nephrology. onver sarah Transaction, Provider Unknown - 01/06/2019 3:07 PM PDT Progress Notes by Gabby Aguayo RN at 01/06/19 4017 Author: Gabby Aguayo RN Service: Wound/Ostomy Care Author Type: Registered Nurse Filed: 01/06/19 1509 Date of Service: 01/06/19 1507 Status: Signed Kennel Supervisor: Gabby Aguayo RN (Registered Nurse) TC received [...] Note by Deneen Mera RN at 01/06/19 7542 Author: Deneen Mera RN Service: (none) Author Type: Registered Nurse Filed: 01/06/19 1146 Date of Service: 01/06/19 7153 Status: Signed Kennel Supervisor: Deneen Mera RN (Registered Nurse) Called patient's spouse and updated on status. Deneen Mera RN onver sarah Transaction, Provider Unknown - 01/06/2019 11:44 AM PDT Therapy Progress Note by Zak Walden PTA at 01/06/19 1144 Author: Zak Walden PTA Service: (none) Author Type: Manager Drive Filed: 01/06/19 1220 Date of Service: 01/06/19 1144 Status: Signed Kennel Supervisor: Zak Walden PTA (Manager Drive) PHYSICAL THERAPY TREATMENT NOTE PT Received On: 01/06/19 Reason for Treatment: Deconditioning Requires PT Follow Up: Yes Recommendations: SNF Plan Treatment/Interventions: Continue per Primary PT POC Progress: Progressing toward goals Summary Comments: pt supine in bed when CUSTOMER FIELD REPRESENTATIVE arrived, agreeable to therapy. Therapy focused on [...] Date of Service: 01/06/19 1134 Status: Signed Kennel Supervisor: Deneen Mera RN (Registered Nurse) Bedside report given to LEONEL Purvis. Deneen Mera RN Nellie Mahajan MD - 01/06/2019 9:37 AM PDTFormatting of this note might be different from t david original. Progress Notes by Nellie Clinton MD at 01/06/19 8956 Author: Nellie Clinton MD Service: Hospitalist Author Type: Physician Filed: 01/06/19 1510 Date of Service: 01/06/19 09 Status: Signed Kennel Supervisor: Nellie Clinton MD (Physician) [facility] Service: Hospitalist Progress Note Hospital Day: [...] LIST Principal Problem: IZZY (acute kidney injury) ([facility]) Active Problems: CKD (chronic kidney disease) stage 3, GFR 30-59 ml/min ([facility]) Essential hypertension, benign Bilateral lower extremity edema Chronic atrial fibrillation ([facility]) Cardiac pacemaker in situ NEETU (obstructive sleep apnea) Pulmonary hypertension ([facility]) Right heart failure ([facility]) Chronic diastolic heart failure ([facility]) ASSESSMENT & PLAN Shortness of breath. Resolved. [...] AM This entry has been created using Power2Switch Speech Recognition software and [employer]. The entry has been reviewed and there may still exist sound alike word errors. onversion Trans action, Provider Unknown - 01/06/2019 6:17 AM PDT Nurse Progress Note by Caryn Polanco RN at 01/06/19616 Author: Caryn Polanco RN Service: (none) Author Type: Registered Nurse Filed: 01/06/19616 Date of Service: 01/06/19616 Status: Signed Kennel Supervisor: Caryn Polanco RN (Registered Nurse) A&Ox4. Pt remains on RA. No acute changes during shift. 24 hour chart check and end of shift review completed. Caryn Polanco RN onver sarah Transaction, Provider Unknown - 01/05/2019 3:46 PM PDT Progress Notes by Dayna Roy Online Publisher at 01/05/19 1546 Author: Julio Saueretic Intern Service: (none) Author Type: Registered gagandeepsmiley Filed: 01/05/191546 Date of Service: 01/05/191545 Status: Attested Kennel Supervisor: Julio Saueretic Intern (Registered Dietitian) Cosigner: Jacob baron RD at 01/05/19 1548 Attestation signed by Jacob Diaz RD at 01/05/[address] 01/05/19 7696 Subjective Timepoint Admit Pt c/o Pt triggered for screening secondary to LOS 8. Pt presented to [facility] with SOB and ang darcy. D/C [...] pt has followed RD in past at [facility], doesn't cook with salt, uses Mrs. [...] Low Follow up date 01/12/19 Dayna Roy, Online Publisher onver sarah Houstonaction, Provider Unknown - 01/05/2019 3:05 PM PDT Progress Notes by Pedrito Crane RPH at 01/05/19 5604 Author: Pedrito Crane RPH Service: Pharmacy Author Type: Pharmacist Filed: 01/05/19 1505 Date of Service: 01/05/19 1505 Status: Signed Kennel Supervisor: Pedrito Crane RPH (Pharmacist) Rx CHF Medication [...] Date of Service: 01/05/19 1033 Status: Signed Kennel Supervisor: Nellie Clinton MD (Physician) [facility] Service: Hospitalist Progress Note Hospital Day: [...] AM This entry has been created using Power2Switch Speech Recognition software and [employer]. The entry has been reviewed and there may still exist sound alike word errors. onversion Trans action, Provider Unknown - 01/05/2019 10:10 AM PDT Case Management by Lyle Vences RN at 01/05/19 1010 Author: Lyle Vences RN Service: (none) Author Type: Registered Nurse Filed: 01/05/19 1047 Date of Service: 01/05/19 1010 Status: Addendum Kennel Supervisor: Lyle Vences RN (Registered Nurse) Related Notes: [...] Date of Service: 01/05/19 06 Status: Signed Kennel Supervisor: Angie Bowen RN (Registered Nurse) Pt A&Ox4, [...] 01/04/192217 Date of Service: 01/04/192209 Status: Signed Kennel Supervisor: Shar Dawson MD (Physician) [facility] Service: Hospitalist Progress Note Pt: Michael Joshi AGE/SEX: 78 y.o. male ROOM: [facility]/7114-1 : 1940 PCP: AMEE URRUTIA ADMIT DATE: [...] other chronic comorbidities who p resents to [facility] ER from [facility] on 12/27 for acute dyspnea/anginal equivalent. Subsequently: [...] not d/c'd. He is accepted to a [facility] and also he does get unaboots changed [...] hours. No results for input(s): PHART, PO2ART, BWN2YAV, U8NSJXJC, BEART in the last 168 hours. No results for input(s): APTT, INR, PTT in the last 168 hours. No results for input(s): TSH, T3FREE, FREET4 in the last 168 hours. No results for input(s): CKTOTAL, TROPONINI, TROPONINT, CKMBINDEX in the last 168 hours. Results No results found for the last 72 hours. RADIOLOGY: Me Myocardial Perfusion Spect (stress And Rest) Result [...] heart failure (HCC) Chronic systolic heart failure ([facility]) ASSESSMENT & PLAN 1. Acute respiratory distress [...] and managing patient and counseling/coordination. Dictation software, Geron, used which may contain error for similar [...] Date of Service: 01/04/19 1432 Status: Signed Kennel Supervisor: Pablo Larson RN (Registered Nurse) Patient had [...] Date of Service: 01/04/19 09 Status: Addendum Kennel Supervisor: Louise Mancilla RN (Registered Nurse) Related Notes: Original Note by Louise Mancilla RN (Registered Nurse) filed at 01/04/19 1021 0900: called Jl at [facility]- no answer, left voice mail. 1015: called [facility] again- was transferred to [facility] again- no answer. I called back an d asked if there was another way to get a hold of him. Raine whom answered the phone said that she will try to track him down and have him call me back. 1130: Akil at [facility] called back and said they can accept [...] 01/04/19624 Date of Service: 01/04/19624 Status: Signed Kennel Supervisor: Angie Bowen RN (Registered Nurse) Pt A&Ox4, VSS, no acute changes from previous shift. Chart check complete. Angie cunningham RN onver sarah Transaction, Provider Unknown - 01/03/2019 5:01 PM PDT Nurse Progress Note by Gabby Groves RN at 01/03/191700 Author: Gabby Groves RN Service: (none) Author Type: Registered Nurse Filed: 01/03/191701 Date of Service: 01/03/191700 Status: Signed Kennel Supervisor: Gabby Stump, RN (Registered Nurse) Pt stable [...] Service: Hospitalist Author Type: Physician Filed: 01/03/19 1733 Date of Service: 01/03/19 1012 Status: Signed Kennel Supervisor: Shar Dawson MD (Physician) [facility] Service: Hospitalist Progress Note Pt: Michael Joshi AGE/SEX: 78 y.o. male ROOM: [facility]7114- : 1940 PCP: AMEE URRUTIA ADMIT DATE: [...] other chronic comorbidities who p resents to [facility] ER from [facility] on 12/27 for acute dyspnea/anginal equivalent. SUBJECTIVE: [...] hours. No results for input(s): PHART, PO2ART, HQO6PYN, L6INEROJ, BEART in the last 168 hours. No results for input(s): APTT, INR, PTT in the last 168 hours. No results for input(s): TSH, T3FREE, FREET4 in the last 168 hours. No results for input(s): CKTOTAL, TROPONINI, TROPONINT, CKMBINDEX in the last 168 hours. Results No results found for the last 72 hours. RADIOLOGY: Me Myocardial Perfusion Spect (stress And Rest) Result [...] heart failure (HCC) Chronic systolic heart failure ([facility]) ASSESSMENT & PLAN 1. Acute respiratory distress [...] and managing patient and counseling/coordination. Dictation software, Geron, used which may contain error for similar [...] 01/03/19617 Date of Service: 01/03/19616 Status: Signed Kennel Supervisor: Angie Bowen RN (Registered Nurse) Pt A&Ox4, VSS. No acute changes from previous shift. Chart check complete. Angie mcintosh RN Shar Mehta MD - 01/02/2019 9:58 AM PDT Progress Notes by Shar Dawson MD at 01/02/19957 Author: Shar Dawson MD Service: Hospitalist Author Type: Physician Filed: 01/02/19 1630 Date of Service: 01/02/19957 Status: Signed Kennel Supervisor: Shar Dawson MD (Physician) [facility] Service: Hospitalist Progress Note Pt: Michael [...] other chronic comorbidities who p resents to [facility] ER from [facility] on 12/27 for acute dyspnea/anginal equivalent. SUBJECTIVE: [...] hours. No results for input(s): PHART, PO2ART, UEI0MJZ, U4GCZIBC, BEART in the last 168 hours. No results for input(s): APTT, INR, PTT in the last 168 hours. Recent Labs Lab 12/27/18 05 TSH 1.500 Recent Labs Lab 12/27/18 0751 12/27/18516 TROPONINI 0.046* 0.048* Results No results found for the last 72 hours. RADIOLOGY: Me Myocardial Perfusion Spect (stress And Rest) Result [...] heart failure (HCC) Chronic systolic heart failure ([facility]) ASSESSMENT & PLAN 1. Acute respiratory distress [...] and managing patient and counseling/coordination. Dictation software, Geron, used which may contain error for similar [...] 01/02/1914 Date of Service: 01/02/19512 Status: Signed Kennel Supervisor: Angie Bowen RN (Registered Nurse) Pt A&Ox4, [...] 01/01/191750 Date of Service: 01/01/191750 Status: Signed Kennel Supervisor: Radha Chirinos RN (Registered Nurse) 12 hour chart check complete. No acute changes this shift onver sarah Transaction, Provider Unknown - 01/01/2019 10:36 AM PDT Case Management by Lyle Vences RN at 01/01/191035 Author: Lyle Vecnes RN Service: (none) Author Type: Registered Nurse Filed: 01/01/19 1037 Date of Service: 01/01/191035 Status: Signed Kennel Supervisor: Lyle Vences RN (Registered Nurse) 10:37 AM Called and updated [facility] admissions that Michael would not be ready for DC today. har Solorzano MD - 01/01/2019 9:41 AM PDT Progress Notes by Shar Dawson MD at 01/01/19940 Author: Shar Dawson MD Service: Hospitalist Author Type: Physician Filed: 01/01/194 Date of Service: 01/01/19940 Status: Signed Kennel Supervisor: Shar Dawson MD (Physician) [facility] Service: Hospitalist Progress Note Pt: Michael [...] other chronic comorbidities who p resents to [facility] ER from [facility] on 12/27 for acute dyspnea/anginal equivalent. SUBJECTIVE: [...] hours. No results for input(s): PHART, PO2ART, ITN4PDV, S5IGMXFQ, BEART in the last 168 hours. No results for input(s): APTT, INR, PTT in the last 168 hours. Recent Labs Lab 12/27/18 0517 TSH 1.500 Recent Labs Lab 12/27/18 0751 12/27/18 0517 TROPONINI 0.046* 0.048* Results No results found for the last 72 hours. RADIOLOGY: Me Myocardial Perfusion Spect (stress And Rest) Result [...] and managing patient and counseling/coordination. Dictation software, Geron, used which may contain error for similar [...] 01/01/19619 Date of Service: 01/01/19616 Status: Signed Kennel Supervisor: Lisha Cruz RN (Registered Nurse) Low blood [...] 12/31/182249 Date of Service: 12/31/182248 Status: Signed Kennel Supervisor: Lisha Cruz RN (Registered Nurse) Orthostatic bps Layin 87/55 Sittin 80/52 Standing 2246: 84/52 har Solorzano MD - 12/31/2018 7:59 PM PDT Progress Notes by Shar Dawson MD at 12/31/181958 Author: Shar Dawson MD Service: Hospitalist Author Type: Physician Filed: 12/31/182220 Date of Service: 12/31/181958 Status: Signed Kennel Supervisor: Shar Dawson MD (Physician) [facility] Service: Hospitalist Progress Note Pt: Michael Huttonjairon AGE/SEX: 78 y.o. male ROOM: [facility]7114-1 : 1940 PCP: AMEE URRUTIA ADMIT DATE: [...] other chronic comorbidities who p resents to [facility] ER from [facility] on 3/10 for acute dyspnea/anginal equivalent. SUBJECTIVE: [...] hours. No results for input(s): PHART, PO2ART, MRO2LUR, V1QPZSAY, BEART in the last 168 hours. No results for input(s): APTT, INR, PTT in the last 168 hours. Recent Labs Lab 12/27/18 05 TSH 1.500 Recent Labs Lab 12/27/18 0751 12/27/18516 TROPONINI 0.046* 0.048* Results No results found for the last 72 hours. RADIOLOGY: Me Myocardial Perfusion Spect (stress And Rest) Result [...] 12/31/181903 Date of Service: 12/31/181903 Status: Signed Kennel Supervisor: Radha Chirinos RN (Registered Nurse) 12 hour chart check completed onver sarah Transaction, Provider Unknown - 12/31/2018 12:53 PM PDT Nurse Progress Note by Ana Horn RN at 12/31/181252 Author: Ana Horn RN Service: Wound/Ostomy Care Author Type: Registered Nurse Filed: 12/31/181252 Date of Service: 12/31/181252 Status: Signed Kennel Supervisor: Ana Horn RN (Registered Nurse) 2 layer Coban compression wraps applied bilaterally. Ana Horn RN, CMSRN, [facility] Inpatient Wound Care 12/31/2018 12:53 PM [phone] onver sarah Transaction, Provider Unknown - 12/31/2018 10:28 AM PDT Therapy Progress Note by Zak Walden PTA at 12/31/18 1028 Author: Zak Walden PTA Service: (none) Author Type: Manager Drive Filed: 12/31/18 1123 Date of Service: 12/31/18 1028 Status: Signed Kennel Supervisor: Zak Walden PTA (Manager Drive) PHYSICAL THERAPY TREATMENT NOTE PT Received On: 12/31/18 Reason for Treatment: Deconditioning Requires PT Follow Up: Yes Recommendations: SNF Plan Treatment/Interventions: Continue per Primary PT POC Progress: Slow progress, medical status limitations Summary Comments: Pt supine in Bed when CUSTOMER FIELD REPRESENTATIVE arrives, therapy focused on LE strengthening and [...] 12/31/18953 Date of Service: 12/31/18952 Status: Signed Kennel Supervisor: Lyle Vences RN (Registered Nurse) 9:53 AM Met with Michael and his . I let them know that Michael is accepted to [facility] when medically ready. They were in agreement with that plan. onver sarah Transaction, Provider Unknown - 12/31/2018 5:40 AM PDT Nurse Progress Note by Lisha Cruz RN at 12/31/18539 Author: Lisha Cruz RN Service: (none) Author Type: Registered Nurse Filed: 12/31/1853 Date of Service: 12/31/18539 Status: Signed Kennel Supervisor: Lisha Cruz RN (Registered Nurse) Urine output 1195 this shift, clear and malodorous. VS stable. Restful shift. End of shift review complete. Lisha Cruz RN onver sarah Transaction, Provider Unknown - 12/30/2018 7:34 PM PDT Nurse Progress Note by Radha Chirinos RN at 12/30/181933 Author: Radha Chirinos RN Service: (none) Author Type: Registered Nurse Filed: 12/30/181934 Date of Service: 12/30/181933 Status: Signed Kennel Supervisor: Radha Chirinos RN (Registered Nurse) 12 hour chart check complete onver sarah Transaction, Provider Unknown - 12/30/2018 3:09 PM PDT Nurse Progress Note by Alfred Phan RN at 12/30/18 150 Author: Alfred Phan RN Service: Wound/Ostomy Care Author Type: Registered Nurse Filed: 12/30/181510 Date of Service: 12/30/181508 Status: Signed Kennel Supervisor: Alfred Phan RN (Registered Nurse) Wound care [...] Date of Service: 12/30/18 120 Status: Addendum Kennel Supervisor: Lyle Vences RN (Registered Nurse) Related Notes: Original Note by Lyle Vences RN (Registered Nurse) filed at 12/30/1809 27 12:01 PM Received call from [facility] in [place]. They can accept Michael . I let them know he will likely be here until at least Friday. 12:09 PM PASSR sent to [facility]. 3:11 PM Discussed patient with Dr. Dawson. Michael will need another 48-72 hours in the hospital. Plan is to go to [facility] in [place]. Shar Mehta MD - 12/30/2018 9:28 AM PDT Progress Notes by Shar Dawson MD at 12/30/18927 Author: Shar Dawson MD Service: Hospitalist Author Type: Physician Filed: 12/30/18 1707 Date of Service: 12/30/18927 Status: Signed Kennel Supervisor: Shar Dawson MD (Physician) [facility] Service: Hospitalist Progress Note Pt: Michael [...] other chronic comorbidities who p resents to [facility] ER from [facility] on 12/27 for acute dyspnea/anginal equivalent. SUBJECTIVE: [...] hours. No results for input(s): PHART, PO2ART, UIG3NPE, T0ESDBZH, BEART in the last 168 hours. No results for input(s): APTT, INR, PTT in the last 168 hours. Recent Labs Lab 12/27/18 0517 TSH 1.500 Recent Labs Lab 12/27/18 0751 12/27/18 0517 TROPONINI 0.046* 0.048* Results No results found for the last 72 hours. RADIOLOGY: Me Myocardial Perfusion Spect (stress And Rest) Result [...] heart failure (HCC) Chronic systolic heart failure ([facility]) ASSESSMENT & PLAN 1. Acute respiratory distress [...] as below. No change today.Continue with current jeninfer men for now, follow, and adjust as [...] and managing patient and counseling/coordination. Dictation software, Geron, used which may contain error for similar [...] 12/30/18913 Date of Service: 12/30/18906 Status: Signed Kennel Supervisor: Lyle Vences RN (Registered Nurse) 12/30/18903 Discharge [...] concerns No Transportation issues No Patient/Family concerns [place] Previous home health equipment No Vascular access device No Ostomy/Drains/Appliances No Anticipated Disposition Facility Type snf facility;Home health half-way Health Care Facility Other (comment) ([facility] ) Care Home Facility ([facility]) Met with Michael and discussed discharge planning, Pt is a 78 y.o., male who lives in [facility] with his [place]. PT is currently recomending SNF, but patient would prefer to retur home. [facility] . His baseline is using a walker/ [...] 12/30/18915 Date of Service: 12/30/18834 Status: Signed Kennel Supervisor: Pedrito Beck PT (Physical Therapist) PHYSICAL THERAPY [...] 12/30/1849 Date of Service: 12/30/18547 Status: Signed Kennel Supervisor: Lisha Cruz RN (Registered Nurse) 7 beats of V tach per television and radio repairer at 0542. Patient asymptomatic. Otherwise VS stable. [...] 184 Date of Service: 12/29/181834 Status: Signed Kennel Supervisor: Kristine Mueller RN (Registered Nurse) No acute [...] 12/29/182143 Date of Service: 12/29/181614 Status: Signed Kennel Supervisor: Shar Dawson MD (Physician) [facility] Service: Hospitalist Progress Note Pt: Michael Joshi AGE/SEX: 78 y.o. male ROOM: [address] [place] [address] : 1940 PCP: AMEE URRUTIA ADMIT DATE: [...] other chronic comorbidities who p resents to [facility] ER from [facility] on 12/27 for acute dyspnea/anginal equivalent. SUBJECTIVE: [...] hours. No results for input(s): PHART, PO2ART, ONO7NPZ, G7MJALAH, BEART in the last 168 hours. No results for input(s): APTT, INR, PTT in the last 168 hours. Recent Labs Lab 12/27/18 0517 TSH 1.500 Recent Labs Lab 12/27/18 0751 12/27/18 0517 TROPONINI 0.046* 0.048* Results No results found for the last 72 hours. RADIOLOGY: Me Myocardial Perfusion Spect (stress And Rest) Result [...] and managing patient and counseling/coordination. Dictation software, Geron, used which may contain error for similar [...] Note by Alva Mohamud PT at 12/29/18 6963 Author: Alva Mohamud PT Service: (none) Author Type: Physical Therapist Filed: 12/29/18 0293 Date of Service: 12/29/18 7366 Status: Signed Kennel Supervisor: Alva Mohamud PT (Physical Therapist) PHYSICAL THERAPY TREATMENT NOTE PT Received On: 12/29/18 Reason for Treatment: Deconditioning Requires PT Follow Up: Yes Focus for Next Treatment: Formal Balance Assessment Recommendations: SNF Barriers to Discharge: Physical Deficits Impacting Functional [place], Self-care Defic its Impacting Functional [place], Lack of Family Support/Training PT Ready for [...] within the room. 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 Intake 1000 mL. Kristine Mueller RN onver sarah Transaction, Provider Unknown - 12/28/2018 7:06 PM PDT Nurse Progress Note by Kristine Mueller RN at 12/28/181905 Author: Kristine Mueller RN Service: (none) Author Type: Registered Nurse Filed: 12/28/181908 Date of Service: 12/28/181905 Status: Signed Kennel Supervisor: Kristine Mueller RN (Registered Nurse) No acute [...] Service: Hospitalist Author Type: Physician Filed: 12/28/18 1534 Date of Service: 12/28/18944 Status: Addendum Kennel Supervisor: Franki Carrizales MD (Physician) Related Notes: Original Note by Franki Carrizales MD (Physician) filed at 12/28/18944 [facility] Service: Hospitalist Progress Note Hospital Day: [...] other chronic comorbidities who p resents to [facility] ER from [facility] on 12/27 for acute dyspnea/anginal equivalent. SUBJECTIVE [...] 12/28/1840 Date of Service: 12/28/18937 Status: Signed Kennel Supervisor: Lyle Vences RN (Registered Nurse) 9:39 AM [...] 12/28/18708 Date of Service: 12/28/18704 Status: Signed Kennel Supervisor: Maria De Jesus De La Cruz RN [...] 12/27/181940 Date of Service: 12/27/181858 Status: Signed Kennel Supervisor: Kristine Mueller RN (Registered Nurse) Pt transfered [...] Date of Service: 12/27/18 104 Status: Signed Kennel Supervisor: Ashley Chappell RN (Registered Nurse) Pacemaker interrogation completed, see report on patient's chart. onver sarah Transaction, Provider Unknown - 12/27/2018 8:06 AM PDT Nurse Progress Note by Pablo Amezcua RN at 12/27/18805 Author: Pablo Amezcua RN Service: (none) Author Type: Registered Nurse Filed: 12/27/18805 Date of Service: 12/27/18805 Status: Signed Kennel Supervisor: Pablo Amezcua RN (Registered Nurse) RN spoke with Dr. Carrizales regarding pt's labetolol administration. See VO of hydralazine. Pablo Amezcua RN onver sarah Transaction, Provider Unknown - 12/27/2018 6:45 AM PDT Nurse Progress Note by Rebeka Rodrigues RN at 12/27/18644 Author: Rebeka Rodrigues RN Service: (none) Author Type: Registered Nurse Filed: 12/27/18644 Date of Service: 12/27/18644 Status: Signed Kennel Supervisor: Rebeka Rodrigues RN (Registered Nurse) End of shift audit complete. onver sarah Transaction, Provider Unknown - 12/27/2018 5:33 AM PDT Pharmacy Note by Kojo Draper RPH at 12/27/18532 Author: Kojo Draper RPH Service: Pharmacy Author Type: Pharmacist Filed: 12/27/18532 Date of Service: 12/27/18532 Status: Signed Kennel Supervisor: Kojo Draper RPH (Pharmacist) Clinical Pharmacy Note: [...] 2019 | Visit | | [address] [facility] | | | | | | [address] [place], [place] | | | | | | [address] | | | | | | | [...] | | | | | [place] [address] | | | | + + + [...] W | | | | | | [facility], | | | | | | [place] [address] | | | | + + + [...] W | | | | | | [facility], | | | | | | [place] [address] | | | | + + + [...] | | | Basophils | performed at [facility], [address] | K/uL | LAB | | | | Cesar Ley[place], | | | | | | [place] [address] | | | | + + + [...] EXTERNAL | | | | performed at [facility], [address] | | LAB | | | | [address]esar Le[address]va, | | | | | | [place] [address] | | | | + + + [...] | | | | | | Cesar [facility], | | | | | | [place] [address] | | | | + + + [...] | | | Basophils | performed at [facility], [address] | K/uL | LAB | | | | [place]esar Le[place], | | | | | | [place] [address] | | | | + + + [...] EXTERNAL | | | | performed at [facility], [address] | | LAB | | | | Cesar Leyva, | | | | | | [place] [address] | | | | + + + [...] W | | | | | | [facility], | | | | | | [place] [address] | | | | + + + [...] | | | Basophils | performed at [facility], [address] | K/uL | LAB | | | | Cesar Leyva, | | | | | | [place] [address] | | | | + + + [...] EXTERNAL | | | | performed at [facility], [address] | | LAB | | | | Cesar Leyva, | | | | | | [place] [address] | | | | + + + [...] W | | | | | | [facility], | | | | | | [place] [address] | | | | + + + [...] | | | Basophils | performed at [facility], [address] | K/uL | LAB | | | | Cesar Leyva, | | | | | | [place] [address] | | | | + + + [...] EXTERNAL | | | | performed at [facility], [address] | | LAB | | | | Cesar Leyva, | | | | | | [place] [address] | | | | + + + [...] W | | | | | | [facility], | | | | | | [place] [address] | | | | + + + [...] | | | Basophils | performed at [facility], [address] | K/uL | LAB | | | | Cesar Leyva, | | | | | | [place] [address] | | | | + + + [...] EXTERNAL | | | | performed at [facility], [address] | | LAB | | | | Cesar Leyva, | | | | | | [place] [address] | | | | + + + [...] W | | | | | | [facility], | | | | | | [place] [address] | | | | + + + [...] | | | | | | at [facility] [place];[address] | | | | [address];[place] [address] | | | | + + + [...] | | | Basophils | performed at [facility], [address] | K/uL | LAB | | | | Cesar Leyva, | | | | | | [place] [address] | | | | + + + [...] EXTERNAL | | | | performed at [facility], [address] | | LAB | | | | Cesar Leyva, | | | | | | [place] [address] | | | | + + + [...] | | | | | | [place] [address] | | | | + + + [...] | | | Basophils | performed at [facility], [address] | K/uL | LAB | | | | Cesar Tang, | | | | | | [place] [address] | | | | + + + [...] EXTERNAL | | | | performed at [facility], [address] | | LAB | | | | Cesar Leyva, | | | | | | [place] [address] | | | | + + + [...] W | | | | | | [facility], | | | | | | [place] [address] | | | | + + + [...] | | | Basophils | performed at [facility], [address] | K/uL | LAB | | | | Cesar Leyva, | | | | | | [place] [address] | | | | + + + [...] EXTERNAL | | | | performed at [facility], [address] | | LAB | | | | Cesar Leyva, | | | | | | [place] [address] | | | | + + + [...] W | | | | | | [facility], | | | | | | [place] [address] | | | | + + + [...] | | | Basophils | performed at [facility], [address] | K/uL | LAB | | | | Cesar Autumn, | | | | | | [place] [address] | | | | + + + [...] EXTERNAL | | | | performed at [facility], [address] | | LAB | | | | Cesar Leyva, | | | | | | [place] [address] | | | | + + + [...] W | | | | | | [facility], | | | | | | [place] [address] | | | | + + + [...] | | | Reticulocyt | performed at [facility] [place];[address] | | LAB | | | [address] | Renetta [address];[place], [place] | | | | | | [address] | | | | + + + [...] | | | ------REPORT ADDENDED------ INDICATIONS acute NE | | | CONCLUSIONS 1. This was [...] Aortic Valve: | | | There is elhn-vv-hhqzhmdf aortic regurgitation. Mitral Valve: Mild | | [...] TR Vmax: 3.49 m/s | | | Assembler Dc Field Ring: ROSY Authenticated by: Perdito Taylor MD Report | | | Date/Time: 12-27-2018 13:58:10 | | + + + + + | Procedure Note | + + | Edgardo Piper Conversion - 06/01/2019 8:17 PM PDT Patient Name: Kel Joshi of | | : 1940 Performing Physician: Pedrito Taylor | | MD ------REPORT | | ADDENDED------INDICATIONS acute NE CONCLUSIONS 1. This was a | | [...] valve is mildly calcified.Aortic Valve: There is amtw-lw-hbhujern aortic | | regurgitation.Mitral Valve: Mild mitral [...] mlLAESV Index (A-L): 109.85 ml/m2LAAs A2C: 64.13 jn3FQPSO A-L A2C: 351.26 | | mlLALs A2C: 9.93 cmLAAs A4C: 45.52 dl8BQOGO A-L A4C: 173.98 mlLALs A4C: 10.11 | | cmTAPSE: 1.10 cmHR: 80.22 BPMAV maxP.70 mmHgAV meanP.31 mmHgAV Vmax: | | 1.55 m/Davie Vmean: 1.10 m/Davie VTI: 33.13 cmAVA Vmax: 2.73 cm2AVA (VTI): 2.82 | | vl5GLSA Vmax: 0.00 cm2/m2AVAI (VTI): 0.00 cm2/m2LVCI Dopp: 2.84 l/cdwk7JMLA Dopp: | | 6.45 l/minHR: 68.91 BPMLVOT maxP.89 mmHgLVOT meanP.48 mmHgLVSI Dopp: | | 41.23 ml/m2LVSV Dopp: 93.59 mlLVOT Vmax: 0.85 m/sLVOT Vmean: 0.58 m/sLVOT VTI: | | 18.72 cmSeptal e': 0.08 m/sLateral e': 0.09 m/sHR: 59.71 BPMPV maxP.15 | | mmHgPV meanP.55 mmHgPV Vmax: 0.53 m/sPV Vmean: 0.34 m/sPV VTI: 10.42 cmRV | | S': 0.06 m/sTR maxP.74 mmHgTR Vmax: 3.49 m/s Assembler Dc Field Ring: MWAuthenticated by: | | Pedrito Taylor MDReport [...] |TR Vmax: 3.49 m/s | | | |Assembler Dc Field Ring: MW | |Authenticated by: Pedrito Taylor MD [...] | | | | | | at [facility] [place];[facility] [address] | | | | | | [address];[place] [address] | | | | + + + [...] | | LAB | | | | [facility] [place];[address] [facility] | | | | | | [facility];[place] [address] | | | | + + + [...] | | | | | [place] [address] | | | | + + + [...] | | | | | | at [facility] [place];[facility] [address] | | | | | | [address];[place] [address] | | | | + + + [...] | | | Basophils | performed at [facility], [address] | K/uL | LAB | | | | Cesar Leyva, | | | | | | [place] [address] | | | | + + + [...] | | | | | [place] [address] | | | | + + + [...] EXTERNAL | | | | performed at [facility], [address] | | LAB | | | | Cesar Autumn, | | | | | | [place] [address] | | | | + + + [...] EXTERNAL | | | | performed at [facility], [address] | | LAB | | | | Cesar Leyva, | | | | | | [place] [address] | | | | + + + [...] W | | | | | | [facility], | | | | | | [place] [address] | | | | + + + [...] | | | External | performed at [facility], [address] | | LAB | | | | Cesar Leyva, | | | | | | [place] [address] | | | | + + + [...] | | | Cholesterol | performed at [facility], [address] | | LAB | | | , | Cesar [place], | | | | | Calculated, | [place] [address] | | | | | External | [...] | | | | | | [place] [address] | | | | + + + [...] + + | Historically converted [facility] Epic environment | EXTERNAL LAB | + [...]
--- OUTSIDE RECORDS SUMMARY | ~2019-10-20 | XMS | Encounter Summary ---
Demographics + + + | Address | [address] | | | [place] [address] | + + + | Home Phone [...] Providers + +------+ + | Care Online Merchandising Specialist Name | Role | Phone | + +------+ + | Kushal Costa MD | PCP | | + +------+ + Encounter Details +--------+ + + + + | Date | Type | Department | Care Team | Description | +--------+ + + + + | 10/27/ | Orders Only | [facility] | Danny Gandara MD | | | 2017 | | NEPRHOLOGY [place] | [address] | | | | | [address] | [address] [place], [place] | | | | | [address] [place], [place] | [address] | | | | | [address] | | | | | | [phone] | | | +--------+ + + + [...] | Visit | | [address] [facility] | | | | | | [address] [place] | | | | | | [address] | | | | | | | [...]
--- OUTSIDE RECORDS SUMMARY | ~2019-10-20 | XMS | Encounter Summary ---
Demographics + + + | Address | [address] | | | [place] [address] | + + + | Home Phone [...] Team Providers + +------+ + | Care Hired Help Name | Role | Phone | + +------+ + | Kushal Costa MD | PCP | | + +------+ + Encounter Details +--------+ + + + + | Date | Type | Department | Care Team | Description | +--------+ + + + + | 10/23/ | Orders Only | [facility] | Danny Gandara MD | | | 2018 | | NEPHROLOGY [place] | [address] [place] | | | | | [address] [place] | [address] [place], [place] | | | | | [address] [place], [place] | [address] | | | | | [address] | | | | | | [phone] | | | +--------+ + + + [...] 2020 | Visit | | [address] [facility] | | | | | | [address] [place] | | | | | | [address] | | | | | | | [...] | | | LAB | | | [place] | | | | | + + [...]
--- OUTSIDE RECORDS SUMMARY | ~2019-10-20 | XMS | Encounter Summary ---
Demographics + + + | Address | [address] | | | [place] [address] | + + + | Home Phone | | + + + | Preferred Language | Unknown | + + + | Marital Status | | + + + | Synagogue Affiliation | 1041 | + + + | Race | Unknown | + + + | Ethnic Group | Unknown | + + + Author + + + | Author | [facility] | | | and [place] | + + + | Organization | [facility] | | | [...] Team Providers + +------+ + | Care Airline Lounge Receptionist Name | Role | Phone | + +------+ + | Kushal Costa MD | PCP | | + +------+ + Encounter Details +--------+ + + + + | Date | Type | Department | Care Team | Description | +--------+ + + + + | 01/11/ | Orders Only | [facility] | Conversion | | | 2019 | | NEPHROLOGY [place] | Transaction, | | | | | [address] [place] | Provider Unknown | | | | | [address] [facility] [place] | | | | | | [address] | (Fax) | | | | | [phone] | | | +--------+ + + + [...] 2019 | Visit | | [address] [facility] | | | | | | [address] [place] | | | | | | [address] | | | | | | | [...]
--- OUTSIDE RECORDS SUMMARY | ~2019-10-20 | XMS | Encounter Summary ---
Demographics + + + | Address | [address] | | | [place] [address] | + + + | Home Phone | | + + + | Preferred Language | Unknown | + + + | Marital Status | | + + + | Catholic Affiliation | 1041 | + + + | Race | Unknown | + + + | Ethnic Group | Unknown | + + + Author + + + | Author | [facility] | | | and [place] | + + + | Organization | [facility] | | [...] Team Providers + +------+ + | Care High School Art Teacher Name | Role | Phone | [...] [place] | | | | | [phone] | [place] [address] | | +--------+ + + + + [...] 2019 | Visit | | [address] [facility] [place] | | | | | | [address] [place], [place] | | | | | | [address] | | | | | | | [...]
--- OUTSIDE RECORDS SUMMARY | ~2019-10-20 | XMS | Encounter Summary ---
Demographics + + + | Address | [address] | | | [place] [address] | + + + | Home Phone | | + + + | Preferred Language | Unknown | + + + | Marital Status | | + + + | Taoism Affiliation | 1041 | + + + | Race | Unknown | + + + | Ethnic Group | Unknown | + + + Author + + + | Author | [facility] | | | and [place] | + + + | Organization | [facility] | | | [...] Providers + +------+ + | Care Process Technician Name | Role | Phone | + +------+ + | Amee Urrutia MD | PCP | | + +------+ + Encounter Details +--------+ + + + + | Date | Type | Department | Care Team | Description | +--------+ + + + + | 12/27/ | Hospital | [facility] | Enriqueta Reese, | Hypervolemia, | | 2019 - | Encounter | [facility] | MD [address] | unspecified | | | | CARE FLOOR [address] | [place] [address] | hypervolemia type | | 01/08/ | | [address] | [phone] | | | 2018 | | [place], [place] | | | | | | [address] | | | | | | [phone] | | | +--------+ + + + [...] 01/09/19610 Date of Service: 01/08/19929 Status: Signed Java Scala Developer: Nellie Clinton MD (Physician) Related Notes: Original Note by Nellie Clinton MD (Physician) filed at 01/08/19935 [facility] Service: Hospitalist Physician Discharge Summary [...] discussed with Dr. 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 He will check his bloo d pressure [...] patient will follow u p outpatient with deputy sheriff. Wound care instructions have been given. Plan [...] up: Amee Urrutia MD [address], [address] [place] [address] Schedule an appointment as soon as possible for a visit in 3 days resume care with all providers you were seeing prior to admission Danny Gandara MD [address] [phone] Schedule an appointment as soon as possible [...] summary. This entry has been created using AdexLink Speech Recognition software and Ecowell. The entry has been reviewed and there [...] 1054 Date of Service: 01/08/191051 Status: Signed Java Scala Developer: Lyle Vences RN (Registered Nurse) 10:52 AM Disposition: Home with [facility] Transportation:spouse Face to face order added to AVS and has been faxed to [facility], confirmed with Kristine that she r eceived [...] Date of Service: 01/08/19 1023 Status: Signed Java Scala Developer: Francy Camacho RN (Registered Nurse) IV removed, [...] 01/08/193 Date of Service: 01/08/19411 Status: Signed Java Scala Developer: Anna Tran RN (Registered Nurse) No acute [...] Date of Service: 01/07/19 1324 Status: Signed Java Scala Developer: Nellie Clinton MD (Physician) [facility] Service: Hospitalist Progress Note Hospital [...] PM This entry has been created using AdexLink Speech Recognition software and Ecowell. The entry has been reviewed and there may still exist sound alike word errors. onversion Trans action, Provider Unknown - 01/07/2019 1:00 PM PDT Progress Notes by José Miguel Hylton at 01/07/19 1300 Author: José Miguel Hylton Service: (none) Author Type: Filed: 01/07/19 1310 Date of Service: 01/07/19 1300 Status: Addendum Java Scala Developer: José Miguel Hylton () Related Notes: Original Note by José Miguel Hylton (Pipe Organ Builder) filed at 01/07/19 9759 Visit d/t LOS. Met with Pt and [...] Date of Service: 01/07/19 1017 Status: Signed Java Scala Developer: Lyle Vences RN (Registered Nurse) 10:17 AM Michael and his would prefer for him to go home rather than [facility]. I sent referral to [facility]. They have had him before and will accept him. onver sarah Transaction, Provider Unknown - 01/07/2019 9:45 AM PDT Therapy Progress Note by Zak Walden PTA at 01/07/19 0945 Author: Zak Walden PTA Service: (none) Author Type: Loss Prevention Agent Filed: 01/07/19 1021 Date of Service: 01/07/19 0945 Status: Signed Java Scala Developer: Zak Walden PTA (Loss Prevention Agent) PHYSICAL THERAPY TREATMENT NOTE PT Received On: [...] Summary Comments: Pt supine in bed when DIET TECHNICIAN REGISTERED arrives, agreeable to therapy. therapy focused on [...] Date of Service: 01/07/19 0300 Status: Signed Java Scala Developer: Anna Tran RN (Registered Nurse) No acute changes from previous shift. End of shift audit and 24H chart check completed. Anna Tran RN onver sarah Transaction, Provider Unknown - 01/06/2019 4:31 PM PDT Progress Notes by Hyun Irvin RN at 01/06/19 1631 Author: Hyun Irvin RN Service: (none) Author Type: Registered Nurse Filed: 01/06/19 1633 Date of Service: 01/06/19 163 Status: Signed Java Scala Developer: Hyun Irvin RN (Registered Nurse) Pt hypotensive (71/50) not having any sympyoms. 500cc bolus given. BP now 99/55. BLE dressi ngs removed and to be replaced by wound care tomorrow.End of shifts audits complete Hyun noel RN onver sarah Transaction, Provider Unknown - 01/06/2019 3:17 PM PDT Case Management by Lyle Vences RN at 01/06/19 5067 Author: Lyle Vences RN Service: (none) Author Type: Registered Nurse Filed: 01/06/19 1518 Date of Service: 01/06/197 Status: Signed Java Scala Developer: Lyle Vences RN (Registered Nurse) 3:17 PM Discussed patient with Dr. Clinton. Michael is accepted to [facility] as soon as he is med ically ready and cleared by nephrology. onver sarah Transaction, Provider Unknown - 01/06/2019 3:07 PM PDT Progress Notes by Gabby Aguayo RN at 01/06/19 4187 Author: Gabby Aguayo RN Service: Wound/Ostomy Care Author Type: Registered Nurse Filed: 01/06/19 1509 Date of Service: 01/06/19 1507 Status: Signed Java Scala Developer: Gabby Aguayo RN (Registered Nurse) TC received [...] Note by Deneen Mera RN at 01/06/19 2033 Author: Deneen Mera RN Service: (none) Author Type: Registered Nurse Filed: 01/06/19 3934 Date of Service: 01/06/19 8600 Status: Signed Java Scala Developer: Deneen Mera RN (Registered Nurse) Called patient's spouse and updated on status. Deneen Mera RN onver sarah Transaction, Provider Unknown - 01/06/2019 11:44 AM PDT Therapy Progress Note by Zak Walden PTA at 01/06/19 1144 Author: Zak Walden PTA Service: (none) Author Type: Loss Prevention Agent Filed: 01/06/19 1220 Date of Service: 01/06/19 1144 Status: Signed Java Scala Developer: Zak Walden PTA (Loss Prevention Agent) PHYSICAL THERAPY TREATMENT NOTE PT Received On: 01/06/19 Reason for Treatment: Deconditioning Requires PT Follow Up: Yes Recommendations: SNF Plan Treatment/Interventions: Continue per Primary PT POC Progress: Progressing toward goals Summary Comments: pt supine in bed when DIET TECHNICIAN REGISTERED arrived, agreeable to therapy. Therapy focused on [...] Date of Service: 01/06/19 1134 Status: Signed Java Scala Developer: Deneen Mera RN (Registered Nurse) Bedside report given to LEONEL Purvis. Deneen Mera RN Nellie Mahajan MD - 01/06/2019 9:37 AM PDTFormatting of this note might be different from t david original. Progress Notes by Nellie Clinton MD at 01/06/19 8946 Author: Nellie Clinton MD Service: Hospitalist Author Type: Physician Filed: 01/06/19 1510 Date of Service: 01/06/19 0977 Status: Signed Java Scala Developer: Nellie Clinton MD (Physician) [facility] Service: Hospitalist Progress Note Hospital [...] LIST Principal Problem: IZZY (acute kidney injury) ([facility]) Active Problems: CKD (chronic kidney disease) stage 3, GFR 30-59 ml/min ([facility]) Essential hypertension, benign Bilateral lower extremity edema Chronic atrial fibrillation ([facility]) Cardiac pacemaker in situ NEETU (obstructive sleep apnea) Pulmonary hypertension ([facility]) Right heart failure ([facility]) Chronic diastolic heart failure ([facility]) ASSESSMENT & PLAN Shortness [...] AM This entry has been created using AdexLink Speech Recognition software and Ecowell. The entry has been reviewed and there may still exist sound alike word errors. onversion Trans action, Provider Unknown - 01/06/2019 6:17 AM PDT Nurse Progress Note by Caryn Polanco RN at 01/06/19616 Author: Caryn Polanco RN Service: (none) Author Type: Registered Nurse Filed: 01/06/19616 Date of Service: 01/06/19616 Status: Signed Java Scala Developer: Caryn Polanco RN (Registered Nurse) A&Ox4. Pt remains on RA. No acute changes during shift. 24 hour chart check and end of shift review completed. Caryn Polanco RN onver sarah Transaction, Provider Unknown - 01/05/2019 3:46 PM PDT Progress Notes by Dayna Roy Help Desk Support at 01/05/19 1546 Author: Julio Saueretic Intern Service: (none) Author Type: Registered gagandeepsmiley Filed: 01/05/191546 Date of Service: 01/05/191545 Status: Attested Java Scala Developer: Julio Saueretic Intern (Registered Dietitian) Cosigner: Jacob baron RD at 01/05/19 1548 Attestation signed by Jacob Diaz RD at 01/05/[address] 01/05/19 2099 Subjective Timepoint Admit Pt c/o Pt triggered for screening secondary to LOS 8. Pt presented to [facility] with SOB and ang darcy. D/C [...] pt has followed RD in past at [facility], doesn't cook with salt, uses Mrs. Medrano [...] Low Follow up date 01/12/19 Dayna Roy, Help Desk Support onver sarah [place]action, Provider Unknown - 01/05/2019 3:05 PM PDT Progress Notes by Pedrito Crane RPH at 01/05/19 3187 Author: Pedrito Crane RPH Service: Pharmacy Author Type: Pharmacist Filed: 01/05/19 1505 Date of Service: 01/05/19 1505 Status: Signed Java Scala Developer: Pedrito Crane RPH (Pharmacist) Rx CHF Medication [...] Date of Service: 01/05/19 1033 Status: Signed Java Scala Developer: Nellie Clinton MD (Physician) [facility] Service: Hospitalist Progress Note Hospital [...] AM This entry has been created using AdexLink Speech Recognition software and Ecowell. The entry has been reviewed and there may still exist sound alike word errors. onversion Trans action, Provider Unknown - 01/05/2019 10:10 AM PDT Case Management by Lyle Vences RN at 01/05/19 1010 Author: Lyle Vences RN Service: (none) Author Type: Registered Nurse Filed: 01/05/19 1047 Date of Service: 01/05/19 1010 Status: Addendum Java Scala Developer: Lyle Vences RN (Registered Nurse) Related Notes: [...] Date of Service: 01/05/19 06 Status: Signed Java Scala Developer: Angie Bowen RN (Registered Nurse) Pt A&Ox4, [...] 01/04/192217 Date of Service: 01/04/192209 Status: Signed Java Scala Developer: Shar Dawson MD (Physician) [facility] Service: Hospitalist Progress Note Pt: Michael Joshi AGE/SEX: 78 y.o. male ROOM: [facility]/7114-1 : 1940 PCP: AMEE URRUTIA ADMIT DATE: [...] other chronic comorbidities who p resents to [facility] ER from [facility] on 12/27 for acute dyspnea/anginal [...] not d/c'd. He is accepted to a [facility] and also he does get [...] hours. No results for input(s): PHART, PO2ART, SML9KGY, R2GHVSSE, BEART in the last 168 hours. No results for input(s): APTT, INR, PTT in the last 168 hours. No results for input(s): TSH, T3FREE, FREET4 in the last 168 hours. No results for input(s): CKTOTAL, TROPONINI, TROPONINT, CKMBINDEX in the last 168 hours. Results No results found for the last 72 hours. RADIOLOGY: [place] Myocardial Perfusion Spect (stress And Rest) Result [...] heart failure (HCC) Chronic systolic heart failure ([facility]) ASSESSMENT & PLAN 1. [...] and managing patient and counseling/coordination. Dictation software, [employer] [facility], used which may contain error for similar [...] Date of Service: 01/04/19 1432 Status: Signed Java Scala Developer: Pablo Larson RN (Registered Nurse) Patient had [...] Date of Service: 01/04/19 09 Status: Addendum Java Scala Developer: Louise Mancilla RN (Registered Nurse) Related Notes: Original Note by Louise Mancilla RN (Registered Nurse) filed at 01/04/19 1021 0900: called Jl at [facility]- no answer, left voice mail. 1015: called [facility] again- was transferred to [place] again- no answer. I called back an d asked if there was another way to get a hold of him. Raine whom answered the phone said that she will try to track him down and have him call me back. 1130: Akil at [facility] called back and said they can accept [...] 01/04/19624 Date of Service: 01/04/19624 Status: Signed Java Scala Developer: Angie Bowen RN (Registered Nurse) Pt A&Ox4, VSS, no acute changes from previous shift. Chart check complete. Angie cunningham RN onver sarah Transaction, Provider Unknown - 01/03/2019 5:01 PM PDT Nurse Progress Note by Gabby Groves RN at 01/03/191700 Author: Gabby Groves RN Service: (none) Author Type: Registered Nurse Filed: 01/03/191701 Date of Service: 01/03/191700 Status: Signed Java Scala Developer: Gabby Stump, RN (Registered Nurse) Pt stable [...] Service: Hospitalist Author Type: Physician Filed: 01/03/19 1739 Date of Service: 01/03/19 1012 Status: Signed Java Scala Developer: Shar Dawson MD (Physician) [facility] Service: Hospitalist Progress Note Pt: Michael Joshi AGE/SEX: 78 y.o. male ROOM: [facility]7114- : 1940 PCP: AMEE URRUTIA ADMIT [...] other chronic comorbidities who p resents to [facility] ER from [facility] on 12/27 for acute dyspnea/anginal [...] hours. No results for input(s): PHART, PO2ART, GTK8LCW, W4QQOJLC, BEART in the last 168 hours. No results for input(s): APTT, INR, PTT in the last 168 hours. No results for input(s): TSH, T3FREE, FREET4 in the last 168 hours. No results for input(s): CKTOTAL, TROPONINI, TROPONINT, CKMBINDEX in the last 168 hours. Results No results found for the last 72 hours. RADIOLOGY: [place] Myocardial Perfusion Spect (stress And Rest) Result [...] heart failure (HCC) Chronic systolic heart failure ([facility]) ASSESSMENT & PLAN 1. [...] and managing patient and counseling/coordination. Dictation software, [employer] [facility] [employer] [facility], used which may contain error for similar [...] 01/03/19617 Date of Service: 01/03/19616 Status: Signed Java Scala Developer: Angie Bowen RN (Registered Nurse) Pt A&Ox4, VSS. No acute changes from previous shift. Chart check complete. Angie mcintosh RN Shar Mehta MD - 01/02/2019 9:58 AM PDT Progress Notes by Shar Dawson MD at 01/02/19957 Author: Shar Dawson MD Service: Hospitalist Author Type: Physician Filed: 01/02/19 1630 Date of Service: 01/02/19957 Status: Signed Java Scala Developer: Shar Dawson MD (Physician) [facility] Service: Hospitalist Progress Note Pt: [...] other chronic comorbidities who p resents to [facility] ER from [facility] on 12/27 for acute dyspnea/anginal [...] hours. No results for input(s): PHART, PO2ART, NWH9LOE, U5RTVKZQ, BEART in the last 168 hours. No results for input(s): APTT, INR, PTT in the last 168 hours. Recent Labs Lab 12/27/18 05 TSH 1.500 Recent Labs Lab 12/27/18 0751 12/27/18516 TROPONINI 0.046* 0.048* Results No results found for the last 72 hours. RADIOLOGY: [place] Myocardial Perfusion Spect (stress And Rest) Result [...] heart failure (HCC) Chronic systolic heart failure ([facility]) ASSESSMENT & PLAN 1. [...] and managing patient and counseling/coordination. Dictation software, [employer] [facility], used which may contain error for similar [...] 01/02/1914 Date of Service: 01/02/19512 Status: Signed Java Scala Developer: Angie Bowen RN (Registered Nurse) Pt A&Ox4, [...] 01/01/191750 Date of Service: 01/01/191750 Status: Signed Java Scala Developer: Radha Chirinos RN (Registered Nurse) 12 hour chart check complete. No acute changes this shift onver sarah Transaction, Provider Unknown - 01/01/2019 10:36 AM PDT Case Management by Lyle Vences RN at 01/01/191035 Author: Lyle Vences RN Service: (none) Author Type: Registered Nurse Filed: 01/01/19 1037 Date of Service: 01/01/191035 Status: Signed Java Scala Developer: Lyle Vences RN (Registered Nurse) 10:37 AM Called and updated [facility] admissions that Michael would not be ready for DC today. har Solorzano MD - 01/01/2019 9:41 AM PDT Progress Notes by Shar Dawson MD at 01/01/19940 Author: Shar Dawson MD Service: Hospitalist Author Type: Physician Filed: 01/01/194 Date of Service: 01/01/19940 Status: Signed Java Scala Developer: Shar Dawson MD (Physician) [facility] Service: Hospitalist Progress Note Pt: [...] other chronic comorbidities who p resents to [facility] ER from [facility] on 12/27 for acute dyspnea/anginal [...] hours. No results for input(s): PHART, PO2ART, TKL6NRZ, W2VNKBBD, BEART in the last 168 hours. No results for input(s): APTT, INR, PTT in the last 168 hours. Recent Labs Lab 12/27/18 0517 TSH 1.500 Recent Labs Lab 12/27/18 0751 12/27/18 0517 TROPONINI 0.046* 0.048* Results No results found for the last 72 hours. RADIOLOGY: [place] Myocardial Perfusion Spect (stress And Rest) Result [...] and managing patient and counseling/coordination. Dictation software, [employer] [facility], used which may contain error for similar [...] 01/01/19619 Date of Service: 01/01/19616 Status: Signed Java Scala Developer: Lisha Cruz RN (Registered Nurse) Low blood [...] 12/31/182249 Date of Service: 12/31/182248 Status: Signed Java Scala Developer: Lisha Cruz RN (Registered Nurse) Orthostatic bps Layin 87/55 Sittin 80/52 Standing 2246: 84/52 har Solorzano MD - 12/31/2018 7:59 PM PDT Progress Notes by Shar Dawson MD at 12/31/181958 Author: Shar Dawson MD Service: Hospitalist Author Type: Physician Filed: 12/31/182220 Date of Service: 12/31/181958 Status: Signed Java Scala Developer: Shar Dawson MD (Physician) [facility] Service: Hospitalist Progress Note Pt: Michael Huttonjairon AGE/SEX: 78 y.o. male ROOM: [facility]7114-1 : 1940 PCP: AMEE URRUTIA ADMIT [...] other chronic comorbidities who p resents to [facility] ER from [facility] on 3/10 for acute dyspnea/anginal equivalent. SUBJECTIVE: [...] hours. No results for input(s): PHART, PO2ART, ZFW8ASK, N3LWXZXF, BEART in the last 168 hours. No results for input(s): APTT, INR, PTT in the last 168 hours. Recent Labs Lab 12/27/18 05 TSH 1.500 Recent Labs Lab 12/27/18 0751 12/27/18516 TROPONINI 0.046* 0.048* Results No results found for the last 72 hours. RADIOLOGY: [place] Myocardial Perfusion Spect (stress And Rest) Result [...] 12/31/181903 Date of Service: 12/31/181903 Status: Signed Java Scala Developer: Radha Chirinos RN (Registered Nurse) 12 hour chart check completed onver sarah Transaction, Provider Unknown - 12/31/2018 12:53 PM PDT Nurse Progress Note by Ana Horn RN at 12/31/181252 Author: Ana Horn RN Service: Wound/Ostomy Care Author Type: Registered Nurse Filed: 12/31/181252 Date of Service: 12/31/181252 Status: Signed Java Scala Developer: Ana Horn RN (Registered Nurse) 2 layer Coban compression wraps applied bilaterally. Ana Horn RN, CMSRN, [facility] Inpatient Wound Care 12/31/2018 12:53 PM [phone] onver sarah Transaction, Provider Unknown - 12/31/2018 10:28 AM PDT Therapy Progress Note by Zak Walden PTA at 12/31/18 1028 Author: Zak Walden PTA Service: (none) Author Type: Loss Prevention Agent Filed: 12/31/18 1123 Date of Service: 12/31/18 1028 Status: Signed Java Scala Developer: Zak Walden PTA (Loss Prevention Agent) PHYSICAL THERAPY TREATMENT NOTE PT Received On: 12/31/18 Reason for Treatment: Deconditioning Requires PT Follow Up: Yes Recommendations: SNF Plan Treatment/Interventions: Continue per Primary PT POC Progress: Slow progress, medical status limitations Summary Comments: Pt supine in Bed when DIET TECHNICIAN REGISTERED arrives, therapy focused on LE strengthening and [...] 12/31/18953 Date of Service: 12/31/18952 Status: Signed Java Scala Developer: Lyle Vences RN (Registered Nurse) 9:53 AM Met with Michael and his . I let them know that Michael is accepted to [facility] when medically ready. They were in agreement with that plan. onver sarah Transaction, Provider Unknown - 12/31/2018 5:40 AM PDT Nurse Progress Note by Lisha Cruz RN at 12/31/18539 Author: Lisha Cruz RN Service: (none) Author Type: Registered Nurse Filed: 12/31/1853 Date of Service: 12/31/18539 Status: Signed Java Scala Developer: Lisha Cruz RN (Registered Nurse) Urine output 1195 this shift, clear and malodorous. VS stable. Restful shift. End of shift review complete. Lisha Cruz RN onver sarah Transaction, Provider Unknown - 12/30/2018 7:34 PM PDT Nurse Progress Note by Radha Chirinos RN at 12/30/181933 Author: Radha Chirinos RN Service: (none) Author Type: Registered Nurse Filed: 12/30/181934 Date of Service: 12/30/181933 Status: Signed Java Scala Developer: Radha Chirinos RN (Registered Nurse) 12 hour chart check complete onver sarah Transaction, Provider Unknown - 12/30/2018 3:09 PM PDT Nurse Progress Note by Alfred Phan RN at 12/30/18 150 Author: Alfred Phan RN Service: Wound/Ostomy Care Author Type: Registered Nurse Filed: 12/30/181510 Date of Service: 12/30/181508 Status: Signed Java Scala Developer: Alfred Phan RN (Registered Nurse) Wound care [...] Date of Service: 12/30/18 120 Status: Addendum Java Scala Developer: Lyle Vences RN (Registered Nurse) Related Notes: Original Note by Lyle Vences RN (Registered Nurse) filed at 12/30/1809 27 12:[address] call from [facility] in [place]. They can accept Michael . I let them know he will likely be here until at least Friday. 12:09 PM PASSR sent to [facility]. 3:11 PM Discussed patient with Dr. Dawson. Michael will need another 48-72 hours in the hospital. Plan is to go to [facility] in [place]. Shar Mehta MD - 12/30/2018 9:28 AM PDT Progress Notes by Shar Dawson MD at 12/30/18927 Author: Shar Dawson MD Service: Hospitalist Author Type: Physician Filed: 12/30/18 1707 Date of Service: 12/30/18927 Status: Signed Java Scala Developer: Shar Dawson MD (Physician) [facility] Service: Hospitalist Progress Note Pt: [...] other chronic comorbidities who p resents to [facility] ER from [facility] on 12/27 for acute dyspnea/anginal [...] hours. No results for input(s): PHART, PO2ART, TAR5ICA, C8MBLBRA, BEART in the last 168 hours. No results for input(s): APTT, INR, PTT in the last 168 hours. Recent Labs Lab 12/27/18 0517 TSH 1.500 Recent Labs Lab 12/27/18 0751 12/27/18 0517 TROPONINI 0.046* 0.048* Results No results found for the last 72 hours. RADIOLOGY: [place] Myocardial Perfusion Spect (stress And Rest) Result [...] heart failure (HCC) Chronic systolic heart failure ([facility]) ASSESSMENT & PLAN 1. [...] and managing patient and counseling/coordination. Dictation software, [employer] [facility] [employer] [facility], used which may contain error for similar [...] 12/30/18913 Date of Service: 12/30/18906 Status: Signed Java Scala Developer: Lyle Vences RN (Registered Nurse) 12/30/18903 Discharge [...] concerns No Transportation issues No Patient/Family concerns [place] [place] Previous home health equipment No Vascular access device No Ostomy/Drains/Appliances No Anticipated Disposition Facility Type alf facility;Home health senior care Health Care Facility Other (comment) ([facility] ) [facility] ([facility]) Met with Michael and discussed discharge planning, Pt is a 78 y.o., male who lives in [facility] with his [place]. PT is currently recomending SNF, but patient would prefer to retur home. [facility] . His baseline is using a walker/ [...] 12/30/18915 Date of Service: 12/30/18834 Status: Signed Java Scala Developer: Pedrito Beck PT (Physical Therapist) PHYSICAL THERAPY [...] 12/30/1849 Date of Service: 12/30/18547 Status: Signed Java Scala Developer: Lisha Cruz RN (Registered Nurse) 7 beats of V tach per telehealth director at 0542. Patient asymptomatic. Otherwise VS stable. [...] 184 Date of Service: 12/29/181834 Status: Signed Java Scala Developer: Kristine Mueller RN (Registered Nurse) No acute [...] 12/29/182143 Date of Service: 12/29/181614 Status: Signed Java Scala Developer: Shar Dawson MD (Physician) [facility] Service: Hospitalist Progress Note Pt: Michael Joshi AGE/SEX: 78 y.o. male ROOM: [address] [place] [address] : 1940 PCP: AMEE URRUTIA ADMIT DATE: [...] other chronic comorbidities who p resents to [facility] ER from [facility] on 12/27 for acute dyspnea/anginal [...] hours. No results for input(s): PHART, PO2ART, STN0DFH, P5AABXLJ, BEART in the last 168 hours. No results for input(s): APTT, INR, PTT in the last 168 hours. Recent Labs Lab 12/27/18 0517 TSH 1.500 Recent Labs Lab 12/27/18 0751 12/27/18 0517 TROPONINI 0.046* 0.048* Results No results found for the last 72 hours. RADIOLOGY: [place] Myocardial Perfusion Spect (stress And Rest) Result [...] and managing patient and counseling/coordination. Dictation software, [employer], used which may contain error for similar [...] Note by Alva Mohamud PT at 12/29/18 3242 Author: Alva Mohamud PT Service: (none) Author Type: Physical Therapist Filed: 12/29/18 2130 Date of Service: 12/29/18 6337 Status: Signed Java Scala Developer: Alva Mohamud PT (Physical Therapist) PHYSICAL THERAPY TREATMENT NOTE PT Received On: 12/29/18 Reason for Treatment: Deconditioning Requires PT Follow Up: Yes Focus for Next Treatment: Formal Balance Assessment Recommendations: SNF Barriers to Discharge: Physical Deficits Impacting Functional Lynn, Self-care Defic its Impacting Functional Lynn, Lack of Family Support/Training PT Ready for [...] within the room. Pt benefit s from pfrx-by-wflq instruction for transfer techinque and does better [...] 12/29/1846 Date of Service: 12/29/18730 Status: Signed Java Scala Developer: Maria De Jesus De La Cruz RN [...] 12/29/18105 Date of Service: 12/29/18100 Status: Signed Java Scala Developer: Rhonda Spann RRT (Certified Respiratory Therapist) Per [...] 12/28/181958 Date of Service: 12/28/181957 Status: Signed Java Scala Developer: Kristine Mueller RN (Registered Nurse) Urine output for shift was 2900 mL. Intake 1000 mL. Kristine Mueller RN onver sarah Transaction, Provider Unknown - 12/28/2018 7:06 PM PDT Nurse Progress Note by Kristine Mueller RN at 12/28/181905 Author: Kristine Mueller RN Service: (none) Author Type: Registered Nurse Filed: 12/28/181908 Date of Service: 12/28/181905 Status: Signed Java Scala Developer: Kristine Mueller RN (Registered Nurse) No acute [...] Service: Hospitalist Author Type: Physician Filed: 12/28/18 1536 Date of Service: 12/28/18944 Status: Addendum Java Scala Developer: Franki Carrizales MD (Physician) Related Notes: Original Note by Franki Carrizales MD (Physician) filed at 12/28/18944 [facility] Service: Hospitalist Progress Note Hospital [...] other chronic comorbidities who p resents to [facility] ER from [facility] on 12/27 for acute dyspnea/anginal [...] 12/28/1840 Date of Service: 12/28/18937 Status: Signed Java Scala Developer: Lyle Vences RN (Registered Nurse) 9:39 AM [...] 12/28/18708 Date of Service: 12/28/18704 Status: Signed Java Scala Developer: Maria De Jesus De La Cruz RN [...] 12/27/181940 Date of Service: 12/27/181858 Status: Signed Java Scala Developer: Kristine Mueller RN (Registered Nurse) Pt transfered [...] Date of Service: 12/27/18 104 Status: Signed Java Scala Developer: Ashley Chappell RN (Registered Nurse) Pacemaker interrogation completed, see report on patient's chart. onver sarah Transaction, Provider Unknown - 12/27/2018 8:06 AM PDT Nurse Progress Note by Pablo Amezcua RN at 12/27/18805 Author: Pablo Amezcua RN Service: (none) Author Type: Registered Nurse Filed: 12/27/18805 Date of Service: 12/27/18805 Status: Signed Java Scala Developer: Pablo Amezcua RN (Registered Nurse) RN spoke with Dr. Carrizales regarding pt's labetolol administration. See VO of hydralazine. Pablo Amezcua RN onver sarah Transaction, Provider Unknown - 12/27/2018 6:45 AM PDT Nurse Progress Note by Rebeka Rodrigues RN at 12/27/18644 Author: Rebeka Rodrigues RN Service: (none) Author Type: Registered Nurse Filed: 12/27/18644 Date of Service: 12/27/18644 Status: Signed Java Scala Developer: Rebeka Rodrigues RN (Registered Nurse) End of shift audit complete. onver sarah Transaction, Provider Unknown - 12/27/2018 5:33 AM PDT Pharmacy Note by Kojo Draper RPH at 12/27/18532 Author: Kojo Draper RPH Service: Pharmacy Author Type: Pharmacist Filed: 12/27/18532 Date of Service: 12/27/18532 Status: Signed Java Scala Developer: Kojo Draper RPH (Pharmacist) Clinical Pharmacy Note: [...] 2019 | Visit | | [address] [facility] | | | | | | [address] [place], [place] | | | | | | [address] | | | | | | | [...] | | | | | performed at [facility], [address] | | | | | | [place] [place], | | | | | | [place] [address] | | | | + + + [...] W | | | | | | [facility], | | | | | | [place] [address] | | | | + + + [...] | | | | | performed at [facility], [address] | | | | | | [facility], | | | | | | [place] [address] | | | | + + + [...] | | | Basophils | performed at [facility], [address] | K/uL | LAB | | | | [place], | | | | | | [place] [address] | | | | + + + [...] EXTERNAL | | | | performed at [facility], [address] | | LAB | | | | [address]esar Leyva, | | | | | | [place] [address] | | | | + + + [...] | | | | | performed at [facility], [address] | | | | | | Cesar [facility], | | | | | | [place] [address] | | | | + + + [...] | | | Basophils | performed at [facility], [address] | K/uL | LAB | | | | [place]esar Le[place], | | | | | | [place] [address] | | | | + + + [...] EXTERNAL | | | | performed at [facility], [address] | | LAB | | | | [address] Le[address], | | | | | | [place] [address] | | | | + + + [...] | | | | | performed at [facility], [address] | | | | | | [facility], | | | | | | [place] [address] | | | | + + + [...] | | | Basophils | performed at [facility], [address] | K/uL | LAB | | | | Cesar Leyva, | | | | | | [place] [address] | | | | + + + [...] EXTERNAL | | | | performed at [facility], [address] | | LAB | | | | Cesar Leyva, | | | | | | [place] [address] | | | | + + + [...] | | | | | performed at [facility], [address] | | | | | | [facility], | | | | | | [place] [address] | | | | + + + [...] | | | Basophils | performed at [facility], [address] | K/uL | LAB | | | | Cesar Leyva, | | | | | | [place] [address] | | | | + + + [...] EXTERNAL | | | | performed at [facility], [address] | | LAB | | | | Cesar Leyva, | | | | | | [place] [address] | | | | + + + [...] W | | | | | | [facility], | | | | | | [place] [address] | | | | + + + [...] | | | Basophils | performed at [facility], [address] | K/uL | LAB | | | | Cesar Leyva, | | | | | | [place] [address] | | | | + + + [...] EXTERNAL | | | | performed at [facility], [address] | | LAB | | | | Cesar Leyva, | | | | | | [place] [address] | | | | + + + [...] | | | | | performed at [facility], [address] | | | | | | [facility], | | | | | | [place] [address] | | | | + + + [...] | | | | | | at [facility];[address] | | | | [address];[place] [address] | | | | + + + [...] | | | Basophils | performed at [facility], [address] | K/uL | LAB | | | | Cesar Leyva, | | | | | | [place] [address] | | | | + + + [...] EXTERNAL | | | | performed at [facility], [address] | | LAB | | | | Cesar Leyva, | | | | | | [place] [address] | | | | + + + [...] | | | | | performed at [facility], [address] | | | | | | Cesar Autumn, | | | | | | [place] [address] | | | | + + + [...] | | | Basophils | performed at [facility], [address] | K/uL | LAB | | | | Cesar Tang, | | | | | | [place] [address] | | | | + + + [...] EXTERNAL | | | | performed at [facility], [address] | | LAB | | | | Cesar Leyva, | | | | | | [place] [address] | | | | + + + [...] | | | | | performed at [facility], [address] | | | | | | [facility], | | | | | | [place] [address] | | | | + + + [...] | | | Basophils | performed at [facility], [address] | K/uL | LAB | | | | Cesar Leyva, | | | | | | [place] [address] | | | | + + + [...] EXTERNAL | | | | performed at [facility], [address] | | LAB | | | | Cesar Leyva, | | | | | | [place] [address] | | | | + + + [...] | | | | | performed at [facility], [address] | | | | | | [facility], | | | | | | [place] [address] | | | | + + + [...] | | | Basophils | performed at [facility], [address] | K/uL | LAB | | | | Cesar Autumn, | | | | | | [place] [address] | | | | + + + [...] EXTERNAL | | | | performed at [facility], [address] | | LAB | | | | Cesar Leyva, | | | | | | [place] [address] | | | | + + + [...] | | | | | performed at [facility], [address] | | | | | | [facility], | | | | | | [place] [address] | | | | + + + [...] | | | Reticulocyt | performed at [facility];[address] | | LAB | | | [address] | Renetta [address];[place], [place] | | | | | | [address] | | | | + + + [...] | | | ------REPORT ADDENDED------ INDICATIONS acute NM | | | CONCLUSIONS 1. This was [...] Aortic Valve: | | | There is nnna-tl-slwlvosn aortic regurgitation. Mitral Valve: Mild | | [...] TR Vmax: 3.49 m/s | | | Automobile Sales Representative: ROSY Authenticated by: Pedrito Taylor MD Report | | | Date/Time: 12-27-2018 13:58:10 | | + + + + + | Procedure Note | + + | Edgardo Piper Conversion - 06/01/2019 8:17 PM PDT Patient Name: Kel Joshi of | | : 1940 Performing Physician: Pedrito Taylor | | MD ------REPORT | | ADDENDED------INDICATIONS acute NM CONCLUSIONS 1. This was a | | [...] valve is mildly calcified.Aortic Valve: There is exoj-ar-lneoqnmb aortic | | regurgitation.Mitral Valve: Mild mitral [...] mlLAESV Index (A-L): 109.85 ml/m2LAAs A2C: 64.13 ct5JMOPL A-L A2C: 351.26 | | mlLALs A2C: 9.93 cmLAAs A4C: 45.52 qk9UJIBF A-L A4C: 173.98 mlLALs A4C: 10.11 | | cmTAPSE: 1.10 cmHR: 80.22 BPMAV maxP.70 mmHgAV meanP.31 mmHgAV Vmax: | | 1.55 m/Davie Vmean: 1.10 m/Davie VTI: 33.13 cmAVA Vmax: 2.73 cm2AVA (VTI): 2.82 | | bv6MDGZ Vmax: 0.00 cm2/m2AVAI (VTI): 0.00 cm2/m2LVCI Dopp: 2.84 l/ycqc2NLTL Dopp: | | 6.45 l/minHR: 68.91 BPMLVOT maxP.89 mmHgLVOT meanP.48 mmHgLVSI Dopp: | | 41.23 ml/m2LVSV Dopp: 93.59 mlLVOT Vmax: 0.85 m/sLVOT Vmean: 0.58 m/sLVOT VTI: | | 18.72 cmSeptal e': 0.08 m/sLateral e': 0.09 m/sHR: 59.71 BPMPV maxP.15 | | mmHgPV meanP.55 mmHgPV Vmax: 0.53 m/sPV Vmean: 0.34 m/sPV VTI: 10.42 cmRV | | S': 0.06 m/sTR maxP.74 mmHgTR Vmax: 3.49 m/s Automobile Sales Representative: MWAuthenticated by: | | Pedrito Taylor MDReport [...] |TR Vmax: 3.49 m/s | | | |Automobile Sales Representative: MW | |Authenticated by: Pedrito Taylor MD [...] | | | | | | at [facility] [address] | | | | | | [address];[place] [address] | | | | + + + [...] | | LAB | | | | [facility];[address] [facility] | | | | | | [facility];[place] [address] | | | | + + + [...] | | | | | [place] [address] | | | | + + + [...] | | | | | | at [facility] [address] | | | | | | [address]vd;[place] [address] | | | | + + + [...] | | | Basophils | performed at [facility], [address] | K/uL | LAB | | | | [place], | | | | | | [place] [address] | | | | + + + [...] | | | | | [place] [address] | | | | + + + [...] EXTERNAL | | | | performed at [facility], [address] | | LAB | | | | [address] [place], | | | | | | [place] [address] | | | | + + + [...] EXTERNAL | | | | performed at [facility], [address] | | LAB | | | | [place], | | | | | | [place] [address] | | | | + + + [...] | | | | | performed at [facility], [address] | | | | | | [facility], | | | | | | [place] [address] | | | | + + + [...] | | | External | performed at [facility], [address] | | LAB | | | | [place], | | | | | | [place] [address] | | | | + + + [...] | | | Cholesterol | performed at [facility], [address] | | LAB | | | , | [address] [place], | | | | | Calculated, | [place] [address] | | | | | External | [...] | | | | | performed at [facility], [address] | | | | | | [place], | | | | | | [place] [address] | | | | + + + [...] + + | Historically converted procedure from [facility] Epic environment | EXTERNAL LAB | + [...]
--- OUTSIDE RECORDS SUMMARY | ~2019-10-20 | XMS | Encounter Summary ---
Demographics + + + | Address | [address] | | | [place] [address] | + + + | Home Phone | | + + + | Preferred Language | Unknown | + + + | Marital Status | | + + + | Voodoo Affiliation | 1041 | + + + [...] Team Providers + +------+ + | Care Manager Enterprise Content Management Name | Role | Phone | [...] [address] | | | | | [place], | [address] [place], | | | | | [place] [address] | [place] [address] | | | | | [phone] | [phone] | | | | | | | [...] | | | | | | [address] [place], [place] | | | | | | [address] | | | | | | | [...]
--- OUTSIDE RECORDS SUMMARY | ~2019-10-20 | XMS | Encounter Summary ---
Demographics + + + | Address | [address] | | | [place] [address] | + + + | Home Phone [...] Team Providers + +------+ + | Care Neurology Physician Assistant Name | Role | Phone | + +------+ + | Kushal Costa MD | PCP | | + +------+ + Encounter Details +--------+ + + + + | Date | Type | Department | Care Team | Description | +--------+ + + + + | 03/16/ | Orders Only | [facility] | Danny Gandara MD | | | 2018 | | NEPHROLOGY [place] | [address] [place] | | | | | [address] [place] | [address] [place], [place] | | | | | [address] [place], [place] | [address] | | | | | [address] | | | | | | [phone] | | | +--------+ + + + [...] Visit | | [address] [facility] | | | | | | [address] [place] | | | | | | [address] | | | | | | | [...]
--- OUTSIDE RECORDS SUMMARY | ~2019-10-20 | XMS | Encounter Summary ---
Demographics + + + | Address | [address] | | | [place] [address] | + + + | Home Phone | | + + + | Preferred Language | Unknown | + + + | Marital Status | | + + + | Hindu Affiliation | 1041 | + + + | Race | Unknown | + + + | Ethnic Group | Unknown | + + + Author + + + | Author | [facility] | | | and [place] | + + + | Organization | [facility] | | [...] Team Providers + +------+ + | Care News Anchor Name | Role | Phone | + +------+ + | Kushal Costa MD | PCP | | + +------+ + Encounter Details +--------+ + + + + | Date | Type | Department | Care Team | Description | +--------+ + + + + | 11/07/ | Orders Only | [facility] | Danny Gandara MD | | | 2017 | | NEPHROLOGY [place] | [address] [place] | | | | | [address] [place] | [address] [place], [place] | | | | | [address] [place], [place] | [address] | | | | | [address] | | | | | | [phone] | | | +--------+ + + + [...] | | | | | [address] [facility] | | | | | | [address] | | | | | | | [...]
--- OUTSIDE RECORDS SUMMARY | ~2019-10-20 | XMS | Clinical Summary ---
Demographics + + + | Address | [address] | | | [place] [address] | + + + | Home Phone | | + + + | Preferred Language | Unknown | + + + | Marital Status | | + + + | Anglican Affiliation | 1041 | + + + | Race | Unknown | + + + | Ethnic Group | Unknown | + + + Author + + + | Author | [facility] (Historical as of | | | 06-05-19) | + + + | Organization | [facility] (Historical as of | | | 06-05-19) [...] Providers + +------+ + | Care Senior Sql Server Dba Name | Role | Phone | + [...] renal failure, stage 3 (moderate) ([facility]) | 02/15/2019 | + + + | Pulmonary hypertension ([facility]) | 12/27/2018 | + + + | Right heart failure ([facility]) | 12/27/2018 | + + + | [...] kidney disease) stage 3, GFR 30-59 ml/min ([facility]) | 10/27/2017 | + + + | [...] + + | IZZY (acute kidney injury) ([facility]) | 01/07/20 | | | | 19 [...] | | SCIENTIFIC | | 2021 | /[id number] | | on 03/19/2019 by Caitlyn, | [...] +------+-------+ + | MEDICARE | MEDICA | [id number] | | | [address] | | | RE | | | | [place] [address] | | | IP-OP | | | [...] | Self | [birth year] | Home: | [address] [place] [address] ST | | | al/Fam | | 1941 | [phone] | [place] | | | lissy | | | [birth year] | [address] | + +--------+ +--------+ + +
--- OUTSIDE RECORDS SUMMARY | ~2019-10-20 | XMS | Encounter Summary ---
Demographics + + + | Address | [address] | | | [place] [address] | + + + | Home Phone | | + + + | Preferred Language | Unknown | + + + | Marital Status | | + + + | Moravian Affiliation | 1041 | + + + | Race | Unknown | + + + | Ethnic Group | Unknown | + + + Author + + + | Author | [facility] | | | and [place] | + + + | Organization | [facility] | | | [...] Team Providers + +------+ + | Care Travel Sales Consultant Name | Role | Phone | + [...] | | [address] | [address] [place] | | | | | [place], [place] | [address] | | | | | [address] | | | | | | [phone] | | | +--------+ + + + [...] 2019 | Visit | | [address] [facility] | | | | | | [address] [facility] | | | | | | [address] | | | | | | | [...] 8.22 cm AR Dec | | | Jasper: 1.93 m/s2 AR Dec Time: 2330.38 ms [...] | maxP.04 mmHg TR Vmax: 3.77 m/s Roofing Plant Supervisor: MIGEL | | | Authenticated by: Sparkle Brady Report Date/Time: 01-24-2017 | | | 00:37:15 | | + + + + + | Procedure Note | + + | Edgardo Piper Conversion - 06/10/2019 6:55 PM PDT Patient Name: Kel Joshi of | | : 1940 Performing Physician: Sparkle | | [facility] INDICATIONS------ | | -----Heart failure CONCLUSIONS [...] cmLVIDd: 5.77 cmLVPWd: 1.18 cmLVOT Area: 3.98 vd2XCFC Diam: 2.25 cm%FS: | | 22.85 %EF(Teich): [...] | Index (A-L): 63.36 ml/m2LAAs A2C: 31.84 hs2XWLZR A-L A2C: 132.77 mlLALs A2C: | | 6.48 cmLAAs A4C: 34.80 sm7FZZZK A-L A4C: 118.78 mlLALs A4C: 8.65 cmRAAs: 49.96 | | ry2MPDPG A-L: 259.12 mlRAESV MOD: 251.38 mlRALs: 8.22 cmAR Dec Jasper: 1.93 | | m/s2AR Dec Time: 2330.38 msAR maxP.34 mmHgAR PHT: 675.81 msAR Vmax: 4.50 | | m/Davie maxP.00 mmHgAV meanP.60 mmHgAV Vmax: 1.58 m/Davie Vmean: 0.98 m/Davie | | VTI: 29.76 cmAVA Vmax: 2.61 cm2AVA (VTI): 2.12 qj5UWJB Vmax: 0.00 cm2/m2AVAI | | (VTI): 0.00 cm2/m2LVOT maxP.35 mmHgLVOT meanP.30 mmHgLVSI Dopp: 27.56 | | ml/m2LVSV Dopp: 63.13 mlLVOT Vmax: 1.03 m/sLVOT Vmean: 0.68 m/sLVOT VTI: 15.85 | | cmMR dp/dt: 1864.01 mmHg/sMV A Roberto: 0.02 m/sMV DecT: 162.94 msMV E Roberto: 1.53 | | m/sMV E/A Ratio: 66.42MV PHT: 47.25 msMVA By PHT: 4.65 tf4Ycirru e': 0.05 | | m/sSeptal E/e': 30.24Lateral e': 0.10 m/sLateral E/e': 14.53RAP: 20 mmHgRVSP: | | 77.04 mmHgTR maxP.04 mmHgTR Vmax: 3.77 m/s Roofing Plant Supervisor: GALLOuthenticated by: | | Sparkle NavarrohaskellraReport Date/Time: 01-24-2017 00:37:15 IMPRESSION: 1. The left [...] | |RALs: 8.22 cm | |AR Dec Jasper: 1.93 m/s2 | |AR Dec Time: 2330.38 [...] |TR Vmax: 3.77 m/s | | | |Roofing Plant Supervisor: MIGEL | |Authenticated by: Sparkle Brady | [...]
--- OUTSIDE RECORDS SUMMARY | ~2019-10-20 | XMS | Encounter Summary ---
Demographics + + + | Address | [address] | | | [place] [address] | + + + | Home Phone [...] Providers + +------+ + | Care Manager Performance Improvement Name | Role | Phone | + +------+ + | Kushal Costa MD | PCP | | + +------+ + Encounter Details +--------+ + + + + | Date | Type | Department | Care Team | Description | +--------+ + + + + | 07/26/ | Documentati | [facility] | Tobias, | | | 2019 | on | NEPHROLOGY [place] | [address] [place] | | | | | [address] [place] | [place] | | | | | [address] [facility] [place] | | | | | | [address] | | | | | | [phone] | | | +--------+ + + + [...] | | | | | | [address] [place], [place] | | | | | | [address] | | | | | | | [...]
--- OUTSIDE RECORDS SUMMARY | ~2019-10-20 | XMS | Encounter Summary ---
Demographics + + + | Address | [address] | | | [place] [address] | + + + | Home Phone | | + + + | Preferred Language | Unknown | + + + | Marital Status | | + + + | Yazidism Affiliation | 1041 | + + + | Race | Unknown | + + + | Ethnic Group | Unknown | + + + Author + + + | Author | [facility] | | | and [place] | + + + | Organization | [facility] | | | [...] Team Providers + +------+ + | Care Strategic Sourcing Consultant Name | Role | Phone | + +------+ + | Kushal Costa MD | PCP | | + +------+ + Encounter Details +--------+ + + + + | Date | Type | Department | Care Team | Description | +--------+ + + + + | 11/20/ | Orders Only | [facility] | Conversion | | | 2019 | | NEPRHOLOGY [place] | Transaction, | | | | | [address] | Provider Unknown | | | | | [address] [place], [place] | [phone] | | | | | [address] | | | | | | [phone] | | | +--------+ + + + [...] 2019 | Visit | | [address] [facility] | | | | | | [address] [place] | | | | | | [address] | | | | | | | [...] | | | LAB | | | [place] | | | | | + + [...]
--- OUTSIDE RECORDS SUMMARY | ~2019-10-20 | XMS | Encounter Summary ---
Demographics + + + | Address | [address] | | | [place] [address] | + + + | Home Phone [...] Team Providers + +------+ + | Care Client Service Associate Name | Role | Phone | + +------+ + | Kushal Costa MD | PCP | | + +------+ + Encounter Details +--------+ + + + + | Date | Type | Department | Care Team | Description | +--------+ + + + + | 03/18/ | Orders Only | [facility] | Danny Gandara MD | | | 2017 | | NEPHROLOGY [place] | [address] [place] | | | | | [address] [place] | [address] [place], [place] | | | | | [address] [place], [place] | [address] | | | | | [address] | | | | | | [phone] | | | +--------+ + + + [...] 2019 | Visit | | [address] [facility] | | | | | | [address] [facility] | | | | | | [address] | | | | | | | [...] | | | LAB | | | SER[place] | | | | | + + [...]
--- OUTSIDE RECORDS SUMMARY | ~2019-10-20 | XMS | Encounter Summary ---
Demographics + + + | Address | [address] | | | [place] [address] | + + + | Home Phone [...] Team Providers + +------+ + | Care Bug Trimmer Name | Role | Phone | + +------+ + | Kushal Costa MD | PCP | | + +------+ + Encounter Details +--------+ + + + + | Date | Type | Department | Care Team | Description | +--------+ + + + + | 06/29/ | Orders Only | [facility] | Danny Gandara MD | | | 2017 | | NEPHROLOGY [place] | [address] [place] | | | | | [address] [place] | [address] [place], [place] | | | | | [address] [place], [place] | [address] | | | | | [address] | | | | | | [phone] | | | +--------+ + + + [...] 2020 | Visit | | [address] [facility] | | | | | | [address] [place] | | | | | | [id number] | | | | | | | [...]
--- OUTSIDE RECORDS SUMMARY | ~2019-10-20 | XMS | Encounter Summary ---
Demographics + + + | Address | [address] | | | [place] [address] | + + + | Home Phone [...] + +------+ + | Care Director Of Physiotherapy Services Name | Role | Phone | + +------+ + | Kushal Costa MD | PCP | | + +------+ + Encounter Details +--------+ + + + + | Date | Type | Department | Care Team | Description | +--------+ + + + + | 09/23/ | Orders Only | [facility] | Conversion | | | 2018 | | NEPHROLOGY [place] | Transaction, | | | | | [address] [place] | Provider Unknown | | | | | [facility] [place] | | | | | | [address] | (Fax) | | | | | [phone] | | | +--------+ + + + [...] 2019 | Visit | | [address] [facility] | | | | | | [address] [place] | | | | | | [address] | | | | | | | [...]
--- OUTSIDE RECORDS SUMMARY | ~2019-10-20 | XMS | Encounter Summary ---
Demographics + + + | Address | [address] | | | [place] [address] | + + + | Home Phone [...] Team Providers + +------+ + | Care Isolation Washer Name | Role | Phone | + [...] | | | | [place], | [place] | | | | | | [place] [address] | [address] Phone: | | | | | | Phone: | [phone] | | | | | | [phone] | Fax: | | | | | | Fax: | [phone] | | | | | | [phone] | | +--------+--------+ + + + + Encounter Details +--------+---------+ + + + | Date | Type | Department | Care Team | Description | +--------+---------+ + + + | 06/11/ | Office | [facility] | Anastasia, | Low back pain, | | 2017 | Visit | PHYSIATRY [address] | KOKI Vasquez [address] | unspecified back | | | | [place], | AAYUSH RICARDO, | pain laterality, | | | | [place] [address] | [place] [address] | unspecified | | | | [phone] | [phone] | chronicity, with | | | | [...] of blood sugars if you are diabetic. forest pathologist risk can lead to osteoporosis which is [...] of the procedure you must provide a cart driver to take you home. For all procedur es it is recommended that someone else drive you home. documented in this encounter Progress Notes Christina Oconnor PA-C - 06/11/2018 8:40 AM PDTFormatting of this note might be differe nt from the original. Christina Oconnor PA-C [address] [facility], [address] [place] [address] FAX: PHYSICAL MEDICINE AND REHABILITATION H&P CHIEF [...] has no apparent deficits with short or mcfp memory. He has appropriate fund of knowledge [...] ral foraminal stenosis and central canal stenosis eoum-lq-zyrcavrb at L4-L5. ASSESSMENT: 1. Low back pain, [...] any procedure. He does report seeing his gre tutor on June 30 in which they w [...] | | [address] [facility] | | | | | | 160 [place], [place] | | | | | | [id number] | | | | | | | [...]
--- OUTSIDE RECORDS SUMMARY | ~2019-10-20 | XMS | Encounter Summary ---
Demographics + + + | Address | [address] | | | [place] [address] | + + + | Home Phone [...] Providers + +------+ + | Care Hand Bunch Maker Name | Role | Phone | [...] + + | 07/06/ | Procedure | [facility] | Sparkle Brady, | Pacemaker | | 2019 | visit | CARDIOLOGY [place]SA | [address] | | | | | [address] | [place], [place] | | | | | [facility] [place] [facility] | [address] | | | | | [place] | | | | | | [address] | | | | | | [phone] | | | +--------+ + + + [...] 2019 | Visit | | [address] [facility] [place] | | | | | | 160 [place] | | | | | | [address] | | | | | | | [...] electrophysiology provider: None | | | Device silk hanger: [employer] Device type: | | | Single [...]
--- OUTSIDE RECORDS SUMMARY | ~2019-10-20 | XMS | Encounter Summary ---
Demographics + + + | Address | [address] | | | [place] [address] | + + + | Home Phone [...] Team Providers + +------+ + | Care Chair Caner Name | Role | Phone | + [...] [place] | | | | | [phone] | [place] [address] | | +--------+ + + + + [...] 2019 | Visit | | [address] [facility] [place] | | | | | | 160 [place], [place] | | | | | | [address] | | | | | | | [...]
--- OUTSIDE RECORDS SUMMARY | ~2019-10-20 | XMS | Encounter Summary ---
Demographics + + + | Address | [address] | | | [place] [address] | + + + | Home Phone [...] Team Providers + +------+ + | Care Fill Plant Operator Name | Role | Phone | [...] | (Primary Dx) | | | | [place], | [place], [place] | | | | | [place] [address] | [address] | | | | | [phone] | | | +--------+ + + + [...] 2019 | Visit | | [address] [facility] [place] | | | | | | 160 [place] | | | | | | [address] | | | | | | (Fax) [...]
--- OUTSIDE RECORDS SUMMARY | ~2019-10-20 | XMS | Encounter Summary ---
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/ | | [address] | [phone] | initial encounter; | | 2018 | | [place], [place] | | Stage 3 chronic | | | | [address] | | kidney disease (HCC) | | | | [phone] | | | +--------+ + + + [...] Date of Service: 03/20/19 075 Status: Addendum Electric Motor Rebuilder: Lila Brady MD (Physician) Related Notes: Original Note by Lila Brady MD (Physician) filed at 03/20/19 0756 [facility] Service: Cardiology Discharge Summary Date of Admission: [...] is 78-year-old male who was transferred [facility] to [facility] to pacemaker battery at end-of-life. Patient [...] will be scheduled for next Friday in [place] cardiology clinic. 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 No acute changes during shif t. End of shift chart check complete. Teresa Alan RN. onver sarah Transaction, Provider Unknown - 03/19/2019 4:04 PM PDT Progress Notes by Darren Resendiz RN at 03/19/19 160 Author: Darren Resendiz RN Service: Interventional Cardiology Author Type: Registered Nu rse Filed: 03/19/19 160 Date of Service: 03/19/19 160 Status: Signed Electric Motor Rebuilder: Darren Resendiz RN (Registered Nurse) Anesthesia will be monitoring and documenting vitals, hemodynamics, and medication administ ration onver sarah Transaction, Provider Unknown - 03/19/2019 3:52 PM PDT Progress Notes by Meri Carlton RD at 03/19/191551 Author: Meri Carlton RD Service: (none) Author Type: Registered Dietitian Filed: 03/19/191551 Date of Service: 03/19/191551 Status: Signed Electric Motor Rebuilder: Meri Carlton RD (Registered Dietitian) 03/19/19 1439 Subjective Timepoint Admit (PI) Diet Experience Self-selected [...] abrasions to right el bow and RLE. director camp is following. Anthropometrics Height (Ht listed at [...] Date of Service: 03/19/19 152 Status: Signed Electric Motor Rebuilder: Kye Saxena DO (Physician) [facility] Service: Hospitalist Progress Note Pt: Michael Joshi AGE/SEX: 78 y.o. male : 1940 ROOM: [facility]9/4459-1 TODAY'S DATE: 03/19/2019 Hospital Day: LOS: 1 [...] Testing performed at [facility], [address] [place] [address] MORPHOLOGY Date Value Ref Range Status 03/18/2019 [...] 03/19/2019 8 5 - 20 mmol/L Final @PAXBCIOK0F@ HDL CHOL Date Value Ref Range Status [...] Testing performed at [facility], [address] [place] [address] TOTAL PROTEIN Date Value Ref Range Status [...] Management by Radha Flor RN at 03/19/19 6659 Author: Radha Flor RN Service: (none) Author Type: Registered Nurse Filed: 03/19/19 9260 Date of Service: 03/19/19 1446 Status: Signed Electric Motor Rebuilder: Radha Flor RN (Registered Nurse) 03/19/19 1400 [...] Oriented Prior functional status independent Power of Productivity Engineer No Anticipated Discharge Plan Post Acute Care [...] pacemaker replaced. Pt is a transfer from [facility]. Pt is from [place], [place]. Patient's PCP is: Kushal Costa Patient's [...] 03/19/1923 Date of Service: 03/19/19720 Status: Signed Electric Motor Rebuilder: Lila Brady MD (Physician) [facility] Service: Cardiology Progress Note Name of Byproducts Extractor: Lila Brady MD I have seen the patient on 03/19/2019, continues to be hemodynamically stable. Transferred from [facility]. Had syncopal episode yesterday while [...] tablet 1 tablet, 1 tablet, Oral, Q6H CT N, Shar Dawson MD metolazone tablet 5 [...] extremity US: Pacemaker 2007: Guidant 1190, SN [id number] Last time interrogated 02/04/2018 Ventricular paced 41%. [...] 03/19/19650 Date of Service: 03/19/19649 Status: Signed Electric Motor Rebuilder: Akil Castanon RN (Registered Nurse) Pt with uneventful night. Pt in rate-controlled a-fib overnight; VSS. Plan for pacemaker placement with Dr. Brady today. 24 hour chart review complete. onver sarah Transaction, Provider Unknown - 03/18/2019 6:26 PM PDT Pharmacy Note by Blanca Muller RPH at 03/18/191825 Author: Blanca Muller RPH Service: Pharmacy Author Type: Pharmacist Filed: 03/18/191825 Date of Service: 03/18/191825 Status: Signed Electric Motor Rebuilder: Blanca Muller RPH (Pharmacist) Clinical Pharmacy Note: [...] appropriate dosing per renal function. Blanca Muller [facility] 03/18/2019 6:26 PM Larry armstrong in [...] | | | | | | [address] [place], [place] | | | | | | [address] | | | | | | | [...] | performed at [facility], [address] | K/uL | LAB | | | | [address], | | | | | | [place] [address] | | | | + + + [...] | performed at [facility], [address] | | | | | | [address], | | | | | | [place] [address] | | | | + + + [...] 10 mL. IMPLANTED | | | PACEMAKER: [place] scientific accolade MRI SRIS#1, model L310, | | | serial #[id number]. 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 PROGRAM PARAMETERS: Pacemaker is programmed at | [...] mL. | | | | IMPLANTED PACEMAKER: [place] scientific accolade MRI SRIS#1, model L310, | | serial #[id number]. The patient had single lead RV pacemaker which is Guidant | | Flextend IS bipolar positive, 59 cm, model number is 4088, serial #[id number]. | | | | PROGRAM PARAMETERS: Pacemaker [...] | | | | | performed at [facility];[address] | | | | | | [address];[place], [place] | | | | | | [address] | | | | + + + [...] | performed at [facility], [address] | K/uL | LAB | | | | [address], | | | | | | [place] [address] | | | | + + + [...] | performed at [facility], [address] | | LAB | | | | [address], | | | | | | [place] [address] | | | | + + + [...] | performed at [facility], [address] | | LAB | | | | [address], | | | | | | [place] [address] | | | | + + + [...] | performed at [facility], [address] | | | | | | [facility], | | | | | | [place] [address] | | | | + + + [...] | performed at [facility], [address] | | | | | | [facility], | | | | | | [place] [address] | | | | + + + [...] (500), | | | | | | editor farm journal Joel Mclean | | | | | [...] EXTERNAL | | | | performed at [facility];[address] | | LAB | | | [address];[place], [place] | | | | | | [address] | | | | + + + [...] EXTERNAL | | | | performed at [facility];[address] | | LAB | | | | [address];[place] | | | | | | [address] | | | | + + + [...]
--- OUTSIDE RECORDS SUMMARY | ~2019-10-20 | XMS | Encounter Summary ---
Demographics + + + | Address | [address] | | | [place] [address] | + + + | Home Phone | | + + + | Preferred Language | Unknown | + + + | Marital Status | | + + + | Holiness Affiliation | 1041 | + + + | Race | Unknown | + + + | Ethnic Group | Unknown | + + + Author + + + | Author | [facility] | | | and [place] | + + + | Organization | [facility] | | | [...] Team Providers + +------+ + | Care Supervisor Sunglasses Name | Role | Phone | + +------+ + | Kushal Costa MD | PCP | | + +------+ + Encounter Details +--------+ + + + + | Date | Type | Department | Care Team | Description | +--------+ + + + + | 09/23/ | Orders Only | [facility] | Conversion | | | 2018 | | NEPHROLOGY [place] | Transaction, | | | | | [address] [place] | Provider Unknown | | | | | [address] [facility] [place] | | | | | | [address] | (Fax) | | | | | [phone] | | | +--------+ + + + [...] | Visit | | [address] [facility] | | | | | | 160 [place] | | | | | | [address] | | | | | | | [...]
--- OUTSIDE RECORDS SUMMARY | ~2019-10-20 | XMS | Encounter Summary ---
Demographics + + + | Address | [address] | | | [place] [address] | + + + | Home Phone [...] Team Providers + +------+ + | Care Clip Bolter And Wrapper Name | Role | Phone | + +------+ + | Kushal Costa MD | PCP | | + +------+ + Encounter Details +--------+ + + + + | Date | Type | Department | Care Team | Description | +--------+ + + + + | 01/28/ | Orders Only | [facility] | Conversion | | | 2019 | | NEPHROLOGY [place] | Transaction, | | | | | [address] [place] | Provider Unknown | | | | | [address] [facility] [place] | | | | | | [address] | (Fax) | | | | | [phone] | | | +--------+ + + + [...] | | | | | | [address] [place] | | | | | | [address] | | | | | | | [...]
--- OUTSIDE RECORDS SUMMARY | ~2019-10-20 | XMS | Clinical Summary ---
Demographics + + + | Address | [address] | | | [place] [address] | + + + | Home Phone | | + + + | Preferred Language | Unknown | + + + | Marital Status | | + + + | Cheondoism Affiliation | 1041 | + + + | Race | Unknown | + + + | Ethnic Group | Unknown | + + + Author + + + | Author | [facility] (Historical as of | | | 06-05-19) | + + + | Organization | [employer] (Historical as of | | | 06-05-19) [...] Team Providers + +------+ + | Care Annual Giving Director Name | Role | Phone | [...] of chronic renal failure, stage 3 (moderate) ([facility]) | 02/15/2019 | + + + | Pulmonary hypertension ([facility]) | 12/27/2018 | + + + | Right heart failure ([facility]) | 12/27/2018 | + + [...] kidney disease) stage 3, GFR 30-59 ml/min ([facility]) | 10/27/2017 | + + [...] + + | IZZY (acute kidney injury) ([facility]) | 01/07/20 | | | [...] | | SCIENTIFIC | | 2021 | /[id number] | | on 03/19/2019 by Caitlyn, | [...] +------+-------+ + | MEDICARE | MEDICA | [id number] | | | [address] | | | RE | | | | [place] [address] | | | IP-OP | | | [...] | Self | [birth year] | Home: | [address] [place] [address] ST | | | al/Fam | | 1941 | [phone] | [place] | | | lissy | | | [birth year] | [address] | + +--------+ +--------+ + +
--- OUTSIDE RECORDS SUMMARY | ~2019-10-20 | XMS | Encounter Summary ---
Demographics + + + | Address | [address] | | | [place] [address] | + + + | Home Phone | | + + + | Preferred Language | Unknown | + + + | Marital Status | | + + + | Scientologist Affiliation | 1041 | + + + | Race | Unknown | + + + | Ethnic Group | Unknown | + + + Author + + + | Author | [facility] | | | and [place] | + + + | Organization | [facility] | | | and [...] Team Providers + +------+ + | Care Catastrophe Claims Supervisor Name | Role | Phone | + +------+ + | Kushal Costa MD | PCP | | + +------+ + Encounter Details +--------+ + + + + | Date | Type | Department | Care Team | Description | +--------+ + + + + | 04/17/ | Orders Only | [facility] | Danny Gandara MD | | | 2018 | | NEPHROLOGY [place] | [address] [place] | | | | | [address] [place] | 160 [place], [place] | | | | | 160 [place], [place] | [address] | | | | | [address] | | | | | | [phone] | | | +--------+ + + + [...] 2020 | Visit | | [address] [facility] | | | | | | 160 [place] | | | | | | [address] | | | | | | | [...]
--- OUTSIDE RECORDS SUMMARY | ~2019-10-20 | XMS | Encounter Summary ---
Demographics + + + | Address | [address] | | | [place] [address] | + + + | Home Phone [...] Providers + +------+ + | Care Occupational Therapy Manager Name | Role | Phone | + +------+ + | Kushal Costa MD | PCP | | + +------+ + Encounter Details +--------+ + + + + | Date | Type | Department | Care Team | Description | +--------+ + + + + | 12/19/ | Orders Only | [facility] | Danny Gandara MD | | | 2017 | | NEPHROLOGY [place] | [address] [place] | | | | | [address] [place] | [address] [place], [place] | | | | | [address] [place], [place] | [address] | | | | | [address] | | | | | | [phone] | | | +--------+ + + + [...] | Visit | | [address] [facility] | | | | | | [facility] | | | | | | [address] | | | | | | | [...] | | | LAB | | | SURINAMESE | | | | | + + [...]
--- OUTSIDE RECORDS SUMMARY | ~2019-10-20 | XMS | Encounter Summary ---
Demographics + + + | Address | [address] | | | [place] [address] | + + + | Home Phone | | + + + | Preferred Language | Unknown | + + + | Marital Status | | + + + | Yazidi Affiliation | 1041 | + + + | Race | Unknown | + + + | Ethnic Group | Unknown | + + + Author + + + | Author | [facility] | | | and [place] | + + + | Organization | [facility] | [...] Team Providers + +------+ + | Care House Mover Helper Name | Role | Phone | + +------+ + | Kushal Costa MD | PCP | | + +------+ + Encounter Details +--------+ + + + + | Date | Type | Department | Care Team | Description | +--------+ + + + + | 10/23/ | Orders Only | [facility] | Danny Gandara MD | | | 2018 | | NEPHROLOGY [place] | [address] [place] | | | | | [address] [place] | [address] [place], [place] | | | | | [address] [place], [place] | [address] | | | | | [address] | | | | | | [phone] | | | +--------+ + + + [...] 2020 | Visit | | [address] [facility] | | | | | | 160 [place] | | | | | | [address] | | | | | | | [...] | | | LAB | | | LAO | | | | | + + [...]
--- OUTSIDE RECORDS SUMMARY | ~2019-10-20 | XMS | Encounter Summary ---
Demographics + + + | Address | [address] | | | [place] [address] | + + + | Home Phone | | + + + | Preferred Language | Unknown | + + + | Marital Status | | + + + | Mandaen Affiliation | 1041 | + + + | Race | Unknown | + + + | Ethnic Group | Unknown | + + + Author + + + | Author | [facility] | | | and [place] | + + + | Organization | [facility] | [...] Team Providers + +------+ + | Care Pump Installer Name | Role | Phone | + +------+ + | Kushal Costa MD | PCP | | + +------+ + Encounter Details +--------+ + + + + | Date | Type | Department | Care Team | Description | +--------+ + + + + | 11/20/ | Orders Only | [facility] | Conversion | | | 2019 | | NEPRHOLOGY [place] | Transaction, | | | | | [address] | Provider Unknown | | | | | [address] [place], [place] | [phone] | | | | | [address] | | | | | | [phone] | | | +--------+ + + + [...] 2019 | Visit | | [address] [facility] | | | | | | 160 [place] | | | | | | [address] | | | | | | | [...] | | | LAB | | | HAITIAN | | | | | + + [...]
--- OUTSIDE RECORDS SUMMARY | ~2019-10-20 | XMS | Encounter Summary ---
Demographics + + + | Address | [address] | | | [place] [address] | + + + | Home Phone [...] + +------+ + | Care Child Care Name | Role | Phone | + [...] [place] | | | | | [phone] | [place] [address] | | +--------+ + + + + [...] [address] [facility] [place] | | | | | | [address] [place], [place] | | | | | | [address] | | | | | | | [...]
--- OUTSIDE RECORDS SUMMARY | ~2019-10-20 | XMS | Encounter Summary ---
Demographics + + + | Address | [address] | | | [place] [address] | + + + | Home Phone [...] Providers + +------+ + | Care Licensed Reactor Operator Name | Role | Phone | [...] | (Primary Dx) | | | | [place], | [place], [place] | | | | | [place] [address] | [address] | | | | | [phone] | | | +--------+ + + + [...] 2019 | Visit | | [address] [facility] [place] | | | | | | [address] [place] | | | | | | [address] | | | | | | (Fax) [...]
--- OUTSIDE RECORDS SUMMARY | ~2019-10-20 | XMS | Encounter Summary ---
Demographics + + + | Address | [address] | | | [place] [address] | + + + | Home Phone | | + + + | Preferred Language | Unknown | + + + | Marital Status | | + + + | Church Affiliation | 1041 | + + + | Race | Unknown | + + + | Ethnic Group | Unknown | + + + Author + + + | Author | [facility] | | | and [place] | + + + | Organization | [facility] | | | [...] Team Providers + +------+ + | Care Clinical Aide Name | Role | Phone | + +------+ + | Kushal Costa MD | PCP | | + +------+ + Encounter Details +--------+ + + + + | Date | Type | Department | Care Team | Description | +--------+ + + + + | 02/11/ | Orders Only | [facility] | Danny Gandara MD | | | 2018 | | NEPHROLOGY [place] | [address] [place] | | | | | [address] [place] | [address] [place], [place] | | | | | 160 [place], [place] | [address] | | | | | [address] | | | | | | [phone] | | | +--------+ + + + [...] 2020 | Visit | | [address] [facility] | | | | | | 160 [place] | | | | | | [address] | | | | | | | [...] | | | LAB | | | BANGL[place]ES[place] | | | | | + + [...]
--- OUTSIDE RECORDS SUMMARY | ~2019-10-20 | XMS | Encounter Summary ---
Demographics + + + | Address | [address] | | | [place] [address] | + + + | Home Phone [...] Providers + +------+ + | Care Associate Pastor Name | Role | Phone | + +------+ + | Kushal Costa MD | PCP | | + +------+ + Encounter Details +--------+ + + + + | Date | Type | Department | Care Team | Description | +--------+ + + + + | 12/19/ | Orders Only | [facility] | Danny Gandara MD | | | 2017 | | NEPRHOLOGY [place] | [address] | | | | | [address] | 160 [place], [place] | | | | | [address] [place], [place] | [address] | | | | | [address] | | | | | | [phone] | | | +--------+ + + + [...] | Visit | | [address] [facility] | | | | | | 160 [place] | | | | | | [address] | | | | | | | [...]
--- OUTSIDE RECORDS SUMMARY | ~2019-10-20 | XMS | Encounter Summary ---
Demographics + + + | Address | [address] | | | [place] [address] | + + + | Home Phone | | + + + | Preferred Language | Unknown | + + + | Marital Status | | + + + | Rastafari Affiliation | 1041 | + + + | Race | Unknown | + + + | Ethnic Group | Unknown | + + + Author + + + | Author | [facility] | | | and [place] | + + + | Organization | [facility] | | | [...] Team Providers + +------+ + | Care Poacher Operator Name | Role | Phone | + +------+ + | Kushal Costa MD | PCP | | + +------+ + Encounter Details +--------+ + + + + | Date | Type | Department | Care Team | Description | +--------+ + + + + | 10/23/ | Orders Only | [facility] | Conversion | | | 2019 | | NEPHROLOGY [place] | Transaction, | | | | | [address] [place] | Provider Unknown | | | | | [address] [facility] [place] | | | | | | [address] | (Fax) | | | | | [phone] | | | +--------+ + + + [...] | Visit | | [address] [facility] | | | | | | [address] [place] | | | | | | [address] | | | | | | | [...]
--- OUTSIDE RECORDS SUMMARY | ~2019-10-20 | XMS | Encounter Summary ---
Demographics + + + | Address | [address] | | | [place] [address] | + + + | Home Phone [...] Team Providers + +------+ + | Care Duralumin Mechanic Name | Role | Phone | + +------+ + | Kushal Costa MD | PCP | | + +------+ + Encounter Details +--------+ + + + + | Date | Type | Department | Care Team | Description | +--------+ + + + + | 01/11/ | Orders Only | [facility] | Conversion | | | 2019 | | NEPHROLOGY [place] | Transaction, | | | | | [address] [place] | Provider Unknown | | | | | [address] [facility] [place] | | | | | | [address] | (Fax) | | | | | [phone] | | | +--------+ + + + [...] | | | | | | [address] [place] | | | | | | [address] | | | | | | | [...]
--- OUTSIDE RECORDS SUMMARY | ~2019-10-20 | XMS | Encounter Summary ---
Demographics + + + | Address | [address] | | | [place] [address] | + + + | Home Phone | | + + + | Preferred Language | Unknown | + + + | Marital Status | | + + + | Confucianism Affiliation | 1041 | + + + | Race | Unknown | + + + | Ethnic Group | Unknown | + + + Author + + + | Author | [facility] | | | and [place] | + + + | Organization | [facility] | | | and [...] Team Providers + +------+ + | Care Sewing Supervisor Name | Role | Phone | + +------+ + | Kushal Costa MD | PCP | | + +------+ + Encounter Details +--------+ + + + + | Date | Type | Department | Care Team | Description | +--------+ + + + + | 04/17/ | Orders Only | [facility] | Danny Gandara MD | | | 2018 | | NEPHROLOGY [place] | [address] [place] | | | | | [address] [place] | [address] [place], [place] | | | | | [address] [place], [place] | [address] | | | | | [address] | | | | | | [phone] | | | +--------+ + + + [...] 2020 | Visit | | [address] [facility] | | | | | | [address] [place] | | | | | | [address] | | | | | | | [...]
--- OUTSIDE RECORDS SUMMARY | ~2019-10-20 | XMS | Encounter Summary ---
Demographics + + + | Address | [address] | | | [place] [address] | + + + | Home Phone | | + + + | Preferred Language | Unknown | + + + | Marital Status | Single | + + + | Oriental Orthodox Affiliation | Unknown | + + + | Race | Unknown | + + + | Ethnic Group | Other Race | + + + Author + + + | Author | [facility] | + + + | Organization | [facility] | + + + | Address | Unknown | + + + | Phone | Unavailable | + + + Support + + +---------+ + | Name | Relationship | Address | Phone | + + +---------+ + | None None | ECON | Unknown | Unavailable | + + +---------+ + Care Team Providers + +------+ + | Care Pre Planning Advisor Name | Role | Phone | + +------+ + PCP | Unavailable | + +------+ + Encounter Details +--------+ + + + + | Date | Type | Department | Care Team | Description | +--------+ + + + + | 01/13/ | Documentati | Neurology at | Sy Goodwin, | | | 2007 | on | [facility] & | MD Angeles Fox | | | | | [address] | [place], [place] | | | | | Rj Fox Mailcode: | [address] | | | | | [facility] | [phone] | | | | | [facility], | | | | | | | | | | | | [place], [place] | | | | | | [address] | | | | | | [phone] | | | +--------+ + + + [...]
--- OUTSIDE RECORDS SUMMARY | ~2019-10-20 | XMS | Encounter Summary ---
Demographics + + + | Address | [address] | | | [place] [address] | + + + | Home Phone | | + + + | Preferred Language | Unknown | + + + | Marital Status | | + + + | Hinduism Affiliation | 1041 | + + + | Race | Unknown | + + + | Ethnic Group | Unknown | + + + Author + + + | Author | [facility] | | | and [place] | + + + | Organization | [facility] | | | [...] Providers + +------+ + | Care Manager Community Outreach Name | Role | Phone | + [...] [address] | | | | [place], | [address] [place], | | | | | [place] [address] | [place] [address] | | | | | [phone] | [phone] | | | | | | | [...] 2019 | Visit | | [address] [facility] | | | | | | 160 [place], [place] | | | | | | [address] | | | | | | | [...]
--- OUTSIDE RECORDS SUMMARY | ~2019-10-20 | XMS | Encounter Summary ---
Demographics + + + | Address | [address] | | | [place] [address] | + + + | Home Phone | | + + + | Preferred Language | Unknown | + + + | Marital Status | | + + + | Jain Affiliation | 1041 | + + + [...] Team Providers + +------+ + | Care Weight Checker Name | Role | Phone | + +------+ + | Kushal Costa MD | PCP | | + +------+ + Encounter Details +--------+ + + + + | Date | Type | Department | Care Team | Description | +--------+ + + + + | 07/26/ | Documentati | [facility] | Tob[place], | | | 2019 | on | NEPHROLOGY [place] | [address] [place] | | | | | [address] [place] | [place] | | | | | [address] [facility] [place] | | | | | | [address] | | | | | | [phone] | | | +--------+ + + + [...] 2019 | Visit | | [address] [facility] | | | | | | 160 [place], [place] | | | | | | [address] | | | | | | | [...]
--- OUTSIDE RECORDS SUMMARY | ~2019-10-20 | XMS | Encounter Summary ---
Demographics + + + | Address | [address] | | | [place] [address] | + + + | Home Phone | | + + + | Preferred Language | Unknown | + + + | Marital Status | | + + + | Adventist Affiliation | 1041 | + + + [...] Team Providers + +------+ + | Care Panelboard Operator Name | Role | Phone | + +------+ + | Kushal Costa MD | PCP | | + +------+ + Encounter Details +--------+ + + + + | Date | Type | Department | Care Team | Description | +--------+ + + + + | 01/28/ | Orders Only | [facility] | Conversion | | | 2019 | | NEPHROLOGY [place] | Transaction, | | | | | [address] [place] | Provider Unknown | | | | | [address] [facility] [place] | | | | | | [address] | (Fax) | | | | | [phone] | | | +--------+ + + + [...] 2019 | Visit | | [address] [facility] | | | | | | [address] [place] | | | | | | [address] | | | | | | | [...]
--- OUTSIDE RECORDS SUMMARY | ~2019-10-20 | XMS | Encounter Summary ---
Demographics + + + | Address | [address] | | | [place] [address] | + + + | Home Phone | | + + + | Preferred Language | Unknown | + + + | Marital Status | | + + + | Jew Affiliation | 1041 | + + + | Race | Unknown | + + + | Ethnic Group | Unknown | + + + Author + + + | Author | [facility] | | | and [place] | + + + | Organization | [facility] | | [...] Providers + +------+ + | Care Heel Seat Laster Name | Role | Phone | + +------+ + | Kushal Costa MD | PCP | | + +------+ + Encounter Details +--------+ + + + + | Date | Type | Department | Care Team | Description | +--------+ + + + + | 10/21/ | Orders Only | [facility] | Conversion | | | 2018 | | NEPHROLOGY [place] | Transaction, | | | | | [address] [place] | Provider Unknown | | | | | [address] [facility] [place] | | | | | | [address] | (Fax) | | | | | [phone] | | | +--------+ + + + [...] 2019 | Visit | | [address] [facility] | | | | | | [address] [facility] | | | | | | [address] | | | | | | | [...]
--- OUTSIDE RECORDS SUMMARY | ~2019-10-20 | XMS | Encounter Summary ---
Demographics + + + | Address | [address] | | | [place] [address] | + + + | Home Phone [...] Team Providers + +------+ + | Care Straightener Name | Role | Phone | + +------+ + | Kushal Costa MD | PCP | | + +------+ + Encounter Details +--------+ + + + + | Date | Type | Department | Care Team | Description | +--------+ + + + + | 03/16/ | Orders Only | [facility] | [place] Gandara MD | | | 2018 | | NEPHROLOGY [place] | [address] [place] | | | | | [address] [place] | [address] [place], [place] | | | | | [address] [place], [place] | [address] | | | | | [address] | | | | | | [phone] | | | +--------+ + + + [...] | | | | | | [address] [place] | | | | | | [address] | | | | | | | [...]
--- OUTSIDE RECORDS SUMMARY | ~2019-10-20 | XMS | Clinical Summary ---
Demographics + + + | Address | [address] | | | [place] [address] | + + + | Home Phone | | + + + | Preferred Language | Unknown | + + + | Marital Status | Single | + + + | Adventist Affiliation | Unknown | + + + [...] Team Providers + +------+ + | Care International Marketing Coordinator Name | Role | Phone | + +------+ + PCP | Unavailable | + +------+ + Source Comments [facility] is fully live on both [facility] and [facility] InPatient.[facility] Allergies Not on File Medications Not [...]
--- OUTSIDE RECORDS SUMMARY | 2019-10-20 16:40 | XMS ---
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 Care History Medical/Surgical 10/14/2019 [facility] I spoke with , Allegra - Dr. Costa has referred for home physical therapy.\T\nbsp; I mailed list of assisted living and caregiver support.\T\ nbsp; Allegra stated patient is being lazy about moving.\T\nbsp; He gets up in middle of the night on his own to pee and eat.\T\nbsp; Follow up appointment on 11/05/2019 with PCP. 10/11/2019 [facility] Patient was advised by Dr. Costa to go straight to ED.\T\nbsp; Patient\T\ nbsp; has follow up with Dr. Costa on 11/05/2019. 10/07/2018 [facility] - PATIENT IS CURRENTLY RECEIVING HOME HEALTH SERVICES THRU [facility]. PLEASE CONTACT HOME HEALTH SERVICES AT [phone] WHEN PATIENT IS SEEN IN THE ED. E.D. VISIT COUNT (12 MO.) [address] [facility] [address] [facility]. TOTAL 9 NOTE: Visits indicate total known visits. ED/UCC VISIT TRACKING (12 MO.) 10/20/2019 16:36 [facility] [place] TYPE: Emergency COMPLAINT: - FALL 10/13/2019 14:12 [facility] [place] TYPE: Emergency COMPLAINT: - BLEEDING DIAGNOSES: - Heart failure, unspecified - Other rat exterminator (current) drug therapy - Pressure ulcer of left buttock, unspecified stage - rodent exterminator (current) use of aspirin - Pressure ulcer of right buttock, unspecified stage - Unspecified atrial fibrillation - Allergy status to [facility] drug/meds/biol subst status 10/08/2019 13:39 [facility] [place] TYPE: Emergency COMPLAINT: - LOW B/P DIAGNOSES: - prison (current) use of aspirin - Other rat exterminator (current) drug therapy - Hypokalemia - Hypotension, unspecified - Allergy status to oth drug/meds/biol subst status - Hypokalemia - Unspecified atrial fibrillation - Hypotension, unspecified - Presence of cardiac pacemaker - Heart failure, unspecified 08/24/2019 11:14 [facility] [place] TYPE: Emergency COMPLAINT: - SOB [facility]18[facility]2019 15:[facility]: Emergency DIAGNOSES: - Syncope 03/17/2019 18:31 [facility] [place] TYPE: Emergency COMPLAINT: - FALL, INJURY 01/14/2019 17:07 [facility] [place] TYPE: Emergency COMPLAINT: - RECTAL BLEEDING DIAGNOSES: - Heart failure, unspecified - Other hemorrhoids - rodent exterminator (current) use of aspirin - Allergy status to oth drug/meds/biol subst status - Presence of cardiac pacemaker - Hemorrhage of anus and rectum - Residual hemorrhoidal skin tags - Unspecified atrial fibrillation 12/26/2018 18:44 [facility] [place] TYPE: Emergency COMPLAINT: - VOMITTITNG DIAGNOSES: - Other specified abnormal findings of blood chemistry - Other alf (current) drug therapy - Allergy status to oth drug/meds/biol subst status - Heart failure, unspecified - Presence of cardiac pacemaker - prison (current) use of aspirin - Unspecified atrial fibrillation - Weakness 12/08/2018 10:38 [facility] [place] TYPE: Emergency COMPLAINT: - R LEG PAIN,NON INJURY DIAGNOSES: - Heart failure, unspecified - Other alf (current) drug therapy - Localized edema - Unspecified atrial fibrillation - Cellulitis of right lower limb - prison (current) use of aspirin - Unspecified open wound, right lower leg, initial encounter - Allergy status to oth drug/meds/biol subst status INPATIENT VISIT TRACKING (12 MO.) 08/24/2019 19:08 [facility] [place] TYPE: Medical Surgical COMPLAINT: - A [...] Chronic kidney disease, stage 3 (moderate) - rodent exterminator (current) use of aspirin - 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 - Patient's other noncompliance with medication regimen - 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 - Restless legs syndrome - Obstructive sleep apnea (adult) (pediatric) - 1 Chronic kidney disease, stage 3 (moderate) - Hyperlipidemia, unspecified - Other alf (current) drug therapy - Varicose veins of [...] heart failure - Urgency of urination - rodent exterminator (current) use of aspirin - Non-prs chronic ulcer of right calf limited to brkdwn skin - Unspecified atrial fibrillation - Other alf (current) drug therapy - Acute on chronic diastolic (congestive) heart failure - Unspecified mood [affective] disorder 03/18/2019 15:32 [facility] TYPE: General Medicine DIAGNOSES: - Syncope - Breakdown (mechanical) of cardiac electronic device, init - Syncope and collapse - 1 Chronic kidney disease, stage 3 (moderate) 03/17/2019 18:32 [facility] [place] TYPE: Observation COMPLAINT: - SYNCOPE WITH COLLAPSE DIAGNOSES: - Patient's noncompliance w ot medical treatment and regimen - Other fall [...] cardiac pacemaker - Heart failure, unspecified - prison (current) use of aspirin - Syncope and collapse - Other rat exterminator (current) drug therapy 12/27/2018 01:07 [facility] TYPE: General Medicine DIAGNOSES: - Dyspnea - Elevated troponin - Fluid overload, unspecified [email or web address]
--- NOTE | 2019-10-21 17:08 | EKG ---
[facility] [address] [facility] [place] [address] Signed Atrial fibrillation with rapid ventricular response with premature ventricular or aberrantly conducted complexes Low voltage QRS Possible Anterolateral infarct (cited on or before 26-DEC-2018) Abnormal ECG When compared with ECG of 08-OCT-2019 14:47, Questionable change in QRS axis ST no longer depressed in Inferior leads Nonspecific T wave abnormality no longer evident in Lateral leads Confirmed by RUCHI LINARES DO ([id number]) on 10/21/2019 5:08:27 PM Electronically Signed By: RUCHI LINARES DO 10/21/19 1708 PATIENT NAME: FROYLAN GARCIA Electrocardiogram DATE OF : 38 PHYSICIAN: RUCHI LINARES DO REPORT #: [id number] REPORT IS CONFIDENTIAL AND NOT TO BE RELEASED WITHOUT AUTHORIZATION
== END 2019-10-20 20:55 | disposition short-term general hospital (02) ==
LOC: ED 16:36
DX: N39.0 Urinary tract infection, site not specified (principal); I95.9 Hypotension, unspecified; I48.91 Unspecified atrial fibrillation; E87.6 Hypokalemia; I21.4 Non-ST elevation (NSTEMI) myocardial infarction; M62.82 Rhabdomyolysis; N18.9 Chronic kidney disease, unspecified; Z88.8 Allergy status to other drugs, medicaments and biological substances; I50.9 Heart failure, unspecified; Z79.899 Other long term (current) drug therapy; Z79.82 Long term (current) use of aspirin
CPT/HCPCS: 36415; 51702; 71045; 73030; 80053; 81001; 82550; 83605; 83880; 84484; 85025; 85610; 85730; 93005; 93010; 99285-25; J0696; J1644; J7040